=== PATIENT | male | born 1940 | race Caucasian/White ===

== ENCOUNTER 2018-10-08 15:31 | Inpatient (IN) ==
[2018-10-08] MEDS ORDERED: raNITIdine 50 MG/102 ML BAG IV STA (16:02)
[2018-10-08] MEDS ORDERED: PANTOprazole 80 MG in DEXTROSE 5% 100 ML IV ONE (16:02)
[2018-10-08] MEDS ORDERED: SODIUM CHLORIDE 0.9% 1000ML 1,000 ML IV SCH ×2 (16:15→20:00)
--- NOTE | 2018-10-08 16:19 | Emergency Department Note ---
Entered by Janie Dial acting as a scribe for Dra Stark MD History of Present Illness General Chief complaint: GI Bleed Stated complaint: GI BLEEDING Time Seen by Provider: 10/08/18 15:52 Source: patient Mode of arrival: ambulatory Limitations: no limitations History of Present Illness Provider complaint: blood in stool Onset (ago): week(s) 1 Location: buttocks Pain Consistency: + other (persistent) Quality: + other (blood in stool) Associated symptoms: + other (Associated symptoms: lightheadedness. Denies: pain , nausea, chest pain, shortness of breath) The patient is a 77 year old male who presents to the Emergency Room with complaints of persistent blood in stool beginning about 1 week ago. He reports his symptoms began as diarrhea 6 days ago, and his diarrhea has resolved over the past few days. The patient reports he has had black stools and blood in the toilet bowl. 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 The patient denies abdominal pain, nausea, chest pain, shortness of breath. He notes lightheadedness. The patient has no history of GI bleed or blood transfusion. He takes a baby aspirin daily, and no other blood thinners. The patient was sent to the ED by Dr. Medrano for black heme positive stool. Home Medications Home Medications Medication Instructions Recorded Confirmed Type acetaminophen [Tylenol Extra 500 mg PO AMPM 10/08/18 10/08/18 History Strength] amlodipine [Norvasc] 10 mg PO DAILY 10/08/18 10/08/18 History aspirin [Aspir-Low] 81 mg PO DAILY 10/08/18 10/08/18 History atorvastatin [Lipitor] 40 mg PO DAILY 10/08/18 10/08/18 History cyanocobalamin (vitamin B-12) 1,000 mcg PO DAILY 10/08/18 10/08/18 History [Vitamin B-12] hydralazine 25 mg PO BID 10/08/18 10/08/18 History indapamide 2.5 mg PO DAILY 10/08/18 10/08/18 History metformin [Glucophage XR] 500 mg PO DAILY 10/08/18 10/08/18 History metoprolol succinate [Toprol XL] 200 mg PO DAILY 10/08/18 10/08/18 History propylene glycol [Systane Balance] 1 drp OPHTHALMIC (EYE) Q6H PRN 10/08/1810/08 History quinapril [Accupril] 40 mg PO DAILY 10/08/18 10/08/18 History vit A,C and [id number]-eaudipht 1 tab PO DAILY 10/08/18 10/08/18 History [Ocuvite with Lutein] Allergies Allergy/AdvReac Type Severity Reaction Status Date / Time No Known Allergies Allergy Unverified 10/08/18 15:40 Past Med/Surg History Medical History Alcohol use (Chronic) Lumbar spinal stenosis (Chronic) Dyslipidemia (Chronic) Prediabetes (Chronic) HTN (hypertension) (Chronic) Hx of spinal stenosis (Chronic) Umbilical hernia (Chronic) Surgical History History of tonsillectomy and adenoidectomy (Chronic) History of appendectomy (Chronic) Family History Mother CHF (congestive heart failure) Social History marital status: Current Living Situation: Family Feels Safe at Home: Yes Smoking Status: Former smoker Hx Alcohol Use: Yes Alcohol type: beer Alcohol Intake Frequency: 3 or more drinks per day Alcohol Intake Frequency Comment: 6-7 beers/day Review of Systems See HPI for pertinent positives & negatives. and A total of 10 systems reviewed and were otherwise negative Physical Exam Vital Signs Vital Signs - 24 hr 10/08/18 15:40 10/08/18 16:02 10/08/18 16:03 Temperature 36.6 C Temperature Source Oral Sepsis Recent Fever Within 48 Hours No Sepsis New/Unexplained Change in Mental Status No Sepsis Action Taken by Nursing No Action Required Pulse Rate 63 59 L Pulse Rate [Finger] 57 L Pulse Rhythm Regular Pulse Strength Normal Respiratory Rate 20 15 16 Respiratory Effort / Characteristics Non-Labored Spontaneous Respiratory Depth Normal Respiratory Pattern Regular Blood Pressure 92/53 L 115/45 L Blood Pressure [Right Arm] 115/45 L Blood Pressure Mean 66 68 Blood Pressure Mean [Right Arm] 68 Blood Pressure Position Sitting Pulse Oximetry 98 99 98 Oxygen Delivery Method Room Air Room Air 10/08/18 16:07 10/08/18 16:11 10/08/18 16:20 Temperature Temperature Source Sepsis Recent Fever Within 48 Hours Sepsis New/Unexplained Change in Mental Status Sepsis Action Taken by Nursing Pulse Rate 60 62 Pulse Rate [Finger] Pulse Rhythm Pulse Strength Respiratory Rate 15 14 Respiratory Effort / Characteristics Respiratory Depth Respiratory Pattern Blood Pressure Blood Pressure [Right Arm] Blood Pressure Mean Blood Pressure Mean [Right Arm] Blood Pressure Position Pulse Oximetry 99 99 98 Oxygen Delivery Method Room Air 10/08/18 16:30 10/08/18 16:40 10/08/18 16:50 Temperature Temperature Source Sepsis Recent Fever Within 48 Hours Sepsis New/Unexplained Change in Mental Status Sepsis Action Taken by Nursing Pulse Rate 61 58 L 68 Pulse Rate [Finger] Pulse Rhythm Pulse Strength Respiratory Rate 15 16 16 Respiratory Effort / Characteristics Respiratory Depth Respiratory Pattern Blood Pressure Blood Pressure [Right Arm] Blood Pressure Mean Blood Pressure Mean [Right Arm] Blood Pressure Position Pulse Oximetry 99 100 99 Oxygen Delivery Method 10/08/18 16:58 10/08/18 17:00 10/08/18 17:01 Temperature Temperature Source Sepsis Recent Fever Within 48 Hours Sepsis New/Unexplained Change in Mental Status Sepsis Action Taken by Nursing Pulse Rate 63 58 L Pulse Rate [Finger] 73 Pulse Rhythm Pulse Strength Respiratory Rate 19 17 13 Respiratory Effort / Characteristics Respiratory Depth Respiratory Pattern Blood Pressure 115/63 Blood Pressure [Right Arm] Blood Pressure Mean 80 Blood Pressure Mean [Right Arm] Blood Pressure Position Pulse Oximetry 99 81 L 100 Oxygen Delivery Method Room Air 10/08/18 17:10 10/08/18 17:20 10/08/18 17:30 Temperature Temperature Source Sepsis Recent Fever Within 48 Hours Sepsis New/Unexplained Change in Mental Status Sepsis Action Taken by Nursing Pulse Rate 60 67 63 Pulse Rate [Finger] Pulse Rhythm Pulse Strength Respiratory Rate 19 16 21 Respiratory Effort / Characteristics Respiratory Depth Respiratory Pattern Blood Pressure Blood Pressure [Right Arm] Blood Pressure Mean Blood Pressure Mean [Right Arm] Blood Pressure Position Pulse Oximetry 99 98 98 Oxygen Delivery Method 10/08/18 17:40 10/08/18 17:50 10/08/18 18:00 Temperature Temperature Source Sepsis Recent Fever Within 48 Hours Sepsis New/Unexplained Change in Mental Status Sepsis Action Taken by Nursing Pulse Rate 58 L Pulse Rate [Finger] Pulse Rhythm Pulse Strength Respiratory Rate 16 22 26 H Respiratory Effort / Characteristics Respiratory Depth Respiratory Pattern Blood Pressure 119/50 L Blood Pressure [Right Arm] Blood Pressure Mean 73 Blood Pressure Mean [Right Arm] Blood Pressure Position Pulse Oximetry 99 97 98 Oxygen Delivery Method 10/08/18 18:01 10/08/18 18:18 10/08/18 18:34 Temperature Temperature Source Sepsis Recent Fever Within 48 Hours Sepsis New/Unexplained Change in Mental Status Sepsis Action Taken by Nursing Pulse Rate Pulse Rate [Finger] 66 Pulse Rhythm Pulse Strength Respiratory Rate 14 20 20 Respiratory Effort / Characteristics Respiratory Depth Respiratory Pattern Blood Pressure Blood Pressure [Right Arm] 119/50 L Blood Pressure Mean Blood Pressure Mean [Right Arm] 73 Blood Pressure Position Pulse Oximetry 99 97 97 Oxygen Delivery Method Room Air Room Air GENERAL: Patient is in no acute distress. HEENT: No acute trauma, normocephalic atraumatic, mucous membranes moist, no nasal congestion, no scleral icterus. NECK: No stridor, no adenopathy, no meningismus, trachea is midline. LUNGS: Clear to auscultation bilaterally, no wheeze, no rhonchi, breath sounds equal. HEART: 3/6 systolic murmur, regular rate and rhythm. ABDOMEN: Soft, nontender, bowel sounds positive, nontender umbilical hernia, no peritonitis. EXTREMITIES: No cyanosis, mild bilateral pedal edema, full range of motion of all the joints without pain or difficulty, no signs for acute trauma. NEUROLOGIC: Oriented x 3, no acute motor or sensory deficits, no focal weakness. SKIN: No rash, no jaundice, no diaphoresis. RETCAL: Black, heme positive stool as per patient's primary care office. Course 1553: Past medical records reviewed. The patient was evaluated in room A9B, and a complete history and physical examination were performed. 1703: I reviewed the patient's case [facility] She will evaluate the patient for further management. 1714: Upon reevaluation, the patient is resting. I discussed test results. They verbalized agreement with the treatment plan. Consultations Consultation #1: I reviewed the patient's case [facility]. She will evaluate the patient for further management. Time: 17:03 Administered Medications Sodium Chloride (Nss 1000ml) 1,000 mls @ 100 mls/hr IV .Q10H HUMBLE Stop: 10/09/18 02:14 Last Admin: 10/08/18 16:21 Dose: 100 mls/hr Pantoprazole Sodium 40 mg/ (Dextrose) 100 mls @ 20 mls/hr IV Q5H HUMBLE Stop: 11/07/18 16:14 Last Admin: 10/08/18 16:57 Dose: 8 mg/hr, 20 mls/hr Discontinued Medications Ranitidine HCl (Zantac) 50 mg in 102 mls @ 200 mls/hr IV NOW STA Stop: 10/08/18 16:32 Last Infusion: 10/08/18 16:57 Dose: 0 mls/hr Admin: 10/08/18 16:22 Dose: 200 mls/hr Pantoprazole Sodium 80 mg/ (Dextrose) 120 mls @ 400 mls/hr IV NOW ONE Stop: 10/08/18 16:19 Last Infusion: 10/08/18 16:57 Dose: Admin: 10/08/18 16:36 Dose: 400 mls/hr Medical Decision Making Differential Diagnosis Etiologies considered include upper GI bleeding, lower GI bleeding, anemia, electrolyte imbalance, coagulopathy, diverticulitis, ulcer, gastritis, malignancy. Medical Records Attestation: I reviewed the patient's medical records. Home Medications Current Medication List: was personally reviewed by me Laboratory Data Attestation: I reviewed the patient's lab results. Result diagrams: 10/08/18 16:25 10/08/18 16:25 Lab Results 10/08/18 10/08/18 10/08/18 Range/Units 16:21 16:25 16:25 WBC 9.47 (4.8-10.8) K/uL RBC 2.71 L (4.7-6.1) M/uL Hgb 9.2 L (14.0-18.0) g/dL Hct 27.0 L (42-52) % MCV 99.6 (80-100) fL MCH 33.9 (25-34) pg MCHC 34.1 (32-36) g/dL RDW Std Deviation 49.5 H (36.4-46.3) fL RDW Coeff of Steven 13.9 (11.5-14.5) % Plt Count 286 (130-400) K/uL MPV 10.4 (7.4-10.4) fL Immature Gran % (Auto) 0.3 % Neut % (Auto) 71.7 % Lymph % (Auto) 19.6 % Reynolds % (Auto) 7.2 % Eos % (Auto) 1.0 % Baso % (Auto) 0.2 % Immature Gran # (Auto) 0.03 H (0.00-0.02) K/uL Neut # (Auto) 6.79 H (1.4-6.5) K/uL Lymph # (Auto) 1.86 (1.2-3.4) K/uL Reynolds # (Auto) 0.68 H (0.11-0.59) K/uL Eos # (Auto) 0.09 (0-0.5) K/uL Baso # (Auto) 0.02 (0-0.2) K/uL PT 11.1 (9.0-12.0) Seconds INR 1.1 (0.9-1.1) APTT 24.5 (21.0-31.0) Seconds PTT Ratio 0.9 Sodium (136-145) mmol/L Potassium (3.5-5.1) mmol/L Chloride (98-107) mmol/L Carbon Dioxide (21-32) mmol/L Anion Gap (3-11) BUN (7-18) mg/dl Creatinine (0.6-1.4) mg/dl Est Cr Clr Drug Dosing ml/min Est GFR ( Amer) Est GFR (Non-Af Amer) BUN/Creatinine Ratio (10-20) Glucose (70-99) mg/dl Calcium (8.5-10.1) mg/dl Total Bilirubin (0.2-1) mg/dl AST (15-37) U/L ALT (12-78) U/L Alkaline Phosphatase (45-117) U/L Troponin I (0-0.045) ng/ml Total Protein (6.4-8.2) gm/dl Albumin (3.4-5.0) gm/dl Globulin (2.5-4.0) gm/dl Albumin/Globulin Ratio (0.9-2) Blood Type O Positive Antibody Screen NEGATIVE 10/08/18 Range/Units 16:25 WBC (4.8-10.8) K/uL RBC (4.7-6.1) M/uL Hgb (14.0-18.0) g/dL Hct (42-52) % MCV (80-100) fL MCH (25-34) pg MCHC (32-36) g/dL RDW Std Deviation (36.4-46.3) fL RDW Coeff of Steven (11.5-14.5) % Plt Count (130-400) K/uL MPV (7.4-10.4) fL Immature Gran % (Auto) % Neut % (Auto) % Lymph % (Auto) % Reynolds % (Auto) % Eos % (Auto) % Baso % (Auto) % Immature Gran # (Auto) (0.00-0.02) K/uL Neut # (Auto) (1.4-6.5) K/uL Lymph # (Auto) (1.2-3.4) K/uL Reynolds # (Auto) (0.11-0.59) K/uL Eos # (Auto) (0-0.5) K/uL Baso # (Auto) (0-0.2) K/uL PT (9.0-12.0) Seconds INR (0.9-1.1) APTT (21.0-31.0) Seconds PTT Ratio Sodium 132 L (136-145) mmol/L Potassium 3.1 L (3.5-5.1) mmol/L Chloride 96 L (98-107) mmol/L Carbon Dioxide 25 (21-32) mmol/L Anion Gap 11.0 (3-11) BUN 25 H (7-18) mg/dl Creatinine 1.23 (0.6-1.4) mg/dl Est Cr Clr Drug Dosing 62.1 ml/min Est GFR ( Amer) 64.3 Est GFR (Non-Af Amer) 55.5 BUN/Creatinine Ratio 20.1 H (10-20) Glucose 114 H (70-99) mg/dl Calcium 9.0 (8.5-10.1) mg/dl Total Bilirubin 0.4 (0.2-1) mg/dl AST 24 (15-37) U/L ALT 34 (12-78) U/L Alkaline Phosphatase 78 (45-117) U/L Troponin I < 0.015 (0-0.045) ng/ml Total Protein 7.2 (6.4-8.2) gm/dl Albumin 3.6 (3.4-5.0) gm/dl Globulin 3.6 (2.5-4.0) gm/dl Albumin/Globulin Ratio 1.0 (0.9-2) Blood Type Antibody Screen Imaging Data Radiologist's Impression: Radiology results as stated below per my review and the radiologist's interpretation: XR chest 1V portable HISTORY: 77 years-old Male gi bleed acute GI bleed COMPARISON: None available TECHNIQUE: Portable AP view of the chest FINDINGS: Cardiac silhouette is mildly enlarged. Calcification the thoracic aortic arch. There is no pneumothorax, large pleural effusion, focal airspace consolidation or overt pulmonary edema. Mild blunting of the costophrenic angles may reflect atelectasis or trace effusions. Bones of the chest appear grossly intact. Right rotator cuff calcific tendinosis. IMPRESSION: Cardiomegaly without acute process. The above report was generated using voice recognition software. It may contain grammatical, syntax or spelling errors. Electronically signed by: David Hemphill M.D. 10/08/2018 4:52 PM ECG Data Attestation: I personally reviewed and interpreted this ECG as follows: Indication: weakness Rate (beats per minute): 57 Rhythm: sinus bradycardia Findings: no PVC and no ST elevation Blood Pressure Blood Pressure Findings: Normal blood pressure Blood Pressure Disposition: did not require urgent referral MDM Narrative There is no leukocytosis. The patient is anemic with a hemoglobin of 9.2. This is consistent with his blood per rectum. There is no coagulopathy. No concerning electrolyte abnormality or renal failure. No evidence for hepatitis. EKG showed a sinus rhythm, no acute ischemia. Cardiac enzyme testing x1 is not consistent with acute cardiac injury. Chest film did not show pneumonia or CHF. On exam, the patient was not febrile or toxic. His stool was heme positive as per his doctor's visit today. The patient received IV saline, he was given IV Zantac and IV Protonix. He was placed on a Protonix drip. His low blood pressure improved with the IV fluids. The patient requires a hospital stay. At this point, he does not require blood a transfusion, his hemoglobin will need followed. GI needs to be involved. Based on his story, I suspect upper GI bleeding. I did speak to the patient and welfare case worker. The on-call hospitalist was consulted. Impression & Plan GI bleed, Hypotension, Anemia, Lightheadedness Critical Care Time I have personally spent greater than 34 minutes of critical care time in the direct management of this patient. This includes bedside care, interpretation of diagnostic studies and testing, discussion with consultants, the patient, and family members, and other required patient management activities. This 34 minutes is in excess of all separately billable procedures. Critical Care Time: Yes Total Critical Care Time: 34 Discharge Plan Visit Data Chief Complaint: GI Bleed Stated Complaint: GI BLEEDING ED Provider: Dar Stark Discharge Problem: GI bleed, Hypotension, Anemia, Lightheadedness Patient Disposition: Being Evaluated by Hospitalist Discharge Instructions Interventions: ED Discharge Assessment Last Done: 10/08/18 18:34 Forms Stand Alone Forms: My [facility] Prescriptions Prescriptions: No Action atorvastatin [Lipitor] 40 mg tablet 40 mg PO DAILY RF: 0 cyanocobalamin (vitamin B-12) [Vitamin B-12] 1,000 mcg tablet 1,000 mcg PO DAILY RF: 0 aspirin [Aspir-Low] 81 mg Tablet,Delayed Release (Dr/Ec) 81 mg PO DAILY RF: 0 vit A,C and [id number]-bsaiowtz [Ocuvite with Lutein] 1,000 unit-200 mg-60 unit- 2 mg Tablet 1 tab PO DAILY RF: 0 propylene glycol [Systane Balance] 0.6 % Drops 1 drp OPHTHALMIC (EYE) Q6H PRN (Reason: Dry Eyes) RF: 0 indapamide 2.5 mg tablet 2.5 mg PO DAILY RF: 0 metoprolol succinate [Toprol XL] 200 mg tablet extended release 24 hr 200 mg PO DAILY RF: 0 hydralazine 25 mg Tablet 25 mg PO BID RF: 0 acetaminophen [Tylenol Extra Strength] 500 mg Tablet 500 mg PO AMPM RF: 0 quinapril [Accupril] 40 mg tablet 40 mg PO DAILY RF: 0 amlodipine [Norvasc] 10 mg tablet 10 mg PO DAILY RF: 0 metformin [Glucophage XR] 500 mg tablet extended release 24 hr 500 mg PO DAILY RF: 0 Referrals Referrals: Jerry Medrano [Primary Care Provider] - The scribe's documentation has been prepared under my direction and personally reviewed by me in its entirety. I confirm that the note above accurately reflects all work, treatment, procedures, and medical decision making performed by me.
[2018-10-08 16:35] LABS: Basophils # (auto) 0.02 K/uL (0-0.2); Basophils % (auto) 0.2 %; Eosinophils # (auto) 0.09 K/uL (0-0.5); Hemoglobin 9.2 g/dL (14.0-18.0); Immature Granulocytes # (auto) 0.03 K/uL (0.00-0.02); Immature Granulocytes % (auto) 0.3 %; Lymphocytes # (auto) 1.86 K/uL (1.2-3.4); Lymphocytes % (auto) 19.6 %; Mean Corpuscular Hgb Conc 34.1 g/dL (32-36); Mean Corpuscular Volume 99.6 fL (80-100); Mean Platelet Volume 10.4 fL (7.4-10.4); Monocytes # (auto) 0.68 K/uL (0.11-0.59); Monocytes % (auto) 7.2 %; Neutrophils # (auto) 6.79 K/uL (1.4-6.5); Neutrophils % (auto) 71.7 %; Platelet Count 286 K/uL (130-400); RDW Coefficient of Variation 13.9 % (11.5-14.5); RDW Standard Deviation 49.5 fL (36.4-46.3); Red Blood Count 2.71 M/uL (4.7-6.1); White Blood Count 9.47 K/uL (4.8-10.8)
[2018-10-08 16:46] LABS: INR 1.1 (0.9-1.1); Partial Thromboplastin Ratio 0.9; Partial Thromboplastin Time 24.5 Seconds (21.0-31.0); Prothrombin Time 11.1 Seconds (9.0-12.0)
[2018-10-08 16:50] LABS: Alanine Aminotransferase 34 U/L (12-78); Albumin Level 3.6 gm/dl (3.4-5.0); Aspartate Aminotransferase 24 U/L (15-37); BUN Creatinine Ratio 20.1 (10-20); Blood Urea Nitrogen 25 mg/dl (7-18); Carbon Dioxide 25 mmol/L (21-32); Chloride 96 mmol/L (98-107); Creatinine Clr Calc Pharmacy 62.1 ml/min; Est GFR (African American) 64.3; Est GFR (Non-African American) 55.5; Glucose 114 mg/dl (70-99); Potassium 3.1 mmol/L (3.5-5.1); Sodium 132 mmol/L (136-145)
--- NOTE | 2018-10-08 16:53 | XRay Report ---
XR chest 1V portable HISTORY: 77 years-old Male gi bleed acute GI bleed COMPARISON: None available TECHNIQUE: Portable AP view of the chest FINDINGS: Cardiac silhouette is mildly enlarged. Calcification the thoracic aortic arch. There is no pneumothor ax, large pleural effusion, focal airspace consolidation or overt pulmonary edema. Mild blunting of t he costophrenic angles may reflect atelectasis or trace effusions. Bones of the chest appear grossly intact. Right rotator cuff calcific tendinosis. IMPRESSION: Cardiomegaly without acute process. The above report was generated using voice recognition software. It may contain grammatical, syntax o r spelling errors. Electronically signed by: David Hemphill M.D. 10/08/2018 4:52 PM
[2018-10-08 16:55] LABS: Alkaline Phosphatase 78 U/L (45-117); Bilirubin,Total 0.4 mg/dl (0.2-1); Globulin 3.6 gm/dl (2.5-4.0); Total Protein 7.2 gm/dl (6.4-8.2); Troponin I < 0.015 ng/ml (0-0.045)
[2018-10-08] MEDS: PANTOprazole 40 MG in DEXTROSE 5% 100 ML IV SCH ×2 (16:57→21:47)
--- NOTE | 2018-10-08 18:33 | History & Physical Report ---
Date of Service October 08, 2018 Assessment & Plan (1) GI bleed: (2) Anemia: -Admit to [facility] with telemetry -Patient sent to ED by PCP for evaluation of lightheadedness and black stools -Patient reports 1 week of black diarrhea, initially with some bright red blood ; over the past day, stools have been more formed and brown -In the ED, Hgb 9.2 (unknown baseline); BP borderline low, systolics 110s -Recheck Hgb at 2200, transfuse if < 8.0 -Started on PPI drip in the ED, will continue with -Clear liquids, n.p.o. after midnight -GI consult -Patient had been taking naproxen regularly however stopped 1 month ago -History of chronic alcohol use, however noted normal LFTs, low suspicion for varices -No history of prior EGD or colonoscopy (3) HTN (hypertension): -Hold amlodipine, quinapril, hydralazine, indapamide, metoprolol for now due to borderline low BPs (4) Prediabetes: -Hgb A1c 5.5 02/2018 -Hold metformin and utilize NovoLog per protocol while hospitalized (5) Dyslipidemia: -Hold statin for now (6) Alcohol use: -Patient reports 6-7 beers/day -No history of withdrawal in the past, and no alcohol use in the past 5 days -will place on alcohol withdrawal "at risk" protocol -Consider starting multivitamin, folic acid, B12 (7) DVT prophylaxis: -SCDs due to GI bleeding History of Present Illness Chief Complaint: Black Stools, Lightheaded Primary Care Provider: Jerry Medrano 77-year-old male who was sent to the ED by his PCP for evaluation of black stools and lightheadedness. Patient reports he developed black diarrhea about 6 days ago. Initially, he reports some bright red blood. Over the past day, stools have become formed and more brown. He reports some mild lightheadedness but denies any dizziness or syncopal events. No abdominal pain, nausea, vomiting. He denies chest pain or shortness of breath. No fevers or chills. He denies any urinary symptoms. Patient reports he had been taking naproxen somewhat regularly however stopped 1 month ago and now takes Tylenol twice daily for pain. He takes a baby aspirin, no other antiplatelets or anticoagulants. In the ED, hemoglobin 9.2 (unknown baseline), BP borderline low with systolic blood pressures 110s. Patient was given IVF and started on PPI drip. Allergies Allergy/AdvReac Type Severity Reaction Status Date / Time No Known Allergies Allergy Unverified 10/08/18 15:40 Home Medications Home Medications Medication Instructions Recorded Confirmed Type acetaminophen [Tylenol Extra 500 mg PO AMPM 10/08/18 10/08/18 History Strength] amlodipine [Norvasc] 10 mg PO DAILY 10/08/18 10/08/18 History aspirin [Aspir-Low] 81 mg PO DAILY 10/08/18 10/08/18 History atorvastatin [Lipitor] 40 mg PO DAILY 10/08/18 10/08/18 History cyanocobalamin (vitamin B-12) 1,000 mcg PO DAILY 10/08/18 10/08/18 History [Vitamin B-12] hydralazine 25 mg PO BID 10/08/18 10/08/18 History indapamide 2.5 mg PO DAILY 10/08/18 10/08/18 History metformin [Glucophage XR] 500 mg PO DAILY 10/08/18 10/08/18 History metoprolol succinate [Toprol XL] 200 mg PO DAILY 10/08/18 10/08/18 History propylene glycol [Systane Balance] 1 drp OPHTHALMIC (EYE) Q6H PRN 10/08/1810/08 History quinapril [Accupril] 40 mg PO DAILY 10/08/18 10/08/18 History vit A,C and I-bhpbyb-semxwviy 1 tab PO DAILY 10/08/18 10/08/18 History [Ocuvite with Lutein] Past Med/Surg History Medical History Alcohol use (Chronic) Lumbar spinal stenosis (Chronic) Dyslipidemia (Chronic) Prediabetes (Chronic) HTN (hypertension) (Chronic) Hx of spinal stenosis (Chronic) Umbilical hernia (Chronic) Surgical History History of tonsillectomy and adenoidectomy (Chronic) History of appendectomy (Chronic) Family History Mother CHF (congestive heart failure) Social History marital status: Current Living Situation: Spouse Other Information That Helps Us Care for You: No Feels Safe at Home: Yes Safety Concerns: Feels Safe At This Time Smoking Status: Former smoker Do You Dip or Chew Tobacco: No Smoking End Date: 30 years ago Second Hand Exposure: No Hx Alcohol Use: Yes Alcohol type: beer Alcohol Intake Frequency: 3 or more drinks per day Alcohol Intake Frequency Comment: 6-7 beers/day Hx Substance Use: No Beliefs That Will Affect Care: None Preferred Language: [place] Communication Ability: Effective [employer] Salesperson Required: No Review of Systems ROS per HPI, all other systems reviewed and negative Physical Exam 2 Vital Signs (Past 24 Hours): Last Vital Signs Temp 36.6 C 10/08/18 15:40 Pulse 66 10/08/18 18:18 Resp 20 10/08/18 18:18 BP 119/50 L 10/08/18 18:18 Pulse Ox 97 10/08/18 18:18 Constitutional: WD/WN, vitals as above + obese Eyes: PERRL, conjunctivae normal, anicteric sclerae ENMT: external ear and nose normal, oropharynx normal Respiratory: normal respiratory effort, lungs clear to auscultation Cardiovascular: Rate/Rhythm: regular rate and regular rhythm Vessels: normal peripheral pulses Extremities: + edema (+1 BLLE) Gastrointestinal (Abdomen): Inspection/Auscultation: + abdomen distended and normal bowel sounds Percussion/Palpation: abdomen soft and + hernia ( umbilican); abdomen nontender and no hepatosplenomegaly Musculoskeletal: no cyanosis or clubbing, extremities motor strength 5/5 Skin: no rashes, warm and dry Neurologic: PERRL, EOMI, accommodation nl, no face palsy, no dysarthria Psychiatric: A+Ox3, euthymic affect Results & Data Laboratory Results Laboratory Last Values WBC 9.47 K/uL (4.8-10.8) 10/08/18 16:25 RBC 2.71 M/uL (4.7-6.1) L 10/08/18 16:25 Hgb 9.2 g/dL (14.0-18.0) L 10/08/18 16:25 Hct 27.0 % (42-52) L 10/08/18 16:25 MCV 99.6 fL (80-100) 10/08/18 16:25 MCH 33.9 pg (25-34) 10/08/18 16:25 MCHC 34.1 g/dL (32-36) 10/08/18 16:25 RDW Std Deviation 49.5 fL (36.4-46.3) H 10/08/18 16:25 RDW Coeff of Steven 13.9 % (11.5-14.5) 10/08/18 16:25 Plt Count 286 K/uL (130-400) 10/08/18 16:25 MPV 10.4 fL (7.4-10.4) 10/08/18 16:25 Immature Gran % (Auto) 0.3 % 10/08/18 16:25 Neut % (Auto) 71.7 % 10/08/18 16:25 Lymph % (Auto) 19.6 % 10/08/18 16:25 Otoe % (Auto) 7.2 % 10/08/18 16:25 Eos % (Auto) 1.0 % 10/08/18 16:25 Baso % (Auto) 0.2 % 10/08/18 16:25 Immature Gran # (Auto) 0.03 K/uL (0.00-0.02) H 10/08/18 16:25 Neut # (Auto) 6.79 K/uL (1.4-6.5) H 10/08/18 16:25 Lymph # (Auto) 1.86 K/uL (1.2-3.4) 10/08/18 16:25 Otoe # (Auto) 0.68 K/uL (0.11-0.59) H 10/08/18 16:25 Eos # (Auto) 0.09 K/uL (0-0.5) 10/08/18 16:25 Baso # (Auto) 0.02 K/uL (0-0.2) 10/08/18 16:25 PT 11.1 Seconds (9.0-12.0) 10/08/18 16:25 INR 1.1 (0.9-1.1) 10/08/18 16:25 APTT 24.5 Seconds (21.0-31.0) 10/08/18 16:25 PTT Ratio 0.9 10/08/18 16:25 Sodium 132 mmol/L (136-145) L 10/08/18 16:25 Potassium 3.1 mmol/L (3.5-5.1) L 10/08/18 16:25 Chloride 96 mmol/L (98-107) L 10/08/18 16:25 Carbon Dioxide 25 mmol/L (21-32) 10/08/18 16:25 Anion Gap 11.0 (3-11) 10/08/18 16:25 BUN 25 mg/dl (7-18) H 10/08/18 16:25 Creatinine 1.23 mg/dl (0.6-1.4) 10/08/18 16:25 Est Cr Clr Drug Dosing 62.1 ml/min 10/08/18 16:25 Est GFR ( Amer) 64.3 10/08/18 16:25 Est GFR (Non-Af Amer) 55.5 10/08/18 16:25 BUN/Creatinine Ratio 20.1 (10-20) H 10/08/18 16:25 Glucose 114 mg/dl (70-99) H 10/08/18 16:25 Calcium 9.0 mg/dl (8.5-10.1) 10/08/18 16:25 Total Bilirubin 0.4 mg/dl (0.2-1) 10/08/18 16:25 AST 24 U/L (15-37) 10/08/18 16:25 ALT 34 U/L (12-78) 10/08/18 16:25 Alkaline Phosphatase 78 U/L (45-117) 10/08/18 16:25 Troponin I < 0.015 ng/ml (0-0.045) 10/08/18 16:25 Total Protein 7.2 gm/dl (6.4-8.2) 10/08/18 16:25 Albumin 3.6 gm/dl (3.4-5.0) 10/08/18 16:25 Globulin 3.6 gm/dl (2.5-4.0) 10/08/18 16:25 Albumin/Globulin Ratio 1.0 (0.9-2) 10/08/18 16:25 Blood Type O Positive 10/08/18 16:21 Antibody Screen NEGATIVE 10/08/18 16:21 Diagnostic Findings CXR IMPRESSION: Cardiomegaly without acute process. Code Status & VTE Plan VTE Prophylaxis Plan VTE Prophylaxis will be ordered: Yes Supervising Physician Co-Signing Physician Notes Patient is a 77 yr male who presents with melena, lightheadedness since 1 week duration. Patient had diarrhea 6 days ago which currently resolved. He is currently on aspirin. Patient was taking Naproxen which he stopped 1 month ago. He admits to drinking beer on a daily basis but denies any history of liver disease in the past. Hb is 9.2 today. Patient will be started on IV Protonix, IV fluids, aspirin held and NPO after midnight for possible EGD/Colonoscopy in AM. GI consulted. Monitor for alcohol withdrawal. Start on Thiamine and folic acid in AM once after EGD. Potassium and magnesium supplements for electrolyte imbalance. On exam patient is Obese, No distress, Lungs CTA, S1, S2, +murmur, Abdominal/umbilical hernia, 1+ B/L LE edema. I personally reviewed the record. Patient is interviewed and examined at bedside. Patient's care is coordinated with Tomasa Souza INTERNAL MEDICINE NURSE. Please refer to the documentation above for details of patient's presentation and for discussion of other issues.
[2018-10-08] MEDS ORDERED: GLUCAGON FOR INJ 1 MG VIAL SQ PRN (19:54)
[2018-10-08] MEDS ORDERED: GLUCOSE 10 TABS/TUBE PO PRN (19:54)
[2018-10-08] MEDS ORDERED: ARTIFICIAL TEARS OP PRN (19:54)
[2018-10-08] MEDS ORDERED: CARBOHYDRATES FOR HYPOGLYCEMIA PO PRN (19:54)
[2018-10-08] MEDS ORDERED: DEXTROSE 50% 50 ML SYRINGE IV PRN (19:54)
[2018-10-08] MEDS ORDERED: GLUCOSE 40% GEL 15 GM TUBE PO PRN (19:54)
[2018-10-08] MEDS ORDERED: ACETAMINOPHEN 325 MG TAB PO PRN (19:54)
[2018-10-08] MEDS ORDERED: LORazepam 1 MG TAB PO PRN (19:54)
[2018-10-08] MEDS ORDERED: POTASSIUM CHLORIDE 20 MEQ TABCR PO STA (19:57)
[2018-10-08] MEDS: MAGNESIUM SULFATE / D5W 1 GM/100 ML BAG IV SCH ×2 (21:56→23:23)
[2018-10-08] MEDS: INSULIN ASPART 100 UNITS/ML 3 ML PEN SC SCH (22:17)
[2018-10-08 22:32] LABS: Hematocrit (blood only) 23.8 % (42-52); Hemoglobin 8.2 g/dL (14.0-18.0)
[2018-10-09] MEDS: PANTOprazole 40 MG in DEXTROSE 5% 100 ML IV SCH ×5 (02:28→22:21)
[2018-10-09] MEDS ORDERED: MAGNESIUM SULFATE / D5W 1 GM/100 ML BAG IV ONE (03:36)
[2018-10-09] MEDS ORDERED: POTASSIUM CHLORIDE 20 MEQ TABCR PO STA ×2 (03:36→05:44)
[2018-10-09] MEDS: NSS + 20MEQ KCL 20 MEQ/1,000 ML BAG IV SCH ×2 (04:16→17:32)
[2018-10-09] MEDS: METOPROLOL SUCC 25MG EXT REL TAB PO SCH (04:20)
[2018-10-09 04:38] LABS: Basophils # (auto) 0.03 K/uL (0-0.2); Basophils % (auto) 0.4 %; Eosinophils # (auto) 0.15 K/uL (0-0.5); Eosinophils % (auto) 1.8 %; Hemoglobin 8.2 g/dL (14.0-18.0); Immature Granulocytes # (auto) 0.02 K/uL (0.00-0.02); Immature Granulocytes % (auto) 0.2 %; Lymphocytes # (auto) 2.43 K/uL (1.2-3.4); Lymphocytes % (auto) 29.6 %; Mean Corpuscular Hgb Conc 34.2 g/dL (32-36); Mean Corpuscular Volume 99.2 fL (80-100); Mean Platelet Volume 10.2 fL (7.4-10.4); Monocytes # (auto) 0.73 K/uL (0.11-0.59); Monocytes % (auto) 8.9 %; Neutrophils # (auto) 4.84 K/uL (1.4-6.5); Neutrophils % (auto) 59.1 %; Platelet Count 247 K/uL (130-400); RDW Standard Deviation 50.1 fL (36.4-46.3); Red Blood Count 2.42 M/uL (4.7-6.1)
[2018-10-09 04:54] LABS: BUN Creatinine Ratio 19.5 (10-20); Calcium 8.1 mg/dl (8.5-10.1); Est GFR (African American) 84.6; Magnesium 2.1 mg/dl (1.8-2.4)
[2018-10-09 05:07] LABS: RBC Morphology Unremarkable
[2018-10-09] MEDS: ATORVASTATIN 40 MG TAB PO SCH ×2 (08:18→12:45)
[2018-10-09] MEDS: AMLODIPINE BESYLATE 5 MG TAB PO SCH ×2 (08:19→08:25)
[2018-10-09] MEDS: INSULIN ASPART 100 UNITS/ML 3 ML PEN SC SCH ×4 (08:21→20:53)
--- NOTE | 2018-10-09 09:28 | Gastrointestinal Consultation ---
Date of Consultation October 09, 2018 Assessment & Plan (1) Anemia: 77 year old male admitted with anemia, HGB 8.2 and resolved melena. He was on daily ASA and using BID aleve for back pain. DDX discussed: UGI bleed vs LGI bleed. - Electrolytes per primary service - IV PPI drip - NPO - EGD today - Trend H&H - Tranfuse PRN - Monitor GI output - Pending results of EGD will discuss if colonoscopy is warranted - He has never had a colonscopy and is hesistant to arranging this Supervising Physician Co-Signing Physician Notes I saw and evaluated the patient. He reports having a week of dark sticky stool as an outpatient which is resolved since admission. We have elected to pursue upper endoscopy this morning. Physical examination No obvious distress Regular rhythm without a murmur today Impression: Patient with a possible upper GI bleed in the recent past. I would suggest upper endoscopy today for risk stratification. We have discussed the risks to include bleeding, infection, perforation and pain. History of Present Illness Reason for Consultation: melena Requesting Physician: Victoria Attending Physician: Jose A Iqbal DO History of Present Illness 77 year old male with prediabetes, HTN, spinal stenosis who presents in the ED from PCP for evaluation of melena, anemia. Pt was seen and evaluated, chart reviewed. Endorses 1 week of dark stools with intermittent episods of BRBPR. Would move bowels 2-3 times a day. Denies any abd pain. No epigastric pain, burning, regurgitation. No dysphagia. No nausea, vomiting. Notes his dark stools spontaneously resolved and is now having brown stools - although still diarrhea. Today, feels well. no lightheadheadness, dizziness, CP, SOB. NSAIDs: was using aleve BID x 2 months for back pain, now stopped ETOH: daily 5-6 drinks ASA: daily AC: none EGD: none Colonoscopy: none Allergies Allergy/AdvReac Type Severity Reaction Status Date / Time No Known Allergies Allergy Unverified 10/08/18 15:40 Home Medications Home Medications Medication Instructions Recorded Confirmed Type acetaminophen [Tylenol Extra 500 mg PO AMPM 10/08/18 10/08/18 History Strength] amlodipine [Norvasc] 10 mg PO DAILY 10/08/18 10/08/18 History aspirin [Aspir-Low] 81 mg PO DAILY 10/08/18 10/08/18 History atorvastatin [Lipitor] 40 mg PO DAILY 10/08/18 10/08/18 History cyanocobalamin (vitamin B-12) 1,000 mcg PO DAILY 10/08/18 10/08/18 History [Vitamin B-12] hydralazine 25 mg PO BID 10/08/18 10/08/18 History indapamide 2.5 mg PO DAILY 10/08/18 10/08/18 History metformin [Glucophage XR] 500 mg PO DAILY 10/08/18 10/08/18 History metoprolol succinate [Toprol XL] 200 mg PO DAILY 10/08/18 10/08/18 History propylene glycol [Systane Balance] 1 drp OPHTHALMIC (EYE) Q6H PRN 10/08/1810/08 History quinapril [Accupril] 40 mg PO DAILY 10/08/18 10/08/18 History vit A,C and Z-ooyyhg-tcksdabr 1 tab PO DAILY 10/08/18 10/08/18 History [Ocuvite with Lutein] Patient History Medical History Alcohol use (Chronic) Lumbar spinal stenosis (Chronic) Dyslipidemia (Chronic) Prediabetes (Chronic) HTN (hypertension) (Chronic) Hx of spinal stenosis (Chronic) Umbilical hernia (Chronic) Surgical History History of tonsillectomy and adenoidectomy (Chronic) History of appendectomy (Chronic) Family History Mother CHF (congestive heart failure) Social History marital status: Current Living Situation: Spouse Other Information That Helps Us Care for You: No Feels Safe at Home: Yes Safety Concerns: Feels Safe At This Time Smoking Status: Former smoker Do You Dip or Chew Tobacco: No Smoking End Date: 30 years ago Hx Alcohol Use: Yes Alcohol type: beer Alcohol Intake Frequency: 3 or more drinks per day Alcohol Intake Frequency Comment: 6-7 beers/day Hx Substance Use: No Beliefs That Will Affect Care: None Preferred Language: Irish Communication Ability: Effective Domestic Technician Required: No Review of Systems Constitutional: no fever and no chills Respiratory: no cough, no chest congestion and no dyspnea Cardiovascular: no chest pain, no radiating jaw, neck or arm pain and no dyspnea Gastrointestinal: + blood in stools (now resolved) and + melena (now resolved); no abdominal pain, no belching, no early satiety, no heartburn, no coffee ground emesis, no hematemesis, no pain with swallowing, no dysphagia and no cramping Physical Exam 2 Vital Signs (Past 24 Hours): Last Vital Signs Temp 36.7 C 10/09/18 07:22 Pulse 63 10/09/18 07:22 Resp 16 10/09/18 07:22 BP 102/56 L 10/09/18 07:22 Pulse Ox 98 10/09/18 07:22 Constitutional: well nourished, cooperative, comfortable and + overweight; no acute distress Respiratory: normal respiratory effort, lungs clear to auscultation Cardiovascular: RRR, no murmur, no edema Gastrointestinal (Abdomen): normal bowel sounds, soft, nontender, no hepatosplenomegaly Results & Data Laboratory Results 10/09/18 10/09/18 10/09/18 Range/Units 07:19 04:11 04:11 WBC 8.20 (4.8-10.8) K/uL RBC 2.42 L (4.7-6.1) M/uL Hgb 8.2 L (14.0-18.0) g/dL Hct 24.0 L (42-52) % MCV 99.2 (80-100) fL MCH 33.9 (25-34) pg MCHC 34.2 (32-36) g/dL RDW Std Deviation 50.1 H (36.4-46.3) fL RDW Coeff of Steven 14.0 (11.5-14.5) % Plt Count 247 (130-400) K/uL MPV 10.2 (7.4-10.4) fL Immature Gran % (Auto) 0.2 % Neut % (Auto) 59.1 % Lymph % (Auto) 29.6 % Stark % (Auto) 8.9 % Eos % (Auto) 1.8 % Baso % (Auto) 0.4 % Immature Gran # (Auto) 0.02 (0.00-0.02) K/uL Neut # (Auto) 4.84 (1.4-6.5) K/uL Lymph # (Auto) 2.43 (1.2-3.4) K/uL Stark # (Auto) 0.73 H (0.11-0.59) K/uL Eos # (Auto) 0.15 (0-0.5) K/uL Baso # (Auto) 0.03 (0-0.2) K/uL RBC Morphology Unremarkable PT (9.0-12.0) Seconds INR (0.9-1.1) APTT (21.0-31.0) Seconds PTT Ratio Sodium 134 L (136-145) mmol/L Potassium 3.0 L (3.5-5.1) mmol/L Chloride 102 (98-107) mmol/L Carbon Dioxide 23 (21-32) mmol/L Anion Gap 9.0 (3-11) BUN 19 H (7-18) mg/dl Creatinine 0.98 (0.6-1.4) mg/dl Est Cr Clr Drug Dosing 77.0 ml/min Est GFR ( Amer) 84.6 Est GFR (Non-Af Amer) 73.0 BUN/Creatinine Ratio 19.5 (10-20) Glucose 106 H (70-99) mg/dl POC Glucose 120 H (70-99) Calcium 8.1 L (8.5-10.1) mg/dl Magnesium 2.1 (1.8-2.4) mg/dl Total Bilirubin (0.2-1) mg/dl AST (15-37) U/L ALT (12-78) U/L Alkaline Phosphatase (45-117) U/L Troponin I (0-0.045) ng/ml Total Protein (6.4-8.2) gm/dl Albumin (3.4-5.0) gm/dl Globulin (2.5-4.0) gm/dl Albumin/Globulin Ratio (0.9-2) Blood Type Antibody Screen 10/08/18 10/08/18 10/08/18 Range/Units 22:18 22:12 16:25 WBC (4.8-10.8) K/uL RBC (4.7-6.1) M/uL Hgb 8.2 L (14.0-18.0) g/dL Hct 23.8 L (42-52) % MCV (80-100) fL MCH (25-34) pg MCHC (32-36) g/dL RDW Std Deviation (36.4-46.3) fL RDW Coeff of Steven (11.5-14.5) % Plt Count (130-400) K/uL MPV (7.4-10.4) fL Immature Gran % (Auto) % Neut % (Auto) % Lymph % (Auto) % Stark % (Auto) % Eos % (Auto) % Baso % (Auto) % Immature Gran # (Auto) (0.00-0.02) K/uL Neut # (Auto) (1.4-6.5) K/uL Lymph # (Auto) (1.2-3.4) K/uL Stark # (Auto) (0.11-0.59) K/uL Eos # (Auto) (0-0.5) K/uL Baso # (Auto) (0-0.2) K/uL RBC Morphology PT (9.0-12.0) Seconds INR (0.9-1.1) APTT (21.0-31.0) Seconds PTT Ratio Sodium (136-145) mmol/L Potassium (3.5-5.1) mmol/L Chloride (98-107) mmol/L Carbon Dioxide (21-32) mmol/L Anion Gap (3-11) BUN (7-18) mg/dl Creatinine (0.6-1.4) mg/dl Est Cr Clr Drug Dosing ml/min Est GFR ( Amer) Est GFR (Non-Af Amer) BUN/Creatinine Ratio (10-20) Glucose (70-99) mg/dl POC Glucose 143 H (70-99) Calcium (8.5-10.1) mg/dl Magnesium 1.6 L (1.8-2.4) mg/dl Total Bilirubin (0.2-1) mg/dl AST (15-37) U/L ALT (12-78) U/L Alkaline Phosphatase (45-117) U/L Troponin I (0-0.045) ng/ml Total Protein (6.4-8.2) gm/dl Albumin (3.4-5.0) gm/dl Globulin (2.5-4.0) gm/dl Albumin/Globulin Ratio (0.9-2) Blood Type Antibody Screen 10/08/18 10/08/18 10/08/18 Range/Units 16:25 16:25 16:25 WBC 9.47 (4.8-10.8) K/uL RBC 2.71 L (4.7-6.1) M/uL Hgb 9.2 L (14.0-18.0) g/dL Hct 27.0 L (42-52) % MCV 99.6 (80-100) fL MCH 33.9 (25-34) pg MCHC 34.1 (32-36) g/dL RDW Std Deviation 49.5 H (36.4-46.3) fL RDW Coeff of Steven 13.9 (11.5-14.5) % Plt Count 286 (130-400) K/uL MPV 10.4 (7.4-10.4) fL Immature Gran % (Auto) 0.3 % Neut % (Auto) 71.7 % Lymph % (Auto) 19.6 % Stark % (Auto) 7.2 % Eos % (Auto) 1.0 % Baso % (Auto) 0.2 % Immature Gran # (Auto) 0.03 H (0.00-0.02) K/uL Neut # (Auto) 6.79 H (1.4-6.5) K/uL Lymph # (Auto) 1.86 (1.2-3.4) K/uL Stark # (Auto) 0.68 H (0.11-0.59) K/uL Eos # (Auto) 0.09 (0-0.5) K/uL Baso # (Auto) 0.02 (0-0.2) K/uL RBC Morphology PT 11.1 (9.0-12.0) Seconds INR 1.1 (0.9-1.1) APTT 24.5 (21.0-31.0) Seconds PTT Ratio 0.9 Sodium 132 L (136-145) mmol/L Potassium 3.1 L (3.5-5.1) mmol/L Chloride 96 L (98-107) mmol/L Carbon Dioxide 25 (21-32) mmol/L Anion Gap 11.0 (3-11) BUN 25 H (7-18) mg/dl Creatinine 1.23 (0.6-1.4) mg/dl Est Cr Clr Drug Dosing 62.1 ml/min Est GFR ( Amer) 64.3 Est GFR (Non-Af Amer) 55.5 BUN/Creatinine Ratio 20.1 H (10-20) Glucose 114 H (70-99) mg/dl POC Glucose (70-99) Calcium 9.0 (8.5-10.1) mg/dl Magnesium (1.8-2.4) mg/dl Total Bilirubin 0.4 (0.2-1) mg/dl AST 24 (15-37) U/L ALT 34 (12-78) U/L Alkaline Phosphatase 78 (45-117) U/L Troponin I < 0.015 (0-0.045) ng/ml Total Protein 7.2 (6.4-8.2) gm/dl Albumin 3.6 (3.4-5.0) gm/dl Globulin 3.6 (2.5-4.0) gm/dl Albumin/Globulin Ratio 1.0 (0.9-2) Blood Type Antibody Screen 10/08/18 Range/Units 16:21 WBC (4.8-10.8) K/uL RBC (4.7-6.1) M/uL Hgb (14.0-18.0) g/dL Hct (42-52) % MCV (80-100) fL MCH (25-34) pg MCHC (32-36) g/dL RDW Std Deviation (36.4-46.3) fL RDW Coeff of Steven (11.5-14.5) % Plt Count (130-400) K/uL MPV (7.4-10.4) fL Immature Gran % (Auto) % Neut % (Auto) % Lymph % (Auto) % Stark % (Auto) % Eos % (Auto) % Baso % (Auto) % Immature Gran # (Auto) (0.00-0.02) K/uL Neut # (Auto) (1.4-6.5) K/uL Lymph # (Auto) (1.2-3.4) K/uL Stark # (Auto) (0.11-0.59) K/uL Eos # (Auto) (0-0.5) K/uL Baso # (Auto) (0-0.2) K/uL RBC Morphology PT (9.0-12.0) Seconds INR (0.9-1.1) APTT (21.0-31.0) Seconds PTT Ratio Sodium (136-145) mmol/L Potassium (3.5-5.1) mmol/L Chloride (98-107) mmol/L Carbon Dioxide (21-32) mmol/L Anion Gap (3-11) BUN (7-18) mg/dl Creatinine (0.6-1.4) mg/dl Est Cr Clr Drug Dosing ml/min Est GFR ( Amer) Est GFR (Non-Af Amer) BUN/Creatinine Ratio (10-20) Glucose (70-99) mg/dl POC Glucose (70-99) Calcium (8.5-10.1) mg/dl Magnesium (1.8-2.4) mg/dl Total Bilirubin (0.2-1) mg/dl AST (15-37) U/L ALT (12-78) U/L Alkaline Phosphatase (45-117) U/L Troponin I (0-0.045) ng/ml Total Protein (6.4-8.2) gm/dl Albumin (3.4-5.0) gm/dl Globulin (2.5-4.0) gm/dl Albumin/Globulin Ratio (0.9-2) Blood Type O Positive Antibody Screen NEGATIVE
[2018-10-09] MEDS ORDERED: LIDOCAINE HCL 2% 2 ML VIAL/AMP(20MG/ML) INFIL ONE (10:07)
[2018-10-09] MEDS ORDERED: PROPOFOL IV EMULSION 10 MG/ML 20 ML VIAL IV ONE (10:07)
--- NOTE | 2018-10-09 10:17 | Anesthesiology Consultation ---
Date of Service October 09, 2018 Assessment & Plan (1) Encounter for pre-operative examination: Chart Review Chart Review: Acceptable Risk for Surgery and Patient NOT seen in Pre Admission Testing Consults Requested none ASA ASA3 Proposed Anesthesia Anesthesia Type: MAC Risk / Benefits Reviewed With: PT / POA / Parent / Guardian, Accepts Plan and Informed Consent Obtained NPO Date Last Intake of Fluids: 10/09/18 Time Last Intake of Fluids: 08:00 Date Last Intake of Solids: 10/08/18 History Surgery Operation Date: 10/09/18 09:00 Proposed Procedures p Esophagogastroduodenoscopy Dr Willie Tapia Height/Weight Height: 5 ft 10 in Weight: 113.3 kg Allergies Allergy/AdvReac Type Severity Reaction Status Date / Time No Known Allergies Allergy Unverified 10/08/18 15:40 Medications Home Medications Medication Instructions Recorded Confirmed Last Taken acetaminophen [Tylenol Extra 500 mg PO AMPM 10/08/18 10/08/18 Unknown Strength] amlodipine [Norvasc] 10 mg PO DAILY 10/08/18 10/08/18 Unknown aspirin [Aspir-Low] 81 mg PO DAILY 10/08/18 10/08/18 Unknown atorvastatin [Lipitor] 40 mg PO DAILY 10/08/18 10/08/18 Unknown cyanocobalamin (vitamin B-12) 1,000 mcg PO DAILY 10/08/18 10/08/18 Unknown [Vitamin B-12] hydralazine 25 mg PO BID 10/08/18 10/08/18 Unknown indapamide 2.5 mg PO DAILY 10/08/18 10/08/18 Unknown metformin [Glucophage XR] 500 mg PO DAILY 10/08/18 10/08/18 Unknown metoprolol succinate [Toprol XL] 200 mg PO DAILY 10/08/18 10/08/18 Unknown propylene glycol [Systane Balance] 1 drp OPHTHALMIC (EYE) Q6H PRN 10/08/1810/08 Unknown quinapril [Accupril] 40 mg PO DAILY 10/08/18 10/08/18 Unknown vit A,C and [id number]-lhbhmixq 1 tab PO DAILY 10/08/18 10/08/18 Unknown [Ocuvite with Lutein] Active Medications Generic Name Dose Route Start Last Admin Trade Name Freq PRN Reason Stop Dose Admin Amlodipine Besylate 2.5 mg 10/09/18 09:00 10/09/18 08:25 Norvasc PO 11/08/18 08:59 2.5 mg DAILY HUMBLE Administration Pantoprazole Sodium 40 mg/ 100 mls @ 20 mls/hr 10/08/18 16:15 10/09/18 08:18 Dextrose IV 11/07/18 16:14 8 mg/hr Q5H HUMBLE 20 mls/hr Administration 8 MG/HR Potassium Chloride/Sodium Chloride 20 meq in 1,000 mls @ 80 mls/hr 10/09/18 03 :45 10/09/18 04:16 Normal Saline W/20 Meq Kcl IV 11/08/18 03:44 80 mls/hr .[id number] HUMBLE Administration Insulin Aspart 0 units 10/08/18 21:00 10/09/18 08:21 Novolog Flexpen SC 11/07/18 20:59 Not Given ACHS HUMBLE Metoprolol Succinate 12.5 mg 10/09/18 03:40 10/09/18 04:20 Toprol Xl PO 11/08/18 03:39 12.5 mg QAM HUMBLE Administration Past Medical History Medical History Alcohol use (Chronic) Lumbar spinal stenosis (Chronic) Dyslipidemia (Chronic) Prediabetes (Chronic) HTN (hypertension) (Chronic) Hx of spinal stenosis (Chronic) Umbilical hernia (Chronic) Past Family History Family History Mother CHF (congestive heart failure) Past Surgical History Surgical History History of tonsillectomy and adenoidectomy (Chronic) History of appendectomy (Chronic) Social History Smoking Status: Former smoker Do You Dip or Chew Tobacco: No Smoking End Date: 30 years ago Hx Alcohol Use: Yes Alcohol type: beer alcohol intake frequency: 3 or more drinks per day Hx Substance Use: No Physical Exam Vital Signs Last Vital Signs Temp 36.7 C 10/09/18 07:22 Pulse 63 10/09/18 07:22 Resp 16 10/09/18 07:22 BP 102/56 L 10/09/18 07:22 Pulse Ox 98 10/09/18 07:22 Testing Laboratory Results 10/09/18 04:11 10/09/18 04:11 Blood Type O Positive 10/08/18 16:21 Antibody Screen NEGATIVE 10/08/18 16:21 PT 11.1 Seconds (9.0-12.0) 10/08/18 16:25 INR 1.1 (0.9-1.1) 10/08/18 16:25 APTT 24.5 Seconds (21.0-31.0) 10/08/18 16:25 10/09/18 10/08/18 07:19 22:12 POC Glucose 120 H 143 H
[2018-10-09] MEDS ORDERED: ePHEDrine sulfate 50 MG/ML AMP IV PRN (10:21)
[2018-10-09] MEDS ORDERED: ATROPINE SULFATE 0.1 MG/ML 10ML SYR IV PRN (10:21)
--- NOTE | 2018-10-09 10:55 | GI REPORT ---
Patient Name: Severino Green Procedure Date: 10/09/2018 10:24 AM Date of : 1940 Admit Type: Inpatient Age: 77 Gender: Male Attending MD: Kun Tapia DO Procedure: Upper GI endoscopy Providers: Kun Tapia DO Referring MD: Jose A Mejia Do Indications: Iron deficiency anemia secondary to chronic blood loss Medicines: Monitored Anesthesia Care Complications: No immediate complications. Estimated blood loss: Minimal. Estimated Blood Loss: Estimated blood loss was minimal. Procedure: Pre-Anesthesia Assessment: - Prior to the procedure, a History and Physical was performed, and patient medications, allergies and sensitivities were reviewed. The patient's tolerance of previous anesthesia was reviewed. - Patient identification and proposed procedure were verified prior to the procedure by the physician, the nurse and the c2 tactical analysis technician. The procedure was verified in the procedure room. - Pre-procedure physical examination revealed no contraindications to sedation. - ASA Grade Assessment: III - A patient with severe systemic disease. - After reviewing the risks and benefits, the patient was deemed in satisfactory condition to undergo the procedure. - The anesthesia plan was to use monitored anesthesia care (MAC). - Immediately prior to administration of medications, the patient was re-assessed for adequacy to receive sedatives. - The heart rate, respiratory rate, oxygen saturations, blood pressure, adequacy of pulmonary ventilation, and response to care were monitored throughout the procedure. - The physical status of the patient was re-assessed after the procedure. After obtaining informed consent, the endoscope was passed under direct vision. Throughout the procedure, the patient's blood pressure, pulse, and oxygen saturations were monitored continuously. The Endoscope was introduced through the mouth, and advanced to the third part of duodenum. The upper GI endoscopy was accomplished without difficulty. The patient tolerated the procedure well. Findings: The examined esophagus was normal. A non-obstructing Schatzki ring was found at the gastroesophageal junction. The Z-line was regular and was found 38 cm from the incisors. Diffuse mild inflammation characterized by erythema and granularity was found in the entire examined stomach. Biopsies were taken with a cold forceps for histology. Estimated blood loss was minimal. Patchy mildly congested mucosa without active bleeding and with no stigmata of bleeding was found in the duodenal bulb. Biopsies were taken with a cold forceps for histology. Estimated blood loss was minimal. The second portion of the duodenum and third portion of the duodenum were normal. Impression: - Normal esophagus. - Non-obstructing Schatzki's ring - Z-line regular, 38 cm from the incisors. - Diffuse gastritis. Biopsied. - Congested duodenal mucosa. Biopsied. - Normal second portion of the duodenum and third portion of the duodenum. Recommendation: - Return patient to hospital [facility] for ongoing care. - No obviious cause of anemia seen today. - Advance diet as tolerated today. - Use Prilosec (omeprazole) 20 mg PO daily. - Perform a colonoscopy at appointment to be scheduled. Kun Tapia D.O. Kun Tapia, 10/09/2018 10:54:59 AM This report has been signed electronically. Note Initiated On: 10/09/2018 10:24 AM Number of Addenda: 0 I attest to the content of the Intraoperative Record and orders documented therein, exceptions below {[id number]}
--- NOTE | 2018-10-09 11:09 | Anesthesiology Progress Note ---
Date of Service October 09, 2018 Anesthesia Post Procedure Vital Signs Vital Signs: Temp Pulse Pulse Resp BP BP Pulse Ox 10/09/18 10:51 78 18 103/43 L 96 10/09/18 10:15 36.8 C 69 20 134/49 L 97 10/09/18 07:22 36.7 C 63 16 102/56 L 98 10/09/18 04:23 36.6 C 64 18 172/72 H 95 10/09/18 02:01 60 10/08/18 22:45 36.8 C 58 L 18 113/61 96 10/08/18 19:55 36.7 C 60 18 120/62 10/08/18 18:34 20 97 10/08/18 18:18 66 20 119/50 L 97 10/08/18 18:01 14 99 10/08/18 18:00 26 H 119/50 L 98 10/08/18 17:50 22 97 10/08/18 17:40 58 L 16 99 10/08/18 17:30 63 21 98 10/08/18 17:20 67 16 98 10/08/18 17:10 60 19 99 10/08/18 17:01 58 L 13 115/63 100 10/08/18 17:00 63 17 81 L 10/08/18 16:58 73 19 99 10/08/18 16:50 68 16 99 10/08/18 16:40 58 L 16 100 10/08/18 16:30 61 15 99 10/08/18 16:20 62 14 98 10/08/18 16:11 60 15 99 10/08/18 16:07 99 10/08/18 16:03 57 L 16 115/45 L 98 10/08/18 16:02 59 L 15 115/45 L 99 10/08/18 15:40 36.6 C 63 20 92/53 L 98 Notes Mental Status: alert / awake / arousable Patient Amnestic to Procedure: Yes Nausea / Vomiting: adequately controlled Pain: adequately controlled Airway Patency, RR, SpO2: stable & adequate BP & HR: stable & adequate Hydration State: stable & adequate Anesthetic Complications: no major complications apparent and Pt Satisfied with anesthetic care
[2018-10-09] MEDS ORDERED: LAVAGE SOLUTION 4000ML PO SCH (12:30)
--- NOTE | 2018-10-09 12:35 | Procedure Note ---
Procedure Note Date of Service October 09, 2018 S/P EGD w/o source of GIB identified. Can have clear liquids today. Start Go- Lytely. NPO after midnight. Colonoscopy 10/10/18
--- NOTE | 2018-10-09 13:05 | Hospitalist Progress Note ---
Date of Service October 09, 2018 Assessment & Plan (1) GI bleed: (2) Anemia: -Patient sent to ED by PCP for evaluation of lightheadedness and black stools -Patient reports 1 week of black diarrhea, initially with some bright red blood ; over the past day, stools have been more formed and brown -In the ED, Hgb 9.2 (unknown baseline); Hb 8.2 today, BP borderline low, systolics 110s -PPI drip -GI consult -Patient had been taking naproxen regularly however stopped 1 month ago -History of chronic alcohol use, however noted normal LFTs, low suspicion for varices -No history of prior EGD or colonoscopy (3) HTN (hypertension): -Hold amlodipine, quinapril, hydralazine, indapamide, metoprolol for now due to borderline low BPs (4) Prediabetes: -Hgb A1c 5.5 02/2018 -Hold metformin and utilize NovoLog per protocol while hospitalized (5) Dyslipidemia: -Hold statin for now (6) Alcohol use: -Patient reports 6-7 beers/day -No history of withdrawal in the past, and no alcohol use in the past 5 days -will place on alcohol withdrawal "at risk" protocol (7) DVT prophylaxis: -SCDs due to GI bleeding Subjective 77-year-old male who was sent to the ED by his PCP for evaluation of black stools and lightheadedness. Patient reports he developed black diarrhea about 6 days ago. Initially, he reports some bright red blood. Over the past day, stools have become formed and more brown. He reports some mild lightheadedness but denies any dizziness or syncopal events. No abdominal pain, nausea, vomiting. He denies chest pain or shortness of breath. No fevers or chills. He denies any urinary symptoms. Patient reports he had been taking naproxen somewhat regularly however stopped 1 month ago and now takes Tylenol twice daily for pain. He takes a baby aspirin, no other antiplatelets or anticoagulants. In the ED, hemoglobin 9.2 (unknown baseline), BP borderline low with systolic blood pressures 110s. Patient was given IVF and started on PPI drip. ROS-No Headache, No Visual Changes, No Fever, No Chills, No Neck Pain or Stiffness, No Chest Pain, No Palpitations, No SOB, No GAUTHIER, No Cough, No Sputum, No Wheezing, No Abdominal Pain, No Diarrhea, No Hematemesis, No Hemoptysis, No Unexpected Weight Loss, No Flank pain, + Melena, + Hematochezia, No Frequency, No Urgency, No Burning, No Hematuria, No Rashes, No Diaphoresis. Appetite is Normal Physical Exam Gen-AAO x 3, NAD, Afebrile, obese Head-NCAT, EOMI, PERRLA, Anicteric Sclera, No Posterior Pharyngeal Erythema Neck-Supple, No JVD, No Thyromegaly, No Masses, No LAD, No Bruits Lungs-Clear to Auscultation Bilaterally, No Rales, No Rhonchi, No Wheezing, No Crepitus Chest-No S4, +S1, +S2, No S3, No Murmurs, No Rubs, No Gallops, No Ectopy Abdomen-Soft, Obese, Bowel Sounds Present, Non Tender, Non Distended, No Hepatomegaly, No Splenomegaly, No Palpable Masses, No Rebound, No Rigidity, No Guarding Musculoskeletal-Full Range of Motion Bilaterally, No CVAT Extremities-No Cyanosis, No Clubbing, No Edema Nuero-Cranial Nerves II-XII grossly intact, Motor WNL, DTRs WNL, Strength WNL, No Focal Psych-Normal Mood Physical Exam 2 Vital Signs (Past 24 Hours): Last Vital Signs Temp 36.8 C 10/09/18 10:15 Pulse 56 L 10/09/18 12:06 Resp 18 10/09/18 11:24 BP 113/63 10/09/18 11:24 Pulse Ox 98 10/09/18 11:24 Results & Data Laboratory Results 10/09/18 10/09/18 10/09/18 Range/Units 11:46 07:19 04:11 WBC (4.8-10.8) K/uL RBC (4.7-6.1) M/uL Hgb (14.0-18.0) g/dL Hct (42-52) % MCV (80-100) fL MCH (25-34) pg MCHC (32-36) g/dL RDW Std Deviation (36.4-46.3) fL RDW Coeff of Steven (11.5-14.5) % Plt Count (130-400) K/uL MPV (7.4-10.4) fL Immature Gran % (Auto) % Neut % (Auto) % Lymph % (Auto) % Gladwin % (Auto) % Eos % (Auto) % Baso % (Auto) % Immature Gran # (Auto) (0.00-0.02) K/uL Neut # (Auto) (1.4-6.5) K/uL Lymph # (Auto) (1.2-3.4) K/uL Gladwin # (Auto) (0.11-0.59) K/uL Eos # (Auto) (0-0.5) K/uL Baso # (Auto) (0-0.2) K/uL RBC Morphology PT (9.0-12.0) Seconds INR (0.9-1.1) APTT (21.0-31.0) Seconds PTT Ratio Sodium 134 L (136-145) mmol/L Potassium 3.0 L (3.5-5.1) mmol/L Chloride 102 (98-107) mmol/L Carbon Dioxide 23 (21-32) mmol/L Anion Gap 9.0 (3-11) BUN 19 H (7-18) mg/dl Creatinine 0.98 (0.6-1.4) mg/dl Est Cr Clr Drug Dosing 77.0 ml/min Est GFR ( Amer) 84.6 Est GFR (Non-Af Amer) 73.0 BUN/Creatinine Ratio 19.5 (10-20) Glucose 106 H (70-99) mg/dl POC Glucose 120 H 120 H (70-99) Calcium 8.1 L (8.5-10.1) mg/dl Magnesium 2.1 (1.8-2.4) mg/dl Total Bilirubin (0.2-1) mg/dl AST (15-37) U/L ALT (12-78) U/L Alkaline Phosphatase (45-117) U/L Troponin I (0-0.045) ng/ml Total Protein (6.4-8.2) gm/dl Albumin (3.4-5.0) gm/dl Globulin (2.5-4.0) gm/dl Albumin/Globulin Ratio (0.9-2) Blood Type Antibody Screen 10/09/18 10/08/18 10/08/18 Range/Units 04:11 22:18 22:12 WBC 8.20 (4.8-10.8) K/uL RBC 2.42 L (4.7-6.1) M/uL Hgb 8.2 L 8.2 L (14.0-18.0) g/dL Hct 24.0 L 23.8 L (42-52) % MCV 99.2 (80-100) fL MCH 33.9 (25-34) pg MCHC 34.2 (32-36) g/dL RDW Std Deviation 50.1 H (36.4-46.3) fL RDW Coeff of Steven 14.0 (11.5-14.5) % Plt Count 247 (130-400) K/uL MPV 10.2 (7.4-10.4) fL Immature Gran % (Auto) 0.2 % Neut % (Auto) 59.1 % Lymph % (Auto) 29.6 % Gladwin % (Auto) 8.9 % Eos % (Auto) 1.8 % Baso % (Auto) 0.4 % Immature Gran # (Auto) 0.02 (0.00-0.02) K/uL Neut # (Auto) 4.84 (1.4-6.5) K/uL Lymph # (Auto) 2.43 (1.2-3.4) K/uL Gladwin # (Auto) 0.73 H (0.11-0.59) K/uL Eos # (Auto) 0.15 (0-0.5) K/uL Baso # (Auto) 0.03 (0-0.2) K/uL RBC Morphology Unremarkable PT (9.0-12.0) Seconds INR (0.9-1.1) APTT (21.0-31.0) Seconds PTT Ratio Sodium (136-145) mmol/L Potassium (3.5-5.1) mmol/L Chloride (98-107) mmol/L Carbon Dioxide (21-32) mmol/L Anion Gap (3-11) BUN (7-18) mg/dl Creatinine (0.6-1.4) mg/dl Est Cr Clr Drug Dosing ml/min Est GFR ( Amer) Est GFR (Non-Af Amer) BUN/Creatinine Ratio (10-20) Glucose (70-99) mg/dl POC Glucose 143 H (70-99) Calcium (8.5-10.1) mg/dl Magnesium (1.8-2.4) mg/dl Total Bilirubin (0.2-1) mg/dl AST (15-37) U/L ALT (12-78) U/L Alkaline Phosphatase (45-117) U/L Troponin I (0-0.045) ng/ml Total Protein (6.4-8.2) gm/dl Albumin (3.4-5.0) gm/dl Globulin (2.5-4.0) gm/dl Albumin/Globulin Ratio (0.9-2) Blood Type Antibody Screen 10/08/18 10/08/18 10/08/18 Range/Units 16:25 16:25 16:25 WBC (4.8-10.8) K/uL RBC (4.7-6.1) M/uL Hgb (14.0-18.0) g/dL Hct (42-52) % MCV (80-100) fL MCH (25-34) pg MCHC (32-36) g/dL RDW Std Deviation (36.4-46.3) fL RDW Coeff of Steven (11.5-14.5) % Plt Count (130-400) K/uL MPV (7.4-10.4) fL Immature Gran % (Auto) % Neut % (Auto) % Lymph % (Auto) % Gladwin % (Auto) % Eos % (Auto) % Baso % (Auto) % Immature Gran # (Auto) (0.00-0.02) K/uL Neut # (Auto) (1.4-6.5) K/uL Lymph # (Auto) (1.2-3.4) K/uL Gladwin # (Auto) (0.11-0.59) K/uL Eos # (Auto) (0-0.5) K/uL Baso # (Auto) (0-0.2) K/uL RBC Morphology PT 11.1 (9.0-12.0) Seconds INR 1.1 (0.9-1.1) APTT 24.5 (21.0-31.0) Seconds PTT Ratio 0.9 Sodium 132 L (136-145) mmol/L Potassium 3.1 L (3.5-5.1) mmol/L Chloride 96 L (98-107) mmol/L Carbon Dioxide 25 (21-32) mmol/L Anion Gap 11.0 (3-11) BUN 25 H (7-18) mg/dl Creatinine 1.23 (0.6-1.4) mg/dl Est Cr Clr Drug Dosing 62.1 ml/min Est GFR ( Amer) 64.3 Est GFR (Non-Af Amer) 55.5 BUN/Creatinine Ratio 20.1 H (10-20) Glucose 114 H (70-99) mg/dl POC Glucose (70-99) Calcium 9.0 (8.5-10.1) mg/dl Magnesium 1.6 L (1.8-2.4) mg/dl Total Bilirubin 0.4 (0.2-1) mg/dl AST 24 (15-37) U/L ALT 34 (12-78) U/L Alkaline Phosphatase 78 (45-117) U/L Troponin I < 0.015 (0-0.045) ng/ml Total Protein 7.2 (6.4-8.2) gm/dl Albumin 3.6 (3.4-5.0) gm/dl Globulin 3.6 (2.5-4.0) gm/dl Albumin/Globulin Ratio 1.0 (0.9-2) Blood Type Antibody Screen 10/08/18 10/08/18 Range/Units 16:25 16:21 WBC 9.47 (4.8-10.8) K/uL RBC 2.71 L (4.7-6.1) M/uL Hgb 9.2 L (14.0-18.0) g/dL Hct 27.0 L (42-52) % MCV 99.6 (80-100) fL MCH 33.9 (25-34) pg MCHC 34.1 (32-36) g/dL RDW Std Deviation 49.5 H (36.4-46.3) fL RDW Coeff of Steven 13.9 (11.5-14.5) % Plt Count 286 (130-400) K/uL MPV 10.4 (7.4-10.4) fL Immature Gran % (Auto) 0.3 % Neut % (Auto) 71.7 % Lymph % (Auto) 19.6 % Gladwin % (Auto) 7.2 % Eos % (Auto) 1.0 % Baso % (Auto) 0.2 % Immature Gran # (Auto) 0.03 H (0.00-0.02) K/uL Neut # (Auto) 6.79 H (1.4-6.5) K/uL Lymph # (Auto) 1.86 (1.2-3.4) K/uL Gladwin # (Auto) 0.68 H (0.11-0.59) K/uL Eos # (Auto) 0.09 (0-0.5) K/uL Baso # (Auto) 0.02 (0-0.2) K/uL RBC Morphology PT (9.0-12.0) Seconds INR (0.9-1.1) APTT (21.0-31.0) Seconds PTT Ratio Sodium (136-145) mmol/L Potassium (3.5-5.1) mmol/L Chloride (98-107) mmol/L Carbon Dioxide (21-32) mmol/L Anion Gap (3-11) BUN (7-18) mg/dl Creatinine (0.6-1.4) mg/dl Est Cr Clr Drug Dosing ml/min Est GFR ( Amer) Est GFR (Non-Af Amer) BUN/Creatinine Ratio (10-20) Glucose (70-99) mg/dl POC Glucose (70-99) Calcium (8.5-10.1) mg/dl Magnesium (1.8-2.4) mg/dl Total Bilirubin (0.2-1) mg/dl AST (15-37) U/L ALT (12-78) U/L Alkaline Phosphatase (45-117) U/L Troponin I (0-0.045) ng/ml Total Protein (6.4-8.2) gm/dl Albumin (3.4-5.0) gm/dl Globulin (2.5-4.0) gm/dl Albumin/Globulin Ratio (0.9-2) Blood Type O Positive Antibody Screen NEGATIVE
[2018-10-09] MEDS ORDERED: ACETAMINOPHEN 500 MG TAB PO SCH (15:45)
[2018-10-09] MEDS ORDERED: METOPROLOL SUCC 50MG EXT REL TAB PO SCH (15:45)
[2018-10-09] MEDS: POTASSIUM CHLORIDE 20 MEQ TABCR PO SCH (17:17)
[2018-10-09] MEDS: ENALAPRIL MALEATE 10 MG TAB PO SCH ×3 (18:34→20:03)
[2018-10-09] MEDS: INDAPAMIDE 1.25 MG TAB PO SCH ×3 (18:34→20:06)
[2018-10-09] MEDS: CEROVITE ADV FORMULA TAB PO SCH ×2 (18:35→18:50)
[2018-10-09] MEDS ORDERED: ATORVASTATIN 40 MG TAB PO SCH (21:00)
[2018-10-10] MEDS: PANTOprazole 40 MG in DEXTROSE 5% 100 ML IV SCH ×3 (03:30→14:45)
[2018-10-10] MEDS: NSS + 20MEQ KCL 20 MEQ/1,000 ML BAG IV SCH (05:03)
[2018-10-10 06:38] LABS: Hemoglobin 7.7 g/dL (14.0-18.0); Mean Corpuscular Hgb Conc 33.5 g/dL (32-36); Mean Corpuscular Volume 100.4 fL (80-100); Platelet Count 211 K/uL (130-400); RDW Coefficient of Variation 14.2 % (11.5-14.5); RDW Standard Deviation 51.9 fL (36.4-46.3); Red Blood Count 2.29 M/uL (4.7-6.1); White Blood Count 6.62 K/uL (4.8-10.8)
[2018-10-10 06:57] LABS: Creatinine Clr Calc Pharmacy 85.4 ml/min; Est GFR (African American) 94.3; Est GFR (Non-African American) 81.3; Potassium 3.8 mmol/L (3.5-5.1)
[2018-10-10 07:03] LABS: Albumin Globulin Ratio 1.1 (0.9-2); Bilirubin,Total 0.5 mg/dl (0.2-1); Globulin 2.8 gm/dl (2.5-4.0); Total Protein 5.8 gm/dl (6.4-8.2)
[2018-10-10] MEDS: INDAPAMIDE 1.25 MG TAB PO SCH (08:34)
[2018-10-10] MEDS: AMLODIPINE BESYLATE 5 MG TAB PO SCH (08:35)
[2018-10-10] MEDS: METOPROLOL SUCC 25MG EXT REL TAB PO SCH (08:35)
[2018-10-10] MEDS: INSULIN ASPART 100 UNITS/ML 3 ML PEN SC SCH ×2 (08:45→13:57)
--- NOTE | 2018-10-10 08:52 | Gastroenterology Progress Note ---
Date of Service October 10, 2018 Assessment & Plan (1) Anemia: 77 year old male admitted with anemia, HGB 8.2 and resolved melena. He was on daily ASA and using BID aleve for back pain. EGD negative, is NPO for colon today. - NPO - Colonosocpy today - Transfuse per primary service Please see previous notes for additional recommendations. Thank you for allowing us to participate in the care of this patient. Please call with any acute changes, questions or concerns. Please see addendum below with additional recommendation from my supervising physician. Supervising Physician Co-Signing Physician Notes I saw and evaluated the patient. We are planning to do a colonoscopy today given a history of anemia. We have discussed the risks together to include bleeding, infection, perforation, pain and missed colonic polyps. Subjective Pt was seen and evaluated, chart reviewed. Is NPO for Colonoscopy. Tolerated prep. No bleeding with prep. Offers no complaints. Wants to go home after procedure. No fever, chills, CP, SOB. Constitutional: no fever, no chills, no fatigue and no weakness Respiratory: no cough and no dyspnea Cardiovascular: no chest pain, no chest pain at rest and no dyspnea Gastrointestinal: no abdominal pain, no belching, no early satiety, no heartburn , no coffee ground emesis, no hematemesis, no pain with swallowing, no dysphagia , no cramping, no blood in stools (now resolved) and no melena (now resolved) Physical Exam 2 Vital Signs (Past 24 Hours): Last Vital Signs Temp 36.5 C 10/10/18 07:16 Pulse 84 10/10/18 07:35 Resp 18 10/10/18 07:16 BP 160/72 H 10/10/18 07:16 Pulse Ox 97 10/10/18 07:16 Constitutional: well nourished, cooperative, comfortable and + overweight; no acute distress Respiratory: normal respiratory effort, lungs clear to auscultation Cardiovascular: RRR, no murmur, no edema Gastrointestinal (Abdomen): normal bowel sounds, soft, nontender, no hepatosplenomegaly Results & Data Laboratory Results 10/10/18 10/10/18 10/10/18 Range/Units 06:19 06:13 06:13 WBC 6.62 (4.8-10.8) K/uL RBC 2.29 L (4.7-6.1) M/uL Hgb 7.7 L (14.0-18.0) g/dL Hct 23.0 L (42-52) % MCV 100.4 H (80-100) fL MCH 33.6 (25-34) pg MCHC 33.5 (32-36) g/dL RDW Std Deviation 51.9 H (36.4-46.3) fL RDW Coeff of Steven 14.2 (11.5-14.5) % Plt Count 211 (130-400) K/uL MPV 10.0 (7.4-10.4) fL Sodium 136 (136-145) mmol/L Potassium 3.8 D (3.5-5.1) mmol/L Chloride 104 (98-107) mmol/L Carbon Dioxide 26 (21-32) mmol/L Anion Gap 6.0 (3-11) BUN 8 D (7-18) mg/dl Creatinine 0.89 (0.6-1.4) mg/dl Est Cr Clr Drug Dosing 85.4 ml/min Est GFR ( Amer) 94.3 Est GFR (Non-Af Amer) 81.3 BUN/Creatinine Ratio 9.0 L (10-20) Glucose 103 H (70-99) mg/dl POC Glucose 113 H (70-99) Calcium 8.0 L (8.5-10.1) mg/dl Total Bilirubin 0.5 (0.2-1) mg/dl AST 22 (15-37) U/L ALT 29 (12-78) U/L Alkaline Phosphatase 69 (45-117) U/L Total Protein 5.8 L (6.4-8.2) gm/dl Albumin 3.0 L (3.4-5.0) gm/dl Globulin 2.8 (2.5-4.0) gm/dl Albumin/Globulin Ratio 1.1 (0.9-2) 10/10/18 10/09/18 10/09/18 Range/Units 00:26 20:16 16:29 WBC (4.8-10.8) K/uL RBC (4.7-6.1) M/uL Hgb (14.0-18.0) g/dL Hct (42-52) % MCV (80-100) fL MCH (25-34) pg MCHC (32-36) g/dL RDW Std Deviation (36.4-46.3) fL RDW Coeff of Steven (11.5-14.5) % Plt Count (130-400) K/uL MPV (7.4-10.4) fL Sodium (136-145) mmol/L Potassium (3.5-5.1) mmol/L Chloride (98-107) mmol/L Carbon Dioxide (21-32) mmol/L Anion Gap (3-11) BUN (7-18) mg/dl Creatinine (0.6-1.4) mg/dl Est Cr Clr Drug Dosing ml/min Est GFR ( Amer) Est GFR (Non-Af Amer) BUN/Creatinine Ratio (10-20) Glucose (70-99) mg/dl POC Glucose 113 H 124 H 116 H (70-99) Calcium (8.5-10.1) mg/dl Total Bilirubin (0.2-1) mg/dl AST (15-37) U/L ALT (12-78) U/L Alkaline Phosphatase (45-117) U/L Total Protein (6.4-8.2) gm/dl Albumin (3.4-5.0) gm/dl Globulin (2.5-4.0) gm/dl Albumin/Globulin Ratio (0.9-2) 10/09/18 Range/Units 11:46 WBC (4.8-10.8) K/uL RBC (4.7-6.1) M/uL Hgb (14.0-18.0) g/dL Hct (42-52) % MCV (80-100) fL MCH (25-34) pg MCHC (32-36) g/dL RDW Std Deviation (36.4-46.3) fL RDW Coeff of Steven (11.5-14.5) % Plt Count (130-400) K/uL MPV (7.4-10.4) fL Sodium (136-145) mmol/L Potassium (3.5-5.1) mmol/L Chloride (98-107) mmol/L Carbon Dioxide (21-32) mmol/L Anion Gap (3-11) BUN (7-18) mg/dl Creatinine (0.6-1.4) mg/dl Est Cr Clr Drug Dosing ml/min Est GFR ( Amer) Est GFR (Non-Af Amer) BUN/Creatinine Ratio (10-20) Glucose (70-99) mg/dl POC Glucose 120 H (70-99) Calcium (8.5-10.1) mg/dl Total Bilirubin (0.2-1) mg/dl AST (15-37) U/L ALT (12-78) U/L Alkaline Phosphatase (45-117) U/L Total Protein (6.4-8.2) gm/dl Albumin (3.4-5.0) gm/dl Globulin (2.5-4.0) gm/dl Albumin/Globulin Ratio (0.9-2)
[2018-10-10] MEDS: ENALAPRIL MALEATE 10 MG TAB PO SCH (08:58)
[2018-10-10] MEDS ORDERED: CYANOCOBALAMIN 500 MCG TABLET (VITAMIN B-12) PO SCH (09:00)
--- NOTE | 2018-10-10 11:53 | Anesthesiology Consultation ---
Date of Service October 10, 2018 Assessment & Plan (1) Encounter for pre-operative examination: Chart Review Chart Review: Acceptable Risk for Surgery and Patient NOT seen in Pre Admission Testing Consults Requested none ASA ASA3 Proposed Anesthesia Anesthesia Type: MAC Risk / Benefits Reviewed With: PT / POA / Parent / Guardian, Accepts Plan and Informed Consent Obtained NPO Date Last Intake of Fluids: 10/09/18 Time Last Intake of Fluids: 08:00 Date Last Intake of Solids: 10/08/18 History Surgery Operation Date: 10/09/18 09:00 Proposed Procedures p Esophagogastroduodenoscopy Dr Willie Tapia Operation Date: 10/10/18 09:00 Proposed Procedures p Colonoscopy Dr Willie Tapia Height/Weight Height: 5 ft 10 in Weight: 114.9 kg Allergies Allergy/AdvReac Type Severity Reaction Status Date / Time No Known Allergies Allergy Unverified 10/08/18 15:40 Medications Home Medications Medication Instructions Recorded Confirmed Last Taken acetaminophen [Tylenol Extra 500 mg PO AMPM 10/08/18 10/08/18 Unknown Strength] amlodipine [Norvasc] 10 mg PO DAILY 10/08/18 10/08/18 Unknown aspirin [Aspir-Low] 81 mg PO DAILY 10/08/18 10/08/18 Unknown atorvastatin [Lipitor] 40 mg PO DAILY 10/08/18 10/08/18 Unknown cyanocobalamin (vitamin B-12) 1,000 mcg PO DAILY 10/08/18 10/08/18 Unknown [Vitamin B-12] hydralazine 25 mg PO BID 10/08/18 10/08/18 Unknown indapamide 2.5 mg PO DAILY 10/08/18 10/08/18 Unknown metformin [Glucophage XR] 500 mg PO DAILY 10/08/18 10/08/18 Unknown metoprolol succinate [Toprol XL] 200 mg PO DAILY 10/08/18 10/08/18 Unknown propylene glycol [Systane Balance] 1 drp OPHTHALMIC (EYE) Q6H PRN 10/08/1810/08 Unknown quinapril [Accupril] 40 mg PO DAILY 10/08/18 10/08/18 Unknown vit A,C and [id number] 1 tab PO DAILY 10/08/18 10/08/18 Unknown [Ocuvite with Lutein] Active Medications Generic Name Dose Route Start Last Admin Trade Name Alfreditoq PRN Reason Stop Dose Admin Amlodipine Besylate 2.5 mg 10/09/18 09:00 10/10/18 08:35 Norvasc PO 11/08/18 08:59 2.5 mg DAILY HUMBLE Administration Atorvastatin Calcium 40 mg 10/09/18 21:00 10/09/18 20:04 Lipitor PO 11/08/18 20:59 40 mg HS HUMBLE Administration Cyanocobalamin 1,000 mcg 10/10/18 09:00 10/10/18 08:37 Vitamin B-12 PO 11/09/18 08:59 1,000 mcg DAILY HUMBLE Administration Enalapril Maleate 40 mg 10/09/18 16:00 10/10/18 08:58 Vasotec PO 11/08/18 15:59 40 mg DAILY HUMBLE Administration Hydralazine HCl 25 mg 10/09/18 21:00 10/10/18 08:37 Apresoline PO 11/08/18 20:59 25 mg BID HUMBLE Administration Pantoprazole Sodium 40 mg/ 100 mls @ 20 mls/hr 10/08/18 16:15 10/10/18 08:54 Dextrose IV 11/07/18 16:14 8 mg/hr Q5H HUMBLE 20 mls/hr Administration 8 MG/HR Potassium Chloride/Sodium Chloride 20 meq in 1,000 mls @ 80 mls/hr 10/09/18 03 :45 10/10/18 05:03 Normal Saline W/20 Meq Kcl IV 11/08/18 03:44 80 mls/hr .[id number] HUMBLE Administration Indapamide 2.5 mg 10/09/18 15:45 10/10/18 08:34 Lozol PO 11/08/18 15:44 2.5 mg DAILY HUMBLE Administration Insulin Aspart 0 units 10/08/18 21:00 10/10/18 08:45 Novolog Flexpen SC 11/07/18 20:59 Not Given ACHS HUMBLE Metoprolol Succinate 12.5 mg 10/09/18 03:40 10/10/18 08:35 Toprol Xl PO 11/08/18 03:39 12.5 mg QAM HUMBLE Administration Multivitamins/Minerals 1 tab 10/09/18 16:00 10/09/18 18:50 Multivitamin W/ Minerals Tab PO 11/08/18 15:59 Not Given DAILY [facility]UMBLE Potassium Chloride 40 meq 10/09/18 17:00 10/09/18 17:17 Klor-Con M20 PO 11/08/18 16:59 40 meq [id number] HUMBLE Administration Past Medical History Medical History Alcohol use (Chronic) Lumbar spinal stenosis (Chronic) Dyslipidemia (Chronic) Prediabetes (Chronic) HTN (hypertension) (Chronic) Hx of spinal stenosis (Chronic) Umbilical hernia (Chronic) Past Family History Family History Mother CHF (congestive heart failure) Past Surgical History Surgical History History of tonsillectomy and adenoidectomy (Chronic) History of appendectomy (Chronic) Social History Smoking Status: Former smoker Do You Dip or Chew Tobacco: No Smoking End Date: 30 years ago Hx Alcohol Use: Yes Alcohol type: beer alcohol intake frequency: 3 or more drinks per day Hx Substance Use: No Physical Exam Vital Signs Last Vital Signs Temp 37 C 10/10/18 11:11 Pulse 76 10/10/18 11:11 Resp 18 10/10/18 11:11 BP 109/54 L 10/10/18 11:11 Pulse Ox 95 10/10/18 11:11 Constitutional + obese ENMT Mouth: no TMJ abnormality Thyromental Distance: > or= 3.5 Finger Breadths Mallampati Class: I Neck + thick neck Respiratory normal respiratory effort Cardiovascular Rate/Rhythm: regular rate and regular rhythm Heart Sounds: no murmur Neurologic moves all extremities Psychiatric Orientation: alert and oriented x 3 Testing Laboratory Results 10/10/18 06:13 10/10/18 06:13 Blood Type O Positive 10/08/18 16:21 Antibody Screen NEGATIVE 10/08/18 16:21 PT 11.1 Seconds (9.0-12.0) 10/08/18 16:25 INR 1.1 (0.9-1.1) 10/08/18 16:25 APTT 24.5 Seconds (21.0-31.0) 10/08/18 16:25 10/10/18 10/10/18 10/10/18 11:24 06:19 00:26 POC Glucose 113 H 113 H 113 H
[2018-10-10] MEDS ORDERED: PROPOFOL IV EMULSION 10 MG/ML 20 ML VIAL IV ONE ×2 (11:55→12:40)
[2018-10-10] MEDS ORDERED: LIDOCAINE HCL 2% 2 ML VIAL/AMP(20MG/ML) INFIL ONE (11:55)
[2018-10-10] MEDS ORDERED: ATROPINE SULFATE 0.1 MG/ML 10ML SYR IV PRN (11:59)
[2018-10-10] MEDS ORDERED: ePHEDrine sulfate 50 MG/ML AMP IV PRN (11:59)
--- NOTE | 2018-10-10 11:59 | History & Physical Bridge Note ---
Date of Service October 10, 2018 History & Physical Bridge Note I have examined the patient, reviewed the History & Physical and in the interval since the performance of the History & Physical I have noted the following changes of clinical significance: no changes noted
--- NOTE | 2018-10-10 12:44 | Discharge Summary ---
Date of Service October 10, 2018 Admission HPI Per Admitting Provider 77-year-old male who was sent to the ED by his PCP for evaluation of black stools and lightheadedness. Patient reports he developed black diarrhea about 6 days ago. Initially, he reports some bright red blood. Over the past day, stools have become formed and more brown. He reports some mild lightheadedness but denies any dizziness or syncopal events. No abdominal pain, nausea, vomiting. He denies chest pain or shortness of breath. No fevers or chills. He denies any urinary symptoms. Patient reports he had been taking naproxen somewhat regularly however stopped 1 month ago and now takes Tylenol twice daily for pain. He takes a baby aspirin, no other antiplatelets or anticoagulants. In the ED, hemoglobin 9.2 (unknown baseline), BP borderline low with systolic blood pressures 110s. Patient was given IVF and started on PPI drip. Admission Exam Per Admitting Provider Constitutional: WD/WN, vitals as above + obese Eyes: PERRL, conjunctivae normal, anicteric sclerae ENMT: external ear and nose normal, oropharynx normal Respiratory: normal respiratory effort, lungs clear to auscultation Cardiovascular: Rate/Rhythm: regular rate and regular rhythm Vessels: normal peripheral pulses Extremities: + edema (+1 BLLE) Gastrointestinal (Abdomen): Inspection/Auscultation: + abdomen distended and normal bowel sounds Percussion/Palpation: abdomen soft and + hernia ( umbilican); abdomen nontender and no hepatosplenomegaly Musculoskeletal: no cyanosis or clubbing, extremities motor strength 5/5 Skin: no rashes, warm and dry Neurologic: PERRL, EOMI, accommodation nl, no face palsy, no dysarthria Psychiatric: A+Ox3, euthymic affect Principal Diagnosis GI Bleed Blood Loss Anemia Alcohol abuse Lumbar stenosis HLD Obesity IFG HTN Discharge Exam ROS-No Headache, No Visual Changes, No Fever, No Chills, No Neck Pain or Stiffness, No Chest Pain, No Palpitations, No SOB, No GAUTHIER, No Cough, No Sputum, No Wheezing, No Abdominal Pain, No Diarrhea, No Hematemesis, No Hemoptysis, No Unexpected Weight Loss, No Flank pain, No Melena, No Hematochezia, No Frequency , No Urgency, No Burning, No Hematuria, No Rashes, No Diaphoresis. Appetite is Normal Physical Exam Gen-AAO x 3, NAD, Afebrile Head-NCAT, EOMI, PERRLA, Anicteric Sclera, No Posterior Pharyngeal Erythema Neck-Supple, No JVD, No Thyromegaly, No Masses, No LAD, No Bruits Lungs-Clear to Auscultation Bilaterally, No Rales, No Rhonchi, No Wheezing, No Crepitus Chest-No S4, +S1, +S2, No S3, No Murmurs, No Rubs, No Gallops, No Ectopy Abdomen-Soft, Bowel Sounds Present, Non Tender, Non Distended, No Hepatomegaly, No Splenomegaly, No Palpable Masses, No Rebound, No Rigidity, No Guarding Musculoskeletal-Full Range of Motion Bilaterally, No CVAT Extremities-No Cyanosis, No Clubbing, No Edema Nuero-Cranial Nerves II-XII grossly intact, Motor WNL, DTRs WNL, Strength WNL, No Focal Psych-Normal Mood Discharge Data Allergies Allergy/AdvReac Type Severity Reaction Status Date / Time No Known Allergies Allergy Unverified 10/08/18 15:40 Consultations 10/08/18 17:04 ED Decision to Admit Stat 10/08/18 19:54 Consult Gastroenterology Routine Current Diagnoses Anemia, unspecified (10/08/18) Hyperlipidemia, unspecified (10/08/18) Essential (primary) hypertension (10/08/18) Gastrointestinal hemorrhage, unspecified (10/08/18) Prediabetes (10/08/18) Encounter for other preprocedural examination (10/08/18) Other specified health status (10/08/18) Allergies No Known Allergies Allergy (Unverified 10/08/18 15:40) Height/Weight/Isolation Height 5 ft 10 in Weight 114.9 kg Chemistry 10/08/18 10/09/18 10/10/18 16:25 04:11 06:13 Sodium 132 L 134 L 136 Potassium 3.1 L 3.0 L 3.8 D Chloride 96 L 102 104 Carbon Dioxide 25 23 26 Anion Gap 11.0 9.0 6.0 BUN 25 H 19 H 8 D Creatinine 1.23 0.98 0.89 Glucose 114 H 106 H 103 H Procedures Performed Operation Date: 10/09/18 09:00 Actual Procedures p EGD Biopsy Cytology - Kun Tapia Operation Date: 10/10/18 09:00 <No data on this case meets the specified criteria> Colonoscopy c Dr Tapia-Result Pending Hospital Course (1) GI bleed: (2) Anemia: -Patient sent to ED by PCP for evaluation of lightheadedness and black stools -EGD 10/09 neg, Colonoscopy 10/10 pending, Hb 8.2 yesterday, 7.7 today -Patient reports 1 week of black diarrhea, initially with some bright red blood ; over the past day, stools have been more formed and brown -In the ED, Hgb 9.2 (unknown baseline); Hb 8.2. 7.7, BP borderline low, systolics 110s -Patient had been taking naproxen regularly however stopped 1 month ago -History of chronic alcohol use, however noted normal LFTs, low suspicion for varices -No history of prior EGD or colonoscopy (3) HTN (hypertension): -Hold amlodipine, quinapril, hydralazine, indapamide, metoprolol for now due to borderline low BPs (4) Prediabetes: -Hgb A1c 5.5 02/2018 -Hold metformin and utilize NovoLog per protocol while hospitalized (5) Dyslipidemia: -Hold statin for now (6) Alcohol use: -Patient reports 6-7 beers/day -No history of withdrawal in the past, and no alcohol use in the past 5 days (7) DVT prophylaxis: -SCDs due to GI bleeding Check Hb at 3, if declining will hold D/C f/u c Dr Tapia in Office, may need Pill Cam Total Time Total Time Spent Total Time Spent (In Minutes): 45 mins Total Time Includes: Examination of the Patient, Discharge Planning, Medication Reconciliation and Communication With Other Providers Discharge Plan Discharge Items Patient Disposition: Home - Self-Care Reason For Visit: GI BLEED Discharge Diagnosis: GI Bleed Blood Loss Anemia Alcohol abuse Lumbar stenosis HLD Obesity IFG HTN Discharge Goals: Diagnostic testing Activity: Resume your previous activity Lifting: Gradually increase as tolerated Bathing: No limitations Sexual Activity: When tolerated Exercise/Sports: Gradually increase as tolerated Driving/Machine Use: No limitations Weightbearing: Left weightbearing and Right weightbearing Non-emergency contact: Primary Care Provider and Latex Dipper Call non-emergency contact if: you have any medication questions Follow-up/Referrals: Kun Tapia [Physician] - Jerry Medrano [Primary Care Provider] - Diet: Carb Consistent or DM2 and Heart Healthy Addtl Provider Instructions: H/H in office twice weekly for 1-2 weeks to monitor Hb Prescriptions: Continue atorvastatin [Lipitor] 40 mg tablet 40 mg PO DAILY RF: 0 cyanocobalamin (vitamin B-12) [Vitamin B-12] 1,000 mcg tablet 1,000 mcg PO DAILY RF: 0 aspirin [Aspir-Low] 81 mg Tablet,Delayed Release (Dr/Ec) 81 mg PO DAILY RF: 0 vit A,C and E-nyqrpz-dhjietfs [Ocuvite with Lutein] 1,000 unit-200 mg-60 unit- 2 mg Tablet 1 tab PO DAILY RF: 0 propylene glycol [Systane Balance] 0.6 % Drops 1 drp OPHTHALMIC (EYE) Q6H PRN (Reason: Dry Eyes) RF: 0 indapamide 2.5 mg tablet 2.5 mg PO DAILY RF: 0 hydralazine 25 mg Tablet 25 mg PO BID RF: 0 acetaminophen [Tylenol Extra Strength] 500 mg Tablet 500 mg PO AMPM RF: 0 quinapril [Accupril] 40 mg tablet 40 mg PO DAILY RF: 0 amlodipine [Norvasc] 10 mg tablet 10 mg PO DAILY RF: 0 metformin [Glucophage XR] 500 mg tablet extended release 24 hr 500 mg PO DAILY RF: 0 Stand-Alone Forms: [facility] Discharge Orders: Discharge Order (Routine); Ordered 10/10/18 Ordered By: Jose A Iqbal Admission Data Admit Date/Time: 10/08/18 17:51 Attending Provider: Jose A Iqbal Admit Provider: Mark Lugo Primary Care Provider: Jerry Medrano Other Providers: Mark Lugo ; Kun Tapia Service: Telemetry Other Interventions: Discharge Summary Assessment (RN) Last Done: 10/09/18 11:31
--- NOTE | 2018-10-10 12:45 | GI REPORT ---
Patient Name: Severino Green Procedure Date: 10/10/2018 11:57 AM Date of : 1940 Admit Type: Inpatient Age: 77 Gender: Male Attending MD: Kun Tapia DO Procedure: Colonoscopy Providers: Kun Tapia DO Referring MD: Jerry Medrano Indications: Melena Medicines: Monitored Anesthesia Care Complications: No immediate complications. Estimated blood loss: Minimal. Estimated Blood Loss: Estimated blood loss was minimal. Procedure: Pre-Anesthesia Assessment: - Prior to the procedure, a History and Physical was performed, and patient medications, allergies and sensitivities were reviewed. The patient's tolerance of previous anesthesia was reviewed. - Patient identification and proposed procedure were verified prior to the procedure by the physician, the nurse and the psychology technician. The procedure was verified in the procedure room. - Pre-procedure physical examination revealed no contraindications to sedation. - ASA Grade Assessment: III - A patient with severe systemic disease. - After reviewing the risks and benefits, the patient was deemed in satisfactory condition to undergo the procedure. - The anesthesia plan was to use monitored anesthesia care (MAC). - Immediately prior to administration of medications, the patient was re-assessed for adequacy to receive sedatives. - The heart rate, respiratory rate, oxygen saturations, blood pressure, adequacy of pulmonary ventilation, and response to care were monitored throughout the procedure. - The physical status of the patient was re-assessed after the procedure. After I obtained informed consent, the scope was passed under direct vision. Throughout the procedure, the patient's blood pressure, pulse, and oxygen saturations were monitored continuously. The Scope was introduced through the anus and advanced to the terminal ileum. The colonoscopy was performed without difficulty. The patient tolerated the procedure well. The quality of the bowel preparation was good. Findings: The perianal and digital rectal examinations were normal. Pertinent negatives include normal sphincter tone. The terminal ileum appeared normal. A 5 mm polyp was found in the cecum. The polyp was sessile. The polyp was removed with a cold snare. Resection and retrieval were complete. Estimated blood loss was minimal. A 18 mm polyp was found in the cecum. The polyp was sessile. The polyp was removed with a piecemeal technique using a hot snare at 20 hurley. Polyp resection was incomplete. The resected tissue was retrieved using a suction (via the working channel). Coagulation for destruction of remaining portion of lesion using argon plasma at 1 liter/minute and 20 hurley was successful. To prevent bleeding post-intervention, one hemostatic clip was successfully placed (MR conditional). There was no bleeding at the end of the procedure. Estimated blood loss was minimal. A 7 mm polyp was found in the descending colon. The polyp was sessile. The polyp was removed with a hot snare. Resection and retrieval were complete. Estimated blood loss was minimal. A 5 mm polyp was found in the rectum. The polyp was sessile. The polyp was removed with a cold snare. Resection and retrieval were complete. Estimated blood loss was minimal. Internal hemorrhoids were found during retroflexion. The hemorrhoids were mild. Multiple small and large-mouthed diverticula were found in the entire colon. The exam was otherwise without abnormality. Impression: - The examined portion of the ileum was normal. - One 5 mm polyp in the cecum, removed with a cold snare. Resected and retrieved. - One 18 mm polyp in the cecum, removed piecemeal using a hot snare. Incomplete resection. Resected tissue retrieved. Treated with argon plasma coagulation (APC). Clip (MR conditional) was placed. - One 7 mm polyp in the descending colon, removed with a hot snare. Resected and retrieved. - One 5 mm polyp in the rectum, removed with a cold snare. Resected and retrieved. - Internal hemorrhoids. - Moderate diverticulosis in the entire examined colon. - The examination was otherwise normal. Recommendation: - Return patient to hospital yu for ongoing care. - Melena likely related to right sided diverticulosis. - Await pathology results. - Repeat colonoscopy in 1 year for surveillance. - Use fiber, for example Citrucel, Fibercon, Konsyl or Metamucil. Kun Tapia D.O. Kun Tapia, 10/10/2018 12:44:38 PM This report has been signed electronically. Note Initiated On: 10/10/2018 11:57 AM Number of Addenda: 0 I attest to the content of the Intraoperative Record and orders documented therein, exceptions below {[id number]}
[2018-10-10] MEDS: CEROVITE ADV FORMULA TAB PO SCH (14:03)
[2018-10-10] MEDS: POTASSIUM CHLORIDE 20 MEQ TABCR PO SCH (14:03)
--- NOTE | 2018-10-10 16:35 | Anesthesiology Progress Note ---
Date of Service October 10, 2018 Anesthesia Post Procedure Vital Signs Vital Signs: Temp Pulse Pulse Resp BP BP Pulse Ox 10/10/18 14:30 36.5 C 69 18 160/72 H 131/72 98 10/10/18 13:34 36.5 C 69 18 131/72 98 10/10/18 13:15 92 H 18 148/66 H 97 10/10/18 12:57 72 18 129/59 L 98 10/10/18 12:42 70 18 137/73 98 10/10/18 11:49 36.6 C 78 18 132/60 96 10/10/18 11:11 37 C 76 18 109/54 L 95 10/10/18 07:35 84 10/10/18 07:16 36.5 C 85 18 160/72 H 97 10/10/18 04:30 36.4 C L 80 20 114/76 98 10/09/18 23:30 88 10/09/18 22:36 36.4 C L 81 16 116/68 95 10/09/18 18:57 36.5 C 67 18 169/69 H 100 Notes Mental Status: alert / awake / arousable Patient Amnestic to Procedure: Yes Nausea / Vomiting: adequately controlled Pain: adequately controlled Airway Patency, RR, SpO2: stable & adequate BP & HR: stable & adequate Hydration State: stable & adequate Anesthetic Complications: no major complications apparent and Pt Satisfied with anesthetic care
--- NOTE | 2018-10-11 09:58 | Coding Query ---
PRESENT ON ADMISSION QUERY To promote full compliance with coding requirements relating to pateint care, physician participation is requested in all cases of hood fitter uncertainty. Please assist us with the question(s) below: Please place an X within the parenthesis (x). The following diagnosis(es) listed in this patient's medical record require physician assistance to determine if they were present on admission (POA) or not. Please advise for each diagnosis whether it was present on admission, not present on admission, or if it was clinically undetermined. 1.ACUTE BLOOD LOSS ANEMIA (Documented on Discharge Summary) Present on Admission ( ) Present On Admission ( ) Not Present On Admission ( ) Clinically Undetermined Thank you Mckenzie Frias *Definition of the present on admission (POA)-Present on admission is defined as present at the time the order for inpatient admission occurs. Conditions that develop during an outpatient encounter prior to a written order for inpatient admission (including emergency department, observation, or outpatient surgery) are considered present on admission. MTDD
--- NOTE | 2018-10-11 10:05 | Coding Query ---
CODING QUERY To promote full compliance with coding requirements relating to patient care, provider participation is requested in all cases of braille coder uncertainty. Please assist us with the question(s) below: Coding Question(s): The Discharge Summary documents, regarding the EGD and Colonoscopy procedures, EGD 10/09 neg, Colonoscopy 10/10 pending. Please clarify below, in your clinical opinion, regarding the findings on the EGD and Colonoscopy. Regarding the EGD on 10/09/18: ( ) No Findings ( ) Findings including Diffuse Gastritis. Biopsied Regarding the Colonoscopy on 10/10/18: ( ) No Findings ( X) Findings including Moderate Diverticulosis in the entire examined colon , Bleeding Sessile Poly removed, Please refer to report from GI Physician's Response(s): Thank you Mckenzie Frias Principal Diagnosis: "�that condition established after study, to be chiefly responsible for occasioning the admission of the patient to the hospital for care." Co-Existing Principal Diagnosis: "�when two or more diagnoses equally meet the criteria for principal diagnosis as determined by the circumstances of admission , diagnostic work up, and/or therapy provided, and the Alphabetic Index, Tabular List, or another coding guideline does not provide sequencing direction , any one of the diagnoses may be sequenced first." "When the physician has documented what appears to be a current diagnosis in the body of the record, but has not included the diagnosis in the final diagnostic statement, the physician should be asked whether the diagnosis should be added." (Source [facility]oding [facility] 2 QTR90. p3-4) MTDD
== END 2018-10-10 15:58 | disposition home or self-care (01) | DRG 811 ==
LOC: ED 15:31 → 2W 17:51

== ENCOUNTER 2018-10-11 08:55 | Inpatient (IN) ==
[2018-10-11] MEDS ORDERED: SODIUM CHLORIDE 0.9% 250 ML IV PRN ×2 (09:33→13:21)
[2018-10-11] MEDS ORDERED: SODIUM CHLORIDE 0.9% 1000ML 1,000 ML IV SCH (09:45)
[2018-10-11] MEDS ORDERED: SODIUM CHLORIDE 0.9% 500 ML IV SCH (09:45)
[2018-10-11 10:02] LABS: Basophils # (auto) 0.03 K/uL (0-0.2); Basophils % (auto) 0.3 %; Eosinophils # (auto) 0.22 K/uL (0-0.5); Eosinophils % (auto) 2.3 %; Hematocrit (blood only) 21.8 % (42-52); Hemoglobin 7.1 g/dL (14.0-18.0); Immature Granulocytes # (auto) 0.03 K/uL (0.00-0.02); Immature Granulocytes % (auto) 0.3 %; Lymphocytes # (auto) 1.04 K/uL (1.2-3.4); Mean Corpuscular Hgb Conc 32.6 g/dL (32-36); Mean Corpuscular Volume 101.9 fL (80-100); Monocytes # (auto) 0.61 K/uL (0.11-0.59); Monocytes % (auto) 6.4 %; Neutrophils # (auto) 7.55 K/uL (1.4-6.5); Neutrophils % (auto) 79.7 %; Platelet Count 232 K/uL (130-400); RDW Coefficient of Variation 14.4 % (11.5-14.5); RDW Standard Deviation 53.2 fL (36.4-46.3); Red Blood Count 2.14 M/uL (4.7-6.1); White Blood Count 9.48 K/uL (4.8-10.8)
--- NOTE | 2018-10-11 10:09 | Gastrointestinal Consultation ---
Date of Consultation October 11, 2018 Assessment & Plan (1) Acute GI bleedin77 year old male re-admitted with symptomatic anemia HGB 6.8, rectal bleeding s/p EGD/Colon w/ polypectomy yesterday. DDX: post-polypectomy bleed vs diverticular bleed - Trend H&H - Monitor and document all GI output - Transfuse per primary service - Clear liquids - Start Golytely - If bleeding resolves with bowel prep no role for intervention. However, if bleeding persist despite bowel prep will plan for colonoscopy - Consult for admission Thank you for allowing us to participate in the care of this patient. Please call with any acute changes, questions or concerns. Please see addendum below with additional recommendation from my supervising physician. Present on Admission?: Yes Supervising Physician Co-Signing Physician Notes I saw and evaluated the patient. He underwent a colonoscopy yesterday for evaluation of melena. The examination was notable for several colonic polyps with a large polyp noted in the cecum. This was removed in a piecemeal fashion. We also found diffuse diverticulosis of the colon. He presented late this morning after he had an episode of hematochezia. This did occur again this afternoon. Physical examination No obvious distress, pleasant male, no abdominal tenderness noted Impression: Patient presenting with hematochezia after recent colonoscopy and complicated polypectomy. Given the clinical scenario I would favor a post polypectomy bleed. As the suspected culprit lesion was in the cecum I would recommend bowel preparation. If the patient discontinues bleeding then watchful waiting would be the best course of action. Should bleeding persist then we would certainly consider colonoscopy during the weekend. History of Present Illness Reason for Consultation: rectal bleeding Requesting Physician: Chaim Attending Physician: Chaim History of Present Illness 77 year old male with prediabetes, HTN, spinal stenosis who presents to the ED from home one day after discharge for rectal beelding. Pt was seen and evaluated , chart reviewed. Notes his bleeding is different than his prior episode. Notes in his typical state of health. This AM woke up w/ urge for BM. No stool - just BRB w/ clots. Notes he felt lightheaded, dizzy. Had two more BMs at home w/ bleeding and clots. No melena. No abd pain. No UGI symptoms. No coffee ground emesis or hematemesis. Today, feels tired, weak. Is lightheadheadness, dizziness. No CP Will have SOB w/ ambulation NSAIDs: was using aleve BID x 2 months for back pain, now stopped ETOH: daily 5-6 drinks ASA: daily AC: none EGD: Normal esophagus. Non-obstructing Schatzki's ring Z-line regular, 38 cm from the incisors.Diffuse gastritis. Biopsied.Congested duodenal mucosa. Biopsied.Normal second portion of the duodenum and third portion of the duodenum. Colonoscopy: The examined portion of the ileum was normal. One 5 mm polyp in the cecum, removed with a cold snare. Resected and retrieved. One 18 mm polyp in the cecum, removed piecemeal using a hot snare. Incomplete resection. Resected tissue retrieved. Treated with argon plasma coagulation (APC). Clip ( MR conditional) was placed.- One 7 mm polyp in the descending colon, removed with a hot snare. Resected and retrieved.One 5 mm polyp in the rectum, removed with a cold snare. Resected and retrieved. Internal hemorrhoids. Moderate diverticulosis in the entire examined colon. the examination was otherwise normal. Allergies Allergy/AdvReac Type Severity Reaction Status Date / Time No Known Allergies Allergy Unverified 10/11/18 09:49 Home Medications Home Medications Medication Instructions Recorded Confirmed Type acetaminophen [Tylenol Extra 500 mg PO BID 10/08/18 10/11/18 History Strength] amlodipine [Norvasc] 10 mg PO QAM 10/08/18 10/11/18 History atorvastatin [Lipitor] 40 mg PO HS 10/08/18 10/11/18 History cyanocobalamin (vitamin B-12) 1,000 mcg PO HS 10/08/18 10/11/18 History [Vitamin B-12] hydralazine 25 mg PO BID 10/08/18 10/11/18 History indapamide 2.5 mg PO QAM 10/08/18 10/11/18 History propylene glycol [Systane Balance] 1 drp OPB QAM 10/08/18 10/11/18 History quinapril [Accupril] 40 mg PO QAM 10/08/18 10/11/18 History vit A,C and X-ozszpk-phjljyjp 1 tab PO QAM 10/08/18 10/11/18 History [Ocuvite with Lutein] metformin 500 mg PO PM 10/11/18 10/11/18 History metoprolol succinate [Toprol XL] 200 mg PO QAM 10/11/18 10/11/18 History Patient History Medical History Alcohol use (Chronic) Lumbar spinal stenosis (Chronic) Dyslipidemia (Chronic) Prediabetes (Chronic) HTN (hypertension) (Chronic) Hx of spinal stenosis (Chronic) Umbilical hernia (Chronic) Surgical History History of tonsillectomy and adenoidectomy (Chronic) History of appendectomy (Chronic) Family History Mother CHF (congestive heart failure) Social History marital status: Current Living Situation: Spouse Other Information That Helps Us Care for You: No Feels Safe at Home: Yes Safety Concerns: Feels Safe At This Time Smoking Status: Former smoker Smoking End Date: 30 years ago Second Hand Exposure: No Hx Alcohol Use: Yes Alcohol type: beer Alcohol Intake Frequency: 3 or more drinks per day Alcohol Intake Frequency Comment: 6-7 beers/day Hx Substance Use: No Beliefs That Will Affect Care: None Communication Ability: Effective Review of Systems Constitutional: + fatigue and + weakness; no fever and no chills Respiratory: no cough, no chest congestion and no dyspnea Cardiovascular: no chest pain, no radiating jaw, neck or arm pain, no dyspnea on exertion and no palpitations Gastrointestinal: + blood in stools; no abdominal pain, no belching, no bloating , no early satiety, no heartburn, no nausea, no vomiting, no coffee ground emesis, no hematemesis, no dysphagia, no cramping, no change in bowel habits, no change in stools, no constipation, no diarrhea/loose stools, no fecal incontinence and no melena Physical Exam 2 Vital Signs (Past 24 Hours): Last Vital Signs Temp 36.8 C 10/11/18 09:11 Pulse 111 H 10/11/18 09:11 Resp 20 10/11/18 09:11 BP 95/58 L 10/11/18 09:11 Pulse Ox 95 10/11/18 10:01 Constitutional: cooperative and comfortable; + not well nourished and no acute distress Respiratory: normal respiratory effort, lungs clear to auscultation Cardiovascular: RRR, no murmur, no edema Gastrointestinal (Abdomen): normal bowel sounds, soft, nontender, no hepatosplenomegaly Skin: no rashes, warm and dry + pallor Results & Data Laboratory Results 10/11/18 10/11/18 10/11/18 Range/Units 09:55 09:45 09:45 WBC (4.8-10.8) K/uL RBC (4.7-6.1) M/uL Hgb (14.0-18.0) g/dL POC Hgb 6.8 L* (14.0-18.0) g/dl Hct (42-52) % POC Hct 20 L* (42-52) % MCV (80-100) fL MCH (25-34) pg MCHC (32-36) g/dL RDW Std Deviation (36.4-46.3) fL RDW Coeff of Steven (11.5-14.5) % Plt Count (130-400) K/uL MPV (7.4-10.4) fL Immature Gran % (Auto) % Neut % (Auto) % Lymph % (Auto) % [place] % (Auto) % Eos % (Auto) % Baso % (Auto) % Immature Gran # (Auto) (0.00-0.02) K/uL Neut # (Auto) (1.4-6.5) K/uL Lymph # (Auto) (1.2-3.4) K/uL [place] # (Auto) (0.11-0.59) K/uL Eos # (Auto) (0-0.5) K/uL Baso # (Auto) (0-0.2) K/uL PT (9.0-12.0) Seconds INR (0.9-1.1) APTT (21.0-31.0) Seconds PTT Ratio POC Sodium 137 (135-144) mEq/L Sodium Pending POC Potassium 4.6 (3.3-5.0) mEq/L Potassium Pending POC Chloride 102 (101-112) mEq/L Chloride Pending Carbon Dioxide Pending POC Total CO2 21 L (24-31) mEq/l Anion Gap Pending POC Anion Gap 20.0 (16-25) mmol/L POC BUN 7 (7-18) mg/dl BUN Pending Creatinine Pending POC Creatinine 1.0 (0.6-1.3) mg/dl Est Cr Clr Drug Dosing Pending Est GFR ( Amer) Pending Est GFR (Non-Af Amer) Pending BUN/Creatinine Ratio Pending Glucose Pending POC Glucose (other) 134 H (70-99) mg/dl Calcium Pending POC Ioniz Calcium Joyce 1.18 (1.12-1.32) mmol/l Total Bilirubin Pending AST Pending ALT Pending Alkaline Phosphatase Pending Troponin I Pending Total Protein Pending Albumin Pending Globulin Pending Albumin/Globulin Ratio Pending Blood Type Pending Antibody Screen Pending Crossmatch See Detail 10/11/18 10/11/18 Range/Units 09:45 09:45 WBC 9.48 (4.8-10.8) K/uL RBC 2.14 L (4.7-6.1) M/uL Hgb 7.1 L (14.0-18.0) g/dL POC Hgb (14.0-18.0) g/dl Hct 21.8 L (42-52) % POC Hct (42-52) % MCV 101.9 H (80-100) fL MCH 33.2 (25-34) pg MCHC 32.6 (32-36) g/dL RDW Std Deviation 53.2 H (36.4-46.3) fL RDW Coeff of Steven 14.4 (11.5-14.5) % Plt Count 232 (130-400) K/uL MPV 10.0 (7.4-10.4) fL Immature Gran % (Auto) 0.3 % Neut % (Auto) 79.7 % Lymph % (Auto) 11.0 % [place] % (Auto) 6.4 % Eos % (Auto) 2.3 % Baso % (Auto) 0.3 % Immature Gran # (Auto) 0.03 H (0.00-0.02) K/uL Neut # (Auto) 7.55 H (1.4-6.5) K/uL Lymph # (Auto) 1.04 L (1.2-3.4) K/uL [place] # (Auto) 0.61 H (0.11-0.59) K/uL Eos # (Auto) 0.22 (0-0.5) K/uL Baso # (Auto) 0.03 (0-0.2) K/uL PT 11.5 (9.0-12.0) Seconds INR 1.1 (0.9-1.1) APTT 21.2 (21.0-31.0) Seconds PTT Ratio 0.8 POC Sodium (135-144) mEq/L Sodium POC Potassium (3.3-5.0) mEq/L Potassium POC Chloride (101-112) mEq/L Chloride Carbon Dioxide POC Total CO2 (24-31) mEq/l Anion Gap POC Anion Gap (16-25) mmol/L POC BUN (7-18) mg/dl BUN Creatinine POC Creatinine (0.6-1.3) mg/dl Est Cr Clr Drug Dosing Est GFR ( Amer) Est GFR (Non-Af Amer) BUN/Creatinine Ratio Glucose POC Glucose (other) (70-99) mg/dl Calcium POC Ioniz Calcium Joyce (1.12-1.32) mmol/l Total Bilirubin AST ALT Alkaline Phosphatase Troponin I Total Protein Albumin Globulin Albumin/Globulin Ratio Blood Type Antibody Screen Crossmatch
[2018-10-11 10:10] LABS: iSTAT Hemoglobin 6.8 g/dl (14.0-18.0); iSTAT Ionized Calcium 1.18 mmol/l (1.12-1.32)
[2018-10-11 10:11] LABS: INR 1.1 (0.9-1.1); Partial Thromboplastin Ratio 0.8; Partial Thromboplastin Time 21.2 Seconds (21.0-31.0); Prothrombin Time 11.5 Seconds (9.0-12.0)
[2018-10-11 10:20] LABS: Macrocytosis Present; Polychromasia 1+
[2018-10-11 10:37] LABS: Albumin Globulin Ratio 1.1 (0.9-2); Albumin Level 2.9 gm/dl (3.4-5.0); BUN Creatinine Ratio 8.2 (10-20); Bilirubin,Total 0.4 mg/dl (0.2-1); Calcium 8.3 mg/dl (8.5-10.1); Creatinine Clr Calc Pharmacy 68.7 ml/min; Est GFR (African American) 72.8; Est GFR (Non-African American) 62.8; Globulin 2.7 gm/dl (2.5-4.0); Potassium 4.5 mmol/L (3.5-5.1); Total Protein 5.6 gm/dl (6.4-8.2); Troponin I 0.041 ng/ml (0-0.045)
[2018-10-11] MEDS ORDERED: FUROSEMIDE 40 MG/4 ML VIAL IV ONE (11:27)
--- NOTE | 2018-10-11 11:31 | History & Physical Report ---
Date of Service October 11, 2018 Assessment & Plan (1) Acute GI bleeding: (2) Symptomatic anemia: This is a 77 year old male with significant PMH of HTN, HLD, Pre-DM2, ETOH use, LSS who presents to [facility] ED secondary to BRBPR x 3 episodes. Recently admitting and discharged 10/08-10/10/18 due to anemia and melena x 1 week. Hbg at discharge 7.7. Underwent EGD (normal) and colonoscopy ( 4 polyps removed and small/large diverticula). Presents today with hbg 6.8 and 7.1 on recheck with BRBPR x 3 this early a.m. Hemodynamically unstable upon presentation which improved with IVF resuscitation , BP 145/74 and HR 88 upon my examination. ? if secondary to polypectomy vs diverticular bleed -admit to med/surg tele -Transfuse 2 units PRBC with 20mg IV lasix in between units -GI on board, appreciate their recommendations -Clear liquid diet, go lytley and monitor -if bleeding persists pt to undergo additional colonoscopy and if resolves no intervention needed -H/H q8hr and follow bmp -consult general surgery per attending recommendations (3) HTN (hypertension): -blood pressure on lower side upon admission given anemia -continue metoprolol but hold all other antihypertensives for now including amlodipine, quinapirl, hydralazine, indapamide -monitor close (4) Dyslipidemia: -hold statin for now (5) Prediabetes: -A1C 5.5 02/2018 -hold metformin, implement novolog per protocol (6) Alcohol use: -drinks ~ 20 yeunglings/week, last drink 2 weeks ago -last drink 2 weeks ago -no s/sx of withdrawl most recent admission -place on at risk protocol AWSS (7) DVT prophylaxis: -SCDS given symptomatic anemia and acute GIB Disposition: D/C to home when able Follow up: Dr Medrano upon discharge 10/15/18 Patient was seen in collaboration with Dr. Iqbal, please see addendum History of Present Illness Chief Complaint: BRBPR x 3 episodes. Primary Care Provider: Jerry Medrano This is a 77 year old male with significant PMH of HTN, HLD, Pre-DM2, ETOH use, LSS who presents to [facility] ED secondary to BRBPR x 3. Unfortunately patient was admitted to [facility] 10/08/18 and discharged 10/10/18 secondary to black stools and lightheadedness x 6 days. Hgb was 9.6. He had an EGD 10/09 which was negative and colonoscopy on 10/10 which revealed polyp x 4 with removal by snare and cautery and small/large divertula. Upon discharge hbg was 7.7. He did not receive any blood products at this time. He was discharged home yesterday and felt very, "nervous." He was able to sleep and slept well when he was awoken x 3 with a BM, loose watery. BM had BRBPR in toilet bowl and on undergarments, even notes dark red clots. He complains of feeling dizzy, lightheaded and SOB first thing this a.m. Denies f/c/s, chest pain, palpitations, wheezing, n/v , abdominal pain. is at bedside. Allergies Allergy/AdvReac Type Severity Reaction Status Date / Time No Known Allergies Allergy Unverified 10/11/18 09:49 Home Medications Home Medications Medication Instructions Recorded Confirmed Type acetaminophen [Tylenol Extra 500 mg PO BID 10/08/18 10/11/18 History Strength] amlodipine [Norvasc] 10 mg PO QAM 10/08/18 10/11/18 History atorvastatin [Lipitor] 40 mg PO HS 10/08/18 10/11/18 History cyanocobalamin (vitamin B-12) 1,000 mcg PO HS 10/08/18 10/11/18 History [Vitamin B-12] hydralazine 25 mg PO BID 10/08/18 10/11/18 History indapamide 2.5 mg PO QAM 10/08/18 10/11/18 History propylene glycol [Systane Balance] 1 drp OPB QAM 10/08/18 10/11/18 History quinapril [Accupril] 40 mg PO QAM 10/08/18 10/11/18 History vit A,C and K-bkzpjf-jpslfwlu 1 tab PO QAM 10/08/18 10/11/18 History [Ocuvite with Lutein] metformin 500 mg PO PM 10/11/18 10/11/18 History metoprolol succinate [Toprol XL] 200 mg PO QAM 10/11/18 10/11/18 History Past Med/Surg History Medical History Alcohol use (Chronic) Lumbar spinal stenosis (Chronic) Dyslipidemia (Chronic) Prediabetes (Chronic) HTN (hypertension) (Chronic) Hx of spinal stenosis (Chronic) Umbilical hernia (Chronic) Surgical History History of tonsillectomy and adenoidectomy (Chronic) History of appendectomy (Chronic) Family History Mother CHF (congestive heart failure) Social History marital status: Current Living Situation: Spouse Other Information That Helps Us Care for You: No Feels Safe at Home: Yes Safety Concerns: Feels Safe At This Time Smoking Status: Former smoker Smoking End Date: 30 years ago Second Hand Exposure: No Hx Alcohol Use: Yes Alcohol type: beer Alcohol Intake Frequency: 3 or more drinks per day Alcohol Intake Frequency Comment: 6-7 beers/day Hx Substance Use: No Beliefs That Will Affect Care: None Preferred Language: Indonesian Communication Ability: Effective Review of Systems All systems reviewed & are unremarkable except as noted in HPI & below Physical Exam 2 Vital Signs (Past 24 Hours): Last Vital Signs Temp 36.9 C 10/11/18 11:14 Pulse 87 10/11/18 11:14 Resp 18 10/11/18 11:14 BP 126/58 L 10/11/18 11:14 Pulse Ox 99 10/11/18 11:14 Constitutional: WD/WN, vitals as above + morbidly obese Eyes: PERRL, conjunctivae normal, anicteric sclerae ENMT: external ear and nose normal, oropharynx normal Mouth: + oropharynx abnormality (thickened uvula with erythema at base) Throat: uvula midline and + uvular edema Neck: trachea midline, no thyromegaly Respiratory: normal respiratory effort, lungs clear to auscultation Cardiovascular: Rate/Rhythm: regular rate and regular rhythm Heart Sounds: + murmur (2/6 cardiac base KATIE) Extremities: + edema (+1 pretibial edema , pedal pulse +2 and equal) Gastrointestinal (Abdomen): normal bowel sounds, soft, nontender, no hepatosplenomegaly Inspection/Auscultation: + visible herniation (umbilical ) + Obese Musculoskeletal: no cyanosis or clubbing, extremities motor strength 5/5 Skin: no rashes, warm and dry Neurologic: CN's II-XI intact bilaterally, moves all extremities and awake Psychiatric: A+Ox3, euthymic affect Results & Data Laboratory Results Short CBC 10/11/18 Range/Units 09:45 WBC 9.48 (4.8-10.8) K/uL Hgb 7.1 L (14.0-18.0) g/dL Hct 21.8 L (42-52) % Plt Count 232 (130-400) K/uL BMP 10/11/18 09:45 Sodium 137 Potassium 4.5 D Chloride 107 Carbon Dioxide 22 BUN 9 Creatinine 1.11 Glucose 136 H Calcium 8.3 L Cardiac Enzymes 10/11/18 Range/Units 09:45 Troponin I 0.041 (0-0.045) ng/ml Liver Function 10/11/18 Range/Units 09:45 Total Bilirubin 0.4 (0.2-1) mg/dl AST 25 (15-37) U/L ALT 27 (12-78) U/L Alkaline Phosphatase 76 (45-117) U/L Albumin 2.9 L (3.4-5.0) gm/dl ECG Rate (beats per minute): 97 Additional Comments: QTC 457ms Code Status & VTE Plan Code Status Full Code VTE Prophylaxis Plan VTE Prophylaxis will be ordered: Yes Reason for no VTE drug order: Contraindicated Supervising Physician Co-Signing Physician Notes I saw this patient, I participated in the history, physical, review of systems, and physical exam. I reviewed the medications with the patient and helped reconcile the medications. I took a detailed family and social history as well. I formulated the assessment and plan personally with the physician marketing communications assistant and went over it with the patient and his . _ (1) HTN (hypertension) Hypertension type: essential hypertension Qualified Code(s): I10 - Essential (primary) hypertension
[2018-10-11] MEDS ORDERED: LAVAGE SOLUTION 4000ML PO ONE (11:55)
[2018-10-11] MEDS ORDERED: ACETAMINOPHEN 325 MG TAB PO PRN (13:21)
[2018-10-11] MEDS ORDERED: ONDANSETRON INJ 2 MG/ML 2 ML VIAL IV PRN (13:21)
[2018-10-11] MEDS ORDERED: GLUCOSE 10 TABS/TUBE PO PRN (13:21)
[2018-10-11] MEDS ORDERED: GLUCAGON FOR INJ 1 MG VIAL SQ PRN (13:21)
[2018-10-11] MEDS ORDERED: MAGNESIUM HYDROXIDE SUSP 30 ML UDC PO PRN (13:21)
[2018-10-11] MEDS ORDERED: ALUMINUM/MAGNESIUM SUSP 30 ML UDC PO PRN (13:21)
[2018-10-11] MEDS ORDERED: LORazepam 0.5 MG TAB PO PRN (13:21)
[2018-10-11] MEDS ORDERED: LORazepam 1 MG TAB PO PRN (13:21)
[2018-10-11] MEDS ORDERED: CARBOHYDRATES FOR HYPOGLYCEMIA PO PRN (13:21)
[2018-10-11] MEDS ORDERED: DEXTROSE 50% 50 ML SYRINGE IV PRN (13:21)
[2018-10-11] MEDS ORDERED: GLUCOSE 40% GEL 15 GM TUBE PO PRN (13:21)
[2018-10-11] MEDS ORDERED: POLYETHYLENE (MIRALAX) 17 GM PACK PO PRN (13:21)
[2018-10-11 13:58] LABS: Hematocrit (blood only) 26.5 % (42-52); Hemoglobin 8.9 g/dL (14.0-18.0)
[2018-10-11] MEDS ORDERED: FUROSEMIDE 20 MG in SYRINGE 0 ML IV ONE (14:00)
[2018-10-11] MEDS: INSULIN ASPART 100 UNITS/ML 3 ML PEN SC SCH ×3 (14:05→20:27)
--- NOTE | 2018-10-11 15:45 | Emergency Department Note ---
Entered by Evangelina Devlin acting as a scribe for ED Provider Note CHIEF COMPLAINT: Rectal Bleeding HISTORY OF PRESENT ILLNESS: The patient is a 77 year old male who presents to the Emergency Department with complaints of rectal bleeding this morning. The patient states that he had a polyp removal done yesterday, felt weak but well, and went home. His states that the patient's hemoglobin was 7.7 yesterday. The patient states that he was not given blood when he was here in the hospital and denies a history of a blood transfusion ever. He states that he was here 3 days ago for rectal bleeding. His states that the patient's EGD was normal but reports that 2 biopsies were taken. The patient states that he had 3 episodes of bleeding this morning. His states that the patient was tired and fatigued this morning. The patient states that he feels better sitting and laying. He states that he had black stools 1 week ago when the patient's symptoms began, but states that the patient's stools were red this morning. His states that the patient looks pale and usually has more color in his cheeks. Pt denies LOC, headache, fevers, chills, diaphoresis, visual changes, neck pain , chest pain, breathing difficulties, nausea, vomiting, abdominal pain, back pain, numbness, lymphadenopathy, rash, or other complaints. REVIEW OF SYSTEMS: See HPI for pertinent positives and negatives. A total of ten systems were reviewed and were otherwise negative. PMHx/PSHx: Spinal Stenosis, Anemia, GI bleed, appendectomy, HTN SOCIAL HISTORY: Patient lives at home. PHYSICAL EXAM: GENERAL: Awake, alert, well-appearing, in no distress HENT: Normocephalic, atraumatic. Oropharynx unremarkable, erythema to the uvula. EYES: Pale conjunctiva. Sclera non-icteric. NECK: Inspection normal. Non-tender. Supple. No nuchal rigidity. FROM. No masses. RESPIRATORY: Clear to auscultation. No wheezes. No rales. Normal respiratory effort. CARDIAC: Normal rate. Normal rhythm. No murmurs. No rubs. Extremities warm and well perfused. Pulses equal. No JVD. GI: Soft. No tenderness to palpation. No rebound or guarding. Non-tender umbilical hernia. RECTAL: Deferred. MUSCULOSKELETAL: Atraumatic. Chest examination reveals no tenderness. The back is symmetrical on inspection without obvious abnormality. There is no CVA tenderness to palpation. No joint edema. LOWER EXTREMITIES: Calves are equal size bilaterally and non-tender. 1+ lower extremity. edema. No discoloration. NEURO: Normal sensorium. No sensory or motor deficits noted. SKIN: No rash or jaundice noted. EMERGENCY DEPARTMENT COURSE: 927: Past medical records reviewed. The patient was evaluated in room B6, and a complete history and physical examination were performed. The patient was also consented for blood. 0946: I discussed the patient's case with Marika T[facility] GI who will come see the patient. 1000: GI is with the patient. I updated the patient and he verbalized agreement and understanding of the treatment plan. 1012: I discussed the patient's case with Kelle Hall PA-C who will evaluate the patient for further management. 1220: The patient was given blood in the ED. MEDICAL DECISION MAKING: Prior records/ancillary studies reviewed. The patient had a polypectomy performed. He was found to have diverticulosis. He was discharged with a significant anemia. Triage Nursing notes reviewed and agree them. Additional history obtained from the the patient's .. The patient's history was concerning for possible gastrointestinal bleeding. Differential diagnosis: Etiologies such as diverticulosis, AVM, coagulopathy, colitis, inflammatory bowel disease, malignancy,Wen-Dumas tear, esophagitis, peptic ulcer disease , variceal bleed, gastritis, epistaxis, fissure, hemorrhoids, as well as others were entertained. Physical exam: As above. ER treatment provided: Normal saline hydration Packed red blood cell transfusion On reassessment the patient felt better. Diagnostics interpreted by me: ECG: Negative for ischemia The labs revealed a significant anemia on i-STAT with a hemoglobin of 6.8. Chemistries unremarkable. Labs hemoglobin was very concerning at 7.1 confirming the severe anemia. Chemistries otherwise unremarkable. Imaging studies: Deferred The patient had continued GI bleeding. He is symptomatic with his anemia. His hemoglobin has dropped even more so than when he was discharged from the hospital. I did consent him for packed red blood cell transfusion given the continued bleeding and severe anemia. The patient and consented. This was initiated in the ER. Consultation: A consultation was placed with the [facility] gastroenterology team as well as the [facility] hospitalist. The case was discussed and diagnostics were reviewed. The patient was evaluated in the ER for further treatment. IMPRESSION: Acute GI bleed, Symptomatic Anemia PLAN: Admitted The scribe's documentation has been prepared under my direction and personally reviewed by me in its entirety. I confirm that the note above accurately reflects all work, treatment, procedures, and medical decision making performed by me. CRITICAL CARE: I have personally spent greater than 30 minutes of critical care time in the direct management of this patient. This includes bedside care, interpretation of diagnostic studies, and testing, discussion with consultants, patient, and family members, and other required patient management activities. This 30 minutes is in excess of all separately billable procedures. Impression & Plan Acute GI bleeding, Symptomatic anemia Past Med/Surg History Medical History Alcohol use (Chronic) Lumbar spinal stenosis (Chronic) Dyslipidemia (Chronic) Prediabetes (Chronic) HTN (hypertension) (Chronic) Hx of spinal stenosis (Chronic) Umbilical hernia (Chronic) Surgical History History of tonsillectomy and adenoidectomy (Chronic) History of appendectomy (Chronic) Family History Mother CHF (congestive heart failure) Social History marital status: Current Living Situation: Spouse Other Information That Helps Us Care for You: No Feels Safe at Home: Yes Safety Concerns: Feels Safe At This Time Smoking Status: Former smoker Smoking End Date: 30 years ago Second Hand Exposure: No Hx Alcohol Use: Yes Alcohol type: beer Alcohol Intake Frequency: 3 or more drinks per day Alcohol Intake Frequency Comment: 6-7 beers/day Hx Substance Use: No Beliefs That Will Affect Care: None Communication Ability: Effective Results & Data Vital Signs Vital Signs - 24 hr 10/11/18 08:54 10/11/18 09:11 10/11/18 10:01 Temperature 36.8 C Temperature Source Oral Sepsis Recent Fever Within 48 Hours No Sepsis Action Taken by Nursing No Action Required Pulse Rate 93 H 111 H Pulse Rate [Apical] Pulse Rate [Brachial] Pulse Rhythm Regular Pulse Strength Normal Respiratory Rate 24 20 Respiratory Effort / Characteristics Non-Labored Respiratory Depth Normal Respiratory Pattern Blood Pressure 95/58 L 95/58 L Blood Pressure [Right Arm] Blood Pressure Mean 70 70 Blood Pressure Mean [Right Arm] Blood Pressure Position Sitting Blood Pressure Position [Right Arm] Pulse Oximetry 97 95 95 Oxygen Delivery Method Room Air Room Air 10/11/18 10:08 10/11/18 10:10 10/11/18 10:20 Temperature Temperature Source Sepsis Recent Fever Within 48 Hours Sepsis Action Taken by Nursing Pulse Rate 88 88 99 H Pulse Rate [Apical] Pulse Rate [Brachial] Pulse Rhythm Pulse Strength Respiratory Rate 10 L 19 19 Respiratory Effort / Characteristics Respiratory Depth Respiratory Pattern Blood Pressure 145/74 H Blood Pressure [Right Arm] Blood Pressure Mean 97 Blood Pressure Mean [Right Arm] Blood Pressure Position Blood Pressure Position [Right Arm] Pulse Oximetry 97 100 99 Oxygen Delivery Method 10/11/18 10:30 10/11/18 10:31 10/11/18 10:40 Temperature Temperature Source Sepsis Recent Fever Within 48 Hours Sepsis Action Taken by Nursing Pulse Rate 94 H 96 H 113 H Pulse Rate [Apical] Pulse Rate [Brachial] Pulse Rhythm Pulse Strength Respiratory Rate 23 24 19 Respiratory Effort / Characteristics Respiratory Depth Respiratory Pattern Blood Pressure 115/65 Blood Pressure [Right Arm] Blood Pressure Mean 81 Blood Pressure Mean [Right Arm] Blood Pressure Position Blood Pressure Position [Right Arm] Pulse Oximetry 100 100 96 Oxygen Delivery Method 10/11/18 10:50 10/11/18 11:00 10/11/18 11:05 Temperature Temperature Source Sepsis Recent Fever Within 48 Hours Sepsis Action Taken by Nursing Pulse Rate 89 96 H Pulse Rate [Apical] 96 H Pulse Rate [Brachial] Pulse Rhythm Pulse Strength Respiratory Rate 16 23 20 Respiratory Effort / Characteristics Non-Labored Spontaneous Respiratory Depth Normal Respiratory Pattern Regular Blood Pressure Blood Pressure [Right Arm] 115/65 Blood Pressure Mean Blood Pressure Mean [Right Arm] 81 Blood Pressure Position Blood Pressure Position [Right Arm] Pulse Oximetry 98 96 97 Oxygen Delivery Method Room Air 10/11/18 11:09 10/11/18 11:10 10/11/18 11:14 Temperature 36.9 C Temperature Source Oral Sepsis Recent Fever Within 48 Hours Sepsis Action Taken by Nursing Pulse Rate 113 H 99 H 87 Pulse Rate [Apical] Pulse Rate [Brachial] Pulse Rhythm Pulse Strength Respiratory Rate 19 22 18 Respiratory Effort / Characteristics Respiratory Depth Respiratory Pattern Blood Pressure 126/58 L 126/58 L Blood Pressure [Right Arm] Blood Pressure Mean 80 80 Blood Pressure Mean [Right Arm] Blood Pressure Position Blood Pressure Position [Right Arm] Pulse Oximetry 100 100 99 Oxygen Delivery Method 10/11/18 11:15 10/11/18 11:20 10/11/18 11:30 Temperature 36.8 C Temperature Source Oral Sepsis Recent Fever Within 48 Hours Sepsis Action Taken by Nursing Pulse Rate 99 H 79 79 Pulse Rate [Apical] Pulse Rate [Brachial] Pulse Rhythm Pulse Strength Respiratory Rate 15 8 L 17 Respiratory Effort / Characteristics Respiratory Depth Respiratory Pattern Blood Pressure 122/56 L 140/54 L Blood Pressure [Right Arm] Blood Pressure Mean 78 82 Blood Pressure Mean [Right Arm] Blood Pressure Position Blood Pressure Position [Right Arm] Pulse Oximetry 99 97 94 Oxygen Delivery Method 10/11/18 11:31 10/11/18 11:40 10/11/18 11:45 Temperature 36.8 C Temperature Source Oral Sepsis Recent Fever Within 48 Hours Sepsis Action Taken by Nursing Pulse Rate 86 87 85 Pulse Rate [Apical] Pulse Rate [Brachial] Pulse Rhythm Pulse Strength Respiratory Rate 20 20 14 Respiratory Effort / Characteristics Respiratory Depth Respiratory Pattern Blood Pressure 130/62 Blood Pressure [Right Arm] Blood Pressure Mean 84 Blood Pressure Mean [Right Arm] Blood Pressure Position Blood Pressure Position [Right Arm] Pulse Oximetry 97 100 100 Oxygen Delivery Method 10/11/18 11:50 10/11/18 11:51 10/11/18 12:00 Temperature 36.9 C Temperature Source Oral Sepsis Recent Fever Within 48 Hours Sepsis Action Taken by Nursing Pulse Rate 88 85 79 Pulse Rate [Apical] Pulse Rate [Brachial] Pulse Rhythm Pulse Strength Respiratory Rate 28 H 20 9 L Respiratory Effort / Characteristics Respiratory Depth Respiratory Pattern Blood Pressure 122/56 L 134/64 Blood Pressure [Right Arm] Blood Pressure Mean 78 87 Blood Pressure Mean [Right Arm] Blood Pressure Position Blood Pressure Position [Right Arm] Pulse Oximetry 100 100 99 Oxygen Delivery Method 10/11/18 12:01 10/11/18 12:10 10/11/18 12:15 Temperature Temperature Source Sepsis Recent Fever Within 48 Hours Sepsis Action Taken by Nursing Pulse Rate 77 79 78 Pulse Rate [Apical] Pulse Rate [Brachial] Pulse Rhythm Regular Pulse Strength Normal Respiratory Rate 5 L 10 L 15 Respiratory Effort / Characteristics Respiratory Depth Respiratory Pattern Blood Pressure 123/62 Blood Pressure [Right Arm] Blood Pressure Mean 82 Blood Pressure Mean [Right Arm] Blood Pressure Position Blood Pressure Position [Right Arm] Pulse Oximetry 98 99 98 Oxygen Delivery Method 10/11/18 12:20 10/11/18 12:30 10/11/18 12:31 Temperature Temperature Source Sepsis Recent Fever Within 48 Hours Sepsis Action Taken by Nursing Pulse Rate 80 84 86 Pulse Rate [Apical] Pulse Rate [Brachial] Pulse Rhythm Pulse Strength Respiratory Rate 15 17 17 Respiratory Effort / Characteristics Respiratory Depth Respiratory Pattern Blood Pressure 138/58 L Blood Pressure [Right Arm] Blood Pressure Mean 84 Blood Pressure Mean [Right Arm] Blood Pressure Position Blood Pressure Position [Right Arm] Pulse Oximetry 100 99 99 Oxygen Delivery Method 10/11/18 12:40 10/11/18 12:45 10/11/18 13:20 Temperature 36.8 C Temperature Source Oral Sepsis Recent Fever Within 48 Hours Sepsis Action Taken by Nursing Pulse Rate 77 79 Pulse Rate [Apical] Pulse Rate [Brachial] 89 Pulse Rhythm Pulse Strength Respiratory Rate 12 24 16 Respiratory Effort / Characteristics Respiratory Depth Respiratory Pattern Blood Pressure 135/65 Blood Pressure [Right Arm] 143/59 H Blood Pressure Mean 88 Blood Pressure Mean [Right Arm] 87 Blood Pressure Position Blood Pressure Position [Right Arm] Lying Pulse Oximetry 99 100 99 Oxygen Delivery Method Room Air 10/11/18 13:21 Temperature Temperature Source Sepsis Recent Fever Within 48 Hours Sepsis Action Taken by Nursing Pulse Rate 85 Pulse Rate [Apical] Pulse Rate [Brachial] Pulse Rhythm Pulse Strength Respiratory Rate Respiratory Effort / Characteristics Respiratory Depth Respiratory Pattern Blood Pressure Blood Pressure [Right Arm] Blood Pressure Mean Blood Pressure Mean [Right Arm] Blood Pressure Position Blood Pressure Position [Right Arm] Pulse Oximetry Oxygen Delivery Method Home Medications Current Medication List: was personally reviewed by me Laboratory Data Attestation: I reviewed the patient's lab results. Result diagrams: 10/11/18 13:47 10/11/18 09:45 Lab Results 10/11/18 10/11/18 10/11/18 Range/Units 09:45 09:45 09:45 WBC 9.48 (4.8-10.8) K/uL RBC 2.14 L (4.7-6.1) M/uL Hgb 7.1 L (14.0-18.0) g/dL POC Hgb (14.0-18.0) g/dl Hct 21.8 L (42-52) % POC Hct (42-52) % MCV 101.9 H (80-100) fL MCH 33.2 (25-34) pg MCHC 32.6 (32-36) g/dL RDW Std Deviation 53.2 H (36.4-46.3) fL RDW Coeff of Steven 14.4 (11.5-14.5) % Plt Count 232 (130-400) K/uL MPV 10.0 (7.4-10.4) fL Immature Gran % (Auto) 0.3 % Neut % (Auto) 79.7 % Lymph % (Auto) 11.0 % [place] % (Auto) 6.4 % Eos % (Auto) 2.3 % Baso % (Auto) 0.3 % Immature Gran # (Auto) 0.03 H (0.00-0.02) K/uL Neut # (Auto) 7.55 H (1.4-6.5) K/uL Lymph # (Auto) 1.04 L (1.2-3.4) K/uL [place] # (Auto) 0.61 H (0.11-0.59) K/uL Eos # (Auto) 0.22 (0-0.5) K/uL Baso # (Auto) 0.03 (0-0.2) K/uL Polychromasia 1+ Macrocytosis Present PT 11.5 (9.0-12.0) Seconds INR 1.1 (0.9-1.1) APTT 21.2 (21.0-31.0) Seconds PTT Ratio 0.8 POC Sodium (135-144) mEq/L Sodium 137 (136-145) mmol/L POC Potassium (3.3-5.0) mEq/L Potassium 4.5 D (3.5-5.1) mmol/L POC Chloride (101-112) mEq/L Chloride 107 (98-107) mmol/L Carbon Dioxide 22 (21-32) mmol/L POC Total CO2 (24-31) mEq/l Anion Gap 8.0 (3-11) POC Anion Gap (16-25) mmol/L POC BUN (7-18) mg/dl BUN 9 (7-18) mg/dl Creatinine 1.11 (0.6-1.4) mg/dl POC Creatinine (0.6-1.3) mg/dl Est Cr Clr Drug Dosing 68.7 ml/min Est GFR ( Amer) 72.8 Est GFR (Non-Af Amer) 62.8 BUN/Creatinine Ratio 8.2 L (10-20) Glucose 136 H (70-99) mg/dl POC Glucose (70-99) POC Glucose (other) (70-99) mg/dl Calcium 8.3 L (8.5-10.1) mg/dl POC Ioniz Calcium Joyce (1.12-1.32) mmol/l Total Bilirubin 0.4 (0.2-1) mg/dl AST 25 (15-37) U/L ALT 27 (12-78) U/L Alkaline Phosphatase 76 (45-117) U/L Troponin I 0.041 (0-0.045) ng/ml Total Protein 5.6 L (6.4-8.2) gm/dl Albumin 2.9 L (3.4-5.0) gm/dl Globulin 2.7 (2.5-4.0) gm/dl Albumin/Globulin Ratio 1.1 (0.9-2) Blood Type Antibody Screen Crossmatch 10/11/18 10/11/18 10/11/18 Range/Units 09:45 09:55 13:47 WBC (4.8-10.8) K/uL RBC (4.7-6.1) M/uL Hgb 8.9 L (14.0-18.0) g/dL POC Hgb 6.8 L* (14.0-18.0) g/dl Hct 26.5 L (42-52) % POC Hct 20 L* (42-52) % MCV (80-100) fL MCH (25-34) pg MCHC (32-36) g/dL RDW Std Deviation (36.4-46.3) fL RDW Coeff of Steven (11.5-14.5) % Plt Count (130-400) K/uL MPV (7.4-10.4) fL Immature Gran % (Auto) % Neut % (Auto) % Lymph % (Auto) % [place] % (Auto) % Eos % (Auto) % Baso % (Auto) % Immature Gran # (Auto) (0.00-0.02) K/uL Neut # (Auto) (1.4-6.5) K/uL Lymph # (Auto) (1.2-3.4) K/uL [place] # (Auto) (0.11-0.59) K/uL Eos # (Auto) (0-0.5) K/uL Baso # (Auto) (0-0.2) K/uL Polychromasia Macrocytosis PT (9.0-12.0) Seconds INR (0.9-1.1) APTT (21.0-31.0) Seconds PTT Ratio POC Sodium 137 (135-144) mEq/L Sodium (136-145) mmol/L POC Potassium 4.6 (3.3-5.0) mEq/L Potassium (3.5-5.1) mmol/L POC Chloride 102 (101-112) mEq/L Chloride (98-107) mmol/L Carbon Dioxide (21-32) mmol/L POC Total CO2 21 L (24-31) mEq/l Anion Gap (3-11) POC Anion Gap 20.0 (16-25) mmol/L POC BUN 7 (7-18) mg/dl BUN (7-18) mg/dl Creatinine (0.6-1.4) mg/dl POC Creatinine 1.0 (0.6-1.3) mg/dl Est Cr Clr Drug Dosing ml/min Est GFR ( Amer) Est GFR (Non-Af Amer) BUN/Creatinine Ratio (10-20) Glucose (70-99) mg/dl POC Glucose (70-99) POC Glucose (other) 134 H (70-99) mg/dl Calcium (8.5-10.1) mg/dl POC Ioniz Calcium Joyce 1.18 (1.12-1.32) mmol/l Total Bilirubin (0.2-1) mg/dl AST (15-37) U/L ALT (12-78) U/L Alkaline Phosphatase (45-117) U/L Troponin I (0-0.045) ng/ml Total Protein (6.4-8.2) gm/dl Albumin (3.4-5.0) gm/dl Globulin (2.5-4.0) gm/dl Albumin/Globulin Ratio (0.9-2) Blood Type O Positive Antibody Screen NEGATIVE Crossmatch See Detail 10/11/18 Range/Units 13:58 WBC (4.8-10.8) K/uL RBC (4.7-6.1) M/uL Hgb (14.0-18.0) g/dL POC Hgb (14.0-18.0) g/dl Hct (42-52) % POC Hct (42-52) % MCV (80-100) fL MCH (25-34) pg MCHC (32-36) g/dL RDW Std Deviation (36.4-46.3) fL RDW Coeff of Steven (11.5-14.5) % Plt Count (130-400) K/uL MPV (7.4-10.4) fL Immature Gran % (Auto) % Neut % (Auto) % Lymph % (Auto) % [place] % (Auto) % Eos % (Auto) % Baso % (Auto) % Immature Gran # (Auto) (0.00-0.02) K/uL Neut # (Auto) (1.4-6.5) K/uL Lymph # (Auto) (1.2-3.4) K/uL [place] # (Auto) (0.11-0.59) K/uL Eos # (Auto) (0-0.5) K/uL Baso # (Auto) (0-0.2) K/uL Polychromasia Macrocytosis PT (9.0-12.0) Seconds INR (0.9-1.1) APTT (21.0-31.0) Seconds PTT Ratio POC Sodium (135-144) mEq/L Sodium (136-145) mmol/L POC Potassium (3.3-5.0) mEq/L Potassium (3.5-5.1) mmol/L POC Chloride (101-112) mEq/L Chloride (98-107) mmol/L Carbon Dioxide (21-32) mmol/L POC Total CO2 (24-31) mEq/l Anion Gap (3-11) POC Anion Gap (16-25) mmol/L POC BUN (7-18) mg/dl BUN (7-18) mg/dl Creatinine (0.6-1.4) mg/dl POC Creatinine (0.6-1.3) mg/dl Est Cr Clr Drug Dosing ml/min Est GFR ( Amer) Est GFR (Non-Af Amer) BUN/Creatinine Ratio (10-20) Glucose (70-99) mg/dl POC Glucose 144 H (70-99) POC Glucose (other) (70-99) mg/dl Calcium (8.5-10.1) mg/dl POC Ioniz Calcium Joyce (1.12-1.32) mmol/l Total Bilirubin (0.2-1) mg/dl AST (15-37) U/L ALT (12-78) U/L Alkaline Phosphatase (45-117) U/L Troponin I (0-0.045) ng/ml Total Protein (6.4-8.2) gm/dl Albumin (3.4-5.0) gm/dl Globulin (2.5-4.0) gm/dl Albumin/Globulin Ratio (0.9-2) Blood Type Antibody Screen Crossmatch Administered Medications Insulin Aspart (Novolog Flexpen) 0 units SC ACHS [facility] Stop: 11/10/18 13:59 Last Admin: 10/11/18 14:05 Dose: Not Given Miscellaneous (Order Awaiting Action) 1 ea N/A QS [facility] Stop: 11/10/18 15:59 Last Admin: 10/11/18 15:25 Dose: Not Given Discontinued Medications Furosemide (Lasix) 20 mg IV ONE ONE Stop: 10/11/18 11:28 Last Admin: 10/11/18 14:14 Dose: 20 mg Sodium Chloride (Nss) 500 mls @ 999 mls/hr IV .Q31M [facility] Stop: 10/11/18 10:15 Last Infusion: 10/11/18 15:28 Dose: 0 mls/hr Admin: 10/11/18 10:03 Dose: 999 mls/hr Furosemide 20 mg/ Syringe 2 mls @ 4 mls/min IV ONE ONE Stop: 10/11/18 14:01 Last Admin: 10/11/18 14:52 Dose: Not Given Lorazepam (Ativan) 1 mg PO ONE PRN; Protocol PRN Reason: EtoH Withdrawal AWSS 6-10 Last Admin: 10/11/18 13:37 Dose: 1 mg Polyethylene Glycol/Electrolytes (Golytely) 16 dose PO ONE ONE Stop: 10/11/18 11:56 Last Admin: 10/11/18 12:51 Dose: 16 dose ECG Data Attestation: I personally reviewed and interpreted this ECG as follows: Indication: other (bleeding) Rate (beats per minute): 97 Rhythm: normal sinus Findings: no PAC, no PVC, no ST depression, no ST elevation, no acute ischemic change and no ectopy Blood Pressure Blood Pressure Findings: Low blood pressure Blood Pressure Disposition: further management by hospitalist Discharge Plan Visit Data *Final* Discharge Date/Time: 10/11/18 13:00 Chief Complaint: Rectal Bleed ED Provider: Jerry Rucker Discharge Problem: Acute GI bleeding, Symptomatic anemia Patient Disposition: Admitted As Inpatient Discharge Instructions Interventions: ED Discharge Assessment Last Done: 10/11/18 13:00 The scribe's documentation has been prepared under my direction and personally reviewed by me in its entirety. I confirm that the note above accurately reflects all work, treatment, procedures, and medical decision making performed by me.
[2018-10-11] MEDS ORDERED: METOPROLOL TARTRATE 1 MG/ML VIAL IV STA ×2 (16:11→16:27)
[2018-10-11] MEDS ORDERED: METOPROLOL TARTRATE 1 MG/ML VIAL IV ONE (16:14)
[2018-10-11] MEDS ORDERED: GABAPENTIN 1200MG ALCOHOL WITHDRAWAL LOAD PO STA (16:24)
[2018-10-11] MEDS ORDERED: METOPROLOL SUCC 50MG EXT REL TAB PO ONE (16:43)
[2018-10-11] MEDS ORDERED: GABAPENTIN 600 MG TAB PO SCH (17:00)
[2018-10-11] MEDS: CYANOCOBALAMIN 500 MCG TABLET (VITAMIN B-12) PO SCH (20:26)
--- NOTE | 2018-10-11 20:26 | Surgery Consultation ---
Date of Consultation October 11, 2018 Assessment & Plan (1) Acute GI bleeding: This patient only initially had melena in the was unable to be discovered. He is now admitted with hematochezia. He had initiation of a bowel prep and has had bowel movements now with very little blood. His vital signs have been stable. This may be related to diverticulosis or may also be related to a post polypectomy bleed. We will continue to monitor closely. There is no need for surgical intervention at the present time. He has no peritonitis. Present on Admission?: Yes History of Present Illness Reason for Consultation: Hematochezia Requesting Physician: Jose A Iqbal DO Attending Physician: Jose A Iqbal DO History of Present Illness I have been asked by Dr. Iqbal to see this 77-year-old male who was admitted with hematochezia. He had been admitted earlier in the week with melena. He underwent an EGD that was essentially normal. He then had a colonoscopy and 4 polyps were removed. He tolerated a diet and went home. Early in the morning the next day he awoke to have a bowel movement and there was blood there. His describes some clotting. He then subsequently had 2 additional bowel movements with blood. He felt lightheaded and somewhat dizzy. He presented back to the emergency room and his hemoglobin at that time was noted to be 6.8. He is undergone a 2 unit blood transfusion and his hemoglobin has increased to 8.9. Throughout this whole episode he has had no nausea or vomiting. He has had no fever or chills. He denies abdominal pain. He has not had any weight loss. Allergies Allergy/AdvReac Type Severity Reaction Status Date / Time No Known Allergies Allergy Unverified 10/11/18 09:49 Home Medications Home Medications Medication Instructions Recorded Confirmed Type acetaminophen [Tylenol Extra 500 mg PO BID 10/08/18 10/11/18 History Strength] amlodipine [Norvasc] 10 mg PO QAM 10/08/18 10/11/18 History atorvastatin [Lipitor] 40 mg PO HS 10/08/18 10/11/18 History cyanocobalamin (vitamin B-12) 1,000 mcg PO HS 10/08/18 10/11/18 History [Vitamin B-12] hydralazine 25 mg PO BID 10/08/18 10/11/18 History indapamide 2.5 mg PO QAM 10/08/18 10/11/18 History propylene glycol [Systane Balance] 1 drp OPB QAM 10/08/18 10/11/18 History quinapril [Accupril] 40 mg PO QAM 10/08/18 10/11/18 History vit A,C and O-bkuuic-qzfopnwy 1 tab PO QAM 10/08/18 10/11/18 History [Ocuvite with Lutein] metformin 500 mg PO PM 10/11/18 10/11/18 History metoprolol succinate [Toprol XL] 200 mg PO QAM 10/11/18 10/11/18 History Patient History Medical History Alcohol use (Chronic) Lumbar spinal stenosis (Chronic) Dyslipidemia (Chronic) Prediabetes (Chronic) HTN (hypertension) (Chronic) Hx of spinal stenosis (Chronic) Umbilical hernia (Chronic) Surgical History History of tonsillectomy and adenoidectomy (Chronic) History of appendectomy (Chronic) Family History Mother CHF (congestive heart failure) Social History marital status: Current Living Situation: Spouse Other Information That Helps Us Care for You: No Feels Safe at Home: Yes Safety Concerns: Feels Safe At This Time Smoking Status: Former smoker Smoking End Date: 30 years ago Second Hand Exposure: No Hx Alcohol Use: Yes Alcohol type: beer Alcohol Intake Frequency: 3 or more drinks per day Alcohol Intake Frequency Comment: 6-7 beers/day Hx Substance Use: No Beliefs That Will Affect Care: None Communication Ability: Effective Physical Exam 2 Vital Signs (Past 24 Hours): Last Vital Signs Temp 36.9 C 10/11/18 18:15 Pulse 105 H 10/11/18 18:15 Resp 20 10/11/18 18:15 BP 155/63 H 10/11/18 18:15 Pulse Ox 97 10/11/18 18:15 Constitutional: + obese; no acute distress Respiratory: normal respiratory effort, lungs clear to auscultation Cardiovascular: Rate/Rhythm: regular rate and regular rhythm Gastrointestinal (Abdomen): Inspection/Auscultation: normal bowel sounds; abdomen not distended Percussion/Palpation: abdomen soft; abdomen nontender Lymphatic: no cervical lymphadenopathy Results & Data Laboratory Results 10/11/18 10/11/18 10/11/18 Range/Units 20:16 16:57 13:58 WBC (4.8-10.8) K/uL RBC (4.7-6.1) M/uL Hgb (14.0-18.0) g/dL POC Hgb (14.0-18.0) g/dl Hct (42-52) % POC Hct (42-52) % MCV (80-100) fL MCH (25-34) pg MCHC (32-36) g/dL RDW Std Deviation (36.4-46.3) fL RDW Coeff of Steven (11.5-14.5) % Plt Count (130-400) K/uL MPV (7.4-10.4) fL Immature Gran % (Auto) % Neut % (Auto) % Lymph % (Auto) % Bath % (Auto) % Eos % (Auto) % Baso % (Auto) % Immature Gran # (Auto) (0.00-0.02) K/uL Neut # (Auto) (1.4-6.5) K/uL Lymph # (Auto) (1.2-3.4) K/uL Bath # (Auto) (0.11-0.59) K/uL Eos # (Auto) (0-0.5) K/uL Baso # (Auto) (0-0.2) K/uL Polychromasia Macrocytosis PT (9.0-12.0) Seconds INR (0.9-1.1) APTT (21.0-31.0) Seconds PTT Ratio POC Sodium (135-144) mEq/L Sodium (136-145) mmol/L POC Potassium (3.3-5.0) mEq/L Potassium (3.5-5.1) mmol/L POC Chloride (101-112) mEq/L Chloride (98-107) mmol/L Carbon Dioxide (21-32) mmol/L POC Total CO2 (24-31) mEq/l Anion Gap (3-11) POC Anion Gap (16-25) mmol/L POC BUN (7-18) mg/dl BUN (7-18) mg/dl Creatinine (0.6-1.4) mg/dl POC Creatinine (0.6-1.3) mg/dl Est Cr Clr Drug Dosing ml/min Est GFR ( Amer) Est GFR (Non-Af Amer) BUN/Creatinine Ratio (10-20) Glucose (70-99) mg/dl POC Glucose 113 H 109 H 144 H (70-99) POC Glucose (other) (70-99) mg/dl Calcium (8.5-10.1) mg/dl POC Ioniz Calcium Joyce (1.12-1.32) mmol/l Total Bilirubin (0.2-1) mg/dl AST (15-37) U/L ALT (12-78) U/L Alkaline Phosphatase (45-117) U/L Troponin I (0-0.045) ng/ml Total Protein (6.4-8.2) gm/dl Albumin (3.4-5.0) gm/dl Globulin (2.5-4.0) gm/dl Albumin/Globulin Ratio (0.9-2) Blood Type Antibody Screen Crossmatch 10/11/18 10/11/18 10/11/18 Range/Units 13:47 09:55 09:45 WBC (4.8-10.8) K/uL RBC (4.7-6.1) M/uL Hgb 8.9 L (14.0-18.0) g/dL POC Hgb 6.8 L* (14.0-18.0) g/dl Hct 26.5 L (42-52) % POC Hct 20 L* (42-52) % MCV (80-100) fL MCH (25-34) pg MCHC (32-36) g/dL RDW Std Deviation (36.4-46.3) fL RDW Coeff of Steven (11.5-14.5) % Plt Count (130-400) K/uL MPV (7.4-10.4) fL Immature Gran % (Auto) % Neut % (Auto) % Lymph % (Auto) % Bath % (Auto) % Eos % (Auto) % Baso % (Auto) % Immature Gran # (Auto) (0.00-0.02) K/uL Neut # (Auto) (1.4-6.5) K/uL Lymph # (Auto) (1.2-3.4) K/uL Bath # (Auto) (0.11-0.59) K/uL Eos # (Auto) (0-0.5) K/uL Baso # (Auto) (0-0.2) K/uL Polychromasia Macrocytosis PT (9.0-12.0) Seconds INR (0.9-1.1) APTT (21.0-31.0) Seconds PTT Ratio POC Sodium 137 (135-144) mEq/L Sodium (136-145) mmol/L POC Potassium 4.6 (3.3-5.0) mEq/L Potassium (3.5-5.1) mmol/L POC Chloride 102 (101-112) mEq/L Chloride (98-107) mmol/L Carbon Dioxide (21-32) mmol/L POC Total CO2 21 L (24-31) mEq/l Anion Gap (3-11) POC Anion Gap 20.0 (16-25) mmol/L POC BUN 7 (7-18) mg/dl BUN (7-18) mg/dl Creatinine (0.6-1.4) mg/dl POC Creatinine 1.0 (0.6-1.3) mg/dl Est Cr Clr Drug Dosing ml/min Est GFR ( Amer) Est GFR (Non-Af Amer) BUN/Creatinine Ratio (10-20) Glucose (70-99) mg/dl POC Glucose (70-99) POC Glucose (other) 134 H (70-99) mg/dl Calcium (8.5-10.1) mg/dl POC Ioniz Calcium Joyce 1.18 (1.12-1.32) mmol/l Total Bilirubin (0.2-1) mg/dl AST (15-37) U/L ALT (12-78) U/L Alkaline Phosphatase (45-117) U/L Troponin I (0-0.045) ng/ml Total Protein (6.4-8.2) gm/dl Albumin (3.4-5.0) gm/dl Globulin (2.5-4.0) gm/dl Albumin/Globulin Ratio (0.9-2) Blood Type O Positive Antibody Screen NEGATIVE Crossmatch See Detail 10/11/18 10/11/18 10/11/18 Range/Units 09:45 09:45 09:45 WBC 9.48 (4.8-10.8) K/uL RBC 2.14 L (4.7-6.1) M/uL Hgb 7.1 L (14.0-18.0) g/dL POC Hgb (14.0-18.0) g/dl Hct 21.8 L (42-52) % POC Hct (42-52) % MCV 101.9 H (80-100) fL MCH 33.2 (25-34) pg MCHC 32.6 (32-36) g/dL RDW Std Deviation 53.2 H (36.4-46.3) fL RDW Coeff of Steven 14.4 (11.5-14.5) % Plt Count 232 (130-400) K/uL MPV 10.0 (7.4-10.4) fL Immature Gran % (Auto) 0.3 % Neut % (Auto) 79.7 % Lymph % (Auto) 11.0 % Bath % (Auto) 6.4 % Eos % (Auto) 2.3 % Baso % (Auto) 0.3 % Immature Gran # (Auto) 0.03 H (0.00-0.02) K/uL Neut # (Auto) 7.55 H (1.4-6.5) K/uL Lymph # (Auto) 1.04 L (1.2-3.4) K/uL Bath # (Auto) 0.61 H (0.11-0.59) K/uL Eos # (Auto) 0.22 (0-0.5) K/uL Baso # (Auto) 0.03 (0-0.2) K/uL Polychromasia 1+ Macrocytosis Present PT 11.5 (9.0-12.0) Seconds INR 1.1 (0.9-1.1) APTT 21.2 (21.0-31.0) Seconds PTT Ratio 0.8 POC Sodium (135-144) mEq/L Sodium 137 (136-145) mmol/L POC Potassium (3.3-5.0) mEq/L Potassium 4.5 D (3.5-5.1) mmol/L POC Chloride (101-112) mEq/L Chloride 107 (98-107) mmol/L Carbon Dioxide 22 (21-32) mmol/L POC Total CO2 (24-31) mEq/l Anion Gap 8.0 (3-11) POC Anion Gap (16-25) mmol/L POC BUN (7-18) mg/dl BUN 9 (7-18) mg/dl Creatinine 1.11 (0.6-1.4) mg/dl POC Creatinine (0.6-1.3) mg/dl Est Cr Clr Drug Dosing 68.7 ml/min Est GFR ( Amer) 72.8 Est GFR (Non-Af Amer) 62.8 BUN/Creatinine Ratio 8.2 L (10-20) Glucose 136 H (70-99) mg/dl POC Glucose (70-99) POC Glucose (other) (70-99) mg/dl Calcium 8.3 L (8.5-10.1) mg/dl POC Ioniz Calcium Joyce (1.12-1.32) mmol/l Total Bilirubin 0.4 (0.2-1) mg/dl AST 25 (15-37) U/L ALT 27 (12-78) U/L Alkaline Phosphatase 76 (45-117) U/L Troponin I 0.041 (0-0.045) ng/ml Total Protein 5.6 L (6.4-8.2) gm/dl Albumin 2.9 L (3.4-5.0) gm/dl Globulin 2.7 (2.5-4.0) gm/dl Albumin/Globulin Ratio 1.1 (0.9-2) Blood Type Antibody Screen Crossmatch
[2018-10-11] MEDS: GABAPENTIN 600 MG TAB PO SCH (20:27)
[2018-10-11] MEDS: ACETAMINOPHEN 500 MG TAB PO SCH (20:45)
[2018-10-11 21:33] LABS: Hematocrit (blood only) 24.9 % (42-52); Hemoglobin 8.5 g/dL (14.0-18.0)
--- NOTE | 2018-10-11 23:45 | Consultation Report ---
DATE OF CONSULTATION: 10/11/2018 REFERRING PHYSICIAN: Dr. Iqbal. INDICATIONS: Atrial fibrillation with rapid ventricular response. PRIMARY CARE PHYSICIAN: Jerry Medrano MD HISTORY OF PRESENT ILLNESS: The patient is a 77-year-old male with recent complex history with hospitalization on 10/08/2018 with melena and GI bleeding. The patient was stabilized and underwent colonoscopy with clipping of polyps per report and was discharged to home yesterday, only to return today with brittany melena this morning, mild hypertension, hemoglobin of 6.8. He has received 1 unit transfusion with packed, second unit pending. Patient's all medications were held this morning due to mild hypertension, concerns regarding possible further GI evaluation. Patient this afternoon lapsed into atrial fibrillation with rapid ventricular response and I have been consulted for further management. He was given IV metoprolol 5 mg on my request and subsequently spontaneously converted back to sinus rhythm. He is currently comfortable. He was not aware of atrial fibrillation when it occurred. Denies any prior history of atrial arrhythmias, tachypalpitations, syncope, or near syncope. He is aware of the diagnosis of atrial fibrillation as his is cared for such. He notes no prior bleeding difficulties, notes no history of TIA or stroke, notes no history of syncope or near syncope. Underlying medical problems include hypertension on multiple drug regimen, dyslipidemia, prediabetes, chronic alcohol use. REVIEW OF SYSTEMS: As per HPI and otherwise negative. PAST SURGICAL HISTORY: Notable for tonsillectomy, appendectomy, and as noted EGD and colonoscopy this past admission. FAMILY HISTORY: Notable for possible heart failure in mother. 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 He is a nonsmoker. He does drink 6-7 alcoholic drinks per day. He uses no other significant [id number]-hmx-[id number] medications other than vitamin A and C, has an Ocuvite supplement. PHYSICAL EXAMINATION: GENERAL: The patient is an obese, age-appropriate male in no acute distress. VITAL SIGNS: Heart rate is 82, blood pressure is 128/68. HEENT: Normocephalic and atraumatic. Nares without discharge. Throat was clear. NECK: Supple, but thick. There is no distinct jugular venous distention. LUNGS: Reveal good aeration to both bases. CARDIOVASCULAR: Regular with normal S1, S2. Heart sounds are distant but there is no audible murmur, gallop, or rub. PMI is nondisplaced. ABDOMEN: Obese, soft. There is no palpable hepatosplenomegaly or hyperactive bowel sounds. EXTREMITIES: Without cyanosis or clubbing. There is trace peripheral edema. There are intact distal pulses, are 2/4. NEUROLOGIC: The patient is alert and oriented and answered questions appropriately. LABORATORY DATA: Laboratory studies this morning, hemoglobin was 6.8. This afternoon, hemoglobin at 1347 was 8.9. Electrolytes this morning on presentation revealed a sodium of 137, potassium 4.5, chloride 107, bicarbonate 22. Troponin I was 0.04, globulin was 2.7, ____ is 134. Chest x-ray reveals a mildly enlarged cardiac silhouette without infiltrate or edema. EKG on initial presentation, on 10/08/2018 revealed sinus bradycardia with normal tracing. EKG on presentation this morning revealed sinus rhythm with sinus arrhythmia. IMPRESSION AND PLAN: A 77-year-old male admitted with lower GI bleed. Underlying medical history was hypertension on multiple drug regimen including a large dose beta porter with drugs held, relapsed into atrial fibrillation this afternoon, likely on the basis of illness and beta-porter withdrawal. He subsequently returned to sinus rhythm with 5 mg of IV metoprolol. We will give a.m. dosing of metoprolol succinate, continue to hold other antihypertensives until GI evaluation complete. Echocardiogram will be ordered to complete patient's evaluation. The patient has contraindications to anticoagulation at this time. We discussed potential need for anticoagulation in the future should patient have persistent return of atrial fibrillation. The patient understands above instructions. Data relayed to primary service.
[2018-10-12] MEDS: GABAPENTIN 600 MG TAB PO SCH ×3 (06:30→21:58)
[2018-10-12 07:59] LABS: Hematocrit (blood only) 25.1 % (42-52); Hemoglobin 8.4 g/dL (14.0-18.0)
[2018-10-12] MEDS: INSULIN ASPART 100 UNITS/ML 3 ML PEN SC SCH ×4 (08:24→21:58)
[2018-10-12 08:28] LABS: BUN Creatinine Ratio 7.9 (10-20); Calcium 7.8 mg/dl (8.5-10.1); Creatinine Clr Calc Pharmacy 69.2 ml/min; Est GFR (African American) 73.6; Est GFR (Non-African American) 63.5; Potassium 3.2 mmol/L (3.5-5.1)
--- NOTE | 2018-10-12 08:31 | Hospitalist Progress Note ---
Date of Service October 12, 2018 Assessment & Plan (1) Acute GI bleeding: (2) Symptomatic anemia: This is a 77 year old male with significant PMH of HTN, HLD, Pre-DM2, ETOH use, LSS who presents to [facility] ED secondary to BRBPR x 3 episodes. Recently admitting and discharged 10/08-10/10/18 due to anemia and melena x 1 week. Hbg at discharge 7.7. Underwent EGD (normal) and colonoscopy ( 4 polyps removed and small/large diverticula). Presents today with hbg 6.8 and 7.1 on recheck with BRBPR x 3 this early a.m. Hemodynamically unstable upon presentation which improved with IVF resuscitation , BP 145/74 and HR 88 upon my examination. ? if secondary to polypectomy vs diverticular bleed -med/surg tele -s/p 2 units PRBC -GI on board, Scope today -Serial H/H, Hb 8.4 currently -General Surgery on case (3) HTN (hypertension): -blood pressure on lower side upon admission given anemia, Now normal -continue metoprolol -monitor close -Transient Episode of AFIB c RVR, convert spontaneously back c BBlocker (4) Dyslipidemia: -hold statin for now (5) Prediabetes: -A1C 5.5 02/2018 -hold metformin, implement novolog per protocol (6) Alcohol use: -drinks ~ 20 yeunglings/week, last drink 2 weeks ago -last drink 2 weeks ago -no s/sx of withdrawl most recent admission -place on at risk protocol AWSS (7) DVT prophylaxis: -Replete K -SCDs given symptomatic anemia and acute GIB Disposition: D/C to home when able, likely 10/14 Follow up: Dr Medrano and Dr Tapia upon discharge Subjective ROS-No Headache, No Visual Changes, No Fever, No Chills, No Neck Pain or Stiffness, No Chest Pain, No Palpitations, No SOB, No GAUTHIER, No Cough, No Sputum, No Wheezing, No Abdominal Pain, No Diarrhea, No Hematemesis, No Hemoptysis, No Unexpected Weight Loss, No Flank pain, No Melena, + Scant Hematochezia this morning, No Frequency, No Urgency, No Burning, No Hematuria, No Rashes, No Diaphoresis. Appetite is Normal Physical Exam Gen-AAO x 3, NAD, Afebrile, Obese, not anxious today Head-NCAT, EOMI, PERRLA, Anicteric Sclera, No Posterior Pharyngeal Erythema Neck-Supple, No JVD, No Thyromegaly, No Masses, No LAD, No Bruits Lungs-Clear to Auscultation Bilaterally, No Rales, No Rhonchi, No Wheezing, No Crepitus Chest-No S4, +S1, +S2, No S3, No Murmurs, No Rubs, No Gallops, No Ectopy Abdomen-Soft, Bowel Sounds Present, Non Tender, Non Distended, No Hepatomegaly, No Splenomegaly, No Palpable Masses, No Rebound, No Rigidity, No Guarding Musculoskeletal-Full Range of Motion Bilaterally, No CVAT Extremities-No Cyanosis, No Clubbing, No Edema Nuero-Cranial Nerves II-XII grossly intact, Motor WNL, DTRs WNL, Strength WNL, No Focal Psych-Normal Mood Physical Exam 2 Vital Signs (Past 24 Hours): Last Vital Signs Temp 36.8 C 10/12/18 07:08 Pulse 79 10/12/18 07:08 Resp 18 10/12/18 07:08 BP 126/57 L 10/12/18 07:08 Pulse Ox 98 10/12/18 07:08 Results & Data Laboratory Results Current Diagnoses Anemia, unspecified (10/11/18) Hyperlipidemia, unspecified (10/11/18) Essential (primary) hypertension (10/11/18) Gastrointestinal hemorrhage, unspecified (10/11/18) Prediabetes (10/11/18) Other specified health status (10/11/18) Allergies No Known Allergies Allergy (Unverified 10/11/18 09:49) Height/Weight/Isolation Height 5 ft 10 in Weight 115.1 kg Chemistry 10/11/18 10/12/18 09:45 07:03 Sodium 137 135 L Potassium 4.5 D 3.2 L D Chloride 107 100 Carbon Dioxide 22 26 Anion Gap 8.0 9.0 BUN 9 9 Creatinine 1.11 1.10 Glucose 136 H 90 _ (1) HTN (hypertension) Hypertension type: essential hypertension Qualified Code(s): I10 - Essential (primary) hypertension
[2018-10-12] MEDS: CEROVITE ADV FORMULA TAB PO SCH (12:43)
[2018-10-12] MEDS: METOPROLOL SUCC 50MG EXT REL TAB PO SCH (12:44)
[2018-10-12] MEDS: ACETAMINOPHEN 500 MG TAB PO SCH ×2 (12:48→21:57)
--- NOTE | 2018-10-12 13:03 | Progress Note ---
DATE: 10/12/2018 HISTORY OF PRESENT ILLNESS: The patient did well overnight. He has had no signs of active bleeding. He was transfused and has no abdominal pain. He had a colonoscopy prep yesterday in case he needed a repeat colonoscopy. He has no complaints and feels well. PHYSICAL EXAMINATION: VITAL SIGNS: His most recent blood pressure is 124/72, pulse is 62, temperature is 37.1 centigrade. SKIN: Anicteric. EYES: Show anicteric sclerae. MOUTH: Clear lesions. CHEST: Clear. HEART: Regular. ABDOMEN: Benign with good bowel sounds. There is no rebound tenderness or masses. EXTREMITIES: Warm with good distal pulses. NEUROLOGIC: He is alert and oriented x3 and grossly intact. LABORATORIES: Most recent CBC is 8.4 and it has been stable in the 8 range since yesterday. IMPRESSION AND PLAN: Gastrointestinal bleeding, possibly related to diverticular bleeding or post polypectomy bleeding that seems to have stabilized and he has no signs of active bleeding at this point. I do not think a colonoscopy would be beneficial. I would put him at increased risk of another procedure and sedation. I would put him on clears and see how he does following his hemoglobin. I would not advance his diet until tomorrow if he remains stable only. I have discussed this with the patient and his at the bedside.
[2018-10-12 13:43] LABS: Hematocrit (blood only) 24.6 % (42-52); Hemoglobin 8.4 g/dL (14.0-18.0)
--- NOTE | 2018-10-12 14:48 | Cardiology Progress Note ---
Date of Service October 12, 2018 Assessment & Plan (1) PAF (paroxysmal atrial fibrillation): asymptomatic resolved with IV metoprolol PO metoprolol resumed without recurrence not an unexpected rhythm given clinic context obviously, not an anticoagulation candidate currently nor does his short run require anticoagulation at this time (2) Acute GI bleeding: being managed by primary team and GI Subjective Pt seen and examined, seated on bed eating lunch. Denies cp, sob, palpitations, lightheadedness or dizziness. Tele reviewed: sinus rhythm with short run of afib overnight. Review of Systems All systems reviewed & are unremarkable except as noted in HPI & below Physical Exam 2 Vital Signs (Past 24 Hours): Last Vital Signs Temp 37.1 C 10/12/18 11:17 Pulse 62 10/12/18 11:17 Resp 18 10/12/18 11:17 BP 124/72 10/12/18 11:17 Pulse Ox 94 10/12/18 11:17 Physical Exam: General: Awake, alert and oriented x 3. No acute distress. HEENT: Normocephalic, atraumatic. Pupils equal, round and reactive to light and accommodation. Extraocular muscles are intact. Anicteric sclera. Moist mucous membranes. Neck: No JVD. No bruit. Cardiovascular: Regular. Positive S-4. Normal S-1 and S-2. No S-3. No murmurs or rubs. Pulmonary: Clear to auscultation B/L. No rales, rhonchi or wheezing Abdomen: Bowel sounds x 4, soft. No rebound, guarding or tenderness. No organomegaly. Extremities: No clubbing, cyanosis or edema. +2 pedal pulses bilaterally. Skin: Warm and dry.
--- NOTE | 2018-10-12 15:13 | Surgery Progress Note ---
Date of Service October 12, 2018 Assessment & Plan (1) Acute GI bleeding: Resolved H&H stable no abdominal pain vitals stable Plan: No acute surgical intervention required at this time Continue medical management Our services signing off, please call with questions or concerns Dr. Anthony has seen and examined pt, agrees with above Subjective "feeling great" no abdominal pain bowel movements without any rectal bleeding or blood Physical Exam 2 Vital Signs (Past 24 Hours): Last Vital Signs Temp 37.1 C 10/12/18 11:17 Pulse 62 10/12/18 11:17 Resp 18 10/12/18 11:17 BP 124/72 10/12/18 11:17 Pulse Ox 94 10/12/18 11:17 Constitutional: WD/WN, vitals as above + morbidly obese; no acute distress and not ill appearing Respiratory: no respiratory distress Gastrointestinal (Abdomen): Inspection/Auscultation: abdomen not distended Percussion/Palpation: abdomen soft; abdomen nontender, no guarding and abdomen not rigid Skin: no rashes, warm and dry Psychiatric: A+Ox3, euthymic affect Results & Data Laboratory Results 10/12/18 10/12/18 10/12/18 Range/Units 13:29 11:31 07:41 Hgb 8.4 L (14.0-18.0) g/dL Hct 24.6 L (42-52) % Sodium (136-145) mmol/L Potassium (3.5-5.1) mmol/L Chloride (98-107) mmol/L Carbon Dioxide (21-32) mmol/L Anion Gap (3-11) BUN (7-18) mg/dl Creatinine (0.6-1.4) mg/dl Est Cr Clr Drug Dosing ml/min Est GFR ( Amer) Est GFR (Non-Af Amer) BUN/Creatinine Ratio (10-20) Glucose (70-99) mg/dl POC Glucose 120 H 111 H (70-99) Calcium (8.5-10.1) mg/dl Blood Type Antibody Screen Crossmatch 10/12/18 10/12/18 10/11/18 Range/Units 07:03 07:03 21:21 Hgb 8.4 L 8.5 L (14.0-18.0) g/dL Hct 25.1 L 24.9 L (42-52) % Sodium 135 L (136-145) mmol/L Potassium 3.2 L D (3.5-5.1) mmol/L Chloride 100 (98-107) mmol/L Carbon Dioxide 26 (21-32) mmol/L Anion Gap 9.0 (3-11) BUN 9 (7-18) mg/dl Creatinine 1.10 (0.6-1.4) mg/dl Est Cr Clr Drug Dosing 69.2 ml/min Est GFR ( Amer) 73.6 Est GFR (Non-Af Amer) 63.5 BUN/Creatinine Ratio 7.9 L (10-20) Glucose 90 (70-99) mg/dl POC Glucose (70-99) Calcium 7.8 L (8.5-10.1) mg/dl Blood Type Antibody Screen Crossmatch 10/11/18 10/11/18 10/11/18 Range/Units 20:16 16:57 09:45 Hgb (14.0-18.0) g/dL Hct (42-52) % Sodium (136-145) mmol/L Potassium (3.5-5.1) mmol/L Chloride (98-107) mmol/L Carbon Dioxide (21-32) mmol/L Anion Gap (3-11) BUN (7-18) mg/dl Creatinine (0.6-1.4) mg/dl Est Cr Clr Drug Dosing ml/min Est GFR ( Amer) Est GFR (Non-Af Amer) BUN/Creatinine Ratio (10-20) Glucose (70-99) mg/dl POC Glucose 113 H 109 H (70-99) Calcium (8.5-10.1) mg/dl Blood Type O Positive Antibody Screen NEGATIVE Crossmatch See Detail
[2018-10-12] MEDS: POTASSIUM CHLORIDE 20 MEQ TABCR PO SCH (21:58)
[2018-10-12] MEDS: CYANOCOBALAMIN 500 MCG TABLET (VITAMIN B-12) PO SCH (21:59)
[2018-10-13 05:10] LABS: Hematocrit (blood only) 24.5 % (42-52); Hemoglobin 8.2 g/dL (14.0-18.0); Mean Corpuscular Hgb Conc 33.5 g/dL (32-36); Mean Corpuscular Volume 97.2 fL (80-100); Mean Platelet Volume 9.9 fL (7.4-10.4); Platelet Count 212 K/uL (130-400); RDW Coefficient of Variation 15.6 % (11.5-14.5); RDW Standard Deviation 55.2 fL (36.4-46.3); Red Blood Count 2.52 M/uL (4.7-6.1)
[2018-10-13 05:46] LABS: BUN Creatinine Ratio 6.6 (10-20); Calcium 8.1 mg/dl (8.5-10.1); Creatinine Clr Calc Pharmacy 74.6 ml/min; Est GFR (African American) 80.6; Est GFR (Non-African American) 69.6; Potassium 3.4 mmol/L (3.5-5.1)
[2018-10-13] MEDS: GABAPENTIN 600 MG TAB PO SCH ×2 (06:30→17:27)
[2018-10-13] MEDS: POTASSIUM CHLORIDE 20 MEQ TABCR PO SCH ×2 (08:29→20:30)
[2018-10-13] MEDS: METOPROLOL SUCC 50MG EXT REL TAB PO SCH (08:30)
[2018-10-13] MEDS: CEROVITE ADV FORMULA TAB PO SCH (08:31)
[2018-10-13] MEDS: ACETAMINOPHEN 500 MG TAB PO SCH ×2 (08:33→20:30)
[2018-10-13] MEDS: INSULIN ASPART 100 UNITS/ML 3 ML PEN SC SCH ×4 (08:35→20:32)
--- NOTE | 2018-10-13 10:31 | Hospitalist Progress Note ---
Date of Service October 13, 2018 Assessment & Plan (1) Acute GI bleeding: Recurrent GI bleed, was discharged 1 day prior to this admission (2) Symptomatic anemia: This is a 77 year old male with significant PMH of HTN, HLD, Pre-DM2, ETOH use, LSS who presents to [facility] ED secondary to BRBPR x 3 episodes. Recently admitting and discharged 10/08-10/10/18 due to anemia and melena x 1 week. Hbg at discharge 7.7. Underwent EGD (normal) and colonoscopy ( 4 polyps removed and small/large diverticula). Presents today with hbg 6.8 and 7.1 on recheck with BRBPR x 3 this early a.m. Hemodynamically unstable upon presentation which improved with IVF resuscitation , BP 145/74 and HR 88 upon my examination. ? if secondary to polypectomy vs diverticular bleed -med/surg tele -s/p 2 units PRBC -GI on board, elected to monitor hemoglobin in lieu of scoping yesterday -Serial H/H, Hb 8.4 yesterday, hemoglobin 8.2 today -General Surgery on case as well (3) HTN (hypertension): -blood pressure Normal -continue metoprolol -monitor close -Transient Episode of AFIB c RVR, convert spontaneously back c BBlocker (4) Dyslipidemia: -hold statin for now (5) Prediabetes: -A1C 5.5 02/2018 -hold metformin, implement novolog per protocol (6) Alcohol use: -drinks ~ 20 yeunglings/week, last drink 2 weeks ago -last drink 2 weeks ago -no s/sx of withdrawl most recent admission -place on at risk protocol AWSS (7) DVT prophylaxis: -Replete K -SCDs given symptomatic anemia and acute GIB Disposition: D/C to home when able, likely 10/14 Follow up: Dr Medrano and Dr Tapia upon discharge Subjective ROS-No Headache, No Visual Changes, No Fever, No Chills, No Neck Pain or Stiffness, No Chest Pain, No Palpitations, No SOB, No GAUTHIER, No Cough, No Sputum, No Wheezing, No Abdominal Pain, No Diarrhea, No Hematemesis, No Hemoptysis, No Unexpected Weight Loss, No Flank pain, No Melena, No Hematochezia this morning, No Frequency, No Urgency, No Burning, No Hematuria, No Rashes, No Diaphoresis. Appetite is Normal Physical Exam Gen-AAO x 3, NAD, Afebrile, Obese, Calm Head-NCAT, EOMI, PERRLA, Anicteric Sclera, No Posterior Pharyngeal Erythema Neck-Supple, No JVD, No Thyromegaly, No Masses, No LAD, No Bruits Lungs-Clear to Auscultation Bilaterally, No Rales, No Rhonchi, No Wheezing, No Crepitus Chest-No S4, +S1, +S2, No S3, No Murmurs, No Rubs, No Gallops, No Ectopy Abdomen-Soft, Bowel Sounds Present, Non Tender, Non Distended, No Hepatomegaly, No Splenomegaly, No Palpable Masses, No Rebound, No Rigidity, No Guarding Musculoskeletal-Full Range of Motion Bilaterally, No CVAT Extremities-No Cyanosis, No Clubbing, No Edema Nuero-Cranial Nerves II-XII grossly intact, Motor WNL, DTRs WNL, Strength WNL, No Focal Psych-Normal Mood Physical Exam 2 Vital Signs (Past 24 Hours): Last Vital Signs Temp 36.7 C 10/13/18 07:19 Pulse 60 10/13/18 07:19 Resp 18 10/13/18 07:19 BP 128/66 10/13/18 07:19 Pulse Ox 99 10/13/18 07:19 Results & Data Laboratory Results Current Diagnoses Anemia, unspecified (10/11/18) Hyperlipidemia, unspecified (10/11/18) Essential (primary) hypertension (10/11/18) Paroxysmal atrial fibrillation (10/11/18) Gastrointestinal hemorrhage, unspecified (10/11/18) Prediabetes (10/11/18) Other specified health status (10/11/18) Allergies No Known Allergies Allergy (Unverified 10/11/18 09:49) Height/Weight/Isolation Height 5 ft 10 in Weight 113.7 kg Chemistry 10/11/18 10/12/18 10/13/18 09:45 07:03 04:54 Sodium 137 135 L 135 L Potassium 4.5 D 3.2 L D 3.4 L Chloride 107 100 102 Carbon Dioxide 22 26 28 Anion Gap 8.0 9.0 5.0 BUN 9 9 7 Creatinine 1.11 1.10 1.02 Glucose 136 H 90 92 _ (1) HTN (hypertension) Hypertension type: essential hypertension Qualified Code(s): I10 - Essential (primary) hypertension
--- NOTE | 2018-10-13 10:59 | Surgery Progress Note ---
Date of Service October 13, 2018 Assessment & Plan (1) Acute GI bleeding: Feeling well Hematochezia has resolved H&H is stable No indication for surgical intervention at this time Present on Admission?: Yes Subjective Denies abdominal pain Had liquid bowel movement with brown material in the water. He did not see blood or melanotic stool Tolerating regular diet Physical Exam 2 Vital Signs (Past 24 Hours): Last Vital Signs Temp 36.7 C 10/13/18 07:19 Pulse 60 10/13/18 07:19 Resp 18 10/13/18 07:19 BP 128/66 10/13/18 07:19 Pulse Ox 99 10/13/18 07:19 Gastrointestinal (Abdomen): Inspection/Auscultation: normal bowel sounds; abdomen not distended Percussion/Palpation: abdomen soft; abdomen nontender Results & Data Laboratory Results 10/13/18 10/13/18 10/13/18 Range/Units 07:42 04:54 04:54 WBC 6.60 (4.8-10.8) K/uL RBC 2.52 L (4.7-6.1) M/uL Hgb 8.2 L (14.0-18.0) g/dL Hct 24.5 L (42-52) % MCV 97.2 (80-100) fL MCH 32.5 (25-34) pg MCHC 33.5 (32-36) g/dL RDW Std Deviation 55.2 H (36.4-46.3) fL RDW Coeff of Steven 15.6 H (11.5-14.5) % Plt Count 212 (130-400) K/uL MPV 9.9 (7.4-10.4) fL Sodium 135 L (136-145) mmol/L Potassium 3.4 L (3.5-5.1) mmol/L Chloride 102 (98-107) mmol/L Carbon Dioxide 28 (21-32) mmol/L Anion Gap 5.0 (3-11) BUN 7 (7-18) mg/dl Creatinine 1.02 (0.6-1.4) mg/dl Est Cr Clr Drug Dosing 74.6 ml/min Est GFR ( Amer) 80.6 Est GFR (Non-Af Amer) 69.6 BUN/Creatinine Ratio 6.6 L (10-20) Glucose 92 (70-99) mg/dl POC Glucose 97 (70-99) Calcium 8.1 L (8.5-10.1) mg/dl Crossmatch 10/12/18 10/12/18 10/12/18 Range/Units 20:19 16:27 13:29 WBC (4.8-10.8) K/uL RBC (4.7-6.1) M/uL Hgb 8.4 L (14.0-18.0) g/dL Hct 24.6 L (42-52) % MCV (80-100) fL MCH (25-34) pg MCHC (32-36) g/dL RDW Std Deviation (36.4-46.3) fL RDW Coeff of Steven (11.5-14.5) % Plt Count (130-400) K/uL MPV (7.4-10.4) fL Sodium (136-145) mmol/L Potassium (3.5-5.1) mmol/L Chloride (98-107) mmol/L Carbon Dioxide (21-32) mmol/L Anion Gap (3-11) BUN (7-18) mg/dl Creatinine (0.6-1.4) mg/dl Est Cr Clr Drug Dosing ml/min Est GFR ( Amer) Est GFR (Non-Af Amer) BUN/Creatinine Ratio (10-20) Glucose (70-99) mg/dl POC Glucose 108 H 111 H (70-99) Calcium (8.5-10.1) mg/dl Crossmatch 10/12/18 10/11/18 Range/Units 11:31 09:45 WBC (4.8-10.8) K/uL RBC (4.7-6.1) M/uL Hgb (14.0-18.0) g/dL Hct (42-52) % MCV (80-100) fL MCH (25-34) pg MCHC (32-36) g/dL RDW Std Deviation (36.4-46.3) fL RDW Coeff of Steven (11.5-14.5) % Plt Count (130-400) K/uL MPV (7.4-10.4) fL Sodium (136-145) mmol/L Potassium (3.5-5.1) mmol/L Chloride (98-107) mmol/L Carbon Dioxide (21-32) mmol/L Anion Gap (3-11) BUN (7-18) mg/dl Creatinine (0.6-1.4) mg/dl Est Cr Clr Drug Dosing ml/min Est GFR ( Amer) Est GFR (Non-Af Amer) BUN/Creatinine Ratio (10-20) Glucose (70-99) mg/dl POC Glucose 120 H (70-99) Calcium (8.5-10.1) mg/dl Crossmatch See Detail
--- NOTE | 2018-10-13 12:47 | Progress Note ---
DATE: 10/13/2018 GASTROENTEROLOGY PROGRESS NOTE HISTORY OF PRESENT ILLNESS: Mr. Morrow did extremely well overnight. He has had no evidence of bleeding. He is eating a regular diet and would like to go home. His hemoglobin has remained stable in the low 8 range. PHYSICAL EXAMINATION: VITAL SIGNS: During this visit, his blood pressure is 99/59, pulse is 56, temperature is 36.5 centigrade. SKIN: Anicteric. EYES: Show anicteric sclerae. CHEST: Clear. HEART: Slightly bradycardic, but regular. ABDOMEN: Benign with good bowel sounds and nontender. NEUROLOGIC: He is alert and oriented x3. IMPRESSION AND PLAN: From a gastrointestinal standpoint, I think the patient can go home and follow up with his regular providers as an outpatient. I discussed this with the at the bedside as well.
[2018-10-13 16:52] LABS: Hematocrit (blood only) 23.9 % (42-52); Hemoglobin 7.8 g/dL (14.0-18.0)
[2018-10-13] MEDS: CYANOCOBALAMIN 500 MCG TABLET (VITAMIN B-12) PO SCH (20:28)
[2018-10-13] MEDS ORDERED: Nursing to Pharmacy Communication ONE (22:22)
[2018-10-14 06:40] LABS: Hematocrit (blood only) 23.5 % (42-52); Hemoglobin 7.6 g/dL (14.0-18.0); Mean Corpuscular Hgb Conc 32.3 g/dL (32-36); Mean Corpuscular Volume 98.3 fL (80-100); Mean Platelet Volume 10.2 fL (7.4-10.4); Platelet Count 209 K/uL (130-400); RDW Coefficient of Variation 15.5 % (11.5-14.5); RDW Standard Deviation 55.3 fL (36.4-46.3); Red Blood Count 2.39 M/uL (4.7-6.1); White Blood Count 5.22 K/uL (4.8-10.8)
[2018-10-14 07:10] LABS: BUN Creatinine Ratio 7.3 (10-20); Calcium 8.4 mg/dl (8.5-10.1); Creatinine Clr Calc Pharmacy 75.5 ml/min; Est GFR (African American) 82.6; Est GFR (Non-African American) 71.3; Potassium 3.8 mmol/L (3.5-5.1)
[2018-10-14 07:27] LABS: Hematocrit (blood only) 24.3 % (42-52)
[2018-10-14] MEDS: POTASSIUM CHLORIDE 20 MEQ TABCR PO SCH (09:19)
[2018-10-14] MEDS: METOPROLOL SUCC 50MG EXT REL TAB PO SCH (09:19)
[2018-10-14] MEDS: CEROVITE ADV FORMULA TAB PO SCH (09:19)
[2018-10-14] MEDS: INSULIN ASPART 100 UNITS/ML 3 ML PEN SC SCH ×3 (09:27→17:05)
[2018-10-14] MEDS: ACETAMINOPHEN 500 MG TAB PO SCH (09:38)
[2018-10-14] MEDS: GABAPENTIN 600 MG TAB PO SCH (09:52)
--- NOTE | 2018-10-14 11:40 | Hospitalist Progress Note ---
Date of Service October 14, 2018 Assessment & Plan (1) Acute GI bleeding: HPI-This is a 77 year old male with significant PMH of HTN, HLD, Pre-DM2, ETOH use, LSS who presents to [facility] ED secondary to BRBPR x 3 episodes. Recently admitting and discharged 10/08-10/10/18 due to anemia and melena x 1 week. Hbg at discharge 7.7. Underwent EGD (normal) and colonoscopy ( 4 polyps removed and small/large diverticula). Presents 10/11 with hbg 6.8 and 7.1 on recheck with BRBPR x 3 in the early a.m. Hemodynamically unstable upon presentation which improved with IVF resuscitation, BP 145/74 and HR 88. Hb continues to decline, Surgery and GI on Board (2) Symptomatic anemia: -s/p 2 units PRBC -GI and GS on board, GI elected to monitor hemoglobin in lieu of rescoping -Serial H/H, Hb 8.4, 8.2, now 7.8, 7.6, 8.o If Hb rebounds will send home (3) HTN (hypertension): -blood pressure Normal -continue metoprolol -monitor close -Transient Episode of AFIB c RVR, converted spontaneously back c BBlocker (4) Dyslipidemia: -hold statin for now (5) Prediabetes: -A1C 5.5 02/2018 -hold metformin, implement novolog per protocol (6) Alcohol use: -drinks ~ 20 yeunglings/week, last drink 2 weeks ago -last drink 2 weeks ago -no s/sx of withdrawl most recent admission -place on at risk protocol AWSS (7) DVT prophylaxis: -Replete K -SCDs given symptomatic anemia and acute GIB Disposition: D/C to home when able, likely 10/15 Follow up: Dr Medrano and Dr Tapia upon discharge Subjective ROS-No Headache, No Visual Changes, No Fever, No Chills, No Neck Pain or Stiffness, No Chest Pain, No Palpitations, No SOB, No GAUTHIER, No Cough, No Sputum, No Wheezing, No Abdominal Pain, No Diarrhea, No Hematemesis, No Hemoptysis, No Unexpected Weight Loss, No Flank pain, No Melena, No Hematochezia this morning, No Frequency, No Urgency, No Burning, No Hematuria, No Rashes, No Diaphoresis. Appetite is Normal Physical Exam Gen-AAO x 3, NAD, Afebrile, Obese, Calm Head-NCAT, EOMI, PERRLA, Anicteric Sclera, No Posterior Pharyngeal Erythema Neck-Supple, No JVD, No Thyromegaly, No Masses, No LAD, No Bruits Lungs-Clear to Auscultation Bilaterally, No Rales, No Rhonchi, No Wheezing, No Crepitus Chest-No S4, +S1, +S2, No S3, No Murmurs, No Rubs, No Gallops, No Ectopy Abdomen-Soft, Bowel Sounds Present, Non Tender, Non Distended, No Hepatomegaly, No Splenomegaly, No Palpable Masses, No Rebound, No Rigidity, No Guarding Musculoskeletal-Full Range of Motion Bilaterally, No CVAT Extremities-No Cyanosis, No Clubbing, No Edema Nuero-Cranial Nerves II-XII grossly intact, Motor WNL, DTRs WNL, Strength WNL, No Focal Psych-Normal Mood Physical Exam 2 Vital Signs (Past 24 Hours): Last Vital Signs Temp 36.8 C 10/14/18 11:23 Pulse 55 L 10/14/18 11:23 Resp 18 10/14/18 11:23 BP 130/70 10/14/18 11:23 Pulse Ox 94 10/14/18 11:23 Results & Data Laboratory Results Current Diagnoses Anemia, unspecified (10/11/18) Hyperlipidemia, unspecified (10/11/18) Essential (primary) hypertension (10/11/18) Paroxysmal atrial fibrillation (10/11/18) Gastrointestinal hemorrhage, unspecified (10/11/18) Prediabetes (10/11/18) Other specified health status (10/11/18) Allergies No Known Allergies Allergy (Unverified 10/11/18 09:49) Height/Weight/Isolation Height 5 ft 10 in Weight 113.3 kg Chemistry 10/13/18 10/14/18 04:54 06:09 Sodium 135 L 137 Potassium 3.4 L 3.8 Chloride 102 106 Carbon Dioxide 28 28 Anion Gap 5.0 3.0 BUN 7 7 Creatinine 1.02 1.00 Glucose 92 91 _ (1) HTN (hypertension) Hypertension type: essential hypertension Qualified Code(s): I10 - Essential (primary) hypertension
[2018-10-14 15:08] LABS: Hemoglobin 8.2 g/dL (14.0-18.0)
--- NOTE | 2018-10-14 15:53 | Surgery Progress Note ---
Date of Service October 14, 2018 Assessment & Plan (1) Acute GI bleeding: Hematochezia has resolved H&H has remained low, 7.6 this morning recheck 8.0 --> 8.2 this afternoon Hemodynamically stable feeling well no abdominal pain Plan: No indication for surgical intervention at this time continue medical management monitor H&H Dr. Anthony has seen and examined pt, agrees with above Subjective feeling well no abdominal pain no rectal bleeding yesterday had small formed brown bowel movements without any blood Physical Exam 2 Vital Signs (Past 24 Hours): Last Vital Signs Temp 36.9 C 10/14/18 14:29 Pulse 54 L 10/14/18 14:29 Resp 18 10/14/18 14:29 BP 108/63 10/14/18 14:29 Pulse Ox 96 10/14/18 14:29 Constitutional: WD/WN, vitals as above + obese; no acute distress Respiratory: no respiratory distress Gastrointestinal (Abdomen): Inspection/Auscultation: abdomen normal to inspection; abdomen not distended Percussion/Palpation: abdomen soft; abdomen nontender, no guarding and abdomen not rigid Skin: no rashes, warm and dry Psychiatric: A+Ox3, euthymic affect Results & Data Laboratory Results 10/14/18 10/14/18 10/14/18 Range/Units 14:38 11: 07:22 WBC (4.8-10.8) K/uL RBC (4.7-6.1) M/uL Hgb 8.2 L (14.0-18.0) g/dL Hct 25.0 L (42-52) % MCV (80-100) fL MCH (25-34) pg MCHC (32-36) g/dL RDW Std Deviation (36.4-46.3) fL RDW Coeff of Steven (11.5-14.5) % Plt Count (130-400) K/uL MPV (7.4-10.4) fL Sodium (136-145) mmol/L Potassium (3.5-5.1) mmol/L Chloride (98-107) mmol/L Carbon Dioxide (21-32) mmol/L Anion Gap (3-11) BUN (7-18) mg/dl Creatinine (0.6-1.4) mg/dl Est Cr Clr Drug Dosing ml/min Est GFR ( Amer) Est GFR (Non-Af Amer) BUN/Creatinine Ratio (10-20) Glucose (70-99) mg/dl POC Glucose 117 H 106 H (70-99) Calcium (8.5-10.1) mg/dl 10/14/18 10/14/18 10/14/18 Range/Units 07:13 06:09 06:09 WBC 5.22 (4.8-10.8) K/uL RBC 2.39 L (4.7-6.1) M/uL Hgb 8.0 L 7.6 L (14.0-18.0) g/dL Hct 24.3 L 23.5 L (42-52) % MCV 98.3 (80-100) fL MCH 31.8 (25-34) pg MCHC 32.3 (32-36) g/dL RDW Std Deviation 55.3 H (36.4-46.3) fL RDW Coeff of Steven 15.5 H (11.5-14.5) % Plt Count 209 (130-400) K/uL MPV 10.2 (7.4-10.4) fL Sodium 137 (136-145) mmol/L Potassium 3.8 (3.5-5.1) mmol/L Chloride 106 (98-107) mmol/L Carbon Dioxide 28 (21-32) mmol/L Anion Gap 3.0 (3-11) BUN 7 (7-18) mg/dl Creatinine 1.00 (0.6-1.4) mg/dl Est Cr Clr Drug Dosing 75.5 ml/min Est GFR ( Amer) 82.6 Est GFR (Non-Af Amer) 71.3 BUN/Creatinine Ratio 7.3 L (10-20) Glucose 91 (70-99) mg/dl POC Glucose (70-99) Calcium 8.4 L (8.5-10.1) mg/dl 10/13/18 10/13/18 10/13/18 Range/Units 20:11 16:30 16:18 WBC (4.8-10.8) K/uL RBC (4.7-6.1) M/uL Hgb 7.8 L (14.0-18.0) g/dL Hct 23.9 L (42-52) % MCV (80-100) fL MCH (25-34) pg MCHC (32-36) g/dL RDW Std Deviation (36.4-46.3) fL RDW Coeff of Steven (11.5-14.5) % Plt Count (130-400) K/uL MPV (7.4-10.4) fL Sodium (136-145) mmol/L Potassium (3.5-5.1) mmol/L Chloride (98-107) mmol/L Carbon Dioxide (21-32) mmol/L Anion Gap (3-11) BUN (7-18) mg/dl Creatinine (0.6-1.4) mg/dl Est Cr Clr Drug Dosing ml/min Est GFR ( Amer) Est GFR (Non-Af Amer) BUN/Creatinine Ratio (10-20) Glucose (70-99) mg/dl POC Glucose 123 H 126 H (70-99) Calcium (8.5-10.1) mg/dl
[2018-10-14] MEDS ORDERED: COUGH DROP (SUGAR FREE) LOZ 24 LOZ/1 BOX BUCCAL STA (16:14)
[2018-10-14] MEDS ORDERED: COUGH DROP (SUGAR FREE) LOZ 24 LOZ/1 BOX BUCCAL ONE (16:18)
--- NOTE | 2018-10-14 16:45 | Discharge Summary ---
Date of Service October 14, 2018 Admission HPI Per Admitting Provider This is a 77 year old male with significant PMH of HTN, HLD, Pre-DM2, ETOH use, LSS who presents to [facility] ED secondary to BRBPR x 3. Unfortunately patient was admitted to [facility] 10/08/18 and discharged 10/10/18 secondary to black stools and lightheadedness x 6 days. Hgb was 9.6. He had an EGD 10/09 which was negative and colonoscopy on 10/10 which revealed polyp x 4 with removal by snare and cautery and small/large divertula. Upon discharge hbg was 7.7. He did not receive any blood products at this time. He was discharged home yesterday and felt very, "nervous." He was able to sleep and slept well when he was awoken x 3 with a BM, loose watery. BM had BRBPR in toilet bowl and on undergarments, even notes dark red clots. He complains of feeling dizzy, lightheaded and SOB first thing this a.m. Denies f/c/s, chest pain, palpitations, wheezing, n/v , abdominal pain. is at bedside. Admission Exam Per Admitting Provider Constitutional: WD/WN, vitals as above + morbidly obese Eyes: PERRL, conjunctivae normal, anicteric sclerae ENMT: external ear and nose normal, oropharynx normal Mouth: + oropharynx abnormality (thickened uvula with erythema at base) Throat: uvula midline and + uvular edema Neck: trachea midline, no thyromegaly Respiratory: normal respiratory effort, lungs clear to auscultation Cardiovascular: Rate/Rhythm: regular rate and regular rhythm Heart Sounds: + murmur (2/6 cardiac base KATIE) Extremities: + edema (+1 pretibial edema , pedal pulse +2 and equal) Gastrointestinal (Abdomen): normal bowel sounds, soft, nontender, no hepatosplenomegaly Inspection/Auscultation: + visible herniation (umbilical ) + Obese Musculoskeletal: no cyanosis or clubbing, extremities motor strength 5/5 Skin: no rashes, warm and dry Neurologic: CN's II-XI intact bilaterally, moves all extremities and awake Psychiatric: A+Ox3, euthymic affect Principal Diagnosis GI Bleed AFIB-Now in NSR Symptomatic Anemia Alcohol Use Pre-Diabetes Hyperlipidemia HTN Lumbar Stenosis Discharge Exam ROS-No Headache, No Visual Changes, No Nausea, No Vomiting, No Fever, No Chills , No Neck Pain or Stiffness, No Chest Pain, No Palpitations, No SOB, No GAUTHIER, No Cough, No Sputum, No Wheezing, No Abdominal Pain, No Diarrhea, No Hematemesis, No Hemoptysis, No Unexpected Weight Loss, No Flank pain, No Melena, No Hematochezia, No Frequency, No Urgency, No Burning, No Hematuria, No Rashes, No Diaphoresis. Appetite is Normal Physical Exam Gen-AAO x 3, NAD, Afebrile Head-NCAT, EOMI, PERRLA, Anicteric Sclera, No Posterior Pharyngeal Erythema Neck-Supple, No JVD, No Thyromegaly, No Masses, No LAD, No Bruits Lungs-Clear to Auscultation Bilaterally, No Rales, No Rhonchi, No Wheezing, No Crepitus Chest-No S4, +S1, +S2, No S3, No Murmurs, No Rubs, No Gallops, No Ectopy Abdomen-Soft, Bowel Sounds Present, Non Tender, Non Distended, No Hepatomegaly, No Splenomegaly, No Palpable Masses, No Rebound, No Rigidity, No Guarding Musculoskeletal-Full Range of Motion Bilaterally, No CVAT Extremities-No Cyanosis, No Clubbing, No Edema Nuero-Cranial Nerves II-XII grossly intact, Motor WNL, DTRs WNL, Strength WNL, Non Focal Psych-Normal Mood Discharge Data Allergies Allergy/AdvReac Type Severity Reaction Status Date / Time No Known Allergies Allergy Unverified 10/11/18 09:49 Consultations 10/11/18 10:15 ED Decision to Admit Stat 10/11/18 13:21 Consult Gastroenterology Routine Consult General Surgery Routine 10/11/18 15:43 Consult Cardiology Routine Current Diagnoses Anemia, unspecified (10/11/18) Hyperlipidemia, unspecified (10/11/18) Essential (primary) hypertension (10/11/18) Paroxysmal atrial fibrillation (10/11/18) Gastrointestinal hemorrhage, unspecified (10/11/18) Prediabetes (10/11/18) Other specified health status (10/11/18) Allergies No Known Allergies Allergy (Unverified 10/11/18 09:49) Height/Weight/Isolation Height 5 ft 10 in Weight 113.3 kg Chemistry 10/13/18 10/14/18 04:54 06:09 Sodium 135 L 137 Potassium 3.4 L 3.8 Chloride 102 106 Carbon Dioxide 28 28 Anion Gap 5.0 3.0 BUN 7 7 Creatinine 1.02 1.00 Glucose 92 91 Hospital Course (1) Acute GI bleeding: HPI-This is a 77 year old male with significant PMH of HTN, HLD, Pre-DM2, ETOH use, LSS who presents to [facility] ED secondary to BRBPR x 3 episodes. Recently admitting and discharged 10/08-10/10/18 due to anemia and melena x 1 week. Hbg at discharge 7.7. Underwent EGD (normal) and colonoscopy ( 4 polyps removed and small/large diverticula). Presents 10/11 with hbg 6.8 and 7.1 on recheck with BRBPR x 3 in the early a.m. Hemodynamically unstable upon presentation which improved with IVF resuscitation, BP 145/74 and HR 88. Hb now rising and patient may go home (2) Symptomatic anemia: -s/p 2 units PRBC -GI and GS on board, GI elected to monitor hemoglobin in lieu of rescoping -Serial H/H, Hb 8.4, 8.2, now 7.8, 7.6, 8.0, Now 8.2 If Hb rebounds will send home-Hb rebouding so may DC home (3) HTN (hypertension): -blood pressure Normal -continue metoprolol -monitor close -Transient Episode of AFIB c RVR, converted spontaneously back c BBlocker (4) Dyslipidemia: -Resume statinon DC (5) Prediabetes: -A1C 5.5 02/2018 -Resume metformin, implement novolog per protocol (6) Alcohol use: -drinks ~ 20 yeunglings/week, last drink 2 weeks ago -last drink 2 weeks ago -no s/sx of withdrawl most recent admission (7) DVT prophylaxis: Disposition: D/C today Follow up: Dr Medrano and Dr Tapia upon discharge Total Time Total Time Spent Total Time Spent (In Minutes): 45 mins Total Time Includes: Examination of the Patient, Discharge Planning, Medication Reconciliation and Communication With Other Providers Discharge Plan Discharge Items Patient Disposition: Home - Self-Care Reason For Visit: GIB,SYMPTOMATIC ANEMIA Discharge Diagnosis: GI Bleed AFIB-Now in NSR Symptomatic Anemia Alcohol Use Pre-Diabetes Hyperlipidemia HTN Lumbar Stenosis Condition: Good Discharge Goals: Improve disease control and Improve function Activity: Resume your previous activity Lifting: Gradually increase as tolerated Bathing: No limitations Sexual Activity: When tolerated Exercise/Sports: Gradually increase as tolerated Driving/Machine Use: No limitations Weightbearing: Left weightbearing and Right weightbearing Non-emergency contact: Primary Care Provider and Insurance Office Supervisor Call non-emergency contact if: you have any medication questions Follow-up/Referrals: Kun Tapia [Physician] - (Call for first opening) Jerry Medrano [Primary Care Provider] - (Call for first opening or as per CM) Diet: Carb Consistent or DM2 and Heart Healthy Addtl Provider Instructions: Monitor H/H q week x 3 weeks Prescriptions: Continue atorvastatin [Lipitor] 40 mg tablet 40 mg PO HS RF: 0 cyanocobalamin (vitamin B-12) [Vitamin B-12] 1,000 mcg tablet 1,000 mcg PO HS RF: 0 vit A,C and N-pbbthz-nihigcej [Ocuvite with Lutein] 1,000 unit-200 mg-60 unit- 2 mg Tablet 1 tab PO QAM RF: 0 propylene glycol [Systane Balance] 0.6 % Drops 1 drp OPB QAM RF: 0 indapamide 2.5 mg tablet 2.5 mg PO QAM RF: 0 hydralazine 25 mg Tablet 25 mg PO BID RF: 0 acetaminophen [Tylenol Extra Strength] 500 mg Tablet 500 mg PO BID RF: 0 quinapril [Accupril] 40 mg tablet 40 mg PO QAM RF: 0 amlodipine [Norvasc] 10 mg tablet 10 mg PO QAM RF: 0 metoprolol succinate [Toprol XL] 200 mg tablet extended release 24 hr 200 mg PO QAM RF: 0 metformin 500 mg Tablet,Er Suleiman.Retention 24 Hr 500 mg PO PM RF: 0 Stand-Alone Forms: [facility] Discharge Orders: Discharge Order (Routine); Ordered 10/14/18 Ordered By: Jose A Iqbal Admission Data Admit Date/Time: 10/11/18 15:25 Attending Provider: Jose A Iqbal Admit Provider: Jose A Iqbal Primary Care Provider: Jerry Medrano Other Providers: Jose A Iqbal ; Galdino Anthony ; Kun Tapia ; Al Rick Service: Telemetry Other Pending Studies at Discharge: No
[2018-10-15] MEDS ORDERED: GABAPENTIN 600 MG TAB PO SCH (05:00)
== END 2018-10-14 18:11 | disposition home or self-care (01) | DRG 920 ==
LOC: ED 08:55 → 2W 08:55
DX: K91.840 Postprocedural hemorrhage of a digestive system organ or structure following a digestive system procedure; Z87.891 Personal history of nicotine dependence; R73.03 Prediabetes; I48.0 Paroxysmal atrial fibrillation; Z79.84 Long term (current) use of oral hypoglycemic drugs; Z79.899 Other long term (current) drug therapy; Z98.890 Other specified postprocedural states; K92.1 Melena; Z72.89 Other problems related to lifestyle; Z68.36 Body mass index [BMI] 36.0-36.9, adult; E78.5 Hyperlipidemia, unspecified; D64.9 Anemia, unspecified; I10 Essential (primary) hypertension; E66.01 Morbid (severe) obesity due to excess calories

== ENCOUNTER 2023-08-30 06:42 | Inpatient (IN) ==
--- OUTSIDE RECORDS SUMMARY | 2023-08-30 06:47 | External Medical Summary | Summary of Care ---
Author Name Unknown Organization [facility] Address [address] [place] [address] Phone [phone] Care Team Providers Care Director Of In Service Education Name Role Phone Mitchell ROMAN MD, Jerry Cerda Primary Care Provider [phone] Reason for Visit * Reason Onset Date Comments Advice 03/28/2023 Encounter Details Date Type Department Care Team Description 03/28/2023 Telephone Family Practice [facility] [place] [address] [facility] [place] [address] Jerry Medrano III, MD [address] [place] [address] Advice Allergies No known active allergiesdocumented as of this encounter (statuses as of 04/06/2023) Medications Medication Sig Dispensed Refills Start Date End Date Status Multiple Vitamins-Minerals (OCUVITE-LUTEIN) TABS Take 1 Tab by mouth daily. 0 Active Propylene Glycol 0.6 % Ophthalmic Solution Instill 1 Drop into both eyes in the morning. 0 Active Acetaminophen 500 MG Oral Tablet Take 1 Tablet by mouth every 6 hours as needed for Pain. 0 Active Cholecalciferol (VITAMIN D-3) 25 MCG (1000 UT) Capsule 1 Capsule at bedtime. 0 Active [facility] Vitamin B-12 1000 MCG Oral Tablet (vitamin b 12) TAKE 1 TABLET BY MOUTH EVERY DAY 100 Tablet 3 03/15/2022 Active Lisinopril 40 MG Oral Tablet Take 1 Tablet by mouth in the morning. 90 Tablet 3 09/20/2022 Active hydrALAZINE HCl 25 MG Oral Tablet (Apresoline)Indicati ons:HTN, goal below 150/90 TAKE 1 TABLET BY MOUTH TWICE A DAY 180 Tablet 1 10/10/2022 Active Meloxicam 7.5 MG Oral Tablet (Mobic)Indications:P rimary osteoarthritis of both hands Take 1 Tablet by mouth in the morning. for pain.. 90 Tablet 1 12/29/2022 Active Indapamide 2.5 MG Oral Tablet (Lozol) TAKE 1 TABLET BY MOUTH EVERY DAY 90 Tablet 2 01/02/2023 Active metFORMIN HCl ER 500 MG Oral Tablet Extended Release 24 Hour (Glucophage XR)Indications:Impai red fasting glucose TAKE 1 TABLET BY MOUTH EVERY DAY 90 Tablet 2 01/02/2023 Active Metoprolol Succinate ER 200 MG Oral Tablet Extended Release 24 HourIndications:HTN, goal below 140/90 TAKE 1 TABLET BY MOUTH EVERY DAY 90 Tablet 3 01/05/2023 Active Gabapentin 100 MG Oral Capsule (Neurontin) Take 1 Capsule by mouth in the morning and 1 Capsule at noon and 1 Capsule before bedtime. 90 Capsule 5 03/19/2023 Active amLODIPine Besylate 10 MG Oral Tablet (Norvasc) TAKE 1 TABLET BY MOUTH EVERY DAY 90 Tablet 2 04/13/2022 3 Discontinued Atorvastatin Calcium 40 MG Oral Tablet (Lipitor)Indications :Dyslipidemia, goal to be determined TAKE 1 TABLET BY MOUTH EVERY DAY 90 Tablet 1 10/02/2022 3 Discontinued documented as of this encounter (statuses as of 04/06/2023) Active Problems Problem Noted Date Prediabetes 07/17/2022 Overview: Per Prediabetes protocol Obesity, morbid (more than 100 lbs over ideal weight or BMI > 40) 12/29/2020 Esophageal obstruction 09/15/2019 PAF (paroxysmal atrial fibrillation) 08/2019 Dyslipidemia 07/17/2018 Lumbar spinal stenosis 09/01/2013 ADVANCE DIRECTIVE INFORMATION 01/06/2005 Overview: No, Advance Directive brochure offered , patient declined. HTN, goal below 140/90 documented as of this encounter (statuses as of 04/06/2023) Resolved Problems Problem Noted Date Resolved Date Anxiety state 09/15/2019 09/15/2019 Morbid obesity with body mas s index (BMI) of 40.0 to 44.9 in adult 10/21/2018 02/07/2019 Prediabetes 10/16/2017 07/15/2020 Overview: Per Prediabetes protocol #1 Body mass index (BMI) of 40.0 to 44.9 in adult 1 10/21/2018 Overview: Per Obesity protocol #1 HTN, goal below 150/90 07/21/2014 7 Obesity, morbid (more than 1 00 lbs over ideal weight or BMI > 40) 02/15/2010 01/30/2017 Overview: Per Obesity Protocol, #19 ICD-10 update of inactive term Chronic prostatitis 07/25/2014 Umbilical hernia 07/17/2018 SPRAIN LUMBOSACRAL 07/25/2014 documented as of this encounter (statuses as of 04/06/2023) Immunizations Name Administration Dates Next Due COVID-19 mRNA, LNP-s, No Pre serve, 2-Dose Series (Pfizer) 11/03/2020,10/13/2020 Influenza, Whole Virus 07/04/1999,1997,06/03/1997,06/03 PPD 03/21/2023 Pneumococcal Conjugate Vacc, 13 Valent (Prevnar) 01/27/2015 Pneumococcal Polysaccharide PPV23 (Pneumovax) 02/09/2017,07/21/2003 Seasonal Influenza, Quadriva lent Hd (Fluzone Hd) 07/01/2021 Seasonal Influenza, Quadriva lent, No Preserve, 6 Mons & Above, IM 05/18/2020,06/03/2018,05/24/2017 Seasonal Influenza, Quadriva lent, No Preserve, IM 05/30/2016,07/22/2015 Seasonal Influenza, Split, I IV3, With Preserve, Inj 05/20/2014,05/17/2013,05/23/2012,06/06,06/07/2010,09/10/2009,06/23/2008 ,06/04/2007,07/04/2006,06/17/2005,07/04 Seasonal Influenza, Trivalen t, Adjuvanted, 65+ yrs 06/27/2019 TD - Tetanus/Diptheria (ADULT) 2007 TDAP (age 10 and older)(Boostrix) 10/11/2012 Varicella Zoster Vaccine (Adult) 10/25/2011 Zoster Vaccine Recombinant (Shingrix) 12/03/2018 ,07/09/2018 documented as of this encounter Social History Tobacco Use Types Packs/Day Years Used Date Smoking Tobacco: Former Cigarettes 0.5 10 Q uit: 09/12/1974 Smokeless Tobacco: Never Alcohol Use Standard Drinks/Week Comments Yes 0 (1 standard drink = 0.6 oz pur e alcohol) 4 cans beer/day Food Insecurity Answer Date Recorded Within the past 12 months, y ou worried that your food would run out before you got money to buy more. Never true 08/14/2019 Within the past 12 months, t he food you bought just didn't last and you didn't have money to get more. Never true 08/14/2019 Sex Assigned at Date Recorded Not on file Job Start Date Occupation Industry Not on file Not on file Not on file documented as of this encounter Miscellaneous Notes * Telephone Encounter - LITZY Bowman - 04/06/2023 11:02 AM EDT Caller requesting the following information to be faxed: Name/Company of caller: [employer] / [employer] [facility] Information requested to be faxed: Need for appointment notes stating patient needs assistance withhis ADL's, getting from room to room Fax number: [phone] Attention to Name/Company: [employer] / phone [phone] Any additional information?: [employer] voiced the information received does not substantiate the need forthe wheel chair in the home to help with ADL's. Patient would need to be able to self propel a wheel, if unable to do so, patient will not qualify. Appointment notes cannot be addended per [employer]. * Telephone Encounter - Nancy Connolly RN - 03/28/2023 3:44 PM EDT Provider to address: Advice Reason for Call: Advice Contact: Telephone Call Contact Type: Orders Outcome: Pt's T& DME for brea has been refaxred to [employer] by Marissa Alva.. Form for [employer] also faxed. Confirmation received. Total Time including non face to face (minutes): 10 * Telephone Encounter - Marissa Alva LPN - 03/28/2023 2:11 PM EDT Provider to address: patient's calling stating she needs forms faxed to [employer] withthe result of his PPD and the exam that Dr. Medrano completed on 03/21/23. Xiomy states forms were left with Dr. Medrano after that office visit. Per Nancy, patient's wheelchair order was faxed to [employer] on 03/21 after patient's visit with Dr. Medrano. I told Xiomy I'd fax it again since [employer] states they didn't receive it. Reason for Call: Advice Contact: Telephone Call Contact Type: Care Coordination Outcome: forms were located and will be faxed by Dr. Medrano's nurse. Patient's made aware. Total Time including non face to face (minutes): 15 * Telephone Encounter - LITZY Tavarez - 03/28/2023 10:21 AM EDT Pt spouse calling requesting a call back today to discuss pt PPD results and where they were faxed to, also spouse checking the status of wheelchair, please advise, thanks documented in this encounter Plan of Treatment Upcoming Encounters Date Type Specialty Care Team Description 07/18/2023 Office Visit Family Medicine Mitchell ROMAN, Jerry Cerda MD [address] [place] [address] Scheduled Procedures Name Priority Associated Diagnoses Date/Ti me COLONOSCOPY FLEXIBLE PROXIMAL DIAGNOSTIC Recall History of colon polyps Health Maintenance Due Date Last Done Comments COVID-19 Vaccine (3 - Pfizer series) 12/29/2020 11/03/2020, 10/13/2020 DTaP,Tdap,and Td Vaccines (2 - Td or Tdap) 10/11/2022 10/11/2012, 2007 Depression Screening, Annual for Pts 12 and Over 12/29/2022 12/29/2021 Influenza Vaccine (FLU shot) (#1) 2023 07/01/2021, 05/18/2020, 06/27/2019, Additional history exists GFR 06/27/2023 06/27/2022, 06/04, 12/18/2019, Additional history exists HbA1c 06/27/2023 06/27/2022, 12/02, 11/04/2018, Additional history exists Albumin/Creatinine Ratio 07/03/2025 07/03/2022 Pneumococcal Vaccine: 65+ Years Completed 02/09/2017, 01/27/2015, 07/21/2003 Zoster Vaccines Completed 12/03/2018, 0 02/2018, 10/25/2011 GARDASIL-HPV IMMUNIZATION SERIES Aged Out No longer eligible based on patient's age to complete this topic Hepatitis B Aged Out No longer eligi ble based on patient's age to complete this topic MENINGOCOCCAL (MENACTRA/MENVEO) Aged Out No longer eligible based on patient's age to complete this topic documented as of this encounter Medical Devices Not on filedocumented as of this encounter Care Teams Director Of In Service Education Relationship Specialty Start Date End Date Jerry Medrano III, MD [address] [place] [address] [place] [address] PCP - General Family Medicine 10/21/18 documented as of this encounter
--- OUTSIDE RECORDS SUMMARY | 2023-08-30 06:47 | External Medical Summary | Summary of Care ---
Author Name Unknown Organization [facility] Address [address] [place] [address] Phone [phone] Care Team Providers Care Tool Liaison Name Role Phone Mitchell ROMAN MD, Jerry Cerda Primary Care Provider [phone] Reason for Visit * Reason Comments eRx-Medication Refill Encounter Details Date Type Department Care Team Description 04/13/2023 Refill Family Practice [facility] [place] [address] [facility] [place] [address] Jerry Medrano III, MD [address] [place] [address] HTN, goal below 150/90 Allergies No known active allergiesdocumented as of this encounter (statuses as of 04/13/2023) Medications Medication Sig Dispensed Refills Start Date [...] the morning. 90 Tablet 3 09/20/2022 Active Meloxicam 7.5 MG Oral Tablet (Mobic)Indications:P [...] BY MOUTH EVERY DAY 90 Tablet 2 03/29/2023 Active Atorvastatin Calcium 40 MG Oral Tablet (Lipitor)Indications :Dyslipidemia, goal to be determined TAKE 1 TABLET BY MOUTH EVERY DAY 90 Tablet 1 03/29/2023 Active hydrALAZINE HCl 25 MG Oral Tablet (Apresoline)Indicati ons:HTN, goal below 150/90 TAKE 1 TABLET BY MOUTH TWICE A DAY 180 Tablet 3 04/13/2023 Active hydrALAZINE HCl 25 MG Oral Tablet (Apresoline)Indicati ons:HTN, goal below 150/90 TAKE 1 TABLET BY MOUTH TWICE A DAY 180 Tablet 1 10/10/2022 3 Discontinued documented as of this encounter (statuses as of 04/13/2023) Active Problems Problem Noted Date Prediabetes 07/17/2022 [...] as of this encounter (statuses as of 04/13/2023) Resolved Problems Problem Noted Date Resolved Date [...] as of this encounter (statuses as of 04/13/2023) Immunizations Name Administration Dates Next Due COVID-19 mRNA, LNP-s, No Pre serve, 2-Dose Series ([employer]) 11/03/2020,10/13/2020 PPD 03/21/2023 Pneumococcal Conjugate Vacc, 13 Valent (Prevnar) 01/27/2015 Pneumococcal Polysaccharide PPV23 (Pneumovax) 02/09/2017 Seasonal Influenza, Quadriva lent Hd (Fluzone Hd) 07/01/2021 Seasonal Influenza, Quadriva lent, No Preserve, 6 Mons & Above, IM 05/18/2020,06/03/2018,05/24/2017 Seasonal Influenza, Quadriva lent, No Preserve, IM 05/30/2016,07/22/2015 Seasonal Influenza, Split, I IV3, With Preserve, Inj 05/20/2014,05/17/2013,05/23/2012,06/06,06/07/2010,09/10/2009,06/23/2008 ,06/04/2007,07/04/2006 Seasonal Influenza, Trivalen t, Adjuvanted, 65+ yrs [...] encounter Miscellaneous Notes * Telephone Encounter - Babs Mora DO - 04/13/2023 12:27 PM EDT Signed Prescriptions: Disp Refills hydrALAZINE HCl 25 MG Oral Tablet (Apresol*180 Ta*3 Sig: TAKE 1 TABLET BY MOUTH TWICE A DAY Authorizing Provider: BABS MORA * Telephone Encounter - Kelley Weir LPN - 04/13/2023 9:07 AM EDTPending Prescriptions: Disp Refills hydrALAZINE HCl 25 MG Oral Tablet (Apresol*180 Ta*3 Sig: TAKE 1 TABLET BY MOUTH TWICE A DAY * Telephone Encounter - Kelley Weir LPN - 04/13/2023 9:06 AM EDT Pending Prescriptions: Disp Refills hydrALAZINE HCl 25 MG Oral Tablet (Apreso*180 Ta*1 Sig: TAKE 1 TABLET BY MOUTH TWICE A DAY Last Visit: 03/21/2023 (in office), 12/06/2022 (telemedicine) Next Visit: 07/18/2023 Last date the medication was ordered: 10/10/2022 Patient Active Problem List Diagnosis Code HTN, goal below 140/90 I10 ADVANCE DIRECTIVE INFORMATION Lumbar spinal stenosis M48.061 Dyslipidemia E78.5 PAF (paroxysmal atrial fibrillation) ([facility]) I48.0 Esophageal obstruction K22.2 Obesity, morbid (more than 100 lbs over ideal weight or BMI > 40) ([facility]) E66.01 Prediabetes R73.03 Labs: Lab Results Component Value Date/Time CREATININE - [facility] 0.8 06/27/2022 11:27 AM CREATININE - [facility] 0.9 12/18/2019 10:30 AM CREATININE, RANDOM URINE - [facility] 36 07/03/2022 09:03 AM CREATININE-OUTSIDE LAB 1.0 10/11/2018 12:00 AM Lab Results Component Value Date/Time POTASSIUM - [facility] 3.4 (L) 06/27/2022 11:27 AM POTASSIUM - [facility] 4.2 12/18/2019 10:30 AM POTASSIUM-OUTSIDE LAB 4.6 10/11/2018 12:00 AM Lab Results Component Value Date/Time TSH - [facility] 2.58 01/05/2004 09:07 AM Lab Results Component Value Date/Time LDL (CALCULATED) 127. 06/17/1996 11:15 AM LDL CHOLESTEROL (CALCULATED) - [facility] 50 06/27/2022 11:27 AM LDL CHOLESTEROL (CALCULATED) - [facility] 53 12/25/2020 10:47 AM LDL CHOLESTEROL (CALCULATED) - [facility] 53 12/18/2019 10:30 AM LDL CHOLESTEROL (CALCULATED) - [facility] 55 02/01/2018 09:47 AM LDL CHOLESTEROL (DIRECT MEASURE) - [facility] 53 11/04/2018 01:14 PM LDL CHOLESTEROL (DIRECT MEASURE) - [facility] NOT APPLICABLE 02/01/2018 09:47 AM LDL CHOLESTEROL (DIRECT MEASURE) - [facility] NOT APPLICABLE 01/25/2017 08:29 AM LDL CHOLESTEROL (DIRECT MEASURE) - [facility] 176 (H) 11/09/2005 08:36 AM Lab Results Component Value Date/Time ALT - [facility] 27 12/18/2019 10:30 AM Hemoglobin AIC Results: Lab Results Component Value Date/Time HEMOGLOBIN A1C - [facility] 5.8 (H) 06/27/2022 11:27 AM HEMOGLOBIN A1C - [facility] 5.8 (H) 12/18/2019 10:30 AM HEMOGLOBIN A1C - [facility] 4.7 11/04/2018 01:14 PM HEMOGLOBIN A1C - [facility] 5.5 02/01/2018 09:47 AM * Telephone Encounter - Kitty Apple - 04/13/2023 7:03 AM EDTPending Prescriptions: Disp Refills hydrALAZINE HCl 25 MG Oral Tablet [Pharmac*180 Ta*1 Sig: TAKE 1 TABLET BY MOUTH TWICE A DAY documented in this encounter Plan of Treatment Upcoming Encounters Date Type Specialty Care Team Description 07/18/2023 Office Visit Family Medicine Seviersneha ROMAN, Jerry Cerda MD [address] [place] [address], [place] [id number] Scheduled Procedures Name Priority Associated Diagnoses Date/Ti [...] 02/09/2017, 01/27/2015, 07/21/2003 Zoster Vaccines Completed 12/03/2018, 11/0 02/2018, 10/25/2011 GARDASIL-HPV IMMUNIZATION SERIES Aged Out No longer eligible based on patient's age to complete this topic Hepatitis B Aged Out No longer eligi ble based on patient's age to complete this topic MENINGOCOCCAL (MENACTRA/MENVEO) Aged Out No longer eligible based on patient's age to complete this topic documented as of this encounter Medical Devices Not on filedocumented as of this encounter Visit Diagnoses Diagnosis HTN, goal below 150/90 documented in this encounter Care Teams Tool Liaison Relationship Specialty Start Date End Date Jerry Medrano III, MD [address] [place] [address] PCP - General Family Medicine 10/21/18 documented as of this encounter
--- OUTSIDE RECORDS SUMMARY | 2023-08-30 06:47 | External Medical Summary | Summary of Care ---
Author Name Unknown Organization [facility] Address [address] [place] [address] Phone [phone] Care Team Providers Care Food Safety Scientist Name Role Phone Mitchell ROMAN MD, Jerry Cerda Primary Care Provider [phone] Reason for Visit * Reason Onset Date Comments Advice 03/15/2023 Order Request 03/15/2023 Order for lightw eight wheel chair Encounter Details Date Type Department Care Team Description 03/15/2023 Telephone Family Practice [facility] [address] [facility] [place] [address] Jerry Medrano III, MD [address] [place] [address] Advice; Order Request (Order for lightweig... Allergies No known active allergiesdocumented as of this encounter (statuses as of 03/28/2023) Medications Medication Sig Dispensed Refills Start Date [...] EVERY DAY 100 Tablet 3 03/15/2022 Active amLODIPine Besylate 10 MG Oral Tablet (Norvasc) TAKE 1 TABLET BY MOUTH EVERY DAY 90 Tablet 2 04/13/2022 Active Lisinopril 40 MG Oral Tablet Take 1 Tablet by mouth in the morning. 90 Tablet 3 09/20/2022 Active Atorvastatin Calcium 40 MG Oral Tablet (Lipitor)Indications :Dyslipidemia, goal to be determined TAKE 1 TABLET BY MOUTH EVERY DAY 90 Tablet 1 10/02/2022 Active hydrALAZINE HCl 25 MG Oral Tablet [...] EVERY DAY 90 Tablet 3 01/05/2023 Active Silver sulfADIAZINE 1 % External Cream (Silvadene)Indicatio ns:Cellulitis of toe, left Apply topically to affected area daily. Apply to burn 50 g 1 10/16/2022 3 Discontinue d(Patient preference/ discontinua tion) busPIRone HCl 5 MG Oral Tablet (Buspar) Take 1 Tablet by mouth in the morning and 1 Tablet before bedtime. 60 Tablet 5 02/03/2023 3 Discontinue d(Patient preference/ discontinua tion) documented as of this encounter (statuses as of 03/28/2023) Active Problems Problem Noted Date Prediabetes 07/17/2022 [...] as of this encounter (statuses as of 03/28/2023) Resolved Problems Problem Noted Date Resolved Date [...] as of this encounter (statuses as of 03/28/2023) Immunizations Name Administration Dates Next Due COVID-19 mRNA, LNP-s, No Pre serve, 2-Dose Series ([employer]) 11/03/2020,10/13/2020 Influenza, Whole Virus 07/04/1999,1997,06/03/1997,06/03 PPD 03/21/2023 [...] encounter Miscellaneous Notes * Telephone Encounter - Marissa Alva LPN - 03/28/2023 4:48 PM EDT Provider to address: do you want him rescheduled for another eval for light weight wheelchair or are you going to put in a dme order for standard wheelchair? (not sure if patient/family requested light weight wheelchair) Reason for Call: Advice and Order Request (Order for lightweight wheel chair ) Contact: Telephone Call Contact Type: Follow-up Outcome: forwarded to provider to address Total Time including non face to face (minutes): 5 * Telephone Encounter - LITZY Balbuena - 03/28/2023 4:03 PM EDT Natasha from [employer] calling to inform that order for light weight wheel chair will be denieddue to clinic notes not supporting patients need for lightweight wheel chair. Natasha states either needs a new script sent for standard wheelchair or patient will need to be reevaluated for lightweight wheelchair, purposes. Attn: n/a * Telephone Encounter - Marissa Alva LPN - 03/15/2023 4:16 PM EDT Provider to address: n/a Reason for Call: Advice Contact: Telephone Call Contact Type: Orders Outcome: patient will need to be seen. Medicare will require documentation before they'll cover anyDME products. Patient is scheduled on 03/21/2023. I spoke with Xiomy (patient's ) explaining this to her. She verbalized understanding. Total Time including non face to face (minutes): 5 * Telephone Encounter - LITZY Tavarez - 03/15/2023 1:59 PM EDT Spoke to pt spouse requesting a prescription for a wheelchair to be sent to [facility] phone number is [phone]. Spouse requesting this RX bc pt has trouble walking, he can only stand, please advise, thanks *Hoping to have wheelchair by visit on Sunday* documented in this encounter Plan of Treatment Upcoming Encounters Date Type Specialty Care Team Description 07/18/2023 Office Visit Family Medicine Mitchell III, Jerry Cerda MD [address] [facility] [place], [place] [address] Scheduled Procedures Name Priority Associated Diagnoses Date/Ti [...] filedocumented as of this encounter Care Teams Food Safety Scientist Relationship Specialty Start Date End Date Jerry Medrano III, MD [address] [place] [id number] PCP - General Family Medicine 10/21/18 documented as of this encounter
--- OUTSIDE RECORDS SUMMARY | 2023-08-30 06:47 | External Medical Summary ---
Author Name Unknown Address Unknown Organization K01:[facility] [place] - [address] [place] [address] Laboratory Report Ordering Provider Test Date Status PAYTON YEH III 07/18/2023 16:50:38 Final Observation Date Value Abnormality Reference (Units ) Status BUN 07/18/2023 16:50:38 14 6-20 (mg/dL) Final Creatinine 07/18/2023 16:50:38 0.8 0.6-1.2 (mg/dL) Final Glomerular filtration rate/1.73 sq M.predicted [Volume Rate/Area] in Serum, Plasma or Blood by Creatinine-based formula (CKD-EPI) 07/18/2023 16:50:38 86 >=60 (mL/min) Final eGFR is calculated based on the CKD-EPI 2020 equation SODIUM 07/18/2023 16:50:38 135 135-146 (m mol/L) Final Potassium 07/18/2023 16:50:38 3.8 3.5-5.1 (m mol/L) Final Cl 07/18/2023 16:50:38 102 98-107 (mm ol/L) Final CO2 07/18/2023 16:50:38 25 22-32 (mmo l/L) Final Anion gap 07/18/2023 16:50:38 8 7-15 (mmol /L) Final Glucose 07/18/2023 16:50:38 103 70-120 (mg /dL) Final Calcium 07/18/2023 16:50:38 9.6 8.4-10.2 ( mg/dL) Final Performing Location [facility] [place] - [address] [place] [address]
--- OUTSIDE RECORDS SUMMARY | 2023-08-30 06:47 | External Medical Summary | Summary of Care ---
Author Name Unknown Organization [facility] Address [address] [place] [address] Phone [phone] Care Team Providers Care Heel Sander Name Role Phone Mitchell ROMAN MD, Jerry Cerda Primary Care Provider [phone] Reason for Visit * Reason Onset Date Comments Advice 03/02/2023 Encounter Details Date Type Department Care Team Description 03/02/2023 Telephone Family Practice [facility] 200 [facility] [place] [address] Jerry Medrano III, MD 200 [facility] [place] [address] Advice Allergies No known active allergiesdocumented as of this encounter (statuses as of 06/01/2023) Medications Medication Sig Dispensed Refills Start Date [...] Capsule 1 Capsule at bedtime. 0 Active Lisinopril 40 MG Oral Tablet Take 1 Tablet by mouth in the morning. 90 Tablet 3 09/20/2022 Active Indapamide 2.5 MG Oral Tablet (Lozol) TAKE 1 TABLET BY MOUTH EVERY DAY 90 Tablet 2 01/02/2023 Active metFORMIN HCl ER 500 MG Oral Tablet Extended Release 24 Hour (Glucophage XR)Indications:Impair ed fasting glucose TAKE 1 TABLET BY MOUTH EVERY DAY 90 Tablet 2 01/02/2023 Active Metoprolol Succinate ER 200 MG Oral Tablet Extended Release 24 HourIndications:HTN, goal below 140/90 TAKE 1 TABLET BY MOUTH EVERY DAY 90 Tablet 3 01/05/2023 Active documented as of this encounter (statuses as of 06/01/2023) Active Problems Problem Noted Date Prediabetes 07/17/2022 [...] as of this encounter (statuses as of 06/01/2023) Resolved Problems Problem Noted Date Resolved Date [...] as of this encounter (statuses as of 06/01/2023) Immunizations Name Administration Dates Next Due COVID-19 mRNA, LNP-s, No Pre serve, 2-Dose Series (Pfizer) 11/03/2020,10/13/2020 Pneumococcal Conjugate Vacc, 13 Valent (Prevnar) 01/27/2015 Pneumococcal Polysaccharide PPV23 (Pneumovax) 02/09/2017 SEASONAL INFLUENZA, PF, 6 M & Above, IM , (FLULAVAL or FLUZONE) 05/18/2020,06/03/2018,05/24/2017 Seasonal Influenza, Quadriva lent Hd (Fluzone Hd) 07/01/2021 Seasonal Influenza, Quadriva lent, No Preserve, IM [...] encounter Miscellaneous Notes * Telephone Encounter - Kira Holm LPN - 03/02/2023 11:43 AM EDT Provider to address: Dr. Medrano Reason for Call: Advice Contact: Telephone Call Contact Type: Care Coordination Outcome: Pt's spouse Xiomy is calling and pt is on the other phone yelling his 's name. Saying Xiomy please. States that there is a change in the pt's behavior. Pt's is angery, yelling and cursing. Pt will strike out at her if she is in arms length. Denies the pt being confused. Mobility seems to be worse today. Is not able to walk with a cane. Can only stand and pivot with a walker. States that she is not able to take care of the pt. Called PCP office, spoke with Marissa, whom spoke with PCP and advised that the pt's takes thept to the ER. Xiomy aware and will comply. Total Time including non face to face (minutes): 15 * Telephone Encounter - LITZY Anderson - 03/02/2023 11:35 AM EDT Reason for patient's call: Spouse called to speak with nurse regarding pt , states pt's mobility has gotten worse and he is unable to walk, states he also is very angry and combative. Caller was transferred to dedicated nurse at the nurse line. documented in this encounter Plan of Treatment Upcoming Encounters Date Type Specialty Care Team Description 07/18/2023 Office Visit Family Medicine Mitchell ROMAN, Jerry Cerda MD [address] [place] [address], [place] [address] Scheduled Procedures Name Priority Associated Diagnoses Date/Ti me COLONOSCOPY FLEXIBLE PROXIMAL DIAGNOSTIC Recall History of colon polyps Health Maintenance Due Date Last Done Comments COVID-19 Vaccine (3 - Pfizer series) 12/29/2020 11/03/2020, 10/13/2020 DTaP,Tdap,and Td Vaccines (2 - Td or Tdap) 10/11/2022 10/11/2012, 2007 Depression Screening 12/29/2022 12/29/2021 Influenza Vaccine (FLU shot) (#1) 2023 07/01/2021, 05/18/2020, 06/27/2019, Additional history exists GFR 06/27/2023 06/27/2022, 06/04, 12/18/2019, Additional history exists HbA1c 06/27/2023 06/27/2022, 12/02, 11/04/2018, Additional history exists Albumin/Creatinine Ratio 07/03/2025 07/03/2022 Pneumococcal Vaccine: 65+ Years Completed 02/09/2017, 01/27/2015, 07/21/2003 Zoster Vaccines Completed 12/03/2018, 02/2018, 10/25/2011 GARDASIL-HPV IMMUNIZATION SERIES Aged Out [...] filedocumented as of this encounter Care Teams Heel Sander Relationship Specialty Start Date End Date Jerry Medrano III, MD 200 [facility] [place] [address] PCP - General Family Medicine 10/21/18 documented as of this encounter
--- OUTSIDE RECORDS SUMMARY | 2023-08-30 06:47 | External Medical Summary | Summary of Care ---
Author Name Unknown Organization [facility] Address [address] [place] [address] Phone [phone] Care Team Providers Care Clinical Research Specialist Name Role Phone Mitchell ROMAN MD, Jerry Cerda Primary Care Provider [phone] Reason for Visit * Reason Onset Date Comments Advice 03/15/2023 Order Request 03/15/2023 Order for lightw eight wheel chair Encounter Details Date Type Department Care Team Description 03/15/2023 Telephone Family Practice [facility] 200 [place] [address] Jerry Medrano III, MD 200 [place] [address] Advice; Order Request (Order for lightweig... Allergies No known active allergiesdocumented as of this encounter (statuses as of 03/29/2023) Medications Medication Sig Dispensed Refills Start Date [...] BY MOUTH EVERY DAY 100 Tablet 3 2 Active Lisinopril 40 MG Oral Tablet Take 1 Tablet by mouth in the morning. 90 Tablet 3 3 Active hydrALAZINE HCl 25 MG Oral Tablet (Apresoline)Indica tions:HTN, goal below 150/90 TAKE 1 TABLET BY MOUTH TWICE A DAY 180 Tablet 1 3 Active Meloxicam 7.5 MG Oral Tablet (Mobic)Indications :Primary osteoarthritis of both hands Take 1 Tablet by mouth in the morning. for pain.. 90 Tablet 1 3 Active Indapamide 2.5 MG Oral Tablet (Lozol) TAKE 1 TABLET BY MOUTH EVERY DAY 90 Tablet 2 3 Active metFORMIN HCl ER 500 MG Oral Tablet Extended Release 24 Hour (Glucophage XR)Indications:Imp aired fasting glucose TAKE 1 TABLET BY MOUTH EVERY DAY 90 Tablet 2 3 Active Metoprolol Succinate ER 200 MG Oral Tablet Extended Release 24 HourIndications:HT N, goal below 140/90 TAKE 1 TABLET BY MOUTH EVERY DAY 90 Tablet 3 3 Active amLODIPine Besylate 10 MG Oral Tablet (Norvasc) TAKE 1 TABLET BY MOUTH EVERY DAY 90 Tablet 2 2 03/29/20 23 Discontinued Atorvastatin Calcium 40 MG Oral Tablet (Lipitor)Indicatio ns:Dyslipidemia, goal to be determined TAKE 1 TABLET BY MOUTH EVERY DAY 90 Tablet 1 3 03/29/20 23 Discontinued Silver sulfADIAZINE 1 % External Cream (Silvadene)Indicat ions:Cellulitis of toe, left Apply topically to affected area daily. Apply to burn 50 g 1 3 03/21/20 23 Discontinued(Pat ient preference/disco ntinuation) busPIRone HCl 5 MG Oral Tablet (Buspar) Take 1 Tablet by mouth in the morning and 1 Tablet before bedtime. 60 Tablet 5 3 03/21/20 23 Discontinued(Pat ient preference/disco ntinuation) documented as of this encounter (statuses as of 03/29/2023) Active Problems Problem Noted Date Prediabetes 07/17/2022 [...] as of this encounter (statuses as of 03/29/2023) Resolved Problems Problem Noted Date Resolved Date [...] as of this encounter (statuses as of 03/29/2023) Immunizations Name Administration Dates Next Due COVID-19 [...] encounter Miscellaneous Notes * Telephone Encounter - Jerry Medrano III, MD - 03/29/2023 12:47 PM EDT What constitutes reason for light weight wheelchair? * Telephone Encounter - Marissa Alva LPN [...] sent to [facility] phone number is [phone]. Spouse requesting this RX bc pt has trouble walking, he can only stand, please advise, thanks *Hoping to have wheelchair by visit on Sunday* documented in this encounter Plan of Treatment Upcoming Encounters Date Type Specialty Care Team Description 07/18/2023 Office Visit Family Medicine Jerry Medrano III, MD [address] [place] [address] Scheduled Procedures Name Priority Associated Diagnoses Date/Ti [...] filedocumented as of this encounter Care Teams Clinical Research Specialist Relationship Specialty Start Date End Date Jerry Medrano III, MD [address] [place] [address] [address] PCP - General Family Medicine 10/21/18 documented as of this encounter
--- OUTSIDE RECORDS SUMMARY | 2023-08-30 06:47 | External Medical Summary | Summary of Care ---
Author Name Unknown Organization [facility] Address [address] [place] [address] Phone [phone] Care Team Providers Care Metal Model Builder Name Role Phone Mitchell ROMAN MD, Jerry Cerda Primary Care Provider [phone] Reason for Visit * Reason Onset Date Comments Advice 03/15/2023 Order Request 03/15/2023 Order for lightw eight wheel chair Encounter Details Date Type Department Care Team Description 03/15/2023 Telephone Family Practice [facility] 200 [place] [address] Jerry Medrano III, MD 200 [place] [address] Advice; Order Request (Order for lightweig... Allergies [...] Telephone Encounter - Marissa Alva LPN - 03/29/2023 1:53 PM EDT Provider to address: you ordered a light weight wheelchair. [facility] is saying he needs a standard wheelchair. Please place order for standard wheelchair unless patient specifically requested the lightweight wheelchair. Reason for Call: Advice and Order Request (Order for lightweight wheel chair ) Contact: Telephone Call Contact Type: Orders Outcome: forwarded to PCP Total Time including non face to face (minutes): 5 * Telephone Encounter - Jerry Medrano III, [...] sent to [facility] phone number is [phone]. Spouse requesting this RX bc pt has trouble walking, he can only stand, please advise, thanks *Hoping to have wheelchair by visit on Sunday* documented in this encounter Plan of Treatment Upcoming Encounters Date Type Specialty Care Team Description 07/18/2023 Office Visit Family Medicine Mitchell III, Jerry Cerda MD [address] [place] [address] Scheduled Procedures Name Priority Associated Diagnoses Date/Ti [...] filedocumented as of this encounter Care Teams Metal Model Builder Relationship Specialty Start Date End Date Jerry Medrano III, MD [address] [place] [address] PCP - General Family Medicine 10/21/18 documented as of this encounter
--- OUTSIDE RECORDS SUMMARY | 2023-08-30 06:47 | External Medical Summary | Summary of Care ---
Author Name Unknown Organization [facility] Address [address] [place] [address] Phone [phone] Care Team Providers Care Dirt Contractor Name Role Phone Mitchell ROMAN MD, Rao Cerda Primary Care Provider [phone] Reason for Visit * Reason Onset Date Comments Advice 03/15/2023 Order Request 03/15/2023 Order for lightw eight wheel chair Encounter Details Date Type Department Care Team Description 03/15/2023 Telephone Family Practice [facility] 200 [place] [address] Rao Cain III, MD 200 [place] [address] Advice; Order Request (Order for lightweig... Allergies No known active allergiesdocumented as of this encounter (statuses as of 03/30/2023) Medications Medication Sig Dispensed Refills Start Date [...] as of this encounter (statuses as of 03/30/2023) Active Problems Problem Noted Date Prediabetes 07/17/2022 [...] as of this encounter (statuses as of 03/30/2023) Resolved Problems Problem Noted Date Resolved Date [...] as of this encounter (statuses as of 03/30/2023) Immunizations Name Administration Dates Next Due COVID-19 [...] encounter Miscellaneous Notes * Telephone Encounter - ELEAZAR Schwartz - 03/30/2023 1:30 PM EDT Provider to address: Wheelchair order faxed Reason for Call: Advice and Order Request (Order for lightweight wheel chair ) Contact: Telephone Call Contact Type: Orders Outcome: Wheelchair order printed and successfully faxed to [facility]. Total Time including non face to face (minutes): 10 * Addendum Note - Rao Cain III, MD - 03/30/2023 12:57 PM EDTAddended by: RAO CAIN on: 03/30/2023 12:57 PM Modules accepted: Orders * Telephone Encounter - Marissa Alva LPN [...] face (minutes): 5 * Telephone Encounter - Rao Cain III, MD - 03/29/2023 12:47 PM EDT [...] sent to [facility] phone number is [phone]. Spouse requesting this RX bc pt has trouble walking, he can only stand, please advise, thanks *Hoping to have wheelchair by visit on Sunday* documented in this encounter Plan of Treatment Upcoming Encounters Date Type Specialty Care Team Description 07/18/2023 Office Visit Family Medicine Mitchell III, Rao Cerda MD [address] [place] [address], [place] [address] Scheduled Procedures Name Priority Associated Diagnoses Date/Ti [...] as of this encounter Visit Diagnoses Diagnosis Ambulatory dysfunction- Primary documented in this encounter Care Teams Dirt Contractor Relationship Specialty Start Date End Date Rao Cain III, MD [address] [place] [address], [place] [address] PCP - General Family Medicine 10/21/18 documented as of this encounter
--- OUTSIDE RECORDS SUMMARY | 2023-08-30 06:47 | External Medical Summary | Summary of Care ---
Author Name Unknown Organization [facility] Address [address] [place] [address] Phone [phone] Care Team Providers Care Human Anatomy Teacher Name Role Phone Mitchell ROMAN MD, John E Primary Care Provider [phone] Encounter Details Date Type Department Care Team Description 03/28/2023 Telephone Family Practice [facility] 200 [facility] [place] [id number] Jerry Medrano III, MD 200 [place] [address] Allergies No known active allergiesdocumented as of this encounter (statuses as of 04/03/2023) Medications Medication Sig Dispensed Refills Start Date [...] Active hydrALAZINE HCl 25 MG Oral Tablet (Apresoline)Indication s:HTN, goal below 150/90 TAKE 1 TABLET BY MOUTH TWICE A DAY 180 Tablet 1 10/10/2022 Active Meloxicam 7.5 MG Oral Tablet (Mobic)Indications:Luz fabio osteoarthritis of both hands Take 1 Tablet by mouth in the morning. for pain.. 90 Tablet 1 12/29/2022 Active Indapamide 2.5 MG Oral Tablet (Lozol) TAKE 1 TABLET BY MOUTH EVERY DAY 90 Tablet 2 01/02/2023 Active metFORMIN HCl ER 500 MG Oral Tablet Extended Release 24 Hour (Glucophage XR)Indications:Impaire d fasting glucose TAKE 1 TABLET BY MOUTH [...] Active Atorvastatin Calcium 40 MG Oral Tablet (Lipitor)Indications:D yslipidemia, goal to be determined TAKE 1 TABLET BY MOUTH EVERY DAY 90 Tablet 1 03/29/2023 Active documented as of this encounter (statuses as of 04/03/2023) Active Problems Problem Noted Date Prediabetes 07/17/2022 [...] as of this encounter (statuses as of 04/03/2023) Resolved Problems Problem Noted Date Resolved Date [...] as of this encounter (statuses as of 04/03/2023) Immunizations Name Administration Dates Next Due COVID-19 mRNA, LNP-s, No Pre serve, 2-Dose Series ([employer]) 11/03/2020,10/13/2020 PPD 03/21/2023 Pneumococcal Conjugate Vacc, 13 [...] on file documented as of this encounter Plan of Treatment Upcoming Encounters Date Type Specialty Care Team Description 07/18/2023 Office Visit Family Medicine Mitchell ROMAN, Jerry Cerda MD 200 [place] [address] Scheduled Procedures Name Priority Associated Diagnoses Date/Ti [...] filedocumented as of this encounter Care Teams Human Anatomy Teacher Relationship Specialty Start Date End Date Jerry Medrano III, MD [address] [place] [address], [place] [address] PCP - General Family Medicine 10/21/18 documented as of this encounter
--- OUTSIDE RECORDS SUMMARY | 2023-08-30 06:47 | External Medical Summary | Summary of Care ---
Author Name Unknown Organization [facility] Address [address] [place] [address] Phone [phone] Care Team Providers Care Criminal Defense Attorney Name Role Phone Mitchell ROMAN MD, Jerry Cerda Primary Care Provider [phone] Reason for Visit * Reason Onset Date Comments Advice 03/15/2023 Order Request 03/15/2023 Order for lightw eight wheel chair Encounter Details Date Type Department Care Team Description 03/15/2023 Telephone Family Practice [facility] 200 [facility] [place] [address] Jerry Medrano III, MD 200 [place] [address] Advice; Order Request (Order for lightweig... Allergies [...] mRNA, LNP-s, No Pre serve, 2-Dose Series ([employer]) 11/03/2020,10/13/2020 Influenza, Whole Virus 07/04/1999,1997,06/03/1997,06/03 PPD 03/21/2023 [...] Miscellaneous Notes * Telephone Encounter - LITZY Balbuena - [...] sent to [facility] phone number is [phone]. Spouse requesting this RX bc pt has trouble walking, he can only stand, please advise, thanks *Hoping to have wheelchair by visit on Sunday* documented in this encounter Plan of Treatment Upcoming Encounters Date Type Specialty Care Team Description 07/18/2023 Office Visit Family Medicine [place] III, Jerry Cerda MD [address] [place] [address] Scheduled Procedures Name Priority Associated Diagnoses Date/Ti [...] 12/18/2019, Additional history exists HbA1c 06/27/2023 06/27/2022, 0402/2020, 11/04/2018, Additional history exists Albumin/Creatinine Ratio 07/03/2025 [...] filedocumented as of this encounter Care Teams Criminal Defense Attorney Relationship Specialty Start Date End Date Jerry Medrano III, MD 200 [place] [address] PCP - General Family Medicine 10/21/18 documented as of this encounter
--- OUTSIDE RECORDS SUMMARY | 2023-08-30 06:47 | External Medical Summary | Summary of Care ---
Author Name Unknown Organization [facility] Address [address] [place] [address] Phone [phone] Care Team Providers Care Construction Equipment Operator Name Role Phone Mitchell ROMAN MD, Jerry Cerda Primary Care Provider [phone] Reason for Visit * Reason Onset Date Comments Advice 03/28/2023 Encounter Details Date Type Department Care Team Description 03/28/2023 Telephone Family Practice [facility] 200 [facility] [place] [address] Jerry Medrano III, MD 200 [facility] [place] [address] Advice Allergies No known active allergiesdocumented as [...] getting from room to room Fax number: [phone] Attention to Name/Company: [employer] / phone [phone] Any additional information?: Natasha voiced the information [...] to [facility] by Marissa Alva.. Form for [facility] also faxed. Confirmation received. Total Time including non face to face (minutes): 10 * Telephone Encounter - Marissa Alva LPN - 03/28/2023 2:11 PM EDT Provider to address: patient's calling stating she needs forms faxed to [facility] withthe result of his PPD and [...] Medicine Mitchell ROMAN, Jerry Cerda MD 200 [facility] [place] [address] Scheduled Procedures Name Priority Associated Diagnoses Date/Ti [...] filedocumented as of this encounter Care Teams Construction Equipment Operator Relationship Specialty Start Date End Date Jerry Medrano III, MD [address] [place] [address] [place] [address] PCP - General Family Medicine 10/21/18 documented as of this encounter
--- OUTSIDE RECORDS SUMMARY | 2023-08-30 06:47 | External Medical Summary | Summary of Care ---
Author Name Unknown Organization [facility] Address [address] [place] [address] Phone [phone] Care Team Providers Care Fast Food Shift Lead Name Role Phone Mitchell ROMAN MD, Rao Cerda Primary Care Provider [phone] Reason for Visit * Reason Onset Date Comments Advice 03/15/2023 Order Request 03/15/2023 Order for lightw eight wheel chair Encounter Details Date Type Department Care Team Description 03/15/2023 Telephone Family Practice [facility] 200 [place] [address] Rao Cain III, MD 200 [place] [address] Advice; Order Request (Order for lightweig... Allergies [...] as of this encounter Miscellaneous Notes * Addendum Note - Rao Cain III, MD - 03/30/2023 12:57 PM EDTAddended by: RAO CAIN on: 03/30/2023 12:57 PM Modules accepted: Orders * Telephone Encounter - Marissa PIO Alva - 03/29/2023 1:53 PM EDT Provider to [...] sent to [facility] phone number is [phone]. Spouse requesting this RX bc pt has trouble walking, he can only stand, please advise, thanks *Hoping to have wheelchair by visit on Sunday* documented in this encounter Plan of Treatment Upcoming Encounters Date Type Specialty Care Team Description 07/18/2023 Office Visit Family Medicine [place] III, Rao Cerda MD [address] [place] [address], [place] [address] Scheduled Procedures Name Priority Associated Diagnoses Date/Ti [...] Primary documented in this encounter Care Teams Fast Food Shift Lead Relationship Specialty Start Date End Date Isabela Rao ROMAN MD [address] [place] [address] PCP - General Family Medicine 10/21/18 documented as of this encounter
--- OUTSIDE RECORDS SUMMARY | 2023-08-30 06:47 | External Medical Summary | Summary of Care ---
Author Name Unknown Organization [facility] Address [address] [place] [address] Phone [phone] Care Team Providers Care Vaccinator Name Role Phone Mitchell ROMAN MD, Jerry Cerda Primary Care Provider [phone] Reason for Visit * Reason Onset Date Comments Re-Check Medication Administration 07/18/2023 Flu an d/or Pneumo Inj Encounter Details Date Type Department Care Team (Late st Contact Info) Description 07/18/2023 4:40 PM EST Office Visit Family Practice [facility] [address] [facility] [place] [place] [address] Jerry Medrano III, MD [address] [facility] [place] [address] Need for prophylactic vaccination and inoculation against influenza*; HTN, goal below 140/90; Prediabetes; Obesity, morbid (more than 100 lbs over ideal weight or BMI > 40) ([facility]) Allergies No known active allergiesdocumented as of this encounter (statuses as of 07/22/2023) Medications Medication Sig Dispensed Refills Start Date [...] EVERY DAY 90 Tablet 1 03/29/2023 Active [facility] Vitamin B-12 1000 MCG Oral Tablet (vitamin b 12) TAKE 1 TABLET BY MOUTH EVERY DAY 100 Tablet 3 05/28/2023 Active Meloxicam 7.5 MG Oral Tablet (Mobic)Indications:P rimary osteoarthritis of both hands TAKE 1 TABLET BY MOUTH IN THE MORNING. FOR PAIN.. 90 Tablet 0 05/24/2023 Active hydrALAZINE HCl 25 MG Oral Tablet (Apresoline)Indicati ons:HTN, goal below 150/90 TAKE 1 TABLET BY MOUTH TWICE A DAY 180 Tablet 3 04/13/2023 3 Discontinue d(Medicatio n List Clean Up) documented as of this encounter (statuses as of 07/22/2023) Active Problems Problem Noted Date Diagnosed Date Prediabetes 07/17/2022 Overview: Per Prediabetes protocol Obesity, morbid (more than 1 00 lbs over ideal weight or BMI > 40) 12/29/2020 Esophageal obstruction 09/15/2019 PAF (paroxysmal atrial fibrillation) 08/14/2019 Dyslipidemia 07/17/2018 Lumbar spinal stenosis 09/01/2013 ADVANCE DIRECTIVE INFORMATION 01/06/2005 Overview: No, Advance Directive brochure offered , patient declined. HTN, goal below 140/90 documented as of this encounter (statuses as of 07/22/2023) Resolved Problems Problem Noted Date Diagnosed Date Resolved Date Anxiety state 09/15/2019 09/15/2019 Morbid obesity with body mas s index (BMI) of 40.0 to 44.9 in adult 10/21/2018 02/07/2019 Prediabetes 10/16/2017 07/15/2020 Overview: Per Prediabetes protocol #1 Body mass index (BMI) of 40. 0 to 44.9 in adult 06/04/2017 10/21/2018 Overview: Per Obesity protocol #1 HTN, goal below 150/90 07/21/201408/03 Obesity, morbid (more than 1 00 lbs over ideal weight or BMI > 40) 02/15/2010 01/30/2017 Overview: Per Obesity Protocol, #19 ICD-10 update of inactive term Chronic prostatitis 07/25/20 14 Umbilical hernia 07/17/2018 SPRAIN LUMBOSACRAL 4 documented as of this encounter (statuses as of 07/22/2023) Immunizations Name Administration Dates Next Due COVID-19 mRNA, LNP-s, No Pre serve, 2-Dose Series ([employer]) 11/03/2020,10/13/2020 PPD 03/21/2023 Pneumococcal Conjugate Vacc, 13 Valent (Prevnar) 01/27/2015 Pneumococcal Polysaccharide PPV23 (Pneumovax) 02/09/2017 SEASONAL INFLUENZA, PF, 6 M & Above, IM , (FLULAVAL or FLUZONE) 05/18/2020,06/03/2018,05/24/2017 Seasonal Influenza, Quadriva lent Hd (Fluzone Hd) 07/18/2023,07/01/2021 Seasonal Influenza, Quadriva lent, No Preserve, IM [...] 10 Q uit: 09/12/1974 Smokeless Tobacco: Never Tobacco Cessation:Counseling Given: Not Answered Alcohol Use Standard Drinks/Week Comments Yes 0 (1 standard drink = 0.6 oz pur e alcohol) 4 cans beer/day PHQ-2 Answer Date Recorded PHQ Adult Total Score 0 12/29/2021 Hunger Vital Sign Answer Date Recorded Worried About Running Out of Food in the Last Ye ar Never true 08/14/2019 Ran Out of Food in the Last Year Never true 08/14/2019 Sex and Gender Information Value Date Recorded Sex Assigned at Not on file Gender Identity Not on file Sexual Orientation Not on file Job Start Date Occupation Industry Not on file Not on file Not on file documented as of this encounter Last Filed Vital Signs Vital Sign Reading Time Taken Comments Blood Pressure 116/56 07/18/2023 4:20 PM EST Pulse 65 07/18/2023 4:20 PM EST Temperature 36.6 C (97.8 F) 07/18/2023 4:20 PM ES T Respiratory Rate 16 07/18/2023 4:20 PM EST Oxygen Saturation - - Inhaled Oxygen Concentration - - Weight - - Height 177.8 cm (5' 10") 07/18/2023 4:20 PM EST Body Mass Index - - documented in this encounter Progress Notes * Jerry Medrano III, MD - 07/18/2023 4:42 PM EST Subjective: Severino Green is a 82 year old male. Chief Complaint Patient presents with Re-Check Medication Administration Flu and/or Pneumo Inj HPI: Follow-up hypertension paroxysmally atrial fibrillation dyslipidemia pre diabetes the most part feels things are stable using motorized cart to get around denies chest pain shortness for breath no bleeding urine or bowels does have swelling of his ankles unable to do compression stockings PMH: Patient Active Problem List Diagnosis Code HTN, goal below 140/90 I10 ADVANCE DIRECTIVE INFORMATION Lumbar spinal stenosis M48.061 Dyslipidemia E78.5 PAF (paroxysmal atrial fibrillation) ([facility]) I48.0 Esophageal obstruction K22.2 Obesity, morbid (more than 100 lbs over ideal weight or BMI > 40) ([facility]) E66.01 Prediabetes R73.03 Current Outpatient Medications Medication Sig Dispense Refill Multiple Vitamins-Minerals (OCUVITE-LUTEIN) TABS Take 1 Tab by mouth daily. Propylene Glycol 0.6 % Ophthalmic Solution Instill 1 Drop into both eyes in the morning. Acetaminophen 500 MG Oral Tablet Take 1 Tablet by mouth every 6 hours as needed for Pain. Cholecalciferol (VITAMIN D-3) 25 MCG (1000 UT) Capsule 1 Capsule at bedtime. Lisinopril 40 MG Oral Tablet Take 1 Tablet by mouth in the morning. 90 Tablet 3 Indapamide 2.5 MG Oral Tablet (Lozol) TAKE 1 TABLET BY MOUTH EVERY DAY 90 Tablet 2 metFORMIN HCl ER 500 MG Oral Tablet Extended Release 24 Hour (Glucophage XR) TAKE 1 TABLET BY MOUTHEVERY DAY 90 Tablet 2 Metoprolol Succinate ER 200 MG Oral Tablet Extended Release 24 Hour TAKE 1 TABLET BY MOUTH EVERY DAY 90 Tablet 3 Gabapentin 100 MG Oral Capsule (Neurontin) Take 1 Capsule by mouth in the morning and 1 Capsule at noon and 1 Capsule before bedtime. 90 Capsule 5 amLODIPine Besylate 10 MG Oral Tablet (Norvasc) TAKE 1 TABLET BY MOUTH EVERY DAY 90 Tablet 2 Atorvastatin Calcium 40 MG Oral Tablet (Lipitor) TAKE 1 TABLET BY MOUTH EVERY DAY 90 Tablet 1 [facility] Vitamin B-12 1000 MCG Oral Tablet (vitamin b 12) TAKE 1 TABLET BY MOUTH EVERY DAY 100 Tablet 3 Meloxicam 7.5 MG Oral Tablet (Mobic) TAKE 1 TABLET BY MOUTH IN THE MORNING. FOR PAIN.. 90 Tablet 0 No current facility-administered medications for this visit. Review of patient's allergies indicates: No Known Allergies Past Medical History: Diagnosis Date Chronic prostatitis Prostatitis, Chronic HTN, goal below 140/90 Hypertension Benign Sprain, lumbosacral chronic low back pain Umbilical hernia small Past Surgical History: Procedure Laterality Date COLONOSCOPY, DIAGNOSTIC (RECTUM) 10/09/2018 adenomatous, hyperplastic & serrated adenomatous polyps, diverticulosis, repeat 6 mo / [facility] COLONOSCOPY, DIAGNOSTIC (RECTUM) 07/22/2019 hyperplastic polyp, fair prep, repeat 3 yrs/COLONOSCOPY FLEXIBLE PROXIMAL DIAGNOSTIC performed by Kun Tapia DO at [facility]COPY [facility] EGD, FLEXIBLE, DIAGNOSTIC 10/09/2018 gastritis, Schatzki ring / [facility] REMOVAL OF APPENDIX REMOVE TONSILS & ADENOIDS, UNDER 12 Objective: The patient is a 82 year old male BP 116/56 | Pulse 65 | Temp 36.6 C (97.8 F) | Resp 16 | Ht 1.778 m (5' 10") | BMI 34.58 kg/m | BSA 2.32 m General: alert, healthy, and no distress Eye Exam: PERRLA, extraocular movements intact, conjunctiva are pink and non- injected, sclera clear Oropharynx: no exudate, no erythema, lips, buccal mucosa, and tongue normal, and mucous membranes are moist Heart: regular rate & rhythm, no murmur, and no gallops Lungs: lungs clear to auscultation Extremities: no clubbing, no cyanosis, trace to +1 edema bilaterally ASSESSMENT: Z23 Need for prophylactic vaccination and inoculation against influenza (primary encounter diagnosis) I10 HTN, goal below 140/90 R73.03 Prediabetes E66.01 Obesity, morbid (more than 100 lbs over ideal weight or BMI > 40) (HCC) PLAN: Flu vaccine given check basic metabolic panel A1c today last blood pressures have all been on the lower side of things will discontinue hydralazine check blood pressure nurse 2 weeks Follow up in 3 month(s). Jerry Medrano III, MD documented in this encounter Plan of Treatment Upcoming Encounters Date Type Department Care Team (Late st Contact Info) Description 12/06/2023 1:00 PM EDT Office Visit Family Practice [facility] [address] [place] [address] Jerry Medrano III, MD [address] [facility] [place] [address] Scheduled Procedures Name Priority Associated Diagnoses Date/Ti me COLONOSCOPY FLEXIBLE PROXIMAL DIAGNOSTIC Recall History of colon polyps Health Maintenance Due Date Last Done Comments DTaP,Tdap,and Td Vaccines (2 - Td or Tdap) 10/11/2022 10/11/2012, 2007 Depression Screening 12/29/2022 12/29/2021 COVID-19 Vaccine (3 - season) 2023 11/03/2020, 10/13/2020 GFR 07/18/2024 07/18/2023, 06/04, 06/28/2021, Additional history exists HbA1c 07/18/2024 07/18/2023, 06/04, 12/18/2019, Additional history exists Albumin/Creatinine Ratio 07/03/2025 07/03/2022 Pneumococcal Vaccine: 65+ Years Completed 02/09/2017, 01/27/2015, 07/21/2003 Zoster Vaccines Completed 12/03/2018, 02/2018, 10/25/2011 Influenza Vaccine (FLU shot) Completed , 07/01/2021, 05/18/2020, Additional history exists GARDASIL-HPV IMMUNIZATION SERIES Aged Out No longer eligible based on patient's age to complete this topic Hepatitis B Aged Out No longer eligi ble based on patient's age to complete this topic MENINGOCOCCAL (MENACTRA/MENVEO) Aged Out No longer eligible based on patient's age to complete this topic documented as of this encounter Medical Devices Not on filedocumented as of this encounter Procedures Procedure Name Priority Date/Time Associated Diagnosis Comments HEMOGLOBIN A1C Routine 07/18/2023 4:50 PM EST Prediabetes BASIC METABOLIC PANEL Routine 07/18/2023 4:50 PM EST HTN, goal below 140/90 documented in this encounter Results * BASIC METABOLIC PANEL (07/18/2023 4:50 PM EST) BUN 14 6 - 20 mg/dL 07/18/2023 11:29 PM EST [facility] Creatinine 0.8 0.6 - 1.2 mg/dL 07/18/2023 11:29 PM EST [facility] Estimated Glomerular Filtration Rate 86 >=60 mL/min 07/18/2023 11:29 PM EST [facility] Comment:eGFR is calculated b ased on the CKD-EPI 2020 equation Sodium 135 135 - 146 mmol/L 07/18/2023 11:29 PM EST [facility] Potassium 3.8 3.5 - 5.1 mmol/L 07/18/2023 11:29 PM EST [facility] Chloride 102 98 - 107 mmol/L 07/18/2023 11:29 PM EST [facility] CO2 25 22 - 32 mmol/L 07/18/2023 11:29 PM EST [facility] Anion Gap 8 7 - 15 mmol/L 07/18/2023 11:29 PM EST [facility] Glucose 103 70 - 120 mg/dL 07/18/2023 11:29 PM EST [facility]ORATORY C Calcium 9.6 8.4 - 10.2 mg/dL 07/18/2023 11:29 PM EST [facility] Blood Venous blood specimen / Unknown Venipuncture / Unknown 07/18/2023 4:50 PM EST 07/18/2023 4:50 PM EST Jerry Medrano III, MD LAB BLOOD ORDERABLE S [facility] [address] [place] [address] * HEMOGLOBIN A1C (07/18/2023 4:50 PM EST) [facility] Hemoglobin A1C 5.0 4.0 - 5.6 % 07/19/2023 1:13 AM EST [facility] Comment:The use of HbA1c to monitor glycemic status is based on normal hemoglobin and HbA composition. This test should not be used in patients with abnormal hemoglobin that affects the half life of the red blood cell or the in vivo glycation rates. Estimated Average Glucose 97 <126 mg/dL 07/19/2023 1:13 AM EST [facility]ORY [facility] Blood Venous blood specimen / Unknown Venipuncture / Unknown 07/18/2023 4:50 PM EST 07/18/2023 4:50 PM EST Jerry Medrano III, MD LAB BLOOD ORDERABLE S [facility] [address] [facility] [place] [address] documented in this encounter Visit Diagnoses Diagnosis Need for prophylactic vaccination and inoculation against influenza- Primary HTN, goal below 140/90 Unspecified essential hypertension Prediabetes Other abnormal glucose Obesity, morbid (more than 100 lbs over ideal weight or BMI > 40) (HCC) Morbid obesity documented in this encounter Care Teams Vaccinator Relationship Specialty Start Date End Date Jerry Medrano III, MD [address] [place] [address] PCP - General Family Medicine 10/21/18 documented as of this encounter
--- OUTSIDE RECORDS SUMMARY | 2023-08-30 06:47 | External Medical Summary | Summary of Care ---
Author Name Unknown Organization [facility] Address [address] [place] [address] Phone [phone] Care Team Providers Care Director Of Physician Practices Name Role Phone Mitchell ROMAN MD, Rao Cerda Primary Care Provider [phone] Reason for Visit * Reason Comments eRx-Medication Refill Encounter Details Date Type Department Care Team Description 05/23/2023 Refill Family Practice [facility] [place] 200 [facility] [place] [address] Rao Cain III, MD 200 [place] [address] Allergies No known active allergiesdocumented as of this encounter (statuses as of 05/28/2023) Medications Medication Sig Dispensed Refills Start Date [...] A DAY 180 Tablet 3 04/13/2023 Active [facility] Vitamin B-12 1000 MCG Oral Tablet (vitamin b 12) TAKE 1 TABLET BY MOUTH EVERY DAY 100 Tablet 3 05/28/2023 Active Meloxicam 7.5 MG Oral Tablet (Mobic)Indications:P rimary osteoarthritis of both hands TAKE 1 TABLET BY MOUTH IN THE MORNING. FOR PAIN.. 90 Tablet 0 05/24/2023 Active [facility] Vitamin B-12 1000 MCG Oral Tablet (vitamin b 12) TAKE 1 TABLET BY MOUTH EVERY DAY 100 Tablet 3 03/15/2022 3 Discontinued documented as of this encounter (statuses as of 05/28/2023) Active Problems Problem Noted Date Prediabetes 07/17/2022 [...] as of this encounter (statuses as of 05/28/2023) Resolved Problems Problem Noted Date Resolved Date [...] as of this encounter (statuses as of 05/28/2023) Immunizations Name Administration Dates Next Due COVID-19 mRNA, LNP-s, No Pre serve, 2-Dose Series ([employer]) 11/03/2020,10/13/2020 PPD 03/21/2023 Pneumococcal Conjugate Vacc, 13 Valent (Prevnar) 01/27/2015 Pneumococcal Polysaccharide PPV23 (Pneumovax) 02/09/2017 Seasonal Influenza, PF, 6 mo ns & Above, IM , (Flulaval) 05/18/2020,06/03/2018,05/24/2017 Seasonal Influenza, Quadriva lent Hd (Fluzone [...] encounter Miscellaneous Notes * Telephone Encounter - Rao Cain III, MD - 05/28/2023 11:07 AM EDTSigned Prescriptions: Disp Refills [facility] Vitamin B-12 1000 MCG Oral Tablet (vit*100 Ta*3 Sig: TAKE 1 TABLET BY MOUTH EVERY DAYAuthorizing Provider: RAO CAIN III * Telephone Encounter - Delia Myles RN - 05/28/2023 8:56 AM EDTPending Prescriptions: Disp Refills [facility] Vitamin B-12 1000 MCG Oral Tablet [Pha*100 Ta*3 Sig: TAKE 1 TABLET BY MOUTH EVERY DAY * Telephone Encounter - Delia Myles RN - 05/28/2023 8:56 AM EDT Pending Prescriptions: Disp Refills [facility] Vitamin B-12 1000 MCG Oral Tablet (vi*100 Ta*3 Sig: TAKE 1 TABLET BY MOUTH EVERY DAY Last Visit: 03/21/2023 (in office), 12/06/2022 (telemedicine) Next Visit: 07/18/2023 Last date the medication was ordered: 03/24 Patient Active Problem List Diagnosis Code HTN, goal below 140/90 I10 ADVANCE DIRECTIVE INFORMATION Lumbar spinal stenosis M48.061 Dyslipidemia E78.5 PAF (paroxysmal atrial fibrillation) ([facility]) I48.0 Esophageal obstruction K22.2 Obesity, morbid (more than 100 lbs over ideal weight or BMI > 40) ([facility]) E66.01 Prediabetes R73.03 Labs: Lab Results Component [...] 02/01/2018 09:47 AM * Telephone Encounter - Interface, E-Rx Ss Inbound - 05/25/2023 4:29 PM EDT Pending Prescriptions: Disp Refills [facility] Vitamin B-12 1000 MCG Oral Tablet [Pha*100 Ta*3 Sig: TAKE 1 TABLET BY MOUTH EVERY DAY * Telephone Encounter - Kitty Stephenson - 05/23/2023 4:19 PM EDTPending Prescriptions: Disp Refills [facility] Vitamin B-12 1000 MCG Oral Tablet [Pha*100 Ta*3 Sig: TAKE 1TABLET BY MOUTH EVERY DAY documented in this encounter Plan of Treatment Upcoming Encounters Date Type Specialty Care Team Description 07/18/2023 Office Visit Family Medicine Rao [place] III, MD [address] [place] [address] Scheduled Procedures Name Priority Associated Diagnoses Date/Ti [...] of this encounter Care Teams Director Of Physician Practices Relationship Specialty Start Date End Date Rao Cain III, MD [address] [place] [address] PCP - General Family Medicine 10/21/18 documented as of this encounter
--- OUTSIDE RECORDS SUMMARY | 2023-08-30 06:47 | External Medical Summary | Summary of Care ---
Author Name Unknown Organization [facility] Address [address] [place] [address] Phone [phone] Care Team Providers Care Diesel Engine Specialist Name Role Phone Mitchell ROMAN MD, Jerry Cerda Primary Care Provider [phone] Reason for Visit * Reason Onset Date Comments Health Maintenance 07/09/2023 Encounter Details Date Type Department Care Team (Late st Contact Info) Description 07/09/2023 Telephone Family Practice [facility] 200 [place] [address] Jeryr Medrano III, MD [address] [facility] [place] [place] [address] Health Maintenance Allergies No known active allergiesdocumented as of this encounter (statuses as of 07/09/2023) Medications Medication Sig Dispensed Refills Start Date [...] 05/28/2023 Active Meloxicam 7.5 MG Oral Tablet (Mobic)Indications:Luz fabio osteoarthritis of both hands TAKE 1 TABLET BY MOUTH IN THE MORNING. FOR PAIN.. 90 Tablet 0 05/24/2023 Active documented as of this encounter (statuses as of 07/09/2023) Active Problems Problem Noted Date Diagnosed Date [...] as of this encounter (statuses as of 07/09/2023) Resolved Problems Problem Noted Date Diagnosed Date [...] as of this encounter (statuses as of 07/09/2023) Immunizations Name Administration Dates Next Due COVID-19 [...] encounter Miscellaneous Notes * Telephone Encounter - Sandra Lopez LPN - 07/09/2023 1:27 PM EST Care Gaps Comprehensive Care Outreach Last Office/Telemedicine Visit: 03/21/2023 (in office), 12/06/2022 (telemedicine) Next Office Visit: 07/18/2023 Hemoglobin AIC Results: Lab Results Component Value Date/Time HEMOGLOBIN A1C - [facility] 5.8 (H) 06/27/2022 11:27 AM HEMOGLOBIN A1C - [facility] 5.8 (H) 12/18/2019 10:30 AM HEMOGLOBIN A1C - [facility] 4.7 11/04/2018 01:14 PM HEMOGLOBIN A1C - [facility] 5.5 02/01/2018 09:47 AM Reviewed Health Maintenance below: Health Maintenance Topic Date Due DTaP,Tdap,and Td Vaccines (2 - Td or Tdap) 10/11/2022 Depression Screening 12/29/2022 Influenza Vaccine (FLU shot) (1) 05/04/2023 COVID-19 Vaccine (3 - 2022- season) 2023 HbA1c 06/27/2023 GFR 06/27/2023 labs Care Gap Outreach Action Taken: Left message documented in this encounter Plan of Treatment Upcoming Encounters Date Type Department Care Team (Late st Contact Info) Description 07/18/2023 4:40 PM EST Office Visit [facility] Practice [facility] [address] [place] [address] Jerry Medrano III, MD 200 [facility] [place] [address] Scheduled Procedures Name Priority Associated Diagnoses Date/Ti me COLONOSCOPY FLEXIBLE PROXIMAL DIAGNOSTIC Recall History of colon polyps Health Maintenance Due Date Last Done Comments DTaP,Tdap,and Td Vaccines (2 - Td or Tdap) 10/11/2022 10/11/2012, 2007 Depression Screening 12/29/2022 12/29/2021 COVID-19 Vaccine (3 - 2022- season) 2023 11/03/2020, 10/13/2020 Influenza Vaccine (FLU shot) (#1) 2023 07/01/2021, [...] filedocumented as of this encounter Care Teams Diesel Engine Specialist Relationship Specialty Start Date End Date Jerry Medrano III, MD [address] [place] [address] [address] PCP - General Family Medicine 10/21/18 documented as of this encounter
--- OUTSIDE RECORDS SUMMARY | 2023-08-30 06:47 | External Medical Summary | Summary of Care ---
Author Name Unknown Organization [facility] Address [address] [place] [address] Phone [phone] Care Team Providers Care Pressfitter Name Role Phone Mitchell ROMAN MD, Rao Cerda Primary Care Provider [phone] Reason for Visit * Reason Comments eRx-Medication Refill Encounter Details Date Type Department Care Team Description 03/28/2023 Refill Family Practice [facility] [place] 200 [facility] [place] [address] Rao Cain III, MD 200 [place] [address] Dyslipidemia, goal to be determined Allergies No known active allergiesdocumented as of [...] EVERY DAY 90 Tablet 1 03/29/2023 Active amLODIPine Besylate 10 MG Oral Tablet [...] encounter Miscellaneous Notes * Telephone Encounter - Jordyn Su RPh - 03/29/2023 8:31 AM EDTSigned Prescriptions: Disp Refills amLODIPine Besylate 10 MG Oral Tablet (Nor*90 Tab*2 Sig: TAKE 1 TABLET BY MOUTH EVERY DAYAuthorizing Provider: RAO CAIN III User: JORDYN SU Atorvastatin Calcium 40 MG Oral Tablet (Li*90 Tab*1 Sig: TAKE 1 TABLET BY MOUTH EVERY DAYAuthorizingProvider: RAO CAIN III User: JORDYN SU documented in this encounter Plan of Treatment Upcoming Encounters Date Type Specialty Care Team Description 07/18/2023 Office Visit Family Medicine Rao Cain III, MD [address] [place] [address] Scheduled Procedures Name Priority Associated Diagnoses Date/Ti [...] as of this encounter Visit Diagnoses Diagnosis Dyslipidemia, goal to be determined Other and unspecified hyperlipidemia documented in this encounter Care Teams Pressfitter Relationship Specialty Start Date End Date Rao Cain III, MD [address] [facility] [facility] [place] [address] PCP - General Family Medicine 10/21/18 documented as of this encounter
--- OUTSIDE RECORDS SUMMARY | 2023-08-30 06:47 | External Medical Summary | Summary of Care ---
Author Name Unknown Organization [facility] Address [address] [place] [address] Phone [phone] Care Team Providers Care Manager Lan Name Role Phone Mitchell ROMAN MD, Rao Cerda Primary Care Provider [phone] Reason for Visit * Reason Onset Date Comments Advice 03/15/2023 Order Request 03/15/2023 Order for lightw eight wheel chair Encounter Details Date Type Department Care Team Description 03/15/2023 Telephone Family Practice [facility] 200 [facility] [address] Rao Cain III, MD [address] [place] [address] Advice; Order Request (Order for lightweig... Allergies [...] sent to [facility] phone number is [phone]. Spouse requesting this RX bc pt has trouble walking, he can only stand, please advise, thanks *Hoping to have wheelchair by visit on Sunday* documented in this encounter Plan of Treatment Upcoming Encounters Date Type Specialty Care Team Description 07/18/2023 Office Visit Family Medicine Harris III, Rao Cerda MD [address] [place] [address], [place] [address] Scheduled Procedures Name Priority Associated Diagnoses Date/Ti [...] Primary documented in this encounter Care Teams Manager Lan Relationship Specialty Start Date End Date Harris Rao ROMAN MD [address] [place] [address] PCP - General Family Medicine 10/21/18 documented as of this encounter
--- OUTSIDE RECORDS SUMMARY | 2023-08-30 06:47 | External Medical Summary ---
Author Name Unknown Address Unknown Organization K01:[facility] [place] [address] [place] [address] Laboratory Report Ordering Provider Test Date Status PAYTON YEH III 07/18/2023 16:50:38 Final Observation Date Value Abnormality Reference (Units ) Status HbA1C 07/18/2023 16:50:38 5.0 4.0-5.6 (% ) Final The use of HbA1c to monitor glycemic status is based on normal hemoglobin and HbA composition. This test should not be used in patients with abnormal hemoglobin that affects the half life of the red blood cell or the in vivo glycation rates. Glucose, estimated average 07/18/2023 16:50:38 97 <126 (mg/dL) Final Performing Location [facility] [place] [address] [place] [address]
--- OUTSIDE RECORDS SUMMARY | 2023-08-30 06:47 | External Medical Summary | Summary of Care ---
Author Name Unknown Organization [facility] Address [address] [place] [address] Phone [phone] Care Team Providers Care Process Development Chemist Name Role Phone Mitchell ROMAN MD, Jerry Cerda Primary Care Provider [phone] Reason for Visit * Reason Onset Date Comments Advice 03/28/2023 Encounter Details Date Type Department Care Team Description 03/28/2023 Telephone Family Practice [facility] [place] [address] [facility] [place] [address] Jerry Medrano III, MD 200 [place] [address] Advice Allergies No known active allergiesdocumented as [...] getting from room to room Fax number: [phone] Attention to Name/Company: [employer] / phone [phone] Any additional information?: Natasha voiced the information [...] to [employer] by Marissa Alva.. Form for [employer] Leonard also faxed. Confirmation received. Total Time including non face to face (minutes): 10 * Telephone Encounter - Marissa Alva LPN - 03/28/2023 2:11 PM EDT Provider to address: patient's calling stating she needs forms faxed to Edison Alberto withthe result of his PPD and [...] Medicine Mitchell ROMAN, Jerry Cerda MD 200 [place] [address] Scheduled Procedures Name Priority Associated Diagnoses Date/Ti [...] filedocumented as of this encounter Care Teams Process Development Chemist Relationship Specialty Start Date End Date Jerry Medrano III, MD [address] [place] [address] [place] [address] PCP - General Family Medicine 10/21/18 documented as of this encounter
--- OUTSIDE RECORDS SUMMARY | 2023-08-30 06:48 | External Medical Summary | Summary of Care ---
Author Name Unknown Organization [facility] Address [address] [place] [address] Phone [phone] Care Team Providers Care Assistance Representative Name Role Phone Mitchell ROMAN MD, Jerry Cerda Primary Care Provider [phone] Reason for Visit * Reason Onset Date Comments Advice 03/28/2023 Encounter Details Date Type Department Care Team Description 03/28/2023 Telephone Family Practice [facility] [place] 200 [facility] [place] [address] Jerry Medrano III, MD 200 [facility] [address] Advice Allergies No known active allergiesdocumented as [...] before bedtime. 90 Capsule 5 03/19/2023 Active documented as of this encounter (statuses [...] mRNA, LNP-s, No Pre serve, 2-Dose Series ([employer]) 11/03/2020,10/13/2020 Influenza, Whole Virus 07/04/1999,1997,06/03/1997,06/03 PPD 03/21/2023 [...] encounter Miscellaneous Notes * Telephone Encounter - Nancy Connolly RN - 03/28/2023 3:44 PM EDT Provider to address: Advice Reason for Call: Advice Contact: Telephone Call Contact Type: Orders Outcome: Pt's T& DME for [employer] has been refaxred to [employer] by Marissa Alva.. Form for [employer] Leonard also faxed. Confirmation received. Total Time including non face to face (minutes): 10 * Telephone Encounter - Marissa Alva LPN - 03/28/2023 2:11 PM EDT Provider to address: patient's calling stating she needs forms faxed to Ballantine Remy withthe result of his PPD and the [...] Family Medicine Mitchell ROMAN, Jerry Cerda MD [address] [place] [address] Scheduled Procedures Name Priority Associated Diagnoses Date/Ti [...] filedocumented as of this encounter Care Teams Assistance Representative Relationship Specialty Start Date End Date Jerry Medrano III, MD 200 [place] [address] PCP - General Family Medicine 10/21/18 documented as of this encounter
--- OUTSIDE RECORDS SUMMARY | 2023-08-30 06:48 | External Medical Summary | Summary of Care ---
Author Name Unknown Organization [facility] Address [address] [place] [address] Phone [phone] Care Team Providers Care Comsec Manager Name Role Phone Mitchell ROMAN MD, Jerry Cerda Primary Care Provider [phone] Reason for Visit * Reason Onset Date Comments TB Test Reading 03/24/2023 Encounter Details Date Type Department Care Team Description 03/24/2023 Nurse Only Ancillary [facility] [address] [place] [address] Wkend/Gw, Nurse [facility] [place] [address] [place] [address] TB Test Reading Allergies No known active allergiesdocumented as of this encounter (statuses as of 03/24/2023) Medications Medication Sig Dispensed Refills Start Date [...] as of this encounter (statuses as of 03/24/2023) Active Problems Problem Noted Date Prediabetes 07/17/2022 [...] as of this encounter (statuses as of 03/24/2023) Resolved Problems Problem Noted Date Resolved Date [...] as of this encounter (statuses as of 03/24/2023) Immunizations Name Administration Dates Next Due COVID-19 [...] on file documented as of this encounter Progress Notes * Kimberly Fermin LPN - 03/24/2023 3:21 PM EDT Patient here for PPD reading. PPD Results: 0 mm, negative Read at 3:21 pm on 03/24/2023 documented in this encounter Plan of Treatment Upcoming Encounters Date Type Specialty Care Team Description 07/18/2023 Office Visit Family Medicine Mitchell III, Jerry Cerda MD [address] [place] [address] Scheduled Procedures Name Priority Associated Diagnoses Date/Ti me COLONOSCOPY FLEXIBLE PROXIMAL DIAGNOSTIC Recall History of colon polyps Health Maintenance Due Date Last Done Comments COVID-19 Vaccine (3 - Pfizer series) 12/29/2020 11/03/2020, 10/13/2020 DTaP,Tdap,and Td Vaccines (2 - Td or Tdap) 10/11/2022 10/11/2012, 2007, 2007 Depression Screening, Annual for Pts 12 [...] filedocumented as of this encounter Care Teams Comsec Manager Relationship Specialty Start Date End Date Jerry Medrano III, MD [address] [place] [address], [place] [address] PCP - General Family Medicine 10/21/18 documented as of this encounter
--- OUTSIDE RECORDS SUMMARY | 2023-08-30 06:48 | External Medical Summary | Summary of Care ---
Author Name Unknown Organization [facility] Address [address] [place] [address] Phone [phone] Care Team Providers Care Core Feeder Name Role Phone Mitchell ROMAN MD, Jerry Cerda Primary Care Provider [phone] Reason for Visit * Reason Comments Re-Check Encounter Details Date Type Department Care Team Description 03/21/2023 Office Visit Family Practice [facility] [place] 200 [facility] [place] [address] Jerry Medrano III, MD 200 [facility] [place] [address] HTN, goal below 140/90*; Prediabetes; Dyslipidemia; PPD screening test; Ambulatory dysfunction Allergies No known active allergiesdocumented as of [...] before bedtime. 90 Capsule 5 03/19/2023 Active Silver sulfADIAZINE 1 % External Cream [...] mRNA, LNP-s, No Pre serve, 2-Dose Series ([employer]) 11/03/2020,10/13/2020 PPD 03/21/2023 Pneumococcal Conjugate Vacc, 13 [...] Sign Reading Time Taken Comments Blood Pressure 109/65 03/21/2023 5:15 PM EDT Pulse 67 03/21/2023 5:15 PM EDT Temperature 36.7 C (98 F) 03/21/2023 5:15 PM EDT Respiratory Rate 16 03/21/2023 5:15 PM EDT Oxygen Saturation - - Inhaled Oxygen Concentration - - Weight - - Height - - Body Mass Index - - documented in this encounter Progress Notes * Jerry Medrano III, MD - 03/21/2023 6:21 PM EDT Follow up pre diabetes hypertension paroxysmally atrial fibrillation obesity lumbar stenosis now unable to walk has had multiple falls despite walker pretty much on a scooter needs wheelchair large wheeled light weight form completion for respite care for spouse needs done denies chest pain shortness breast no bleeding urine or bowels decreased appetite ER notes reviewed PMH: Patient Active Problem List Diagnosis Code HTN, goal below 140/90 I10 ADVANCE DIRECTIVE INFORMATION Lumbar spinal stenosis M48.061 Dyslipidemia E78.5 PAF (paroxysmal atrial fibrillation) ([facility]) I48.0 Esophageal obstruction K22.2 Obesity, morbid (more than 100 lbs over ideal weight or BMI > 40) ([facility]) E66.01 Prediabetes R73.03 Current Outpatient Medications Medication [...] (1000 UT) Capsule 1 Capsule at bedtime. [facility] Vitamin B-12 1000 MCG Oral Tablet (vitamin b 12) TAKE 1 TABLET BY MOUTH EVERY DAY 100 Tablet 3 amLODIPine Besylate 10 MG Oral Tablet (Norvasc) TAKE 1 TABLET BY MOUTH EVERY DAY 90 Tablet 2 Lisinopril 40 MG Oral Tablet Take 1 Tablet by mouth in the morning. 90 Tablet 3 Atorvastatin Calcium 40 MG Oral Tablet (Lipitor) TAKE 1 TABLET BY MOUTH EVERY DAY 90 Tablet 1 hydrALAZINE HCl 25 MG Oral Tablet (Apresoline) TAKE 1 TABLET BY MOUTH TWICE A DAY 180 Tablet 1 Meloxicam 7.5 MG Oral Tablet (Mobic) Take 1 Tablet by mouth in the morning. for pain.. 90 Tablet 1 Indapamide 2.5 MG Oral Tablet (Lozol) TAKE 1 TABLET BY MOUTH EVERY DAY 90 Tablet 2 metFORMIN HCl ER 500 MG Oral Tablet Extended Release 24 Hour (Glucophage XR) TAKE 1 TABLET BY MOUTH EVERY DAY 90 Tablet 2 Metoprolol Succinate ER 200 MG Oral Tablet Extended Release 24 Hour TAKE 1 TABLET BY MOUTH EVERY DAY 90 Tablet 3 Gabapentin 100 MG Oral Capsule (Neurontin) Take 1 Capsule by mouth in the morning and 1 Capsuleat noon and 1 Capsule before bedtime. 90 Capsule 5 No current facility-administered medications for this visit. Review of patient's allergies indicates: No Known Allergies Past Medical History: Diagnosis Date Chronic prostatitis Prostatitis, Chronic HTN, goal below 140/90 Hypertension Benign Sprain, lumbosacral chronic low back pain Umbilical hernia small Past Surgical History: Procedure Laterality Date COLONOSCOPY, DIAGNOSTIC (RECTUM) 10/09/2018 adenomatous, hyperplastic & serrated adenomatous polyps, diverticulosis, repeat 6 mo / [facility] COLONOSCOPY, DIAGNOSTIC (RECTUM) 07/22/2019 hyperplastic polyp, fair prep, repeat 3 yrs/COLONOSCOPY FLEXIBLE PROXIMAL DIAGNOSTIC performed by Kun Tapia DO at [facility] EGD, FLEXIBLE, DIAGNOSTIC 10/09/2018 gastritis, Schatzki ring / [facility] REMOVAL OF APPENDIX REMOVE TONSILS & ADENOIDS, UNDER 12 Objective: The patient is a 82 year old male BP 109/65 | Pulse 67 | Temp 36.7 C (98 F) | Resp 16 General: alert, healthy and no distress Eye Exam: PERRLA, extraocular movements intact, conjunctiva are pink and non- injected, sclera clear Oropharynx: no exudate, no erythema, lips, buccal mucosa, and tongue normal and mucous membranes are moist Heart: regular rate & rhythm, no murmur and no gallops Lungs: lungs clear to auscultation, rhonchi rales rubs wheezes Extremities: no edema, no clubbing, no cyanosis ASSESSMENT: I10 HTN, goal below 140/90 (primary encounter diagnosis) R73.03 Prediabetes E78.5 Dyslipidemia Z11.1 PPD screening test R26.2 Ambulatory dysfunction PLAN: PPD placed needs this for form completion DME wheelchair light weight large wheels will be faxed tosurgical supply Total time 49 minutes Follow up in 3 month(s). Jerry Medrano III, MD documented in this encounter Plan of Treatment Upcoming Encounters Date Type Specialty Care Team Description 07/18/2023 Office Visit Family Medicine Jerry Medrano III, MD 200 [facility] [place] [address] Scheduled Procedures Name Priority Associated Diagnoses Date/Ti [...] Procedure Name Priority Date/Time Associated Diagnosis Comments PPD Routine 03/24/2023 3:21 PM EDT PPD screening test documented in this encounter Results * PPD (03/24/2023 3:21 PM EDT) PPD induration 0.00 mm DATE OF PPD PLACEMENT 03/21/2023 HOURS BETWEEN PPD PLACEMENT AND READING 03/24/2023 3:21 PM EDT Jerry Medrano III, MD LABORATORY documented in this encounter Visit Diagnoses Diagnosis HTN, goal below 140/90- Primary Unspecified essential hypertension Prediabetes Other abnormal glucose Dyslipidemia Other and unspecified hyperlipidemia PPD screening test Screening examination for pulmonary tuberculosis Ambulatory dysfunction documented in this encounter Care Teams Core Feeder Relationship Specialty Start Date End Date Jerry Mderano III, MD [address] [place] [address], [place] [address] PCP - General Family Medicine 10/21/18 documented as of this encounter"
--- OUTSIDE RECORDS SUMMARY | 2023-08-30 06:48 | External Medical Summary | Summary of Care ---
Author Name Unknown Organization [facility] Address [address] [place] [address] Phone [phone] Care Team Providers Care Core Dipper Name Role Phone iMtchell ROMAN MD, Jerry Cerda Primary Care Provider [phone] Reason for Visit * Reason Onset Date Comments Advice 03/15/2023 Encounter Details Date Type Department Care Team Description 03/15/2023 Telephone Family Practice [facility] [place] 200 [facility] [place] [address] Jerry Medrano III, MD 200 [facility] [place] [address] Advice Allergies No known active allergiesdocumented as of this encounter (statuses as of 03/15/2023) Medications Medication Sig Dispensed Refills Start Date [...] Active Atorvastatin Calcium 40 MG Oral Tablet (Lipitor)Indications: Dyslipidemia, goal to be determined TAKE 1 TABLET BY MOUTH EVERY DAY 90 Tablet 1 10/02/2022 Active hydrALAZINE HCl 25 MG Oral Tablet (Apresoline)Indicatio ns:HTN, goal below 150/90 TAKE 1 TABLET BY MOUTH TWICE A DAY 180 Tablet 1 10/10/2022 Active Silver sulfADIAZINE 1 % External Cream (Silvadene)Indication s:Cellulitis of toe, left Apply topically to affected area daily. Apply to burn 50 g 1 10/16/2022 Active Meloxicam 7.5 MG Oral Tablet (Mobic)Indications:Pr imary osteoarthritis of both hands Take 1 Tablet [...] EVERY DAY 90 Tablet 3 01/05/2023 Active busPIRone HCl 5 MG Oral Tablet (Buspar) Take 1 Tablet by mouth in the morning and 1 Tablet before bedtime. 60 Tablet 5 02/03/2023 Active documented as of this encounter (statuses as of 03/15/2023) Active Problems Problem Noted Date Prediabetes 07/17/2022 [...] as of this encounter (statuses as of 03/15/2023) Resolved Problems Problem Noted Date Resolved Date [...] as of this encounter (statuses as of 03/15/2023) Immunizations Name Administration Dates Next Due COVID-19 mRNA, LNP-s, No Pre serve, 2-Dose Series ([employer]) 11/03/2020,10/13/2020 Pneumococcal Conjugate Vacc, 13 Valent (Prevnar) [...] sent to [facility] phone number is [phone]. Spouse requesting this RX bc pt has trouble walking, he can only stand, please advise, thanks *Hoping to have wheelchair by visit on Sunday* documented in this encounter Plan of Treatment Upcoming Encounters Date Type Specialty Care Team Description 03/21/2023 Office Visit Family Medicine Jerry Medrano III, MD [address] [place] [address] Scheduled Procedures Name Priority Associated Diagnoses Date/Ti [...] filedocumented as of this encounter Care Teams Core Dipper Relationship Specialty Start Date End Date Jerry Medrano III, MD [address] [place] [address] PCP - General Family Medicine 10/21/18 documented as of this encounter
--- OUTSIDE RECORDS SUMMARY | 2023-08-30 06:48 | External Medical Summary | Summary of Care ---
Author Name Unknown Organization [facility] Address [address] [place] [address] Phone [phone] Care Team Providers Care Senior Hadoop Developer Name Role Phone Mitchell ROMAN MD, John E Primary Care Provider [phone] Encounter Details Date Type Department Care Team Description 03/05/2023 Orders Only Family Practice [facility] [place] 200 [facility] [place] [address] Jerry Medrano III, MD 200 [facility] [place] [address] Allergies No known active allergiesdocumented as of this encounter (statuses as of 03/05/2023) Medications Medication Sig Dispensed Refills Start Date [...] as of this encounter (statuses as of 03/05/2023) Active Problems Problem Noted Date Prediabetes 07/17/2022 [...] as of this encounter (statuses as of 03/05/2023) Resolved Problems Problem Noted Date Resolved Date [...] as of this encounter (statuses as of 03/05/2023) Immunizations Name Administration Dates Next Due COVID-19 mRNA, LNP-s, No Pre serve, 2-Dose Series ([employer]) 11/03/2020,10/13/2020 Pneumococcal Conjugate Vacc, 13 Valent (Prevnar) [...] Team Description 03/21/2023 Office Visit Family Medicine Mitchellsneha ROMAN, Jerry Cerda MD [address] [place] [address] Scheduled Procedures Name Priority Associated Diagnoses Date/Ti [...] Procedure Name Priority Date/Time Associated Diagnosis Comments OUTSIDE LAB-CORONAVIRUS (COVID-19) Routine 03/02/2023 documented in this encounter Results * OUTSIDE LAB-CORONAVIRUS (COVID-19) (03/02/2023) [id number] E LAB NEGATIVE NEGATIVE OUTSIDE LAB (SEE SCANNED REPORT) 03/02/2023 History Per Patient LABORATORY OUTSIDE LAB (SEE SCANNED REPORT) documented in this encounter Care Teams Senior Hadoop Developer Relationship Specialty Start Date End Date Jerry Medrano III, MD [address] [place] [address], [place] [address] PCP - General Family Medicine 10/21/18 documented as of this encounter
--- OUTSIDE RECORDS SUMMARY | 2023-08-30 06:48 | External Medical Summary | Summary of Care ---
Author Name Unknown Organization [facility] Address [address] [place] [address] Phone [phone] Care Team Providers Care Restaurant Bartender Name Role Phone Mitchell ROMAN MD, Jerry Cerda Primary Care Provider [phone] Reason for Visit * Reason Onset Date Comments TB Test Reading 03/24/2023 Encounter Details Date Type Department Care Team Description 03/24/2023 Nurse Only Ancillary [facility] [address] [place] [address] Wkend/Gw, Nurse [facility] [address] [place] [address] TB Test Reading Allergies No known active allergiesdocumented as of this encounter (statuses as of 03/26/2023) Medications Medication Sig Dispensed Refills Start Date [...] as of this encounter (statuses as of 03/26/2023) Active Problems Problem Noted Date Prediabetes 07/17/2022 [...] as of this encounter (statuses as of 03/26/2023) Resolved Problems Problem Noted Date Resolved Date [...] as of this encounter (statuses as of 03/26/2023) Immunizations Name Administration Dates Next Due COVID-19 [...] Medicine Mitchell III, Jerry Cerda MD 200 [facility] [place] [address] Scheduled Procedures Name Priority Associated Diagnoses Date/Ti [...] filedocumented as of this encounter Care Teams Restaurant Bartender Relationship Specialty Start Date End Date Jerry Medrano III, MD [address] [place] [address], [place] [address] PCP - General Family Medicine 10/21/18 documented as of this encounter
--- OUTSIDE RECORDS SUMMARY | 2023-08-30 06:48 | External Medical Summary | Summary of Care ---
Author Name Unknown Organization [facility] Address [address] [place] [address] Phone [phone] Care Team Providers Care Players Club Representative Name Role Phone Mitchell ROMAN MD, Jerry Cerda Primary Care Provider [phone] Reason for Visit * Reason Onset Date Comments Advice 03/28/2023 Encounter Details Date Type Department Care Team Description 03/28/2023 Telephone Family Practice [facility] [place] 200 [facility] [place] [address] Jerry Medrano III, MD 200 [place] [address] Advice Allergies No known active allergiesdocumented as [...] mRNA, LNP-s, No Pre serve, 2-Dose Series ([employer]) 11/03/2020,10/13/2020 PPD 03/21/2023 Pneumococcal Conjugate Vacc, 13 [...] calling stating she needs forms faxed to Delia Alberto withthe result of his PPD and [...] Jerry Medrano III, MD [address] [place] [address] Scheduled Procedures Name Priority Associated Diagnoses Date/Ti [...] filedocumented as of this encounter Care Teams Players Club Representative Relationship Specialty Start Date End Date Jerry Medrano III, MD [address] [place] [address] PCP - General Family Medicine 10/21/18 documented as of this encounter
--- NOTE | 2023-08-30 07:07 | Emergency Department Note ---
Impression & Plan COVID-19, Weakness, Elevated troponin ED Provider Note NAME: KELLEN MIMS AGE: 82 SEX: M : 1940 ARRIVES VIA: Ambulance INFORMANT: Patient ED PROVIDER(S): Mario Pina DO CHIEF COMPLAINT: weakness HPI: Patient is an 82-year-old male with a past medical history of paroxysmal A- fib, alcohol use, dyslipidemia, hypertension and prediabetes that presents the ER for weakness. He admits to a cough and congestion and runny nose which has been present for the past 2 days. Has been bringing up white phlegm. He denies any chest pain or shortness of breath. No belly pain, nausea, vomiting or diarrhea. No dysuria, urgency or frequency. He notes that he rolled out of bed and did not hit his head 3 times over the past night. He is having trouble getting himself back up and into bed as he is very weak. He has been feeling hot and cold at night. No recorded fevers at home. ADDITIONAL HISTORY OBTAINED: Per HPI Chronic Medical/Social Conditions Affecting Care: Per HPI PAST MEDICAL HISTORY:See Below PAST SURGICAL HISTORY:See Below FAMILY HISTORY:See Below SOCIAL HISTORY:See Below HOME MEDICATIONS:See Below ALLERGIES:See Below VITALS:See Below PHYSICAL EXAMINATION: GENERAL: Sitting up in bed, alert, well appearing, well nourished, no distress, non-toxic EYE EXAM: normal conjunctiva. OROPHARYNX: no exudate, no erythema, lips, buccal mucosa, and tongue normal and mucous membranes are moist NECK: supple, no nuchal rigidity, no adenopathy, non-tender LUNGS: Clear to auscultation. Normal chest wall mechanics HEART: no murmurs, S1 normal and S2 normal ABDOMEN: abdomen soft, non-tender, normo-active bowel sounds, no masses, no rebound or guarding. BACK: Back is symmetrical on inspection and there is no deformity, no midline tenderness, no CVA tenderness. SKIN: no rashes and no bruising UPPER EXTREMITIES: upper extremities are grossly normal. LOWER EXTREMITIES: No pitting edema. NEURO EXAM: Normal sensorium, cranial nerves II-XII intact, normal speech, no weakness of arms, weakness with plantar and dorsiflexion bilaterally which patient notes is old. Otherwise patient able to flex and extend at the hips and knees slightly. MEDICAL DECISION MAKING: Patient is an 82-year-old male who presents ER for weakness. IV was established blood work is obtained. He also has cyril mitten upper respiratory symptoms. Labs show no significant leukocytosis or anemia. BMP with mild hyponatremia at 133. Troponin was elevated and trended up to 37. Mag at 1.5. Pro-Charles was normal. UA was clean. COVID-positive. Chest x-ray was unremarkable. He was covered with IV antibiotics. He was not given fluid boluses due to the pitting edema and likely heart failure. He was updated bedside discussed with the hospitalist admitted for further workup for his weakness. CT head and cervical spine was negative. No other complaints from the fall. Consults/Care Managements Discussions: Per [facility] Triage Nursing notes reviewed. Limited review of prior medical records performed Vital Signs: reviewed and remarkable for febrile Differential diagnosis: Infection, dehydration, metabolic abnormality, hypo/hyperglycemia, electrolyte disturbance, anemia, hypoxia, cardiac sources, intracerebral event, toxicologic, neurologic, as well as other pathologies. ER treatment provided: See below Diagnostics interpreted by me include EKG and cardiac monitoring as listed below: -Cardiac Monitoring: An order was placed for continuous cardiac monitoring. The monitor shows a rate of 80 with sinus rhythm. -ECG: Sinus rhythm rate 71 Normal axis No PVCs PACs present QTc 469 Right bundle branch block -Laboratory studies:Interpreted by me as stated above in MDM and shown below. Imaging studies: Xrays: As interpreted by me: Portable AP upright 1 view of the chest shows no focal infiltrate. CTs show: CT head and cervical spine was negative. Procedures:none Critical Care: None Past Med/Surg History Medical History (Updated 08/30/23 @ 13:07 by Mario Pina DO) Symptomatic anemia Acute GI bleeding PAF (paroxysmal atrial fibrillation) Alcohol use Lumbar spinal stenosis Dyslipidemia Prediabetes HTN (hypertension) Umbilical hernia Hx of spinal stenosis Surgical History History of tonsillectomy and adenoidectomy History of appendectomy Family History Mother CHF (congestive heart failure) Social History Smoking Status: Former smoker Second Hand Exposure: No; Do You Dip or Chew Tobacco: No; Hx Alcohol Use: Yes Alcohol type: beer Alcohol Intake Frequency Comment: 6-7 beers/day Hx Substance Use: No Preferred Language: Citizen Of [place] Communication Ability: Effective Yarn Twister Required: No Beliefs That Will Affect Care: None marital status: Current Living Situation: Spouse Feels Safe at Home: Yes Assistive Devices: Cane Allergies Allergies Allergy/AdvReac Type Severity Reaction Status Date / Time No Known Allergies Allergy Verified 03/02/23 17:08 Home Meds Home Medications Medication Instructions Recorded Confirmed amlodipine 10 mg tablet (Norvasc) 10 mg PO QAM 10/08/18 08/30/23 atorvastatin 40 mg tablet (Lipitor) 40 mg PO HS 10/08/18 08/30/23 cyanocobalamin (vitamin B-12) 1,000 mcg PO HS 10/08/18 08/30/23 1,000 mcg tablet (Vitamin B-12) indapamide 2.5 mg tablet 2.5 mg PO QAM 10/08/18 08/30/23 propylene glycol 0.6 % eye drops 1 drp OPB QAM 10/08/18 08/30/23 (Systane Balance) vit A 300 mcg-C 200 mg-E 27 1 tab PO QAM 10/08/18 08/30/23 mg-lutein 2 mg and minerals tablet (Ocuvite with Lutein) metformin 500 mg 24 hr 500 mg PO PM 10/11/18 08/30/23 tablet,extended release (gastric retention) metoprolol succinate 200 mg 200 mg PO QAM 10/11/18 08/30/23 tablet,extended release 24 hr (Toprol XL) cholecalciferol (vitamin D3) 25 25 mcg PO HS 03/02/23 08/30/23 mcg (1,000 unit) capsule (Vitamin D3) gabapentin 100 mg capsule See Rx Instructions .Route .COMPLEX 03/02/23 08/30/23 lisinopril 40 mg tablet 40 mg PO QAM 03/02/23 08/30/23 meloxicam 7.5 mg tablet 7.5 mg PO QAM 03/02/23 08/30/23 Results & Data (ED) Vital Signs Vital Signs - 24 hr 08/30/23 06:55 08/30/23 07:36 08/30/23 08:00 Temperature 38 C H Temperature Source Oral Pulse Rate 78 67 67 Respiratory Rate 16 24 15 Respiratory Effort / Characteristics Non-Labored Spontaneous Respiratory Depth Normal Respiratory Pattern Regular Blood Pressure 134/76 115/63 Blood Pressure Mean 95 80 Pulse Oximetry 94 94 100 Oxygen Delivery Method Room Air Room Air Room Air Sepsis Recent Fever Within 48 Hours Yes Sepsis New/Unexplained Change in Mental Status N/A Sepsis Action Taken by Nursing No Action Required 08/30/23 08:30 08/30/23 08:31 Temperature Temperature Source Pulse Rate 68 88 Respiratory Rate 24 Respiratory Effort / Characteristics Respiratory Depth Respiratory Pattern Blood Pressure Blood Pressure Mean Pulse Oximetry 97 Oxygen Delivery Method Room Air Sepsis Recent Fever Within 48 Hours Sepsis New/Unexplained Change in Mental Status Sepsis Action Taken by Nursing Laboratory Data 08/30/23 07:10 08/30/23 07:10 Lab Results 08/30/23 08/30/23 08/30/23 Range/Units 07:10 07:13 07:25 WBC 6.46 (4.8-10.8) K/ul RBC 4.50 L (4.70-6.10) M/uL Hgb 15.0 (14.0-18.0) g/dl Hct 43.5 (42.0-52.0) % MCV 96.7 (80.0-100.0) fL MCH 33.3 (25.0-34.0) pg MCHC 34.5 (32.0-36.0) g/dL RDW Std Deviation 45.1 (36.4-46.3) fL RDW Coeff of Steven 12.7 (11.5-14.5) % Plt Count 134 (130-400) K/uL MPV 10.9 (9.4-12.4) fL Immature Gran % (Auto) 0.3 % Neut % (Auto) 64.4 % Lymph % (Auto) 18.6 % [place] % (Auto) 15.0 % Eos % (Auto) 0.9 % Baso % (Auto) 0.8 % Neut # (Auto) 4.16 (1.40-6.50) K/uL Lymph # (Auto) 1.20 (1.20-3.40) K/uL [place] # (Auto) 0.97 H (0.11-0.59) K/uL Eos # (Auto) 0.06 (0.00-0.50) K/uL Baso # (Auto) 0.05 (0.00-0.20) K/uL Immature Gran # (Auto) 0.02 (0.01-0.20) K/uL PT 12.3 H (9.0-12.0) Seconds INR 1.1 (0.9-1.1) Sodium 133 L (136-145) mmol/L Potassium 3.9 (3.5-5.1) mmol/L Chloride 99 (98-107) mmol/L Carbon Dioxide 27 (21-32) mmol/L Anion Gap 7 (3-11) BUN 14 (6-23) mg/dl Creatinine 0.80 (0.6-1.4) mg/dl Est Cr Clr Drug Dosing 85.3 ml/min Est GFR ( Amer) 95.1 ml/min Est GFR (Non-Af Amer) 82.0 ml/min BUN/Creatinine Ratio 17.5 (10-20) Glucose 96 (70-99(Fasting)) mg/dl Lactate 1.5 (0.4-2.0) mmol/L Calcium 9.7 (8.6-10.3) mg/dl Magnesium 1.5 L (1.7-2.4) mg/dl Total Bilirubin 0.8 (0.2-1.0) mg/dl Direct Bilirubin 0.2 (0-0.2) mg/dl AST 34 (13-39) U/L ALT 16 (7-52) U/L Alkaline Phosphatase 82 (34-104) U/L Troponin I High Sens 47.5 H (0-20) pg/ml B-Natriuretic Peptide 280 H (0-100) pg/ml Total Protein 6.9 (6.0-8.3) gm/dl Albumin 3.8 (3.4-5.0) gm/dl Procalcitonin < 0.05 (0-0.5) ng/ml Urine Color Yellow Urine Appearance Clear (Clear) Urine pH 7.5 (4.5-7.5) Ur Specific Burkett 1.015 (1.000-1.030) Urine Protein Trace H (Negative) Urine Glucose (UA) Negative (Negative) Urine Ketones Negative (Negative) Urine Blood Negative (Negative) Urine Nitrite Negative (Negative) Urine Bilirubin Negative (Negative) Urine Urobilinogen Negative (Negative) Ur Leukocyte Esterase Negative (Negative) Urine WBC (Auto) 0 (0-5) /hpf Urine RBC (Auto) 0-4 (0-4) /hpf U Hyaline Cast (Auto) 0 (0-5) /lpf U Epithel Cells (Auto) 0-5 (0-5) /lpf Urine Bacteria (Auto) Negative (Negative) SARS-CoV-2 (PCR) POSITIVE A* (Negative) Influenza Type A (PCR) Negative (Neg) Influenza Type B (PCR) Negative (Neg) RSV (RT-PCR) Negative (Neg) 08/30/23 Range/Units 08:57 WBC (4.8-10.8) K/ul RBC (4.70-6.10) M/uL Hgb (14.0-18.0) g/dl Hct (42.0-52.0) % MCV (80.0-100.0) fL MCH (25.0-34.0) pg MCHC (32.0-36.0) g/dL RDW Std Deviation (36.4-46.3) fL RDW Coeff of Steven (11.5-14.5) % Plt Count (130-400) K/uL MPV (9.4-12.4) fL Immature Gran % (Auto) % Neut % (Auto) % Lymph % (Auto) % [place] % (Auto) % Eos % (Auto) % Baso % (Auto) % Neut # (Auto) (1.40-6.50) K/uL Lymph # (Auto) (1.20-3.40) K/uL [place] # (Auto) (0.11-0.59) K/uL Eos # (Auto) (0.00-0.50) K/uL Baso # (Auto) (0.00-0.20) K/uL Immature Gran # (Auto) (0.01-0.20) K/uL PT (9.0-12.0) Seconds INR (0.9-1.1) Sodium (136-145) mmol/L Potassium (3.5-5.1) mmol/L Chloride (98-107) mmol/L Carbon Dioxide (21-32) mmol/L Anion Gap (3-11) BUN (6-23) mg/dl Creatinine (0.6-1.4) mg/dl Est Cr Clr Drug Dosing ml/min Est GFR ( Amer) ml/min Est GFR (Non-Af Amer) ml/min BUN/Creatinine Ratio (10-20) Glucose (70-99(Fasting)) mg/dl Lactate (0.4-2.0) mmol/L Calcium (8.6-10.3) mg/dl Magnesium (1.7-2.4) mg/dl Total Bilirubin (0.2-1.0) mg/dl Direct Bilirubin (0-0.2) mg/dl AST (13-39) U/L ALT (7-52) U/L Alkaline Phosphatase (34-104) U/L Troponin I High Sens 37.4 H D (0-20) pg/ml B-Natriuretic Peptide (0-100) pg/ml Total Protein (6.0-8.3) gm/dl Albumin (3.4-5.0) gm/dl Procalcitonin (0-0.5) ng/ml Urine Color Urine Appearance (Clear) Urine pH (4.5-7.5) Ur Specific Burkett (1.000-1.030) Urine Protein (Negative) Urine Glucose (UA) (Negative) Urine Ketones (Negative) Urine Blood (Negative) Urine Nitrite (Negative) Urine Bilirubin (Negative) Urine Urobilinogen (Negative) Ur Leukocyte Esterase (Negative) Urine WBC (Auto) (0-5) /hpf Urine RBC (Auto) (0-4) /hpf U Hyaline Cast (Auto) (0-5) /lpf U Epithel Cells (Auto) (0-5) /lpf Urine Bacteria (Auto) (Negative) SARS-CoV-2 (PCR) (Negative) Influenza Type A (PCR) (Neg) Influenza Type B (PCR) (Neg) RSV (RT-PCR) (Neg) Administered Medications Gabapentin (Gabapentin 100 Mg Cap) 100 mg PO DAILY [facility] Stop: 09/29/23 11:19 Last Admin: 08/30/23 12:16 Dose: 100 mg Documented By: ALVIN Metoprolol Succinate (Metoprolol Succ 50mg Ext Rel Tab) 200 mg PO QAM [facility] Stop: 09/29/23 11:19 Last Admin: 08/30/23 12:17 Dose: Not Given Documented By: MMG Discontinued Medications Furosemide (Furosemide 40 Mg/4 Ml Vial) 40 mg IV ONE ONE Stop: 08/30/23 11:05 Last Admin: 08/30/23 12:16 Dose: 40 mg Documented By: ALVIN Ceftriaxone Sodium (Rocephin) 2,000 mg in 50 mls @ 100 mls/hr IV NOW STA Stop: 08/30/23 08:44 Last Infusion: 08/30/23 09:15 Dose: Infused Documented By: Admin: 08/30/23 08:28 Dose: 100 mls/hr Documented By: ALEJANDRO Magnesium Sulfate/Dextrose (Magnesium Sulfate / D5w) 1 gm in 100 mls @ 50 mls/hr IV ONE STA Stop: 08/30/23 11:45 Last Admin: 08/30/23 10:55 Dose: 50 mls/hr Documented By: ALVIN Imaging Data Radiologist's Impression: Chest X-Ray 08/30/23 07:03 XR chest 1V portable CLINICAL HISTORY: Sepsis. COMPARISON STUDY: Chest radiograph March 02, 2023. FINDINGS: No pneumothorax or pleural effusion is present. Moderate cardiomegaly is unchanged. Right hilar prominence is unchanged and likely due to pulmonary vessels. 1.5 cm irregular density is likely artifactual and related to summation artifact. There are has been no significant change in appearance of the chest. IMPRESSION: No acute cardiopulmonary findings. ACT 112: Negative or not required by law. Electronically signed by: Alexandr Watson M.D. 08/30/2023 7:[address] 08/30/23 07:15 CT SCAN OF THE CERVICAL SPINE CLINICAL HISTORY: Fall. Neck pain. COMPARISON STUDY: No priors. TECHNIQUE: CT scan of the cervical spine is performed from the skull base to the upper thoracic spine. Images are reviewed in the axial, sagittal, and coronal planes. IV contrast was not administered for this examination. A dose lowering technique was utilized adhering to the principles of ALARA. CT DOSE: 1203.66 mGy.cm FINDINGS: Skeletal structures: The skeletal structures are osteopenic. There is no evidence of fracture or subluxation involving the cervical spine. Vertebral body height and alignment are maintained. There is straightening of the cervical lordosis. Anterior osteophytes are seen throughout. The odontoid process and lateral masses are intact. The atlantoaxial articulation is preserved noting productive degenerative change. The spinous processes appear intact. There is moderate multilevel cervical spondylosis. Uncovertebral and facet arthropathy contribute to neural foraminal narrowing at several levels. Intervertebral discs: There is mild multilevel disc space narrowing. Central canal: Posterior disc osteophyte complexes are seen at all levels between C3-C4 through C6-C7. This likely contributes to multilevel acquired compromising the central canal. Soft tissues: The prevertebral and paraspinous soft tissues are within normal limits. There is atherosclerotic calcification of the carotid bulbs. Calcification is seen along the course of the nuchal ligament. Calvarium: The visualized calvarium at the skull base appears intact. Brain parenchyma: Partially visualized brain parenchyma at the skull base is within normal limits. Sinuses and mastoids: The visualized paranasal sinuses are clear. The mastoid air cells are well pneumatized. Cerumen is noted in the external auditory canals. IMPRESSION: 1. There is no evidence of fracture or subluxation involving the cervical spine. 2. Osteopenia and spondylotic change as above. ACT 112: Negative or not required by law. Electronically signed by: Dar Torres M.D. 08/30/2023 7:[address] 08/30/23 07:15 CT OF THE HEAD WITHOUT CONTRAST CLINICAL HISTORY: Fall. COMPARISON STUDY: Head CT March 02, 2023. TECHNIQUE: Helical axial images of the head were obtained without IV contrast. Automated exposure control was utilized for the study. A dose lowering technique was utilized adhering to the principles of ALARA. FINDINGS: No acute intracranial hemorrhage, midline shift or mass effect is present. The ventricular system is stable. White matter hypodensity suggests small vessel disease. The basal cisterns are patent. No extra-axial collections are present. There are no findings to suggest acute dural sinus thrombosis or acute territorial infarct. No significant calvarial abnormalities are present. There is mild ethmoid sinus mucosal thickening. IMPRESSION: 1. No acute intracranial findings. No change in appearance of the brain. 2. No calvarial fractures. ACT 112: Negative or not required by law. Electronically signed by: Alexandr Watson M.D. 08/30/2023 7:41 AM Discharge Plan Visit Data Chief Complaint: Fall Stated Complaint: Fall x2, Leg Weakness, Edema ED Provider: Mario Pina Discharge Problem: COVID-19, Weakness, Elevated troponin Patient Disposition: Admitted As Inpatient Discharge Instructions Interventions: ED Discharge Assessment Last Done: 08/30/23 11:20
--- NOTE | 2023-08-30 07:31 | XRay Report ---
XR chest 1V portable CLINICAL HISTORY: Sepsis. COMPARISON STUDY: Chest radiograph March 02, 2023. FINDINGS: No pneumothorax or pleural effusion is present. Moderate cardiomegaly is unchanged. Right h ilar prominence is unchanged and likely due to pulmonary vessels. 1.5 cm irregular density is likely artifactual and related to summation artifact. There are has been no significant change in appearance of the chest. IMPRESSION: No acute cardiopulmonary findings. ACT 112: Negative or not required by law. Electronically signed by: Alexandr Watson M.D. 08/30/2023 7:29 AM
[2023-08-30 07:36] LABS: Basophils # (auto) 0.05 K/uL (0.00-0.20); Basophils % (auto) 0.8 %; Eosinophils # (auto) 0.06 K/uL (0.00-0.50); Eosinophils % (auto) 0.9 %; Hematocrit (blood only) 43.5 % (42.0-52.0); Immature Granulocytes # (auto) 0.02 K/uL (0.01-0.20); Immature Granulocytes % (auto) 0.3 %; Lymphocytes % (auto) 18.6 %; Mean Corpuscular Hemoglobin 33.3 pg (25.0-34.0); Mean Corpuscular Hgb Conc 34.5 g/dL (32.0-36.0); Mean Corpuscular Volume 96.7 fL (80.0-100.0); Mean Platelet Volume 10.9 fL (9.4-12.4); Monocytes # (auto) 0.97 K/uL (0.11-0.59); Neutrophils # (auto) 4.16 K/uL (1.40-6.50); Neutrophils % (auto) 64.4 %; Platelet Count 134 K/uL (130-400); RDW Coefficient of Variation 12.7 % (11.5-14.5); RDW Standard Deviation 45.1 fL (36.4-46.3); White Blood Count 6.46 K/ul (4.8-10.8)
[2023-08-30 07:43] LABS: Appearance Urine Clear (Clear); Bacteria Urine Automated Negative (Negative); Bilirubin Urine Negative (Negative); Blood Urine Negative (Negative); Cast Urine Automated 0 /lpf (0-5); Color Urine Yellow; Epithelial Cell Urine Auto 0-5 /lpf (0-5); Glucose Urine UA Negative (Negative); Ketones Urine Negative (Negative); Leukocyte Esterase Urine Negative (Negative); Nitrite Urine Negative (Negative); RBC Urine Automated 0-4 /hpf (0-4); Specific Gravity Urine 1.015 (1.000-1.030); Urobilinogen Urine Negative (Negative); WBC Urine Automated 0 /hpf (0-5); pH Urine 7.5 (4.5-7.5)
--- NOTE | 2023-08-30 07:44 | CT Scan Report ---
CT SCAN OF THE CERVICAL SPINE CLINICAL HISTORY: Fall. Neck pain. COMPARISON STUDY: No priors. TECHNIQUE: CT scan of the cervical spine is performed from the skull base to the upper thoracic spine . Images are reviewed in the axial, sagittal, and coronal planes. IV contrast was not administered fo r this examination. A dose lowering technique was utilized adhering to the principles of ALARA. CT DOSE: 1203.66 mGy.cm FINDINGS: Skeletal structures: The skeletal structures are osteopenic. There is no evidence of fracture or subl uxation involving the cervical spine. Vertebral body height and alignment are maintained. There is st raightening of the cervical lordosis. Anterior osteophytes are seen throughout. The odontoid process and lateral masses are intact. The atlantoaxial articulation is preserved noting productive degenerat kiah change. The spinous processes appear intact. There is moderate multilevel cervical spondylosis. U ncovertebral and facet arthropathy contribute to neural foraminal narrowing at several levels. Intervertebral discs: There is mild multilevel disc space narrowing. Central canal: Posterior disc osteophyte complexes are seen at all levels between C3-C4 through C6-C7 . This likely contributes to multilevel acquired compromising the central canal. Soft tissues: The prevertebral and paraspinous soft tissues are within normal limits. There is athero sclerotic calcification of the carotid bulbs. Calcification is seen along the course of the nuchal li gament. Calvarium: The visualized calvarium at the skull base appears intact. Brain parenchyma: Partially visualized brain parenchyma at the skull base is within normal limits. Sinuses and mastoids: The visualized paranasal sinuses are clear. The mastoid air cells are well pneu matized. Cerumen is noted in the external auditory canals. IMPRESSION: 1. There is no evidence of fracture or subluxation involving the cervical spine. 2. Osteopenia and spondylotic change as above. ACT 112: Negative or not required by law. Electronically signed by: Dar Torres M.D. 08/30/2023 7:43 AM
--- NOTE | 2023-08-30 07:44 | CT Scan Report ---
CT OF THE HEAD WITHOUT CONTRAST CLINICAL HISTORY: Fall. COMPARISON STUDY: Head CT March 02, 2023. TECHNIQUE: Helical axial images of the head were obtained without IV contrast. Automated exposure con trol was utilized for the study. A dose lowering technique was utilized adhering to the principles o f ALARA. FINDINGS: No acute intracranial hemorrhage, midline shift or mass effect is present. The ventricular system is stable. White matter hypodensity suggests small vessel disease. The basal cisterns are gonzalez nt. No extra-axial collections are present. There are no findings to suggest acute dural sinus thromb osis or acute territorial infarct. No significant calvarial abnormalities are present. There is mild ethmoid sinus mucosal thickening. IMPRESSION: 1. No acute intracranial findings. No change in appearance of the brain. 2. No calvarial fractures. ACT 112: Negative or not required by law. Electronically signed by: Alexandr Watson M.D. 08/30/2023 7:41 AM
[2023-08-30 07:47] LABS: Protein Urine Trace (Negative)
[2023-08-30 07:48] LABS: Albumin Level 3.8 gm/dl (3.4-5.0); BUN Creatinine Ratio 17.5 (10-20); Bilirubin Direct 0.2 mg/dl (0-0.2); Bilirubin,Total 0.8 mg/dl (0.2-1.0); Calcium 9.7 mg/dl (8.6-10.3); Creatinine Clr Calc Pharmacy 85.3 ml/min; Est GFR (African American) 95.1 ml/min; Magnesium 1.5 mg/dl (1.7-2.4); Potassium 3.9 mmol/L (3.5-5.1); Total Protein 6.9 gm/dl (6.0-8.3)
[2023-08-30 07:54] LABS: Troponin I High Sensitivity 47.5 pg/ml (0-20)
[2023-08-30 07:57] LABS: INR 1.1 (0.9-1.1); Prothrombin Time 12.3 Seconds (9.0-12.0)
[2023-08-30 08:12] LABS: Influenza A virus by PCR Negative (Neg); Influenza B virus by PCR Negative (Neg); RSV by PCR Negative (Neg)
[2023-08-30] MEDS ORDERED: cefTRIAXone SODIUM 2,000 MG/50 ML BAG IV STA (08:15)
[2023-08-30 09:02] LABS: SARS CoV2 RNA(COVID-19) Ceph POSITIVE (Negative)
--- NOTE | 2023-08-30 09:02 | History & Physical Report ---
Date of Service August 30, 2023 Assessment & Plan (1) Weakness: Plan: This is an 82 y/o male with prediabetes, PAF, HTN, dyslipidemia, lumbar spinal stenosis, and other history as outlined who presents to the ED with progressive weakness. He notes two days of upper respiratory symptoms and was noted to be febrile in the ED. COVID testing is positive. He is maintaining O2 sats on room air and denies any lower respiratory symptoms. His initial troponin was elevated at 47.5 with repeat being 37.4. No chest pain or acute EKG changes noted on personal review of EKG from today and from February. He does have significant peripheral edema and is not currently on diuretics. - Admit for observation in PCU overnight - Supportive care for COVID since pt not hypoxic, without significant lower respiratory tract symptoms - Mucinex BID, incentive spirometry, flutter valve - Replete magnesium and recheck in the AM - Diabetic diet as tolerated - PT/OT evaluations, fall precautions - pt uses a scooter at baseline, lives with his spouse - Single dose of IV furosemide 40 mg - reassess fluid status in the AM to determine need for additional diuresis - Hold additional antibiotics for now since no clear bacterial source of infection - cultures pending (2) COVID-19: (3) Prediabetes: Plan: Holding Metformin BSG ACHS A1c in the AM Diabetic diet Insulin sliding scale coverage (4) HTN (hypertension): (5) PAF (paroxysmal atrial fibrillation): (6) Dyslipidemia: (7) Lumbar spinal stenosis: Plan Continue other home medications as appropriate. Pt seen and reviewed with collaborating physician, Dr. Scanlon. Plan of care discussed and as outlined above. Code Status: Full code DVT Prophylaxis: Graham Gruber PA-C History of Present Illness Chief Complaint: Weakness Primary Care Provider: Jerry Medrano MD This is an 82 y/o male with prediabetes, PAF, HTN, dyslipidemia, lumbar spinal stenosis, and other history as outlined who presents to the ED with progressive weakness. Pt reports that he "slid out of bed" three times in the last 24 hours and had difficulty getting back up from the floor due to significant weakness and had to call EMS. He does have a history of lumbar spinal stenosis so reports that he does not have good LE strength at baseline but has been even more weak than usual the last 1-2 days. He also notes the onset of "cold symptoms" two days ago described as head congestion, cough, and runny nose. He denies fevers at home but was found to be febrile in the ED. He denies N/V/D. His appetite is at baseline. He denies chest pain, palpitations, shortness of breath, dizziness, syncope, or SLADE. He reports hitting his neck on part of the bed the last time that he slid off with resultant neck pain but imaging in the ED was negative for fracture. He reports it "feels bruised" - denies hitting head or LOC. No increase in chronic lower back issues. Last took his medications yesterday. Allergies Allergy/AdvReac Type Severity Reaction Status Date / Time No Known Allergies Allergy Verified 03/02/23 17:08 Home Medications Medication Instructions Recorded Confirmed Type amlodipine 10 mg tablet (Norvasc) 10 mg PO QAM 10/08/18 08/30/23 History atorvastatin 40 mg tablet (Lipitor) 40 mg PO HS 10/08/18 08/30/23 History cyanocobalamin (vitamin B-12) 1,000 mcg PO HS 10/08/18 08/30/23 History 1,000 mcg tablet (Vitamin B-12) indapamide 2.5 mg tablet 2.5 mg PO QAM 10/08/18 08/30/23 History propylene glycol 0.6 % eye drops 1 drp OPB QAM 10/08/18 08/30/23 History (Systane Balance) vit A 300 mcg-C 200 mg-E 27 1 tab PO QAM 10/08/18 08/30/23 History mg-lutein 2 mg and minerals tablet (Ocuvite with Lutein) metformin 500 mg 24 hr 500 mg PO PM 10/11/18 08/30/23 History tablet,extended release (gastric retention) metoprolol succinate 200 mg 200 mg PO QAM 10/11/18 08/30/23 History tablet,extended release 24 hr (Toprol XL) cholecalciferol (vitamin D3) 25 25 mcg PO HS 03/02/23 08/30/23 History mcg (1,000 unit) capsule (Vitamin D3) gabapentin 100 mg capsule See Rx Instructions .Route .COMPLEX 03/02/23 08/30/23 History lisinopril 40 mg tablet 40 mg PO QAM 03/02/23 08/30/23 History meloxicam 7.5 mg tablet 7.5 mg PO QAM 03/02/23 08/30/23 History Past Med/Surg History Medical History (Updated 08/30/23 @ 15:17 by Preeti Gruber PA-C) Symptomatic anemia Acute GI bleeding PAF (paroxysmal atrial fibrillation) Alcohol use Lumbar spinal stenosis Dyslipidemia Prediabetes HTN (hypertension) Umbilical hernia Hx of spinal stenosis Surgical History History of tonsillectomy and adenoidectomy History of appendectomy Family History Mother CHF (congestive heart failure) Social History Smoking Status: Former smoker Second Hand Exposure: No; Do You Dip or Chew Tobacco: No; Hx Alcohol Use: Yes Alcohol type: beer Alcohol Intake Frequency Comment: 6-7 beers/day Hx Substance Use: No Preferred Language: Greenlandic Communication Ability: Effective Ash Worker Required: No Beliefs That Will Affect Care: None marital status: Current Living Situation: Spouse Feels Safe at Home: Yes Assistive Devices: Cane Review of Systems Review of Systems: All systems reviewed & are unremarkable except as noted in HPI & below Constitutional: + fatigue and + weakness Eyes: no diplopia Ear, Nose, Mouth, Throat: + nasal congestion and + nasal discharge Respiratory: + cough; no dyspnea and no wheezing Cardiovascular: + edema; no chest pain and no palpitatio ns Gastrointestinal: no abdominal pain, no nausea, no vomiting and no diarrhea/loose stools Genitourinary: no dysuria or no hematuria Musculoskeletal: + back pain and + neck pain Integumentary: no yellowing of the skin Neurologic: + falls and + generalized weakness; no s yncope and no headache(s) Physical Exam Physical Exam: General: awake, alert, NAD Eyes: no scleral icterus ENT: moist mucus membranes Neck: trachea midline Heart: RRR Lungs: CTA bilaterally without W/R/R Abdomen: soft, NT, +BS Extremities: 2-3+ bilateral LE edema Skin: no jaundice Neuro: Ox3, moving all extremities, no dysarthria, no confusion Results & Data Results & Data Vital Signs (Past 12 Hours) Vital Signs Temp Pulse Resp BP Pulse Ox O2 Del Method 08/30/23 08:31 88 08/30/23 08:30 68 24 97 Room Air 08/30/23 08:00 67 15 100 Room Air 08/30/23 07:36 67 24 115/63 94 Room Air 08/30/23 06:55 38 C H 78 16 134/76 94 Room Air Laboratory Results Laboratory Results - last 24 hr 08/30/23 08/30/23 08/30/23 07:10 07:13 07:25 WBC 6.46 RBC 4.50 L Hgb 15.0 Hct 43.5 MCV 96.7 MCH 33.3 MCHC 34.5 RDW Std Deviation 45.1 RDW Coeff of Steven 12.7 Plt Count 134 MPV 10.9 Immature Gran % (Auto) 0.3 Neut % (Auto) 64.4 Lymph % (Auto) 18.6 [place] % (Auto) 15.0 Eos % (Auto) 0.9 Baso % (Auto) 0.8 Neut # (Auto) 4.16 Lymph # (Auto) 1.20 [place] # (Auto) 0.97 H Eos # (Auto) 0.06 Baso # (Auto) 0.05 Immature Gran # (Auto) 0.02 PT 12.3 H INR 1.1 Sodium 133 L Potassium 3.9 Chloride 99 Carbon Dioxide 27 Anion Gap 7 BUN 14 Creatinine 0.80 Est Cr Clr Drug Dosing 85.3 Est GFR ( Amer) 95.1 Est GFR (Non-Af Amer) 82.0 BUN/Creatinine Ratio 17.5 Glucose 96 Lactate 1.5 Calcium 9.7 Magnesium 1.5 L Total Bilirubin 0.8 Direct Bilirubin 0.2 AST 34 ALT 16 Alkaline Phosphatase 82 Troponin I High Sens 47.5 H B-Natriuretic Peptide 280 H Total Protein 6.9 Albumin 3.8 Procalcitonin < 0.05 Urine Color Yellow Urine Appearance Clear Urine pH 7.5 Ur Specific [place] 1.015 Urine Protein Trace H Urine Glucose (UA) Negative Urine Ketones Negative Urine Blood Negative Urine Nitrite Negative Urine Bilirubin Negative Urine Urobilinogen Negative Ur Leukocyte Esterase Negative Urine WBC (Auto) 0 Urine RBC (Auto) 0-4 U Hyaline Cast (Auto) 0 U Epithel Cells (Auto) 0-5 Urine Bacteria (Auto) Negative SARS-CoV-2 (PCR) Pending Influenza Type A (PCR) Pending Influenza Type B (PCR) Pending RSV (RT-PCR) Pending Diagnostic Findings Chest X-Ray 08/30/23 07:03 XR chest 1V portable CLINICAL HISTORY: Sepsis. COMPARISON STUDY: Chest radiograph March 02, 2023. FINDINGS: No pneumothorax or pleural effusion is present. Moderate cardiomegaly is unchanged. Right hilar prominence is unchanged and likely due to pulmonary vessels. 1.5 cm irregular density is likely artifactual and related to summation artifact. There are has been no significant change in appearance of the chest. IMPRESSION: No acute cardiopulmonary findings. ACT 112: Negative or not required by law. Electronically signed by: Alexandr Watson M.D. 08/30/2023 7:[address] 08/30/23 07:15 CT SCAN OF THE CERVICAL SPINE CLINICAL HISTORY: Fall. Neck pain. COMPARISON STUDY: No priors. TECHNIQUE: CT scan of the cervical spine is performed from the skull base to the upper thoracic spine. Images are reviewed in the axial, sagittal, and coronal planes. IV contrast was not administered for this examination. A dose lowering technique was utilized adhering to the principles of ALARA. CT DOSE: 1203.66 mGy.cm FINDINGS: Skeletal structures: The skeletal structures are osteopenic. There is no evidence of fracture or subluxation involving the cervical spine. Vertebral body height and alignment are maintained. There is straightening of the cervical lordosis. Anterior osteophytes are seen throughout. The odontoid process and lateral masses are intact. The atlantoaxial articulation is preserved noting productive degenerative change. The spinous processes appear intact. There is moderate multilevel cervical spondylosis. Uncovertebral and facet arthropathy contribute to neural foraminal narrowing at several levels. Intervertebral discs: There is mild multilevel disc space narrowing. Central canal: Posterior disc osteophyte complexes are seen at all levels between C3-C4 through C6-C7. This likely contributes to multilevel acquired compromising the central canal. Soft tissues: The prevertebral and paraspinous soft tissues are within normal limits. There is atherosclerotic calcification of the carotid bulbs. Calcification is seen along the course of the nuchal ligament. Calvarium: The visualized calvarium at the skull base appears intact. Brain parenchyma: Partially visualized brain parenchyma at the skull base is within normal limits. Sinuses and mastoids: The visualized paranasal sinuses are clear. The mastoid air cells are well pneumatized. Cerumen is noted in the external auditory canals. IMPRESSION: 1. There is no evidence of fracture or subluxation involving the cervical spine. 2. Osteopenia and spondylotic change as above. ACT 112: Negative or not required by law. Electronically signed by: Dar Torres M.D. 08/30/2023 7:[address] 08/30/23 07:15 CT OF THE HEAD WITHOUT CONTRAST CLINICAL HISTORY: Fall. COMPARISON STUDY: Head CT March 02, 2023. TECHNIQUE: Helical axial images of the head were obtained without IV contrast. Automated exposure control was utilized for the study. A dose lowering technique was utilized adhering to the principles of ALARA. FINDINGS: No acute intracranial hemorrhage, midline shift or mass effect is present. The ventricular system is stable. White matter hypodensity suggests small vessel disease. The basal cisterns are patent. No extra-axial collections are present. There are no findings to suggest acute dural sinus thrombosis or acute territorial infarct. No significant calvarial abnormalities are present. There is mild ethmoid sinus mucosal thickening. IMPRESSION: 1. No acute intracranial findings. No change in appearance of the brain. 2. No calvarial fractures. ACT 112: Negative or not required by law. Electronically signed by: Alexandr Watson M.D. 08/30/2023 7:41 AM Medications Administered Discontinued Medications Ceftriaxone Sodium (Rocephin) 2,000 mg in 50 mls @ 100 mls/hr IV NOW STA Stop: 08/30/23 08:44 Last Admin: 08/30/23 08:28 Dose: 100 mls/hr Documented By: [facility] Supervising Physician Co-Signing Physician Notes Attending addendum: The patient was seen and examined in emergency room He has been complaining of weakness in the legs associated with swelling of the legs He has had 2 falls without significant injury He has been getting home physical therapy for leg weakness Noted to have COVID-positive without any respiratory symptoms On examination Lying in bed without any apparent distress Hemodynamically stable noted to have fever of 38 C Chest-clear to auscultate bilaterally Heart-S1-S2, regular Abdomen-benign Extremities-1+ edema bilaterally confined to lower legs and feet His admission labs, imaging studies and EKG reviewed Has COVID-19 virus positivity Bilateral leg swelling Troponins mildly elevated and trending down doubt any ACS Agree with assessment and plan as outlined above by JAYLEN Holloway Dr (4) HTN (hypertension) Hypertension type: essential hypertension Qualified Code(s): I10 - Essential (primary) hypertension (7) Lumbar spinal stenosis Neurogenic claudication status: unspecified Qualified Code(s): M48.061 - Spinal stenosis, lumbar region without neurogenic claudication
[2023-08-30] MEDS ORDERED: MAGNESIUM SULFATE / D5W 1 GM/100 ML BAG IV STA (09:46)
[2023-08-30] MEDS ORDERED: FUROSEMIDE 40 MG/4 ML VIAL IV ONE (11:04)
--- NOTE | 2023-08-30 11:12 | Electrocardiogram Report ---
Test Reason : Blood Pressure : / mmHG Vent. Rate : 071 BPM Atrial Rate : 071 BPM P-R Int : 242 ms QRS Dur : 138 ms QT Int : 432 ms P-R-T Axes : 073 052 033 degrees QTc Int : 469 ms Sinus rhythm with 1st degree A-V block with Premature atrial complexes Right bundle branch block Abnormal ECG When compared with ECG of 02-MAR-2023 15:50, No significant change was found Confirmed by Raj Mireles ([id number]) on 08/30/2023 11:11:50 AM Referred By: Jerry Medrano Confirmed By:Gianni Mireles
[2023-08-30] MEDS ORDERED: DEXTROSE 50% 50 ML SYRINGE IV PRN (11:20)
[2023-08-30] MEDS ORDERED: GLUCAGON FOR INJ 1 MG VIAL SQ PRN (11:20)
[2023-08-30] MEDS ORDERED: GLUCOSE 40% GEL 15 GM TUBE PO PRN (11:20)
[2023-08-30] MEDS ORDERED: CARBOHYDRATES FOR HYPOGLYCEMIA PO PRN (11:20)
[2023-08-30] MEDS ORDERED: GLUCOSE 10 TAB/TUBE PO PRN (11:20)
[2023-08-30] MEDS ORDERED: ARTIFICIAL TEARS OP PRN (11:33)
[2023-08-30] MEDS: GABAPENTIN 100 MG CAP PO SCH ×2 (12:16→21:55)
[2023-08-30] MEDS: METOPROLOL SUCC 50MG EXT REL TAB PO SCH (12:17)
[2023-08-30] MEDS: INSULIN ASPART PER UNIT CHARGE SC SCH ×3 (15:36→21:09)
[2023-08-30] MEDS: ACETAMINOPHEN 325 MG TAB PO PRN (18:09)
[2023-08-30] MEDS: ATORVASTATIN 40 MG TAB PO SCH (21:55)
[2023-08-30] MEDS: guaiFENesin 600 MG TABCR PO SCH (21:55)
[2023-08-30] MEDS: CHOLECALCIFEROL 1,000 UNITS 25 MCG TAB PO SCH (21:55)
[2023-08-30] MEDS: CYANOCOBALAMIN (B-12) 500 MCG TABLET PO SCH (21:55)
[2023-08-31] MEDS: ACETAMINOPHEN 325 MG TAB PO PRN ×2 (00:23→17:48)
[2023-08-31 05:33] LABS: BUN Creatinine Ratio 18.1 (10-20); Calcium 8.8 mg/dl (8.6-10.3); Creatinine Clr Calc Pharmacy 82.2 ml/min; Est GFR (African American) 93.6 ml/min; Est GFR (Non-African American) 80.8 ml/min; Magnesium 1.6 mg/dl (1.7-2.4); Potassium 3.4 mmol/L (3.5-5.1)
[2023-08-31 05:39] LABS: Basophils # (auto) 0.04 K/uL (0.00-0.20); Basophils % (auto) 0.7 %; Eosinophils # (auto) 0.02 K/uL (0.00-0.50); Eosinophils % (auto) 0.4 %; Hematocrit (blood only) 40.3 % (42.0-52.0); Hemoglobin 13.7 g/dl (14.0-18.0); Immature Granulocytes # (auto) 0.03 K/uL (0.01-0.20); Immature Granulocytes % (auto) 0.5 %; Lymphocytes # (auto) 0.89 K/uL (1.20-3.40); Lymphocytes % (auto) 15.7 %; Mean Corpuscular Hemoglobin 32.8 pg (25.0-34.0); Mean Corpuscular Volume 96.4 fL (80.0-100.0); Mean Platelet Volume 10.9 fL (9.4-12.4); Monocytes # (auto) 0.67 K/uL (0.11-0.59); Monocytes % (auto) 11.8 %; Neutrophils # (auto) 4.01 K/uL (1.40-6.50); Neutrophils % (auto) 70.9 %; Platelet Count 115 K/uL (130-400); RDW Coefficient of Variation 12.8 % (11.5-14.5); RDW Standard Deviation 45.4 fL (36.4-46.3); Red Blood Count 4.18 M/uL (4.70-6.10); White Blood Count 5.66 K/ul (4.8-10.8)
[2023-08-31 07:39] LABS: Estimated Average Glucose 105 mg/dl; Hemoglobin A1C 5.3 % (4.5-5.6)
[2023-08-31] MEDS: INSULIN ASPART PER UNIT CHARGE SC SCH ×4 (09:25→21:16)
[2023-08-31] MEDS: amLODIPine BESYLATE 5 MG TAB PO SCH (09:31)
[2023-08-31] MEDS: ENOXAPARIN INJ 40 MG/0.4 ML SYR SQ SCH (09:31)
[2023-08-31] MEDS: GABAPENTIN 100 MG CAP PO SCH ×2 (09:32→20:57)
[2023-08-31] MEDS: guaiFENesin 600 MG TABCR PO SCH ×2 (09:33→20:56)
[2023-08-31] MEDS: METOPROLOL SUCC 50MG EXT REL TAB PO SCH (09:33)
[2023-08-31] MEDS: INDAPAMIDE 1.25 MG TAB PO SCH (09:33)
[2023-08-31] MEDS: CEROVITE ADV FORMULA TAB PO SCH (09:34)
[2023-08-31] MEDS: MELOXICAM 7.5 MG TAB PO SCH (09:34)
[2023-08-31] MEDS: lisinopril 40 MG TAB PO SCH (09:34)
[2023-08-31] MEDS ORDERED: POTASSIUM CHLORIDE CRTAB 20 MEQ TABCR PO STA (15:10)
[2023-08-31] MEDS ORDERED: FUROSEMIDE 40 MG/4 ML VIAL IV ONE (15:18)
--- NOTE | 2023-08-31 15:19 | Hospitalist Progress Note ---
Date of Service August 31, 2023 Assessment & Plan (1) COVID-19: Plan 82-year-old male with PMH of prediabetes, PAF, HTN, HLD, lumbar spinal stenosis presented to the ED 08/30 with progressive weakness and 2 days of upper respiratory symptoms. He was noted to be febrile in ED/COVID was positive/maintaining oxygen saturations on room air/receive ceftriaxone in the ED. He is being managed for the following: Generalized weakness Infection due to COVID-19 virus Patient came in with progressive weakness and found to be COVID 19 positive. Given antibiotic in the ED, was maintaining saturation on room air. Procalcitonin was negative. Patient currently on room air, hemodynamically stable, afebrile. Patient is being monitored off of antibiotic. PT/OT, continue supportive care. Flutter valve, incentive spirometer, Mucinex twice daily. Monitor replete electrolytes, potassium and magnesium repleted today. Fall precaution. Patient uses scooter at baseline, lives with his spouse. Given BLE edema with give additional dose of IV Lasix today. Other chronic medical condition: Prediabetes, HTN, PAF, HLD, lumbar spinal stenosis --continue with/resume home meds as and when able. Sliding scale insulin while in the hospital. DVT prophylaxis: Lovenox Full code Admission and Anticipated Discharge Date Admission Date: August 30, 2023 Subjective Patient was seen and examined at bedside in follow-up of weakness and COVID-19 infection. Patient was lying in bed, on room air, resting comfortably, not in any acute dis tress. Patient reports cough improving, poor appetite, still feels weak. Denies other complaints. Physical Exam Physical Exam: GENERAL: Alert and oriented x3. NAD, on RA. HEENT: No pallor, no icterus. Pupils equal, round and reactive to light. Oral mucosa moist. NECK: No JVD, no neck masses. HEART: S1 and S2 heard. Regular rate and rhythm. No murmur, no gallop. RESPIRATORY SYSTEM: Normal AP diameter. No accessory muscle use. No wheezing, no crackles. ABDOMEN: Soft, bowel sounds present, nontender, no distention. CENTRAL NERVOUS SYSTEM: No facial droop. Speech is clear. Obeys simple commands. Moves extremities. EXTREMITIES: 1-2 + ble edema, no erythema seen. Results & Data Results & Data Vital Signs (Past 12 Hours) Vital Signs Temp Pulse Pulse Resp BP Pulse Ox Pulse Ox 08/31/23 12:03 37.5 C 66 20 110/64 94 08/31/23 09:26 37.2 C 96 H 18 138/71 94 08/31/23 09:26 96 08/31/23 07:04 71 08/31/23 06:00 36.7 C 87 24 125/71 94 O2 Del Method O2 Del Method 08/31/23 12:03 Room Air 08/31/23 09:26 Room Air 08/31/23 09:26 Room Air 08/31/23 07:04 08/31/23 06:00 Room Air
[2023-08-31] MEDS: MAGNESIUM SULFATE / D5W 1 GM/100 ML BAG IV SCH ×2 (16:41→18:35)
[2023-08-31] MEDS: CYANOCOBALAMIN (B-12) 500 MCG TABLET PO SCH (20:56)
[2023-08-31] MEDS: ATORVASTATIN 40 MG TAB PO SCH (20:56)
[2023-08-31] MEDS: CHOLECALCIFEROL 1,000 UNITS 25 MCG TAB PO SCH (20:56)
[2023-09-01] MEDS: INSULIN ASPART PER UNIT CHARGE SC SCH ×4 (09:00→20:59)
[2023-09-01] MEDS: GABAPENTIN 100 MG CAP PO SCH ×2 (09:01→20:48)
[2023-09-01] MEDS: INDAPAMIDE 1.25 MG TAB PO SCH (09:01)
[2023-09-01] MEDS: ACETAMINOPHEN 325 MG TAB PO PRN (09:01)
[2023-09-01] MEDS: ENOXAPARIN INJ 40 MG/0.4 ML SYR SQ SCH (09:01)
[2023-09-01] MEDS: lisinopril 40 MG TAB PO SCH (09:01)
[2023-09-01] MEDS: amLODIPine BESYLATE 5 MG TAB PO SCH (09:01)
[2023-09-01] MEDS: guaiFENesin 600 MG TABCR PO SCH ×2 (09:01→20:38)
[2023-09-01] MEDS: CEROVITE ADV FORMULA TAB PO SCH (09:02)
[2023-09-01] MEDS: MELOXICAM 7.5 MG TAB PO SCH (09:02)
[2023-09-01] MEDS: METOPROLOL SUCC 50MG EXT REL TAB PO SCH (09:02)
[2023-09-01 09:50] LABS: BUN Creatinine Ratio 23.3 (10-20); Calcium 8.7 mg/dl (8.6-10.3); Creatinine Clr Calc Pharmacy 75.7 ml/min; Est GFR (African American) 90.6 ml/min; Est GFR (Non-African American) 78.2 ml/min; Magnesium 1.8 mg/dl (1.7-2.4); Phosphorus 3.5 mg/dl (2.5-4.9); Potassium 3.5 mmol/L (3.5-5.1)
[2023-09-01] MEDS ORDERED: POTASSIUM CHLORIDE CRTAB 20 MEQ TABCR PO STA (09:51)
[2023-09-01 09:54] LABS: Hemoglobin 14.1 g/dl (14.0-18.0); Mean Corpuscular Hemoglobin 33.5 pg (25.0-34.0); Mean Corpuscular Hgb Conc 35.3 g/dL (32.0-36.0); Mean Platelet Volume 11.1 fL (9.4-12.4); Platelet Count 114 K/uL (130-400); RDW Coefficient of Variation 12.7 % (11.5-14.5); RDW Standard Deviation 44.4 fL (36.4-46.3); Red Blood Count 4.21 M/uL (4.70-6.10); White Blood Count 5.08 K/ul (4.8-10.8)
--- NOTE | 2023-09-01 15:40 | Hospitalist Progress Note ---
Date of Service September 01, 2023 Assessment & Plan (1) COVID-19: Plan 82-year-old male with PMH of prediabetes, PAF, HTN, HLD, lumbar spinal stenosis presented to the ED 08/30 with progressive weakness and 2 days of upper respiratory symptoms. He was noted to be febrile in ED/COVID was positive/maintaining oxygen saturations on room air/receive ceftriaxone in the ED. He is being managed for the following: Generalized weakness Infection due to COVID-19 virus Patient came in with progressive weakness and found to be COVID 19 positive. Given antibiotic in the ED, was maintaining saturation on room air. Procalcitonin was negative. Patient currently on room air, hemodynamically stable, afebrile. Patient is being monitored off of antibiotic. PT/OT, continue supportive care. Flutter valve, incentive spirometer, Mucinex twice daily. Monitor replete electrolytes, potassium repleted today. Fall precaution. Patient uses scooter at baseline, lives with his spouse. Other chronic medical condition: Prediabetes, HTN, PAF, HLD, lumbar spinal stenosis --continue with/resume home meds as and when able. Sliding scale insulin while in the hospital. DVT prophylaxis: Lovenox Full code Dispo: will need rehab. pt/ot. cm to assist w/ dc plan. Admission and Anticipated Discharge Date Admission Date: August 30, 2023 Subjective Patient was seen and examined at bedside in follow-up of weakness and COVID-19 infection. Patient was lying in bed, on room air, resting comfortably, not in any acute distress. Patient reports cough improving, reports generally poor appetite at baseline, still feels weak. Denies other complaints. Pt's at bedside who also has similar symptoms as the patient's. she states she can't take care of him at home as he is falling and getting weak lately. Physical Exam Physical Exam: GENERAL: Alert and oriented x3. NAD, on RA. HEENT: No pallor, no icterus. Pupils equal, round and reactive to light. Oral mucosa moist. NECK: No JVD, no neck masses. HEART: S1 and S2 heard. Regular rate and rhythm. No murmur, no gallop. RESPIRATORY SYSTEM: Normal AP diameter. No accessory muscle use. No wheezing, no crackles. ABDOMEN: Soft, bowel sounds present, nontender, no distention. CENTRAL NERVOUS SYSTEM: No facial droop. Speech is clear. Obeys simple commands. Moves extremities. EXTREMITIES: 1 + ble edema, no erythema seen. Results & Data Results & Data Vital Signs (Past 12 Hours) Vital Signs Temp Pulse Resp BP BP Pulse Ox O2 Del Method 09/01/23 15:20 36.8 C 60 16 102/55 L 94 Room Air 09/01/23 10:56 110/62 09/01/23 10:50 36.7 C 64 20 96/46 L 92 Room Air 09/01/23 08:00 09/01/23 07:38 37.0 C 65 18 121/58 L 95 Room Air 09/01/23 04:47 37.3 C 71 19 122/61 92 Room Air O2 Del Method 09/01/23 15:20 09/01/23 10:56 09/01/23 10:50 09/01/23 08:00 Room Air 09/01/23 07:38 09/01/23 04:47
[2023-09-01] MEDS: CHOLECALCIFEROL 1,000 UNITS 25 MCG TAB PO SCH (20:38)
[2023-09-01] MEDS: CYANOCOBALAMIN (B-12) 500 MCG TABLET PO SCH (20:49)
[2023-09-01] MEDS: ATORVASTATIN 40 MG TAB PO SCH (20:49)
[2023-09-02] MEDS: INSULIN ASPART PER UNIT CHARGE SC SCH ×4 (07:49→20:33)
[2023-09-02] MEDS: ENOXAPARIN INJ 40 MG/0.4 ML SYR SQ SCH (07:50)
[2023-09-02] MEDS: ACETAMINOPHEN 325 MG TAB PO PRN ×2 (07:52→20:32)
[2023-09-02] MEDS: guaiFENesin 600 MG TABCR PO SCH ×2 (08:05→20:33)
[2023-09-02] MEDS: amLODIPine BESYLATE 5 MG TAB PO SCH (08:05)
[2023-09-02] MEDS: lisinopril 40 MG TAB PO SCH (08:05)
[2023-09-02] MEDS: INDAPAMIDE 1.25 MG TAB PO SCH (08:05)
[2023-09-02] MEDS: METOPROLOL SUCC 50MG EXT REL TAB PO SCH (08:05)
[2023-09-02] MEDS: MELOXICAM 7.5 MG TAB PO SCH (08:05)
[2023-09-02] MEDS: GABAPENTIN 100 MG CAP PO SCH ×2 (08:05→20:33)
[2023-09-02] MEDS: CEROVITE ADV FORMULA TAB PO SCH (08:05)
[2023-09-02 08:28] LABS: Hematocrit (blood only) 40.8 % (42.0-52.0); Hemoglobin 14.2 g/dl (14.0-18.0); Mean Corpuscular Hemoglobin 33.1 pg (25.0-34.0); Mean Corpuscular Hgb Conc 34.8 g/dL (32.0-36.0); Mean Corpuscular Volume 95.1 fL (80.0-100.0); Platelet Count 118 K/uL (130-400); RDW Coefficient of Variation 12.7 % (11.5-14.5); RDW Standard Deviation 44.6 fL (36.4-46.3); Red Blood Count 4.29 M/uL (4.70-6.10); White Blood Count 4.42 K/ul (4.8-10.8)
[2023-09-02 08:44] LABS: BUN Creatinine Ratio 25.7 (10-20); Calcium 8.9 mg/dl (8.6-10.3); Creatinine Clr Calc Pharmacy 91.4 ml/min; Est GFR (African American) 98.2 ml/min; Est GFR (Non-African American) 84.7 ml/min; Magnesium 1.6 mg/dl (1.7-2.4); Phosphorus 2.9 mg/dl (2.5-4.9); Potassium 3.6 mmol/L (3.5-5.1)
[2023-09-02] MEDS ORDERED: POTASSIUM CHLORIDE CRTAB 20 MEQ TABCR PO STA (09:19)
[2023-09-02] MEDS: MAGNESIUM SULFATE / D5W 1 GM/100 ML BAG IV SCH ×2 (09:46→11:48)
--- NOTE | 2023-09-02 15:03 | Hospitalist Progress Note ---
Date of Service September 02, 2023 Assessment & Plan (1) COVID-19: Plan 82-year-old male with PMH of prediabetes, PAF, HTN, HLD, lumbar spinal stenosis presented to the ED 08/30 with progressive weakness and 2 days of upper respiratory symptoms. He was noted to be febrile in ED/COVID was positive/maintaining oxygen saturations on room air/receive ceftriaxone in the ED. He is being managed for the following: Generalized weakness Infection due to COVID-19 virus Patient came in with progressive weakness and found to be COVID 19 positive. Given antibiotic in the ED, was maintaining saturation on room air. Procalcitonin was negative. Patient currently on room air, hemodynamically stable, afebrile. Patient is being monitored off of antibiotic. PT/OT, continue supportive care. Flutter valve, incentive spirometer, Mucinex twice daily. Monitor replete electrolytes, potassium repleted today. Fall precaution. Patient uses scooter at baseline, lives with his spouse. Other chronic medical condition: Prediabetes, HTN, PAF, HLD, lumbar spinal stenosis --continue with/resume home meds as and when able. Sliding scale insulin while in the hospital. DVT prophylaxis: Lovenox Full code Dispo: will need rehab. pt/ot. cm to assist w/ dc plan. med/surg until then Admission and Anticipated Discharge Date Admission Date: September 01, 2023 Subjective Patient was seen and examined at bedside in follow-up of weakness and COVID-19 infection. Patient was lying in bed, on room air, resting comfortably, not in any acute distress. Patient reports cough improving, reports generally poor appetite at baseline, still feels weak. Denies other complaints. Physical Exam Physical Exam: GENERAL: Alert and oriented x3. NAD, on RA. HEENT: No pallor, no icterus. Pupils equal, round and reactive to light. Oral mucosa moist. NECK: No JVD, no neck masses. HEART: S1 and S2 heard. Regular rate and rhythm. No murmur, no gallop. RESPIRATORY SYSTEM: Normal AP diameter. No accessory muscle use. No wheezing, no crackles. ABDOMEN: Soft, bowel sounds present, nontender, no distention. CENTRAL NERVOUS SYSTEM: No facial droop. Speech is clear. Obeys simple commands. Moves extremities. EXTREMITIES: 1 + ble edema, no erythema seen. Results & Data Results & Data Vital Signs (Past 12 Hours) Vital Signs Temp Pulse Resp BP Pulse Ox O2 Del Method O2 Del Method 09/02/23 11:50 60 16 94 Room Air 09/02/23 09:59 36.7 C 65 18 102/51 L 94 Room Air 09/02/23 08:08 62 09/02/23 08:00 Room Air 09/02/23 07:36 36.9 C 58 L 16 131/65 96 Room Air 09/02/23 04:38 36.7 C 66 19 131/65 93 Room Air
[2023-09-02] MEDS: CHOLECALCIFEROL 1,000 UNITS 25 MCG TAB PO SCH (20:33)
[2023-09-02] MEDS: ATORVASTATIN 40 MG TAB PO SCH (20:33)
[2023-09-02] MEDS: CYANOCOBALAMIN (B-12) 500 MCG TABLET PO SCH (20:33)
[2023-09-03 06:52] LABS: BUN Creatinine Ratio 22.4 (10-20); Calcium 9.1 mg/dl (8.6-10.3); Est GFR (African American) 97.1 ml/min; Est GFR (Non-African American) 83.8 ml/min; Magnesium 1.8 mg/dl (1.7-2.4); Potassium 3.9 mmol/L (3.5-5.1)
[2023-09-03] MEDS: INSULIN ASPART PER UNIT CHARGE SC SCH ×4 (07:46→20:27)
[2023-09-03] MEDS: guaiFENesin 600 MG TABCR PO SCH ×2 (08:51→20:55)
[2023-09-03] MEDS: METOPROLOL SUCC 50MG EXT REL TAB PO SCH (08:51)
[2023-09-03] MEDS: GABAPENTIN 100 MG CAP PO SCH ×2 (08:51→20:55)
[2023-09-03] MEDS: CEROVITE ADV FORMULA TAB PO SCH (08:52)
[2023-09-03] MEDS: INDAPAMIDE 1.25 MG TAB PO SCH (08:52)
[2023-09-03] MEDS: amLODIPine BESYLATE 5 MG TAB PO SCH (08:52)
[2023-09-03] MEDS: MELOXICAM 7.5 MG TAB PO SCH (08:52)
[2023-09-03] MEDS: ENOXAPARIN INJ 40 MG/0.4 ML SYR SQ SCH (08:53)
[2023-09-03] MEDS: lisinopril 40 MG TAB PO SCH (08:53)
--- NOTE | 2023-09-03 13:08 | Hospitalist Progress Note ---
Date of Service September 03, 2023 Assessment & Plan (1) COVID-19: Plan 82-year-old male with PMH of prediabetes, PAF, HTN, HLD, lumbar spinal stenosis presented to the ED 08/30 with progressive weakness and 2 days of upper respiratory symptoms. He was noted to be febrile in ED/COVID was positive/maintaining oxygen saturations on room air/receive ceftriaxone in the ED. He is being managed for the following: Generalized weakness Infection due to COVID-19 virus Patient came in with progressive weakness and found to be COVID 19 positive. Given antibiotic in the ED, was maintaining saturation on room air. Procalcitonin was negative. Patient currently on room air, hemodynamically stable, afebrile. Patient is being monitored off of antibiotic. has been afebrile. PT/OT, continue supportive care. Flutter valve, incentive spirometer, Mucinex twice daily. Monitor replete electrolytes as appropriate. Fall precaution. Patient uses scooter at baseline, lives with his spouse. Patient likely will need rehab, patient's spouse was also sick with "flu"/weak and not able to take care of him at home. Other chronic medical condition: Prediabetes, HTN, PAF, HLD, lumbar spinal stenosis --continue with/resume home meds as and when able. Sliding scale insulin while in the hospital. DVT prophylaxis: Lovenox Full code Dispo: will need rehab. pt/ot. cm to assist w/ dc plan. med/surg until then Admission and Anticipated Discharge Date Admission Date: September 01, 2023 Subjective Patient was seen and examined at bedside in follow-up of weakness and COVID-19 infection. Patient was lying in bed, on room air, resting comfortably, not in any acute distress. Patient reports cough but not bothering him, reports eating ok and moving bowels ok. Denies other complaints. Pt request FR to be laxed a little bit, FR raised to 1800 ml/day. Physical Exam Physical Exam: GENERAL: Alert and oriented x3. NAD, on RA. HEENT: No pallor, no icterus. Pupils equal, round and reactive to light. Oral mucosa moist. NECK: No JVD, no neck masses. HEART: S1 and S2 heard. Regular rate and rhythm. No murmur, no gallop. RESPIRATORY SYSTEM: Normal AP diameter. No accessory muscle use. No wheezing, no crackles. ABDOMEN: Soft, bowel sounds present, nontender, no distention. CENTRAL NERVOUS SYSTEM: No facial droop. Speech is clear. Obeys simple commands. Moves extremities. EXTREMITIES: 1 + ble edema, no erythema seen. Results & Data Results & Data Vital Signs (Past 12 Hours) Vital Signs Temp Pulse Resp BP BP Pulse Ox O2 Del Method 09/03/23 11:43 36.8 C 67 18 119/57 L 97 Room Air 09/03/23 10:04 Room Air 09/03/23 09:03 128/74 09/03/23 08:59 82 18 126/40 L 92 Room Air
[2023-09-03] MEDS: CHOLECALCIFEROL 1,000 UNITS 25 MCG TAB PO SCH (20:55)
[2023-09-03] MEDS: CYANOCOBALAMIN (B-12) 500 MCG TABLET PO SCH (20:55)
[2023-09-03] MEDS: MELATONIN 3 MG TAB PO PRN (20:55)
[2023-09-03] MEDS: ATORVASTATIN 40 MG TAB PO SCH (20:56)
[2023-09-03] MEDS: diphenhydrAMINE 2%/ZINC 0.1% CREAM 28.4GM TUBE EXT PRN (22:17)
[2023-09-03] MEDS: ACETAMINOPHEN 325 MG TAB PO PRN (22:17)
[2023-09-04] MEDS: INSULIN ASPART PER UNIT CHARGE SC SCH ×4 (08:07→20:06)
[2023-09-04] MEDS: METOPROLOL SUCC 50MG EXT REL TAB PO SCH (08:20)
[2023-09-04] MEDS: amLODIPine BESYLATE 5 MG TAB PO SCH (08:21)
[2023-09-04] MEDS: lisinopril 40 MG TAB PO SCH (08:22)
[2023-09-04] MEDS: MELOXICAM 7.5 MG TAB PO SCH (08:22)
[2023-09-04] MEDS: guaiFENesin 600 MG TABCR PO SCH ×2 (08:22→20:05)
[2023-09-04] MEDS: ENOXAPARIN INJ 40 MG/0.4 ML SYR SQ SCH (08:22)
[2023-09-04] MEDS: CEROVITE ADV FORMULA TAB PO SCH (08:22)
[2023-09-04] MEDS: INDAPAMIDE 1.25 MG TAB PO SCH (08:23)
[2023-09-04] MEDS: GABAPENTIN 100 MG CAP PO SCH ×2 (08:23→20:06)
[2023-09-04 11:17] LABS: BUN Creatinine Ratio 25.4 (10-20); Calcium 9.2 mg/dl (8.6-10.3); Creatinine Clr Calc Pharmacy 94.9 ml/min; Est GFR (African American) 99.9 ml/min; Est GFR (Non-African American) 86.2 ml/min; Magnesium 1.6 mg/dl (1.7-2.4); Phosphorus 3.2 mg/dl (2.5-4.9); Potassium 4.2 mmol/L (3.5-5.1)
[2023-09-04] MEDS: ACETAMINOPHEN 325 MG TAB PO PRN (11:43)
--- NOTE | 2023-09-04 13:24 | Hospitalist Progress Note ---
Date of Service September 04, 2023 Assessment & Plan (1) COVID-19: Plan 82-year-old male with PMH of prediabetes, PAF, HTN, HLD, lumbar spinal stenosis presented to the ED 08/30 with progressive weakness and 2 days of upper respiratory symptoms. He was noted to be febrile in ED/COVID was positive/maintaining oxygen saturations on room air/receive ceftriaxone in the ED. He is being managed for the following: Generalized weakness Infection due to COVID-19 virus Patient came in with progressive weakness and found to be COVID 19 positive. Given antibiotic in the ED, was maintaining saturation on room air. Procalcitonin was negative. Patient currently on room air, hemodynamically stable, afebrile. Patient is being monitored off of antibiotic. has been afebrile. PT/OT, continue supportive care. Flutter valve, incentive spirometer, Mucinex twice daily. Monitor replete electrolytes as appropriate. Fall precaution. Patient uses scooter at baseline, lives with his spouse. Patient likely will need rehab, patient's spouse was also sick with "flu"/weak and not able to take care of him at home. d/w cm, pt needs reval and [employer] will apply for auth Other chronic medical condition: Prediabetes, HTN, PAF, HLD, lumbar spinal stenosis --continue with/resume home meds as and when able. Sliding scale insulin while in the hospital. DVT prophylaxis: Lovenox Full code Dispo: will need rehab. pt/ot. cm to assist w/ dc plan. med/surg until then Admission and Anticipated Discharge Date Admission Date: September 01, 2023 Subjective Patient was seen and examined at bedside in follow-up of weakness and COVID-19 infection. Patient was lying in bed, on room air, resting comfortably, not in any acute distress. Patient reports cough but not bothering him, reports not liking food here and moving bowels ok. Denies other complaints. Maintain FR 1800 ml/day. Physical Exam Physical Exam: GENERAL: Alert and oriented x3. NAD, on RA. HEENT: No pallor, no icterus. Pupils equal, round and reactive to light. Oral mucosa moist. NECK: No JVD, no neck masses. HEART: S1 and S2 heard. Regular rate and rhythm. No murmur, no gallop. RESPIRATORY SYSTEM: Normal AP diameter. No accessory muscle use. No wheezing, no crackles. ABDOMEN: Soft, bowel sounds present, nontender, no distention. CENTRAL NERVOUS SYSTEM: No facial droop. Speech is clear. Obeys simple commands. Moves extremities. EXTREMITIES: 1 + ble edema- improving, no erythema seen. Results & Data Results & Data Vital Signs (Past 12 Hours) Vital Signs Temp Pulse Resp BP Pulse Ox O2 Del Method 09/04/23 09:37 Room Air 09/04/23 08:18 36.5 C 80 17 94/67 L 95 Room Air
[2023-09-04] MEDS: MAGNESIUM SULFATE / D5W 1 GM/100 ML BAG IV SCH ×2 (13:49→15:12)
[2023-09-04] MEDS ORDERED: DICLOFENAC SOD 1% GEL 100 GM TUBE EXT PRN (17:04)
[2023-09-04] MEDS: diphenhydrAMINE 2%/ZINC 0.1% CREAM 28.4GM TUBE EXT PRN (19:47)
[2023-09-04] MEDS: ATORVASTATIN 40 MG TAB PO SCH (20:05)
[2023-09-04] MEDS: CHOLECALCIFEROL 1,000 UNITS 25 MCG TAB PO SCH (20:06)
[2023-09-04] MEDS: CYANOCOBALAMIN (B-12) 500 MCG TABLET PO SCH (20:06)
[2023-09-05 07:10] LABS: BUN Creatinine Ratio 20.5 (10-20); Calcium 9.4 mg/dl (8.6-10.3); Creatinine Clr Calc Pharmacy 86.4 ml/min; Est GFR (African American) 96.1 ml/min; Est GFR (Non-African American) 82.9 ml/min; Magnesium 1.8 mg/dl (1.7-2.4)
[2023-09-05] MEDS: ACETAMINOPHEN 325 MG TAB PO PRN ×2 (07:51→20:56)
[2023-09-05] MEDS: guaiFENesin 600 MG TABCR PO SCH ×2 (07:52→20:48)
[2023-09-05] MEDS: GABAPENTIN 100 MG CAP PO SCH ×2 (07:52→20:48)
[2023-09-05] MEDS: amLODIPine BESYLATE 5 MG TAB PO SCH (07:52)
[2023-09-05] MEDS: lisinopril 40 MG TAB PO SCH (07:52)
[2023-09-05] MEDS: INDAPAMIDE 1.25 MG TAB PO SCH (07:53)
[2023-09-05] MEDS: ENOXAPARIN INJ 40 MG/0.4 ML SYR SQ SCH (07:55)
[2023-09-05] MEDS: MELOXICAM 7.5 MG TAB PO SCH (07:55)
[2023-09-05] MEDS: CEROVITE ADV FORMULA TAB PO SCH (07:57)
[2023-09-05] MEDS: METOPROLOL SUCC 50MG EXT REL TAB PO SCH (07:57)
[2023-09-05] MEDS: INSULIN ASPART PER UNIT CHARGE SC SCH ×4 (08:06→21:52)
--- NOTE | 2023-09-05 14:09 | Hospitalist Progress Note ---
Date of Service September 05, 2023 Assessment & Plan (1) COVID-19: Plan 82-year-old male with PMH of prediabetes, PAF, HTN, HLD, lumbar spinal stenosis presented to the ED 08/30 with progressive weakness and 2 days of upper respiratory symptoms. He was noted to be febrile in ED/COVID was positive/maintaining oxygen saturations on room air/receive ceftriaxone in the ED. He is being managed for the following: Generalized weakness Infection due to COVID-19 virus Patient came in with progressive weakness and found to be COVID 19 positive. Given antibiotic in the ED, was maintaining saturation on room air. Procalcitonin was negative. Patient currently on room air, hemodynamically stable, afebrile. Patient is being monitored off of antibiotic. has been afebrile. PT/OT, continue supportive care. Flutter valve, incentive spirometer, Mucinex twice daily. Monitor replete electrolytes as appropriate. Fall precaution. Patient uses scooter at baseline, lives with his spouse. Patient likely will need rehab, patient's spouse was also sick with "flu"/weak and not able to take care of him at home. awaiting placement Other chronic medical condition: Prediabetes, HTN, PAF, HLD, lumbar spinal stenosis --continue with/resume home meds as and when able. Sliding scale insulin while in the hospital. DVT prophylaxis: Lovenox Full code Dispo: will need rehab. pt/ot. cm to assist w/ dc plan. med/surg until then. awaiting placement. Admission and Anticipated Discharge Date Admission Date: September 01, 2023 Subjective Patient was seen and examined at bedside in follow-up of weakness and COVID-19 infection. Patient was lying in bed, on room air, resting comfortably, not in any acute distress. Patient reports cough but not bothering him, reports not liking food here - "they are cold" and moving bowels ok. Denies other complaints. Maintain FR 1800 ml/day. Physical Exam Physical Exam: GENERAL: Alert and oriented x3. NAD, on RA. HEENT: No pallor, no icterus. Pupils equal, round and reactive to light. Oral mucosa moist. NECK: No JVD, no neck masses. HEART: S1 and S2 heard. Regular rate and rhythm. No murmur, no gallop. RESPIRATORY SYSTEM: Normal AP diameter. No accessory muscle use. No wheezing, no crackles. ABDOMEN: Soft, bowel sounds present, nontender, no distention. CENTRAL NERVOUS SYSTEM: No facial droop. Speech is clear. Obeys simple commands. Moves extremities. EXTREMITIES: trace ble edema, no erythema seen. Results & Data Results & Data Vital Signs (Past 12 Hours) Vital Signs Temp Pulse Resp BP Pulse Ox O2 Del Method 09/05/23 08:00 Room Air 09/05/23 07:49 36.4 C L 89 18 124/72 97 Room Air
[2023-09-05] MEDS: CYANOCOBALAMIN (B-12) 500 MCG TABLET PO SCH (20:48)
[2023-09-05] MEDS: ATORVASTATIN 40 MG TAB PO SCH (20:48)
[2023-09-05] MEDS: CHOLECALCIFEROL 1,000 UNITS 25 MCG TAB PO SCH (20:48)
[2023-09-06] MEDS: INSULIN ASPART PER UNIT CHARGE SC SCH ×4 (08:23→21:55)
[2023-09-06] MEDS: amLODIPine BESYLATE 5 MG TAB PO SCH (08:31)
[2023-09-06] MEDS: GABAPENTIN 100 MG CAP PO SCH ×2 (08:31→21:43)
[2023-09-06] MEDS: lisinopril 40 MG TAB PO SCH (08:31)
[2023-09-06] MEDS: guaiFENesin 600 MG TABCR PO SCH ×2 (08:31→21:44)
[2023-09-06] MEDS: ENOXAPARIN INJ 40 MG/0.4 ML SYR SQ SCH (08:31)
[2023-09-06] MEDS: INDAPAMIDE 1.25 MG TAB PO SCH (08:31)
[2023-09-06] MEDS: CEROVITE ADV FORMULA TAB PO SCH (08:32)
[2023-09-06] MEDS: MELOXICAM 7.5 MG TAB PO SCH (08:32)
[2023-09-06] MEDS: METOPROLOL SUCC 50MG EXT REL TAB PO SCH (08:33)
[2023-09-06] MEDS: diphenhydrAMINE 2%/ZINC 0.1% CREAM 28.4GM TUBE EXT PRN ×2 (08:43→17:43)
--- NOTE | 2023-09-06 16:18 | Hospitalist Progress Note ---
Date of Service September 06, 2023 Assessment & Plan (1) COVID-19: Plan 82-year-old male with PMH of prediabetes, PAF, HTN, HLD, lumbar spinal stenosis presented to the ED 08/30 with progressive weakness and 2 days of upper respiratory symptoms. He was noted to be febrile in ED/COVID was positive/maintaining oxygen saturations on room air/receive ceftriaxone in the ED. He is being managed for the following: Generalized weakness Infection due to COVID-19 virus Patient came in with progressive weakness and found to be COVID 19 positive. Given antibiotic in the ED, was maintaining saturation on room air. Procalcitonin was negative. Patient currently on room air, hemodynamically stable, afebrile. Patient is being monitored off of antibiotic. has been afebrile. PT/OT, continue supportive care. Flutter valve, incentive spirometer, Mucinex twice daily. Monitor replete electrolytes as appropriate. Fall precaution. Patient uses scooter at baseline, lives with his spouse. Patient likely will need rehab, patient's spouse was also sick with "flu"/weak and not able to take care of him at home. awaiting placement Other chronic medical condition: Prediabetes, HTN, PAF, HLD, lumbar spinal stenosis --continue with/resume home meds as and when able. Sliding scale insulin while in the hospital. DVT prophylaxis: Lovenox Full code Dispo: will need rehab. pt/ot. cm to assist w/ dc plan. med/surg until then. awaiting placement. Admission and Anticipated Discharge Date Admission Date: September 01, 2023 Subjective Patient was seen and examined at bedside in follow-up of weakness and COVID-19 infection. Patient was lying in bed, on room air, resting comfortably, not in any acute distress. Patient reports cough but not bothering him, reports not liking food here - "they are cold" and moving bowels ok. Denies other complaints. Maintain FR 1800 ml/day. Physical Exam Physical Exam: GENERAL: Alert and oriented x3. NAD, on RA. HEENT: No pallor, no icterus. Pupils equal, round and reactive to light. Oral mucosa moist. NECK: No JVD, no neck masses. HEART: S1 and S2 heard. Regular rate and rhythm. No murmur, no gallop. RESPIRATORY SYSTEM: Normal AP diameter. No accessory muscle use. No wheezing, no crackles. ABDOMEN: Soft, bowel sounds present, nontender, no distention. CENTRAL NERVOUS SYSTEM: No facial droop. Speech is clear. Obeys simple commands. Moves extremities. EXTREMITIES: trace ble edema, no erythema seen. Results & Data Results & Data Vital Signs (Past 12 Hours) Vital Signs Temp Pulse Resp BP BP Pulse Ox O2 Del Method 09/06/23 08:58 Room Air 09/06/23 08:33 62 115/66 09/06/23 07:10 36.5 C 60 18 114/73 94 Room Air
[2023-09-06] MEDS: ATORVASTATIN 40 MG TAB PO SCH (21:41)
[2023-09-06] MEDS: CHOLECALCIFEROL 1,000 UNITS 25 MCG TAB PO SCH (21:41)
[2023-09-06] MEDS: CYANOCOBALAMIN (B-12) 500 MCG TABLET PO SCH (21:42)
[2023-09-07] MEDS: ACETAMINOPHEN 325 MG TAB PO PRN ×2 (04:58→19:31)
[2023-09-07] MEDS: MELATONIN 3 MG TAB PO PRN (04:59)
[2023-09-07] MEDS: diphenhydrAMINE 2%/ZINC 0.1% CREAM 28.4GM TUBE EXT PRN ×3 (05:01→19:47)
[2023-09-07] MEDS: INSULIN ASPART PER UNIT CHARGE SC SCH ×4 (08:10→21:27)
[2023-09-07] MEDS: amLODIPine BESYLATE 5 MG TAB PO SCH (08:17)
[2023-09-07] MEDS: INDAPAMIDE 1.25 MG TAB PO SCH (08:18)
[2023-09-07] MEDS: METOPROLOL SUCC 50MG EXT REL TAB PO SCH (08:18)
[2023-09-07] MEDS: lisinopril 40 MG TAB PO SCH (08:18)
[2023-09-07] MEDS: GABAPENTIN 100 MG CAP PO SCH ×2 (08:18→19:30)
[2023-09-07] MEDS: guaiFENesin 600 MG TABCR PO SCH ×2 (08:18→19:30)
[2023-09-07] MEDS: CEROVITE ADV FORMULA TAB PO SCH (08:19)
[2023-09-07] MEDS: MELOXICAM 7.5 MG TAB PO SCH (08:19)
[2023-09-07] MEDS: ENOXAPARIN INJ 40 MG/0.4 ML SYR SQ SCH (08:23)
--- NOTE | 2023-09-07 13:15 | Hospitalist Progress Note ---
Date of Service September 07, 2023 Assessment & Plan (1) COVID-19: Plan 82-year-old male with PMH of prediabetes, PAF, HTN, HLD, lumbar spinal stenosis presented to the ED 08/30 with progressive weakness and 2 days of upper respiratory symptoms. He was noted to be febrile in ED/COVID was positive/maintaining oxygen saturations on room air/receive ceftriaxone in the ED. He is being managed for the following: Generalized weakness Infection due to COVID-19 virus Patient came in with progressive weakness and found to be COVID 19 positive. Given antibiotic in the ED, was maintaining saturation on room air. Procalcitonin was negative. Patient currently on room air, hemodynamically stable, afebrile. Patient is being monitored off of antibiotic. has been afebrile. PT/OT, continue supportive care. Flutter valve, incentive spirometer, Mucinex twice daily. Monitor replete electrolytes as appropriate. Fall precaution. Patient uses scooter at baseline, lives with his spouse. Patient likely will need rehab, patient's spouse was also sick with "flu"/weak and not able to take care of him at home. awaiting placement Other chronic medical condition: Prediabetes, HTN, PAF, HLD, lumbar spinal stenosis --continue with/resume home meds as and when able. Sliding scale insulin while in the hospital. DVT prophylaxis: Lovenox Full code Dispo: will need rehab. pt/ot. cm to assist w/ dc plan. med/surg until then. awaiting placement. Admission and Anticipated Discharge Date Admission Date: September 01, 2023 Subjective Patient was seen and examined at bedside in follow-up of weakness and COVID-19 infection. Patient was lying in bed, on room air, resting comfortably, not in any acute distress. Patient reports cough but not bothering him. Denies other complaints. Maintain FR 1800 ml/day. Per RN, eating ok and moving bowels ok. Physical Exam Physical Exam: GENERAL: Alert and oriented x3. NAD, on RA. HEENT: No pallor, no icterus. Pupils equal, round and reactive to light. Oral mucosa moist. NECK: No JVD, no neck masses. HEART: S1 and S2 heard. Regular rate and rhythm. No murmur, no gallop. RESPIRATORY SYSTEM: Normal AP diameter. No accessory muscle use. No wheezing, no crackles. ABDOMEN: Soft, bowel sounds present, nontender, no distention. CENTRAL NERVOUS SYSTEM: No facial droop. Speech is clear. Obeys simple commands. Moves extremities. EXTREMITIES: trace ble edema, no erythema seen. Results & Data Results & Data Vital Signs (Past 12 Hours) Vital Signs Temp Pulse Resp BP Pulse Ox O2 Del Method 09/07/23 07:50 Room Air 09/07/23 07:40 36.5 C 59 L 18 93/54 L 98 Room Air
[2023-09-07] MEDS: CHOLECALCIFEROL 1,000 UNITS 25 MCG TAB PO SCH (19:29)
[2023-09-07] MEDS: ATORVASTATIN 40 MG TAB PO SCH (19:30)
[2023-09-07] MEDS: CYANOCOBALAMIN (B-12) 500 MCG TABLET PO SCH (19:33)
[2023-09-08 06:25] LABS: BUN Creatinine Ratio 30.7 (10-20); Calcium 9.6 mg/dl (8.6-10.3); Creatinine Clr Calc Pharmacy 76.5 ml/min; Est GFR (African American) 91.4 ml/min; Est GFR (Non-African American) 78.9 ml/min; Magnesium 1.7 mg/dl (1.7-2.4); Phosphorus 3.8 mg/dl (2.5-4.9); Potassium 3.5 mmol/L (3.5-5.1)
[2023-09-08] MEDS: INSULIN ASPART PER UNIT CHARGE SC SCH ×2 (09:34→11:50)
[2023-09-08] MEDS: METOPROLOL SUCC 50MG EXT REL TAB PO SCH (09:38)
[2023-09-08] MEDS: amLODIPine BESYLATE 5 MG TAB PO SCH (09:38)
[2023-09-08] MEDS: lisinopril 40 MG TAB PO SCH (09:39)
[2023-09-08] MEDS: ACETAMINOPHEN 325 MG TAB PO PRN ×2 (09:55→14:15)
[2023-09-08] MEDS: MELOXICAM 7.5 MG TAB PO SCH (09:56)
[2023-09-08] MEDS: guaiFENesin 600 MG TABCR PO SCH ×2 (09:56→19:55)
[2023-09-08] MEDS: ENOXAPARIN INJ 40 MG/0.4 ML SYR SQ SCH (09:57)
[2023-09-08] MEDS: GABAPENTIN 100 MG CAP PO SCH ×2 (09:57→19:55)
[2023-09-08] MEDS: CEROVITE ADV FORMULA TAB PO SCH (09:58)
[2023-09-08] MEDS: CALAMINE/PRAMOXINE LOTION 180 APPLN/180 ML BTL EXT SCH ×2 (12:36→19:55)
--- NOTE | 2023-09-08 14:23 | Hospitalist Progress Note ---
Date of Service September 08, 2023 Assessment & Plan (1) COVID-19: Plan 82-year-old male with PMH of prediabetes, PAF, HTN, HLD, lumbar spinal stenosis presented to the ED 08/30 with progressive weakness and 2 days of upper respiratory symptoms. He was noted to be febrile in ED/COVID was positive/maintaining oxygen saturations on room air/receive ceftriaxone in the ED. He is being managed for the following: Generalized weakness Infection due to COVID-19 virus Patient came in with progressive weakness and found to be COVID 19 positive. Given antibiotic in the ED, was maintaining saturation on room air. Procalcitonin was negative. Patient currently on room air, hemodynamically stable, afebrile. continue supportive care. Flutter valve, incentive spirometer, Mucinex twice daily. Monitor replete electrolytes as appropriate. Fall precaution. Patient uses scooter at baseline, lives with his spouse. Awaiting placement. Case management on board. Hyponatremia Sodium decreased to 126 today. Will obtain urine osmolarity, urine electrolytes Hold indapamide Monitor daily BMP Other chronic medical condition: Prediabetes-blood glucose within normal limits. Patient asked fingerstick glucose checks to be discontinued. HTN,on lisinopril 40 mg, amlodipine 10 mg, indapamide 2.5 mg, metoprolol 20 mg. Blood pressure on the low side. Holding antihypertensives PAF,on metoprolol HLD,on Lipitor lumbar spinal stenosis -gabapentin DVT prophylaxis: Lovenox Full code Dispo: Will need rehab. Discussed with son at bedside today. Time spent evaluating patient, direct bedside care, chart review, placing orders, interpretation of diagnostic studies, discussion with consultants, patient, and family members, as well as other required patient management activities is 50 minutes Please note the above document was generated using voice recognition software. It may contain grammatical, syntax or spelling errors. Any formal questions or concerns about the content, text or information contained within the body of this dictation should be directly addressed to the provider for clarification Admission and Anticipated Discharge Date Admission Date: September 01, 2023 Subjective Patient seen and examined at bedside. Comfortable; not in distress. He reports cough with clear mucus. Denies fever, chills, chest pain, shortness of breath, abdominal pain or urinary symptoms. No significant overnight events Review of Systems Review of Systems: All systems reviewed & are unremarkable except as noted in Subjective Physical Exam Physical Exam: GENERAL: Alert and oriented x3. NAD, on RA. HEENT: No pallor, no icterus. Pupils equal, round and reactive to light. Oral mucosa moist. NECK: No JVD, no neck masses. HEART: S1 and S2 heard. Regular rate and rhythm. No murmur, no gallop. RESPIRATORY SYSTEM: Normal AP diameter. No accessory muscle use. No wheezing, no crackles. ABDOMEN: Soft, bowel sounds present, nontender, no distention. CENTRAL NERVOUS SYSTEM: No facial droop. Speech is clear. Obeys simple commands. Moves extremities. EXTREMITIES: trace ble edema, no erythema seen. Results & Data Results & Data Vital Signs (Past 12 Hours) Vital Signs Temp Pulse Resp BP Pulse Ox O2 Del Method 09/08/23 08:27 36.7 C 70 16 96/63 L 96 Room Air
[2023-09-08 16:50] LABS: Urine Potassium 44.4 mmol/L
[2023-09-08] MEDS: ATORVASTATIN 40 MG TAB PO SCH (19:54)
[2023-09-08] MEDS: diphenhydrAMINE 2%/ZINC 0.1% CREAM 28.4GM TUBE EXT PRN (19:55)
[2023-09-08] MEDS: CYANOCOBALAMIN (B-12) 500 MCG TABLET PO SCH (19:56)
[2023-09-08] MEDS: CHOLECALCIFEROL 1,000 UNITS 25 MCG TAB PO SCH (19:56)
[2023-09-09 06:30] LABS: BUN Creatinine Ratio 30.6 (10-20); Calcium 9.7 mg/dl (8.6-10.3); Creatinine Clr Calc Pharmacy 108.6 ml/min; Est GFR (African American) 105.6 ml/min; Est GFR (Non-African American) 91.1 ml/min; Potassium 3.6 mmol/L (3.5-5.1)
[2023-09-09] MEDS: ENOXAPARIN INJ 40 MG/0.4 ML SYR SQ SCH (07:58)
[2023-09-09] MEDS: GABAPENTIN 100 MG CAP PO SCH ×2 (07:59→21:02)
[2023-09-09] MEDS: CEROVITE ADV FORMULA TAB PO SCH (07:59)
[2023-09-09] MEDS: guaiFENesin 600 MG TABCR PO SCH ×2 (07:59→21:03)
[2023-09-09] MEDS: MELOXICAM 7.5 MG TAB PO SCH (07:59)
[2023-09-09] MEDS: CALAMINE/PRAMOXINE LOTION 180 APPLN/180 ML BTL EXT SCH ×2 (08:00→21:02)
[2023-09-09] MEDS: ACETAMINOPHEN 325 MG TAB PO PRN ×2 (08:06→16:33)
--- NOTE | 2023-09-09 14:14 | Hospitalist Progress Note ---
Date of Service September 09, 2023 Assessment & Plan (1) COVID-19: Plan 82-year-old male with PMH of prediabetes, PAF, HTN, HLD, lumbar spinal stenosis presented to the ED 08/30 with progressive weakness and 2 days of upper respiratory symptoms. He was noted to be febrile in ED/COVID was positive/maintaining oxygen saturations on room air/receive ceftriaxone in the ED. He is being managed for the following: Generalized weakness Infection due to COVID-19 virus Patient came in with progressive weakness and found to be COVID 19 positive. Chest x-ray personally reviewed; no acute findings. Patient currently on room air, hemodynamically stable, afebrile. continue supportive care. Flutter valve, incentive spirometer, Mucinex twice daily. Monitor replete electrolytes as appropriate. Fall precaution. Patient uses scooter at baseline, lives with his spouse. Awaiting placement. Case management on board. Hyponatremia Slightly improvement in the sodium level today to 128. Urine osmolarity elevated with high urine sodium Hold indapamide Monitor daily BMP Increase fluid restriction to 1500 mg. Other chronic medical condition: Prediabetes-blood glucose within normal limits. Patient asked fingerstick glucose checks to be discontinued. HTN,on lisinopril 40 mg, amlodipine 10 mg, indapamide 2.5 mg, metoprolol 20 mg. Blood pressure on the low side. Holding antihypertensives. Patient is normotensive off antihypertensive. Continue to monitor. PAF,on metoprolol HLD,on Lipitor lumbar spinal stenosis -gabapentin DVT prophylaxis: Lovenox Full code Dispo: Awaiting rehab placement. Possible DC tomorrow. Please note the above document was generated using voice recognition software. It may contain grammatical, syntax or spelling errors. Any formal questions or concerns about the content, text or information contained within the body of this dictation should be directly addressed to the provider for clarification Admission and Anticipated Discharge Date Admission Date: September 01, 2023 Subjective Patient seen and examined at bedside. Comfortable; not in distress. Denies fever, chills, chest pain, shortness of breath, abdominal pain or urinary symptoms. No significant overnight events Review of Systems Review of Systems: All systems reviewed & are unremarkable except as noted in Subjective Physical Exam Physical Exam: GENERAL: Alert and oriented x3. NAD, on RA. HEENT: No pallor, no icterus. Pupils equal, round and reactive to light. Oral mucosa moist. NECK: No JVD, no neck masses. HEART: S1 and S2 heard. Regular rate and rhythm. No murmur, no gallop. RESPIRATORY SYSTEM: Normal AP diameter. No accessory muscle use. No wheezing, no crackles. ABDOMEN: Soft, bowel sounds present, nontender, no distention. CENTRAL NERVOUS SYSTEM: No facial droop. Speech is clear. Obeys simple commands. Moves extremities. EXTREMITIES: trace ble edema, no erythema seen. Results & Data Results & Data Vital Signs (Past 12 Hours) Vital Signs Temp Pulse Resp BP Pulse Ox O2 Del Method 09/09/23 08:23 36.6 C 70 16 110/66 99 Room Air 09/09/23 08:00 Room Air
[2023-09-09] MEDS: ATORVASTATIN 40 MG TAB PO SCH (21:01)
[2023-09-09] MEDS: CYANOCOBALAMIN (B-12) 500 MCG TABLET PO SCH (21:02)
[2023-09-09] MEDS: CHOLECALCIFEROL 1,000 UNITS 25 MCG TAB PO SCH (21:02)
[2023-09-10 06:57] LABS: Calcium 9.5 mg/dl (8.6-10.3); Creatinine Clr Calc Pharmacy 99.1 ml/min; Est GFR (African American) 101.6 ml/min; Est GFR (Non-African American) 87.7 ml/min; Potassium 3.5 mmol/L (3.5-5.1)
[2023-09-10] MEDS: MELOXICAM 7.5 MG TAB PO SCH (08:39)
[2023-09-10] MEDS: CEROVITE ADV FORMULA TAB PO SCH (08:40)
[2023-09-10] MEDS: GABAPENTIN 100 MG CAP PO SCH ×2 (08:40→21:02)
[2023-09-10] MEDS: guaiFENesin 600 MG TABCR PO SCH ×2 (08:40→21:01)
[2023-09-10] MEDS: ENOXAPARIN INJ 40 MG/0.4 ML SYR SQ SCH (08:41)
[2023-09-10] MEDS: CALAMINE/PRAMOXINE LOTION 180 APPLN/180 ML BTL EXT SCH ×2 (08:42→21:02)
[2023-09-10] MEDS: ACETAMINOPHEN 325 MG TAB PO PRN ×2 (13:08→17:58)
--- NOTE | 2023-09-10 13:13 | Hospitalist Progress Note ---
Date of Service September 10, 2023 Assessment & Plan (1) COVID-19: Plan 82-year-old male with PMH of prediabetes, PAF, HTN, HLD, lumbar spinal stenosis presented to the ED 08/30 with progressive weakness and 2 days of upper respiratory symptoms. He was noted to be febrile in ED/COVID was positive/maintaining oxygen saturations on room air/receive ceftriaxone in the ED. He is being managed for the following: Generalized weakness Infection due to COVID-19 virus Patient came in with progressive weakness and found to be COVID 19 positive. Chest x-ray personally reviewed; no acute findings. Patient currently on room air, hemodynamically stable, afebrile. continue supportive care. Flutter valve, incentive spirometer, Mucinex twice daily. Monitor replete electrolytes as appropriate. Fall precaution. Patient uses scooter at baseline, lives with his spouse. Awaiting placement. Case management on board. Hyponatremia Sodium remains around 127 to 128 Urine osmolarity elevated with high urine sodium Hold indapamide Monitor daily BMP Increase fluid restriction to 1200 mg. Other chronic medical condition: Prediabetes-blood glucose within normal limits. Patient asked fingerstick glucose checks to be discontinued. HTN,on lisinopril 40 mg, amlodipine 10 mg, indapamide 2.5 mg, metoprolol 200 mg. Blood pressure on the low side. Holding antihypertensives. Patient is normotensive off antihypertensive. Continue to monitor. At discharge, will hold off on antihypertensive other than metoprolol and gradually titrate as outpatient. PAF,on metoprolol HLD,on Lipitor lumbar spinal stenosis -gabapentin DVT prophylaxis: Lovenox Full code Dispo: Awaiting rehab placement. Please note the above document was generated using voice recognition software. It may contain grammatical, syntax or spelling errors. Any formal questions or concerns about the content, text or information contained within the body of this dictation should be directly addressed to the provider for clarification Admission and Anticipated Discharge Date Admission Date: September 01, 2023 Subjective Patient seen and examined at bedside. Comfortable; not in distress. Denies fever, chills, chest pain, shortness of breath, abdominal pain or urinary symptoms. No significant overnight events Review of Systems Review of Systems: All systems reviewed & are unremarkable except as noted in Subjective Physical Exam Physical Exam: GENERAL: Alert and oriented x3. NAD, on RA. HEENT: No pallor, no icterus. Pupils equal, round and reactive to light. Oral mucosa moist. NECK: No JVD, no neck masses. HEART: S1 and S2 heard. Regular rate and rhythm. No murmur, no gallop. RESPIRATORY SYSTEM: Normal AP diameter. No accessory muscle use. No wheezing, no crackles. ABDOMEN: Soft, bowel sounds present, nontender, no distention. CENTRAL NERVOUS SYSTEM: No facial droop. Speech is clear. Obeys simple commands. Moves extremities. EXTREMITIES: trace ble edema, no erythema seen. Results & Data Results & Data Vital Signs (Past 12 Hours) Vital Signs Temp Pulse Resp BP Pulse Ox O2 Del Method 09/10/23 07:56 Room Air 09/10/23 07:21 36.7 C 82 18 124/72 98 Room Air
[2023-09-10] MEDS: CHOLECALCIFEROL 1,000 UNITS 25 MCG TAB PO SCH (21:01)
[2023-09-10] MEDS: ATORVASTATIN 40 MG TAB PO SCH (21:01)
[2023-09-10] MEDS: CYANOCOBALAMIN (B-12) 500 MCG TABLET PO SCH (21:02)
[2023-09-11 07:18] LABS: BUN Creatinine Ratio 21.1 (10-20); Calcium 9.5 mg/dl (8.6-10.3); Creatinine Clr Calc Pharmacy 94.9 ml/min; Est GFR (African American) 99.9 ml/min; Est GFR (Non-African American) 86.2 ml/min; Potassium 3.8 mmol/L (3.5-5.1)
[2023-09-11] MEDS: CALAMINE/PRAMOXINE LOTION 180 APPLN/180 ML BTL EXT SCH ×2 (08:14→20:06)
[2023-09-11] MEDS: ENOXAPARIN INJ 40 MG/0.4 ML SYR SQ SCH (08:14)
[2023-09-11] MEDS: MELOXICAM 7.5 MG TAB PO SCH (08:15)
[2023-09-11] MEDS: CEROVITE ADV FORMULA TAB PO SCH (08:15)
[2023-09-11] MEDS: guaiFENesin 600 MG TABCR PO SCH ×2 (08:15→20:04)
[2023-09-11] MEDS: GABAPENTIN 100 MG CAP PO SCH ×2 (08:15→20:06)
[2023-09-11] MEDS: ACETAMINOPHEN 325 MG TAB PO PRN ×2 (11:47→20:03)
--- NOTE | 2023-09-11 13:37 | Hospitalist Progress Note ---
Date of Service September 11, 2023 Assessment & Plan (1) COVID-19: Plan 82-year-old male with PMH of prediabetes, PAF, HTN, HLD, lumbar spinal stenosis presented to the ED 08/30 with progressive weakness and 2 days of upper respiratory symptoms. He was noted to be febrile in ED/COVID was positive/maintaining oxygen saturations on room air/receive ceftriaxone in the ED. He is being managed for the following: Generalized weakness Infection due to COVID-19 virus Patient came in with progressive weakness and found to be COVID 19 positive. Chest x-ray personally reviewed; no acute findings. Patient currently on room air, hemodynamically stable, afebrile. continue supportive care. Flutter valve, incentive spirometer, Mucinex twice daily. Monitor replete electrolytes as appropriate. Fall precaution. Patient uses scooter at baseline, lives with his spouse. Awaiting placement. Case management on board. Hyponatremia Sodium remains around 127 to 128 Urine osmolarity elevated with high urine sodium Hold indapamide Monitor daily BMP He continues to be hyponatremic despite fluid restriction. Will likely benefit from oral urea initiation. Consulted nephrology; appreciate recommendation. Continue fluid restriction for the time being Other chronic medical condition: Prediabetes-blood glucose within normal limits. Patient asked fingerstick glucose checks to be discontinued. HTN,on lisinopril 40 mg, amlodipine 10 mg, indapamide 2.5 mg, metoprolol 200 mg. Blood pressure on the low side. Holding antihypertensives. Patient is normotensive off antihypertensive. He is a started on metoprolol 50 mg twice daily. Titration of blood pressure medication as outpatient. PAF,on metoprolol HLD,on Lipitor lumbar spinal stenosis -gabapentin DVT prophylaxis: Lovenox Full code Dispo: Awaiting rehab placement. Please note the above document was generated using voice recognition software. It may contain grammatical, syntax or spelling errors. Any formal questions or concerns about the content, text or information contained within the body of this dictation should be directly addressed to the provider for clarification Admission and Anticipated Discharge Date Admission Date: September 01, 2023 Subjective Patient seen and examined at bedside. Comfortable; not in distress. Denies fever, chills, chest pain, shortness of breath, abdominal pain or urinary symptoms. No significant overnight events Review of Systems Review of Systems: All systems reviewed & are unremarkable except as noted in Subjective Physical Exam Physical Exam: GENERAL: Alert and oriented x3. NAD, on RA. HEENT: No pallor, no icterus. Pupils equal, round and reactive to light. Oral mucosa moist. NECK: No JVD, no neck masses. HEART: S1 and S2 heard. Regular rate and rhythm. No murmur, no gallop. RESPIRATORY SYSTEM: Normal AP diameter. No accessory muscle use. No wheezing, no crackles. ABDOMEN: Soft, bowel sounds present, nontender, no distention. CENTRAL NERVOUS SYSTEM: No facial droop. Speech is clear. Obeys simple commands. Moves extremities. EXTREMITIES: trace ble edema, no erythema seen. Results & Data Results & Data Vital Signs (Past 12 Hours) Vital Signs Temp Pulse Resp BP Pulse Ox O2 Del Method 09/11/23 08:03 36.5 C 77 16 146/79 H 96 Room Air
[2023-09-11] MEDS: UREA (UREA-NA) 15 GM PACK PO SCH (20:00)
[2023-09-11] MEDS: ATORVASTATIN 40 MG TAB PO SCH (20:04)
[2023-09-11] MEDS: METOPROLOL SUCC 50MG EXT REL TAB PO SCH (20:04)
[2023-09-11] MEDS: CYANOCOBALAMIN (B-12) 500 MCG TABLET PO SCH (20:05)
[2023-09-11] MEDS: CHOLECALCIFEROL 1,000 UNITS 25 MCG TAB PO SCH (20:05)
[2023-09-12 06:36] LABS: BUN Creatinine Ratio 31.5 (10-20); Calcium 9.7 mg/dl (8.6-10.3); Creatinine Clr Calc Pharmacy 92.3 ml/min; Est GFR (African American) 98.7 ml/min; Est GFR (Non-African American) 85.2 ml/min; Potassium 3.6 mmol/L (3.5-5.1)
[2023-09-12] MEDS: guaiFENesin 600 MG TABCR PO SCH ×2 (07:39→22:45)
[2023-09-12] MEDS: MELOXICAM 7.5 MG TAB PO SCH (07:39)
[2023-09-12] MEDS: CEROVITE ADV FORMULA TAB PO SCH (07:39)
[2023-09-12] MEDS: METOPROLOL SUCC 50MG EXT REL TAB PO SCH ×2 (07:39→22:48)
[2023-09-12] MEDS: ENOXAPARIN INJ 40 MG/0.4 ML SYR SQ SCH (07:40)
[2023-09-12] MEDS: UREA (UREA-NA) 15 GM PACK PO SCH ×2 (07:40→22:50)
[2023-09-12] MEDS: GABAPENTIN 100 MG CAP PO SCH ×2 (07:40→22:42)
[2023-09-12] MEDS: CALAMINE/PRAMOXINE LOTION 180 APPLN/180 ML BTL EXT SCH ×2 (07:41→22:49)
[2023-09-12] MEDS ORDERED: FUROSEMIDE 40 MG/4 ML VIAL IV SCH (09:30)
--- NOTE | 2023-09-12 09:30 | Nephrology Consultation ---
Date of Consultation September 12, 2023 Assessment & Plan (1) Hyponatremia: (2) COVID-19: +ve for Covid and came in with weakness. has Chronic Hyponatremia but now worsened. etiology of Low Na is multifactorial--- he was which is being thiazide added to the problem but I dont think this is the entire issue. 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 he was drinking 6-7 beers per day at home but has been in Hospital for 2 weeks now and still has low Na+. Pain and Covid can both make Low Na problem worse.. last dose of Indapamide was 09/07 so not totally out of the system yet. Plan 1 raise FFR to 1500 ml per patient request 2 he did not want iv so will give torsemide 40 bid for free water diuresis to get the urine osm lower with kcl 20 bid 3 raise urea to 30 bid 4 Stop Thiazide diuretics all type forever. Can use Loop diuretics though. 5 BMP once daily. 6 also check AM cortisol one time to r/o adrenal Insuff 7 Strict I and O. 8 Would like to get Na close to 130 for discharge History of Present Illness Reason for Consultation: Hyponatremia Attending Physician: Darek Hoffman MD History of Present Illness 82/M with Afibb, HTN, dyslipidemia, lumbar spinal stenosis presented to the ED with progressive weakness--Admitted on 08/30--so 2 weeks ago. na has been low all along. was around 130 but since then dropped a bit. was getting Indapamaide till 09/07/2023. he fell from bed and had difficulty getting back up from the floor due to significant weakness and had to call EMS. He also noted "cold symptoms" described as head congestion, cough, and runny nose. He denies fevers at home but was found to be febrile in the ED. He denies N/V/D. His appetite is at baseline. was +ve for Covid also. few days back started having low BP and multiple BP meds currently on Hold. na 127 and urine Osm high at 500+. had one dose of lasix iv but no change in na+ plus getting urea 15 bid. At home he drinks about 6-7 beers per day. Vital signs are good now. he is c/o Not able to drink enough. Also is tired of needles and Blood draws Physical Exam Physical Exam: GENERAL: Alert and oriented x3. NAD, on RA. HEENT: No pallor, no icterus. Oral mucosa moist. NECK: No JVD, no neck masses. HEART: S1 and S2 heard. Regular rate and rhythm. No murmur, no gallop. RESPIRATORY SYSTEM: Normal AP diameter. No accessory muscle use. No wheezing, no crackles. ABDOMEN: Soft, bowel sounds present, nontender, no distention. CENTRAL NERVOUS SYSTEM: No facial droop. Speech is clear. Obeys simple commands. Moves extremities. EXTREMITIES: trace ble edema, no erythema seen. ROS: as detailed in HPI. otherwise 12 Systems reviewed and negative Allergies Allergy/AdvReac Type Severity Reaction Status Date / Time No Known Allergies Allergy Verified 03/02/23 17:08 Home Medications Medication Instructions Recorded Confirmed Type amlodipine 10 mg tablet (Norvasc) 10 mg PO QAM 10/08/18 08/30/23 History atorvastatin 40 mg tablet (Lipitor) 40 mg PO HS 10/08/18 08/30/23 History cyanocobalamin (vitamin B-12) 1,000 mcg PO HS 10/08/18 08/30/23 History 1,000 mcg tablet (Vitamin B-12) indapamide 2.5 mg tablet 2.5 mg PO QAM 10/08/18 08/30/23 History propylene glycol 0.6 % eye drops 1 drp OPB QAM 10/08/18 08/30/23 History (Systane Balance) vit A 300 mcg-C 200 mg-E 27 1 tab PO QAM 10/08/18 08/30/23 History mg-lutein 2 mg and minerals tablet (Ocuvite with Lutein) metformin 500 mg 24 hr 500 mg PO PM 10/11/18 08/30/23 History tablet,extended release (gastric retention) metoprolol succinate 200 mg 200 mg PO QAM 10/11/18 08/30/23 History tablet,extended release 24 hr (Toprol XL) cholecalciferol (vitamin D3) 25 25 mcg PO HS 03/02/23 08/30/23 History mcg (1,000 unit) capsule (Vitamin D3) gabapentin 100 mg capsule See Rx Instructions .Route .COMPLEX 03/02/23 08/30/23 History lisinopril 40 mg tablet 40 mg PO QAM 03/02/23 08/30/23 History meloxicam 7.5 mg tablet 7.5 mg PO QAM 03/02/23 08/30/23 History Patient History Medical History Symptomatic anemia Acute GI bleeding PAF (paroxysmal atrial fibrillation) Alcohol use Lumbar spinal stenosis Dyslipidemia Prediabetes HTN (hypertension) Umbilical hernia Hx of spinal stenosis Surgical History History of tonsillectomy and adenoidectomy History of appendectomy Family History Mother CHF (congestive heart failure) Social History Smoking Status: Former smoker Second Hand Exposure: No; Do You Dip or Chew Tobacco: No; Hx Alcohol Use: Yes Alcohol type: beer Alcohol Intake Frequency Comment: 6-7 beers/day Hx Substance Use: No Preferred Language: [place] Communication Ability: Effective Winding Inspector Required: No Beliefs That Will Affect Care: None marital status: Current Living Situation: Spouse Other Information That Helps Us Care for You: No Feels Safe at Home: Yes Safety Concerns: Feels Safe At This Time Assistive Devices: Scooter/Electric Scooter Results & Data Vital Signs (Past 12 Hours) Vital Signs Temp Pulse Resp BP Pulse Ox O2 Del Method 09/12/23 07:18 36.6 C 70 16 134/74 97 Room Air Diagnostic Findings Reviewed.
[2023-09-12] MEDS: TORSEMIDE 10 MG TAB PO SCH ×2 (10:21→16:39)
[2023-09-12] MEDS: POTASSIUM CHLORIDE CRTAB 20 MEQ TABCR PO SCH ×2 (10:21→22:43)
--- NOTE | 2023-09-12 16:03 | Hospitalist Progress Note ---
Date of Service September 12, 2023 Assessment & Plan (1) COVID-19: Plan 82-year-old male with PMH of prediabetes, PAF, HTN, HLD, lumbar spinal stenosis presented to the ED 08/30 with progressive weakness and 2 days of upper respiratory symptoms. He was noted to be febrile in ED/COVID was positive/maintaining oxygen saturations on room air/receive ceftriaxone in the ED. He is being managed for the following: Generalized weakness Infection due to COVID-19 virus Patient came in with progressive weakness and found to be COVID 19 positive. Chest x-ray personally reviewed; no acute findings. Patient currently on room air, hemodynamically stable, afebrile. continue supportive care. Flutter valve, incentive spirometer, Mucinex twice daily. Monitor replete electrolytes as appropriate. Fall precaution. Patient uses scooter at baseline, lives with his spouse. Awaiting placement. Case management on board. Hyponatremia Sodium remains around 127 to 128 Urine osmolarity elevated with high urine sodium Hold indapamide Monitor daily BMP He continues to be hyponatremic despite fluid restriction. Nephrology on board, appreciate recommendation. Avoid thiazide type diuretics. Other chronic medical condition: Prediabetes-blood glucose within normal limits. Patient asked fingerstick glucose checks to be discontinued. HTN,on lisinopril 40 mg, amlodipine 10 mg, indapamide 2.5 mg, metoprolol 200 mg. Blood pressure on the low side. Holding antihypertensives. Patient is normotensive off antihypertensive. He is a started on metoprolol 50 mg twice daily. Titration of blood pressure medication as outpatient. PAF,on metoprolol HLD,on Lipitor lumbar spinal stenosis -gabapentin DVT prophylaxis: Lovenox Full code Dispo: Awaiting rehab placement. Likely after sodium stabilization. Please note the above document was generated using voice recognition software. It may contain grammatical, syntax or spelling errors. Any formal questions or concerns about the content, text or information contained within the body of this dictation should be directly addressed to the provider for clarification Admission and Anticipated Discharge Date Admission Date: September 01, 2023 Subjective Patient seen and examined at bedside. Comfortable; not in distress. Denies fever, chills, chest pain, shortness of breath, abdominal pain or urinary symptoms. No significant overnight events Physical Exam Physical Exam: GENERAL: Alert and oriented x3. NAD, on RA. HEENT: No pallor, no icterus. Pupils equal, round and reactive to light. Oral mucosa moist. NECK: No JVD, no neck masses. HEART: S1 and S2 heard. Regular rate and rhythm. No murmur, no gallop. RESPIRATORY SYSTEM: Normal AP diameter. No accessory muscle use. No wheezing, no crackles. ABDOMEN: Soft, bowel sounds present, nontender, no distention. CENTRAL NERVOUS SYSTEM: No facial droop. Speech is clear. Obeys simple commands. Moves extremities. EXTREMITIES: trace ble edema, no erythema seen. Results & Data Results & Data Vital Signs (Past 12 Hours) Vital Signs Temp Pulse Resp BP Pulse Ox O2 Del Method 09/12/23 15:59 36.8 C 69 16 127/73 97 Room Air 09/12/23 09:25 Room Air 09/12/23 07:18 36.6 C 70 16 134/74 97 Room Air
[2023-09-12] MEDS: CYANOCOBALAMIN (B-12) 500 MCG TABLET PO SCH (22:43)
[2023-09-12] MEDS: ATORVASTATIN 40 MG TAB PO SCH (22:46)
[2023-09-12] MEDS: CHOLECALCIFEROL 1,000 UNITS 25 MCG TAB PO SCH (22:48)
[2023-09-13] MEDS: METOPROLOL SUCC 50MG EXT REL TAB PO SCH ×2 (08:22→20:03)
[2023-09-13] MEDS: GABAPENTIN 100 MG CAP PO SCH ×2 (08:23→20:02)
[2023-09-13] MEDS: guaiFENesin 600 MG TABCR PO SCH ×2 (08:23→20:01)
[2023-09-13] MEDS: CEROVITE ADV FORMULA TAB PO SCH (08:23)
[2023-09-13] MEDS: TORSEMIDE 10 MG TAB PO SCH ×2 (08:23→16:48)
[2023-09-13] MEDS: POTASSIUM CHLORIDE CRTAB 20 MEQ TABCR PO SCH ×2 (08:23→20:01)
[2023-09-13] MEDS: CALAMINE/PRAMOXINE LOTION 180 APPLN/180 ML BTL EXT SCH ×2 (08:24→20:01)
[2023-09-13] MEDS: ENOXAPARIN INJ 40 MG/0.4 ML SYR SQ SCH (08:24)
[2023-09-13] MEDS: UREA (UREA-NA) 15 GM PACK PO SCH (08:24)
[2023-09-13 08:32] LABS: BUN Creatinine Ratio 62.4 (10-20); Calcium 10.4 mg/dl (8.6-10.3); Creatinine Clr Calc Pharmacy 66.7 ml/min; Est GFR (African American) 78.8 ml/min; Magnesium 1.6 mg/dl (1.7-2.4); Phosphorus 4.1 mg/dl (2.5-4.9); Potassium 3.5 mmol/L (3.5-5.1)
[2023-09-13] MEDS: MAGNESIUM OXIDE 400 MG TAB PO SCH ×2 (11:16→20:01)
--- NOTE | 2023-09-13 11:30 | Nephrology Progress Note ---
Date of Service September 13, 2023 Assessment & Plan Admission and Anticipated Discharge Date Admission Date: September 01, 2023 Subjective Assessment & Plan (1) Hyponatremia: (2) COVID-19: +ve for Covid and came in with weakness. has Chronic Hyponatremia but now worsened. etiology of Low Na is multifactorial--- he was which is being thiazide added to the problem but I dont think this is the entire issue. 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 he was drinking 6-7 beers per day at home but has been in Hospital for 2 weeks now without beer and still has low Na+. Pain and Covid can both make Low Na problem worse.. last dose of Indapamide was 1/5 so not totally out of the system yet. Plan 1 Continue FFR 1500 ml .he is asking to raise the limit and almost certainly will drink more when he goes home. 2 Continue torsemide 40 bid for free water diuresis to get the urine osm lower with kcl 20 bid 3 Stop Urea--BUN rising too fast 4 Stop Thiazide diuretics all type forever and list as allergy. Can and should use Loop diuretics though. 5 BMP once daily. 6 also check AM cortisol one time to r/o adrenal Insuff 7 Strict I and O. 8 he will need BMP after Discharge. S--He is c/o Not able to drink enough. No new issues. Feels fine otherwise. Physical Exam Physical Exam: GENERAL: Alert and oriented x3. NAD, on RA. HEENT: No pallor, no icterus. Oral mucosa moist. NECK: No JVD, no neck masses. HEART: S1 and S2 heard. Regular rate and rhythm. No murmur, no gallop. RESPIRATORY SYSTEM: Normal AP diameter. No accessory muscle use. No wheezing, no crackles. ABDOMEN: Soft, bowel sounds present, nontender, no distention. CENTRAL NERVOUS SYSTEM: No facial droop. Speech is clear. Obeys simple commands. Moves extremities. EXTREMITIES: trace ble edema, no erythema seen. Results & Data Vital Signs (Past 12 Hours) Vital Signs Temp Pulse Resp BP Pulse Ox O2 Del Method 09/13/23 07:56 36.5 C 82 18 110/70 96 Room Air
--- NOTE | 2023-09-13 15:34 | Hospitalist Progress Note ---
Date of Service September 13, 2023 Assessment & Plan (1) COVID-19: Plan 82-year-old male with PMH of prediabetes, PAF, HTN, HLD, lumbar spinal stenosis presented to the ED 08/30 with progressive weakness and 2 days of upper respiratory symptoms. He was noted to be febrile in ED/COVID was positive/maintaining oxygen saturations on room air/receive ceftriaxone in the ED. He is being managed for the following: Generalized weakness Infection due to COVID-19 virus Patient came in with progressive weakness and found to be COVID 19 positive. Chest x-ray personally reviewed; no acute findings. Patient currently on room air, hemodynamically stable, afebrile. continue supportive care. Flutter valve, incentive spirometer, Mucinex twice daily. Monitor replete electrolytes as appropriate. Fall precaution. Patient uses scooter at baseline, lives with his spouse. Awaiting placement. Case management on board. Hyponatremia Sodium remains around 127 to 128 Urine osmolarity elevated with high urine sodium Hold indapamide Monitor daily BMP He continues to be hyponatremic despite fluid restriction. Nephrology on board, appreciate recommendation. Avoid thiazide type diuretics. Other chronic medical condition: Prediabetes-blood glucose within normal limits. Patient asked fingerstick glucose checks to be discontinued. HTN,on lisinopril 40 mg, amlodipine 10 mg, indapamide 2.5 mg, metoprolol 200 mg. Blood pressure on the low side. Holding antihypertensives. Patient is normotensive off antihypertensive. He is a started on metoprolol 50 mg twice daily. Titration of blood pressure medication as outpatient. PAF,on metoprolol HLD,on Lipitor lumbar spinal stenosis -gabapentin DVT prophylaxis: Lovenox Full code Dispo: Awaiting rehab placement. Likely jd Please note the above document was generated using voice recognition software. It may contain grammatical, syntax or spelling errors. Any formal questions or concerns about the content, text or information contained within the body of this dictation should be directly addressed to the provider for clarification Admission and Anticipated Discharge Date Admission Date: September 01, 2023 Subjective Patient seen and examined at bedside. Comfortable; not in distress. Denies fever, chills, chest pain, shortness of breath, abdominal pain or urinary symptoms. No significant overnight events Physical Exam Physical Exam: GENERAL: Alert and oriented x3. NAD, on RA. HEENT: No pallor, no icterus. Pupils equal, round and reactive to light. Oral mucosa moist. NECK: No JVD, no neck masses. HEART: S1 and S2 heard. Regular rate and rhythm. No murmur, no gallop. RESPIRATORY SYSTEM: Normal AP diameter. No accessory muscle use. No wheezing, no crackles. ABDOMEN: Soft, bowel sounds present, nontender, no distention. CENTRAL NERVOUS SYSTEM: No facial droop. Speech is clear. Obeys simple commands. Moves extremities. EXTREMITIES: trace ble edema, no erythema seen. Results & Data Results & Data Vital Signs (Past 12 Hours) Vital Signs Temp Pulse Resp BP BP Pulse Ox O2 Del Method 09/13/23 14:52 37.2 C 77 18 114/63 94 Room Air 09/13/23 07:56 36.5 C 82 18 110/70 96 Room Air
[2023-09-13] MEDS: ATORVASTATIN 40 MG TAB PO SCH (20:01)
[2023-09-13] MEDS: CYANOCOBALAMIN (B-12) 500 MCG TABLET PO SCH (20:02)
[2023-09-13] MEDS: CHOLECALCIFEROL 1,000 UNITS 25 MCG TAB PO SCH (20:02)
[2023-09-14 06:01] LABS: Calcium 10.4 mg/dl (8.6-10.3); Potassium 3.1 mmol/L (3.5-5.1)
[2023-09-14 06:07] LABS: Creatinine Clr Calc Pharmacy 58.6 ml/min; Est GFR (African American) 67.4 ml/min; Est GFR (Non-African American) 58.1 ml/min
[2023-09-14] MEDS: METOPROLOL SUCC 50MG EXT REL TAB PO SCH (08:17)
[2023-09-14] MEDS: CEROVITE ADV FORMULA TAB PO SCH (08:18)
[2023-09-14] MEDS: guaiFENesin 600 MG TABCR PO SCH (08:18)
[2023-09-14] MEDS: GABAPENTIN 100 MG CAP PO SCH (08:18)
[2023-09-14] MEDS: POTASSIUM CHLORIDE CRTAB 20 MEQ TABCR PO SCH (08:18)
[2023-09-14] MEDS: MAGNESIUM OXIDE 400 MG TAB PO SCH (08:18)
[2023-09-14] MEDS: TORSEMIDE 10 MG TAB PO SCH (08:18)
[2023-09-14] MEDS: CALAMINE/PRAMOXINE LOTION 180 APPLN/180 ML BTL EXT SCH (08:19)
[2023-09-14] MEDS: ENOXAPARIN INJ 40 MG/0.4 ML SYR SQ SCH (08:19)
[2023-09-14] MEDS ORDERED: POTASSIUM CHLORIDE CRTAB 20 MEQ TABCR PO ONE (08:34)
--- NOTE | 2023-09-14 11:56 | Discharge Summary ---
Date of Service September 14, 2023 Admission HPI Per Admitting Provider This is an 82 y/o male with prediabetes, PAF, HTN, dyslipidemia, lumbar spinal stenosis, and other history as outlined who presents to the ED with progressive weakness. Pt reports that he "slid out of bed" three times in the last 24 hours and had difficulty getting back up from the floor due to significant weakness and had to call EMS. He does have a history of lumbar spinal stenosis so reports that he does not have good LE strength at baseline but has been even more weak than usual the last 1-2 days. He also notes the onset of "cold symptoms" two days ago described as head congestion, cough, and runny nose. He denies fevers at home but was found to be febrile in the ED. He denies N/V/D. His appetite is at baseline. He denies chest pain, palpitations, shortness of breath, dizziness, syncope, or SLADE. He reports hitting his neck on part of the bed the last time that he slid off with resultant neck pain but imaging in the ED was negative for fracture. He reports it "feels bruised" - denies hitting head or LOC. No increase in chronic lower back issues. Last took his medications yesterday. Admission Exam Per Admitting Provider General: awake, alert, NAD Eyes: no scleral icterus ENT: moist mucus membranes Neck: trachea midline Heart: RRR Lungs: CTA bilaterally without W/R/R Abdomen: soft, NT, +BS Extremities: 2-3+ bilateral LE edema Skin: no jaundice Neuro: Ox3, moving all extremities, no dysarthria, no confusion Principal Diagnosis Generalized weakness Infection due to COVID-19 virus Hyponatremia Discharge Exam GENERAL: Alert and oriented x3. NAD, on RA. HEENT: No pallor, no icterus. Pupils equal, round and reactive to light. Oral mucosa moist. NECK: No JVD, no neck masses. HEART: S1 and S2 heard. Regular rate and rhythm. No murmur, no gallop. RESPIRATORY SYSTEM: Normal AP diameter. No accessory muscle use. No wheezing, no crackles. ABDOMEN: Soft, bowel sounds present, nontender, no distention. CENTRAL NERVOUS SYSTEM: No facial droop. Speech is clear. Obeys simple commands. Moves extremities. EXTREMITIES: trace ble edema, no erythema seen. Discharge Data Allergies Allergy/AdvReac Type Severity Reaction Status Date / Time No Known Allergies Allergy Verified 03/02/23 17:08 Consultations 08/30/23 08:47 ED Decision to Admit Stat 09/11/23 13:35 Consult Nephrology Routine Ordered Studies 08/30/23 07:15 CT cervical spine wo con Stat CT head/brain wo con Stat Hospital Course (1) COVID-19: Plan 82-year-old male with PMH of prediabetes, PAF, HTN, HLD, lumbar spinal stenosis presented to the ED 08/30 with progressive weakness and 2 days of upper respiratory symptoms. He was noted to be febrile in ED/COVID was positive/maintaining oxygen saturations on room air/receive ceftriaxone in the ED. He was managed for the following: Generalized weakness Infection due to COVID-19 virus Patient came in with progressive weakness and found to be COVID 19 positive. Chest x-ray personally reviewed; no acute findings. Patient currently on room air, hemodynamically stable, afebrile. continue supportive care. Flutter valve, incentive spirometer, Mucinex twice daily. Monitor replete electrolytes as appropriate. Fall precaution. Patient uses scooter at baseline, lives with his spouse. Being discharged to snf. Hyponatremia Sodium remains around 127 to 128 Urine osmolarity elevated with high urine sodium DC indapamide; started on lasix 40 mg daily w/ kcl 20 meq daily on discharge Monitor daily BMP He continues to be hyponatremic despite fluid restriction. Nephrology on board, appreciate recommendation. Avoid thiazide type diuretics. Other chronic medical condition: Prediabetes-blood glucose within normal limits. Patient asked fingerstick glucose checks to be discontinued. HTN,on lisinopril 40 mg, amlodipine 10 mg, indapamide 2.5 mg, metoprolol 200 mg. Blood pressure on the low side. Holding antihypertensives. Patient is normotensive off antihypertensive. He is a started on metoprolol 50 mg twice daily. Titration of blood pressure medication as outpatient. PAF,on metoprolol HLD,on Lipitor lumbar spinal stenosis -gabapentin DVT prophylaxis: Lovenox Full code Patient is being discharged to SNF with following instruction at the point of discharge: Follow-up with your primary care physician within a week time and likely you will need labs CBC/CMP/magnesium/phosphorus. For your generalized weakness, continue with physical therapy. For your hyponatremia, maintain fluid restriction of 1500 mL a day. Your indapamide has been stopped. You will be discharged on furosemide 40 mg daily and potassium chloride 20 mill equivalent daily. You will need repeat BMP and magnesium level on Sunday, coordinate with the PCP office to set up the test. Since your blood pressure has been on the lower side, your amlodipine and lisinopril has been stopped. You will continue with your metoprolol at 50 mg twice daily. Continue to measure your blood pressure twice a day, maintain a log to take to your primary care physician for further management/evaluation. Follow up with your nephrology in 1-2 weeks time. Take your medications as prescribed. Please make sure that you are able to get your medications today by calling your pharmacy before you leave the hospital so that your treatment continuity is not broken. Please note the above document was generated using voice recognition software. It may contain grammatical, syntax or spelling errors. Any formal questions or concerns about the content, text or information contained within the body of this dictation should be directly addressed to the provider for clarification Home Health Attestation I certify that this patient is under my care and that I, or a physicians geriatric assistant working with me, had a face to-face encounter that meets the home health [id number] encounter requirements with this patient. The encounter with the patient was in whole, or in part, for the following medical condition, which is the primary reason for home health care (list medical condition): I certify that, based on my findings, the following services are medically necessary home health services: My clinical findings support the need for the above services because: Further, I certify that my clinical findings support that this patient is homebound (i.e. absences from home require considerable and taxing effort and are for medical reasons or shinto services or infrequently or of short duration when for other reasons) because: Certification for Home Health Services: Based on the above findings, I certify that this patient is confined to the home and needs intermittent chcf care, physical therapy and/or speech therapy or continues to need occupational therapy. The patient is under my care, and I have initiated the establishment of the plan of care. This patient will be followed by a physician who will periodically review the plan of care. Total Time Total Time Spent Total Time Spent (In Minutes): 40 Discharge Plan Discharge Items Patient Disposition: Transfer Care Home Fac Reason For Visit: WEAKNESS, +TROPONIN Discharge Diagnosis: Generalized weakness Infection due to COVID-19 virus Hyponatremia Activity: Resume your previous activity Non-emergency contact: Primary Care Provider Call non-emergency contact if: you have any medication questions, your symptoms worsen and your temperature is above 101.5 Follow-up/Referrals: Jerry Medrano MD [Primary Care Provider] - Diet: Carb Consistent or DM2 Fluids: 1500ml (6 cups) Addtl Attending Provider Instructions: Follow-up with your primary care physician within a week time and likely you will need labs CBC/CMP/magnesium/phosphorus. For your generalized weakness, continue with physical therapy. For your hyponatremia, maintain fluid restriction of 1500 mL a day. Your indapamide has been stopped. You will be discharged on furosemide 40 mg daily and potassium chloride 20 mill equivalent daily. You will need repeat BMP and magnesium level on Sunday, coordinate with the PCP office to set up the test. Since your blood pressure has been on the lower side, your amlodipine and l isinopril has been stopped. You will continue with your metoprolol at 50 mg twice daily. Continue to measure your blood pressure twice a day, maintain a log to take to your primary care physician for further management/evaluation. Follow up with your nephrology in 1-2 weeks time. Take your medications as prescribed. Please make sure that you are able to get your medications today by calling your pharmacy before you leave the hospital so that your treatment continuity is not broken. Pending Studies at Discharge: No Stand-Alone Forms: My [facility] Skilled Items Patient informed of condition?: Yes DNR: No Discharge Level of Care: Skilled Communicable Disease: No Discharge Prognosis: Stable Lines: None Urinary Catheter: No Medications and DC Order Prescriptions: New metoprolol succinate 50 mg Tablet Extended Release 24 Hr 50 mg PO BID Qty: 60 0RF furosemide 40 mg tablet 40 mg PO DAILY Qty: 30 0RF magnesium oxide 400 mg (241.3 mg magnesium) Tablet 400 mg PO BID Qty: 60 0RF potassium chloride 20 mEq tablet extended release 20 meq PO DAILY Qty: 30 0RF Rx Instructions: 1 tab daily to be taken with lasix. Continued atorvastatin [Lipitor] 40 mg tablet 40 mg PO HS cyanocobalamin (vitamin B-12) [Vitamin B-12] 1,000 mcg tablet 1,000 mcg PO HS Ocuvite with Lutein 1,000 unit-200 mg-60 unit-2 mg Tablet 1 tab PO QAM Systane Balance 0.6 % Drops 1 drp OPB QAM metformin 500 mg Tablet,Er Suleiman.Retention 24 Hr 500 mg PO PM meloxicam 7.5 mg tablet 7.5 mg PO QAM cholecalciferol (vitamin D3) [Vitamin D3] 25 mcg (1,000 unit) Capsule 25 mcg PO HS gabapentin 100 mg capsule See Rx Instructions .ROUTE .COMPLEX Rx Instructions: PER PT'S SPOUSE "TAKES 100 MG QAM, THEN 200 MG QHS". Discontinued indapamide 2.5 mg tablet 2.5 mg PO QAM amlodipine [Norvasc] 10 mg tablet 10 mg PO QAM metoprolol succinate [Toprol XL] 200 mg tablet extended release 24 hr 200 mg PO QAM Rx Instructions: Hold heart rate less than 60, systolic blood pressure looks than 120 lisinopril 40 mg tablet 40 mg PO QAM Discharge Orders: Discharge Order (Routine); Ordered 09/14/23 Ordered By: Darek Hoffman Admission Data Admit Date/Time: 09/01/23 16:36 Attending Provider: Darek Hoffman Admit Provider: Olive Scanlon Primary Care Provider: Jerry Medrano Other Providers: [facility]; Demar Roy [facility]; Olive Scanlon; Darek Hoffman; Jamie Viera Other Interventions: Discharge Summary Assessment (RN) Last Done: 09/14/23 10:26
[2023-09-14] MEDS ORDERED: POTASSIUM CHLORIDE CRTAB 20 MEQ TABCR PO SCH (21:00)
== END 2023-09-14 11:05 | DRG 178 ==
LOC: EDINP 06:42 → ED 06:42 → SUATTDRO 08:59 → 2E 08-31 11:20 → SUATTDRO 09-01 16:36 → 3E 09-04 21:40

== ENCOUNTER 2023-11-23 10:14 | Inpatient (IN) ==
[2023-11-23 10:44] LABS: Basophils # (auto) 0.05 K/uL (0.00-0.20); Basophils % (auto) 0.3 %; Eosinophils # (auto) 0.06 K/uL (0.00-0.50); Eosinophils % (auto) 0.4 %; Hematocrit (blood only) 41.3 % (42.0-52.0); Hemoglobin 14.4 g/dl (14.0-18.0); Immature Granulocytes # (auto) 0.05 K/uL (0.01-0.20); Immature Granulocytes % (auto) 0.3 %; Lymphocytes # (auto) 1.24 K/uL (1.20-3.40); Lymphocytes % (auto) 8.4 %; Mean Corpuscular Hemoglobin 32.1 pg (25.0-34.0); Mean Corpuscular Hgb Conc 34.9 g/dL (32.0-36.0); Mean Platelet Volume 10.7 fL (9.4-12.4); Monocytes # (auto) 0.87 K/uL (0.11-0.59); Monocytes % (auto) 5.9 %; Neutrophils # (auto) 12.54 K/uL (1.40-6.50); Neutrophils % (auto) 84.7 %; Platelet Count 270 K/uL (130-400); RDW Coefficient of Variation 13.6 % (11.5-14.5); RDW Standard Deviation 46.3 fL (36.4-46.3); Red Blood Count 4.49 M/uL (4.70-6.10); White Blood Count 14.81 K/ul (4.8-10.8)
[2023-11-23 11:05] LABS: Albumin Level 3.8 gm/dl (3.4-5.0); BUN Creatinine Ratio 15.3 (10-20); Bilirubin,Total 1.1 mg/dl (0.2-1.0); Creatinine Clr Calc Pharmacy 88.8 ml/min; Est GFR (African American) 99.3 ml/min; Est GFR (Non-African American) 85.7 ml/min; Globulin 3.7 gm/dl (2.5-4.0); Potassium 3.3 mmol/L (3.5-5.1); Total Protein 7.5 gm/dl (6.0-8.3)
[2023-11-23 11:10] LABS: Troponin I High Sensitivity 14.2 pg/ml (0-20)
--- NOTE | 2023-11-23 11:36 | Emergency Department Note ---
Impression & Plan Incarcerated hernia, SBO (small bowel obstruction), Leukocytosis, Vomiting, Acute hypokalemia ED Provider Note HISTORY OF PRESENT ILLNESS: Patient is an 82-year-old male presenting with vomiting and abdominal hernia. Patient reportedly has been having recurrent episodes of vomiting for the last 48 hours. He has not had a bowel movement in the 48 hours. He also has had a ventral hernia for over 25 years, but reports that starting last night the hernia has progressively increased in size and is very hard to the touch, which is abnormal for his hernia. No reported dysuria or hematuria. No reported fevers. Patient denies any chest pain or shortness of breath. Abdominal surgical history significant for an appendectomy. ROS: as above PHYSICAL EXAM: Constitutional: Patient appears in no acute distress. HENT: Head: Normocephalic and atraumatic. Eyes: EOMI, PERRL Mouth/Throat: Mucous membranes moist. Neck: Trachea midline. Neck supple. Cardiovascular: RRR, No murmurs, rubs or gallops. Intact distal pulses. Pulmonary/Chest: No respiratory distress. Breath sounds clear and equal bilaterally. No wheezes or rales. Abdominal: Abdomen soft, no rebound or guarding. Patient has a palpable, very hard hernia just above his umbilicus. Unable to manually reduce it. No overlying skin changes Musculoskeletal: No edema, tenderness or deformity noted. Skin: Warm and dry. No rash, erythema, pallor or cyanosis Psychiatric: Appropriate mood and affect for situation. Neurological: Alert and keenly responsive. CN II-XII grossly intact, moving all extremities equally and fully. MDM: - Vitals signs showed hypertension and tachycardia - History obtained via patient. History as above. - Chronic conditions affecting care: PAF; HTN; HLD; lumbar spinal stenosis - Differential diagnoses include, but are not limited to: appendicitis; incarcerated hernia; small bowel obstruction; diverticulitis; colitis - Order placed for continuous cardiac monitoring. At this time, monitor showed rate of 82 bpm with normal sinus rhythm, per my interpretation. - External medical records reviewed. Discharge summary dated 09/14/2023 was reviewed. Patient was admitted at that time for generalized weakness secondary to COVID-19 and hyponatremia. - EKG interpreted by myself showed normal sinus rhythm. Rate 91 bpm. QT 420. No acute ischemic changes. Noted to have some atrial ectopy. - Laboratory workup interpreted by myself showed leukocytosis (WBC 14.81) with left shift; normal lactate; slight hyponatremia (Na 135); hypokalemia (K 3.3); normal troponin; normal lipase - CT abdomen/pelvis with IV contrast showed small bowel obstruction secondary to incarcerated small bowel loop within the large complex of the umbilical hernia. - Offered patient antiemetics and pain meds in the ER, but he declined. - Discussed case with general surgeon foreign correspondent, Dr. Rubalcava at 12:12 pm. He came to evaluate patient and plans to take patient to OR for emergent surgery. Plan for hospitalist admission after surgery. - Discussion was had with ed case manager about patient's case and need for admission - Hospitalist consulted for admission - [facility] after [facility]. ASSESSMENT AND PLAN: Diagnosis: incarcerated hernia; small bowel obstruction; vomiting; leukocytosis; hypokalemia Plan: to OR then admit Past Med/Surg History Medical History Symptomatic anemia Acute GI bleeding PAF (paroxysmal atrial fibrillation) Alcohol use Lumbar spinal stenosis Dyslipidemia Prediabetes HTN (hypertension) Umbilical hernia Hx of spinal stenosis Surgical History History of tonsillectomy and adenoidectomy History of appendectomy Family History Mother CHF (congestive heart failure) Social History Smoking Status: Former smoker Second Hand Exposure: No; Do You Dip or Chew Tobacco: No; Hx Alcohol Use: Yes Alcohol type: beer Alcohol Intake Frequency Comment: 6-7 beers/day Hx Substance Use: No Preferred Language: German Communication Ability: Effective [employer] Professor Required: No Beliefs That Will Affect Care: None marital status: Current Living Situation: Spouse Feels Safe at Home: Yes Assistive Devices: Scooter/Electric Scooter Allergies Allergies Allergy/AdvReac Type Severity Reaction Status Date / Time No Known Allergies Allergy Verified 03/02/23 17:08 Home Meds Home Medications Medication Instructions Recorded Confirmed atorvastatin 40 mg tablet (Lipitor) 40 mg PO HS 10/08/18 08/30/23 cyanocobalamin (vitamin B-12) 1,000 mcg PO HS 10/08/18 08/30/23 1,000 mcg tablet (Vitamin B-12) propylene glycol 0.6 % eye drops 1 drp OPB QAM 10/08/18 08/30/23 (Systane Balance) vit A 300 mcg-C 200 mg-E 27 1 tab PO QAM 10/08/18 08/30/23 mg-lutein 2 mg and minerals tablet (Ocuvite with Lutein) metformin 500 mg 24 hr 500 mg PO PM 10/11/18 08/30/23 tablet,extended release (gastric retention) cholecalciferol (vitamin D3) 25 25 mcg PO HS 03/02/23 08/30/23 mcg (1,000 unit) capsule (Vitamin D3) gabapentin 100 mg capsule See Rx Instructions .Route .COMPLEX 03/02/23 08/30/23 meloxicam 7.5 mg tablet 7.5 mg PO QAM 03/02/23 08/30/23 Previous Rx's Medication Instructions Recorded furosemide 40 mg tablet 40 mg PO DAILY #30 tabs 09/14/23 magnesium oxide 400 mg (241.3 mg 400 mg PO BID #60 tabs 09/14/23 magnesium) tablet metoprolol succinate 50 mg 50 mg PO BID #60 tabs 09/14/23 tablet,extended release 24 hr potassium chloride 20 mEq 20 meq PO DAILY #30 tabs 09/14/23 tablet,extended release Results & Data (ED) Vital Signs Vital Signs - 24 hr 11/23/23 10:20 11/23/23 10:32 11/23/23 11:16 Temperature 36.6 C Temperature Source Oral Pulse Rate 89 90 Pulse Rate [Left Finger] 93 H Pulse Rhythm [Left Finger] Pulse Strength [Left Finger] Respiratory Rate 18 21 Respiratory Effort / Characteristics Non-Labored Spontaneous Non-Labored Respiratory Depth Normal Normal Respiratory Pattern Blood Pressure 133/59 L Blood Pressure [Left Arm] 163/84 H Blood Pressure Mean 83 Blood Pressure Mean [Left Arm] 110 Blood Pressure Position [Left Arm] Pulse Oximetry 97 97 Oxygen Delivery Method Room Air Room Air Sepsis Recent Fever Within 48 Hours No Sepsis New/Unexplained Change in Mental Status N/A Sepsis Action Taken by Nursing No Action Required 11/23/23 11:16 11/23/23 12:30 Temperature Temperature Source Pulse Rate 93 H Pulse Rate [Left Finger] 82 Pulse Rhythm [Left Finger] Regular Pulse Strength [Left Finger] Normal Respiratory Rate 21 20 Respiratory Effort / Characteristics Non-Labored Spontaneous Respiratory Depth Normal Respiratory Pattern Regular Blood Pressure Blood Pressure [Left Arm] 163/89 H Blood Pressure Mean Blood Pressure Mean [Left Arm] 113 Blood Pressure Position [Left Arm] Sitting Pulse Oximetry 97 97 Oxygen Delivery Method Room Air Room Air Sepsis Recent Fever Within 48 Hours Sepsis New/Unexplained Change in Mental Status Sepsis Action Taken by Nursing Laboratory Data 11/23/23 10:28 11/23/23 10:28 Lab Results 11/23/23 11/23/23 Range/Units 10:28 10:52 WBC 14.81 H (4.8-10.8) K/ul RBC 4.49 L (4.70-6.10) M/uL Hgb 14.4 (14.0-18.0) g/dl Hct 41.3 L (42.0-52.0) % MCV 92.0 (80.0-100.0) fL MCH 32.1 (25.0-34.0) pg MCHC 34.9 (32.0-36.0) g/dL RDW Std Deviation 46.3 (36.4-46.3) fL RDW Coeff of Steven 13.6 (11.5-14.5) % Plt Count 270 (130-400) K/uL MPV 10.7 (9.4-12.4) fL Immature Gran % (Auto) 0.3 % Neut % (Auto) 84.7 % Lymph % (Auto) 8.4 % Canadian % (Auto) 5.9 % Eos % (Auto) 0.4 % Baso % (Auto) 0.3 % Neut # (Auto) 12.54 H (1.40-6.50) K/uL Lymph # (Auto) 1.24 (1.20-3.40) K/uL Canadian # (Auto) 0.87 H (0.11-0.59) K/uL Eos # (Auto) 0.06 (0.00-0.50) K/uL Baso # (Auto) 0.05 (0.00-0.20) K/uL Immature Gran # (Auto) 0.05 (0.01-0.20) K/uL Sodium 135 L (136-145) mmol/L Potassium 3.3 L (3.5-5.1) mmol/L Chloride 97 L (98-107) mmol/L Carbon Dioxide 27 (21-32) mmol/L Anion Gap 11 (3-11) BUN 11 (6-23) mg/dl Creatinine 0.72 (0.6-1.4) mg/dl Est Cr Clr Drug Dosing 88.8 ml/min Est GFR ( Amer) 99.3 ml/min Est GFR (Non-Af Amer) 85.7 ml/min BUN/Creatinine Ratio 15.3 (10-20) Glucose 135 H (70-99(Fasting)) mg/dl Lactate 1.7 (0.4-2.0) mmol/L Calcium 10.0 (8.6-10.3) mg/dl Total Bilirubin 1.1 H (0.2-1.0) mg/dl AST 16 (13-39) U/L ALT 14 (7-52) U/L Alkaline Phosphatase 147 H (34-104) U/L Troponin I High Sens 14.2 (0-20) pg/ml Total Protein 7.5 (6.0-8.3) gm/dl Albumin 3.8 (3.4-5.0) gm/dl Globulin 3.7 (2.5-4.0) gm/dl Albumin/Globulin Ratio 1.0 (0.9-2) Lipase 9 L (11-82) U/L Administered Medications Discontinued Medications Ioversol (Optiray 320 100ml) 93 ml IV ONCE ONE Stop: 11/23/23 11:49 Last Admin: 11/23/23 11:49 Dose: 93 ml Documented By: [facility] Imaging Data Radiologist's Impression: Abdomen/Pelvis CT 11/23/23 11:23 CT SCAN OF THE ABDOMEN AND PELVIS WITH IV CONTRAST CLINICAL HISTORY: Vomiting. COMPARISON STUDY: No priors. TECHNIQUE: Following the IV administration of 93 cc of Optiray 320, CT scan of the abdomen and pelvis is performed from the lung bases to the proximal femora. Images are reviewed in the axial, sagittal, and coronal planes. IV contrast was administered without complication. A dose lowering technique was utilized adhering to the principles of ALARA. CT DOSE: 1337.02 mGy.cm FINDINGS: Lung bases: The heart is mildly enlarged and without pericardial effusion. The coronary arteries and aortic valve leaflets are densely calcified. The lung bases are clear noting bibasilar scarring/atelectasis. There is a small hiatal hernia. Liver: The contrast-enhanced liver is normal in size, contour, and attenuation. There is no intrahepatic biliary ductal dilatation. The hepatic veins and portal veins are patent. Gallbladder: Unremarkable. Spleen: Normal in size and attenuation. A 14 mm splenic hypodensity seen on image #87 is indeterminate and statistically of doubtful significance. 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 Pancreas: Moderately atrophic and grossly unremarkable. 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 The left adrenal gland is normal in appearance. Kidneys: The contrast enhanced kidneys demonstrate cortical atrophy and are without hydronephrosis. The kidneys enhance symmetrically. Scattered subcentimeter cortical hypodensities likely represent cysts but are too small for definitive characterization. Abdominal vasculature: The abdominal aorta is normal in course and caliber noting advanced atherosclerotic calcification. Bowel: There are small bowel loops contained within a large fat-containing subumbilical hernia. The small bowel loops above the hernia are distended and fluid-filled, measuring up to 4 cm diameter. The small bowel exiting exiting the hernia the distal small bowel is decompressed. This is consistent with a site of small bowel obstruction, and the transition point is seen on axial image #212. There is no pneumatosis intestinalis or portal venous gas. No focally thick- walled bowel loops are identified. There is advanced colonic diverticulosis without CT evidence of acute diverticulitis. The appendix is not identified and reported surgically absent. Peritoneum: There is a small volume of pelvic ascites. No intraperitoneal free air is identified. There is a large complex fat-containing supraumbilical hernia which contains bowel and trace fluid. This is seen on axial image #207. There is also a fat-containing umbilical hernia. There is an indeterminant low- attenuation structure anterior to the right kidney seen on image #140. This measures 2.6 x 1.8 cm, measures water density, and may represent a lymphangioma. Lymphadenopathy: None. Pelvic viscera: The prostate gland is markedly enlarged and heterogeneous. The bladder wall is thickened/trabeculated indicating chronic outlet obstruction. Bladder wall thickening is asymmetrically greatest anteriorly on the left. This is best seen on image #297 and measures up to 1.0 cm in thickness. There are bilateral fat containing inguinal hernias, left larger than right. The left groin hernia contains trace fluid. Skeletal structures: The skeletal structures are osteopenic. There is advanced lumbosacral spondylosis. No lytic or blastic lesions are seen. IMPRESSION: 1. Small bowel obstruction secondary to incarcerated small bowel loops within a large complex subumbilical hernia. 2. No thick-walled bowel loops are identified. There is no pneumatosis intestinalis, portal venous gas, or intraperitoneal free air. 3. Advanced colonic diverticulosis without CT evidence of acute diverticulitis. 4. Marked prostatomegaly with evidence of chronic bladder outlet obstruction. There is asymmetric bladder wall thickening seen anteriorly on the left. Although this may be related to chronic outlet obstruction, an underlying mucosal lesion is not excluded. Follow up with urology is recommended for further assessment. 5. Large bilateral inguinal hernias. 6. Mild cardiomegaly. 7. Additional findings as above. ACT 112: Positive. There are findings on this exam that require communication between the performing entity and the patient following Patient Test Result Information Act ([place] Act 112) guidelines. Electronically signed by: Dar Torres M.D. 11/23/2023 12:08 PM Discharge Plan Visit Data Chief Complaint: Abdominal Pain ED Provider: Pina Dang Discharge Problem: Incarcerated hernia, SBO (small bowel obstruction), Leukocytosis, Vomiting, Acute hypokalemia Forms Stand Alone Forms: [facility] [employer] Prescriptions Prescriptions: No Action atorvastatin [Lipitor] 40 mg tablet 40 mg PO HS cyanocobalamin (vitamin B-12) [Vitamin B-12] 1,000 mcg tablet 1,000 mcg PO HS Ocuvite with Lutein 1,000 unit-200 mg-60 unit-2 mg Tablet 1 tab PO QAM Systane Balance 0.6 % Drops 1 drp OPB QAM metformin 500 mg Tablet,Er Suleiman.Retention 24 Hr 500 mg PO PM meloxicam 7.5 mg tablet 7.5 mg PO QAM cholecalciferol (vitamin D3) [Vitamin D3] 25 mcg (1,000 unit) Capsule 25 mcg PO HS gabapentin 100 mg capsule See Rx Instructions .ROUTE .COMPLEX Rx Instructions: PER PT'S SPOUSE "TAKES 100 MG QAM, THEN 200 MG QHS". metoprolol succinate 50 mg Tablet Extended Release 24 Hr 50 mg PO BID Qty: 60 0RF furosemide 40 mg tablet 40 mg PO DAILY Qty: 30 0RF magnesium oxide 400 mg (241.3 mg magnesium) Tablet 400 mg PO BID Qty: 60 0RF potassium chloride 20 mEq tablet extended release 20 meq PO DAILY Qty: 30 0RF Rx Instructions: 1 tab daily to be taken with lasix. Referrals Referrals: Jerry Medrano MD [Primary Care Provider] -
[2023-11-23] MEDS: OPTIRAY 320 100ml IV ONE (11:49)
--- NOTE | 2023-11-23 12:09 | CT Scan Report ---
CT SCAN OF THE ABDOMEN AND PELVIS WITH IV CONTRAST CLINICAL HISTORY: Vomiting. COMPARISON STUDY: No priors. TECHNIQUE: Following the IV administration of 93 cc of Optiray 320, CT scan of the abdomen and pelvi s is performed from the lung bases to the proximal femora. Images are reviewed in the axial, sagittal , and coronal planes. IV contrast was administered without complication. A dose lowering technique wa s utilized adhering to the principles of ALARA. CT DOSE: 1337.02 mGy.cm FINDINGS: Lung bases: The heart is mildly enlarged and without pericardial effusion. The coronary arteries and aortic valve leaflets are densely calcified. The lung bases are clear noting bibasilar scarring/atele ctasis. There is a small hiatal hernia. Liver: The contrast-enhanced liver is normal in size, contour, and attenuation. There is no intrahepa tic biliary ductal dilatation. The hepatic veins and portal veins are patent. Gallbladder: Unremarkable. Spleen: Normal in size and attenuation. A 14 mm splenic hypodensity seen on image #87 is indeterminat e and statistically of doubtful significance. 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 Pancreas: Moderately atrophic and grossly unremarkable. 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 The left adrenal gland is no rmal in appearance. Kidneys: The contrast enhanced kidneys demonstrate cortical atrophy and are without hydronephrosis. T he kidneys enhance symmetrically. Scattered subcentimeter cortical hypodensities likely represent cys ts but are too small for definitive characterization. Abdominal vasculature: The abdominal aorta is normal in course and caliber noting advanced atheroscle rotic calcification. Bowel: There are small bowel loops contained within a large fat-containing subumbilical hernia. The s mall bowel loops above the hernia are distended and fluid-filled, measuring up to 4 cm diameter. The small bowel exiting exiting the hernia the distal small bowel is decompressed. This is consistent wit h a site of small bowel obstruction, and the transition point is seen on axial image #212. There is n o pneumatosis intestinalis or portal venous gas. No focally thick-walled bowel loops are identified. There is advanced colonic diverticulosis without CT evidence of acute diverticulitis. The appendix is not identified and reported surgically absent. Peritoneum: There is a small volume of pelvic ascites. No intraperitoneal free air is identified. The re is a large complex fat-containing supraumbilical hernia which contains bowel and trace fluid. This is seen on axial image #207. There is also a fat-containing umbilical hernia. There is an indetermin ant low-attenuation structure anterior to the right kidney seen on image #140. This measures 2.6 x 1. 8 cm, measures water density, and may represent a lymphangioma. Lymphadenopathy: None. Pelvic viscera: The prostate gland is markedly enlarged and heterogeneous. The bladder wall is thicke guillermina/trabeculated indicating chronic outlet obstruction. Bladder wall thickening is asymmetrically gre atest anteriorly on the left. This is best seen on image #297 and measures up to 1.0 cm in thickness. There are bilateral fat containing inguinal hernias, left larger than right. The left groin hernia c ontains trace fluid. Skeletal structures: The skeletal structures are osteopenic. There is advanced lumbosacral spondylosi s. No lytic or blastic lesions are seen. IMPRESSION: 1. Small bowel obstruction secondary to incarcerated small bowel loops within a large complex subumbi lical hernia. 2. No thick-walled bowel loops are identified. There is no pneumatosis intestinalis, portal venous ga s, or intraperitoneal free air. 3. Advanced colonic diverticulosis without CT evidence of acute diverticulitis. 4. Marked prostatomegaly with evidence of chronic bladder outlet obstruction. There is asymmetric yair dder wall thickening seen anteriorly on the left. Although this may be related to chronic outlet obst ruction, an underlying mucosal lesion is not excluded. Follow up with urology is recommended for furt her assessment. 5. Large bilateral inguinal hernias. 6. Mild cardiomegaly. 7. Additional findings as above. ACT 112: Positive. There are findings on this exam that require communication between the performing entity and the patient following Patient Test Result Information Act ([place] Act 112) guidelines. Electronically signed by: Dar Torres M.D. 11/23/2023 12:08 PM
--- NOTE | 2023-11-23 12:11 | Electrocardiogram Report ---
Test Reason : Blood Pressure : / mmHG Vent. Rate : 091 BPM Atrial Rate : 000 BPM P-R Int : 000 ms QRS Dur : 136 ms QT Int : 420 ms P-R-T Axes : 000 027 013 degrees QTc Int : 516 ms Sinus rhythm with frequent atrial ectopy Right bundle branch block Abnormal ECG Confirmed by Raj Mireles ([id number]) on 11/23/2023 12:10:41 PM Referred By: Confirmed By:Gianni Mireles
--- NOTE | 2023-11-23 13:09 | History & Physical Report ---
Date of Service November 23, 2023 Assessment & Plan (1) Incarcerated ventral hernia: Plan: 82-year-old gentleman with incarcerated ventral hernia. He is unable to be reduced. CT scan demonstrates bowel obstruction due to a loop of bowel contained within the hernia sac. I discussed with him the need for emergent to reduce and repair the hernia. We discussed the possibility of bowel resection if the bowel was ischemic within the hernia sac. We discussed the risks and benefits of the surgery as well as the postoperative course. All his questions were answered and he is agreeable to proceed. We will take him to the operating room as soon as possible for exploratory laparotomy, possible bowel resection, repair of ventral hernia. History of Present Illness Primary Care Provider: Jerry Medrano MD 82-year-old gentleman with a prior surgical history of an appendectomy presents with a 1-1/2-day history of abdominal pain, bloating, nausea and vomiting. He states he has had a hernia in his upper midline just above his umbilicus for many years. Yesterday became very firm and doubled in size. He has not been able to reduce it since that time. No bowel movement since yesterday. Denies fevers or chills. He was noted to be in atrial fibrillation in the emergency department, however he does not have a history of this and He does not take any anticoagulation medication. Allergies Allergy/AdvReac Type Severity Reaction Status Date / Time No Known Allergies Allergy Verified 03/02/23 17:08 Home Medications Medication Instructions Recorded Confirmed Type atorvastatin 40 mg tablet (Lipitor) 40 mg PO HS 10/08/18 08/30/23 History cyanocobalamin (vitamin B-12) 1,000 mcg PO HS 10/08/18 08/30/23 History 1,000 mcg tablet (Vitamin B-12) propylene glycol 0.6 % eye drops 1 drp OPB QAM 10/08/18 08/30/23 History (Systane Balance) vit A 300 mcg-C 200 mg-E 27 1 tab PO QAM 10/08/18 08/30/23 History mg-lutein 2 mg and minerals tablet (Ocuvite with Lutein) metformin 500 mg 24 hr 500 mg PO PM 10/11/18 08/30/23 History tablet,extended release (gastric retention) cholecalciferol (vitamin D3) 25 25 mcg PO HS 03/02/23 08/30/23 History mcg (1,000 unit) capsule (Vitamin D3) gabapentin 100 mg capsule See Rx Instructions .Route .COMPLEX 03/02/23 08/30/23 History meloxicam 7.5 mg tablet 7.5 mg PO QAM 03/02/23 08/30/23 History furosemide 40 mg tablet 40 mg PO DAILY #30 tabs 09/14/23 Rx magnesium oxide 400 mg (241.3 mg 400 mg PO BID #60 tabs 09/14/23 Rx magnesium) tablet metoprolol succinate 50 mg 50 mg PO BID #60 tabs 09/14/23 Rx tablet,extended release 24 hr potassium chloride 20 mEq 20 meq PO DAILY #30 tabs 09/14/23 Rx tablet,extended release Past Med/Surg History Medical History Symptomatic anemia Acute GI bleeding PAF (paroxysmal atrial fibrillation) Alcohol use Lumbar spinal stenosis Dyslipidemia Prediabetes HTN (hypertension) Umbilical hernia Hx of spinal stenosis Surgical History History of tonsillectomy and adenoidectomy History of appendectomy Family History Mother CHF (congestive heart failure) Social History Smoking Status: Former smoker Second Hand Exposure: No; Do You Dip or Chew Tobacco: No; Hx Alcohol Use: Yes Alcohol type: beer Alcohol Intake Frequency Comment: 6-7 beers/day Hx Substance Use: No Preferred Language: Pashto Communication Ability: Effective Assistant Surveyor Required: No Beliefs That Will Affect Care: None marital status: Current Living Situation: Spouse Feels Safe at Home: Yes Assistive Devices: Scooter/Electric Scooter Review of Systems Review of Systems: All systems reviewed & are unremarkable except as noted in HPI & below Physical Exam Constitutional: WD/WN, vitals as above Eyes: PERRL, conjunctivae normal, anicteric sclerae ENMT: external ear and nose normal, oropharynx normal Neck: trachea midline, no thyromegaly Respiratory: normal respiratory effort; no respiratory distress and no labored breathing Cardiovascular: Rate/Rhythm: regular rate and regular rhythm Gastrointestinal (Abdomen): Inspection/Auscultation: + abdomen distended ( mild) Percussion/Palpation: + abdomen tender ( umbilicus and upper midline), abdomen soft and + hernia ( firm, nonreducible upper midline just above umbilicus); no guarding and abdomen not rigid Skin: no rashes, warm and dry Psychiatric: A+Ox3, euthymic affect Results & Data Results & Data Vital Signs (Past 12 Hours) Vital Signs Temp Pulse Pulse Resp BP BP Pulse Ox 11/23/23 12:30 82 20 163/89 H 97 11/23/23 11:16 93 H 21 97 11/23/23 11:16 93 H 21 163/84 H 97 11/23/23 10:32 90 11/23/23 10:20 36.6 C 89 18 133/59 L 97 O2 Del Method 11/23/23 12:30 Room Air 11/23/23 11:16 Room Air 11/23/23 11:16 Room Air 11/23/23 10:32 11/23/23 10:20 Room Air Laboratory Results 11/23/23 11/23/23 Range/Units 10:52 10:28 WBC 14.81 H (4.8-10.8) K/ul RBC 4.49 L (4.70-6.10) M/uL Hgb 14.4 (14.0-18.0) g/dl Hct 41.3 L (42.0-52.0) % MCV 92.0 (80.0-100.0) fL MCH 32.1 (25.0-34.0) pg MCHC 34.9 (32.0-36.0) g/dL RDW Std Deviation 46.3 (36.4-46.3) fL RDW Coeff of Steven 13.6 (11.5-14.5) % Plt Count 270 (130-400) K/uL MPV 10.7 (9.4-12.4) fL Immature Gran % (Auto) 0.3 % Neut % (Auto) 84.7 % Lymph % (Auto) 8.4 % [place] % (Auto) 5.9 % Eos % (Auto) 0.4 % Baso % (Auto) 0.3 % Neut # (Auto) 12.54 H (1.40-6.50) K/uL Lymph # (Auto) 1.24 (1.20-3.40) K/uL [place] # (Auto) 0.87 H (0.11-0.59) K/uL Eos # (Auto) 0.06 (0.00-0.50) K/uL Baso # (Auto) 0.05 (0.00-0.20) K/uL Immature Gran # (Auto) 0.05 (0.01-0.20) K/uL Sodium 135 L (136-145) mmol/L Potassium 3.3 L (3.5-5.1) mmol/L Chloride 97 L (98-107) mmol/L Carbon Dioxide 27 (21-32) mmol/L Anion Gap 11 (3-11) BUN 11 (6-23) mg/dl Creatinine 0.72 (0.6-1.4) mg/dl Est Cr Clr Drug Dosing 88.8 ml/min Est GFR ( Amer) 99.3 ml/min Est GFR (Non-Af Amer) 85.7 ml/min BUN/Creatinine Ratio 15.3 (10-20) Glucose 135 H (70-99(Fasting)) mg/dl Lactate 1.7 (0.4-2.0) mmol/L Calcium 10.0 (8.6-10.3) mg/dl Total Bilirubin 1.1 H (0.2-1.0) mg/dl AST 16 (13-39) U/L ALT 14 (7-52) U/L Alkaline Phosphatase 147 H (34-104) U/L Troponin I High Sens 14.2 (0-20) pg/ml Total Protein 7.5 (6.0-8.3) gm/dl Albumin 3.8 (3.4-5.0) gm/dl Globulin 3.7 (2.5-4.0) gm/dl Albumin/Globulin Ratio 1.0 (0.9-2) Lipase 9 L (11-82) U/L Diagnostic Findings CT SCAN OF THE ABDOMEN AND PELVIS WITH IV CONTRAST CLINICAL HISTORY: Vomiting. COMPARISON STUDY: No priors. TECHNIQUE: Following the IV administration of 93 cc of Optiray 320, CT scan of the abdomen and pelvis is performed from the lung bases to the proximal femora. Images are reviewed in the axial, sagittal, and coronal planes. IV contrast was administered without complication. A dose lowering technique was utilized adhering to the principles of ALARA. CT DOSE: 1337.02 mGy.cm FINDINGS: Lung bases: The heart is mildly enlarged and without pericardial effusion. The coronary arteries and aortic valve leaflets are densely calcified. The lung bas es are clear noting bibasilar scarring/atelectasis. There is a small hiatal hernia. Liver: The contrast-enhanced liver is normal in size, contour, and attenuation. There is no intrahepatic biliary ductal dilatation. The hepatic veins and portal veins are patent. Gallbladder: Unremarkable. Spleen: Normal in size and attenuation. A 14 mm splenic hypodensity seen on image #87 is indeterminate and statistically of doubtful significance. 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 Pancreas: Moderately atrophic and grossly unremarkable. 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 The left adrenal gland is normal in appearance. Kidneys: The contrast enhanced kidneys demonstrate cortical atrophy and are without hydronephrosis. The kidneys enhance symmetrically. Scattered subcentimeter cortical hypodensities likely represent cysts but are too small for definitive characterization. Abdominal vasculature: The abdominal aorta is normal in course and caliber noting advanced atherosclerotic calcification. Bowel: There are small bowel loops contained within a large fat-containing subumbilical hernia. The small bowel loops above the hernia are distended and fluid-filled, measuring up to 4 cm diameter. The small bowel exiting exiting the hernia the distal small bowel is decompressed. This is consistent with a site of small bowel obstruction, and the transition point is seen on axial image #212. There is no pneumatosis intestinalis or portal venous gas. No focally thick- walled bowel loops are identified. There is advanced colonic diverticulosis without CT evidence of acute diverticulitis. The appendix is not identified and reported surgically absent. Peritoneum: There is a small volume of pelvic ascites. No intraperitoneal free air is identified. There is a large complex fat-containing supraumbilical hernia which contains bowel and trace fluid. This is seen on axial image #207. There is also a fat-containing umbilical hernia. There is an indeterminant low- attenuation structure anterior to the right kidney seen on image #140. This measures 2.6 x 1.8 cm, measures water density, and may represent a lymphangioma. Lymphadenopathy: None. Pelvic viscera: The prostate gland is markedly enlarged and heterogeneous. The bladder wall is thickened/trabeculated indicating chronic outlet obstruction. Bladder wall thickening is asymmetrically greatest anteriorly on the left. This is best seen on image #297 and measures up to 1.0 cm in thickness. There are bilateral fat containing inguinal hernias, left larger than right. The left groin hernia contains trace fluid. Skeletal structures: The skeletal structures are osteopenic. There is advanced lumbosacral spondylosis. No lytic or blastic lesions are seen. IMPRESSION: 1. Small bowel obstruction secondary to incarcerated small bowel loops within a large complex subumbilical hernia. 2. No thick-walled bowel loops are identified. There is no pneumatosis intestinalis, portal venous gas, or intraperitoneal free air. 3. Advanced colonic diverticulosis without CT evidence of acute diverticulitis. 4. Marked prostatomegaly with evidence of chronic bladder outlet obstruction. There is asymmetric bladder wall thickening seen anteriorly on the left. Although this may be related to chronic outlet obstruction, an underlying mucosal lesion is not excluded. Follow up with urology is recommended for further assessment. 5. Large bilateral inguinal hernias. 6. Mild cardiomegaly. 7. Additional findings as above.
--- NOTE | 2023-11-23 13:13 | Anesthesiology Consultation ---
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 Surgery Operation Date: 11/23/23 09:55 Proposed Procedures p Exploratory Laparotomy, Possible Bowel Resection, Hernia Repair - Domenic Rubalcava MD Height/Weight Height: 5 ft 10 in Weight: 95.9 kg Allergies Allergy/AdvReac Type Severity Reaction Status Date / Time No Known Allergies Allergy Verified 03/02/23 17:08 Medications Home Medications Medication Instructions Recorded Confirmed Last Taken atorvastatin 40 mg tablet (Lipitor) 40 mg PO HS 10/08/18 08/30/23 08/29/23 cyanocobalamin (vitamin B-12) 1,000 mcg PO HS 10/08/18 08/30/23 08/29/23 1,000 mcg tablet (Vitamin B-12) propylene glycol 0.6 % eye drops 1 drp OPB QAM 10/08/18 08/30/23 08/29/23 (Systane Balance) vit A 300 mcg-C 200 mg-E 27 1 tab PO QAM 10/08/18 08/30/23 08/29/23 mg-lutein 2 mg and minerals tablet (Ocuvite with Lutein) metformin 500 mg 24 hr 500 mg PO PM 10/11/18 08/30/23 08/29/23 tablet,extended release (gastric retention) cholecalciferol (vitamin D3) 25 25 mcg PO HS 03/02/23 08/30/23 08/29/23 mcg (1,000 unit) capsule (Vitamin D3) gabapentin 100 mg capsule See Rx Instructions .Route .COMPLEX 03/02/23 08/30/23 08/29/23 meloxicam 7.5 mg tablet 7.5 mg PO QAM 03/02/23 08/30/23 08/29/23 furosemide 40 mg tablet 40 mg PO DAILY #30 tabs 09/14/23 Unknown magnesium oxide 400 mg (241.3 mg 400 mg PO BID #60 tabs 09/14/23 Unknown magnesium) tablet metoprolol succinate 50 mg 50 mg PO BID #60 tabs 09/14/23 Unknown tablet,extended release 24 hr potassium chloride 20 mEq 20 meq PO DAILY #30 tabs 09/14/23 Unknown tablet,extended release Past Medical History Medical History Symptomatic anemia Acute GI bleeding PAF (paroxysmal atrial fibrillation) Alcohol use Lumbar spinal stenosis Dyslipidemia Prediabetes HTN (hypertension) Umbilical hernia Hx of spinal stenosis Past Family History Family History Mother CHF (congestive heart failure) Past Surgical History Surgical History History of tonsillectomy and adenoidectomy History of appendectomy Social History Smoking Status: Former smoker Do You Dip or Chew Tobacco: No Hx Alcohol Use: Yes Alcohol type: beer alcohol intake frequency: a few times a month Hx Substance Use: No Physical Exam Vital Signs Last Vital Signs Temp 97.9 F 11/23/23 10:20 Pulse 82 11/23/23 12:30 Resp 20 11/23/23 12:30 BP 163/89 H 11/23/23 12:30 Pulse Ox 97 11/23/23 12:30 O2 Del Method Room Air 11/23/23 12:30 Testing Laboratory Results 11/23/23 10:28 11/23/23 10:28 Electrocardiogram Date: 11/23/23 Sinus rhythm with frequent atrial ectopy, rate 91 bpm Right bundle branch block Abnormal ECG Confirmed by Raj Mireles ([id number]) on 11/23/2023 12:10:41 PM
[2023-11-23] MEDS ORDERED: DEXAMETHASONE SOD INJ 4 MG/ML VIAL ONE (13:15)
[2023-11-23] MEDS ORDERED: PROPOFOL IV EMULSION 10 MG/ML 20 ML VIAL IV ONE (13:15)
[2023-11-23] MEDS ORDERED: LIDOCAINE 2% 2 ML VIAL/AMP(20MG/ML) INFIL ONE (13:15)
[2023-11-23] MEDS ORDERED: ONDANSETRON INJ 2 MG/ML 2 ML VIAL ONE ×2 (13:15→14:18)
[2023-11-23] MEDS ORDERED: ROCURONIUM BROMIDE 10 MG/ML 5 ML VIAL IV ONE ×2 (13:15→14:59)
[2023-11-23] MEDS ORDERED: fentaNYL citrate PF 100 MCG/2 ML VIAL ONE (13:16)
--- NOTE | 2023-11-23 13:39 | History & Physical Report ---
Date of Service November 23, 2023 Assessment & Plan (1) SBO (small bowel obstruction): (2) Incarcerated ventral hernia: Plan: Patient is 82 year old male with PMH HTN, dyslipidemia, paroxysmal atrial fibrillation not on anticoagulation, prediabetes, history of SIADH, former alcohol use presented to ER with complaint of abdominal pain x 1 day. In ER T: 36.6 C, P: 89, R: 18, BP 133/59, 97% on room air WBC: 14.8. Lactate: 1.7 CT ABD/PELVIS: Small bowel obstruction secondary to incarcerated small bowel loops within a large complex subumbilical hernia. No thick-walled bowel loops are identified. There is no pneumatosis intestinalis, portal venous gas, or intraperitoneal free air. NPO General surgery consult. Saw in ER and plan to take patient to OR now for exploratory laparotomy, possible bowel resection and hernia Repair Would plan for gentle IVF, antiemetics and pain medications as needed CBC, CMP in am (3) Acute hypokalemia: Plan: K: 3.3. magnesium: 1.9 Replace and monitor (4) Abnormal computed tomography of abdomen and pelvis: Plan: CT ABD/PELVIS: Marked prostatomegaly with evidence of chronic bladder outlet obstruction. There is asymmetric bladder wall thickening seen anteriorly on the left. Although this may be related to chronic outlet obstruction, an underlying mucosal lesion is not excluded. Follow up with urology is recommended for further assessment. UA unremarkable Urology follow up will be needed (5) HTN (hypertension): Plan: Currently stable Convert home metoprolol succinate to IV metoprolol tartrate while n.p.o. Holding Lasix (6) Dyslipidemia: Plan: Would plan to resume atorvastatin when able to have oral intake (7) Prediabetes: Plan: A1c: 5.3 on 08/31/2023 Hold home metformin NovoLog sliding scale correction only for now as is n.p.o. (8) PAF (paroxysmal atrial fibrillation): Plan: Not on anticoagulation Monitor on telemetry Convert home metoprolol succinate to IV metoprolol tartrate while n.p.o. (9) Leg edema: Plan: History of chronic BLE edema On Lasix Currently appears euvolemic Hold Lasix and reassess tomorrow (10) Hyponatremia: (11) History of SIADH: Plan: Na: 135. Was 137 on 10/17/2023 Monitor BMP DVT Prophylaxis SCDs for now as undergoing surgery Full Code as per discussion with patient Follows with Dr Medrano for routine care Pt was seen and care coordinated with Dr Payton. See addendum I spent a total of 75 minutes reviewing notes, outpatient records, labs, medication, coordinating, documenting and providing care for this patient excluding time spent in the performance of separately billed services. History of Present Illness Chief Complaint: Abdominal pain Primary Care Provider: Jerry Medrano MD Patient is 82 year old male with PMH HTN, dyslipidemia, paroxysmal atrial fibrillation not on anticoagulation, prediabetes, history of SIADH, former alcohol use presented to ER with complaint of abdominal pain x 1 day. History obtained from patient, patient's , inpatient and outpatient chart review. Reports mid abdominal pain over site of hernia x 1 day. States history chronic ventral abdominal hernia however noted became larger yesterday and states is not soft like it used to be. Today firm and hasn't been able to self reduce it. Last BM yesterday. Limited to no flatus today per patient. Also c/o nausea and vomiting since yesterday. Denies any known fever or chills. States hasn't had ETOH since 08/2023. Currently residing in personal half-way at [facility]. Denies hematemesis, melena, hematochezia, SLADE, dizziness, syncope, vision changes, neck pain, CP, SOB, palpitations, cough, rhinorrhea, increased weakness, increased extremity edema, rashes, urinary symptoms. In ER CT abd/pelvis with small bowel obstruction secondary to incarcerated small bowel loops within a large complex subumbilical hernia. Patient taken to OR for urgent surgery. Allergies Allergy/AdvReac Type Severity Reaction Status Date / Time No Known Allergies Allergy Verified 11/23/23 13:36 Home Medications Medication Instructions Recorded Confirmed Type atorvastatin 40 mg tablet (Lipitor) 40 mg PO DAILY 10/08/18 11/23/23 History cyanocobalamin (vitamin B-12) 1,000 mcg PO DAILY 10/08/18 11/23/23 History 1,000 mcg tablet (Vitamin B-12) propylene glycol 0.6 % eye drops 1 drp OPB QAM 10/08/18 11/23/23 History (Systane Balance) vit A 300 mcg-C 200 mg-E 27 1 tab PO QAM 10/08/18 11/23/23 History mg-lutein 2 mg and minerals tablet (Ocuvite with Lutein) metformin 500 mg 24 hr 500 mg PO PM 10/11/18 11/23/23 History tablet,extended release (gastric retention) cholecalciferol (vitamin D3) 25 25 mcg PO DAILY 03/02/23 11/23/23 History mcg (1,000 unit) capsule (Vitamin D3) gabapentin 100 mg capsule 100 mg PO DAILY 03/02/23 11/23/23 History magnesium oxide 400 mg (241.3 mg 400 mg PO BID #60 tabs 09/14/23 11/23/23 Rx magnesium) tablet metoprolol succinate 50 mg 50 mg PO BID #60 tabs 09/14/23 11/23/23 Rx tablet,extended release 24 hr potassium chloride 20 mEq 20 meq PO DAILY #30 tabs 09/14/23 11/23/23 Rx tablet,extended release docusate sodium 50 mg capsule 50 mg PO DAILY 11/23/23 11/23/23 History furosemide 40 mg tablet 40 mg PO BID 11/23/23 11/23/23 History gabapentin 100 mg capsule 200 mg PO HS 11/23/23 11/23/23 History Past Med/Surg History Medical History (Updated 11/23/23 @ 14:12 by Katie Larry PA-C) History of SIADH Leg edema Symptomatic anemia Acute GI bleeding PAF (paroxysmal atrial fibrillation) Alcohol use Lumbar spinal stenosis Dyslipidemia Prediabetes HTN (hypertension) Umbilical hernia Hx of spinal stenosis Surgical History History of tonsillectomy and adenoidectomy History of appendectomy Family History Mother CHF (congestive heart failure) Social History Smoking Status: Former smoker Second Hand Exposure: No; Do You Dip or Chew Tobacco: No; Hx Alcohol Use: No Hx Substance Use: No Preferred Language: Monegasque Communication Ability: Effective Hand Buffer Required: No Beliefs That Will Affect Care: None marital status: Current Living Situation: Spouse Other Information That Helps Us Care for You: No Feels Safe at Home: Yes Safety Concerns: Feels Safe At This Time Assistive Devices: Denture - Upper, Glasses and Scooter/Electric Scooter Review of Systems Review of Systems: All systems reviewed & are unremarkable except as noted in HPI & below Physical Exam Physical Exam: General: no acute distress, overweight elderly male Head: normocephalic, atraumatic Eyes: conjunctiva non-injected, anicteric ENT: normal inspection external ears, nose, mucous membranes moist Neck: supple, trachea midline Lungs: clear, no respiratory distress, no wheezing/rhonchi/rales CV: RRR, + murmur, 1+ pretibial edema Abd: protuberant, hypoactive BS, +large ventral hernia is tender to palpation and nonreducible, otherwise abdomen is non-tender Ext: no cyanosis, no erythema, no calf tenderness Neuro: A&O x 3, no focal deficits noted, normal affect Skin: warm, dry Results & Data Results & Data Vital Signs (Past 12 Hours) Vital Signs Temp Pulse Pulse Resp BP BP Pulse Ox 11/23/23 13:23 11/23/23 12:30 82 20 163/89 H 97 11/23/23 11:16 93 H 21 97 11/23/23 11:16 93 H 21 163/84 H 97 11/23/23 10:32 90 11/23/23 10:20 36.6 C 89 18 133/59 L 97 O2 Del Method 11/23/23 13:23 Room Air 11/23/23 12:30 Room Air 11/23/23 11:16 Room Air 11/23/23 11:16 Room Air 11/23/23 10:32 11/23/23 10:20 Room Air Laboratory Results Short CBC 11/23/23 Range/Units 10:28 WBC 14.81 H (4.8-10.8) K/ul Hgb 14.4 (14.0-18.0) g/dl Hct 41.3 L (42.0-52.0) % Plt Count 270 (130-400) K/uL BMP 11/23/23 10:28 Sodium 135 L Potassium 3.3 L Chloride 97 L Carbon Dioxide 27 BUN 11 Creatinine 0.72 Glucose 135 H Calcium 10.0 Liver Function 11/23/23 Range/Units 10:28 Total Bilirubin 1.1 H (0.2-1.0) mg/dl AST 16 (13-39) U/L ALT 14 (7-52) U/L Alkaline Phosphatase 147 H (34-104) U/L Albumin 3.8 (3.4-5.0) gm/dl Urine 11/23/23 Range/Units Unknown Urine Color Yellow Urine Appearance Clear (Clear) Urine pH 8.5 H (4.5-7.5) Ur Specific [place] > 1.045 H (1.000-1.030) Urine Protein 1+ H (Negative) Urine Glucose (UA) Negative (Negative) Diagnostic Findings Abdomen/Pelvis CT 11/23/23 11:23 CT SCAN OF THE ABDOMEN AND PELVIS WITH IV CONTRAST CLINICAL HISTORY: Vomiting. COMPARISON STUDY: No priors. TECHNIQUE: Following the IV administration of 93 cc of Optiray 320, CT scan of the abdomen and pelvis is performed from the lung bases to the proximal femora. Images are reviewed in the axial, sagittal, and coronal planes. IV contrast was administered without complication. A dose lowering technique was utilized adhering to the principles of ALARA. CT DOSE: 1337.02 mGy.cm FINDINGS: Lung bases: The heart is mildly enlarged and without pericardial effusion. The coronary arteries and aortic valve leaflets are densely calcified. The lung bases are clear noting bibasilar scarring/atelectasis. There is a small hiatal hernia. Liver: The contrast-enhanced liver is normal in size, contour, and attenuation. There is no intrahepatic biliary ductal dilatation. The hepatic veins and portal veins are patent. Gallbladder: Unremarkable. Spleen: Normal in size and attenuation. A 14 mm splenic hypodensity seen on image #87 is indeterminate and statistically of doubtful significance. 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 Pancreas: Moderately atrophic and grossly unremarkable. 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 The left adrenal gland is normal in appearance. Kidneys: The contrast enhanced kidneys demonstrate cortical atrophy and are without hydronephrosis. The kidneys enhance symmetrically. Scattered subcentimeter cortical hypodensities likely represent cysts but are too small for definitive characterization. Abdominal vasculature: The abdominal aorta is normal in course and caliber noting advanced atherosclerotic calcification. Bowel: There are small bowel loops contained within a large fat-containing subumbilical hernia. The small bowel loops above the hernia are distended and fluid-filled, measuring up to 4 cm diameter. The small bowel exiting exiting the hernia the distal small bowel is decompressed. This is consistent with a site of small bowel obstruction, and the transition point is seen on axial image #212. There is no pneumatosis intestinalis or portal venous gas. No focally thick- walled bowel loops are identified. There is advanced colonic diverticulosis without CT evidence of acute diverticulitis. The appendix is not identified and reported surgically absent. Peritoneum: There is a small volume of pelvic ascites. No intraperitoneal free air is identified. There is a large complex fat-containing supraumbilical hernia which contains bowel and trace fluid. This is seen on axial image #207. There is also a fat-containing umbilical hernia. There is an indeterminant low- attenuation structure anterior to the right kidney seen on image #140. This measures 2.6 x 1.8 cm, measures water density, and may represent a lymphangioma. Lymphadenopathy: None. Pelvic viscera: The prostate gland is markedly enlarged and heterogeneous. The bladder wall is thickened/trabeculated indicating chronic outlet obstruction. Bladder wall thickening is asymmetrically greatest anteriorly on the left. This is best seen on image #297 and measures up to 1.0 cm in thickness. There are bilateral fat containing inguinal hernias, left larger than right. The left groin hernia contains trace fluid. Skeletal structures: The skeletal structures are osteopenic. There is advanced lumbosacral spondylosis. No lytic or blastic lesions are seen. IMPRESSION: 1. Small bowel obstruction secondary to incarcerated small bowel loops within a large complex subumbilical hernia. 2. No thick-walled bowel loops are identified. There is no pneumatosis intestinalis, portal venous gas, or intraperitoneal free air. 3. Advanced colonic diverticulosis without CT evidence of acute diverticulitis. 4. Marked prostatomegaly with evidence of chronic bladder outlet obstruction. There is asymmetric bladder wall thickening seen anteriorly on the left. Although this may be related to chronic outlet obstruction, an underlying mucosal lesion is not excluded. Follow up with urology is recommended for further assessment. 5. Large bilateral inguinal hernias. 6. Mild cardiomegaly. 7. Additional findings as above. ACT 112: Positive. There are findings on this exam that require communication between the performing entity and the patient following Patient Test Result Info rmation Act ([place] Act 112) guidelines. Electronically signed by: Dar Torres M.D. 11/23/2023 12:08 PM ECG Additional Comments: EKG: sinus rhythm, frequent atrial ectopy, rate 91, RBBB Code Status & VTE Plan VTE Prophylaxis Plan VTE Prophylaxis will be ordered: Yes Supervising Physician Co-Signing Physician Notes I have seen and examined the patient and have discussed the case with the provider above. I have reviewed the advanced practitioner's documentation, and I agree with, and take responsibility for that plan of care. 82-year-old man presents with acute abdominal pain secondary to incarcerated small bowel. He was taken immediately to the OR and is recovering in the PACU. Postoperatively he has an abdominal binder and a drain in place he is hemodynamically stable and afebrile and oxygenating well on room air. He is mentating clearly and reports no pain. Bowel resection was performed with hernia repair by Dr. Rubalcava today. Continue n.p.o. status with diet advancement only per general surgery. Will check and replace electrolytes as needed and continue IV fluids for hydration. Consult nutrition for additional assistance and monitoring. Agree with conservative insulin management for mild diabetes. Continue supportive care postoperatively. DO Fito (5) HTN (hypertension) Hypertension type: essential hypertension Qualified Code(s): I10 - Essential (primary) hypertension
[2023-11-23 13:43] LABS: Appearance Urine Clear (Clear); Bacteria Urine Automated Negative (Negative); Bilirubin Urine Negative (Negative); Blood Urine Negative (Negative); Color Urine Yellow; Glucose Urine UA Negative (Negative); Ketones Urine 1+ (Negative); Leukocyte Esterase Urine Negative (Negative); Nitrite Urine Negative (Negative); RBC Urine Automated 0-4 /hpf (0-4); Specific Gravity Urine > 1.045 (1.000-1.030); Urobilinogen Urine Negative (Negative); pH Urine 8.5 (4.5-7.5)
[2023-11-23] MEDS: LACTATED RINGER'S 1,000 ML IV SCH (13:45)
[2023-11-23 13:46] LABS: Protein Urine 1+ (Negative)
[2023-11-23] MEDS ORDERED: ATROPINE SULFATE 0.1 MG/ML 10ML SYR IV PRN (13:46)
[2023-11-23] MEDS ORDERED: ONDANSETRON INJ 2 MG/ML 2 ML VIAL IV PRN (13:46)
[2023-11-23] MEDS ORDERED: ePHEDrine sulfate 50 MG/ML AMP IV PRN (13:46)
[2023-11-23] MEDS: ceFAZolin 2000MG 2,000 MG/15 ML SYR IV ONE (14:00)
[2023-11-23] MEDS ORDERED: SUGAMMADEX SODIUM 200 MG/2 ML VIAL IV ONE (14:18)
[2023-11-23] MEDS ORDERED: SUCCINYLCHOLINE 100MG/5ML SYR IV ONE (14:18)
[2023-11-23 14:28] LABS: Magnesium 1.9 mg/dl (1.7-2.4)
[2023-11-23] MEDS ORDERED: SODIUM CHLORIDE 0.9% PF INJ 10 ML VIAL ONE (14:36)
[2023-11-23] MEDS ORDERED: HYDROmorphone INJ 2 MG/ML SYR/VIAL ONE (14:36)
[2023-11-23] MEDS ORDERED: LABETALOL HCL IV 5 MG/ML 20ML IV ONE (15:13)
--- NOTE | 2023-11-23 16:07 | Post Operative Brief Note ---
Immediate Post Op Note v1 Date of Surgery November 23, 2023 Pre & Post Diagnosis Operation Date: 11/23/23 09:55 Pre-Op Diagnosis: ILLNESS Post-Op Diagnosis: ILLNESS I identified the patient and participated in the time-out.: Yes Procedure Operation Date: 11/23/23 09:55 Actual Procedures p Exploratory Laparotomy, small Bowel Resection, Hernia Repair(Not Applicable) - Domenic Rubalcava MD Surgeon Domenic Rubalcava MD Deep Well Contractor JAYLEN Salcedo assisted with tissue retraction, camera op, closure Estimated Blood Loss 15 Findings Consistent with Post-Op Diagnosis Drains Hernández Catheter (16 fr, placed by Rosalinda Mina RN at 1420) and Omar-Lau Drain
--- NOTE | 2023-11-23 16:17 | Operative Report ---
Post Operative Report Pre & Post Diagnosis Operation Date: 11/23/23 09:55 Pre-Op Diagnosis: ILLNESS Post-Op Diagnosis: ILLNESS I identified the patient and participated in the time-out.: Yes Procedure Operation Date: 11/23/23 09:55 Actual Procedures p Exploratory Laparotomy, small Bowel Resection, Hernia Repair(Not Applicable) - Domenic Rubalcava MD Surgeon Domenic Rubalcava MD Metal Neutralizer JAYLEN Salcedo assisted with tissue retraction, camera op, closure Estimated Blood Loss 15 Findings Consistent with Post-Op Diagnosis incarcerated ventral hernia containing infarcted omentum as well as ischemic bowel. Meckel's diverticulum approximately 3 inches away from the ischemic portion of bowel. Bowel resection to include Meckel's and ischemic portion of bowel. Specimens Hernia sac and contents; infarcted omentum; small bowel with Meckel's diverticulum Drains 15 Romanian round HOLLIE Anesthesia Type General Complications no immediate complications Description of Procedure patient was taken to the operating room, placed supine on the operating table. A timeout was performed, perioperative antibiotics were administered, SCD boots were placed. After adequate anesthesia and analgesia was obtained, a Hernández catheter was placed, and the area was prepped and draped in the normal sterile fashion. Midline incision was made overlying the incarcerated hernia and was carried into the subcutaneous tissue with 15 blade scalpel. Further blunt dissection as well as judicious use of the cautery was used to delineate the hernia sac down to its exit from the fascia. The fascia was opened above the level of the hernia, and we slowly worked our way down to the hernia with the Metzenbaum scissors. Once the hernia was released, we worked our way around to the 306 degree fashion to release the hernia sac from the fascia. We encountered some ischemic and infarcted omentum in this location. This was freed from the hernia sac. There did not appear to be bowel within the hernia. Once all the omentum was freed from the hernia sac, the hernia sac was excised from the fascial defect. The fascia was then opened further, exposing a small umbilical hernia containing fat. We excised attenuated fascia to coalesce this into the other hernia. At this point, we inspected the abdominal contents. The omentum was flipped back, exposing the small bowel. We noted an area of ischemic bowel which corresponded to the loop that had been seen in the hernia sac on CT scan. There appeared to be an obstruction point at this location. Approximately 3 inches proximal to this ischemic area was a Meckel's diverticulum. The obstruction appeared to be backing up into the Meckel's. Given the ischemic portion of bowel as well as the Meckel's, the decision was made to resect this area of bowel. Sites were selected proximally and distally and were transected with the ABBY stapler. The mesentery was taken with the LigaSure device. A [id number] functional end-to-end anastomosis was created with the ABBY stapler between the 2 ends of small bowel. The common channel was closed with a TA stapler. The mesenteric defect was closed with 3-0 Vicryl. A stitch was placed at the base of 3-0 silk. Attention was turned to hemostasis, which was excellent. The abdomen was copiously irrigated and suctioned free and hemostasis was again excellent. We changed our gloves. We turned our attention to the omentum. The infarcted portion was removed with the LigaSure device. The omentum was replaced back into the abdominal cavity. Attenuated fascia was excised. The fascia was cl osed with interrupted [id number] Prolene sutures. A 15 Romanian HOLLIE drain was placed through a separate stab incision into the prior hernia cavity. The umbilical stalk was reattached with 3-0 Vicryl. Skin was closed with surgical clips. Dressings were applied. He tolerated the procedure without complication, was transferred in stable condition to the PACU. All instrument, needle, and sponge counts were correct at the end of the case. My wet process assistant head miller was necessary throughout the procedure for tissue retraction, possible camera operation, and closure of the wounds. I understand that section 1842(b)(7)(D) of the Social Security act generally prohibits Medicare physician fee schedule payment for the services of assistants at surgery in teaching hospitals when qualified residents are available to furnish such services. I certify that the services for which payment is claimed were medically necessary and that no qualified resident was available to perform the services. I further understand that these services are subject to postpayment review by the Medicare carrier. I attest to the content of the Intraoperative Record and any orders documented therein. Any exceptions are noted below.
[2023-11-23] MEDS: cefOXitin SOD 1,000 MG VIAL ONE (16:20)
[2023-11-23] MEDS: fentaNYL citrate PF 100 MCG/2 ML VIAL IV PRN (16:25)
--- NOTE | 2023-11-23 17:48 | Anesthesiology Progress Note ---
Date of Service November 23, 2023 Anesthesia Post Procedure Vital Signs Vital Signs: Temp Pulse Pulse Pulse Resp BP BP 11/23/23 17:28 36.5 C 76 20 168/90 H 11/23/23 17:05 36.4 C L 70 18 163/85 H 11/23/23 16:55 68 22 164/78 H 11/23/23 16:45 72 24 166/83 H 11/23/23 16:35 74 20 179/75 H 11/23/23 16:25 73 20 166/110 H 11/23/23 16:15 36.5 C 73 18 172/88 H 11/23/23 13:30 36.4 C L 97 H 20 173/84 H 11/23/23 13:23 11/23/23 12:30 82 20 163/89 H 11/23/23 11:16 93 H 21 11/23/23 11:16 93 H 21 163/84 H 11/23/23 10:32 90 11/23/23 10:20 36.6 C 89 18 133/59 L Pulse Ox O2 Del Method O2 Flow Rate 11/23/23 17:28 96 Nasal Cannula 2 11/23/23 17:05 94 Nasal Cannula 3 11/23/23 16:55 95 Nasal Cannula 3 11/23/23 16:45 96 Nasal Cannula 2 11/23/23 16:35 94 Nasal Cannula 2 11/23/23 16:25 98 Oxymask 4 11/23/23 16:15 100 Oxymask 8 11/23/23 13:30 100 Room Air 11/23/23 13:23 Room Air 11/23/23 12:30 97 Room Air 11/23/23 11:16 97 Room Air 11/23/23 11:16 97 Room Air 11/23/23 10:32 11/23/23 10:20 97 Room Air Pain Intensity Abdomen: Pain Intensity: 5 Transfer of Care Handoff Completed per policy Notes Mental Status: alert / awake / arousable Patient Amnestic to Procedure: Yes Nausea / Vomiting: adequately controlled Pain: adequately controlled Airway Patency, RR, SpO2: stable & adequate BP & HR: stable & adequate Hydration State: stable & adequate Anesthetic Complications: no major complications apparent and Pt Satisfied with anesthetic care
[2023-11-23] MEDS ORDERED: CARBOHYDRATES FOR HYPOGLYCEMIA PO PRN (18:26)
[2023-11-23] MEDS ORDERED: DEXTROSE 50% 50 ML SYRINGE IV PRN (18:26)
[2023-11-23] MEDS ORDERED: GLUCAGON FOR INJ 1 MG VIAL SQ PRN (18:26)
[2023-11-23] MEDS ORDERED: GLUCOSE 10 TAB/TUBE PO PRN (18:26)
[2023-11-23] MEDS ORDERED: GLUCOSE 40% GEL 15 GM TUBE PO PRN (18:26)
[2023-11-23] MEDS ORDERED: KETOROLAC TROMETHAMINE 15 MG/ML VIAL IV PRN (18:26)
[2023-11-23] MEDS: SODIUM CHLORIDE 0.9% 1,000 ML IV SCH (18:42)
[2023-11-23] MEDS ORDERED: Nursing to Pharmacy Communication SCH (19:45)
[2023-11-23] MEDS: METOPROLOL TARTRATE 1 MG/ML VIAL IV SCH (20:17)
[2023-11-23] MEDS: POTASSIUM CHLORIDE / WTR 10 MEQ/100 ML PLCT IV SCH (20:18)
[2023-11-23] MEDS ORDERED: INSULIN ASPART PER UNIT CHARGE SC SCH (21:00)
[2023-11-23] MEDS: INSULIN ASPART PER UNIT CHARGE SC SCH (23:35)
--- OUTSIDE RECORDS SUMMARY | 2023-11-23 23:39 | External Medical Summary | Summary of Care ---
Author Name Unknown Organization [facility] Address [address] [place] [address] Phone [phone] Care Team Providers Care Tombstone Polisher Name Role Phone Mitchell ROMAN MD, Rao Cerda Primary Care Provider [phone] Reason for Visit * Reason Onset Date Comments Advice 11/12/2023 Encounter Details Date Type Department Care Team (Late st Contact Info) Description 11/12/2023 Telephone Family Practice [facility] [address] [place] [address] Rao Cain III, MD [address] [place] [address] Advice Allergies No known active allergiesdocumented as of this encounter (statuses as of 11/17/2023) Medications Medication Sig Dispensed Refills Start Date End Date Status Propylene Glycol 0.6 % Ophthalmic Solution Instill 1 Drop into both eyes in the morning. 0 Active Acetaminophen 500 MG Oral Tablet Take 1 Tablet by mouth every 6 hours as needed for Pain. 0 Active [facility] Vitamin B-12 1000 MCG Oral Tablet (vitamin b 12) TAKE 1 TABLET BY MOUTH EVERY DAY 100 Tablet 3 05/28/2023 Active Additional Information Patient not taking.Reported on 10/17/2023 Atorvastatin Calcium 40 MG Oral Tablet (Lipitor)Indicatio ns:Dyslipidemia, goal to be determined Take 1 Tablet by mouth in the morning. 30 Tablet 0 10/04/2023 Active Gabapentin 100 MG Oral Capsule (Neurontin)Indicat ions:Spinal stenosis of lumbar region, unspecified whether neurogenic claudication present Takes by mouth twice daily - 100 mg in AM and 200 mg at bedtime 90 Capsule 0 10/04/2023 Active metFORMIN HCl 500 MG Oral Tablet (Glucophage)Indica tions:Prediabetes Take 1 Tablet by mouth every afternoon. With supper. 30 Tablet 0 10/04/2023 Active Ocuvite-Lutein Oral Tablet Take 1 Tablet by mouth in the morning. 30 Tablet 0 10/04/2023 Active Vitamin D-3 25 MCG (1000 UT) Oral Capsule Take 1 Capsule by mouth in the morning. 30 Capsule 0 10/04/2023 Active Docusate Sodium 50 MG Oral Capsule Take by mouth 2 times a day. 0 Active Metoprolol Succinate ER 50 MG Oral Tablet Extended Release 24 Hour (Toprol XL)Indications:HTN , goal below 150/90 Take 1 Tablet by mouth in the morning and 1 Tablet before bedtime. 180 Tablet 1 11/12/2023 Active Potassium Chloride ER 20 MEQ Oral Tablet Extended Release Take 1 Tablet by mouth in the morning. 30 Tablet 5 11/13/2023 Active Magnesium Oxide 400 MG Oral Tablet Take 1 Tablet by mouth in the morning and 1 Tablet before bedtime. 60 Tablet 5 11/13/2023 Active Furosemide 40 MG Oral Tablet (Lasix)Indications :Hyponatremia TAKE 1 TABLET BY MOUTH IN MORNING AND AT NOON CHF 60 Tablet 0 11/17/2023 Active Magnesium Oxide 400 MG Oral Tablet Take 1 Tablet by mouth in the morning and 1 Tablet before bedtime. 60 Tablet 0 10/04/2023 4 Discontinue d(Refill) Potassium Chloride ER 20 MEQ Oral Tablet Extended Release Take 1 Tablet by mouth in the morning. 30 Tablet 0 10/04/2023 4 Discontinue d(Refill) Furosemide 40 MG Oral Tablet (Lasix)Indications :Hyponatremia TAKE 1 TABLET BY MOUTH IN MORNING AND AT NOON CHF 60 Tablet 0 11/07/2023 4 Discontinue d(Refill) Metoprolol Succinate ER 50 MG Oral Tablet Extended Release 24 Hour (Toprol XL)Indications:HTN , goal below 150/90 Take 1 Tablet by mouth in the morning and 1 Tablet before bedtime. 60 Tablet 0 11/08/2023 4 Discontinue d(Refill) documented as of this encounter (statuses as of 11/17/2023) Active Problems Problem Noted Date Diagnosed Date Hyponatremia 09/20/2023 SIADH (syndrome of inappropriate ADH production) 09/20/2023 Alcohol use 09/20/2023 Esophageal obstruction 09/15/2019 PAF (paroxysmal atrial fibrillation) 08/14/2019 Dyslipidemia 07/17/2018 Lumbar spinal stenosis 09/01/2013 ADVANCE DIRECTIVE INFORMATION 01/06/2005 Overview: No, Advance Directive brochure offered , patient declined. HTN, goal below 140/90 documented as of this encounter (statuses as of 11/17/2023) Resolved Problems Problem Noted Date Diagnosed Date Resolved Date Prediabetes 07/17/2022 10/18/2023 Overview: Per Prediabetes protocol Obesity, morbid (more than 1 00 lbs over ideal weight or BMI > 40) 12/29/2020 09/20/2023 Anxiety state 09/15/2019 09/15/2019 Morbid obesity with [...] as of this encounter (statuses as of 11/17/2023) Immunizations Name Administration Dates Next Due COVID-19 mRNA, LNP-s, No Pre serve, 2-Dose Series ([employer]) 11/03/2020,10/13/2020 Influenza, Whole Virus 07/04/1999,1997,06/03/1997,06/03 PPD 03/21/2023 Pneumococcal Conjugate Vacc, 13 Valent (Prevnar) 01/27/2015 Pneumococcal Polysaccharide PPV23 (Pneumovax) 02/09/2017,07/21/2003 Seasonal Influenza, PF, 6 M & above, IM , (FluLaval or Fluzone) 05/18/2020,06/03/2018,05/24/2017 Seasonal Influenza, Quadriva lent Hd (Fluzone [...] Date Smoking Tobacco: Former Cigarettes 0.5 10 0 09/12/1964 - 09/12/1974 Smokeless Tobacco: Never Alcohol Use Standard [...] encounter Miscellaneous Notes * Addendum Note - Mitchellsneha ROMAN, Rao Cerda MD - 11/17/2023 11:05 AM EDTAddended by: RAO CAIN on: 11/17/2023 11:05 AM Modules accepted: Orders * Addendum Note - Deepak Michaels LPN - 11/16/2023 4:39 PM EDTAddended by: DEEPAK MICHAELS on: 11/16/2023 04:39 PM Modules accepted: Orders * Telephone Encounter - Deepak Michaels LPN - 11/16/2023 4:33 PM EDT Patient's is calling in stating that patient needs a refill on his Lasix's. Pended medication for approval. * Telephone Encounter - Rao Cain III, MD - 11/16/2023 8:56 AM EDT Since he has been on this current dose of Lasix for several months would just recheck renal panel in about 2 more months * Telephone Encounter - Kira Holm LPN - 11/15/2023 3:29 PM EDT Patient's EC Xiomy is aware and verbalized understanding, will comply. Reports that the the pt had a renal function panel done 10/17/23. Pt is taking Lasix one tablet twice a day for a couple of months now. States that the pt is hard to move and is currently residing in [facility]. Is asking if another renal function panel is needed? Please advise. * Telephone Encounter - Aliza Gaines LPN - 11/15/2023 3:01 PM EDT Left message for pt to call back. * Telephone Encounter - Rao Cain III, MD - 11/15/2023 10:25 AM EDT Check renal panel see what kidney function sodium are- med list is saying Lasix 1 tablet twice a day is what he is currently doing * Telephone Encounter - Aliza Gaines LPN - 11/15/2023 9:23 AM EDT Please see original message regarding Lasix script * Addendum Note - Rao Cain III, MD - 11/13/2023 10:44 AM EDTAddended by: RAO CAIN on: 11/13/2023 10:44 AM Modules accepted: Orders * Addendum Note - Alisha Stratton LPN - 11/13/2023 9:07 AM EDTAddended by: ALISHA STRATTON on: 11/13/2023 09:07 AM Modules accepted: Orders * Telephone Encounter - Alisha Stratton LPN - 11/13/2023 8:59 AM EDT Patient's is calling. Has not heard back about the lasix. Did receive the metoprolol. [facility] told her he also needs magnesium and potassium. Asking if Dr. Cain wants to keep him on these? If he does, asking it be sent to [facility] Pending Prescriptions: Disp Refills Potassium Chloride ER 20 MEQ Oral Tablet *30 Tab*5 Sig: Take 1 Tablet by mouth in the morning. Magnesium Oxide 400 MG Oral Tablet 60 Tab*5 Sig: Take 1 Tablet by mouth in the morning and 1 Tablet before bedtime. Signed Prescriptions: Disp Refills Metoprolol Succinate ER 50 MG Oral Tablet *180 Ta*1 Sig: Take 1 Tablet by mouth in the morning and 1 Tablet before bedtime. Authorizing Provider: RAO CAIN III Last Visit: 07/18/2023 (in office), 12/06/2022 (telemedicine) Next Visit: 12/06/2023 Last date the medication was ordered: 11/07/23 Patient Active Problem List Diagnosis Code HTN, goal below 140/90 I10 ADVANCE DIRECTIVE INFORMATION Lumbar spinal stenosis M48.061 Dyslipidemia E78.5 PAF (paroxysmal atrial fibrillation) ([facility]) I48.0 Esophageal obstruction K22.2 Hyponatremia E87.1 SIADH (syndrome of inappropriate ADH production) ([facility]) E22.2 Alcohol use Z78.9 Labs: Lab Results Component Value Date/Time CREATININE - [facility] 0.8 10/17/2023 02:02 PM CREATININE - [facility] 0.9 12/18/2019 10:30 AM CREATININE, RANDOM URINE - [facility] 36 07/03/2022 09:03 AM CREATININE-OUTSIDE LAB 1.0 10/11/2018 12:00 AM Lab Results Component Value Date/Time POTASSIUM - [facility] 4.3 10/17/2023 02:02 PM POTASSIUM - [facility] 4.2 12/18/2019 10:30 AM [...] Component Value Date/Time HEMOGLOBIN A1C - [facility] 5.0 07/18/2023 04:50 PM HEMOGLOBIN A1C - [facility] 5.8 (H) 06/27/2022 11:27 AM HEMOGLOBIN A1C - [facility] 5.8 (H) 12/18/2019 10:30 AM HEMOGLOBIN A1C - [facility] 4.7 11/04/2018 01:14 PM HEMOGLOBIN A1C - [facility] 5.5 02/01/2018 09:47 AM * Telephone Encounter - Deepak Michaels LPN - 11/12/2023 10:31 AM EDT Patient's calling in requesting a refill on Metoprolol, she stated that he only received a 1 month supply. Asking that a refill be sent in for a 90 day supply with refills. Pharmacy selected. She is concerned about the dose of Lasix that her is taking. She stated that PCP was aware that he had bilateraly lower leg edema for years but when he went to the hospital they placed him on Lasix 40mg BID. He is up urinating a lot. He was hyponatremic in thehospital and she is concerned that this is going to happen again. Asking if Dr. Cain would re-evaluated this and see if he could go down to 1 Lasix or if he should stay at 2. Please advise. documented in this encounter Plan of Treatment Upcoming Encounters Date Type Department Care Team (Late st Contact Info) Description 12/06/2023 1:00 PM EDT Office Visit Family Practice [facility] [address] [place] [address] Rao Cain III, MD [address] [facility] [place] [address] 07/21/2024 2:00 PM EST Office Visit Nephrology, Digna Rodas [address] [place] [address] Jamie Viera MD [address] [place] [address] Scheduled Procedures Name Priority Associated Diagnoses Date/Ti me COLONOSCOPY FLEXIBLE PROXIMAL DIAGNOSTIC Recall History of colon polyps Health Maintenance Due Date Last Done Comments DTaP,Tdap,and Td Vaccines (2 - Td or Tdap) 10/11/2022 10/11/2012, 10/11/2012, 2007 Depression Screening 12/29/2022 12/29/2021 COVID-19 Vaccine ( - season) 2023 11/03/2020, 11/03/2020, 10/13/2020, Additional history exists GFR 10/17/2024 10/17/2023, 09/04, 09/24/2023, Additional history exists Albumin/Creatinine Ratio 07/03/2025 07/03/2022 Pneumococcal Vaccine: 65+ Years Completed 02/09/2017, 01/27/2015, 07/21/2003 Zoster Vaccines Completed 10/25/2021, 10/2018, 07/09/2018, Additional history exists Influenza Vaccine (FLU shot) Completed , 07/01/2021, [...] Visit Diagnoses Diagnosis HTN, goal below 150/90 Hyponatremia Hyposmolality and/or hyponatremia documented in this encounter Care Teams Tombstone Polisher Relationship Specialty Start Date End Date Rao Cain III, MD [address] [facility] [place] [address] PCP - General Family Medicine 10/21/18 documented as of this encounter
--- OUTSIDE RECORDS SUMMARY | 2023-11-23 23:39 | External Medical Summary | Summary of Care ---
Author Name Unknown Organization [facility] Address [address] [place] [address] Phone [phone] Care Team Providers Care Stucco Plasterer Name Role Phone Mitchell ROMAN MD, Rao Cerda Primary Care Provider [phone] Reason for Visit * Reason Onset Date Comments Order Request 10/22/2023 Advice 10/22/2023 Encounter Details Date Type Department Care Team (Late st Contact Info) Description 10/22/2023 Telephone Family Practice [facility] [address] [place] [address] Rao Cain III, MD [address] [place] [address] Order Request; Advice Allergies No known active allergiesdocumented as [...] BY MOUTH EVERY DAY 100 Tablet 3 3 Active Additional Information Patient not taking.Reported on 10/17/2023 Atorvastatin Calcium 40 MG Oral Tablet (Lipitor)Indicat ions:Dyslipidemi a, goal to be determined Take 1 Tablet by mouth in the morning. 30 Tablet 0 4 Active Gabapentin 100 MG Oral Capsule (Neurontin)Indic ations:Spinal stenosis of lumbar region, unspecified whether neurogenic claudication present Takes by mouth twice daily - 100 mg in AM and 200 mg at bedtime 90 Capsule 0 4 Active metFORMIN HCl 500 MG Oral Tablet (Glucophage)Cristel cations:Prediabe josef Take 1 Tablet by mouth every afternoon. With supper. 30 Tablet 0 4 Active Ocuvite-Lutein Oral Tablet Take 1 Tablet by mouth in the morning. 30 Tablet 0 4 Active Vitamin D-3 25 MCG (1000 UT) Oral Capsule Take 1 Capsule by mouth in the morning. 30 Capsule 0 4 Active Docusate Sodium 50 MG Oral Capsule Take by mouth 2 times a day. 0 Active Ketoconazole 2 % External CreamIndications :Seborrheic dermatitis Apply topically to affected area 2 times a day. Apply to face/scalp 60 g 0 4 11/03/19 24 Furosemide 40 MG Oral Tablet (Lasix)Indicatio ns:Hyponatremia Take 1 Tablet by mouth 2 times a day in the morning and at noon. 60 Tablet 0 4 11/07/19 24 Discontinued Magnesium Oxide 400 MG Oral Tablet Take 1 Tablet by mouth in the morning and 1 Tablet before bedtime. 60 Tablet 0 4 11/13/19 24 Discontinued(Ref ill) Metoprolol Succinate ER 50 MG Oral Tablet Extended Release 24 Hour (Toprol XL)Indications:H TN, goal below 150/90 Take 1 Tablet by mouth in the morning and 1 Tablet before bedtime. 60 Tablet 0 4 11/08/19 24 Discontinued(Ref ill) Potassium Chloride ER 20 MEQ Oral Tablet Extended Release Take 1 Tablet by mouth in the morning. 30 Tablet 0 4 11/13/19 24 Discontinued(Ref ill) documented as of this encounter (statuses as [...] mRNA, LNP-s, No Pre serve, 2-Dose Series ([employer]) 11/03/2020,10/13/2020 Influenza, Whole Virus 07/04/1999,1997,06/03/1997,06/03 PPD 03/21/2023 [...] Note - Rao Cain III, MD - 11/17/2023 11:05 AM EDTAddended by: RAO CAIN on: 11/17/2023 11:05 AM Modules accepted: Orders * Telephone Encounter - Lianne Arriaga LPN - 11/16/2023 4:37 PM EDT Patient's calling in to check on the status of Wheel Chair, Please sign updated DME. * Addendum Note - Thu Holm LPN - 11/15/2023 4:27 PM EDTAddended by: THU HOLM on: 11/15/2023 04:27 PM Modules accepted: Orders * Telephone Encounter - Thu Holm LPN - 11/15/2023 4:10 PM EDT Hernandez from [employer] is calling. States that the insurance will not pay for a back cushion. Recommends that the DME is ordered as a standard wheelchair with standard leg rests, seat cushion and length of need should be lifetime or 99 years. Updated DME pended and Dr. Cain's NPI number was added. Please advise. * Telephone Encounter - Thu Holm LPN - 11/15/2023 3:33 PM EDT Pt's spouse Xiomy is calling and reports that [facility] received the DME but needs additional. Called [employer] [facility], spoke with Hernandez. She will call back to address this. * Addendum Note - Mary Jane Fermin LPN - 11/05/2023 1:34 PM ESTAddended by: MARY JANE FERMIN on: 11/05/2023 01:34 PM Modules accepted: Orders * Telephone Encounter - Mary Jane Fermin LPN - 11/05/2023 1:34 PM EST I placed a new dme order with time of need added and faxed to [employer] as requested. * Telephone Encounter - Merle Davies OSA - 10/26/2023 4:26 PM EST Natasha from [employer] needs the length of need for the wheel chair. ([id number]) Please Fax new order to [phone] * Telephone Encounter - Mary Jane Fermin LPN - 10/24/2023 10:16 AM EST Dme was printed and faxed to [employer] [facility] as requested. * Telephone Encounter - Jeffrey Vela DO - 10/23/2023 4:45 PM EST Order signed, please fax * Telephone Encounter - Mary Jane Fermin LPN - 10/23/2023 11:39 AM EST Dme for wheelchair pended if agreeable. * Telephone Encounter - Dinora Wilson OSA - 10/22/2023 9:56 AM EST An order was requested for this patient. Name of Requesting Provider: [facility] Order Requested: standard wheelchair with standard leg rests and wheelchair cushion Diagnosis/Reason for Request: Generalized weakness [R53.1] Spinal stenosis of lumbar region, unspecified whether neurogenic claudication present [M48.061] Ambulatory dysfunction [R26.2] If order request is for Mammogram: Is the patient having any breast symptoms? N/A Is there a chance of ? N/A Has the patient had any breast problems in the past? NA What location AND department does the patient wish to have their order completed at? Medical Fax Number, if applicable: [phone] Patient did have prescription written on 10/02/2023 from rehab provider, Norma Leigh PA-C for a hiback wheelchair but patient does not qualify for it. Needs new order, length of need, providers signature and date and any office note If the caller is not a current patient, please advise the patient to call their current PCP to havethe order's prior to being seen in our office. The patient was informed that our providers would not order anything (medication, labs, etc.) prior to being seen. documented in this encounter Plan of Treatment Upcoming Encounters Date Type Department Care Team (Late st Contact Info) Description 12/06/2023 1:00 PM EDT Office Visit Family Practice [address] [place] [address] Rao Cain III, MD [address] [place] [address] [place] [address] 07/21/2024 2:00 PM EST Office Visit Nephrology, [address] [place] [address] Jamie Viera MD [address] [place] [address] [place] [address] Scheduled Procedures Name Priority Associated Diagnoses Date/Ti me COLONOSCOPY FLEXIBLE PROXIMAL DIAGNOSTIC Recall History of colon polyps Health Maintenance Due Date Last Done Comments DTaP,Tdap,and Td Vaccines (2 - Td or Tdap) 10/11/2022 10/11/2012, 10/11/2012, 2007 Depression Screening 12/29/2022 12/29/2021 COVID-19 Vaccine ( season) 2023 11/03/2020, 11/03/2020, 10/13/2020, Additional history exists GFR 10/17/2024 10/17/2023, 09/04, 09/24/2023, Additional history exists Albumin/Creatinine Ratio 07/03/2025 07/03/2022 Pneumococcal Vaccine: 65+ Years Completed 02/09/2017, 01/27/2015, 07/21/2003 Zoster Vaccines Completed 10/25/2021, 04/0 10/2018, 07/09/2018, Additional history exists Influenza Vaccine [...] as of this encounter Visit Diagnoses Diagnosis Generalized weakness- Primary Other malaise and fatigue documented in this encounter Care Teams Stucco Plasterer Relationship Specialty Start Date End Date Rao Cain III, MD [address] [place] [address] PCP - General Family Medicine 10/21/18 documented as of this encounter
--- OUTSIDE RECORDS SUMMARY | 2023-11-23 23:39 | External Medical Summary | Summary of Care ---
Author Name Unknown Organization [facility] Address [address] [place] [address] Phone [phone] Care Team Providers Care Veneer Gluer Name Role Phone Mitchell ROMAN MD, Rao Cerda Primary Care Provider [phone] Reason for Visit * Reason Onset Date Comments Medication Refill 11/21/2023 Encounter Details Date Type Department Care Team (Late st Contact Info) Description 11/21/2023 Refill Family Practice [facility] [address] [place] [address] Rao Cain III, MD [address] [place] [address] Hyponatremia Allergies No known active allergiesdocumented as of this encounter (statuses as of 11/23/2023) Medications Medication Sig Dispensed Refills Start Date [...] 10/17/2023 Atorvastatin Calcium 40 MG Oral Tablet (Lipitor)Indicati ons:Dyslipidemia, goal to be determined Take 1 Tablet by mouth in the morning. 30 Tablet 0 10/04/2023 Active metFORMIN HCl 500 MG Oral Tablet (Glucophage)Indic ations:Prediabete s Take 1 Tablet by mouth every afternoon. [...] Oral Tablet Extended Release 24 Hour (Toprol XL)Indications:HT N, goal below 150/90 Take 1 Tablet by [...] before bedtime. 60 Tablet 5 11/13/2023 Active Potassium Chloride Nallely ER 20 MEQ Oral Tablet Extended Release Take 1 Tablet by mouth in the morning. 30 Tablet 11 11/13/2023 Active Gabapentin 100 MG Oral Capsule (Neurontin)Indica tions:Spinal stenosis of lumbar region, unspecified whether neurogenic claudication present Takes by mouth twice daily - 100 mg in AM and 200 mg at bedtime 270 Capsule 0 11/21/2023 Active Furosemide 40 MG Oral Tablet (Lasix)Indication s:Hyponatremia TAKE 1 TABLET BY MOUTH IN MORNING AND AT NOON CHF 180 Tablet 0 11/23/2023 Active Furosemide 40 MG Oral Tablet (Lasix)Indication s:Hyponatremia TAKE 1 TABLET BY MOUTH IN MORNING AND AT NOON CHF 60 Tablet 0 11/17/2023 Discontinue d(Refill) documented as of this encounter (statuses as of 11/23/2023) Active Problems Problem Noted Date Diagnosed Date Hyponatremia 09/20/2023 SIADH (syndrome of inappropriate ADH production) 09/20/2023 Alcohol use 09/20/2023 Esophageal obstruction 09/15/2019 PAF (paroxysmal atrial fibrillation) 08/14/2019 Dyslipidemia 07/17/2018 Lumbar spinal stenosis 09/01/2013 ADVANCE DIRECTIVE INFORMATION 01/06/2005 Overview: No, Advance Directive brochure offered , patient declined. HTN, goal below 140/90 documented as of this encounter (statuses as of 11/23/2023) Resolved Problems Problem Noted Date Diagnosed Date [...] as of this encounter (statuses as of 11/23/2023) Immunizations Name Administration Dates Next Due COVID-19 mRNA, LNP-s, No Pre serve, 2-Dose Series ([employer]) 11/03/2020,10/13/2020 PPD 03/21/2023 Pneumococcal Conjugate Vacc, 13 Valent (Prevnar) 01/27/2015 Pneumococcal Polysaccharide PPV23 (Pneumovax) 02/09/2017 Seasonal Influenza, PF, 6 M & above, [...] Encounter - Rao Cain III, MD - 11/23/2023 7:45 AM EDTSigned Prescriptions: Disp Refills Furosemide 40 MG Oral Tablet (Lasix) 180 Ta*0 Sig: TAKE 1 TABLETBY MOUTH IN MORNING AND AT NOON CHFAuthorizing Provider: RAO CAIN III * Telephone Encounter - Pina Alvarez [facility] - 11/22/2023 4:05 PM EDTPending Prescriptions: Disp Refills Furosemide 40 MG Oral Tablet (Lasix) 180 Ta*0 Sig: TAKE 1 TABLET BY MOUTH IN MORNING AND AT NOON [facility] * Telephone Encounter - Claudine Lackey [facility] - 11/21/2023 2:23 PM EDT Patient is requesting a 90-day supply, pre-edited RXs as such. Please review and approve if appropriate. Pending Prescriptions: Disp Refills Furosemide 40 MG Oral Tablet (Lasix) 180 Ta*0 Sig: TAKE 1 TABLET BY MOUTH IN MORNING AND AT NOON [facility] Last Visit: 07/18/2023 (in office), 12/06/2022 (telemedicine) 12/06/2023 If no future appointments scheduled, and last appointment is greater than a year ago, please schedule patient for an appointment Last date the medication was ordered: [id number] Patient Phone Numbers Labs: Lab Results Component Value Date/Time CREAT 0.8 10/17/2023 02:02 PM CREAT 0.9 12/18/2019 10:30 AM POTASSIUM 4.3 10/17/2023 02:02 PM POTASSIUM 4.2 12/18/2019 10:30 AM TSH 2.58 01/05/2004 09:07 AM LDLCALC 50 06/27/2022 11:27 AM LDLCALC 53 12/18/2019 10:30 AM LDLCALC 127. 06/17/1996 11:15 AM LDLDIRECT 53 11/04/2018 01:14 PM ALT 27 12/18/2019 10:30 AM HGBA1C 5.0 07/18/2023 04:50 PM HGBA1C 5.8 (H) 12/18/2019 10:30 AM documented in this encounter Plan of Treatment Upcoming Encounters Date Type Department Care Team (Late st Contact Info) Description 12/06/2023 1:00 PM EDT Office Visit Family Practice [facility] [address] [facility] [place] [address] Rao Cain III, MD [address] [facility] [place] [address] 07/21/2024 2:00 PM EST Office Visit Nephrology, [facility] [address] [facility] [place] [address] Jamie Viera MD [address] [facility] [place] [address] Scheduled Procedures Name Priority Associated Diagnoses Date/Ti [...] 02/09/2017, 01/27/2015, 07/21/2003 Zoster Vaccines Completed 10/25/2021, 04/10/2018, 07/09/2018, Additional history exists Influenza Vaccine (FLU [...] as of this encounter Visit Diagnoses Diagnosis Hyponatremia Hyposmolality and/or hyponatremia documented in this encounter Care Teams Veneer Gluer Relationship Specialty Start Date End Date Rao Cain III, MD [address] [place] [address] PCP - General Family Medicine 10/21/18 documented as of this encounter
--- OUTSIDE RECORDS SUMMARY | 2023-11-23 23:39 | External Medical Summary | Summary of Care ---
Author Name Unknown Organization [facility] Address [address] [place] [address] Phone [phone] Care Team Providers Care Head Piece Assembler Name Role Phone Mitchell ROMAN MD, Jerry Cerda Primary Care Provider [phone] Reason for Visit * Reason Onset Date Comments Medication Refill 11/13/2023 Encounter Details Date Type Department Care Team (Late st Contact Info) Description 11/13/2023 Refill Family Practice [facility] [address] [facility] [place] [address] Jerry Medrano III, MD [address] [place] [address] Dyslipidemia, goal to be determined; Spinal stenosis of lumbar region, unspecified whether neurogenic claudication present; Prediabetes Allergies No known active allergiesdocumented as of this encounter (statuses as of 11/21/2023) Medications Medication Sig Dispensed Refills Start Date [...] the morning. 30 Tablet 11 11/13/2023 Active Furosemide 40 MG Oral Tablet (Lasix)Indications :Hyponatremia TAKE 1 TABLET BY MOUTH IN MORNING AND AT NOON CHF 60 Tablet 0 11/07/2023 Discontinue d(Refill) documented as of this encounter (statuses as of 11/21/2023) Active Problems Problem Noted Date Diagnosed Date Hyponatremia 09/20/2023 SIADH (syndrome of inappropriate ADH production) 09/20/2023 Alcohol use 09/20/2023 Esophageal obstruction 09/15/2019 PAF (paroxysmal atrial fibrillation) 08/14/2019 Dyslipidemia 07/17/2018 Lumbar spinal stenosis 09/01/2013 ADVANCE DIRECTIVE INFORMATION 01/06/2005 Overview: No, Advance Directive brochure offered , patient declined. HTN, goal below 140/90 documented as of this encounter (statuses as of 11/21/2023) Resolved Problems Problem Noted Date Diagnosed Date [...] as of this encounter (statuses as of 11/21/2023) Immunizations Name Administration Dates Next Due COVID-19 mRNA, LNP-s, No Pre serve, 2-Dose Series ([email or web address]) 11/03/2020,10/13/2020 PPD 03/21/2023 Pneumococcal Conjugate Vacc, 13 [...] encounter Miscellaneous Notes * Telephone Encounter - Dianne Eldridge, lost and found clerk - 11/13/2023 12:10 PM EDT Janell at [facility] calling to request a refill on see below. Medication was last prescribed by Odalys Roy but patient is asking if PCP can take over the medication. Please advise if this is appropriate and send to [id number] [address] [facility] if agreeable. Thank you for your assistance Dianne Eldridge Drafting Teacher II Centralized Clinical Pharmacy Services (CCPS) (Formerly Telepharmacy) 11/13/2023,12:27 PM These were all written by Date: 10/04/2023 Department: [facility] [place] Ordering/Authorizing: Odalys Roy New scripts written by pcp are required please send new ninety day rxs per pt request Did you pend patient's preferred pharmacy and medication before forwarding?yes Pharmacy: [id number] [address] [facility] Pending Prescriptions: Disp Refills Atorvastatin Calcium 40 MG Oral Tablet (L*90 Tab*1 Sig: Take 1 Tablet by mouth in the morning. Gabapentin 100 MG Oral Capsule (Neurontin)270 Ca*1 Sig: Takes by mouth twice daily - 100 mg in AM and 200 mg at bedtime metFORMIN HCl 500 MG Oral Tablet (Glucoph*90 Tab*1 Sig: Take 1 Tablet by mouth every afternoon. With supper. Ocuvite-Lutein Oral Tablet 90 Tab*1 Sig: Take 1 Tablet by mouth in the morning. Vitamin D-3 25 MCG (1000 UT) Oral Capsule 90 Cap*1 Sig: Take 1 Capsule by mouth in the morning. documented in this encounter Plan of Treatment Upcoming Encounters Date Type Department Care Team (Late st Contact Info) Description 12/06/2023 1:00 PM EDT Office Visit Family Practice [facility] [place] [address] [place] [address] Jerry Medrano III, MD [facility] [place] [address] 07/21/2024 2:00 PM EST Office Visit Nephrology, [facility] [address] [place] [address] [address] Jamie Viera MD 200 [facility] [place] [address] Scheduled Procedures Name Priority Associated Diagnoses Date/Ti me COLONOSCOPY FLEXIBLE PROXIMAL DIAGNOSTIC Recall History of colon polyps Health Maintenance Due Date Last Done Comments DTaP,Tdap,and Td Vaccines (2 - Td or Tdap) 10/11/2022 10/11/2012, 10/11/2012, 2007 Depression Screening 12/29/2022 12/29/2021 COVID-19 Vaccine (3 - 2022- season) 2023 11/03/2020, 11/03/2020, 10/13/2020, Additional history [...] to be determined Other and unspecified hyperlipidemia Spinal stenosis of lumbar region, unspecified whether neurogenic claudication present Prediabetes Other abnormal glucose documented in this encounter Care Teams Head Piece Assembler Relationship Specialty Start Date End Date Jerry Medrano III, MD [address] [place] [address] PCP - General Family Medicine 10/21/18 documented as of this encounter
--- OUTSIDE RECORDS SUMMARY | 2023-11-23 23:39 | External Medical Summary | Summary of Care ---
Author Name Unknown Organization [facility] Address [address] [place] [address] Phone [phone] Care Team Providers Care Gasoline Engine Assembler Name Role Phone Mitchell ROMAN MD, Rao Cerda Primary Care Provider [phone] Reason for Visit * Reason Onset Date Comments Medication Refill 11/21/2023 Encounter Details Date Type Department Care Team (Late st Contact Info) Description 11/21/2023 Refill Family Practice [facility] 200 [facility] [place] [address] Rao Cain III, MD 200 [place] [address] Spinal stenosis of lumbar region, unspecified whether neurogenic claudication present Allergies No known active allergiesdocumented as of [...] 11/13/2023 Active Furosemide 40 MG Oral Tablet (Lasix)Indication s:Hyponatremia TAKE 1 TABLET BY MOUTH IN MORNING AND AT NOON CHF 60 Tablet 0 11/17/2023 Active Gabapentin 100 MG Oral Capsule (Neurontin)Indica tions:Spinal stenosis of lumbar region, unspecified whether neurogenic claudication present Takes by mouth twice daily - 100 mg in AM and 200 mg at bedtime 270 Capsule 0 11/21/2023 Active Gabapentin 100 MG Oral Capsule (Neurontin)Indica tions:Spinal stenosis of lumbar region, unspecified whether neurogenic claudication present Takes by mouth twice daily - 100 mg in AM and 200 mg at bedtime 90 Capsule 0 10/04/2023 Discontinue d(Refill) documented as of this encounter [...] Encounter - Rao Cain III, MD - 11/21/2023 2:29 PM EDTSigned Prescriptions: Disp Refills Gabapentin 100 MG Oral Capsule (Neurontin) 270 Ca*0 Sig: Takes by mouth twice daily - 100 mg in AM and 200 mg at bedtimeAuthorizing Provider: RAO CAIN III------ * Telephone Encounter - Claudine Lackey CPhT - 11/21/2023 2:24 PM EDT Patient is requesting a 90-day supply, pre-edited RXs as such. Please review and approve if appropriate. Pending Prescriptions: Disp Refills Gabapentin 100 MG Oral Capsule (Neurontin)180 Ca*0 Sig: Takes by mouth twice daily - 100 mg in AM and 200 mg at bedtime Last Visit: 07/18/2023 (in office), 12/06/2022 (telemedicine) 12/06/2023 If no future appointments scheduled, and last appointment is greater than a year ago, please schedule patient for an appointment Last date the medication was ordered: [id number] Patient Phone Numbers Labs: Lab Results Component [...] PM HGBA1C 5.8 (H) 12/18/2019 10:30 AM * Telephone Encounter - Kimberly Fermin LPN - 11/21/2023 1:34 PM EDT Pending Prescriptions: Disp Refills Gabapentin 100 MG Oral Capsule (Neurontin) 90 Cap*0 Sig: Takes by mouth twice daily - 100 mg in AM and 200 mg at bedtime * Telephone Encounter - Kapil Hutchins, investment director - 11/21/2023 9:47 AM EDT Did you pend patient's preferred pharmacy and medication before forwarding?yes Pharmacy: [id number] [id number] [facility] Pending Prescriptions: Disp Refills Gabapentin 100 MG Oral Capsule (Neurontin)90 Cap*0 Sig: Takes by mouth twice daily - 100 mg in AM and 200 mg at bedtime Last Visit: 07/18/2023 (in office), 12/06/2022 (telemedicine) Next Visit: 12/06/2023 If no future appointments scheduled, and last appointment is greater than a year ago, please schedule patient for a follow-up appointment Last date the medication was ordered: 10/04/2023 Is this request for a controlled substance?No Urine Drug Screen:No results found for this or any previous visit. Patient Phone Numbers Labs: Lab Results Component [...] 1:00 PM EDT [facility] [place] 200 [facility] [place] [address] Rao Cain III, MD 200 [facility] [place] [address] 07/21/2024 2:00 PM EST Office Visit Nephrology, [facility] 200 [facility] [place] [address] Jamie Viera MD 200 [facility] [place] [address] Scheduled Procedures Name Priority Associated Diagnoses Date/Ti [...] as of this encounter Visit Diagnoses Diagnosis Spinal stenosis of lumbar region, unspecified whether neurogenic claudication present documented in this encounter Care Teams Gasoline Engine Assembler Relationship Specialty Start Date End Date Rao Cain III, MD 200 [facility] [place] [address] PCP - General Family Medicine 10/21/18 documented as of this encounter
--- OUTSIDE RECORDS SUMMARY | 2023-11-23 23:40 | External Medical Summary | Summary of Care ---
Author Name Unknown Organization [facility] Address [address] [place] [address] Phone [phone] Care Team Providers Care O[employer] Truck Driver Name Role Phone Mitchell ROMAN MD, Jerry Cerda Primary Care Provider [phone] Reason for Visit * Reason Onset Date Comments Medication Refill 11/13/2023 Encounter Details Date Type Department Care Team (Late st Contact Info) Description 11/13/2023 Refill Family Practice [facility] 200 [facility] [place] [address] Jerry Medrano III, MD 200 [place] [address] Dyslipidemia, goal to be determined; Spinal stenosis of lumbar region, unspecified whether neurogenic claudication present; Prediabetes Allergies No known active allergiesdocumented as of this encounter (statuses as of 11/15/2023) Medications Medication Sig Dispensed Refills Start Date [...] 10/17/2023 Atorvastatin Calcium 40 MG Oral Tablet (Lipitor)Indication s:Dyslipidemia, goal to be determined Take 1 Tablet by mouth in the morning. 30 Tablet 0 10/04/2023 Active Gabapentin 100 MG Oral Capsule (Neurontin)Indicati ons:Spinal stenosis of lumbar region, unspecified whether neurogenic claudication present Takes by mouth twice daily - 100 mg in AM and 200 mg at bedtime 90 Capsule 0 10/04/2023 Active metFORMIN HCl 500 MG Oral Tablet (Glucophage)Indicat ions:Prediabetes Take 1 Tablet by mouth every afternoon. [...] mouth 2 times a day. 0 Active Furosemide 40 MG Oral Tablet (Lasix)Indications: Hyponatremia TAKE 1 TABLET BY MOUTH IN MORNING AND AT NOON CHF 60 Tablet 0 11/07/2023 Active Metoprolol Succinate ER 50 MG Oral Tablet Extended Release 24 Hour (Toprol XL)Indications:HTN, goal below 150/90 Take 1 Tablet by [...] the morning. 30 Tablet 11 11/13/2023 Active documented as of this encounter (statuses as of 11/15/2023) Active Problems Problem Noted Date Diagnosed Date Hyponatremia 09/20/2023 SIADH (syndrome of inappropriate ADH production) 09/20/2023 Alcohol use 09/20/2023 Esophageal obstruction 09/15/2019 PAF (paroxysmal atrial fibrillation) 08/14/2019 Dyslipidemia 07/17/2018 Lumbar spinal stenosis 09/01/2013 ADVANCE DIRECTIVE INFORMATION 01/06/2005 Overview: No, Advance Directive brochure offered , patient declined. HTN, goal below 140/90 documented as of this encounter (statuses as of 11/15/2023) Resolved Problems Problem Noted Date Diagnosed Date [...] as of this encounter (statuses as of 11/15/2023) Immunizations Name Administration Dates Next Due COVID-19 mRNA, LNP-s, No Pre serve, 2-Dose Series ([employer]) 11/03/2020,10/13/2020 PPD 03/21/2023 Pneumococcal Conjugate Vacc, 13 [...] Notes * Telephone Encounter - Dianne Eldridge, cardiac/vascular sonographer - 11/13/2023 12:10 PM EDT Janell at [facility] calling to request a refill on see below. Medication was last prescribed by Odalys Roy but patient is asking if PCP can take over the medication. Please advise if this is appropriate and send to [id number] [address] [facility] if agreeable. Thank you for your assistance Dianne Eldridge [employer] Vice Principal II Centralized Clinical Pharmacy Services (CCPS) (Formerly Telepharmacy) 11/13/2023,12:27 PM These were all written by Date: 10/04/2023 Department: [facility] [place] Ordering/Authorizing: Odalys Roy New scripts written by pcp are required please send new ninety day rxs per pt request Did you pend patient's preferred pharmacy and medication before forwarding?yes Pharmacy: [id number] [address] [facility] Pending Prescriptions: Disp Refills Atorvastatin Calcium [...] 1:00 PM EDT Office Visit Family Practice [address] [place] [address] Jerry Medrano III, MD 200 [facility] [place] [address] 07/21/2024 2:00 PM EST Office Visit Nephrology, [facility] [address] [place] [address] Jamie Viera MD 200 [facility] [place] [address] Scheduled Procedures Name Priority Associated Diagnoses Date/Ti [...] glucose documented in this encounter Care Teams Otr Flatbed [employer] Truck Driver Relationship Specialty Start Date End Date Jerry Medrano III, MD 200 [facility] [place] [address] PCP - General Family Medicine 10/21/18 documented as of this encounter
--- OUTSIDE RECORDS SUMMARY | 2023-11-23 23:40 | External Medical Summary | Summary of Care ---
Author Name Unknown Organization [facility] Address [address] [place] [address] Phone [phone] Care Team Providers Care Sales Superintendent Name Role Phone Mitchell ROMAN MD, Rao Cerda Primary Care Provider [phone] Reason for Visit * Reason Onset Date Comments Advice 11/12/2023 Encounter Details Date Type Department Care Team (Late st Contact Info) Description 11/12/2023 Telephone Family Practice [facility] 200 [facility] [place] [address] Rao Cain III, MD 200 [facility] [place] [address] Advice Allergies No known active allergiesdocumented as of this encounter (statuses as of 11/16/2023) Medications Medication Sig Dispensed Refills Start Date [...] 0 Active Furosemide 40 MG Oral Tablet (Lasix)Indications [...] before bedtime. 60 Tablet 5 11/13/2023 Active Magnesium Oxide 400 MG Oral Tablet Take 1 Tablet by mouth in the morning and 1 Tablet before bedtime. 60 Tablet 0 10/04/2023 4 Discontinue d(Refill) Potassium Chloride ER 20 MEQ Oral Tablet Extended Release Take 1 Tablet by mouth in the morning. 30 Tablet 0 10/04/2023 4 Discontinue d(Refill) Metoprolol Succinate ER 50 MG Oral Tablet Extended Release 24 Hour (Toprol XL)Indications:HTN , goal below 150/90 Take 1 Tablet by mouth in the morning and 1 Tablet before bedtime. 60 Tablet 0 11/08/2023 4 Discontinue d(Refill) documented as of this encounter (statuses as of 11/16/2023) Active Problems Problem Noted Date Diagnosed Date Hyponatremia 09/20/2023 SIADH (syndrome of inappropriate ADH production) 09/20/2023 Alcohol use 09/20/2023 Esophageal obstruction 09/15/2019 PAF (paroxysmal atrial fibrillation) 08/14/2019 Dyslipidemia 07/17/2018 Lumbar spinal stenosis 09/01/2013 ADVANCE DIRECTIVE INFORMATION 01/06/2005 Overview: No, Advance Directive brochure offered , patient declined. HTN, goal below 140/90 documented as of this encounter (statuses as of 11/16/2023) Resolved Problems Problem Noted Date Diagnosed Date [...] as of this encounter (statuses as of 11/16/2023) Immunizations Name Administration Dates Next Due COVID-19 mRNA, LNP-s, No Pre serve, 2-Dose Series ([employer]) 11/03/2020,10/13/2020 Influenza, Whole Virus 07/04/1999,1997,06/03/1997,06/03 PPD 03/21/2023 [...] encounter Miscellaneous Notes * Telephone Encounter - Mitchell III, Rao Cerda MD - 11/16/2023 8:56 AM EDT Since [...] to move and is currently residing in [facility]. Is asking if another renal function [...] Modules accepted: Orders * Addendum Note - Jose Strong LPN - 11/13/2023 9:07 AM EDTAddended by: JOSE STRONG on: 11/13/2023 09:07 AM Modules accepted: Orders * Telephone Encounter - Jose Strong LPN - 11/13/2023 8:59 AM EDT Patient's is calling. Has not heard back about the lasix. Did receive the metoprolol. [facility] told her he also needs magnesium and potassium. Asking if Dr. Cain wants to keep him on these? If he does, asking it be sent to [facility] Pending Prescriptions: Disp Refills Potassium Chloride ER [...] 02/01/2018 09:47 AM * Telephone Encounter - Lianne Arriaga LPN - 11/12/2023 10:31 AM EDT Patient's [...] 1:00 PM EDT Office Visit Family Practice [facility] [place] 200 [facility] [place] [address] Rao Cain III, MD 200 [facility] [place] [address] 07/21/2024 2:00 PM EST Office Visit Nephrology, [facility] 200 [facility] [place] [address] Jamie Viera MD 200 [facility] [place] [address] Scheduled Procedures Name Priority Associated Diagnoses Date/Ti [...] 150/90 documented in this encounter Care Teams Sales Superintendent Relationship Specialty Start Date End Date Rao Cain III, MD 200 [place] [address] PCP - General Family Medicine 10/21/18 documented as of this encounter
--- OUTSIDE RECORDS SUMMARY | 2023-11-23 23:40 | External Medical Summary | Summary of Care ---
Author Name Unknown Organization [facility] Address [address] [place] [address] Phone [phone] Care Team Providers Care Material Control Supervisor Name Role Phone Mitchell ROMAN MD, Rao Cerda Primary Care Provider [phone] Reason for Visit * Reason Onset Date Comments Advice 11/12/2023 Encounter Details Date Type Department Care Team (Late st Contact Info) Description 11/12/2023 Telephone Family Practice [facility] 200 [facility] [place] [address] Rao Cain III, MD 200 [facility] [place] [address] Advice Allergies No known active allergiesdocumented as [...] mRNA, LNP-s, No Pre serve, 2-Dose Series ([employer]) 11/03/2020,10/13/2020 Influenza, Whole Virus 07/04/1999,1997,06/03/1997,06/03 PPD 03/21/2023 [...] about the lasix. Did receive the metoprolol. [facility] told her he also needs magnesium and potassium. Asking if Dr. Cain wants to keep him on these? If he does, asking it be sent to [facility] Pending Prescriptions: Disp Refills Potassium Chloride ER [...] M48.061 Dyslipidemia E78.5 PAF (paroxysmal atrial fibrillation) ([facility]) I48.0 Esophageal obstruction K22.2 Hyponatremia E87.1 SIADH (syndrome of inappropriate ADH production) ([facility]) E22.2 Alcohol use Z78.9 Labs: Lab Results [...] 1:00 PM EDT Office Visit Family Practice [facility] [place] [address] [place] [address] Rao Cain III, MD [address] [place] [address] 07/21/2024 2:00 PM EST Office Visit Nephrology, [facility] [address] [place] [address] Jamie Viera MD [address] [place] [address] Scheduled Procedures Name Priority Associated Diagnoses Date/Ti [...] 150/90 documented in this encounter Care Teams Material Control Supervisor Relationship Specialty Start Date End Date Rao Cain III, MD [address] [place] [address] PCP - General Family Medicine 10/21/18 documented as of this encounter
--- OUTSIDE RECORDS SUMMARY | 2023-11-23 23:40 | External Medical Summary | Summary of Care ---
Author Name Unknown Organization [facility] Address [address] [place] [address] Phone [phone] Care Team Providers Care Transportation Solutions Manager Name Role Phone Mitchell ROMAN MD, Rao Cerda Primary Care Provider [phone] Reason for Visit * Reason Onset Date Comments Advice 11/12/2023 Encounter Details Date Type Department Care Team (Late st Contact Info) Description 11/12/2023 Telephone Family Practice [facility] 200 [place] [address] Rao Cain III, MD 200 [place] [address] Advice Allergies No known active allergiesdocumented as [...] mRNA, LNP-s, No Pre serve, 2-Dose Series ([employer]) 11/03/2020,10/13/2020 Influenza, Whole Virus 07/04/1999,1997,06/03/1997,06/03 PPD 03/21/2023 [...] about the lasix. Did receive the metoprolol. [facility] told her he also needs magnesium and potassium. Asking if Dr. Cain wants to keep him on these? If he does, asking it be sent to [facility] Pending Prescriptions: Disp Refills Potassium Chloride [...] M48.061 Dyslipidemia E78.5 PAF (paroxysmal atrial fibrillation) ([facility]) I48.0 Esophageal obstruction K22.2 Hyponatremia E87.1 SIADH (syndrome of inappropriate ADH production) ([facility]) E22.2 Alcohol use Z78.9 Labs: Lab Results [...] EDT Office Visit Family Practice [facility] [place] [address] [place] [address] Rao Cain III, MD [address] [place] [address] 07/21/2024 2:00 PM EST Office Visit Nephrology, [facility] [address] [place] [address] Jamie Viera MD [address] [place] [address] Scheduled Procedures Name Priority Associated Diagnoses Date/Ti [...] 150/90 documented in this encounter Care Teams Transportation Solutions Manager Relationship Specialty Start Date End Date Rao Cain III, MD [address] [place] [address] PCP - General Family Medicine 10/21/18 documented as of this encounter
--- OUTSIDE RECORDS SUMMARY | 2023-11-23 23:40 | External Medical Summary | Summary of Care ---
Author Name Unknown Organization [facility] Address [address] [place] [address] Phone [phone] Care Team Providers Care Russet Repairer Name Role Phone Mitchell ROMAN MD, Jerry Cerda Primary Care Provider [phone] [phone] Reason for Visit * Reason Onset Date Comments Order Request 10/22/2023 Advice 10/22/2023 Encounter Details Date Type Department Care Team (Late st Contact Info) Description 10/22/2023 Telephone Family Practice [facility] 200 [facility] [place] [address] Jerry Medrano III, MD [address] [place] [address] Order Request; Advice Allergies No known active [...] mRNA, LNP-s, No Pre serve, 2-Dose Series ([employer]) 11/03/2020,10/13/2020 Influenza, Whole Virus 07/04/1999,1997,06/03/1997,06/03 PPD 03/21/2023 [...] Encounter - Kira Holm LPN - 11/15/2023 3:33 PM EDT Pt's spouse Xiomy is calling and reports that [facility] received the DME but needs additional. Called [facility], spoke with Hernandez. She will call back to address this. * Addendum Note - Mary Jane Barreto LPN - 11/05/2023 1:34 PM ESTAddended by: MARY JANE BARRETO on: 11/05/2023 01:34 PM Modules accepted: Orders * Telephone Encounter - Mary Jane Barreto LPN - 11/05/2023 1:34 PM EST I placed a new dme order with time of need added and faxed to [facility] as requested. * Telephone Encounter - Merle Davies OSA - 10/26/2023 4:26 PM EST Natasha from [facility] needs the length of need for the wheel chair. ([id number]) Please Fax new order to [phone] * Telephone Encounter - Mary Jane Barreto LPN - 10/24/2023 10:16 AM EST Dme was printed and faxed to [facility] as requested. * Telephone Encounter - Jeffrey Vela DO - 10/23/2023 4:45 PM EST Order signed, please fax * Telephone Encounter - Mary Jane Barreto LPN - 10/23/2023 11:39 AM EST Dme [...] completed at? Medical Fax Number, if applicable: [phone] Patient did have prescription written on 10/02/2023 [...] 1:00 PM EDT Office Visit Family Practice [facility] [address] [place] [address] [place] Jerry ROMAN MD [address] [place] [address] 07/21/2024 2:00 PM EST Office Visit Nephrology, [facility] [address] [place] [address] [address] Jamie Viera MD [address] [place] [address] Scheduled Procedures Name Priority Associated Diagnoses Date/Ti me COLONOSCOPY FLEXIBLE PROXIMAL DIAGNOSTIC Recall History of colon polyps Health Maintenance Due Date Last Done Comments DTaP,Tdap,and Td Vaccines (2 - Td or Tdap) 10/11/2022 10/11/2012, 10/11/2012, 2007 Depression Screening 12/29/2022 12/29/2021 COVID-19 Vaccine (3 - 2022-24 season) 2023 11/03/2020, 11/03/2020, 10/13/2020, Additional history [...] fatigue documented in this encounter Care Teams Russet Repairer Relationship Specialty Start Date End Date Jerry Medrano III, MD [address] [place] [address] PCP - General Family Medicine 10/21/18 documented as of this encounter
--- OUTSIDE RECORDS SUMMARY | 2023-11-23 23:40 | External Medical Summary | Summary of Care ---
Author Name Unknown Organization [facility] Address [address] [place] [address] Phone [phone] Care Team Providers Care Paper Cutter Name Role Phone Mitchell ROMAN MD, Rao Cerda Primary Care Provider [phone] Reason for Visit * Reason Onset Date Comments Advice 11/12/2023 Encounter Details Date Type Department Care Team (Late st Contact Info) Description 11/12/[address] [facility] [address] [place] [address] Rao Cain III, MD [address] [place] [address] Advice Allergies No known active allergiesdocumented as [...] mRNA, LNP-s, No Pre serve, 2-Dose Series ([employer]) 11/03/2020,10/13/2020 Influenza, Whole Virus 07/04/1999,1997,06/03/1997,06/03 PPD 03/21/2023 [...] to move and is currently residing in [facility]. Is asking if another renal function panel [...] about the lasix. Did receive the metoprolol. Ninfa Hudson told her he also needs magnesium and potassium. Asking if Dr. Cain wants to keep him on these? If he does, asking it be sent to [facility] Pending Prescriptions: Disp Refills Potassium [...] E78.5 PAF (paroxysmal atrial fibrillation) ([facility]) I48.0 Esophageal obstruction K22.2 Hyponatremia E87.1 SIADH (syndrome of inappropriate ADH production) ([facility]) E22.2 Alcohol use Z78.9 Labs: Lab Results [...] 1:00 PM EDT Office Visit Family Practice [facility] [address] [facility] [place] [address] Rao Cain III, MD [address] [facility] [place] [address] 07/21/2024 2:00 PM EST Office Visit Nephrology, [facility] [address] [facility] [place] [address] Jamie Viera MD [address] [facility] [place] [address] Scheduled Procedures Name Priority Associated Diagnoses Date/Ti [...] 150/90 documented in this encounter Care Teams Paper Cutter Relationship Specialty Start Date End Date Rao Cain III, MD [address] [place], [place] [id number] PCP - General Family Medicine 10/21/18 documented as of this encounter
--- OUTSIDE RECORDS SUMMARY | 2023-11-23 23:40 | External Medical Summary | Summary of Care ---
Author Name Unknown Organization [facility] Address [address] [place] [address] Phone [phone] Care Team Providers Care Sales Ledger Administrator Name Role Phone Mitchell ROMAN MD, Rao Cerda Primary Care Provider [phone] Reason for Visit * Reason Onset Date Comments Advice 11/12/2023 Encounter Details Date Type Department Care Team (Late st Contact Info) Description 11/12/2023 Telephone Family Practice [facility] 200 [facility] [place] [address] Rao Cain III, MD 200 [facility] [place] [address] Advice Allergies No known active allergiesdocumented as [...] mRNA, LNP-s, No Pre serve, 2-Dose Series ([employer]) 11/03/2020,10/13/2020 Influenza, Whole Virus 07/04/1999,1997,06/03/1997,06/03 PPD 03/21/2023 [...] encounter Miscellaneous Notes * Telephone Encounter - Aliza Gaines LPN [...] about the lasix. [facility] also needs [facility] and potassium. Asking if Dr. Cain wants to keep him on these? If he does, asking it be sent to [facility] Pending Prescriptions: Disp Refills Potassium [...] Dyslipidemia E78.5 PAF (paroxysmal atrial fibrillation) ([facility]) I48.0 Esophageal obstruction K22.2 Hyponatremia E87.1 SIADH (syndrome of inappropriate ADH production) ([facility]) E22.2 Alcohol use Z78.9 Labs: Lab Results [...] PM EDT Office Visit Family Practice [facility] [place] [address] [place] [address] Rao Cain III, MD [facility] [place] [address] 07/21/2024 2:00 PM EST Office Visit Nephrology, [facility] [address] [place] [address] Jamie Viera MD [address] [facility] [place] [address] Scheduled Procedures Name Priority Associated Diagnoses Date/Ti [...] 02/09/2017, 01/27/2015, 07/21/2003 Zoster Vaccines Completed 10/25/2021, /10/2018, 07/09/2018, Additional history exists Influenza Vaccine (FLU [...] documented in this encounter Care Teams Sales Ledger Administrator Relationship Specialty Start Date End Date Rao Cain III, MD [address] [place] [address] PCP - General Family Medicine 10/21/18 documented as of this encounter
--- OUTSIDE RECORDS SUMMARY | 2023-11-23 23:40 | External Medical Summary | Summary of Care ---
Author Name Unknown Organization [facility] Address [address] [place] [address] Phone [phone] Care Team Providers Care Sample Worker Name Role Phone Mitchell ROMAN MD, Jerry Cerda Primary Care Provider [phone] Reason for Visit * Reason Onset Date Comments Medication Refill 11/13/2023 Status Check 11/13/2023 Encounter Details Date Type Department Care Team (Late st Contact Info) Description 11/13/2023 Refill Family Practice [facility] 200 [place] [address] Jerry Medrano III, MD 200 [place] [address] HTN, goal below 150/90; Hyponatremia Allergies No known active allergiesdocumented as [...] mRNA, LNP-s, No Pre serve, 2-Dose Series (Company) 11/03/2020,10/13/2020 PPD 03/21/2023 Pneumococcal Conjugate Vacc, 13 [...] encounter Miscellaneous Notes * Telephone Encounter - Melany Broderick CPhT - 11/14/2023 11:30 AM EDT Pt calling to check on status of Furosemide 40 MG Oral Tablet (Lasix) . Caller can be reached at [phone]. Thank you, Elyse Broderick CPhT Hospice Administrator II Centralized Clinical Pharmacy Services (CCPS) (Formerly Telepharmacy) 11/14/2023,11:30 AM * Telephone Encounter - Dianne Eldridge barrel builder - 11/13/2023 12:16 PM EDT Did you pend patient's preferred pharmacy and medication before forwarding?yes Pharmacy: [id number] [address] [facility] Pending Prescriptions: Disp Refills Magnesium Oxide 400 MG Oral Tablet 180 Ta*1 Sig: Take 1 Tablet by mouth in the morning and 1 Tablet before bedtime. Potassium Chloride Nallely ER 20 MEQ Oral Ta*90 Tab*3 Sig: Take 1 Tablet by mouth in the morning. Metoprolol Succinate ER 50 MG Oral Tablet*180 Ta*1 Sig: Take 1 Tablet by mouth in the morning and 1 Tablet before bedtime. Furosemide 40 MG Oral Tablet (Lasix) 180 Ta*1 Last Visit: 07/18/2023 (in office), 12/06/2022 (telemedicine) Next Visit: 12/06/2023 If no future appointments scheduled, and last appointment is greater than a year ago, please schedule patient for a follow-up appointment Last date the medication was ordered: Is this request for a controlled substance?No [...] State Keiko Atkins [address] [place] [address] [address] Mitchell IIIJerry MD [address] [place] [address] 07/21/2024 2:00 PM EST Office Visit Nephrology, [facility] 200 [facility] [place] [address] Jamie Viera MD 200 [facility] [place] [address] Scheduled Procedures Name Priority Associated Diagnoses Date/Ti [...] hyponatremia documented in this encounter Care Teams Sample Worker Relationship Specialty Start Date End Date Jerry Medrano III, MD 200 [facility] [place] [address] PCP - General Family Medicine 10/21/18 documented as of this encounter
--- OUTSIDE RECORDS SUMMARY | 2023-11-23 23:40 | External Medical Summary | Summary of Care ---
Author Name Unknown Organization [facility] Address [address] [place] [address] Phone [phone] Care Team Providers Care Computer Systems Software Architect Name Role Phone Mitchell ROMAN MD, Jerry Cerda Primary Care Provider [phone] Reason for Visit * Reason Onset Date Comments Order Request 10/22/2023 Advice 10/22/2023 Encounter Details Date Type Department Care Team (Late st Contact Info) Description 10/22/2023 Telephone Family Practice [facility] 200 [facility] [place] [address] Jerry Medrano III, MD [address] [place] [address] Order Request; Advice Allergies No known active [...] mRNA, LNP-s, No Pre serve, 2-Dose Series ([employer]) 11/03/2020,10/13/2020 Influenza, Whole Virus 07/04/1999,1997,06/03/1997,06/03 PPD 03/21/2023 [...] encounter Miscellaneous Notes * Telephone Encounter - Lianne Arriaga LPN - 11/16/2023 4:37 PM EDT Patient's calling in to check on the status of Wheel Chair, Please sign updated DME. * Addendum Note - Thu Holm LPN - 11/15/2023 4:27 PM EDTAddended by: THU HOLM on: 11/15/2023 04:27 PM Modules accepted: Orders * Telephone Encounter - Thu Holm LPN - 11/15/2023 4:10 PM EDT Hernandez from [employer] is calling. States that the insurance will not pay for a back cushion. Recommends that the DME is ordered as a standard wheelchair with standard leg rests, seat cushion and length of need should be lifetime or 99 years. Updated DME pended and Dr. Medrano's NPI number was added. Please advise. * Telephone Encounter - Thu Holm LPN - 11/15/2023 3:33 PM EDT Pt's spouse Xiomy is calling and reports that [employer] [facility] received the DME but needs additional. Called [employer], spoke with Hernandez. She will call back [...] length of need for the wheel chair. ([phone]) Please Fax new order to [phone] * Telephone Encounter - Mary Jane Barreto [...] this patient. Name of Requesting Provider: [facility] Order Requested: standard wheelchair with standard [...] completed at? Medical Fax Number, if applicable: [phone] Patient did have prescription written on 10/02/2023 [...] PM EDT Office Visit Family Practice [facility] [address] [place] [address] Jerry Medrano III, MD 200 [facility] [place] [address] 07/21/2024 2:00 PM EST Office Visit Nephrology, [facility] 200 [facility] [place] [address] Jamie Viera MD 200 [facility] [place] [address] Scheduled Procedures Name Priority Associated Diagnoses Date/Ti [...] fatigue documented in this encounter Care Teams Computer Systems Software Architect Relationship Specialty Start Date End Date Jerry Medrano III, MD [address] [place] [address] PCP - General Family Medicine 10/21/18 documented as of this encounter
--- OUTSIDE RECORDS SUMMARY | 2023-11-23 23:40 | External Medical Summary | Summary of Care ---
Author Name Unknown Organization [facility] Address [address] [place] [address] Phone [phone] Care Team Providers Care Painter Chassis Name Role Phone Mitchell ROMAN MD, Rao Cerda Primary Care Provider [phone] Reason for Visit * Reason Onset Date Comments Advice 11/12/2023 Encounter Details Date Type Department Care Team (Late st Contact Info) Description 11/12/2023 Telephone Family Practice [facility] 200 [facility] [place] [address] Rao Cain III, MD 200 [facility] [place] [address] Advice Allergies No known active allergiesdocumented as [...] mRNA, LNP-s, No Pre serve, 2-Dose Series ([employer]) 11/03/2020,10/13/2020 Influenza, Whole Virus 07/04/1999,1997,06/03/1997,06/03 PPD 03/21/2023 [...] about the lasix. Did [facility] the [facility]. [facility] he also needs magnesium and potassium. Asking if Dr. Cain wants to keep him on these? If he does, asking it be sent to [facility] Pending Prescriptions: Disp Refills Potassium Chloride [...] M48.061 Dyslipidemia E78.5 PAF (paroxysmal atrial fibrillation) ([facility]) I48.0 Esophageal obstruction K22.2 Hyponatremia E87.1 SIADH (syndrome of inappropriate ADH production) ([facility]) E22.2 Alcohol use Z78.9 Labs: Lab Results [...] 1:00 PM EDT Office Visit Family Practice [facility] [place] [address] [place] [address] Rao Cain III, MD 200 [facility] [place] [address] 07/21/2024 2:00 PM EST Office Visit Nephrology, [facility] [address] [place] [address] Jamie Viera MD 200 [facility] [place] [address] Scheduled Procedures Name Priority Associated Diagnoses Date/Ti [...] 150/90 documented in this encounter Care Teams Painter Chassis Relationship Specialty Start Date End Date Rao Cain III, MD [address] [place] [address] PCP - General Family Medicine 10/21/18 documented as of this encounter
--- OUTSIDE RECORDS SUMMARY | 2023-11-23 23:40 | External Medical Summary | Summary of Care ---
Author Name Unknown Organization [facility] Address [address] [place] [address] Phone [phone] Care Team Providers Care Leather Colorer Name Role Phone Mitchell ROMAN MD, Jerry Cerda Primary Care Provider [phone] Reason for Visit * Reason Onset Date Comments Order Request 10/22/2023 Advice 10/22/2023 Encounter Details Date Type Department Care Team (Late st Contact Info) Description 10/22/2023 Telephone Family Practice [facility] 200 [facility] [place] [address] Jerry Medrano III, MD 200 [place] [address] Order Request; Advice Allergies No known active [...] mRNA, LNP-s, No Pre serve, 2-Dose Series ([employer]) 11/03/2020,10/13/2020 Influenza, Whole Virus 07/04/1999,1997,06/03/1997,06/03 PPD 03/21/2023 [...] encounter Miscellaneous Notes * Addendum Note - Thu Holm LPN - 11/15/2023 4:27 PM EDTAddended by: THU HOLM on: 11/15/2023 04:27 PM Modules accepted: Orders * Telephone Encounter - Thu Holm LPN - 11/15/2023 4:10 PM EDT Hernandez from [employer] is calling. States that the insurance will [...] spouse Xiomy is calling and reports that [facility] received the DME but needs additional. Called [employer], spoke with Hernandez. She will call back [...] length of need for the wheel chair. ([phone]) Please Fax new order to [phone] * Telephone Encounter - Mary Jane Barreto [...] completed at? Medical Fax Number, if applicable: [phone] Patient did have prescription written on 10/02/2023 [...] 1:00 PM EDT Office Visit Family Practice [facility] 200 [facility] [place] [address] Jerry Medrano III, MD 200 [facility] [place] [address] 07/21/2024 2:00 PM EST Office Visit Nephrology, [facility] 200 [facility] [place] [address] Jamie Viera MD 200 [facility] [place] [address] Scheduled Procedures Name Priority Associated Diagnoses Date/Ti [...] 02/09/2017, 01/27/2015, 07/21/2003 Zoster Vaccines Completed 10/25/2021, 0410/2018, 07/09/2018, Additional history exists Influenza Vaccine (FLU [...] fatigue documented in this encounter Care Teams Leather Colorer Relationship Specialty Start Date End Date Jerry Medrano III, MD [address] [place] [address] PCP - General Family Medicine 10/21/18 documented as of this encounter
--- OUTSIDE RECORDS SUMMARY | 2023-11-23 23:40 | External Medical Summary | Summary of Care ---
Author Name Unknown Organization [facility] Address [address] [place] [address] Phone [phone] Care Team Providers Care Test Developer Name Role Phone Mitchell ROMAN MD, Rao Cerda Primary Care Provider [phone] Reason for Visit * Reason Onset Date Comments Advice 11/12/2023 Encounter Details Date Type Department Care Team (Late st Contact Info) Description 11/12/2023 Telephone Family Practice [facility] 200 [facility] [place] [address] Rao Cain III, MD 200 [facility] [place] [address] Advice Allergies No known active allergiesdocumented as [...] mRNA, LNP-s, No Pre serve, 2-Dose Series ([employer]) 11/03/2020,10/13/2020 Influenza, Whole Virus 07/04/1999,1997,06/03/1997,06/03 PPD 03/21/2023 [...] to move and is currently residing in [facility]. Is asking if another renal function panel [...] he does, asking it be sent to [facility] Pending Prescriptions: Disp Refills Potassium Chloride [...] 1:00 PM EDT Office Visit Family Practice [facility] 200 [facility] [place] [address] Rao Cain III, MD 200 [facility] [place] [address] 07/21/2024 2:00 PM EST Office Visit Nephrology, [facility] [address] [facility] [place] [address] Jamie Viera MD 200 [facility] [place] [address] Scheduled Procedures Name Priority Associated Diagnoses Date/Ti [...] 150/90 documented in this encounter Care Teams Test Developer Relationship Specialty Start Date End Date Rao Cain III, MD [address] [place], [place] [address] PCP - General Family Medicine 10/21/18 documented as of this encounter
--- OUTSIDE RECORDS SUMMARY | 2023-11-23 23:40 | External Medical Summary | Summary of Care ---
Author Name Unknown Organization [facility] Address [address] [place] [address] Phone [phone] Care Team Providers Care Stitch Marker Name Role Phone Mitchell ROMAN MD, Jerry Cerda Primary Care Provider [phone] Reason for Visit * Reason Onset Date Comments Medication Refill 11/13/2023 Status Check 11/13/2023 Encounter Details Date Type Department Care Team (Late st Contact Info) Description 11/13/2023 Refill Family Practice [facility] 200 [facility] [place] [address] Jerry Medrano III, MD 200 [place] [address] HTN, goal below 150/90; Hyponatremia Allergies No [...] mRNA, LNP-s, No Pre serve, 2-Dose Series ([employer]) 11/03/2020,10/13/2020 PPD 03/21/2023 Pneumococcal Conjugate Vacc, 13 [...] (Lasix) . Caller can be reached at [phone]. Thank you, Elyse Broderick CPhT Vulcan Crewmember II Centralized Clinical Pharmacy Services (CCPS) (Formerly Telepharmacy) 11/14/2023,11:30 AM * Telephone Encounter - Dianne Eldridge tray casting machine operator - 11/13/2023 12:16 PM EDT Did you pend patient's preferred pharmacy and medication before forwarding?yes Pharmacy: [id number] [address] [facility] Pending Prescriptions: Disp Refills Magnesium Oxide 400 [...] State Keiko Atkins [address] [place] [address] Mitchell IIIJerry MD [address] [place] [address] 07/21/2024 2:00 PM EST Office Visit Nephrology, [facility] 200 [facility] [place] [address] Jamie Viera MD 200 [facility] [place] [address] Scheduled Procedures Name Priority Associated Diagnoses Date/Ti [...] hyponatremia documented in this encounter Care Teams Stitch Marker Relationship Specialty Start Date End Date Jerry Medrano III, MD 200 [facility] [place] [address] PCP - General Family Medicine 10/21/18 documented as of this encounter
--- OUTSIDE RECORDS SUMMARY | 2023-11-23 23:40 | External Medical Summary | Summary of Care ---
Author Name Unknown Organization [facility] Address [address] [place] [address] Phone [phone] Care Team Providers Care Appointment Coordinator Name Role Phone Mitchell ROMAN MD, Jerry Cerda Primary Care Provider [phone] Reason for Visit * Reason Onset Date Comments Order Request 10/22/2023 Advice 10/22/2023 Encounter Details Date Type Department Care Team (Late st Contact Info) Description 10/22/2023 Telephone Family Practice [facility] 200 [facility] [place] [address] Jerry Medrano III, MD 200 [place] [address] Order Request; Advice Allergies No known active [...] mRNA, LNP-s, No Pre serve, 2-Dose Series ([employer]) 11/03/2020,10/13/2020 Influenza, Whole Virus 07/04/1999,1997,06/03/1997,06/03 PPD 03/21/2023 [...] - 11/15/2023 4:10 PM EDT Hernandez from [employer] is calling. States that the insurance will [...] spouse Xiomy is calling and reports that [employer] [facility] received the DME but needs additional. Called [employer], spoke with Hernandez. She will call back [...] as requested. * Telephone Encounter - Merle Daveis OSA - 10/26/2023 4:26 PM EST Natasha from [employer] needs the length of need for the wheel chair. ([phone]) Please Fax new order to [phone] * Telephone Encounter - Mary Jane Barreto [...] completed at? Medical Fax Number, if applicable: [phone] Patient did have prescription written on 10/02/2023 [...] 1:00 PM EDT Office Visit Family Practice [facility] 200 [facility] [place] [address] Jerry Medrano III, MD 200 [facility] [place] [address] 07/21/2024 2:00 PM EST Office Visit Nephrology, [facility] 200 [facility] [place] [address] Jamie Viera MD 200 [facility] [place] [address] Scheduled Procedures Name Priority Associated Diagnoses Date/Ti [...] fatigue documented in this encounter Care Teams Appointment Coordinator Relationship Specialty Start Date End Date Jerry Medrano III, MD [address] [place] [address] PCP - General Family Medicine 10/21/18 documented as of this encounter
--- OUTSIDE RECORDS SUMMARY | 2023-11-23 23:40 | External Medical Summary | Summary of Care ---
Author Name Unknown Organization [facility] Address [address] [place] [address] Phone [phone] Care Team Providers Care Network Project Manager Name Role Phone Mitchell ROMAN MD, Rao Cerda Primary Care Provider [phone] Reason for Visit * Reason Onset Date Comments Advice 11/12/2023 Encounter Details Date Type Department Care Team (Late st Contact Info) Description 11/12/2023 Telephone Family Practice [facility] 200 [facility] [place] [address] Rao Cain III, MD 200 [facility] [place] [address] Advice Allergies No known active allergiesdocumented as [...] mRNA, LNP-s, No Pre serve, 2-Dose Series ([employer]) 11/03/2020,10/13/2020 Influenza, Whole Virus 07/04/1999,1997,06/03/1997,06/03 PPD 03/21/2023 [...] encounter Miscellaneous Notes * Addendum Note - Deepak Arriaga, PIO - 11/16/2023 4:39 PM EDTAddended by: DEEPAK ARRIAGA on: 11/16/2023 04:39 PM Modules accepted: Orders * Telephone Encounter - Deepak Arriaga LPN - 11/16/2023 4:33 PM EDT Patient's [...] to move and is currently residing in [facility]. Is asking if another renal function [...] accepted: Orders * Addendum Note - Alisha Strong LPN - 11/13/2023 9:07 AM EDTAddended by: ALISHA STRONG on: 11/13/2023 09:07 AM Modules accepted: Orders * Telephone Encounter - Alisha Strong LPN - 11/13/2023 8:59 AM EDT Patient's is calling. Has not heard back about the lasix. Did receive the metoprolol. [facility] told her he also needs magnesium and potassium. Asking if Dr. Cain wants to keep him on these? If he does, asking it be sent to [facility] Pending Prescriptions: Disp Refills Potassium Chloride ER [...] M48.061 Dyslipidemia E78.5 PAF (paroxysmal atrial fibrillation) ([facility]) I48.0 Esophageal obstruction K22.2 Hyponatremia E87.1 SIADH (syndrome of inappropriate ADH production) ([facility]) E22.2 Alcohol use Z78.9 Labs: Lab Results [...] 09:47 AM * Telephone Encounter - Deepak Arriaga LPN - 11/12/2023 10:31 AM EDT [...] EDT Office Visit Family Practice [facility] [place] [address] [place] [address] Rao Cain III, MD [address] [place] [address] 07/21/2024 2:00 PM EST Office Visit Nephrology, [facility] [address] [place] [address] Jamie Viera MD [address] [place] [address] Scheduled Procedures Name Priority Associated Diagnoses Date/Ti [...] hyponatremia documented in this encounter Care Teams Network Project Manager Relationship Specialty Start Date End Date Rao Cain III, MD [address] [place] [address] PCP - General Family Medicine 10/21/18 documented as of this encounter
--- OUTSIDE RECORDS SUMMARY | 2023-11-23 23:40 | External Medical Summary | Summary of Care ---
Author Name Unknown Organization [facility] Address [address] [place] [address] Phone [phone] Care Team Providers Care Loom Mechanic Name Role Phone Mitchell ROMAN MD, Rao Cerda Primary Care Provider [phone] Reason for Visit * Reason Onset Date Comments Advice 11/12/2023 Encounter Details Date Type Department Care Team (Late st Contact Info) Description 11/12/2023 Telephone Family Practice [facility] 200 [facility] [place] [address] Rao Cain III, MD 200 [facility] [place] [address] Advice Allergies No known active allergiesdocumented as [...] mRNA, LNP-s, No Pre serve, 2-Dose Series ([employer]) 11/03/2020,10/13/2020 Influenza, Whole Virus 07/04/1999,1997,06/03/1997,06/03 PPD 03/21/2023 [...] about the lasix. Did receive the metoprolol. [facility] told her he also needs magnesium and potassium. Asking if Dr. Cain wants to keep him on these? If he does, asking it be sent to [facility] Pending Prescriptions: Disp Refills Potassium Chloride [...] E78.5 PAF (paroxysmal atrial fibrillation) ([facility]) I48.0 Esophageal obstruction K22.2 Hyponatremia E87.1 SIADH (syndrome of inappropriate ADH production) ([facility]) E22.2 Alcohol use Z78.9 Labs: [...] EDT Office Visit Family Practice [facility] [place] [address] [place] [address] [address] Rao Cain III, MD [address] [place] [address] 07/21/2024 2:00 PM EST Office Visit Nephrology, [facility] [address] [place] [address] Jamie Viera MD [address] [place] [address] Scheduled Procedures Name Priority Associated Diagnoses Date/Ti me COLONOSCOPY FLEXIBLE PROXIMAL DIAGNOSTIC Recall History of colon polyps Health Maintenance Due Date Last Done Comments DTaP,Tdap,and Td Vaccines (2 - Td or Tdap) 10/11/2022 10/11/2012, 10/11/2012, 2007 Depression Screening 12/29/2022 12/29/2021 COVID-19 Vaccine (3 - season) 2023 11/03/2020, 11/03/2020, 10/13/2020, Additional [...] 150/90 documented in this encounter Care Teams Loom Mechanic Relationship Specialty Start Date End Date Rao Cain III, MD [address] [place] [address] [address] PCP - General Family Medicine 10/21/18 documented as of this encounter
--- OUTSIDE RECORDS SUMMARY | 2023-11-23 23:41 | External Medical Summary | Summary of Care ---
Author Name Unknown Organization [facility] Address [address] [place] [address] Phone [phone] Care Team Providers Care Head Tennis Professional Name Role Phone Mitchell ROMAN MD, Jerry Cerda Primary Care Provider [phone] Reason for Visit * Reason Onset Date Comments Advice 10/31/2023 Order Request 10/31/2023 Encounter Details Date Type Department Care Team (Late st Contact Info) Description 10/31/2023 Telephone Family Practice [facility] 200 [facility] [place] [address] Jerry Medrano III, MD [address] [place] [address] Advice; Order Request Allergies No known active allergiesdocumented as of this encounter (statuses as of 11/14/2023) Medications Medication Sig Dispensed Refills Start Date [...] as of this encounter (statuses as of 11/14/2023) Active Problems Problem Noted Date Diagnosed Date Hyponatremia 09/20/2023 SIADH (syndrome of inappropriate ADH production) 09/20/2023 Alcohol use 09/20/2023 Esophageal obstruction 09/15/2019 PAF (paroxysmal atrial fibrillation) 08/14/2019 Dyslipidemia 07/17/2018 Lumbar spinal stenosis 09/01/2013 ADVANCE DIRECTIVE INFORMATION 01/06/2005 Overview: No, Advance Directive brochure offered , patient declined. HTN, goal below 140/90 documented as of this encounter (statuses as of 11/14/2023) Resolved Problems Problem Noted Date Diagnosed Date [...] as of this encounter (statuses as of 11/14/2023) Immunizations Name Administration Dates Next Due COVID-19 mRNA, LNP-s, No Pre serve, 2-Dose Series ([employer]) 11/03/2020,10/13/2020 Influenza, Whole Virus 07/04/1999,1997,06/03/1997,06/03 PPD 03/21/2023 [...] encounter Miscellaneous Notes * Telephone Encounter - Shani Fry OSA - 11/14/2023 10:49 AM EDT Natasha from [facility] calling again they still have not received correct script for wheel chair. Please call her back at [phone] * Telephone Encounter - Landy Angelo LPN - 11/07/2023 9:41 AM EST Printed and placed in his bin to sign * Telephone Encounter - Daisy Davis OSA - 11/06/2023 2:25 PM EST Patient calling in to check on the status of previous message. Patient Called after 48 hour timeframe and escalation e-mail was sent to clinic leadership. * Telephone Encounter - Marissa Alva LPN - 11/01/2023 4:38 PM EST New DME order pending. I pulled ambulatory dysfunction from his problem list and added it to the associated dx. Please physically sign once electronically signed and hand to a nurse to fax. * Telephone Encounter - Frances Beltran OSA - 10/31/2023 3:40 PM EST Natasha from [facility] Order for wheelchair needs to be fixed Length of need must be added For seat cushion it must state gel foam cushion *There is no back cushion for [place] Must specify if its standard leg rest or elevated leg rest Fax order to [phone] documented in this encounter Plan of Treatment Upcoming Encounters Date Type Department Care Team (Late st Contact Info) Description 12/06/2023 1:00 PM EDT Office Visit Family Practice [facility] [address] [place] [address] Jerry Medrano III, MD [address] [place] [address] 07/21/2024 2:00 PM EST Office Visit Nephrology, [facility] [address] [place] [address] Jamie Viera MD [address] [place] [address] Scheduled Procedures Name Priority Associated Diagnoses Date/Ti [...] encounter Visit Diagnoses Diagnosis Ambulatory dysfunction- Primary Generalized weakness Other malaise and fatigue documented in this encounter Care Teams Head Tennis Professional Relationship Specialty Start Date End Date Jerry Medrano III, MD [address] [place] [address] PCP - General Family Medicine 10/21/18 documented as of this encounter
--- OUTSIDE RECORDS SUMMARY | 2023-11-23 23:41 | External Medical Summary | Summary of Care ---
Author Name Unknown Organization [facility] Address [address] [place] [address] Phone [phone] Care Team Providers Care Ammonia Box Operator Name Role Phone Mitchell ROMAN MD, Jerry Cerda Primary Care Provider [phone] Reason for Visit * Reason Onset Date Comments Advice 11/12/2023 Encounter Details Date Type Department Care Team (Late st Contact Info) Description 11/12/2023 Telephone Family Practice [facility] [address] [facility] [place] [address] Jerry Medrano III, MD [address] [facility] [place] [address] Advice Allergies No known active allergiesdocumented as of this encounter (statuses as of 11/12/2023) Medications Medication Sig Dispensed Refills Start Date [...] at bedtime 90 Capsule 0 10/04/2023 Active Magnesium Oxide 400 MG Oral Tablet Take 1 Tablet by mouth in the morning and 1 Tablet before bedtime. 60 Tablet 0 10/04/2023 Active metFORMIN HCl 500 MG Oral Tablet (Glucophage)Indica tions:Prediabetes Take 1 Tablet by mouth every afternoon. With supper. 30 Tablet 0 10/04/2023 Active Ocuvite-Lutein Oral Tablet Take 1 Tablet by mouth in the morning. 30 Tablet 0 10/04/2023 Active Potassium Chloride ER 20 MEQ Oral [...] before bedtime. 180 Tablet 1 11/12/2023 Active Metoprolol Succinate ER 50 MG Oral Tablet Extended Release 24 Hour (Toprol XL)Indications:HTN , goal below 150/90 Take 1 Tablet by mouth in the morning and 1 Tablet before bedtime. 60 Tablet 0 11/08/2023 Discontinue d(Refill) documented as of this encounter (statuses as of 11/12/2023) Active Problems Problem Noted Date Diagnosed Date Hyponatremia 09/20/2023 SIADH (syndrome of inappropriate ADH production) 09/20/2023 Alcohol use 09/20/2023 Esophageal obstruction 09/15/2019 PAF (paroxysmal atrial fibrillation) 08/14/2019 Dyslipidemia 07/17/2018 Lumbar spinal stenosis 09/01/2013 ADVANCE DIRECTIVE INFORMATION 01/06/2005 Overview: No, Advance Directive brochure offered , patient declined. HTN, goal below 140/90 documented as of this encounter (statuses as of 11/12/2023) Resolved Problems Problem Noted Date Diagnosed Date [...] as of this encounter (statuses as of 11/12/2023) Immunizations Name Administration Dates Next Due COVID-19 mRNA, LNP-s, No Pre serve, 2-Dose Series ([employer]) 11/03/2020,10/13/2020 PPD 03/21/2023 Pneumococcal Conjugate Vacc, 13 [...] Notes * Telephone Encounter - Lianne Arriaga Yuridia, PIO - 11/12/2023 10:31 AM EDT Patient's calling [...] going to happen again. Asking if Dr. Medrano would re-evaluated this and see if he could go down to 1 Lasix or if he should stay at 2. Please advise. documented in this encounter Plan of Treatment Upcoming Encounters Date Type Department Care Team (Late st Contact Info) Description 12/06/2023 1:00 PM EDT Office Visit Family Practice [facility] [address] [facility] [place] [address] Jerry Medrano III, MD [address] [facility] [place] [address] 07/21/2024 2:00 PM EST Office Visit Nephrology, [facility] [address] [facility] [place] [address] Jamie Viera MD [address] [facility] [place] [address] Scheduled Procedures Name Priority Associated Diagnoses Date/Ti [...] 150/90 documented in this encounter Care Teams Ammonia Box Operator Relationship Specialty Start Date End Date Jerry Medrano III, MD 200 [place] [address] PCP - General Family Medicine 10/21/18 documented as of this encounter
--- OUTSIDE RECORDS SUMMARY | 2023-11-23 23:41 | External Medical Summary | Summary of Care ---
Author Name Unknown Organization [facility] Address [address] [place] [address] Phone [phone] Care Team Providers Care Food Server Name Role Phone Mitchell ROMAN MD, Jerry Cerda Primary Care Provider [phone] Reason for Visit * Reason Onset Date Comments Order Request 10/22/2023 Advice 10/22/2023 Encounter Details Date Type Department Care Team (Late st Contact Info) Description 10/22/2023 Telephone Family Practice [facility] 200 [facility] [place] [address] Jerry Medrano III, MD 200 [place] [address] Order Request; Advice Allergies No known active allergiesdocumented as of this encounter (statuses as of 10/26/2023) Medications Medication Sig Dispensed Refills Start Date [...] at bedtime 90 Capsule 0 10/04/2023 Active Ketoconazole 2 % External CreamIndications:Se borrheic dermatitis Apply topically to affected area 2 times a day. Apply to face/scalp 60 g 0 10/04/2023 11/03/2023 Active Furosemide 40 MG Oral Tablet (Lasix)Indications: Hyponatremia Take 1 Tablet by mouth 2 times a day in the morning and at noon. 60 Tablet 0 10/04/2023 Active Magnesium Oxide 400 MG Oral Tablet Take 1 Tablet by mouth in the morning and 1 Tablet before bedtime. 60 Tablet 0 10/04/2023 Active metFORMIN HCl 500 MG Oral Tablet (Glucophage)Indicat ions:Prediabetes Take 1 Tablet by mouth every afternoon. With supper. 30 Tablet 0 10/04/2023 Active Metoprolol Succinate ER 50 MG Oral Tablet Extended Release 24 Hour (Toprol XL)Indications:HTN, goal below 150/90 Take 1 Tablet by mouth in the morning and 1 Tablet before bedtime. 60 Tablet 0 10/04/2023 Active Ocuvite-Lutein Oral Tablet [...] mouth 2 times a day. 0 Active documented as of this encounter (statuses as of 10/26/2023) Active Problems Problem Noted Date Diagnosed Date Hyponatremia 09/20/2023 SIADH (syndrome of inappropriate ADH production) 09/20/2023 Alcohol use 09/20/2023 Esophageal obstruction 09/15/2019 PAF (paroxysmal atrial fibrillation) 08/14/2019 Dyslipidemia 07/17/2018 Lumbar spinal stenosis 09/01/2013 ADVANCE DIRECTIVE INFORMATION 01/06/2005 Overview: No, Advance Directive brochure offered , patient declined. HTN, goal below 140/90 documented as of this encounter (statuses as of 10/26/2023) Resolved Problems Problem Noted Date Diagnosed Date [...] as of this encounter (statuses as of 10/26/2023) Immunizations Name Administration Dates Next Due COVID-19 mRNA, LNP-s, No Pre serve, 2-Dose Series ([employer]) 11/03/2020,10/13/2020 Influenza, Whole Virus 07/04/1999,1997,06/03/1997,06/03 PPD [...] encounter Miscellaneous Notes * Telephone Encounter - Merle Davies OSA - 10/26/2023 4:26 PM EST Natasha from [facility] needs the length of need for the wheel chair. ([phone]) Please Fax new order to [phone] * Telephone Encounter - Kimberly Fermin LPN - 10/24/2023 10:16 AM EST Dme was printed and faxed to [facility] as requested. * Telephone Encounter - Jeffrey Vela DO - 10/23/2023 4:45 PM EST Order signed, please fax * Telephone Encounter - Kimberly Fermin LPN - 10/23/2023 11:39 AM EST [...] completed at? Medical Fax Number, if applicable: [phone] Patient did have prescription written on 10/02/2023 [...] 1:00 PM EDT [facility] [place] 200 [facility] [place] [address] Jerry Medrano III, MD 200 [facility] [place] [address] 07/21/2024 2:00 PM EST Office Visit Nephrology, [facility] 200 [facility] [place] [address] Jamie Viera MD 200 [facility] [place] [address] Scheduled Procedures Name Priority Associated Diagnoses Date/Ti [...] fatigue documented in this encounter Care Teams Food Server Relationship Specialty Start Date End Date Jerry Medrano III, MD 200 [place] [address] PCP - General Family Medicine 10/21/18 documented as of this encounter
--- OUTSIDE RECORDS SUMMARY | 2023-11-23 23:41 | External Medical Summary | Summary of Care ---
Author Name Unknown Organization [facility] Address [address] [place] [address] Phone [phone] Care Team Providers Care Diabetes Solutions Specialist Name Role Phone Mitchell ROMAN MD, Jerry Cerda Primary Care Provider [phone] Reason for Visit * Reason Onset Date Comments Advice 10/31/2023 Order Request 10/31/2023 Encounter Details Date Type Department Care Team (Late st Contact Info) Description 10/31/2023 Telephone Family Practice [facility] 200 [place] [address] Jerry Medrano III, MD 200 [place] [address] Advice; Order Request Allergies No known active allergiesdocumented as of this encounter (statuses as of 11/07/2023) Medications Medication Sig Dispensed Refills Start Date [...] 10/04/2023 Active Gabapentin 100 MG Oral Capsule (Neurontin)Indica [...] day. 0 Active Ketoconazole 2 % External CreamIndications: Seborrheic dermatitis Apply topically to affected area 2 times a day. Apply to face/scalp 60 g 0 10/04/2023 11/03/19 24 Furosemide 40 MG Oral Tablet (Lasix)Indication s:Hyponatremia Take 1 Tablet by mouth 2 times a day in the morning and at noon. 60 Tablet 0 10/04/2023 11/07/19 24 Discontinued documented as of this encounter (statuses as of 11/07/2023) Active Problems Problem Noted Date Diagnosed Date Hyponatremia 09/20/2023 SIADH (syndrome of inappropriate ADH production) 09/20/2023 Alcohol use 09/20/2023 Esophageal obstruction 09/15/2019 PAF (paroxysmal atrial fibrillation) 08/14/2019 Dyslipidemia 07/17/2018 Lumbar spinal stenosis 09/01/2013 ADVANCE DIRECTIVE INFORMATION 01/06/2005 Overview: No, Advance Directive brochure offered , patient declined. HTN, goal below 140/90 documented as of this encounter (statuses as of 11/07/2023) Resolved Problems Problem Noted Date Diagnosed Date [...] as of this encounter (statuses as of 11/07/2023) Immunizations Name Administration Dates Next Due COVID-19 mRNA, LNP-s, No Pre serve, 2-Dose Series ([employer]) 11/03/2020,10/13/2020 Influenza, Whole Virus 07/04/1999,1997,06/03/1997,06/03 PPD 03/21/2023 [...] encounter Miscellaneous Notes * Telephone Encounter - Landy Angelo LPN [...] or elevated leg rest Fax order to [phone] documented in this encounter Plan of Treatment Upcoming Encounters Date Type Department Care Team (Late st Contact Info) Description 12/06/2023 1:00 PM EDT Office Visit Family Practice [address] [place] [address] Jerry Medrano III, MD [address] [place] [address] [place] [address] 07/21/2024 2:00 PM EST Office Visit Nephrology, [address] [place] [address] Jamie Viera MD [address] [place] [address] [place] [address] Scheduled Procedures Name Priority Associated Diagnoses Date/Ti [...] fatigue documented in this encounter Care Teams Diabetes Solutions Specialist Relationship Specialty Start Date End Date Jerry Medrano III, MD 200 [place] [address] PCP - General Family Medicine 10/21/18 documented as of this encounter
--- OUTSIDE RECORDS SUMMARY | 2023-11-23 23:41 | External Medical Summary | Summary of Care ---
Author Name Unknown Organization [facility] Address [address] [place] [address] Phone [phone] Care Team Providers Care Tube Winder Name Role Phone Mitchell ROMAN MD, Jerry Cerda Primary Care Provider [phone] Reason for Visit * Reason Onset Date Comments Order Request 10/22/2023 Advice 10/22/2023 Encounter Details Date Type Department Care Team (Late st Contact Info) Description 10/22/2023 Telephone Family Practice [facility] 200 [facility] [place] [address] Jerry Medrano III, MD 200 [place] [address] Order Request; Advice Allergies No known active allergiesdocumented as of this encounter (statuses as of 10/29/2023) Medications Medication Sig Dispensed Refills Start Date [...] as of this encounter (statuses as of 10/29/2023) Active Problems Problem Noted Date Diagnosed Date Hyponatremia 09/20/2023 SIADH (syndrome of inappropriate ADH production) 09/20/2023 Alcohol use 09/20/2023 Esophageal obstruction 09/15/2019 PAF (paroxysmal atrial fibrillation) 08/14/2019 Dyslipidemia 07/17/2018 Lumbar spinal stenosis 09/01/2013 ADVANCE DIRECTIVE INFORMATION 01/06/2005 Overview: No, Advance Directive brochure offered , patient declined. HTN, goal below 140/90 documented as of this encounter (statuses as of 10/29/2023) Resolved Problems Problem Noted Date Diagnosed Date [...] as of this encounter (statuses as of 10/29/2023) Immunizations Name Administration Dates Next Due COVID-19 mRNA, LNP-s, No Pre serve, 2-Dose Series ([employer]) 11/03/2020,10/13/2020 Influenza, Whole Virus 07/04/1999,1997,06/03/1997,06/03 PPD 03/21/2023 [...] length of need for the wheel chair. ([id number]) Please Fax new order to [phone] * Telephone Encounter - Kimberly Fermin LPN [...] completed at? Medical Fax Number, if applicable: [phone] Patient did have prescription written on 10/02/2023 [...] 1:00 PM EDT [facility] [place] 200 [facility] [place] [address] Jerry Medrano III, MD 200 [facility] [place] [address] 07/21/2024 2:00 PM EST Office Visit Nephrology, [facility] 200 [facility] [place] [address] Jamie Viera MD 200 [facility] [place] [address] Scheduled Procedures Name Priority Associated Diagnoses Date/Ti [...] fatigue documented in this encounter Care Teams Tube Winder Relationship Specialty Start Date End Date Jerry Medrano III, MD 200 [place] [place] [address] PCP - General Family Medicine 10/21/18 documented as of this encounter
--- OUTSIDE RECORDS SUMMARY | 2023-11-23 23:41 | External Medical Summary | Summary of Care ---
Author Name Unknown Organization [facility] Address [address] [place] [address] Phone [phone] Care Team Providers Care Web Producer Name Role Phone Mitchell ROMAN MD, Jerry Cerda Primary Care Provider [phone] Reason for Visit * Reason Onset Date Comments Advice 10/31/2023 Order Request 10/31/2023 Encounter Details Date Type Department Care Team (Late st Contact Info) Description 10/31/2023 Telephone Family Practice [facility] 200 [facility] [place] [address] Jerry Medrano III, MD [address] [place] [address] Advice; Order Request Allergies No known active allergiesdocumented as of this encounter (statuses as of 11/06/2023) Medications Medication Sig Dispensed Refills Start Date [...] at bedtime 90 Capsule 0 10/04/2023 Active Furosemide 40 MG Oral Tablet (Lasix)Indications :Hyponatremia Take 1 Tablet by mouth 2 times [...] day. 0 Active Ketoconazole 2 % External CreamIndications:S eborrheic dermatitis Apply topically to affected area 2 times a day. Apply to face/scalp 60 g 0 10/04/2023 11/03/2023 documented as of this encounter (statuses as of 11/06/2023) Active Problems Problem Noted Date Diagnosed Date Hyponatremia 09/20/2023 SIADH (syndrome of inappropriate ADH production) 09/20/2023 Alcohol use 09/20/2023 Esophageal obstruction 09/15/2019 PAF (paroxysmal atrial fibrillation) 08/14/2019 Dyslipidemia 07/17/2018 Lumbar spinal stenosis 09/01/2013 ADVANCE DIRECTIVE INFORMATION 01/06/2005 Overview: No, Advance Directive brochure offered , patient declined. HTN, goal below 140/90 documented as of this encounter (statuses as of 11/06/2023) Resolved Problems Problem Noted Date Diagnosed Date [...] as of this encounter (statuses as of 11/06/2023) Immunizations Name Administration Dates Next Due COVID-19 mRNA, LNP-s, No Pre serve, 2-Dose Series ([email or web address]) 11/03/2020,10/13/2020 Influenza, Whole Virus 07/04/1999,1997,06/03/1997,06/03 PPD 03/21/2023 [...] encounter Miscellaneous Notes * Telephone Encounter - Daisy Davis OSA - 11/06/2023 2:25 PM EST Patient calling in to check on the status of previous message. Patient Called within 48 hour timeframe. Reminded patient of 48 hour turn-around time. * Telephone Encounter - Marissa Alva LPN [...] or elevated leg rest Fax order to [phone] documented in this encounter Plan of Treatment Upcoming Encounters Date Type Department Care Team (Late st Contact Info) Description 12/06/2023 1:00 PM EDT Office Visit Family Practice [facility] [address] [place] [address] Jerry Medrano III, MD 200 [facility] [place] [address] 07/21/2024 2:00 PM EST Office Visit Nephrology, [facility] 200 [facility] [place] [address] Jamie Viera MD [address] [facility] [place] [address] Scheduled Procedures Name Priority Associated Diagnoses Date/Ti [...] fatigue documented in this encounter Care Teams Web Producer Relationship Specialty Start Date End Date Jerry Medrano III, MD [address] [place] [address] PCP - General Family Medicine 10/21/18 documented as of this encounter
--- OUTSIDE RECORDS SUMMARY | 2023-11-23 23:41 | External Medical Summary | Summary of Care ---
Author Name Unknown Organization [facility] Address [address] [place] [address] Phone [phone] Care Team Providers Care Primary Health Organisation Manager Name Role Phone Mitchell ROMAN MD, Rao Cerda Primary Care Provider [phone] Reason for Visit * Reason Onset Date Comments Advice 11/12/2023 Encounter Details Date Type Department Care Team (Late st Contact Info) Description 11/12/2023 Telephone Family Practice [facility] 200 [facility] [place] [address] Rao Cain III, MD 200 [facility] [place] [place] [address] Advice Allergies No known active allergiesdocumented as of this encounter (statuses as of 11/13/2023) Medications Medication Sig Dispensed Refills Start Date [...] as of this encounter (statuses as of 11/13/2023) Active Problems Problem Noted Date Diagnosed Date Hyponatremia 09/20/2023 SIADH (syndrome of inappropriate ADH production) 09/20/2023 Alcohol use 09/20/2023 Esophageal obstruction 09/15/2019 PAF (paroxysmal atrial fibrillation) 08/14/2019 Dyslipidemia 07/17/2018 Lumbar spinal stenosis 09/01/2013 ADVANCE DIRECTIVE INFORMATION 01/06/2005 Overview: No, Advance Directive brochure offered , patient declined. HTN, goal below 140/90 documented as of this encounter (statuses as of 11/13/2023) Resolved Problems Problem Noted Date Diagnosed Date [...] as of this encounter (statuses as of 11/13/2023) Immunizations Name Administration Dates Next Due COVID-19 mRNA, LNP-s, No Pre serve, 2-Dose Series ([employer]) 11/03/2020,10/13/2020 Influenza, Whole Virus 07/04/1999,1997,06/03/1997,06/03 PPD 03/21/2023 [...] he does, asking it be sent to [facility] Pending Prescriptions: Disp Refills Potassium Chloride ER [...] E78.5 PAF (paroxysmal atrial fibrillation) ([facility]) I48.0 Esophageal obstruction K22.2 Hyponatremia E87.1 SIADH (syndrome of inappropriate ADH production) ([facility]) E22.2 Alcohol use Z78.9 Labs: Lab [...] 1:00 PM EDT Office Visit Family Practice [facility] [address] [facility] [place] [address] Rao Cain III, MD 200 [facility] [place] [address] 07/21/2024 2:00 PM EST Office Visit Nephrology, [facility] 200 [facility] [place] [address] Jamie Viera MD 200 [facility] [place] [address] Scheduled Procedures Name Priority Associated Diagnoses Date/Ti [...] 150/90 documented in this encounter Care Teams Primary Health Organisation Manager Relationship Specialty Start Date End Date Rao Cain III, MD [address] [place] [address] PCP - General Family Medicine 10/21/18 documented as of this encounter
--- OUTSIDE RECORDS SUMMARY | 2023-11-23 23:41 | External Medical Summary | Summary of Care ---
Author Name Unknown Organization [facility] Address [address] [place] [address] Phone [phone] Care Team Providers Care Top Installer Name Role Phone Mitchell ROMAN MD, Jerry Cerda Primary Care Provider [phone] Reason for Visit * Reason Onset Date Comments Order Request 10/22/2023 Encounter Details Date Type Department Care Team (Late st Contact Info) Description 10/22/2023 Telephone Family Practice [facility] 200 [place] [address] Jerry Medrano III, MD 200 [place] [address] Order Request Allergies No known active allergiesdocumented as of this encounter (statuses as of 10/24/2023) Medications Medication Sig Dispensed Refills Start Date [...] as of this encounter (statuses as of 10/24/2023) Active Problems Problem Noted Date Diagnosed Date Hyponatremia 09/20/2023 SIADH (syndrome of inappropriate ADH production) 09/20/2023 Alcohol use 09/20/2023 Esophageal obstruction 09/15/2019 PAF (paroxysmal atrial fibrillation) 08/14/2019 Dyslipidemia 07/17/2018 Lumbar spinal stenosis 09/01/2013 ADVANCE DIRECTIVE INFORMATION 01/06/2005 Overview: No, Advance Directive brochure offered , patient declined. HTN, goal below 140/90 documented as of this encounter (statuses as of 10/24/2023) Resolved Problems Problem Noted Date Diagnosed Date [...] as of this encounter (statuses as of 10/24/2023) Immunizations Name Administration Dates Next Due COVID-19 [...] encounter Miscellaneous Notes * Telephone Encounter - Kimberly Fermin LPN [...] completed at? Medical Fax Number, if applicable: [phone] Patient did have prescription written on 10/02/2023 [...] 1:00 PM EDT Office Visit Family Practice [facility] [place] [address] [place] [address] Mitchell IIIJerry MD [address] [place] [address] 07/21/2024 2:00 PM EST Office Visit Nephrology, [facility] [address] [place] [address] [address] Jamie Viera MD 200 [facility] [place] [address] Scheduled Procedures Name Priority Associated Diagnoses Date/Ti [...] fatigue documented in this encounter Care Teams Top Installer Relationship Specialty Start Date End Date Jerry Medrano III, MD 200 [place] [address] PCP - General Family Medicine 10/21/18 documented as of this encounter
--- OUTSIDE RECORDS SUMMARY | 2023-11-23 23:41 | External Medical Summary | Summary of Care ---
Author Name Unknown Organization [facility] Address [address] [place] [address] Phone [phone] Care Team Providers Care Recorder Helper Seismograph Name Role Phone Mitchell ROMAN MD, Jerry Cerda Primary Care Provider [phone] Reason for Visit * Reason Onset Date Comments Medication Refill 11/08/2023 Encounter Details Date Type Department Care Team (Late st Contact Info) Description 11/08/2023 Refill Family Practice [facility] 200 [facility] [place] [address] Jerry Medrano III, MD 200 [place] [address] HTN, goal below 150/90 Allergies No known active allergiesdocumented as of this encounter (statuses as of 11/08/2023) Medications Medication Sig Dispensed Refills Start Date [...] Tablet before bedtime. 60 Tablet 0 11/08/2023 Active Metoprolol Succinate ER 50 MG Oral Tablet Extended Release 24 Hour (Toprol XL)Indications:HTN , goal below 150/90 Take 1 Tablet by mouth in the morning and 1 Tablet before bedtime. 60 Tablet 0 10/04/2023 Discontinue d(Refill) documented as of this encounter (statuses as of 11/08/2023) Active Problems Problem Noted Date Diagnosed Date Hyponatremia 09/20/2023 SIADH (syndrome of inappropriate ADH production) 09/20/2023 Alcohol use 09/20/2023 Esophageal obstruction 09/15/2019 PAF (paroxysmal atrial fibrillation) 08/14/2019 Dyslipidemia 07/17/2018 Lumbar spinal stenosis 09/01/2013 ADVANCE DIRECTIVE INFORMATION 01/06/2005 Overview: No, Advance Directive brochure offered , patient declined. HTN, goal below 140/90 documented as of this encounter (statuses as of 11/08/2023) Resolved Problems Problem Noted Date Diagnosed Date [...] as of this encounter (statuses as of 11/08/2023) Immunizations Name Administration Dates Next Due COVID-19 [...] encounter Miscellaneous Notes * Telephone Encounter - Ilene Eubanks PA-C - 11/08/2023 1:05 PM ESTSigned Prescriptions: Disp Refills Metoprolol Succinate ER 50 MG Oral Tablet *60 Tab*0 Sig: Take 1 Tablet by mouth in the morning and 1 Tablet before bedtime. Authorizing Provider: ILENE EUBANKS * Telephone Encounter - Kira Holm LPN - 11/08/2023 10:15 AM EST Pending Prescriptions: Disp Refills Metoprolol Succinate ER 50 MG Oral Tablet*60 Tab*0 Sig: Take 1 Tablet by mouth in the morning and 1 Tablet before bedtime. Last Visit: 07/18/2023 (in office), 12/06/2022 (telemedicine) Next Visit: 12/06/2023 Last date the medication was ordered: 10/04/23 Patient Active Problem List Diagnosis Code HTN, goal below 140/90 I10 ADVANCE DIRECTIVE INFORMATION Lumbar spinal stenosis M48.061 Dyslipidemia E78.5 PAF (paroxysmal atrial fibrillation) ([facility]) I48.0 Esophageal obstruction K22.2 Hyponatremia E87.1 SIADH (syndrome of inappropriate ADH production) ([facility]) E22.2 Alcohol use Z78.9 Labs: Lab [...] A1C - [facility] 5.5 02/01/2018 09:47 AM documented in this encounter Plan of Treatment Upcoming Encounters Date Type Department Care Team (Late st Contact Info) Description 12/06/2023 1:00 PM EDT Office Visit Family Practice [address] [place] [address] Jerry Medrano III, MD 200 [facility] [place] [address] 07/21/2024 2:00 PM EST Office Visit Nephrology, [address] [place] [address] Jamie Viera MD [address] [place] [address] [place] [address] Scheduled Procedures Name Priority Associated Diagnoses Date/Ti [...] 150/90 documented in this encounter Care Teams Recorder Helper Seismograph Relationship Specialty Start Date End Date Jerry Medrano III, MD [address] [place] [address] PCP - General Family Medicine 10/21/18 documented as of this encounter
--- OUTSIDE RECORDS SUMMARY | 2023-11-23 23:41 | External Medical Summary | Summary of Care ---
Author Name Unknown Organization [facility] Address [address] [place] [address] Phone [phone] Care Team Providers Care Electrical Parts Reconditioner Name Role Phone Mitchell ROMAN MD, Jerry Cerda Primary Care Provider [phone] Reason for Visit * Reason Onset Date Comments Order Request 10/22/2023 Advice 10/22/2023 Encounter Details Date Type Department Care Team (Late st Contact Info) Description 10/22/2023 Telephone Family Practice [facility] 200 [place] [address] Jerry Medrano III, MD 200 [place] [address] Order Request; Advice Allergies No known active allergiesdocumented as of this encounter (statuses as of 11/05/2023) Medications Medication Sig Dispensed Refills Start Date [...] as of this encounter (statuses as of 11/05/2023) Active Problems Problem Noted Date Diagnosed Date Hyponatremia 09/20/2023 SIADH (syndrome of inappropriate ADH production) 09/20/2023 Alcohol use 09/20/2023 Esophageal obstruction 09/15/2019 PAF (paroxysmal atrial fibrillation) 08/14/2019 Dyslipidemia 07/17/2018 Lumbar spinal stenosis 09/01/2013 ADVANCE DIRECTIVE INFORMATION 01/06/2005 Overview: No, Advance Directive brochure offered , patient declined. HTN, goal below 140/90 documented as of this encounter (statuses as of 11/05/2023) Resolved Problems Problem Noted Date Diagnosed Date [...] as of this encounter (statuses as of 11/05/2023) Immunizations Name Administration Dates Next Due COVID-19 mRNA, LNP-s, No Pre serve, 2-Dose Series ([employer]) 11/03/2020,10/13/2020 Influenza, Whole Virus 07/04/1999,1997,06/03/1997,06/03 PPD 03/21/2023 [...] encounter Miscellaneous Notes * Addendum Note - Mary Jane Barreto [...] length of need for the wheel chair. ([phone]) Please Fax new order to [phone] * Telephone Encounter - Mary Jane Barreto [...] completed at? Medical Fax Number, if applicable: [phone] Patient did have prescription written on 10/02/2023 [...] 1:00 PM EDT Office Visit Family Practice [address] [place] [address] Jerry Medrano III, MD [address] [place] [address] [place] [address] 07/21/2024 2:00 PM EST Office Visit Nephrology, [address] [place] [address] Jamie Viera MD [address] [place] [address] [place] [address] Scheduled Procedures Name Priority Associated Diagnoses Date/Ti [...] fatigue documented in this encounter Care Teams Electrical Parts Reconditioner Relationship Specialty Start Date End Date Jerry Medrano III, MD [address] [place] [address] PCP - General Family Medicine 10/21/18 documented as of this encounter
--- OUTSIDE RECORDS SUMMARY | 2023-11-23 23:41 | External Medical Summary | Summary of Care ---
Author Name Unknown Organization [facility] Address [address] [place] [address] Phone [phone] Care Team Providers Care Computing Services Director Name Role Phone Mitchell ROMAN MD, Jerry Cerda Primary Care Provider [phone] Reason for Visit * Reason Onset Date Comments Medication Refill 11/13/2023 Encounter Details Date Type Department Care Team (Late st Contact Info) Description 11/13/2023 Refill Family Practice [facility] 200 [facility] [place] [address] Jerry Medrano III, MD 200 [place] [address] Dyslipidemia, goal to be determined; Spinal stenosis [...] mRNA, LNP-s, No Pre serve, 2-Dose Series ([employer]) 11/03/2020,10/13/2020 PPD 03/21/2023 Pneumococcal Conjugate Vacc, [...] Notes * Telephone Encounter - Dianne Eldridge, pickle pumper - 11/13/2023 12:10 PM EDT Janell at [facility] calling to request a refill on see below. Medication was last prescribed by Odalys Roy but patient is asking if PCP can take over the medication. Please advise if this is appropriate and send to [id number] [facility] if agreeable. Thank you for your assistance Dianne Eldridge [employer] [facility] ([facility]) (Formerly Telepharm[facility]) 11/13/2023,12:27 PM These were all written by Date: 10/04/2023 Department: [facility] [employer] Ordering/Authorizing: Odalys Roy New scripts written by pcp are required please send new ninety day rxs per pt request Did you pend patient's preferred pharmacy and medication before forwarding?yes Pharmacy: [id number] [address] [facility] Pending Prescriptions: Disp Refills Atorvastatin Calcium [...] 1:00 PM EDT Office Visit Family Practice [address] [place] [address] Jerry Medrano III, MD 200 [facility] [place] [address] 07/21/2024 2:00 PM EST Office Visit Nephrology, [facility] [address] [place] [address] Jamie Viera MD 200 [facility] [place] [address] Scheduled Procedures Name Priority Associated Diagnoses Date/Ti [...] glucose documented in this encounter Care Teams Computing Services Director Relationship Specialty Start Date End Date Jerry Medrano III, MD 200 [place] [address] PCP - General Family Medicine 10/21/18 documented as of this encounter
--- OUTSIDE RECORDS SUMMARY | 2023-11-23 23:41 | External Medical Summary | Summary of Care ---
Author Name Unknown Organization [facility] Address [address] [place] [address] Phone [phone] Care Team Providers Care Cooling Tower Operator Name Role Phone Mitchell ROMAN MD, Jerry Cerda Primary Care Provider [phone] Reason for Visit * Reason Onset Date Comments Advice 10/31/2023 Order Request 10/31/2023 Encounter Details Date Type Department Care Team (Late st Contact Info) Description 10/31/2023 Telephone Family Practice [facility] 200 [place] [address] Jerry Medrano III, MD 200 [place] [address] Advice; Order Request Allergies No known active [...] mRNA, LNP-s, No Pre serve, 2-Dose Series ([employer]) 11/03/2020,10/13/2020 Influenza, Whole Virus 07/04/1999,1997,06/03/1997,06/03 PPD 03/21/2023 [...] or elevated leg rest Fax order to [phone] documented in this encounter Plan of Treatment Upcoming Encounters Date Type Department Care Team (Late st Contact Info) Description 12/06/2023 1:00 PM EDT Office Visit Family Practice [address] [place] [address] Jerry Medrano III, MD 200 [facility] [address] 07/21/2024 2:00 PM EST Office Visit Nephrology, [address] [place] [address] Jamie Viera MD [address] [place] [address] [place] [address] Scheduled Procedures Name Priority Associated Diagnoses Date/Ti [...] fatigue documented in this encounter Care Teams Cooling Tower Operator Relationship Specialty Start Date End Date Jerry Medrano III, MD 200 [place] [address] PCP - General Family Medicine 10/21/18 documented as of this encounter
--- OUTSIDE RECORDS SUMMARY | 2023-11-23 23:41 | External Medical Summary | Summary of Care ---
Author Name Unknown Organization [facility] Address [address] [place] [address] Phone [phone] Care Team Providers Care Dairy Manufacturing Technologist Name Role Phone Mitchell ROMAN MD, Rao Cerda Primary Care Provider [phone] Reason for Visit * Reason Comments eRx-Medication Refill Encounter Details Date Type Department Care Team (Late st Contact Info) Description 11/05/2023 Refill Family Practice [facility] 200 [facility] [place] [address] Rao Cain III, MD 200 [facility] [place] [address] Hyponatremia Allergies No known active allergiesdocumented as [...] 0 Active Furosemide 40 MG Oral Tablet (Lasix)Indication s:Hyponatremia TAKE 1 TABLET BY MOUTH IN MORNING AND AT NOON CHF 60 Tablet 0 11/07/2023 Active Furosemide 40 MG Oral Tablet (Lasix)Indication [...] mRNA, LNP-s, No Pre serve, 2-Dose Series ([employer]) 11/03/2020,10/13/2020 PPD 03/21/2023 Pneumococcal Conjugate Vacc, 13 [...] encounter Miscellaneous Notes * Telephone Encounter - Gatito Cid [facility] - 11/07/2023 8:00 AM ESTSigned Prescriptions: Disp Refills Furosemide 40 MG Oral Tablet (Lasix) 60 Tab*0 Sig: TAKE 1 TABLETBY MOUTH IN MORNING AND AT NOON CHFAuthorizing Provider: RAO CAIN III User: GATITO PRESCOTT * Telephone Encounter - Gatito Cid [facility] - 11/07/2023 7:59 AM EST Approved refill to hold until office visit on 12/06/23 * Telephone Encounter - Gatito Cid [facility] - 11/07/2023 7:58 AM EST Pending Prescriptions: Disp Refills Furosemide 40 MG Oral Tablet (Lasix) [Pha*60 Tab*10 Sig: TAKE 1 TABLET BY MOUTH IN MORNING AND AT NOON CHF Last Visit: 07/18/2023 (in office), 12/06/2022 (telemedicine) Next Visit: 12/06/2023 If no future appointments scheduled, and last appointment is greater than a year ago, please schedule patient for a follow-up appointment Last date the medication was ordered: 10/04/23 Pharmacy: [facility] [address] Is this request for a controlled substance? No Urine Drug Screen:No results found for this [...] EDT Office Visit Family Practice [facility] [place] [address] [place] [address] Rao Cain III, MD 200 [facility] [place] [address] 07/21/2024 2:00 PM EST Office Visit Nephrology, [facility] 200 [facility] [place] [address] Jamie Viera MD 200 [facility] [place] [address] Scheduled Procedures Name Priority Associated Diagnoses Date/Ti [...] hyponatremia documented in this encounter Care Teams Dairy Manufacturing Technologist Relationship Specialty Start Date End Date Rao Cain III, MD [address] [place] [address] PCP - General Family Medicine 10/21/18 documented as of this encounter
--- OUTSIDE RECORDS SUMMARY | 2023-11-23 23:41 | External Medical Summary | Summary of Care ---
Author Name Unknown Organization [facility] Address [address] [place] [address] Phone [phone] Care Team Providers Care Lead Simulation Modeling Engineer Name Role Phone Mitchell ROMAN MD, Jerry Cerda Primary Care Provider [phone] Reason for Visit * Reason Onset Date Comments Medication Refill 11/13/2023 Encounter Details Date Type Department Care Team (Late st Contact Info) Description 11/13/[address] [facility] [address] [place] [address] Jerry Medrano III, MD [address] [place] [address] Medication Refill Allergies No known active allergiesdocumented as of [...] 180 Tablet 1 11/12/2023 Active Potassium Chloride Nallely ER 20 MEQ Oral Tablet Extended Release Take 1 Tablet by mouth in the morning. 30 Tablet 11 11/13/2023 Active Magnesium Oxide 400 MG Oral Tablet Take 1 Tablet by mouth in the morning and 1 Tablet before bedtime. 60 Tablet 0 10/04/2023 4 Discontinue d(Refill) Potassium Chloride ER 20 MEQ Oral Tablet Extended Release Take 1 Tablet by mouth in the morning. 30 Tablet 0 10/04/2023 4 Discontinue d(Refill) documented as of this [...] Telephone Encounter - Landy Angelo LPN - 11/13/2023 9:40 AM EDT Please advise if you wish to continue therapy * Telephone Encounter - [place] Chery metal sprayer - 11/13/2023 9:33 AM EDT [facility] calling requesting Potassium Chloride ER 20 MEQ Oral Tablet Extended Release . Upon chart review, medication was last prescribed by [facility]. Pt did not schedule ahospital follow up visit. Please advise if you wish to continue this therapy for the patient. Thank you, [place] Chery Emergency Veterinary Assistant [facility] ([facility]) 11/13/2023,9:33 AM documented in this encounter Plan of Treatment Upcoming Encounters Date Type Department Care Team (Late st Contact Info) Description 12/06/2023 1:00 PM EDT Office Visit Family Practice [facility] [address] [facility] [place] [address] Jerry Medrano III, MD [address] [facility] [place] [address] 07/21/2024 2:00 PM EST Office Visit Nephrology, [facility] [address] [facility] [place] [address] Jamie Viera MD [address] [facility] [place] [address] Scheduled Procedures Name Priority Associated Diagnoses Date/Ti [...] filedocumented as of this encounter Care Teams Lead Simulation Modeling Engineer Relationship Specialty Start Date End Date Jerry Medrano III, MD [address] [place] [address] PCP - General Family Medicine 10/21/18 documented as of this encounter
--- OUTSIDE RECORDS SUMMARY | 2023-11-23 23:41 | External Medical Summary | Summary of Care ---
Author Name Unknown Organization [facility] Address [address] [place] [address] Phone [phone] Care Team Providers Care Water Plant Operator Name Role Phone Mitchell ROMAN MD, Rao Cerda Primary Care Provider [phone] Reason for Visit * Reason Onset Date Comments Advice 11/12/2023 Encounter Details Date Type Department Care Team (Late st Contact Info) Description 11/12/2023 Telephone Family Practice [facility] [address] [place] [address] Rao Cain III, MD [address] [place] [address] Advice Allergies No known active allergiesdocumented as [...] mRNA, LNP-s, No Pre serve, 2-Dose Series ([employer]) 11/03/2020,10/13/2020 Influenza, Whole Virus 07/04/1999,1997,06/03/1997,06/03 PPD 03/21/2023 [...] encounter Miscellaneous Notes * Addendum Note - Jose Strong LPN - 11/13/2023 9:07 AM EDTAddended by: JOSE STRONG on: 11/13/2023 09:07 AM Modules accepted: Orders * Telephone Encounter - Jose Strong LPN - 11/13/2023 8:59 AM EDT Patient's is calling. Has not heard back about the lasix. Did receive the metoprolol. [facility]ina Assumption told her he also needs magnesium and potassium. Asking if Dr. Cain wants to keep him on these? If he does, asking it be sent to [facility] Pending Prescriptions: Disp Refills [...] atrial fibrillation) ([facility]) I48.0 Esophageal obstruction K22.2 Hyponatremia E87.1 SIADH (syndrome of inappropriate ADH production) ([facility]) E22.2 Alcohol use Z78.9 Labs: Lab Results [...] EDT Office Visit Family Practice [facility] [place] [address] [facility] [place] [address] Rao Cain III, MD [address] [facility] [place] [address] 07/21/2024 2:00 PM EST Office Visit Nephrology, [facility] [address] [facility] [place] [address] Jamie Viera MD [address] [facility] [place] [address] Scheduled Procedures Name Priority Associated Diagnoses Date/Ti [...] 150/90 documented in this encounter Care Teams Water Plant Operator Relationship Specialty Start Date End Date Rao Cain III, MD [address] [place] [address] PCP - General Family Medicine 10/21/18 documented as of this encounter
--- OUTSIDE RECORDS SUMMARY | 2023-11-23 23:41 | External Medical Summary | Summary of Care ---
Author Name Unknown Organization [facility] Address [address] [place] [address] Phone [phone] Care Team Providers Care Web Content Director Name Role Phone Mitchell ROMAN MD, Jerry Cerda Primary Care Provider [phone] Reason for Visit * Reason Onset Date Comments Order Request 10/22/2023 Advice 10/22/2023 Encounter Details Date Type Department Care Team (Late st Contact Info) Description 10/22/2023 Telephone Family Practice [facility] [address] [place] [address] Jerry Medrano III, MD [address] [place] [address] Order Request; Advice Allergies No known active allergiesdocumented as of this encounter (statuses as of 10/31/2023) Medications Medication Sig Dispensed Refills Start Date [...] as of this encounter (statuses as of 10/31/2023) Active Problems Problem Noted Date Diagnosed Date Hyponatremia 09/20/2023 SIADH (syndrome of inappropriate ADH production) 09/20/2023 Alcohol use 09/20/2023 Esophageal obstruction 09/15/2019 PAF (paroxysmal atrial fibrillation) 08/14/2019 Dyslipidemia 07/17/2018 Lumbar spinal stenosis 09/01/2013 ADVANCE DIRECTIVE INFORMATION 01/06/2005 Overview: No, Advance Directive brochure offered , patient declined. HTN, goal below 140/90 documented as of this encounter (statuses as of 10/31/2023) Resolved Problems Problem Noted Date Diagnosed Date [...] as of this encounter (statuses as of 10/31/2023) Immunizations Name Administration Dates Next Due COVID-19 mRNA, LNP-s, No Pre serve, 2-Dose Series ([employer]) 11/03/2020,10/13/2020 Influenza, Whole Virus 07/04/1999,1997,06/03/1997,06/03 PPD 03/21/2023 [...] length of need for the wheel chair. ([id number]) Please Fax new order to [phone] * Telephone Encounter - Kimberly Fermin LPN [...] completed at? Medical Fax Number, if applicable: [phone] Patient did have prescription written on 10/02/2023 [...] EDT [facility] [place] [address] [facility] [place] [address] Jerry Medrano III, MD [address] [facility] [place] [address] 07/21/2024 2:00 PM EST Office Visit Nephrology, [facility] [address] [facility] [place] [address] Jamie Viera MD [address] [facility] [place] [address] Scheduled Procedures Name Priority Associated Diagnoses Date/Ti [...] documented in this encounter Care Teams Web Content Director Relationship Specialty Start Date End Date Jerry Medrano III, MD 200 [place] [address] PCP - General Family Medicine 10/21/18 documented as of this encounter
--- OUTSIDE RECORDS SUMMARY | 2023-11-23 23:41 | External Medical Summary | Summary of Care ---
Author Name Unknown Organization [facility] Address [address] [place] [address] Phone [phone] Care Team Providers Care Bad Credit Collector Name Role Phone Mitchell ROMAN MD, Jerry Cerda Primary Care Provider [phone] Reason for Visit * Reason Onset Date Comments Advice 10/31/2023 Encounter Details Date Type Department Care Team (Late st Contact Info) Description 10/31/2023 Telephone Family Practice [facility] [address] [place] [address] Jerry Medrano III, MD [address] [facility] [place] [address] Advice Allergies No known active allergiesdocumented as of this encounter (statuses as of 11/02/2023) Medications Medication Sig Dispensed Refills Start Date [...] as of this encounter (statuses as of 11/02/2023) Active Problems Problem Noted Date Diagnosed Date Hyponatremia 09/20/2023 SIADH (syndrome of inappropriate ADH production) 09/20/2023 Alcohol use 09/20/2023 Esophageal obstruction 09/15/2019 PAF (paroxysmal atrial fibrillation) 08/14/2019 Dyslipidemia 07/17/2018 Lumbar spinal stenosis 09/01/2013 ADVANCE DIRECTIVE INFORMATION 01/06/2005 Overview: No, Advance Directive brochure offered , patient declined. HTN, goal below 140/90 documented as of this encounter (statuses as of 11/02/2023) Resolved Problems Problem Noted Date Diagnosed Date [...] as of this encounter (statuses as of 11/02/2023) Immunizations Name Administration Dates Next Due COVID-19 mRNA, LNP-s, No Pre serve, 2-Dose Series ([employer] 11/03/2020,10/13/2020 PPD 03/21/2023 Pneumococcal Conjugate Vacc, 13 [...] or elevated leg rest Fax order to [phone] documented in this encounter Plan of Treatment Upcoming Encounters Date Type Department Care Team (Late st Contact Info) Description 12/06/2023 1:00 PM EDT Office Visit Family Practice [facility] [place] [address] [facility] [place] [address] Jerry Medrano III, MD [address] [facility] [place] [address] 07/21/2024 2:00 PM EST Office Visit Nephrology, [facility] [address] [facility] [place] [address] Jamie Viera MD [address] [facility] [place] [address] Scheduled Procedures Name Priority Associated Diagnoses Date/Ti me COLONOSCOPY FLEXIBLE PROXIMAL DIAGNOSTIC Recall History of colon polyps Health Maintenance Due Date Last Done Comments DTaP,Tdap,and Td Vaccines (2 - Td or Tdap) 10/11/2022 10/11/2012, 10/11/2012, 2007 Depression Screening 12/29/2022 12/29/2021 COVID-19 Vaccine ( - 2022- season) 2023 11/03/2020, 11/03/2020, 10/13/2020, [...] fatigue documented in this encounter Care Teams Bad Credit Collector Relationship Specialty Start Date End Date Jerry Medrano III, MD [address] [place] [address] PCP - General Family Medicine 10/21/18 documented as of this encounter
--- OUTSIDE RECORDS SUMMARY | 2023-11-23 23:42 | External Medical Summary | Summary of Care ---
Author Name Unknown Organization [facility] Address [address] [place] [address] Phone [phone] Care Team Providers Care Android Programmer Name Role Phone Mitchell ROMAN MD, Jerry Cerda Primary Care Provider [phone] Reason for Visit * Reason Comments Outpatient Testing Encounter Details Date Type Department Care Team (Late st Contact Info) Description 10/02/2023 2:30 PM EST Laboratory Laboratory [facility] [address] [place] [address] Pod3, Specimen Drop Off [facility] [address] [place] [address] Dysuria; Urine frequency Allergies No known active allergiesdocumented as of this encounter (statuses as of 10/02/2023) Medications Medication Sig Dispensed Refills Start Date [...] Capsule 1 Capsule at bedtime. 0 Active metFORMIN HCl ER 500 MG Oral Tablet Extended Release 24 Hour (Glucophage XR)Indications:Impai red fasting glucose TAKE 1 TABLET BY MOUTH EVERY DAY 90 Tablet 2 01/02/2023 Active Gabapentin 100 MG Oral Capsule (Neurontin) Take 1 Capsule by mouth in the morning and 1 Capsule at noon and 1 Capsule before bedtime. 90 Capsule 5 03/19/2023 Active Additional Information Patient taking differently: (No dose reported), Oral,(No frequency reported), Takes twice daily - 100 mg in AM and 200 mg at bedtime, Reported on 09/17/2023 Atorvastatin Calcium 40 MG Oral Tablet (Lipitor)Indications [...] FOR PAIN.. 90 Tablet 0 05/24/2023 Active Magnesium Oxide 400 MG Oral Tablet Take 1 Tablet by mouth in the morning and 1 Tablet before bedtime. 0 Active Metoprolol Succinate ER 50 MG Oral Tablet Extended Release 24 Hour (Toprol XL) Take 1 Tablet by mouth in the morning and 1 Tablet before bedtime. 0 Active Potassium Chloride ER 20 MEQ Oral Tablet Extended Release Take 1 Tablet by mouth in the morning. 0 Active Furosemide 40 MG Oral Tablet (Lasix) Take 1 Tablet by mouth in the morning and 1 Tablet before bedtime. 0 09/20/2023 Active documented as of this encounter (statuses as of 10/02/2023) Active Problems Problem Noted Date Diagnosed Date Hyponatremia 09/20/2023 SIADH (syndrome of inappropriate ADH production) 09/20/2023 Alcohol use 09/20/2023 Prediabetes 07/17/2022 Overview: Per Prediabetes protocol Esophageal obstruction 09/15/2019 PAF (paroxysmal atrial fibrillation) 08/14/2019 Dyslipidemia 07/17/2018 Lumbar spinal stenosis 09/01/2013 ADVANCE DIRECTIVE INFORMATION 01/06/2005 Overview: No, Advance Directive brochure offered , patient declined. HTN, goal below 140/90 documented as of this encounter (statuses as of 10/02/2023) Resolved Problems Problem Noted Date Diagnosed Date Resolved Date Obesity, morbid (more than 1 00 lbs [...] as of this encounter (statuses as of 10/02/2023) Immunizations Name Administration Dates Next Due COVID-19 mRNA, LNP-s, No Pre serve, 2-Dose Series ([employer]) 11/03/2020,10/13/2020 PPD 03/21/2023 Pneumococcal Conjugate Vacc, 13 [...] Care Team (Late st Contact Info) Description 10/17/2023 1:00 PM EST Office Visit Nephrology, [facility] [address] [place] [address] Jamie Viera MD [address] [place] [address] 12/06/2023 1:00 PM EDT Office Visit Family Practice [facility] [place] [address] [place] [address] Jerry Medrano III, MD 200 [facility] [place] [address] Pending Results Name Type Priority Associated Diagnoses Date /Time URINALYSIS, REFLEX TO MICROSCOPIC Lab Routine Dysuria Urine frequency 10/02/2023 1:30 PM EST CULTURE, URINE, QUANTITATIVE Lab Routine Dysuria Urine frequency 10/02/2023 1:30 PM EST Scheduled Procedures Name Priority Associated Diagnoses Date/Ti me COLONOSCOPY FLEXIBLE PROXIMAL DIAGNOSTIC Recall History of colon polyps Health Maintenance Due Date Last Done Comments DTaP,Tdap,and Td Vaccines (2 - Td or Tdap) 10/11/2022 10/11/2012, 2007 Depression Screening 12/29/2022 12/29/2021 COVID-19 Vaccine (3 - 2022- season) 2023 11/03/2020, 10/13/2020 HbA1c 07/18/2024 07/18/2023, 06/04, 12/18/2019, Additional history exists GFR 10/01/2024 10/01/2023, 09/04, 09/19/2023, Additional history exists Albumin/Creatinine Ratio 07/03/2025 07/03/2022 [...] as of this encounter Visit Diagnoses Diagnosis Dysuria Urine frequency Urinary frequency documented in this encounter Care Teams Android Programmer Relationship Specialty Start Date End Date Jerry Medrano III, MD 200 [facility] [place] [address] PCP - General Family Medicine 10/21/18 documented as of this encounter
--- OUTSIDE RECORDS SUMMARY | 2023-11-23 23:42 | External Medical Summary ---
Author Name Unknown Address Unknown Organization [id number] [address] [place] [address] Laboratory Report Ordering Provider Test Date Status ANAI LEAL 09/24/2023 05:45:00 Final Observation Date Value Abnormality Reference (Units ) Status BUN 09/24/2023 05:45:00 17 6-20 (mg/dL) Final Creatinine 09/24/2023 05:45:00 0.9 0.6-1.2 (mg/dL) Final Glomerular filtration rate/1.73 sq M.predicted [Volume Rate/Area] in Serum, Plasma or Blood by Creatinine-based formula (CKD-EPI) 09/24/2023 05:45:00 84 >=60 (mL/min) Final eGFR is calculated based on the CKD-EPI 2020 equation SODIUM 09/24/2023 05:45:00 135 135-146 (m mol/L) Final Potassium 09/24/2023 05:45:00 4.7 3.5-5.1 (m mol/L) Final Cl 09/24/2023 05:45:00 98 98-107 (mm ol/L) Final CO2 09/24/2023 05:45:00 28 22-32 (mmo l/L) Final Anion gap 09/24/2023 05:45:00 9 7-15 (mmol /L) Final Glucose 09/24/2023 05:45:00 97 70-120 (mg /dL) Final Calcium 09/24/2023 05:45:00 9.4 8.4-10.2 ( mg/dL) Final Performing Location [facility] [address] [place] [address]
--- OUTSIDE RECORDS SUMMARY | 2023-11-23 23:42 | External Medical Summary | Summary of Care ---
Author Name Unknown Organization [facility] Address [address] [place] [address] Phone [phone] Care Team Providers Care Equine Dentist Name Role Phone Mitchell ROMAN MD, Jerry Cerda Primary Care Provider [phone] Encounter Details Date Type Department Care Team (Late st Contact Info) Description 10/02/2023 Orders Only Laboratory [facility] [place] [address] [place] [id number] Odalys Roy PA-C [address] [place] [address] Dysuria*; Urine frequency Allergies No known active allergiesdocumented [...] mRNA, LNP-s, No Pre serve, 2-Dose Series ([employer]) 11/03/2020,10/13/2020 PPD 03/21/2023 Pneumococcal Conjugate Vacc, 13 [...] 10/17/2023 1:00 PM EST Office Visit Nephrology, [facility] [address] [place] [address] Jamie Viera MD [address] [place] [address] 12/06/2023 1:00 PM EDT Office Visit Family Practice [facility] [place] [address] [place] [address] Jerry Medrano III, MD 200 [facility] [place] [address] Pending Results Name Type Priority Associated Diagnoses Date /Time URINALYSIS, REFLEX TO MICROSCOPIC Lab Routine Dysuria Urine frequency 10/02/2023 1:30 PM EST CULTURE, URINE, QUANTITATIVE Lab Routine Dysuria Urine frequency 10/02/2023 1:30 PM EST Scheduled Orders Name Type Priority Associated Diagnoses Orde r Schedule URINALYSIS, REFLEX TO MICROSCOPIC Lab Routine Dysuria Urine frequency Expected: 10/02/2023, Expires: 10/02/2024 CULTURE, URINE, QUANTITATIVE Lab Routine Dysuria Urine frequency Expected: 10/02/2023, Expires: 10/02/2024 Scheduled Procedures Name Priority Associated Diagnoses Date/Ti [...] Zoster Vaccines Completed 12/03/2018, 11/0 02/2018, 10/25/2011 Influenza Vaccine (FLU shot) Completed [...] as of this encounter Visit Diagnoses Diagnosis Dysuria- Primary Urine frequency Urinary frequency documented in this encounter Care Teams Equine Dentist Relationship Specialty Start Date End Date Jerry Medrano III, MD 200 [facility] [place] [address] PCP - General Family Medicine 10/21/18 documented as of this encounter
--- OUTSIDE RECORDS SUMMARY | 2023-11-23 23:42 | External Medical Summary | Summary of Care ---
Author Name Unknown Organization [facility] Address [address] [place] [address] Phone [phone] Care Team Providers Care Pyrometer Operator Name Role Phone Mitchell ROMAN MD, Jerry Cerda Primary Care Provider [phone] Reason for Visit * Reason Onset Date Comments Skilled Visit 09/24/2023 Encounter Details Date Type Department Care Team (Late st Contact Info) Description 09/24/2023 11:00 AM EST Correction Visit [facility] [place] [address] [place] [address] Odalys Roy PA-C [address] [place] [address] Hyponatremia*; Intertrigo Allergies No known active allergiesdocumented as of this encounter (statuses as of 09/24/2023) Medications Medication Sig Dispensed Refills Start Date [...] as of this encounter (statuses as of 09/24/2023) Active Problems Problem Noted Date Diagnosed Date [...] as of this encounter (statuses as of 09/24/2023) Resolved Problems Problem Noted Date Diagnosed Date [...] as of this encounter (statuses as of 09/24/2023) Immunizations Name Administration Dates Next Due COVID-19 mRNA, LNP-s, No Pre serve, 2-Dose Series ([employer]) 11/03/2020,10/13/2020 PPD 03/21/2023 Pneumococcal Conjugate Vacc, 13 [...] Sign Reading Time Taken Comments Blood Pressure 147/68 09/24/2023 11:06 AM EST Pulse 70 09/24/2023 11:06 AM EST Temperature 36.5 C (97.7 F) 09/24/2023 11:[address] Respiratory Rate 18 09/24/2023 11:06 AM EST Oxygen Saturation 98% 09/24/2023 11:06 AM EST room air Inhaled Oxygen Concentration - - Weight - - Height - - Body Mass Index - - documented in this encounter Progress Notes * Odalys Roy PA-C - 09/24/2023 11:00 AM EST Name: Severino Green Date of : 1940 This note pertains to care provided at [facility]. Please see facility record for original note. This note is not to be edited or addended in [facility]. Editing or addending needs to occur in the facility's medical record. Chief Complaint Patient presents with Skilled Visit TRANSITION EVENT: Type: Skilled visit Date: September 24 Code Status: No Code SUBJECTIVE: Severino Green is a 82 year old male HPI: short-term rehab pt recently hospitalized with acute COVID-19 infection. Incidentally noted jairo hyponatremic during his admission. Sodium level now normalized. He would like to be able to drink more fluids. Staff report redness in skin folds of abdomen. He admits this occurs often at home, gets itchy and sore. PMH: Patient Active Problem List Diagnosis Code HTN, goal below 140/90 I10 ADVANCE DIRECTIVE INFORMATION Lumbar spinal stenosis M48.061 Dyslipidemia E78.5 PAF (paroxysmal atrial fibrillation) ([facility]) I48.0 Esophageal obstruction K22.2 Prediabetes R73.03 Hyponatremia E87.1 SIADH (syndrome of inappropriate ADH production) ([facility]) E22.2 Alcohol use Z78.9 Review of patient's allergies indicates: No Known Allergies Medications: Pt's current medication list is maintained at [facility] and was reviewed at this visit. Review of Systems: Per HPI OBJECTIVE: BP 147/68 | Pulse 70 | Temp 36.5 C (97.7 F) | Resp 18 | SpO2 98% Comment: room air General: alert and no distress Head: Normocephalic Eye Exam: conjunctiva are pink and non-injected, sclera clear Oropharynx: lips, buccal mucosa, and tongue normal and mucous membranes are moist Heart: regular rate & rhythm Lungs: chest symmetric with normal AP diameter, no chest deformities noted, no chest wall tenderness, lungs clear to auscultation Abdomen: abdomen soft, non-tender, normal bowel sounds, no masses or organomegaly, and no rebound or guarding Extremities: less than 2 second capillary refill, no joint deformities, effusion, or inflammation, trace BLE edema Neuro Exam: alert & oriented x 3 with fluent speech Skin: Red right abdominal fold Results for orders placed or performed in visit on 09/24/23 BASIC METABOLIC PANEL Result Value Ref Range BUN 17 6 - 20 mg/dL Creatinine 0.9 0.6 - 1.2 mg/dL Estimated Glomerular Filtration Rate 84 >=60 mL/min Sodium 135 135 - 146 mmol/L Potassium 4.7 3.5 - 5.1 mmol/L Chloride 98 98 - 107 mmol/L CO2 28 22 - 32 mmol/L Anion Gap 9 7 - 15 mmol/L Glucose 97 70 - 120 mg/dL Calcium 9.4 8.4 - 10.2 mg/dL Results reviewed with patient during visit ASSESSMENT/PLAN: [facility] chart (outside system) reviewed for vital signs, nursing notes, CODE STATUS, and most up to date medication list Discussed management with other clinician during the visit (facility RN) Hyponatremia (Primary) Sodium level now stabilized Continue lasix 40 mg twice daily Stop daily weights - have been stable with recent diuretic increase Ok to increase fluid allowance to 2000 ml/day BMP 1 week Intertrigo Nystatin powder to abdominal and groin folds twice daily for 10 days [facility] Home Treatment Given: Diuretic PO lasix and Lab Draw BMP Follow up: 1-2 days and as needed I spent a total of 32 minutes coordinating, documenting, and providing care for this patient excluding time spent in the performance of separately billed services or time spent by another provider/QHP. documented in this encounter Plan of Treatment Upcoming Encounters Date Type Department Care Team (Late st Contact Info) Description 10/17/2023 1:00 PM EST Office Visit Nephrology, [place] [address] [place] [id number] Jamie Viera MD [address] [facility] [place] [address] 12/06/2023 1:00 PM EDT Office Visit Family Practice [facility] [address] [facility] [place] [id number] Jerry Medrano III, MD [address] [facility] [place] [address] Scheduled Procedures Name Priority Associated Diagnoses Date/Ti me COLONOSCOPY FLEXIBLE PROXIMAL DIAGNOSTIC Recall History of colon polyps Health Maintenance Due Date Last Done Comments DTaP,Tdap,and Td Vaccines (2 - Td or Tdap) 10/11/2022 10/11/2012, 2007 Depression Screening 12/29/2022 12/29/2021 COVID-19 Vaccine ( - season) 2023 11/03/2020, 10/13/2020 HbA1c 07/18/2024 07/18/2023, 06/04, 12/18/2019, Additional history exists GFR 09/24/2024 09/24/2023, 09/03, 09/17/2023, Additional history exists Albumin/Creatinine Ratio 07/03/2025 07/03/2022 [...] as of this encounter Visit Diagnoses Diagnosis Hyponatremia- Primary Hyposmolality and/or hyponatremia Intertrigo Other specified erythematous condition documented in this encounter Care Teams Pyrometer Operator Relationship Specialty Start Date End Date Jerry Medrano III, MD [address] [place] [address] PCP - General Family Medicine 10/21/18 documented as of this encounter"
--- OUTSIDE RECORDS SUMMARY | 2023-11-23 23:42 | External Medical Summary | Summary of Care ---
Author Name Unknown Organization [facility] Address [address] [place] [address] Phone [phone] Care Team Providers Care Automatic Gluing Machine Operator Name Role Phone Mitchell ROMAN MD, Jerry Cerda Primary Care Provider [phone] Reason for Referral * Evaluate & Treat - Unlimited Visits (Within 3 days (urgent)) - Pending Review Specialty Diagnoses / Procedures Referred By Nella heath Referred To Contact Occupational Medicine / Occupational Therapy Diagnoses Primary osteoarthritis of both hands Spinal stenosis of lumbar region, unspecified whether neurogenic claudication present History of 2019 novel coronavirus disease (COVID-19) Ambulatory dysfunction Generalized weakness Odalys Roy PA-C [address] [place] [address] Referral ID Status Reason Start Date Expiration Date Visits Requested Visits Authorized [id number] Pending Review Specialty Services Required 10/04/[phone] Question Answer Referral Priority Within 3 days (urgent) Where should this appointment be scheduled? External Comments All correspondence to PCP * Evaluate & Treat - Unlimited Visits (Within 3 days (urgent)) - Pending Review Specialty Diagnoses / Procedures Referred By Nella heath Referred To Contact Physical Therapy / Physical Medicine And Rehab Diagnoses Primary osteoarthritis of both hands Spinal stenosis of lumbar region, unspecified whether neurogenic claudication present History of 2019 novel coronavirus disease (COVID-19) Ambulatory dysfunction Generalized weakness Odalys Roy PA-C [address] [place] [address] Referral ID Status Reason Start Date Expiration Date Visits Requested Visits Authorized [id number] Pending Review Specialty Services Required 10/04/[phone] Question Answer Referral Priority Within 3 days (urgent) Where should this appointment be scheduled? External Comments All correspondence to PCP Reason for Visit * Reason Onset Date Comments Mcc Visit - Discharge 10/04/2023 Encounter Details Date Type Department Care Team (Late st Contact Info) Description 10/04/2023 8:00 AM EST [facility] Visit [facility] [place] [address] [place] [id number] [facility] [address] [facility] [address] Generalized weakness*; History of 2019 novel coronavirus disease (COVID-19); Hyponatremia; Dyslipidemia, goal to be determined; Primary osteoarthritis of both hands; Spinal stenosis of lumbar region, unspecified whether neurogenic claudication present; Seborrheic dermatitis; HTN, goal below 150/90; Prediabetes; Acute cystitis with hematuria; Ambulatory dysfunction; Alcohol use; DOROTHY (generalized anxiety disorder) Allergies No known active allergiesdocumented as of this encounter (statuses as of 10/04/2023) Medications Medication Sig Dispensed Refills Start Date [...] EVERY DAY 100 Tablet 3 05/28/2023 Active Atorvastatin Calcium 40 MG Oral Tablet (Lipitor)Indications :Dyslipidemia, goal to be determined Take 1 Tablet by mouth in the morning. 30 Tablet 0 10/04/2023 Active Gabapentin 100 MG Oral Capsule (Neurontin)Indicatio ns:Spinal stenosis of lumbar region, unspecified whether neurogenic claudication present Takes by mouth twice daily - 100 mg in AM and 200 mg at bedtime 90 Capsule 0 10/04/2023 Active Ketoconazole 2 % External CreamIndications:Iggy orrheic dermatitis Apply topically to affected area 2 times a day. Apply to face/scalp 60 g 0 10/04/2023 4 Active Furosemide 40 MG Oral Tablet (Lasix)Indications:H yponatremia Take 1 Tablet by mouth 2 times a day in the morning and at noon. 60 Tablet 0 10/04/2023 Active Magnesium Oxide 400 MG Oral Tablet Take 1 Tablet by mouth in the morning and 1 Tablet before bedtime. 60 Tablet 0 10/04/2023 Active Meloxicam 7.5 MG Oral Tablet (Mobic)Indications:P rimary osteoarthritis of both hands Take 1 Tablet by mouth in the morning. for pain.. 30 Tablet 0 10/04/2023 Active metFORMIN HCl 500 MG Oral Tablet (Glucophage)Indicati ons:Prediabetes Take 1 Tablet by mouth every afternoon. [...] the morning. 30 Capsule 0 10/04/2023 Active Sulfamethoxazole-Tri methoprim 800-160 MG Oral Tablet (Bactrim DS) Take 1 Tablet by mouth in the morning and 1 Tablet before bedtime. For UTI, until 10/10/23. 0 10/04/2023 4 Active Multiple Vitamins-Minerals (OCUVITE-LUTEIN) TABS Take 1 Tab by mouth daily. 0 4 Discontinue d(Refill) Cholecalciferol (VITAMIN D-3) 25 MCG (1000 UT) Capsule 1 Capsule at bedtime. 0 4 Discontinue d(Refill) metFORMIN HCl ER 500 MG Oral Tablet Extended Release 24 Hour (Glucophage XR)Indications:Impai red fasting glucose TAKE 1 TABLET BY MOUTH EVERY DAY 90 Tablet 2 01/02/2023 4 Discontinue d(Medicatio n List Clean Up) Gabapentin 100 MG Oral Capsule (Neurontin) Take 1 Capsule by mouth in the morning and 1 Capsule at noon and 1 Capsule before bedtime. 90 Capsule 5 03/19/2023 4 Discontinue d(Refill) Atorvastatin Calcium 40 MG Oral Tablet (Lipitor)Indications :Dyslipidemia, goal to be determined TAKE 1 TABLET BY MOUTH EVERY DAY 90 Tablet 1 03/29/2023 4 Discontinue d(Refill) Meloxicam 7.5 MG Oral Tablet (Mobic)Indications:P rimary osteoarthritis of both hands TAKE 1 TABLET BY MOUTH IN THE MORNING. FOR PAIN.. 90 Tablet 0 05/24/2023 4 Discontinue d(Refill) Magnesium Oxide 400 MG Oral Tablet Take 1 Tablet by mouth in the morning and 1 Tablet before bedtime. 0 4 Discontinue d(Refill) Metoprolol Succinate ER 50 MG Oral Tablet Extended Release 24 Hour (Toprol XL) Take 1 Tablet by mouth in the morning and 1 Tablet before bedtime. 0 4 Discontinue d(Refill) Potassium Chloride ER 20 MEQ Oral Tablet Extended Release Take 1 Tablet by mouth in the morning. 0 4 Discontinue d(Refill) Furosemide 40 MG Oral Tablet (Lasix) Take 1 Tablet by mouth in the morning and 1 Tablet before bedtime. 0 09/20/2023 4 Discontinue d(Refill) documented as of this encounter (statuses as of 10/04/2023) Active Problems Problem Noted Date Diagnosed Date [...] as of this encounter (statuses as of 10/04/2023) Resolved Problems Problem Noted Date Diagnosed Date [...] as of this encounter (statuses as of 10/04/2023) Immunizations Name Administration Dates Next Due COVID-19 mRNA, LNP-s, No Pre serve, 2-Dose Series ([employer]) 11/03/2020,10/13/2020 PPD 03/21/2023 Pneumococcal Conjugate Vacc, 13 [...] on file documented as of this encounter Patient Instructions * Patient Instructions* Odalys Roy PA-C - 10/04/2023 2:21 PM EST Finish the bactrim (antibiotic) for your urinary tract infection x 7 days. Please discuss with yourPCP if symptoms have not resolved. Continue to avoid consuming alcohol as this could affect your body's sodium level. Please follow up with your primary care doctor within 1 week of discharge from [facility]. documented in this encounter Progress Notes * Odalys Roy PA-C - 10/04/2023 1:37 PM EST DISCHARGE NOTE TRANSITION EVENT: Type: Discharge to Personal Care Facility Date: October 05 Code Status: No Code Name: Severino Green Date of : 1940 This [facility] Please see facility medical record for original note. This note is not to be edited or addended in [facility]. Editing or addending needs to occur in the facilities medical record. Discharge Medications: Current Outpatient Medications Medication Sig Dispense Refill Propylene Glycol 0.6 % Ophthalmic Solution Instill 1 Drop into both eyes in the morning. Acetaminophen 500 MG Oral Tablet Take 1 Tablet by mouth every 6 hours as needed for Pain. [facility] Vitamin B-12 1000 MCG Oral Tablet (vitamin b 12) TAKE 1 TABLET BY MOUTH EVERY DAY 100 Tablet 3 Atorvastatin Calcium 40 MG Oral Tablet (Lipitor) Take 1 Tablet by mouth in the morning. 30 Tablet 0 Gabapentin 100 MG Oral Capsule (Neurontin) Takes by mouth twice daily - 100 mg in AM and 200 mg at bedtime 90 Capsule 0 Ketoconazole 2 % External Cream Apply topically to affected area 2 times a day. Apply to face/scalp60 g 0 Furosemide 40 MG Oral Tablet (Lasix) Take 1 Tablet by mouth 2 times a day in the morning and at noon. 60 Tablet 0 Magnesium Oxide 400 MG Oral Tablet Take 1 Tablet by mouth in the morning and 1 Tablet before bedtime. 60 Tablet 0 Meloxicam 7.5 MG Oral Tablet (Mobic) Take 1 Tablet by mouth in the morning. for pain.. 30 Tablet 0 metFORMIN HCl 500 MG Oral Tablet (Glucophage) Take 1 Tablet by mouth every afternoon. With supper. 30 Tablet 0 Metoprolol Succinate ER 50 MG Oral Tablet Extended Release 24 Hour (Toprol XL) Take 1 Tablet by mouth in the morning and 1 Tablet before bedtime. 60 Tablet 0 Ocuvite-Lutein Oral Tablet Take 1 Tablet by mouth in the morning. 30 Tablet 0 Potassium Chloride ER 20 MEQ Oral Tablet Extended Release Take 1 Tablet by mouth in the morning. 30Tablet 0 Vitamin D-3 25 MCG (1000 UT) Oral Capsule Take 1 Capsule by mouth in the morning. 30 Capsule 0 Sulfamethoxazole-Trimethoprim 800-160 MG Oral Tablet (Bactrim DS) Take 1 Tablet by mouth in the morning and 1 Tablet before bedtime. For UTI, until 10/10/23. No current facility-administered medications for this visit. S: Severino Green is being discharged from [facility] to personal care facility ([facility] Admitted to [facility] on 09/14/2023 for short-term rehab following hospitalization, which is summarized below. Per admitting note dated 09/20/23: "Severino Green had been admitted to [facility] from [facility] for PT and OT. Recently admitted to [facility] on 08/30/23 because of COVID-19 infection and hyponatremia and was transferred here and admitted on 09/14/23. Patient of Dr. Medrano with PMH of hypertension, dyslipidemia, PAF, prediabetes, and lumbar spinal stenosis who presented to the ED with progressive weakness and 2 weeks of upper respiratory symptoms. In the ED, he had a fever and was given ceftriaxone. Respiratory pathogen testing was positive for COVID-19. CXR was negative for acute findings. His sodium was noted to be low and remained around 127-128 with elevated osmolarity and high urine sodium. He was seen by nephrology. His Jessica pamide was discontinued and he was started on Lasix 40 mg daily along with a potassium supplement. He was also placed on 1500 ml fluid restriction and remained hyponatremia. He is to follow-up with nephrology in 1-2 weeks. Recommended to avoid thiazide type diuretics. Patient also noted to have been drinking 6-7 beers a day prior to hospital admission. Renner to have a component of SIADH along withthiazide and alcohol use causing hyponatremia. He was placed on Urea but was discontinued due to BUN elevation. Blood pressure was low throughout admission. His amlodipine, and lisinopril were discontinued alongwith indapamide (due to hyponatremia). His metoprolol succinate dose was changed from 200 mg daily to 50 mg twice daily. He is now admitted for PT/OT. Lives at home with his but states she is not able to care for him any longer and considering personal skilled nursing after discharge from this facility. Patient states the 1500 ml fluid restriction is very difficult to adhere to and continues to ask repeatedly to have this increased. Is scheduled with nephrology 10/17/23. Has been noted to be noncompliant with fluid restriction and his Lasix was increased to 40 mg twice daily on 09/17/23. His sodium done yesterday was improved to 130 from 128 on 09/17/23. " His hyponatremia has improved. He is currently on a 2500 ml/day fluid restriction with stable sodium level. He is scheduled for follow up with nephrology on 10/17/23. He is currently being treated for e coli UTI, bactrim DS twice daily for 7 days (started 10/04/23). He is not ambulatory, transfers to wheelchair with use of a platform walker with assistance. Has history of : Past Medical History: Diagnosis Date Chronic prostatitis Prostatitis, Chronic HTN, goal below 140/90 Hypertension Benign Sprain, lumbosacral chronic low back pain Umbilical hernia small Patient Active Problem List Diagnosis Code HTN, goal below 140/90 I10 ADVANCE DIRECTIVE INFORMATION Lumbar spinal stenosis M48.061 Dyslipidemia E78.5 PAF (paroxysmal atrial fibrillation) ([facility]) I48.0 Esophageal obstruction K22.2 Prediabetes R73.03 Hyponatremia E87.1 SIADH (syndrome of inappropriate ADH production) ([facility]) E22.2 Alcohol use Z78.9 Past Surgical History: Procedure Laterality Date COLONOSCOPY, DIAGNOSTIC (RECTUM) 10/09/2018 adenomatous, hyperplastic & serrated adenomatous polyps, diverticulosis, repeat 6 mo / [facility] COLONOSCOPY, DIAGNOSTIC (RECTUM) 07/22/2019 hyperplastic polyp, fair prep, repeat 3 yrs/COLONOSCOPY FLEXIBLE PROXIMAL DIAGNOSTIC performed by Kun Tapia DO at [facility] EGD, FLEXIBLE, DIAGNOSTIC 10/09/2018 gastritis, Schatzki ring / [facility] REMOVAL OF APPENDIX REMOVE TONSILS & ADENOIDS, UNDER 12 Family History Problem Relation Age of Onset Lung Disorder Brother copd Heart Disorder Mother chf, pvd @93 Lung Disorder Father silicosis tb @72 Family Status Relation Status Mo Alive Fa Alive emphysema Son Alive Unknown (Not Specified) Social History Socioeconomic History Marital status: Spouse name: Not on file Number of children: Not on file Years of education: Not on file Highest education level: Not on file Occupational History Not on file Tobacco Use Smoking status: Former Packs/day: 0.50 Years: 10.00 Additional pack years: 0.00 Total pack years: 5.00 Types: Cigarettes Quit date: 09/12/1974 Years since quittin.0 Smokeless tobacco: Never Substance and Sexual Activity Alcohol use: Yes Comment: 4 cans beer/day Drug use: No Sexual activity: Not on file Other Topics Concern Not on file Social History Narrative Not on file Social Determinants of Health Financial Resource Strain: Not on file Food Insecurity: No Food Insecurity (08/14/2019) Hunger Vital Sign Worried About Running Out of Food in the Last Year: Never true Ran Out of Food in the Last Year: Never true Transportation Needs: Not on file Physical Activity: Not on file Stress: Not on file Social Connections: Not on file Intimate Partner Violence: Not on file Housing Stability: Not on file Review of patient's allergies indicates: No Known Allergies Adequate nutrition/fluids: Yes Bowel/Bladder dysfunction: Yes - he is occasionally incontinent of bowel and bladder Assistive Devices: non ambulating - utilizes wheelchair ADL: dependent O: General: alert, healthy, and no distress Head: Normocephalic Eye Exam: extraocular movements intact, conjunctiva are pink and non-injected, sclera clear Oropharynx: lips, buccal mucosa, and tongue normal and mucous membranes are moist Heart: regular rate & rhythm Lungs: chest symmetric with normal AP diameter, no chest deformities noted, no chest wall tenderness, lungs clear to auscultation Abdomen: abdomen soft, non-tender, normal bowel sounds, and distended Extremities: less than 2 second capillary refill, no joint deformities, effusion, or inflammation, trace BLE edema Neuro Exam: alert & oriented x 3 with fluent speech Skin: pink, warm, dry Results for orders placed or performed in visit on 10/02/23 URINALYSIS, REFLEX TO MICROSCOPIC Result Value Ref Range Color, Urine Yellow Colorless, Light Yellow, Yellow, Dark Yellow Clarity, Urine Slightly Cloudy (A) Clear Glucose, Urine Negative Negative mg/dL Bilirubin, Urine Negative Negative Ketone, Urine Negative Negative mg/dL Specific [place], Urine 1.019 1.003 - 1.030 Blood, Urine Large (A) Negative pH, Urine 6.5 5.0 - 7.5 Units Protein, Urine 30 (A) Negative mg/dL Urobilinogen, Urine Normal Normal mg/dL Nitrite, Urine Negative Negative Esterase, Urine Large (A) Negative RBC, Urine 50+ (A) 0 - 2 /HPF WBC, Urine 50+ (A) 0 - 2 /HPF Bacteria, Urine 0-25 0 - 25 /HPF Renal Epithelial Cells, Urine 1-4 (A) None /HPF WBC Clumps, Urine Present (A) None /HPF CULTURE, URINE, QUANTITATIVE Specimen: Urine, Clean Catch Result Value Ref Range Culture Growth >100,000 colonies/mL Escherichia coli (A) Basic Panel Results: Results for orders placed or performed in visit on 10/01/23 BASIC METABOLIC PANEL Result Value Ref Range BUN 11 6 - 20 mg/dL Creatinine 0.8 0.6 - 1.2 mg/dL Estimated Glomerular Filtration Rate 88 >=60 mL/min Sodium 137 135 - 146 mmol/L Potassium 3.9 3.5 - 5.1 mmol/L Chloride 101 98 - 107 mmol/L CO2 26 22 - 32 mmol/L Anion Gap 10 7 - 15 mmol/L Glucose 84 70 - 120 mg/dL Calcium 9.0 8.4 - 10.2 mg/dL A: Generalized weakness (Primary) - PHYSICAL THERAPY REFERRAL OP - OCCUPATIONAL THERAPY REFERRAL OP History of 2019 novel coronavirus disease (COVID-19) - PHYSICAL THERAPY REFERRAL OP - OCCUPATIONAL THERAPY REFERRAL OP Hyponatremia - Furosemide 40 MG Oral Tablet (Lasix); Take 1 Tablet by mouth 2 times a day in the morning and at noon. Dyslipidemia, goal to be determined - Atorvastatin Calcium 40 MG Oral Tablet (Lipitor); Take 1 Tablet by mouth in the morning. Primary osteoarthritis of both hands - Meloxicam 7.5 MG Oral Tablet (Mobic); Take 1 Tablet by mouth in the morning. for pain.. - PHYSICAL THERAPY REFERRAL OP - OCCUPATIONAL THERAPY REFERRAL OP Spinal stenosis of lumbar region, unspecified whether neurogenic claudication present - Gabapentin 100 MG Oral Capsule (Neurontin); Takes by mouth twice daily - 100 mg in AM and 200 mg at bedtime - PHYSICAL THERAPY REFERRAL OP - OCCUPATIONAL THERAPY REFERRAL OP Seborrheic dermatitis - Ketoconazole 2 % External Cream; Apply topically to affected area 2 times a day. Apply to face/scalp HTN, goal below 150/90 - Metoprolol Succinate ER 50 MG Oral Tablet Extended Release 24 Hour (Toprol XL); Take 1 Tablet by mouth in the morning and 1 Tablet before bedtime. Prediabetes - metFORMIN HCl 500 MG Oral Tablet (Glucophage); Take 1 Tablet by mouth every afternoon. With supper. Acute cystitis with hematuria Bactrim DS 1 tab twice daily for 7 days (start 10/04/23) Ambulatory dysfunction - PHYSICAL THERAPY REFERRAL OP - OCCUPATIONAL THERAPY REFERRAL OP He is non-ambulatory, uses wheelchair for all mobility Alcohol use He has abstained while here Discussed with patient avoidance of alcohol in the future due to hyponatremia DOROTHY (generalized anxiety disorder) Not medicated at this time Other orders - Magnesium Oxide 400 MG Oral Tablet; Take 1 Tablet by mouth in the morning and 1 Tablet before bedtime. - Ocuvite-Lutein Oral Tablet; Take 1 Tablet by mouth in the morning. - Potassium Chloride ER 20 MEQ Oral Tablet Extended Release; Take 1 Tablet by mouth in the morning. - Vitamin D-3 25 MCG (1000 UT) Oral Capsule; Take 1 Capsule by mouth in the morning. P: 1. Discharge to personal care facility 2. Transtional PT and OT will continue at personal care facility 3. Copy of chart sent to PCP 4. Patient to follow up with PCP within 7 days. 5. Soil Field Technician: Marie Wahl at [facility] 6. I spent 48 minutes on discharge. documented in this encounter Plan of Treatment Upcoming Encounters Date Type Department Care Team (Late st Contact Info) Description 10/17/2023 1:00 PM EST Office Visit Nephrology, [facility] [address] [place] [address] Jamie Viera MD [address] [place] [address] 12/06/2023 1:00 PM EDT Office Visit Family Practice [facility] [place] [address] [place] [address] Jerry Medrano III, MD [address] [place] [address] Scheduled Procedures Name Priority Associated Diagnoses Date/Ti me COLONOSCOPY FLEXIBLE PROXIMAL DIAGNOSTIC Recall History of colon polyps Scheduled Referrals Name Type Priority Associated Diagnoses Orde r Schedule PHYSICAL THERAPY REFERRAL OP Referral Within 3 days (urgent) Primary osteoarthritis of both hands Spinal stenosis of lumbar region, unspecified whether neurogenic claudication present History of 2018 novel coronavirus disease (COVID-19) Ambulatory dysfunction Generalized weakness Ordered: 10/04/2023 OCCUPATIONAL THERAPY REFERRAL OP Referral Within 3 days (urgent) Primary osteoarthritis of both hands Spinal stenosis of lumbar region, unspecified whether neurogenic claudication present History of 2018 novel coronavirus disease (COVID-19) Ambulatory dysfunction Generalized weakness Ordered: 10/04/2023 Health Maintenance Due Date Last Done Comments DTaP,Tdap,and Td Vaccines (2 - Td or Tdap) 10/11/2022 10/11/2012, 2007 Depression Screening 12/29/2022 12/29/2021 COVID-19 Vaccine (3 - 2022- season) 2023 11/03/2020, 10/13/2020 HbA1c 07/18/2024 07/18/2023, 06/04, 12/18/2019, Additional history exists GFR 10/01/2024 10/01/2023, 09/04, 09/19/2023, Additional history exists Albumin/Creatinine Ratio 07/03/2025 07/03/2022 Pneumococcal Vaccine: 65+ Years Completed 02/09/2017, 01/27/2015, 07/21/2003 Zoster Vaccines Completed 12/03/2018, 110 02/2018, 10/25/2011 Influenza Vaccine (FLU shot) Completed [...] Generalized weakness- Primary Other malaise and fatigue History of 2018 novel coronavirus disease (COVID-19) Hyponatremia Hyposmolality and/or hyponatremia Dyslipidemia, goal to be determined Other and unspecified hyperlipidemia Primary osteoarthritis of both hands Spinal stenosis of lumbar region, unspecified whether neurogenic claudication present Seborrheic dermatitis Seborrheic dermatitis, unspecified HTN, goal below 150/90 Prediabetes Other abnormal glucose Acute cystitis with hematuria Acute cystitis Ambulatory dysfunction Alcohol use DOROTHY (generalized anxiety disorder) Generalized anxiety disorder documented in this encounter Care Teams Automatic Gluing Machine Operator Relationship Specialty Start Date End Date Jerry Medrano III, MD [address] [place] [place] [address] PCP - General Family Medicine 10/21/18 documented as of this encounter
--- OUTSIDE RECORDS SUMMARY | 2023-11-23 23:42 | External Medical Summary ---
Author Name Unknown Address Unknown Organization [id number]:[facility] [place] [address] [facility] [address] Laboratory Report Ordering Provider Test Date Status ANAI LEAL 10/02/2023 13:30:00 Final <10,000 colonies/ml mixed no rmal adrian Observation Date Value Abnormality Reference (Units ) Status Bacteria identified in Specimen by Culture 10/02/2023 13:30:00 [id number]^ESCHE RICHIA COLI Abnormal Final >100,000 colonies/mL Escheri nolvia coli Performing Location [facility] [place] [address] [facility] [address] Ordering Provider Test Date Status ANAI LEAL 10/02/2023 13:30:00 Final Observation Date Value Abnormality Reference (Units ) Status Ampicillin 10/02/2023 13:30:00 8 Susceptible Final Cefazolin 10/02/2023 13:30:00 <=4 Susceptible Final Cefepime susceptibility 10/02/2023 13:30:00 <=1 Susceptible Final Ceftriaxone suceptibility 10/02/2023 13:30:00 <=1 Susceptible Final Ciprofloxacin 10/02/2023 13:30:00 <=0.25 Susceptible Final Due to serious side effects, the FDA has advised against using Ciprofloxacin to treat uncomplicated UTIs and respiratory tract infections unless there are no alternative treatment options. Gentamicin susceptibility 10/02/2023 13:30:00 <=1 Susc eptible Final Nitrofurantoin susceptibility 10/02/2023 13:30:00 <=16 Susceptible Final Piperacillin + Tazobactamsusceptibility 10/02/2023 13:30:00 <=4 Susceptible Final TMP-SMZ susceptibility 10/02/2023 13:30:00 <=20 Suscept ible Final Test: Culture, Urine, Quanti tative
Specimen Source: Urine, Clean Catch
Specimen Type: Urine
Specimen Date: 10/02/2023 1:30 PM
Result Date: 10/05/2023 2:24 PM
Result Status: Final result
Abnormal: Yes
Resulting Lab: [facility] [place]
[address]
[facility] [address]

CULTURE

>100,000 colonies/mL Escherichia coli (Abnormal)

<10,000 colonies/ml mixed normal adrian

SUSCEPTIBILITY

Escherichia coli
METHOD MICROBROTH DILUTIONS

AMPICILLIN 8 Susceptible
CEFAZOLIN <=4 Susceptible
CEFEPIME <=1 Susceptible
CEFTRIAXONE <=1 Susceptible
CIPROFLOXACIN <=0.25 Susceptible [1]
GENTAMICIN <=1 Susceptible
NITROFURANTOIN <=16 Susceptible
PIPERACILLIN TAZOBACTAM <=4 Susceptible
TRIMETH/SULFAMETHOXAZOLE <=20 Susceptible

[1] Due to serious side effects, the FDA has advised against using
Ciprofloxacin to treat uncomplicated UTIs and respiratory tract infections
unless there are no alternative treatment options.

null Performing Location [facility] [place] [address] [facility] [address]
--- OUTSIDE RECORDS SUMMARY | 2023-11-23 23:42 | External Medical Summary | Summary of Care ---
Author Name Unknown Organization [facility] Address [address] [place] [address] Phone [phone] Care Team Providers Care Global Marketing Coordinator Name Role Phone Mitchell ROMAN MD, Jerry Cerda Primary Care Provider [phone] Reason for Visit * Reason Onset Date Comments Shelter Visit - Admission 09/20/2023 Encounter Details Date Type Department Care Team (Latest Contact Info) Description 09/20/2023 9:00 AM EST Shelter Visit [facility] [place] [address] [place] [address] Erik Evans MD [address] [place] [address] [place] [address] History of 2019 novel coronavirus disease (COVID-19)*; SIADH (syndrome of inappropriate ADH production) ([facility]); Hyponatremia; PAF (paroxysmal atrial fibrillation) ([facility]); HTN, goal below 140/90; Prediabetes; Spinal stenosis of lumbar region, unspecified whether neurogenic claudication present; Dyslipidemia; Alcohol use Allergies No known active allergiesdocumented as of this encounter (statuses as of 09/20/2023) Medications Medication Sig Dispensed Refills Start Date [...] Oral Tablet Extended Release 24 Hour (Glucophage XR)Indications:Impa ired fasting glucose TAKE 1 TABLET BY MOUTH [...] 09/17/2023 Atorvastatin Calcium 40 MG Oral Tablet (Lipitor)Indication s:Dyslipidemia, goal to be determined TAKE 1 TABLET BY MOUTH EVERY DAY 90 Tablet 1 03/29/2023 Active [facility] Vitamin B-12 1000 MCG Oral Tablet (vitamin b 12) TAKE 1 TABLET BY MOUTH EVERY DAY 100 Tablet 3 05/28/2023 Active Meloxicam 7.5 MG Oral Tablet (Mobic)Indications: Primary osteoarthritis of both hands TAKE 1 TABLET [...] 1 Tablet before bedtime. 0 09/20/2023 Active Furosemide 40 MG Oral Tablet (Lasix) Take 1 Tablet by mouth in the morning. 0 Discontinu ed(Refill) documented as of this encounter (statuses as of 09/20/2023) Active Problems Problem Noted Date Diagnosed Date [...] as of this encounter (statuses as of 09/20/2023) Resolved Problems Problem Noted Date Diagnosed Date [...] as of this encounter (statuses as of 09/20/2023) Immunizations Name Administration Dates Next Due COVID-19 [...] as of this encounter Progress Notes * Erik Evans MD - 09/20/2023 10:58 AM EST ADMISSION HISTORY and PHYSICAL TRANSITION EVENT: Type: SNF admission Date: September 14 Code Status: No Code Name: Severino Green Date of : 1940 This note pertains to [place] [facility] [place] Please see facility medical record for original note. This note is not to be edited or addended in [employer]. Editing or addending needs to occur in the facilities medical record. S: Severino Green had been admitted to [facility] from [facility] for PT and OT. Recently admitted to [facility] on 08/30/23 because of COVID-19 infection and hyponatremia and was transferred here and admitted on 09/14/23. Patient of Dr. Medrano with PMH of hypertension, dyslipidemia, PAF, prediabetes, and lumbar spinal stenosis who presented to the ED with progressive weakness and 2 weeks of upper respiratory symptoms. In the ED, he had a fever and was given ceftriaxone. Respiratory pathogen testing waspositive for COVID-19. CXR was negative for acute findings. His sodium was noted to be low and remained around 127-128 with elevated osmolarity and high urine sodium. He was seen by nephrology. His In dapamide was discontinued and he was started on Lasix 40 mg daily along with a potassium supplement. He was also placed on 1500 ml fluid restriction and remained hyponatremia. He is to follow-up withnephrology in 1-2 weeks. Recommended to avoid thiazide type diuretics. Patient also noted to have been drinking 6-7 beers a day prior to hospital admission. [place] to have a component of SIADH along with thiazide and alcohol use causing hyponatremia. He was [...] for him any longer and considering personal long term after discharge from this facility. Patient states [...] improved to 130 from 128 on 09/17/23. Patient reports chronic low back pain from lumbar spinal stenosis. It is unchanged. Has some trouble with his hands due to carpal tunnel and arthritis. Appetite is good. Results for orders placed or performed in visit on 09/19/23 BASIC METABOLIC PANEL Result Value Ref Range BUN 25 (H) 6 - 20 mg/dL Creatinine 0.9 0.6 - 1.2 mg/dL Estimated Glomerular Filtration Rate 85 >=60 mL/min Sodium 130 (L) 135 - 146 mmol/L Potassium 4.5 3.5 - 5.1 mmol/L Chloride 93 (L) 98 - 107 mmol/L CO2 28 22 - 32 mmol/L Anion Gap 9 7 - 15 mmol/L Glucose 101 70 - 120 mg/dL Calcium 9.6 8.4 - 10.2 mg/dL CBC Results: Results for orders placed or performed in visit on 09/17/23 CBC Result Value Ref Range WBC 11.49 (H) 4.00 - 10.80 K/uL RBC 4.45 4.50 - 5.25 M/uL HGB 14.8 14.0 - 16.8 g/dL HCT 42.8 40.0 - 48.4 % MCV 96.2 82.0 - 99.5 fL MCH 33.3 27.0 - 34.0 pg MCHC 34.6 32.0 - 36.0 g/dL RDW 12.5 11.5 - 15.5 % PLT 298 140 - 400 K/uL MPV 11.7 6.6 - 11.1 fL Past Medical History: Patient Active Problem List Diagnosis Code HTN, goal below 140/90 I10 ADVANCE DIRECTIVE INFORMATION Lumbar spinal stenosis M48.061 Dyslipidemia E78.5 PAF (paroxysmal atrial fibrillation) ([facility]) I48.0 Esophageal obstruction K22.2 Prediabetes R73.03 Hyponatremia E87.1 SIADH (syndrome of inappropriate ADH production) ([facility]) E22.2 Alcohol use Z78.9 Current Outpatient Medications Medication Sig Dispense Refill Furosemide 40 MG Oral Tablet (Lasix) Take 1 Tablet by mouth in the morning and 1 Tablet before bedtime. Multiple Vitamins-Minerals (OCUVITE-LUTEIN) TABS Take 1 Tab by mouth daily. Propylene Glycol 0.6 % Ophthalmic Solution Instill 1 Drop into both eyes in the morning. Acetaminophen 500 MG Oral Tablet Take 1 Tablet by mouth every 6 hours as needed for Pain. Cholecalciferol (VITAMIN D-3) 25 MCG (1000 UT) Capsule 1 Capsule at bedtime. metFORMIN HCl ER 500 MG Oral Tablet Extended Release 24 Hour (Glucophage XR) TAKE 1 TABLET BY MOUTHEVERY DAY 90 Tablet 2 Gabapentin 100 MG Oral Capsule (Neurontin) Take 1 Capsule by mouth in the morning and 1 Capsule at noon and 1 Capsule before bedtime. (Patient taking differently: Take by mouth. Takes twice daily - 100 mg in AM and 200 mg at bedtime) 90 Capsule 5 Atorvastatin Calcium 40 MG Oral Tablet (Lipitor) TAKE 1 TABLET BY MOUTH EVERY DAY 90 Tablet 1 [facility] Vitamin B-12 1000 MCG Oral Tablet (vitamin b 12) TAKE 1 TABLET BY MOUTH EVERY DAY 100 Tablet 3 Meloxicam 7.5 MG Oral Tablet (Mobic) TAKE 1 TABLET BY MOUTH IN THE MORNING. FOR PAIN.. 90 Tablet 0 Magnesium Oxide 400 MG Oral Tablet Take 1 Tablet by mouth in the morning and 1 Tablet before bedtime. Metoprolol Succinate ER 50 MG Oral Tablet Extended Release 24 Hour (Toprol XL) Take 1 Tablet by mouth in the morning and 1 Tablet before bedtime. Potassium Chloride ER 20 MEQ Oral Tablet Extended Release Take 1 Tablet by mouth in the morning. No current facility-administered medications for this visit. Review of patient's allergies indicates: No Known Allergies Social History Tobacco Use Smoking status: Former Packs/day: 0.50 Years: 10.00 Additional pack years: 0.00 Total pack years: 5.00 Types: Cigarettes Quit date: 09/12/1974 Years since quittin.0 Smokeless tobacco: Never Substance Use Topics Alcohol use: Yes Comment: 4 cans beer/day Vaping/E-Cigarette Use Vaping/E-Cigarette Substances Vaping/E-Cigarette Devices Past Surgical History: Procedure Laterality Date COLONOSCOPY, DIAGNOSTIC (RECTUM) 10/09/2018 adenomatous, hyperplastic & serrated adenomatous polyps, diverticulosis, repeat 6 mo / [facility] COLONOSCOPY, DIAGNOSTIC (RECTUM) 07/22/2019 hyperplastic polyp, fair prep, repeat 3 yrs/COLONOSCOPY FLEXIBLE PROXIMAL DIAGNOSTIC performed by Kun Tapia DO at ENDOSCOPY [facility] EGD, FLEXIBLE, DIAGNOSTIC 10/09/2018 gastritis, Schatzki ring / [facility] REMOVAL OF APPENDIX REMOVE TONSILS & ADENOIDS, UNDER 12 Family History Problem Relation Age of Onset Lung Disorder Brother copd Heart Disorder Mother chf, pvd @93 Lung Disorder Father silicosis tb @72 Family Status Relation Status Bro (Not Specified) Mo (Not Specified) Fa (Not Specified) Review of Systems: Constitutional ROS: No change in weight, No fevers, sweats, or chills, and +generalized weakness Eye ROS: No recent significant change in vision and No eye pain, redness, discharge Ear ROS: No ear pain, No drainage, No tinnitus or vertigo, and No recent change in hearing Nose ROS: No history of frequent colds or sinusitis, No nasal stuffiness, No history of Hay Fever, and No significant epistaxis Mouth/Throat ROS: No bleeding gums, No thrush, or No sore throat Pulmonary ROS: No cough, sputum, or hemoptysis, No wheezing, No shortness of breath, and No recent change in breathing Cardiovascular ROS: No chest pain, No shortness of breath, No dyspnea on exertion, No orthopnea, Noparoxysmal nocturnal dyspnea, No palpitations, No syncope, and edema improved. +PAF Gastrointestinal ROS: No abdominal pain, No change in bowel habits, No significant heartburn, No significant change in appetite, No nausea, vomiting, diarrhea, or constipation, No hematemesis, No blood in stools or black tarry stools, No abdominal bloating or early satiety, and No dysphagia Genito-Urinary Male ROS: No dysuria, No frequency, and No incontinence Musculoskeletal/Extremities ROS: +Lumbar spinal stenosis Hematologic/Lymphatic ROS: No coagulation disorder, No anemia, No abnormal bleeding, No chills, No bruising, No night sweats, and No weight loss Skin/Integumentary ROS: No rash Neurologic ROS: No headaches and No seizures Endocrine ROS: No heat intolerance, No cold intolerance, No thyroid trouble, and +prediabetes Psychiatric ROS: No depression, No anxiety, and No psychosis ADL skills: dependent Ambulates with walker OBJECTIVE: PHYSICAL EXAM: I reviewed the most recent facilities vitals. Refer to vital signs flowsheet in fpc chart.General: alert, no distress, well nourished, and well developed Head: Normocephalic, No masses, lesions, tenderness or abnormalities Eye Exam: PERRLA, extraocular movements intact, conjunctiva are pink and non- injected, sclera clear Ears: External ears normal Nose: no mucosal erythema, no mucosal edema, no purulent discharge Oropharynx: no exudate, no erythema, lips, buccal mucosa, and tongue normal, and mucous membranes are moist Neck: supple, no adenopathy, no bruits Heart: regular rate & rhythm, no murmur, and no gallops Lungs: chest symmetric with normal AP diameter, no chest deformities noted, no chest wall tenderness, lungs clear to auscultation Abdomen: abdomen soft, non-tender, normal bowel sounds, and no masses or organomegaly Extremities: no clubbing, no cyanosis, +chronic venous stasis changes bilaterally with flaky, wrinkled skin but no edema bilaterally Neuro Exam: alert & oriented x 3 with fluent speech, no focal motor/sensory deficits ASSESSMENT: History of 2019 novel coronavirus disease (COVID-19) (Primary)--resolved. Here for PT/OT. SIADH (syndrome of inappropriate ADH production) ([facility])--continue fluid restriction but will increase to 1800 mL at patient insistence and monitor BMP closely. Also, sodium now improved to 130 with increased dosing of Lasix to 40mg twice daily. Patient has been noncompliant with the restriction. Hyponatremia--as above PAF (paroxysmal atrial fibrillation) (HCC)--rate controlled with metoprolol succinate 50 mg twice daily. HTN, goal below 140/90--controlled currently with just the metoprolol succinate 50 mg twice daily. Lisinopril, amlodipine, and indapamide were all discontinued due to hypotension. Could restart amlodipine or lisinopril if BP trends up. Avoid thiazides due to hyponatremia. Prediabetes--stable. No need for routine monitoring. Spinal stenosis of lumbar region, unspecified whether neurogenic claudication present--continue Tylenol and meloxicam as needed . Dyslipidemia--continue atorvastatin 40 mg daily Alcohol use--had been drinking 6-7 beers daily at home. No signs of withdrawal. PLAN: 1. Continue present medication(s): Schedule labs: BMP on 09/24/23 Patient education: Discussed importance of following fluid restriction to minimize risks of hyponatremia. Will increase fluid restriction to 1800 mL as sodium is improved to 130 on Lasix 40 mg twice daily and due to patient strongly insisting on increasing even a little bit. Reports his mouth feels like cotton. Repeat BMP 09/24/23. Also, keep follow-up with nephrology on 10/17/23 as scheduled. 2. Admission orders, medications, labs, hospital records and care plan reviewed. 3. Used Car Manager consult, Physical Therapy, Occupational Therapy, and Speech Therapy ordered. 4. Care plan reviewed. 5. Advance Directives were discussed: The patient is a DNR 6. Senior Care Home Treatment Given: n/a Electronically signed by: Erik Evans MD I spent a total of 53 minutes coordinating, documenting, and providing care for this patient excluding time spent in the performance of separately billed services or time spent by another provider/QHP. documented in this encounter Plan of Treatment Upcoming Encounters Date Type Department Care Team (Late st Contact Info) Description 10/17/2023 1:00 PM EST Office Visit Nephrology, [facility] [address] [place] [address] Jamie Viera MD [address] [place] [address] 12/06/2023 1:00 PM EDT Office Visit Family Practice [facility] [place] [address] [place] [address] Jerry Medrano III, MD [address] [place] [address] Scheduled Procedures Name Priority Associated Diagnoses Date/Ti me COLONOSCOPY FLEXIBLE PROXIMAL DIAGNOSTIC Recall History of colon polyps Health Maintenance Due Date Last Done Comments DTaP,Tdap,and Td Vaccines (2 - Td or Tdap) 10/11/2022 10/11/2012, 2007 Depression Screening 12/29/2022 12/29/2021 COVID-19 Vaccine (3 - 2022- season) 2023 11/03/2020, 10/13/2020 HbA1c 07/18/2024 07/18/2023, 06/04, 12/18/2019, Additional history exists GFR 09/19/2024 09/19/2023, 09/03, 07/18/2023, Additional history exists Albumin/Creatinine Ratio 07/03/2025 07/03/2022 [...] as of this encounter Visit Diagnoses Diagnosis History of 2019 novel coronavirus disease (COVID-19)- Primary SIADH (syndrome of inappropriate ADH production) (HCC) Other disorders of neurohypophysis Hyponatremia Hyposmolality and/or hyponatremia PAF (paroxysmal atrial fibrillation) (HCC) Atrial fibrillation HTN, goal below 140/90 Unspecified essential hypertension Prediabetes Other abnormal glucose Spinal stenosis of lumbar region, unspecified whether neurogenic claudication present Dyslipidemia Other and unspecified hyperlipidemia Alcohol use documented in this encounter Care Teams Global Marketing Coordinator Relationship Specialty Start Date End Date Jerry Medrano III, MD [address] [place] [address] PCP - General Family Medicine 10/21/18 documented as of this encounter
--- OUTSIDE RECORDS SUMMARY | 2023-11-23 23:42 | External Medical Summary | Summary of Care ---
Author Name Unknown Organization [facility] Address [address] [place] [address] Phone [phone] Care Team Providers Care Placement Specialist Name Role Phone Mitchell ROMAN MD, Jerry Cerda Primary Care Provider [phone] Reason for Visit * Reason Onset Date Comments Skilled Visit 10/02/2023 Encounter Details Date Type Department Care Team (Late st Contact Info) Description 10/02/2023 9:00 AM EST Fpc Visit [facility], [address] [place] [address] Odalys Roy PA-C [address] [place] [address] Generalized weakness*; Spinal stenosis of lumbar region, unspecified whether neurogenic claudication present; Ambulatory dysfunction; Dysuria; Urinary urgency; Urinary frequency; Hyponatremia Allergies No known active allergiesdocumented as [...] Sign Reading Time Taken Comments Blood Pressure 120/49 10/02/2023 2:27 PM EST Pulse 68 10/02/2023 2:27 PM EST Temperature 36.8 C (98.3 F) 10/02/2023 2:27 PM ES T Respiratory Rate 18 10/02/2023 2:27 PM EST Oxygen Saturation 99% 10/02/2023 2:27 PM EST room air Inhaled Oxygen Concentration - - Weight - - Height - - Body Mass Index - - documented in this encounter Plan of Treatment Upcoming Encounters Date Type Department Care Team (Late st Contact Info) Description 10/17/2023 1:00 PM EST Office Visit Nephrology, [facility] [address] [place] [address] Jamie Viera MD [address] [place] [address] 12/06/2023 1:00 PM EDT Office Visit Family Practice [facility] [address] [facility] [place] [address] Jerry Medrano III, MD [address] [facility] [place] [address] Scheduled Procedures Name Priority Associated Diagnoses Date/Ti [...] Generalized weakness- Primary Other malaise and fatigue Spinal stenosis of lumbar region, unspecified whether neurogenic claudication present Ambulatory dysfunction Dysuria Urinary urgency Urgency of urination Urinary frequency Hyponatremia Hyposmolality and/or hyponatremia documented in this encounter Care Teams Placement Specialist Relationship Specialty Start Date End Date Jerry Medrano III, MD [address] [place] [address] PCP - General Family Medicine 10/21/18 documented as of this encounter
--- OUTSIDE RECORDS SUMMARY | 2023-11-23 23:42 | External Medical Summary | Summary of Care ---
Author Name Unknown Organization [facility] Address [address] [place] [address] Phone [phone] Care Team Providers Care Concreter Name Role Phone Mitchell ROMAN MD, Jerry Cerda Primary Care Provider [phone] Reason for Visit * Reason Onset Date Comments Skilled Visit 09/26/2023 Encounter Details Date Type Department Care Team (Late st Contact Info) Description 09/26/2023 9:00 AM EST Fpc Visit [facility], [place] [address] [place] [address] Odalys Roy PA-C [address] [place] [address] Hyponatremia*; History of 2019 novel coronavirus disease (COVID-19); HTN, goal below 140/90; Seborrheic dermatitis; Generalized weakness Allergies No known active allergiesdocumented as of this encounter (statuses as of 09/26/2023) Medications Medication Sig Dispensed Refills Start Date [...] as of this encounter (statuses as of 09/26/2023) Active Problems Problem Noted Date Diagnosed Date [...] as of this encounter (statuses as of 09/26/2023) Resolved Problems Problem Noted Date Diagnosed Date [...] as of this encounter (statuses as of 09/26/2023) Immunizations Name Administration Dates Next Due COVID-19 [...] Sign Reading Time Taken Comments Blood Pressure 119/62 09/26/2023 11:01 AM EST Pulse 71 09/26/2023 11:01 AM EST Temperature 36.5 C (97.7 F) 09/26/2023 11:[address] Respiratory Rate 18 09/26/2023 11:01 AM EST Oxygen Saturation 98% 09/26/2023 11:01 AM EST room air Inhaled Oxygen Concentration - - Weight - - Height - - Body Mass Index - - documented in this encounter Progress Notes * Odalys Roy PA-C - 09/26/2023 9:00 AM EST Name: Severino Green Date of : 1940 This note pertains to care provided at [facility]. Please see facility record for original note. This note is not to be edited or addended in [employer]. Editing or addending needs to occur in the facility's medical record. Chief Complaint Patient presents with Skilled Visit TRANSITION EVENT: Type: Skilled visit Date: September 26 Code Status: No Code SUBJECTIVE: Severino Green is a 82 year old male HPI: short-term rehab pt recently hospitalized with COVID-19, incidentally found with hyponatremia,currently being managed with diuresis and fluid restriction. Currently taking around 2000 ml/day, he is more comfortable with this amount of fluid. He denies cough, dyspnea, chest pain, fever, chills, nausea, vomiting, diarrhea. He also notes an itchy, flaking rash on the face, he did shave yesterday. Pt participating with PT and OT with goal of discharge to personal care. He is not ambulating, standing with platform walker to transfer to wheelchair. Pt was mostly dependent on a scooter at home prior to his hospitalization. He requires hands on assistance with most ADLs at this time. PMH: Patient Active Problem List Diagnosis Code HTN, goal below 140/90 I10 ADVANCE DIRECTIVE INFORMATION Lumbar spinal stenosis M48.061 Dyslipidemia E78.5 PAF (paroxysmal atrial fibrillation) ([facility]) I48.0 Esophageal obstruction K22.2 Prediabetes R73.03 Hyponatremia E87.1 SIADH (syndrome of inappropriate ADH production) ([facility]) E22.2 Alcohol use Z78.9 Review of patient's allergies indicates: No Known Allergies Medications: Pt's current medication list is maintained at [facility] and was reviewed at this visit. Review of Systems: Per HPI OBJECTIVE: BP 119/62 | Pulse 71 | Temp 36.5 C (97.7 F) | Resp 18 | SpO2 98% Comment: room air General: alert and no distress Head: Normocephalic Eye Exam: extraocular movements intact, conjunctiva are pink and non-injected, sclera clear Oropharynx: lips, buccal mucosa, and tongue normal and mucous membranes are moist Heart: bradycardia, regular rhythm Lungs: chest symmetric with normal AP diameter, no chest deformities noted, no chest wall tenderness, lungs clear to auscultation Abdomen: abdomen soft, non-tender, normal bowel sounds, and no rebound or guarding. Midline hernia noted. Extremities: less than 2 second capillary refill, trace BLE edema Neuro Exam: alert & oriented x 3 with fluent speech, global weakness is noted Skin: rash of face noted - scaled plaques on red base on both cheeks in lemus area, left nasolabialfold with dry, flaking skin on red base ASSESSMENT/PLAN: long term chart (outside system) reviewed for vital signs, nursing notes, CODE STATUS, and most up to date medication list Most recent physical and occupational therapy notes reviewed Hyponatremia (Primary) Resolved Continue 2000 ml/day fluid restriction and lasix 40 mg twice daily. Recommend avoidance of alcohol. To follow up with nephrology History of 2019 novel coronavirus disease (COVID-19) Resolved HTN, goal below 140/90 Stable Seborrheic dermatitis Ketoconazole External Cream 2 % (Ketoconazole (Topical)) - Apply to face topically every morning and at bedtime for seborrheic dermatitis for 4 Weeks Generalized weakness Continue PT and OT with goal of discharge to personal care facility Discharge planning per social welfare research worker Follow up: 1-2 days and as needed I spent a total of 31 minutes coordinating, documenting, and providing care for this patient excluding time spent in the performance of separately billed services or time spent by another provider/QHP. documented in this encounter Plan of Treatment Upcoming Encounters Date Type Department Care Team (Late st Contact Info) Description 10/17/2023 1:00 PM EST Office Visit Nephrology, [place] [address] [place] [address] Jamie Viera MD [address] [place] [address] [place] [address] 12/06/2023 1:00 PM EDT Office Visit Family Practice [facility] [address] [place] [address] [place] Jerry ROMAN MD 200 [facility] [place] [address] Scheduled Procedures Name Priority Associated Diagnoses Date/Ti me COLONOSCOPY FLEXIBLE PROXIMAL DIAGNOSTIC Recall History of colon polyps Health Maintenance Due Date Last Done Comments DTaP,Tdap,and Td Vaccines (2 - Td or Tdap) 10/11/2022 10/11/2012, 2007 Depression Screening 12/29/2022 12/29/2021 COVID-19 Vaccine ( season) 2023 11/03/2020, 10/13/2020 HbA1c 07/18/2024 07/18/2023, [...] Diagnoses Diagnosis Hyponatremia- Primary Hyposmolality and/or hyponatremia History of 2018 novel coronavirus disease (COVID-19) HTN, goal below 140/90 Unspecified essential hypertension Seborrheic dermatitis Seborrheic dermatitis, unspecified Generalized weakness Other malaise and fatigue documented in this encounter Care Teams Concreter Relationship Specialty Start Date End Date Jerry Medrano III, MD [address] [place] [address] PCP - General Family Medicine 10/21/18 documented as of this encounter"
--- OUTSIDE RECORDS SUMMARY | 2023-11-23 23:42 | External Medical Summary | Summary of Care ---
Author Name Unknown Organization [facility] Address [address] [place] [address] Phone [phone] Care Team Providers Care Grain Farmworker Name Role Phone Mitchell ROMAN MD, Jerry Cerda Primary Care Provider [phone] Reason for Visit * Reason Comments Hospital Follow-Up Encounter Details Date Type Department Care Team (Latest Contact Info) Description 10/17/2023 1:00 PM EST [facility] [address] [facility] [place] [place] [address] Jamie Viera MD 200 [facility] [place] [address] SIADH (syndrome of inappropriate ADH production) ([facility])*; Hyponatremia Allergies No known active allergiesdocumented as of this encounter (statuses as of 10/17/2023) Medications Medication Sig Dispensed Refills Start Date [...] Apply to face/scalp 60 g 0 10/04/2023 Active Furosemide 40 MG Oral Tablet (Lasix)Indications: [...] mouth 2 times a day. 0 Active Meloxicam 7.5 MG Oral Tablet (Mobic)Indications: Primary osteoarthritis of both hands Take 1 Tablet by mouth in the morning. for pain.. 30 Tablet 0 10/04/2023 Discontinu ed([address]) documented as of this encounter (statuses as of 10/17/2023) Active Problems Problem Noted Date Diagnosed Date [...] as of this encounter (statuses as of 10/17/2023) Resolved Problems Problem Noted Date Diagnosed Date [...] as of this encounter (statuses as of 10/17/2023) Immunizations Name Administration Dates Next Due COVID-19 mRNA, LNP-s, No Pre serve, 2-Dose Series ([facility]) 11/03/2020,10/13/2020 PPD 03/21/2023 Pneumococcal Conjugate Vacc, 13 [...] Sign Reading Time Taken Comments Blood Pressure 114/75 10/17/2023 1:02 PM EST Pulse 67 10/17/2023 1:02 PM EST Temperature 36.2 C (97.1 F) 10/17/2023 1:02 PM ES T Respiratory Rate 18 10/17/2023 1:02 PM EST Oxygen Saturation - - Inhaled Oxygen Concentration - - Weight - - Height - - Body Mass Index - - documented in this encounter Progress Notes * Jamie Viera MD - 10/17/2023 1:41 PM EST Subjective: Severino Green is a 82 year old male. Chief Complaint Patient presents with Hospital Follow-Up HPI: 82-year-old male whom I saw in the hospital in September 12, 2023 for hyponatremia in the setting of COVID-19 infection. He was on indapamide and also had low blood pressure. Sodium did not get better quickly even though indapamide was stopped. He was discharged on Lasix 40 daily and potassium chloride 20 mEq daily. Since beingDischarged Lasix was increased to 40 twice daily which he is currently taking. Prior to hospitalization patient was drinking about 6-8 beers every day and he does not like being on fluid restriction. Since being discharged has had multiple blood work on September 17 and most recently on . The last 2 blood work are normal at 135 and 137 with normal kidney function. These blood tests weredone while on Lasix 40 twice daily. Patient was at [facility] after hospitalization and now he is at [facility]. Patient is here with his . He is not happy taking so many medications and wanted his medication list to be trimmed NSAID Yes, currently on daily meloxicam. Renal Stone No Herbal Medication No Urinary Complaints Yes, has nocturia and some incontinence. He uses diapers at night Current Outpatient Medications Medication Sig Dispense Refill Propylene Glycol 0.6 % Ophthalmic Solution Instill 1 Drop into both eyes in the morning. Acetaminophen 500 MG Oral Tablet Take 1 Tablet by mouth every 6 hours as needed for Pain. Atorvastatin Calcium 40 MG Oral Tablet (Lipitor) [...] 1 Tablet before bedtime. 60 Tablet 0 metFORMIN HCl 500 MG Oral [...] mouth in the morning. 30 Capsule 0 Docusate Sodium 50 MG Oral Capsule Take by mouth 2 times a day. [facility] Vitamin B-12 1000 MCG Oral Tablet (vitamin b 12) TAKE 1 TABLET BY MOUTH EVERY DAY (Patient not taking: Reported on 10/17/2023) 100 Tablet 3 No current facility-administered medications for this visit. Past Medical History: Diagnosis Date Chronic prostatitis Prostatitis, Chronic HTN, goal below 140/90 Hypertension Benign Sprain, lumbosacral chronic low back pain Umbilical hernia small Past Surgical History: Procedure Laterality Date COLONOSCOPY, DIAGNOSTIC (RECTUM) 10/09/2018 adenomatous, hyperplastic & serrated adenomatous polyps, diverticulosis, repeat 6 mo / [facility] COLONOSCOPY, DIAGNOSTIC (RECTUM) 07/22/2019 hyperplastic polyp, fair prep, repeat 3 yrs/COLONOSCOPY FLEXIBLE PROXIMAL DIAGNOSTIC performed by Kun Tapia DO at END[facility] EGD, FLEXIBLE, DIAGNOSTIC 10/09/2018 gastritis, Schatzki ring / [facility] REMOVAL OF APPENDIX REMOVE TONSILS & ADENOIDS, UNDER 12 Review of patient's allergies indicates: No Known Allergies Family History Problem Relation Age of Onset Lung Disorder Brother copd Heart Disorder Mother chf, pvd @93 Lung Disorder Father silicosis tb @72 Family History of Renal Disease No Social History Socioeconomic History Marital status: Spouse name: Not on file Number of children: Not on file Years of education: Not on file Highest education level: Not on file Occupational History Not on file Tobacco Use Smoking status: Former Packs/day: 0.50 Years: 10.00 Additional pack years: 0.00 Total pack years: 5.00 Types: Cigarettes Quit date: 09/12/1974 Years since quittin.1 Smokeless tobacco: Never Substance and Sexual Activity [...] on file Housing Stability: Not on file Ambulation: Wheel Chair Review of Systems: Positive for for some urinary symptoms. Some back pain noted specially on standing. Denies nausea vomiting chest pain shortness of breath orthopnea diarrhea. He does have pitting edema. OBJECTIVE: PHYSICAL EXAM: BP 114/75 | Pulse 67 | Temp 36.2 C (97.1 F) | Resp 18 General: alert and no distress Head: No masses, lesions, tenderness or abnormalities Neck: supple, no JVD, non-tender Heart: regular rate & rhythm and no murmur Lungs: normal respiratory rate and rhythm, lungs clear to auscultation Abdomen: abdomen soft, non-tender, and obese Back: no costovertebral angle tenderness Extremities: 1+ pitting edema bilaterally ( more than in hospital) Neuro Exam: alert & oriented x 3 with fluent speech, no focal motor/sensory deficits Skin: no rashes or significant lesions BP Readings from Last 4 Encounters: 10/17/23 114/75 10/02/23 120/49 09/28/23 105/54 09/26/23 119/62 Wt Readings from Last 4 Encounters: 09/21/23 92.6 kg (204 lb 3.2 oz) 09/17/23 91.1 kg (200 lb 12.8 oz) 10/16/22 109.3 kg (241 lb) 07/01/21 119.9 kg (264 lb 6.4 oz) Estimated body mass index is 29.3 kg/m as calculated from the following: Height as of 07/18/23: 1.778 m (5' 10"). Weight as of 09/21/23: 92.6 kg (204 lb 3.2 oz). Latest Reference Range & Units 09/17/23 05:23 09/19/23 05:45 09/24/23 05:45 10/01/23 05:40 Sodium 135 - 146 mmol/L 128 (L) 130 (L) 135 137 Potassium 3.5 - 5.1 mmol/L 4.6 4.5 4.7 3.9 Chloride 98 - 107 mmol/L 91 (L) 93 (L) 98 101 CO2 22 - 32 mmol/L 24 28 28 26 BUN 6 - 20 mg/dL 37 (H) 25 (H) 17 11 Creatinine 0.6 - 1.2 mg/dL 0.9 0.9 0.9 0.8 Estimated Glomerular Filtration Rate >=60 mL/min 85 85 84 88 Anion Gap 7 - 15 mmol/L 13 9 9 10 Glucose 70 - 120 mg/dL 100 101 97 84 Calcium 8.4 - 10.2 mg/dL 10.0 9.6 9.4 9.0 Magnesium 1.5 - 2.6 mg/dL 2.4 Phosphorus 2.5 - 4.8 mg/dL 2.8 ASSESSMENT: SIADH (syndrome of inappropriate ADH production) ([facility]) (Primary) Hyponatremia AcuteOn chronic hyponatremia for which he was evaluated by Nephrology September 2023. Etiology of hyponatremia was multifactorial with COVID-19 prior indapamide use. However even after many days of stopping indapamide sodium did not rise and urine findings were consistent with SIADH. But he was also drinking a lot of fluid and now also has significant bilateral pitting edema His sodium was 128 few days after discharge but with higher dose of Lasix sodium is now normal at 137 on his last checkup. Will do labs as below today Patient was complaining of being on too many medications and once his medication list to be trimmed We discussed that he can stop meloxicam which being an NSAID causes fluid retention higher blood pressure and also worsened hyponatremia. He says he can do that Hopefully we should be able to manage with once daily magnesium and maybe nothing. Will know about this after the blood work today For now continue Lasix 40 twice daily as well as potassium 20 mEq daily. He does have lot more edema now than when I saw him in the hospital. Prior to hospitalization he was drinking 6-8 beers every day. And he does not like fluid restriction. Given his urinary symptoms he does not want Lasix dose to be increased at all. Despite extensive edema his breathing seems relatively stable so will continue current dose of Lasix Hopefully with stopping NSAIDs and drinking slightly less fluid - RENAL FUNCTION PANEL; Future; Expected date: 10/17/2023 - MAGNESIUM; Future; Expected date: 10/17/2023 Extensive hospital note consultation note admission H and P as well as discharge summary was reviewed in detail. Communication made with assisted living regarding medication list. As well as communicating regarding medication change and the plan as above I spent a total of Greater than 55 mins (exact time 58 mins) on the date of service in preparation,delivery, and documentation of the care provided to Severino Green excluding any time spent in the performance of separately billed services. Follow Up: Return in about 6 months (around 04/16/2024) for Clinic Visit. | For: Clinic Visit Jamie Viera MD documented in this encounter Nursing Notes * Yesi Lancaster RN - 10/17/2023 1:15 PM EST Hospital follow up visit. Now resides in an assisted living facility due to mobility issues. Some pitting edema noted lower legs. is present in room for visit. documented in this encounter Plan of Treatment Upcoming Encounters Date Type Department Care Team (Late st Contact Info) Description 12/06/2023 1:00 PM EDT Office Visit Family Practice [address] [place], [place] [address] MitchellJerry hoover III, MD [address] [facility] [place] [address] 07/21/2024 2:00 PM EST Office Visit Nephrology, [address] [place] [address] Jamie Viera MD [address] [facility] [place] [address] Pending Results Name Type Priority Associated Diagnoses Date /Time MAGNESIUM Lab Routine SIADH (syndrome of inappropriate ADH production) (HCC) Hyponatremia 10/17/2023 2:02 PM EST Scheduled Orders Name Type Priority Associated Diagnoses Orde r Schedule MAGNESIUM Lab Routine SIADH (syndrome of inappropriate ADH production) (HCC) Hyponatremia Expected: 10/17/2023 (Approximate), Expires: 04/14/2024 Scheduled Procedures Name Priority Associated Diagnoses Date/Ti me COLONOSCOPY FLEXIBLE PROXIMAL DIAGNOSTIC Recall History of colon polyps Health Maintenance Due Date Last Done Comments DTaP,Tdap,and Td Vaccines (2 - Td or Tdap) 10/11/2022 10/11/2012, 10/11/2012, 2007 Depression Screening 12/29/2022 12/29/2021 COVID-19 Vaccine (3 - 2022- season) 2023 11/03/2020, 11/03/2020, 10/13/2020, Additional history exists HbA1c 07/18/2024 07/18/2023, 06/04, [...] as of this encounter Visit Diagnoses Diagnosis SIADH (syndrome of inappropriate ADH production) (HCC)- Primary Other disorders of neurohypophysis Hyponatremia Hyposmolality and/or hyponatremia documented in this encounter Care Teams Grain Farmworker Relationship Specialty Start Date End Date Jerry Medrano III, MD [address] [facility] [place] [address] PCP - General Family Medicine 10/21/18 documented as of this encounter
--- OUTSIDE RECORDS SUMMARY | 2023-11-23 23:42 | External Medical Summary | Summary of Care ---
Author Name Unknown Organization [facility] Address [address] [place] [address] Phone [phone] Care Team Providers Care Services Executive Name Role Phone Mitchell ROMAN MD, Jerry Cerda Primary Care Provider [phone] Reason for Visit * Reason Onset Date Comments Skilled Visit 09/28/2023 Encounter Details Date Type Department Care Team (Late st Contact Info) Description 09/28/2023 2:30 PM EST Skilled Nursing Visit [facility], [place] [address] [place] [address] Odalys Roy PA-C [address] [place] [address] Hyponatremia*; History of 2019 novel coronavirus disease (COVID-19); Generalized weakness Allergies No known active allergiesdocumented as of this encounter (statuses as of 09/28/2023) Medications Medication Sig Dispensed Refills Start Date [...] as of this encounter (statuses as of 09/28/2023) Active Problems Problem Noted Date Diagnosed Date [...] as of this encounter (statuses as of 09/28/2023) Resolved Problems Problem Noted Date Diagnosed Date [...] as of this encounter (statuses as of 09/28/2023) Immunizations Name Administration Dates Next Due COVID-19 mRNA, LNP-s, No Pre serve, 2-Dose Series ([facility]) 11/03/2020,10/13/2020 PPD 03/21/2023 Pneumococcal Conjugate Vacc, 13 [...] Sign Reading Time Taken Comments Blood Pressure 105/54 09/28/2023 3:01 PM EST Pulse 64 09/28/2023 3:01 PM EST Temperature 36.2 C (97.2 F) 09/28/2023 3:01 PM ES T Respiratory Rate 16 09/28/2023 3:01 PM EST Oxygen Saturation 98% 09/28/2023 3:01 PM EST room air Inhaled Oxygen Concentration - - Weight - - Height - - Body Mass Index - - documented in this encounter Plan of Treatment Upcoming Encounters Date Type Department Care Team (Late st Contact Info) Description 10/17/2023 1:00 PM EST Office Visit Nephrology, [facility] [address] [place] [address] Jamie Viera MD [address] [place] [address] 12/06/2023 1:00 PM EDT Office Visit Family Practice [facility] [address] [place] [address] Jerry Medrano III, MD [address] [place] [address] Scheduled Procedures Name Priority Associated Diagnoses Date/Ti [...] Hyponatremia- Primary Hyposmolality and/or hyponatremia History of 2019 novel coronavirus disease (COVID-19) Generalized weakness Other malaise and fatigue documented in this encounter Care Teams Services Executive Relationship Specialty Start Date End Date Jerry Mderano III, MD [address] [place] [address] PCP - General Family Medicine 10/21/18 documented as of this encounter
--- OUTSIDE RECORDS SUMMARY | 2023-11-23 23:42 | External Medical Summary ---
Author Name Unknown Address Unknown Organization K09:[facility] [place] [address] Laboratory Report Ordering Provider Test Date Status JOCELYN DUBOIS 10/17/2023 14:02:40 Final Observation Date Value Abnormality Reference (Units ) Status Magnesium 10/17/2023 14:02:40 2.1 1.5-2.6 (m g/dL) Final Performing Location [facility] [place] [place] [address]
--- OUTSIDE RECORDS SUMMARY | 2023-11-23 23:42 | External Medical Summary | Summary of Care ---
Author Name Unknown Organization [facility] Address [address] [place] [address] Phone [phone] Care Team Providers Care Cloth Inspector Name Role Phone Mitchell ROMAN MD, Jerry Cerda Primary Care Provider [phone] Reason for Visit * Reason Onset Date Comments Skilled Visit 09/21/2023 Encounter Details Date Type Department Care Team (Late st Contact Info) Description 09/21/2023 9:30 AM EST Assisted Visit [facility] [place] [address] [place] [address] Odalys Roy PA-C [address] [place] [address] Hyponatremia*; HTN, goal below 140/90; Prediabetes; History of 2019 novel coronavirus disease (COVID-19) Allergies No known active allergiesdocumented as of this encounter (statuses as of 09/21/2023) Medications Medication Sig Dispensed Refills Start Date [...] as of this encounter (statuses as of 09/21/2023) Active Problems Problem Noted Date Diagnosed Date [...] as of this encounter (statuses as of 09/21/2023) Resolved Problems Problem Noted Date Diagnosed Date [...] as of this encounter (statuses as of 09/21/2023) Immunizations Name Administration Dates Next Due COVID-19 mRNA, LNP-s, No Pre serve, 2-Dose Series (PROSimity) 11/03/2020,10/13/2020 PPD 03/21/2023 Pneumococcal Conjugate Vacc, 13 [...] Sign Reading Time Taken Comments Blood Pressure 106/60 09/21/2023 11:08 AM EST Pulse 65 09/21/2023 11:08 AM EST Temperature 36.7 C (98 F) 09/21/2023 11:08 AM EST Respiratory Rate 18 09/21/2023 11:08 AM EST Oxygen Saturation 95% 09/21/2023 11:08 AM EST room air Inhaled Oxygen Concentration - - Weight 92.6 kg (204 lb 3.2 oz) 09/21/2023 11:08 AM EST Height - - Body Mass Index 29.3 07/18/2023 4:20 PM EST documented in this encounter Plan of Treatment Upcoming Encounters Date Type Department Care Team (Late st Contact Info) Description 10/17/2023 1:00 PM EST Office Visit [facility] [address] [place] [address] Jamie Viera MD [address] [place] [address] 12/06/2023 1:00 PM EDT Office Visit Family Practice [employer] [address] [facility] [place] [address] Jerry Medrano III, MD [address] [facility] [place] [address] Scheduled Procedures Name Priority Associated Diagnoses Date/Ti [...] Diagnoses Diagnosis Hyponatremia- Primary Hyposmolality and/or hyponatremia HTN, goal below 140/90 Unspecified essential hypertension Prediabetes Other abnormal glucose History of 2018 novel coronavirus disease (COVID-19) documented in this encounter Care Teams Cloth Inspector Relationship Specialty Start Date End Date Jerry Medrano III, MD [address] [place] [address] PCP - General Family Medicine 10/21/18 documented as of this encounter
--- OUTSIDE RECORDS SUMMARY | 2023-11-23 23:42 | External Medical Summary | Summary of Care ---
Author Name Unknown Organization [facility] Address [address] [place] [address] Phone [phone] Care Team Providers Care Stone And Concrete Washer Name Role Phone Mitchell ROMAN MD, Jerry Cerda Primary Care Provider [phone] Reason for Visit * Reason Onset Date Comments Test Results 10/18/2023 Encounter Details Date Type Department Care Team (Late st Contact Info) Description 10/18/2023 Telephone Nephrology, [facility] [address] [facility] [address] Jamie Viera MD [address] [facility] [address] Test Results Allergies No known active allergiesdocumented as of this encounter (statuses as of 10/18/2023) Medications Medication Sig Dispensed Refills Start Date [...] as of this encounter (statuses as of 10/18/2023) Active Problems Problem Noted Date Diagnosed Date Hyponatremia 09/20/2023 SIADH (syndrome of inappropriate ADH production) 09/20/2023 Alcohol use 09/20/2023 Esophageal obstruction 09/15/2019 PAF (paroxysmal atrial fibrillation) 08/14/2019 Dyslipidemia 07/17/2018 Lumbar spinal stenosis 09/01/2013 ADVANCE DIRECTIVE INFORMATION 01/06/2005 Overview: No, Advance Directive brochure offered , patient declined. HTN, goal below 140/90 documented as of this encounter (statuses as of 10/18/2023) Resolved Problems Problem Noted Date Diagnosed Date [...] as of this encounter (statuses as of 10/18/2023) Immunizations Name Administration Dates Next Due COVID-19 mRNA, LNP-s, No Pre serve, 2-Dose Series ([employer]) 11/03/2020,10/13/2020 PPD 03/21/2023 Pneumococcal Conjugate Vacc, 13 [...] encounter Miscellaneous Notes * Telephone Encounter - Yesi Lancaster RN - 10/18/2023 8:52 AM EST TE with Yesi at [facility] regarding lab results and change in medication doses. Copy of office note and orders faxed to facility. * Telephone Encounter - Yesi Lancaster RN - 10/18/2023 8:52 AM EST ----- Message from Jamie Viera MD sent at 10/18/2023 8:36 AM EST ----- Continue current lasix and Kcl dose. He can however lower mag to once daily. Make sure to stop daily meloxicam. Forward to [facility] documented in this encounter Plan of Treatment Upcoming Encounters Date Type Department Care Team (Late st Contact Info) Description 12/06/2023 1:00 PM EDT Office Visit Family Practice [facility] [place] [address] [facility] [place] [address] Jerry Medrano III, MD [address] [facility] [place] [address] 07/21/2024 2:00 PM EST Office Visit Nephrology, [facility] [address] [facility] [place] [address] Jamie Viera MD [address] [facility] [place] [address] Scheduled Procedures Name Priority Associated Diagnoses Date/Ti [...] filedocumented as of this encounter Care Teams Stone And Concrete Washer Relationship Specialty Start Date End Date Jerry Medrano III, MD 200 [place] [address] PCP - General Family Medicine 10/21/18 documented as of this encounter
--- OUTSIDE RECORDS SUMMARY | 2023-11-23 23:42 | External Medical Summary | Summary of Care ---
Author Name Unknown Organization [facility] Address [address] [place] [address] Phone [phone] Care Team Providers Care Limerock Tower Loader Name Role Phone Mitchell ROMAN MD, Jerry Cerda Primary Care Provider [phone] Encounter Details Date Type Department Care Team (Late st Contact Info) Description 10/01/2023 Orders Only Lab [place]bot[place] [facility] [place] [address] [place], [place] [id number] Odalys Roy PA-C [address] [place] [address] Hyponatremia* Allergies No known active allergiesdocumented as of this encounter (statuses as of 10/01/2023) Medications Medication Sig Dispensed Refills Start Date [...] as of this encounter (statuses as of 10/01/2023) Active Problems Problem Noted Date Diagnosed Date [...] as of this encounter (statuses as of 10/01/2023) Resolved Problems Problem Noted Date Diagnosed Date [...] as of this encounter (statuses as of 10/01/2023) Immunizations Name Administration Dates Next Due COVID-19 mRNA, LNP-s, No Pre serve, 2-Dose Series (BUKA) 11/03/2020,10/13/2020 PPD 03/21/2023 Pneumococcal Conjugate Vacc, 13 [...] 10/17/2023 1:00 PM EST Office Visit Nephrology, [facility] [address] [place] [address] [address] Jamie Viera MD [address] [place] [address] 12/06/2023 1:00 PM EDT Office Visit Family Practice [facility] [address] [place] [address] [address] BennettJerry hoover III, MD [address] [place] [address] Scheduled Orders Name Type Priority Associated Diagnoses Orde r Schedule BASIC METABOLIC PANEL Lab Routine Hyponatremia Expected: 10/01/2023, Expires: 10/01/2024 Scheduled Procedures Name Priority Associated Diagnoses Date/Ti [...] Diagnoses Diagnosis Hyponatremia- Primary Hyposmolality and/or hyponatremia documented in this encounter Care Teams Limerock Tower Loader Relationship Specialty Start Date End Date Jerry Medrano III, MD 200 [facility] [place] [address] PCP - General Family Medicine 10/21/18 documented as of this encounter
--- OUTSIDE RECORDS SUMMARY | 2023-11-23 23:42 | External Medical Summary | Summary of Care ---
Author Name Unknown Organization [facility] Address [address] [place] [address] Phone [phone] Care Team Providers Care Senior Interior Designer Name Role Phone Mitchell ROMAN MD, Jerry Cerda Primary Care Provider [phone] Reason for Visit * Reason Comments Outpatient Testing Encounter Details Date Type Department Care Team (Late st Contact Info) Description 10/17/2023 2:10 PM EST Laboratory [facility] [address] [phone] [facility] [address] [place] [address] HTN, goal below 140/90; SIADH (syndrome of inappropriate ADH production) (HCC); Hyponatremia Allergies No known active allergiesdocumented as [...] mRNA, LNP-s, No Pre serve, 2-Dose Series ([employer] 11/03/2020,10/13/2020 PPD 03/21/2023 Pneumococcal Conjugate Vacc, 13 [...] [facility] [address] [place] [address] Jerry Medrano III, MD [address] [place] [address] 07/21/2024 2:00 PM EST Office Visit Nephrology, [facility] [address] [place] [address] Jamie Viera MD [address] [place] [address] Pending Results Name Type Priority Associated Diagnoses Date /Time RENAL FUNCTION PANEL Lab Routine HTN, goal below 140/90 10/17/2023 2:02 PM EST MAGNESIUM Lab Routine SIADH (syndrome of inappropriate ADH production) (HCC) Hyponatremia 10/17/2023 2:02 PM EST Scheduled Procedures Name Priority Associated [...] encounter Visit Diagnoses Diagnosis HTN, goal below 140/90 Unspecified essential hypertension SIADH (syndrome of inappropriate ADH production) (HCC) Other disorders of neurohypophysis Hyponatremia Hyposmolality and/or hyponatremia documented in this encounter Care Teams Senior Interior Designer Relationship Specialty Start Date End Date Jerry Medrano III, MD 200 [place] [address] PCP - General Family Medicine 10/21/18 documented as of this encounter
--- OUTSIDE RECORDS SUMMARY | 2023-11-23 23:42 | External Medical Summary ---
Author Name Unknown Address Unknown Organization [id number]:LABORATORY [facility] - [address] [facility] [address] Laboratory Report Ordering Provider Test Date Status ANAI LEAL 10/02/2023 13:30:00 Final Observation Date Value Abnormality Reference (Units ) Status Color of Urine by Auto 10/02/2023 13:30:00 Yellow Colorless, Light Yellow, Yellow, Dark Yellow Final Clarity, Urine 10/02/2023 13:30:00 Slightly Cloudy Abnormal Clear Final Glucose [Mass/volume] in Urine by Automated test strip 10/02/2023 13:30:00 Negative Negative (mg/dL) Final Bilirubin.total [Presence] in Urine by Automated test strip 10/02/2023 13:30:00 Negative Negative Final Ketones [Mass/volume] in Urine by Automated test strip 10/02/2023 13:30:00 Negative Negative (mg/dL) Final Specific gravity, Urine 10/02/2023 13:30:00 1.019 1.003-1.030 Final Hemoglobin [Presence] in Urine by Automated test strip 10/02/2023 13:30:00 Large Abnormal Negative Final pH, Urine 10/02/2023 13:30:00 6.5 5.0-7.5 (Units) Final Protein [Mass/volume] in Urine by Automated test strip 10/02/2023 13:30:00 30 Abnormal Negative (mg/dL) Final Urobilinogen [Mass/volume] in Urine by Automated test strip 10/02/2023 13:30:00 Normal Normal (mg/dL) Final Nitrite [Presence] in Urine by Automated test strip 10/02/2023 13:30:00 Negative Negative Final Leukocyte esterase [Presence] in Urine by Automated test strip 10/02/2023 13:30:00 Large Abnormal Negative Final RBC, Urine 10/02/2023 13:30:00 50+ Abnormal 0-2 (/HPF) Final WBC, Urine 10/02/2023 13:30:00 50+ Abnormal 0-2 (/HPF) Final Bacteria [#/area] in Urine sediment by Microscopy high power field 10/02/2023 13:30:00 0-25 0-25 (/HPF) Final Epithelial cells.renal [#/area] in Urine sediment by Microscopy high power field 10/02/2023 13:30:00 1-4 Abnormal None (/HPF) Final Leukocyte clumps [#/area] in Urine sediment by Microscopy high power field 10/02/2023 13:30:00 Present Abnormal None (/HPF) Final Performing Location LABORATORY [facility] - [address] [facility] [address]
--- OUTSIDE RECORDS SUMMARY | 2023-11-23 23:42 | External Medical Summary | Summary of Care ---
Author Name Unknown Organization [facility] Address [address] [place] [address] Phone [phone] Care Team Providers Care Pressure Tester Operator Name Role Phone Mitchell ROMAN MD, Jerry Cerda Primary Care Provider [phone] Encounter Details Date Type Department Care Team (Late st Contact Info) Description 09/24/2023 Orders Only Lab Mobile Phlebotomy [facility] [address] [place] [address] Odalys Roy PA-C [address] [place] [address] SIADH (syndrome of inappropriate ADH production) ([facility])* Allergies No known active allergiesdocumented as of [...] mRNA, LNP-s, No Pre serve, 2-Dose Series ([employer]Ther[employer]) 11/03/2020,10/13/2020 PPD 03/21/2023 Pneumococcal Conjugate Vacc, 13 [...] EST Office Visit Nephrology, [facility] [address] [place] [address] Jamie Viera MD [address] [place] [address] 12/06/2023 1:00 PM EDT [facility] [place] [address] [place] [address] Jerry Medrano III, MD [address] [facility] [place] [address] Scheduled Orders Name Type Priority Associated Diagnoses Orde r Schedule BASIC METABOLIC PANEL Lab Routine SIADH (syndrome of inappropriate ADH production) ([facility]) Expected: 09/24/2023, Expires: 09/24/2024 Scheduled Procedures Name Priority Associated Diagnoses Date/Ti [...] production) (HCC)- Primary Other disorders of neurohypophysis documented in this encounter Care Teams Pressure Tester Operator Relationship Specialty Start Date End Date Jerry Medrano III, MD [address] [place] [address] PCP - General Family Medicine 10/21/18 documented as of this encounter
--- OUTSIDE RECORDS SUMMARY | 2023-11-23 23:42 | External Medical Summary | Summary of Care ---
Author Name Unknown Organization [facility] Address [address] [place] [address] Phone [phone] Care Team Providers Care Electrician Assistant Name Role Phone Mitchell ROMAN MD, Jerry Cerda Primary Care Provider [phone] Reason for Visit * Reason Onset Date Comments Order Request 10/19/2023 Encounter Details Date Type Department Care Team (Late st Contact Info) Description 10/19/2023 Telephone Family Practice [facility] [address] [place] [address] Jerry Medrano III, MD [address] [place] [address] Order Request Allergies No known active allergiesdocumented as of this encounter (statuses as of 10/22/2023) Medications Medication Sig Dispensed Refills Start Date [...] as of this encounter (statuses as of 10/22/2023) Active Problems Problem Noted Date Diagnosed Date Hyponatremia 09/20/2023 SIADH (syndrome of inappropriate ADH production) 09/20/2023 Alcohol use 09/20/2023 Esophageal obstruction 09/15/2019 PAF (paroxysmal atrial fibrillation) 08/14/2019 Dyslipidemia 07/17/2018 Lumbar spinal stenosis 09/01/2013 ADVANCE DIRECTIVE INFORMATION 01/06/2005 Overview: No, Advance Directive brochure offered , patient declined. HTN, goal below 140/90 documented as of this encounter (statuses as of 10/22/2023) Resolved Problems Problem Noted Date Diagnosed Date [...] as of this encounter (statuses as of 10/22/2023) Immunizations Name Administration Dates Next Due COVID-19 [...] Telephone Encounter - Lianne Arriaga LPN - 10/22/2023 2:06 PM EST Patient's calling back, she stated that he is feeling much better and is no longer in need of any medication. No longer has the cough, congestion or runny nose. She stated that he hs moved into [facility] and he wants to continue doctoring with his PCP for as long as he can continue to. * Telephone Encounter - Kristan Hines LPN - 10/22/2023 12:26 PM EST Attempted to contact patient/EC. No answer, left message to return the call. Please request more details regarding patients symptoms, when they started, has he been tested for covid, etc. * Telephone Encounter - Jamie Rahman OSA - 10/19/2023 4:35 PM EST Pt spouse is calling to get some medication for pt he is congest coughh and a runny nose. If it could be please be sent to [facility] [phone] documented in this encounter Plan of Treatment Upcoming Encounters Date Type Department Care Team (Late st Contact Info) Description 12/06/2023 1:00 PM EDT Office Visit Family Practice [employer] [address] [facility] [place] [address] Jerry Medrano III, MD [address] [facility] [place] [address] 07/21/2024 2:00 PM EST Office Visit Nephrology, [facility] [address] [facility] [place] [address] Jamie Viera MD [address] [facility] [place] [address] Scheduled Procedures Name Priority Associated Diagnoses Date/Ti [...] filedocumented as of this encounter Care Teams Electrician Assistant Relationship Specialty Start Date End Date Mitchell Jerry ROMAN MD 200 [place] [address] PCP - General Family Medicine 10/21/18 documented as of this encounter
--- OUTSIDE RECORDS SUMMARY | 2023-11-23 23:42 | External Medical Summary ---
Author Name Unknown Address Unknown Organization K09:[place] [address] Laboratory Report Ordering Provider Test Date Status PAYTON YEH III 10/17/2023 14:02:40 Final Observation Date Value Abnormality Reference (Units ) Status BUN 10/17/2023 14:02:40 13 6-20 (mg/dL) Final Creatinine 10/17/2023 14:02:40 0.8 0.6-1.2 (mg/dL) Final Glomerular filtration rate/1.73 sq M.predicted [Volume Rate/Area] in Serum, Plasma or Blood by Creatinine-based formula (CKD-EPI) 10/17/2023 14:02:40 88 >=60 (mL/min) Final eGFR is calculated based on the CKD-EPI 2020 equation SODIUM 10/17/2023 14:02:40 137 135-146 (m mol/L) Final Potassium 10/17/2023 14:02:40 4.3 3.5-5.1 (m mol/L) Final Cl 10/17/2023 14:02:40 98 98-107 (mm ol/L) Final CO2 10/17/2023 14:02:40 27 22-32 (mmo l/L) Final Anion gap 10/17/2023 14:02:40 12 7-15 (mmol /L) Final Glucose 10/17/2023 14:02:40 101 70-120 (mg /dL) Final Calcium 10/17/2023 14:02:40 9.7 8.4-10.2 ( mg/dL) Final Albumin 10/17/2023 14:02:40 3.5 Below low normal 3.8 -5.0 (g/dL) Final Phosphate 10/17/2023 14:02:40 3.7 2.5-4.8 (m g/dL) Final Performing Location [place] [address]
--- OUTSIDE RECORDS SUMMARY | 2023-11-23 23:42 | External Medical Summary ---
Author Name Unknown Address Unknown Organization K0G:LABORATORY [facility] [address] - [address] [place] [address] Laboratory Report Ordering Provider Test Date Status ANAI LEAL 10/01/2023 05:40:00 Final Observation Date Value Abnormality Reference (Units ) Status BUN 10/01/2023 05:40:00 11 6-20 (mg/dL) Final Creatinine 10/01/2023 05:40:00 0.8 0.6-1.2 (mg/dL) Final Glomerular filtration rate/1.73 sq M.predicted [Volume Rate/Area] in Serum, Plasma or Blood by Creatinine-based formula (CKD-EPI) 10/01/2023 05:40:00 88 >=60 (mL/min) Final eGFR is calculated based on the CKD-EPI 2020 equation SODIUM 10/01/2023 05:40:00 137 135-146 (m mol/L) Final Potassium 10/01/2023 05:40:00 3.9 3.5-5.1 (m mol/L) Final Cl 10/01/2023 05:40:00 101 98-107 (mm ol/L) Final CO2 10/01/2023 05:40:00 26 22-32 (mmo l/L) Final Anion gap 10/01/2023 05:40:00 10 7-15 (mmol /L) Final Glucose 10/01/2023 05:40:00 84 70-120 (mg /dL) Final Calcium 10/01/2023 05:40:00 9.0 8.4-10.2 ( mg/dL) Final Performing Location LABORATORY [facility] [address] [place] [address]
--- OUTSIDE RECORDS SUMMARY | 2023-11-23 23:43 | External Medical Summary | Summary of Care ---
Author Name Unknown Organization [facility] Address [address] [place] [address] Phone [phone] Care Team Providers Care Envelope Folding Machine Adjuster Name Role Phone Mitchell ROMAN MD, Jerry Cerda Primary Care Provider [phone] Encounter Details Date Type Department Care Team (Late st Contact Info) Description 09/18/2023 Orders Only PATIENT PORTAL DO NOT DELETE THIS DEPT USED BY [place] [id number] Allergies No known active allergiesdocumented as of this encounter (statuses as of 09/18/2023) Medications Medication Sig Dispensed Refills Start Date [...] FOR PAIN.. 90 Tablet 0 05/24/2023 Active Furosemide 40 MG Oral Tablet (Lasix) Take 1 Tablet by mouth in the morning. 0 Active Magnesium Oxide 400 MG Oral Tablet [...] by mouth in the morning. 0 Active documented as of this encounter (statuses as of 09/18/2023) Active Problems Problem Noted Date Diagnosed Date [...] as of this encounter (statuses as of 09/18/2023) Resolved Problems Problem Noted Date Diagnosed Date [...] as of this encounter (statuses as of 09/18/2023) Immunizations Name Administration Dates Next Due COVID-19 mRNA, LNP-s, No Pre serve, 2-Dose Series ([employer]) 11/03/2020,10/13/2020 PPD 03/21/2023 Pneumococcal Conjugate Vacc, 13 [...] Nephrology, [facility] [address] [place] [address] Jamie Viera MD 200 [facility] [place] [address] 12/06/2023 1:00 PM EDT [facility] [address] [facility] [place] [address] Jerry Medrano III, MD 200 [facility] [place] [address] Scheduled Procedures Name Priority Associated Diagnoses Date/Ti me COLONOSCOPY FLEXIBLE PROXIMAL DIAGNOSTIC Recall History of colon polyps Health Maintenance Due Date Last Done Comments DTaP,Tdap,and Td Vaccines (2 - Td or Tdap) 10/11/2022 10/11/2012, 2007 Depression Screening 12/29/2022 12/29/2021 COVID-19 Vaccine ( season) 2023 11/03/2020, 10/13/2020 HbA1c 07/18/2024 07/18/2023, 06/04, 12/18/2019, Additional history exists GFR 09/17/2024 09/17/2023, 07/04, 06/27/2022, Additional history exists Albumin/Creatinine Ratio 07/03/2025 07/03/2022 [...] filedocumented as of this encounter Care Teams Envelope Folding Machine Adjuster Relationship Specialty Start Date End Date Routt ABEL, Jerry Cerda MD 200 [place] [address] PCP - General Family Medicine 10/21/18 documented as of this encounter
--- OUTSIDE RECORDS SUMMARY | 2023-11-23 23:43 | External Medical Summary | Summary of Care ---
Author Name Unknown Organization [facility] Address [address] [place] [address] Phone [phone] Care Team Providers Care Major Assembly Inspector Name Role Phone Mitchell ROMAN MD, Jerry Cerda Primary Care Provider [phone] Reason for Visit * Reason Onset Date Comments Hospital Follow-Up 09/14/2023 Encounter Details Date Type Department Care Team (Late st Contact Info) Description 09/14/2023 Telephone General Internal Medicine [facility] [address] [facility] [place] [address] Jerry Medrano III, MD [address] [place] [address] Hospital Follow-Up Allergies No known active allergiesdocumented as of this encounter (statuses as of 09/14/2023) Medications Medication Sig Dispensed Refills Start Date [...] as of this encounter (statuses as of 09/14/2023) Active Problems Problem Noted Date Diagnosed Date [...] as of this encounter (statuses as of 09/14/2023) Resolved Problems Problem Noted Date Diagnosed Date [...] as of this encounter (statuses as of 09/14/2023) Immunizations Name Administration Dates Next Due COVID-19 mRNA, LNP-s, No Pre serve, 2-Dose Series (Book[employer]Table) 11/03/2020,10/13/2020 PPD 03/21/2023 Pneumococcal Conjugate Vacc, 13 [...] Telephone Encounter - Yesi Lancaster RN - 09/14/2023 3:00 PM EST Fax sent to [facility] with lab orders and instructions to schedule hospital follow up visit. * Telephone Encounter - Yesi Lancaster RN - 09/14/2023 2:[address] Viera is requesting 2 week follow up. I will contact them to order labs. * Telephone Encounter - Andres Pak RN - 09/14/2023 2:44 PM EST Patient discharged to [facility] 09/14/23. Nephrology consulted, no discharge recommendation for follow up. Please determine if this patient will need a follow up appointment. Thank you documented in this encounter Plan of Treatment Upcoming Encounters Date Type Department Care Team (Late st Contact Info) Description 12/06/2023 1:00 PM EDT Office Visit Family [facility] Atkins [address], [place] [address] Jerry Medrano III, MD [address] [place] [address] Scheduled Orders Name Type Priority Associated Diagnoses Orde r Schedule RENAL FUNCTION PANEL Lab Routine HTN, goal below 140/90 Expected: 09/17/2023 (Approximate), Expires: 09/14/2024 Scheduled Procedures Name Priority Associated Diagnoses Date/Ti me COLONOSCOPY FLEXIBLE PROXIMAL DIAGNOSTIC Recall History of colon polyps Health Maintenance Due Date Last Done Comments DTaP,Tdap,and Td Vaccines (2 - Td or Tdap) 10/11/2022 10/11/2012, 2007 Depression Screening 12/29/2022 12/29/2021 COVID-19 Vaccine (3 - 2022- season) 2023 11/03/2020, 10/13/2020 GFR 07/18/2024 07/18/2023, [...] goal below 140/90- Primary Unspecified essential hypertension documented in this encounter Care Teams Major Assembly Inspector Relationship Specialty Start Date End Date Jerry Medrano III, MD [address] [place], [place] [address] PCP - General Family Medicine 10/21/18 documented as of this encounter
--- OUTSIDE RECORDS SUMMARY | 2023-11-23 23:43 | External Medical Summary ---
Author Name Unknown Address Unknown Organization [id number]:[facility] [[email or web address]] [address] [place] [address] Laboratory Report Ordering Provider Test Date Status ANAI LEAL 09/17/2023 05:23:00 Final Observation Date Value Abnormality Reference (Units ) Status BUN 09/17/2023 05:23:00 37 Above high normal 6-20 (mg/dL) Final Creatinine 09/17/2023 05:23:00 0.9 0.6-1.2 (mg/dL) Final Glomerular filtration rate/1.73 sq M.predicted [Volume Rate/Area] in Serum, Plasma or Blood by Creatinine-based formula (CKD-EPI) 09/17/2023 05:23:00 85 >=60 (mL/min) Final eGFR is calculated based on the CKD-EPI 2020 equation SODIUM 09/17/2023 05:23:00 128 Below low normal 135 -146 (mmol/L) Final Potassium 09/17/2023 05:23:00 4.6 3.5-5.1 (m mol/L) Final Cl 09/17/2023 05:23:00 91 Below low normal 98- 107 (mmol/L) Final CO2 09/17/2023 05:23:00 24 22-32 (mmo l/L) Final Anion gap 09/17/2023 05:23:00 13 7-15 (mmol /L) Final Glucose 09/17/2023 05:23:00 100 70-120 (mg /dL) Final Calcium 09/17/2023 05:23:00 10.0 8.4-10.2 ( mg/dL) Final Performing Location [facility] [[email or web address]] [employer] [address] [place] [address]
--- OUTSIDE RECORDS SUMMARY | 2023-11-23 23:43 | External Medical Summary ---
Author Name Unknown Address Unknown Organization K01:[facility] - [address] [place] [address] Laboratory Report Ordering Provider Test Date Status ANAI LEAL 09/17/2023 05:23:00 Final Observation Date Value Abnormality Reference (Units ) Status Magnesium 09/17/2023 05:23:00 2.4 1.5-2.6 (m g/dL) Final Performing Location [facility] - [address] [place] [address]
--- OUTSIDE RECORDS SUMMARY | 2023-11-23 23:43 | External Medical Summary | Summary of Care ---
Author Name Unknown Organization [facility] Address [address] [place] [address] Phone [phone] Care Team Providers Care Superannuation Funds Manager Name Role Phone Mitchell ROMAN MD, Jerry Cerda Primary Care Provider [phone] Reason for Visit * Reason Onset Date Comments Skilled Visit 09/17/2023 Encounter Details Date Type Department Care Team (Late st Contact Info) Description 09/17/2023 10:00 AM EST Care Home Visit [facility], [address] [place] [address] Odalys Roy PA-C [address] [place] [address] Generalized weakness*; COVID-19 virus infection; Hyponatremia; HTN, goal below 140/90; Impaired fasting glucose; Spinal stenosis of lumbar region without neurogenic claudication; Frequent falls; Dry skin dermatitis; Slow transit constipation Allergies No known active allergiesdocumented as of this encounter (statuses as of 09/17/2023) Medications Medication Sig Dispensed Refills Start Date [...] EVERY DAY 90 Tablet 2 3 Active Gabapentin 100 MG Oral Capsule (Neurontin) Take 1 Capsule by mouth in the morning and 1 Capsule at noon and 1 Capsule before bedtime. 90 Capsule 5 3 Active Additional Information Patient taking differently: (No dose reported), Oral,(No frequency reported), Takes twice daily - 100 mg in AM and 200 mg at bedtime, Reported on 09/17/2023 Atorvastatin Calcium 40 MG Oral Tablet (Lipitor)Indication s:Dyslipidemia, goal to be determined TAKE 1 TABLET BY MOUTH EVERY DAY 90 Tablet 1 3 Active [facility] Vitamin B-12 1000 MCG Oral Tablet (vitamin b 12) TAKE 1 TABLET BY MOUTH EVERY DAY 100 Tablet 3 3 Active Meloxicam 7.5 MG Oral Tablet (Mobic)Indications: Primary osteoarthritis of both hands TAKE 1 TABLET BY MOUTH IN THE MORNING. FOR PAIN.. 90 Tablet 0 3 Active Furosemide 40 MG Oral Tablet (Lasix) [...] by mouth in the morning. 0 Active Lisinopril 40 MG Oral Tablet Take 1 Tablet by mouth in the morning. 90 Tablet 3 3 09/17/19 24 Discontinued Indapamide 2.5 MG Oral Tablet (Lozol) TAKE 1 TABLET BY MOUTH EVERY DAY 90 Tablet 2 3 09/17/19 24 Discontinued Metoprolol Succinate ER 200 MG Oral Tablet Extended Release 24 HourIndications:HTN , goal below 140/90 TAKE 1 TABLET BY MOUTH EVERY DAY 90 Tablet 3 3 09/17/19 24 Discontinued amLODIPine Besylate 10 MG Oral Tablet (Norvasc) TAKE 1 TABLET BY MOUTH EVERY DAY 90 Tablet 2 3 09/17/19 24 Discontinued documented as of this encounter (statuses as of 09/17/2023) Active Problems Problem Noted Date Diagnosed Date [...] as of this encounter (statuses as of 09/17/2023) Resolved Problems Problem Noted Date Diagnosed Date [...] as of this encounter (statuses as of 09/17/2023) Immunizations Name Administration Dates Next Due COVID-19 [...] Sign Reading Time Taken Comments Blood Pressure 130/54 09/17/2023 4:17 PM EST Pulse 81 09/17/2023 4:17 PM EST Temperature 36.5 C (97.7 F) 09/17/2023 4:17 PM ES T Respiratory Rate 18 09/17/2023 4:17 PM EST Oxygen Saturation 96% 09/17/2023 4:17 PM EST room air Inhaled Oxygen Concentration - - Weight 91.1 kg (200 lb 12.8 oz) 09/17/2023 4:17 PM EST Height - - Body Mass Index 28.81 07/18/2023 4:20 PM EST documented in this encounter Progress Notes * Odalys Roy PA-C - 09/17/2023 10:00 AM EST ON-SERVICE NOTE TRANSITION EVENT: Type: SNF admission Date: September 14 Code Status: No Code Name: Severino Green Date of : 1940 This note pertains to care provided at [facility]. Please see facility medical record for original note. This note is not to be edited or addended in [employer]. Editing or addending needs to occur in the facilities medical record. S: Severino Green had been admitted to [facility] from [facility] for convalesence, PT, and OT. Recently admitted to [facility] because of acute illness and was transferred here and admitted on 09/14/2023. Patient of Jerry Medrano III, MD with history of HTN, obesity, dyslipidemia, , chronic low back painwith lumbar spinal stenosis, pre-DM, prior GI bleed, alcohol use (per hospital reports 6-7 beers per day), and other history as noted below, presented to the ER on 08/30/23 with progressive weakness and some falls. He was hyponatremic with sodium of 133, troponin was slightly elevated, CXR negativefor acute process, and COVID-19 testing was positive. He was admitted for ongoing care. COVID-19 was managed with flutter valve, incentive spirometry, mucinex. He completed ten days of isolation during his hospital stay. Hyponatremia was managed with fluid restriction, indapamide was held, sodium dropped as low as 126.Blood pressures were low and most of his antihypertensive medications were held. He was seen by nephrology for assistance in managing hyponatremia. He was ultimately discharged on lasix 40 mg daily and metoprolol succinate 50 mg twice daily, his amlodipine, indapamide, and lisinopril were discontinued. Nephrology follow up was recommended. He has now transferred to this facility for rehab. At baseline, he walks minimally, stands/pivot transfers to a scooter at home, he lives with who is currently unable to manage his care due to recent illness and his increased care needs. He admits to consuming 1 or 2 beers per day, denies tobacco or drug use. He is considering discharge to personal care facility if he is unable to return home. Thus far, he has been non-compliant with fluid restriction, he feels 1500 ml is not enough for him "to survive" and he is very uncomfortable with being unable to freely take liquid. He admits to a very mild cough, denies dyspnea, chest pain, fever, chills. He admits to back pain (chronic), constipation, denies nausea, vomiting, diarrhea. C/o itchy, dry skin on legs. Past Medical History: Patient Active Problem List Diagnosis Code HTN, goal below 140/90 I10 ADVANCE DIRECTIVE INFORMATION Lumbar spinal stenosis M48.061 Dyslipidemia E78.5 PAF (paroxysmal atrial fibrillation) ([facility]) I48.0 Esophageal obstruction K22.2 Obesity, morbid (more than 100 lbs over ideal weight or BMI > 40) ([facility]) E66.01 Prediabetes R73.03 Current Outpatient [...] THE MORNING. FOR PAIN.. 90 Tablet 0 Furosemide 40 MG Oral Tablet (Lasix) Take 1 Tablet by mouth in the morning. Magnesium Oxide 400 MG Oral Tablet Take [...] adenomatous polyps, diverticulosis, repeat 6 mo / [facility] COLONOSCOPY, DIAGNOSTIC (RECTUM) 07/22/2019 hyperplastic polyp, fair prep, repeat 3 yrs/COLONOSCOPY FLEXIBLE PROXIMAL DIAGNOSTIC performed by Kun Tapia DO at ENDOSCOPY [facility] EGD, FLEXIBLE, DIAGNOSTIC 10/09/2018 gastritis, Schatzki ring / [facility] REMOVAL OF APPENDIX REMOVE TONSILS & ADENOIDS, UNDER 12 Family History Problem Relation Age of Onset Lung Disorder Brother copd Heart Disorder Mother chf, pvd @93 Lung Disorder Father silicosis tb @72 Family Status Relation Status Bro (Not Specified) Mo (Not Specified) Fa (Not Specified) Review of Systems: Per HPI ADL skills: dependent Ambulation: non ambulating at baseline OBJECTIVE: BP 130/54 | Pulse 81 | Temp 36.5 C (97.7 F) | Resp 18 | Wt 91.1 kg (200 lb 12.8 oz) | SpO2 96% Comment: room air | BMI 28.81 kg/m | BSA 2.12 m General: alert and no distress, lying in bed, generalized weakness is noted Head: Normocephalic Eye Exam: conjunctiva are pink and non-injected, sclera clear Oropharynx: lips, buccal mucosa, and tongue normal and mucous membranes are moist Heart: regular rate & rhythm Lungs: chest symmetric with normal AP diameter, no chest deformities noted, no chest wall tenderness, lungs clear to auscultation Abdomen: abdomen soft, non-tender, normal bowel sounds, and with midline abdominal hernia noted, non tender Extremities: no lower leg edema, arthritic changes in the hands Neuro Exam: alert & oriented x 3 with fluent speech, though he asked me for my name several times Skin: dry skin bilateral legs, no rash noted here Results for orders placed or performed in visit on 09/17/23 BASIC METABOLIC PANEL Result Value Ref Range BUN 37 (H) 6 - 20 mg/dL Creatinine 0.9 0.6 - 1.2 mg/dL Estimated Glomerular Filtration Rate 85 >=60 mL/min Sodium 128 (L) 135 - 146 mmol/L Potassium 4.6 3.5 - 5.1 mmol/L Chloride 91 (L) 98 - 107 mmol/L CO2 24 22 - 32 mmol/L Anion Gap 13 7 - 15 mmol/L Glucose 100 70 - 120 mg/dL Calcium 10.0 8.4 - 10.2 mg/dL CBC Result Value Ref Range WBC 11.49 [...] K/uL MPV 11.7 6.6 - 11.1 fL MAGNESIUM Result Value Ref Range Magnesium 2.4 1.5 - 2.6 mg/dL PHOSPHORUS Result Value Ref Range Phosphorus 2.8 2.5 - 4.8 mg/dL Results reviewed with patient at visit ASSESSMENT: Generalized weakness (Primary) PT and OT COVID-19 virus infection Resolved - no current symptoms Isolation complete Hyponatremia Sodium still low He has been non-compliant with fluid restriction, we did discuss importance of adhering to this, especially with sodium level dropping (1500 ml/day) Will increase lasix to 40 mg twice daily and repeat BMP in 2 days Follow up with nephrology in 1-2 weeks Monitor daily weights for now HTN, goal below 140/90 Multiple recent medication changes Monitor pressures Impaired fasting glucose Continue home metformin Spinal stenosis of lumbar region without neurogenic claudication Aspercreme to back 3x daily for pain Continue mobic 7.5 mg daily Frequent falls PT and OT Dry skin dermatitis Eucerin to legs for dry skin Slow transit constipation Begin colace 100 mg twice daily Patient requests DNR per our discussion today PLAN: 1. Continue present medication(s): with changes listed above 2. Admission orders, medications, labs, hospital records and care plan reviewed. 3. Continue current treatment plan as , Physical Therapy, Occupational Therapy, and nephrology follow up ordered. 4. Care plan reviewed. 5. Advance Directives were discussed: The patient is a DNR I spent a total of 81 minutes coordinating, documenting, and providing care for this patient excluding time spent in the performance of separately billed services or time spent by another provider/QHP. documented in this encounter Plan of Treatment Upcoming Encounters Date Type Department Care Team (Late st Contact Info) Description 10/17/2023 1:00 PM EST Office Visit Nephrology, [address] [place] [address] Jamie Viera MD [address] [facility] [place] [address] 12/06/2023 1:00 PM EDT Office Visit Family Practice [facility] [address] [facility] [place] [address] [place]Jerry hoover III, MD 200 [facility] [place] [address] Scheduled Procedures Name Priority Associated Diagnoses Date/Ti [...] Generalized weakness- Primary Other malaise and fatigue COVID-19 virus infection Hyponatremia Hyposmolality and/or hyponatremia HTN, goal below 140/90 Unspecified essential hypertension Impaired fasting glucose Spinal stenosis of lumbar region without neurogenic claudication Spinal stenosis, lumbar region, without neurogenic claudication Frequent falls Personal history of fall Dry skin dermatitis Contact dermatitis and other eczema due to other specified agent Slow transit constipation documented in this encounter Care Teams Superannuation Funds Manager Relationship Specialty Start Date End Date Jerry Medrano III, MD [address] [place] [address] PCP - General Family Medicine 10/21/18 documented as of this encounter
--- OUTSIDE RECORDS SUMMARY | 2023-11-23 23:43 | External Medical Summary | Summary of Care ---
Author Name Unknown Organization [facility] Address [address] [place] [address] Phone [phone] Care Team Providers Care Material Attendant Name Role Phone Mitchell ROMAN MD, Jerry Cerda Primary Care Provider [phone] Encounter Details Date Type Department Care Team (Late st Contact Info) Description 09/19/2023 Orders Only Lab Mobile Phlebotomy [facility] [address], [place] [id number] Odalys Roy PA-C [address] [place] [address] Hyponatremia* Allergies No known active allergiesdocumented as of this encounter (statuses as of 09/19/2023) Medications Medication Sig Dispensed Refills Start Date [...] as of this encounter (statuses as of 09/19/2023) Active Problems Problem Noted Date Diagnosed Date [...] as of this encounter (statuses as of 09/19/2023) Resolved Problems Problem Noted Date Diagnosed Date [...] as of this encounter (statuses as of 09/19/2023) Immunizations Name Administration Dates Next Due COVID-19 mRNA, LNP-s, No Pre serve, 2-Dose Series ([employer]) 11/03/2020,10/13/2020 PPD 03/21/2023 Pneumococcal Conjugate Vacc, 13 [...] 10/17/2023 1:00 PM EST Office Visit Nephrology, [facility] [address] [place] [address] Jamie Viera MD 200 [facility] [place] [address] 12/06/2023 1:00 PM EDT [facility] [place] [address] [place] [address] [address] Jerry Medrano III, MD [address] [facility] [place] [address] Scheduled Orders Name Type Priority Associated Diagnoses Orde r Schedule BASIC METABOLIC PANEL Lab Routine Hyponatremia Expected: 09/19/2023, Expires: 09/19/2024 Scheduled Procedures Name Priority Associated Diagnoses Date/Ti [...] hyponatremia documented in this encounter Care Teams Material Attendant Relationship Specialty Start Date End Date Jerry Medrano III, MD [address] [facility] [place] [address] PCP - General Family Medicine 10/21/18 documented as of this encounter
--- OUTSIDE RECORDS SUMMARY | 2023-11-23 23:43 | External Medical Summary ---
Author Name Unknown Address Unknown Organization K01:[facility] - [address] [place] [address] Laboratory Report Ordering Provider Test Date Status ANAI LEAL 09/17/2023 05:23:00 Final Observation Date Value Abnormality Reference (Units ) Status Phosphate 09/17/2023 05:23:00 2.8 2.5-4.8 (m g/dL) Final Performing Location [facility] - [address] [place] [address]
--- OUTSIDE RECORDS SUMMARY | 2023-11-23 23:43 | External Medical Summary ---
Author Name Unknown Address Unknown Organization K0G:[facility] [address] - [address] [place] [address] Laboratory Report Ordering Provider Test Date Status ANAI LEAL 09/19/2023 05:45:00 Final Observation Date Value Abnormality Reference (Units ) Status BUN 09/19/2023 05:45:00 25 Above high normal 6-20 (mg/dL) Final Creatinine 09/19/2023 05:45:00 0.9 0.6-1.2 (mg/dL) Final Glomerular filtration rate/1.73 sq M.predicted [Volume Rate/Area] in Serum, Plasma or Blood by Creatinine-based formula (CKD-EPI) 09/19/2023 05:45:00 85 >=60 (mL/min) Final eGFR is calculated based on the CKD-EPI 2020 equation SODIUM 09/19/2023 05:45:00 130 Below low normal 135 -146 (mmol/L) Final Potassium 09/19/2023 05:45:00 4.5 3.5-5.1 (m mol/L) Final Cl 09/19/2023 05:45:00 93 Below low normal 98- 107 (mmol/L) Final CO2 09/19/2023 05:45:00 28 22-32 (mmo l/L) Final Anion gap 09/19/2023 05:45:00 9 7-15 (mmol /L) Final Glucose 09/19/2023 05:45:00 101 70-120 (mg /dL) Final Calcium 09/19/2023 05:45:00 9.6 8.4-10.2 ( mg/dL) Final Performing Location [facility] [address] [place] [address]
[2023-11-24] MEDS: ACETAMINOPHEN 1,000 MG/100 ML VIAL IV PRN (00:07)
[2023-11-24] MEDS: MoRPHine SULFATE 2 MG/ML CARP IV PRN (02:10)
[2023-11-24 06:49] LABS: Basophils # (auto) 0.03 K/uL (0.00-0.20); Basophils % (auto) 0.2 %; Eosinophils # (auto) 0.01 K/uL (0.00-0.50); Eosinophils % (auto) 0.1 %; Hematocrit (blood only) 36.2 % (42.0-52.0); Hemoglobin 12.4 g/dl (14.0-18.0); Immature Granulocytes # (auto) 0.04 K/uL (0.01-0.20); Immature Granulocytes % (auto) 0.3 %; Lymphocytes # (auto) 1.33 K/uL (1.20-3.40); Lymphocytes % (auto) 9.9 %; Mean Corpuscular Hemoglobin 32.1 pg (25.0-34.0); Mean Corpuscular Hgb Conc 34.3 g/dL (32.0-36.0); Mean Corpuscular Volume 93.8 fL (80.0-100.0); Mean Platelet Volume 10.8 fL (9.4-12.4); Monocytes # (auto) 0.88 K/uL (0.11-0.59); Monocytes % (auto) 6.5 %; Neutrophils # (auto) 11.17 K/uL (1.40-6.50); Platelet Count 244 K/uL (130-400); Red Blood Count 3.86 M/uL (4.70-6.10); White Blood Count 13.46 K/ul (4.8-10.8)
[2023-11-24 07:06] LABS: Albumin Globulin Ratio 0.9 (0.9-2); Albumin Level 2.9 gm/dl (3.4-5.0); BUN Creatinine Ratio 18.4 (10-20); Calcium 8.9 mg/dl (8.6-10.3); Creatinine Clr Calc Pharmacy 83.5 ml/min; Est GFR (African American) 97.1 ml/min; Est GFR (Non-African American) 83.8 ml/min; Globulin 3.2 gm/dl (2.5-4.0); Potassium 4.4 mmol/L (3.5-5.1); Total Protein 6.1 gm/dl (6.0-8.3)
--- NOTE | 2023-11-24 07:59 | Hospitalist Progress Note ---
Date of Service November 24, 2023 Assessment & Plan (1) SBO (small bowel obstruction): (2) Incarcerated ventral hernia: (3) Acute hypokalemia: (4) Abnormal computed tomography of abdomen and pelvis: (5) HTN (hypertension): (6) Dyslipidemia: (7) Prediabetes: (8) PAF (paroxysmal atrial fibrillation): (9) Leg edema: (10) Hyponatremia: (11) History of SIADH: Plan Patient is an 82 year old male with PMHx significant for HTN, dyslipidemia, paroxysmal atrial fibrillation not on anticoagulation, prediabetes, history of SIADH, former alcohol use presenting with complaint of abdominal pain x 1 day. SBO (small bowel obstruction) Incarcerated ventral hernia In ER T: 36.6 C, P: 89, R: 18, BP 133/59, 97% on room air WBC elevated at 14K Blood Cx x [address] abd/pelvis concerning for SBO with incarcerated hernia General Surgery consulted, appreciate recs -s/p bowel resection and hernia repair on 11/22 with bowel resection of Meckel's diverticulum and ischemic portion of bowel -Activity of OOB with assistance into chair post/op Day 1. Nursing with difficulty getting pt up and into the chair. Pain Control, antiemetics Advance diet per surgery recs Continue to monitor postop on telemetry Acute Blood loss anemia Hgb dropped from 14.4 to 12.4 post op Continue to monitor with Am hgb Electrolyte Abnormalities Hypokalemia- K of 3.3 on admission, replete as needed Hyponatremia-Hx of SIADH. Sodium of 135 on admission. currently wnl. Continue to monitor Hyperglycemia Prediabetes Glucose levels elevated A1c: 5.3 on 08/31/2023 Hold home metformin NovoLog sliding scale correction only for now AM hgb a1c pending Elevated liver enzymes T bili and alk phos levels elevated on admission Currently wnl Continue to monitor with AM labs Ketonuria Dehydration UA with noted ketones Suggestive of dehydration, likely in acute SBO/incarcerated hernia noted above On NSS, reduced to 80 due to concern for susceptibility to fluid overload. Cr wnl Continue to trend Cr with AM labs Cardiomegaly Known Hx for pt Cardiomegaly noted on abd/pelvis CT Hs-troponin wnl EKG noting sinus rhythm with frequent atrial ectopy. Echo ordered and pending Prostatomegaly Chronic bladder outlet obstruction Possible underlying mucosal lesion CT abd/pelvis noting "Marked prostatomegaly with evidence of chronic bladder outlet obstruction. There is asymmetric bladder wall thickening seen anteriorly on the left. Although this may be related to chronic outlet obstruction, an underlying mucosal lesion is not excluded. Follow up with urology is recommended for further assessment." UA unremarkable Urology follow up outpatient HTN Currently wnl Converted home metoprolol succinate to IV metoprolol tartrate while n.p.o. Holding Lasix Continue to monitor, resume home meds as soon as able Dyslipidemia Would plan to resume atorvastatin when able to have oral intake PAF (paroxysmal atrial fibrillation) Not on anticoagulation Convert home metoprolol succinate to IV metoprolol tartrate while n.p.o. Monitor on telemetry Leg edema History of chronic BLE edema On Lasix Currently appears euvolemic Hold Lasix and resume as able Diet: currently NPO per Gen Surg DVT Prophylaxis: SCDs and Lovenox per Surgery Full Code as per discussion with patient Dispo: PT/OT for recs as soon as able Admission and Anticipated Discharge Date Admission Date: November 23, 2023 Subjective Pt was seen in the AM. States that pain was controlled, really only feels it with pressure to the area . Review of Systems Review of Systems: All systems reviewed & are unremarkable except as noted in Subjective Physical Exam Physical Exam: General: Alert, oriented. No acute distress Skin: No noted rashes or bruises Psych: Appropriate mood and affect Neuro: No gross deficits HEENT: NC/AT Chest: Nontender to palpation. CV: RRR, + murmur Resp: Breath sounds clear bilaterally, no increased effort of breathing. Abdomen: Soft, tender, bandage in place Extremities: edema in lower extremities bilaterally. Results & Data Results & Data Vital Signs (Past 12 Hours) Vital Signs Temp Pulse Pulse Resp BP BP Pulse Ox 11/24/23 07:51 36.8 C 78 18 114/71 97 11/24/23 05:59 81 99/65 L 11/24/23 03:50 37.1 C 83 16 101/65 92 11/24/23 00:42 106/67 11/24/23 00:40 86 106/67 11/24/23 00:01 91 H 124/76 11/23/23 23:25 37.9 C H 88 16 124/76 96 11/23/23 21:57 37.4 C 87 18 124/81 97 11/23/23 20:56 37.4 C 87 18 124/81 97 11/23/23 20:45 87 110/71 11/23/23 20:17 90 113/80 O2 Del Method O2 Flow Rate 11/24/23 07:51 Nasal Cannula 2 11/24/23 05:59 11/24/23 03:50 Nasal Cannula 3.0 11/24/23 00:42 11/24/23 00:40 11/24/23 00:01 11/23/23 23:25 Nasal Cannula 3.0 11/23/23 21:57 Nasal Cannula 3.0 11/23/23 20:56 Nasal Cannula 3.0 11/23/23 20:45 11/23/23 20:17 Diagnostic Findings Abdomen/Pelvis CT 11/23/23 11:23 CT SCAN OF THE ABDOMEN AND PELVIS WITH IV CONTRAST CLINICAL HISTORY: Vomiting. COMPARISON STUDY: No priors. TECHNIQUE: Following the IV administration of 93 cc of Optiray 320, CT scan of the abdomen and pelvis is performed from the lung bases to the proximal femora. Images are reviewed in the axial, sagittal, and coronal planes. IV contrast was administered without complication. A dose lowering technique was utilized adhering to the principles of ALARA. CT DOSE: 1337.02 mGy.cm FINDINGS: Lung bases: The heart is mildly enlarged and without pericardial effusion. The coronary arteries and aortic valve leaflets are densely calcified. The lung bases are clear noting bibasilar scarring/atelectasis. There is a small hiatal hernia. Liver: The contrast-enhanced liver is normal in size, contour, and attenuation. There is no intrahepatic biliary ductal dilatation. The hepatic veins and portal veins are patent. Gallbladder: Unremarkable. Spleen: Normal in size and attenuation. A 14 mm splenic hypodensity seen on image #87 is indeterminate and statistically of doubtful significance. 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 Pancreas: Moderately atrophic and grossly unremarkable. 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 The left adrenal gland is normal in appearance. Kidneys: The contrast enhanced kidneys demonstrate cortical atrophy and are without hydronephrosis. The kidneys enhance symmetrically. Scattered subcentimeter cortical hypodensities likely represent cysts but are too small for definitive characterization. Abdominal vasculature: The abdominal aorta is normal in course and caliber noting advanced atherosclerotic calcification. Bowel: There are small bowel loops contained within a large fat-containing subumbilical hernia. The small bowel loops above the hernia are distended and fluid-filled, measuring up to 4 cm diameter. The small bowel exiting exiting the hernia the distal small bowel is decompressed. This is consistent with a site of small bowel obstruction, and the transition point is seen on axial image #212. There is no pneumatosis intestinalis or portal venous gas. No focally thick- walled bowel loops are identified. There is advanced colonic diverticulosis without CT evidence of acute diverticulitis. The appendix is not identified and reported surgically absent. Peritoneum: There is a small volume of pelvic ascites. No intraperitoneal free air is identified. There is a large complex fat-containing supraumbilical hernia which contains bowel and trace fluid. This is seen on axial image #207. There is also a fat-containing umbilical hernia. There is an indeterminant low- attenuation structure anterior to the right kidney seen on image #140. This measures 2.6 x 1.8 cm, measures water density, and may represent a lymphangioma. Lymphadenopathy: None. Pelvic viscera: The prostate gland is markedly enlarged and heterogeneous. The bladder wall is thickened/trabeculated indicating chronic outlet obstruction. Bladder wall thickening is asymmetrically greatest anteriorly on the left. This is best seen on image #297 and measures up to 1.0 cm in thickness. There are bilateral fat containing inguinal hernias, left larger than right. The left groin hernia contains trace fluid. Skeletal structures: The skeletal structures are osteopenic. There is advanced lumbosacral spondylosis. No lytic or blastic lesions are seen. IMPRESSION: 1. Small bowel obstruction secondary to incarcerated small bowel loops within a large complex subumbilical hernia. 2. No thick-walled bowel loops are identified. There is no pneumatosis intestinalis, portal venous gas, or intraperitoneal free air. 3. Advanced colonic diverticulosis without CT evidence of acute diverticulitis. 4. Marked prostatomegaly with evidence of chronic bladder outlet obstruction. There is asymmetric bladder wall thickening seen anteriorly on the left. Although this may be related to chronic outlet obstruction, an underlying mucosal lesion is not excluded. Follow up with urology is recommended for further assessment. 5. Large bilateral inguinal hernias. 6. Mild cardiomegaly. 7. Additional findings as above. ACT 112: Positive. There are findings on this exam that require communication between the performing entity and the patient following Patient Test Result Information Act ([place] Act 112) guidelines. Electronically signed by: Dar Torres M.D. 11/23/2023 12:08 PM (5) HTN (hypertension) Hypertension type: essential hypertension Qualified Code(s): I10 - Essential (primary) hypertension
[2023-11-24] MEDS: ENOXAPARIN INJ 40 MG/0.4 ML SYR SQ SCH (08:00)
--- NOTE | 2023-11-24 13:43 | Surgery Progress Note ---
Date of Service November 24, 2023 Assessment & Plan (1) SBO (small bowel obstruction): (2) Incarcerated hernia: Plan POD#1 s/p exploratory laparotomy, small bowel resection, hernia repair Doing well Continue IV pain control Awaiting bowel function, continue n.p.o. Encourage out of bed to chair with nursing assist DVT prophylaxis with SCD boots and Lovenox Aggressive pulmonary toilet with incentive spirometry Admission and Anticipated Discharge Date Admission Date: November 23, 2023 Subjective doing fairly well today. Some pain controlled with IV pain medication. No flatus. No nausea or vomiting. Physical Exam Physical Exam: AFVSS NAD, A&O x 3 Abdomen: Soft, mild TTP Incision dressing C/D/I Binder in place Results & Data Vital Signs (Past 12 Hours) Vital Signs Temp Pulse Pulse Resp BP BP Pulse Ox 11/24/23 12:20 80 135/60 11/24/23 12:16 75 11/24/23 11:22 36.3 C L 80 18 137/72 94 11/24/23 07:51 36.8 C 78 18 114/71 97 11/24/23 07:50 11/24/23 05:59 81 99/65 L 11/24/23 03:50 37.1 C 83 16 101/65 92 O2 Del Method O2 Flow Rate 11/24/23 12:20 11/24/23 12:16 11/24/23 11:22 Nasal Cannula 2 11/24/23 07:51 Nasal Cannula 2 11/24/23 07:50 Room Air 11/24/23 05:59 11/24/23 03:50 Nasal Cannula 3.0 Laboratory Results 11/24/23 11/24/23 11/24/23 Range/Units 12:05 06:35 05:42 WBC 13.46 H (4.8-10.8) K/ul RBC 3.86 L (4.70-6.10) M/uL Hgb 12.4 L (14.0-18.0) g/dl Hct 36.2 L (42.0-52.0) % MCV 93.8 (80.0-100.0) fL MCH 32.1 (25.0-34.0) pg MCHC 34.3 (32.0-36.0) g/dL RDW Std Deviation 48.0 H (36.4-46.3) fL RDW Coeff of Steven 14.0 (11.5-14.5) % Plt Count 244 (130-400) K/uL MPV 10.8 (9.4-12.4) fL Immature Gran % (Auto) 0.3 % Neut % (Auto) 83.0 % Lymph % (Auto) 9.9 % [place] % (Auto) 6.5 % Eos % (Auto) 0.1 % Baso % (Auto) 0.2 % Neut # (Auto) 11.17 H (1.40-6.50) K/uL Lymph # (Auto) 1.33 (1.20-3.40) K/uL [place] # (Auto) 0.88 H (0.11-0.59) K/uL Eos # (Auto) 0.01 (0.00-0.50) K/uL Baso # (Auto) 0.03 (0.00-0.20) K/uL Immature Gran # (Auto) 0.04 (0.01-0.20) K/uL Sodium 136 (136-145) mmol/L Potassium 4.4 D (3.5-5.1) mmol/L Chloride 101 (98-107) mmol/L Carbon Dioxide 29 (21-32) mmol/L Anion Gap 6 (3-11) BUN 14 (6-23) mg/dl Creatinine 0.76 (0.6-1.4) mg/dl Est Cr Clr Drug Dosing 83.5 ml/min Est GFR ( Amer) 97.1 ml/min Est GFR (Non-Af Amer) 83.8 ml/min BUN/Creatinine Ratio 18.4 (10-20) Glucose 119 H (70-99(Fasting)) mg/dl POC Glucose 105 H 121 H (70-99) mg/dl Calcium 8.9 (8.6-10.3) mg/dl Magnesium (1.7-2.4) mg/dl Total Bilirubin 1.0 (0.2-1.0) mg/dl AST 11 L (13-39) U/L ALT 8 (7-52) U/L Alkaline Phosphatase 95 (34-104) U/L Total Protein 6.1 (6.0-8.3) gm/dl Albumin 2.9 L (3.4-5.0) gm/dl Globulin 3.2 (2.5-4.0) gm/dl Albumin/Globulin Ratio 0.9 (0.9-2) Urine Color Urine Appearance (Clear) Urine pH (4.5-7.5) Ur Specific [place] (1.000-1.030) Urine Protein (Negative) Urine Glucose (UA) (Negative) Urine Ketones (Negative) Urine Blood (Negative) Urine Nitrite (Negative) Urine Bilirubin (Negative) Urine Urobilinogen (Negative) Ur Leukocyte Esterase (Negative) Urine WBC (Auto) (0-5) /hpf Urine RBC (Auto) (0-4) /hpf U Hyaline Cast (Auto) (0-5) /lpf U Epithel Cells (Auto) (0-5) /lpf Urine Bacteria (Auto) (Negative) Nasal Screen MRSA (PCR) (Negative) 11/23/23 11/23/23 11/23/23 Range/Units Unknown 23:30 18:15 WBC (4.8-10.8) K/ul RBC (4.70-6.10) M/uL Hgb (14.0-18.0) g/dl Hct (42.0-52.0) % MCV (80.0-100.0) fL MCH (25.0-34.0) pg MCHC (32.0-36.0) g/dL RDW Std Deviation (36.4-46.3) fL RDW Coeff of Steven (11.5-14.5) % Plt Count (130-400) K/uL MPV (9.4-12.4) fL Immature Gran % (Auto) % Neut % (Auto) % Lymph % (Auto) % [place] % (Auto) % Eos % (Auto) % Baso % (Auto) % Neut # (Auto) (1.40-6.50) K/uL Lymph # (Auto) (1.20-3.40) K/uL [place] # (Auto) (0.11-0.59) K/uL Eos # (Auto) (0.00-0.50) K/uL Baso # (Auto) (0.00-0.20) K/uL Immature Gran # (Auto) (0.01-0.20) K/uL Sodium (136-145) mmol/L Potassium (3.5-5.1) mmol/L Chloride (98-107) mmol/L Carbon Dioxide (21-32) mmol/L Anion Gap (3-11) BUN (6-23) mg/dl Creatinine (0.6-1.4) mg/dl Est Cr Clr Drug Dosing ml/min Est GFR ( Amer) ml/min Est GFR (Non-Af Amer) ml/min BUN/Creatinine Ratio (10-20) Glucose (70-99(Fasting)) mg/dl POC Glucose 146 H (70-99) mg/dl Calcium (8.6-10.3) mg/dl Magnesium (1.7-2.4) mg/dl Total Bilirubin (0.2-1.0) mg/dl AST (13-39) U/L ALT (7-52) U/L Alkaline Phosphatase (34-104) U/L Total Protein (6.0-8.3) gm/dl Albumin (3.4-5.0) gm/dl Globulin (2.5-4.0) gm/dl Albumin/Globulin Ratio (0.9-2) Urine Color Yellow Urine Appearance Clear (Clear) Urine pH 8.5 H (4.5-7.5) Ur Specific [place] > 1.045 H (1.000-1.030) Urine Protein 1+ H (Negative) Urine Glucose (UA) Negative (Negative) Urine Ketones 1+ H (Negative) Urine Blood Negative (Negative) Urine Nitrite Negative (Negative) Urine Bilirubin Negative (Negative) Urine Urobilinogen Negative (Negative) Ur Leukocyte Esterase Negative (Negative) Urine WBC (Auto) 1-5 (0-5) /hpf Urine RBC (Auto) 0-4 (0-4) /hpf U Hyaline Cast (Auto) 1-5 (0-5) /lpf U Epithel Cells (Auto) 10-20 H (0-5) /lpf Urine Bacteria (Auto) Negative (Negative) Nasal Screen MRSA (PCR) Negative (Negative) 11/23/23 Range/Units 10:28 WBC (4.8-10.8) K/ul RBC (4.70-6.10) M/uL Hgb (14.0-18.0) g/dl Hct (42.0-52.0) % MCV (80.0-100.0) fL MCH (25.0-34.0) pg MCHC (32.0-36.0) g/dL RDW Std Deviation (36.4-46.3) fL RDW Coeff of Steven (11.5-14.5) % Plt Count (130-400) K/uL MPV (9.4-12.4) fL Immature Gran % (Auto) % Neut % (Auto) % Lymph % (Auto) % [place] % (Auto) % Eos % (Auto) % Baso % (Auto) % Neut # (Auto) (1.40-6.50) K/uL Lymph # (Auto) (1.20-3.40) K/uL [place] # (Auto) (0.11-0.59) K/uL Eos # (Auto) (0.00-0.50) K/uL Baso # (Auto) (0.00-0.20) K/uL Immature Gran # (Auto) (0.01-0.20) K/uL Sodium (136-145) mmol/L Potassium (3.5-5.1) mmol/L Chloride (98-107) mmol/L Carbon Dioxide (21-32) mmol/L Anion Gap (3-11) BUN (6-23) mg/dl Creatinine (0.6-1.4) mg/dl Est Cr Clr Drug Dosing ml/min Est GFR ( Amer) ml/min Est GFR (Non-Af Amer) ml/min BUN/Creatinine Ratio (10-20) Glucose (70-99(Fasting)) mg/dl POC Glucose (70-99) mg/dl Calcium (8.6-10.3) mg/dl Magnesium 1.9 (1.7-2.4) mg/dl Total Bilirubin (0.2-1.0) mg/dl AST (13-39) U/L ALT (7-52) U/L Alkaline Phosphatase (34-104) U/L Total Protein (6.0-8.3) gm/dl Albumin (3.4-5.0) gm/dl Globulin (2.5-4.0) gm/dl Albumin/Globulin Ratio (0.9-2) Urine Color Urine Appearance (Clear) Urine pH (4.5-7.5) Ur Specific [place] (1.000-1.030) Urine Protein (Negative) Urine Glucose (UA) (Negative) Urine Ketones (Negative) Urine Blood (Negative) Urine Nitrite (Negative) Urine Bilirubin (Negative) Urine Urobilinogen (Negative) Ur Leukocyte Esterase (Negative) Urine WBC (Auto) (0-5) /hpf Urine RBC (Auto) (0-4) /hpf U Hyaline Cast (Auto) (0-5) /lpf U Epithel Cells (Auto) (0-5) /lpf Urine Bacteria (Auto) (Negative) Nasal Screen MRSA (PCR) (Negative)
[2023-11-24] MEDS: MoRPHine SULFATE 4 MG/ML 1 ML CARP\\VIAL IV PRN (20:51)
[2023-11-25 07:11] LABS: Basophils # (auto) 0.06 K/uL (0.00-0.20); Basophils % (auto) 0.6 %; Eosinophils # (auto) 0.24 K/uL (0.00-0.50); Eosinophils % (auto) 2.2 %; Hematocrit (blood only) 34.4 % (42.0-52.0); Hemoglobin 11.3 g/dl (14.0-18.0); Immature Granulocytes # (auto) 0.04 K/uL (0.01-0.20); Immature Granulocytes % (auto) 0.4 %; Lymphocytes # (auto) 1.18 K/uL (1.20-3.40); Lymphocytes % (auto) 10.8 %; Mean Corpuscular Hemoglobin 31.7 pg (25.0-34.0); Mean Corpuscular Hgb Conc 32.8 g/dL (32.0-36.0); Mean Corpuscular Volume 96.6 fL (80.0-100.0); Mean Platelet Volume 10.5 fL (9.4-12.4); Monocytes # (auto) 0.61 K/uL (0.11-0.59); Monocytes % (auto) 5.6 %; Neutrophils # (auto) 8.76 K/uL (1.40-6.50); Neutrophils % (auto) 80.4 %; Platelet Count 216 K/uL (130-400); RDW Coefficient of Variation 14.1 % (11.5-14.5); RDW Standard Deviation 50.1 fL (36.4-46.3); Red Blood Count 3.56 M/uL (4.70-6.10); White Blood Count 10.89 K/ul (4.8-10.8)
[2023-11-25 07:23] LABS: Estimated Average Glucose 105 mg/dl; Hemoglobin A1C 5.3 % (4.5-5.6)
[2023-11-25 07:25] LABS: Albumin Globulin Ratio 0.9 (0.9-2); Albumin Level 2.9 gm/dl (3.4-5.0); BUN Creatinine Ratio 23.3 (10-20); Bilirubin,Total 0.9 mg/dl (0.2-1.0); Creatinine Clr Calc Pharmacy 105.7 ml/min; Est GFR (Non-African American) 92.3 ml/min; Globulin 3.2 gm/dl (2.5-4.0); Magnesium 1.9 mg/dl (1.7-2.4); Phosphorus 2.4 mg/dl (2.5-4.9); Potassium 3.6 mmol/L (3.5-5.1); Total Protein 6.1 gm/dl (6.0-8.3)
[2023-11-25] MEDS ORDERED: POTASSIUM PHOS 3 MMOL/1 ML INFUSION IV STA (09:52)
--- NOTE | 2023-11-25 10:24 | Surgery Progress Note ---
Date of Service November 25, 2023 Assessment & Plan (1) SBO (small bowel obstruction): (2) Incarcerated hernia: Plan POD#2 s/p exploratory laparotomy, small bowel resection, hernia repair Doing well Continue IV pain control - will add scheduled Tylenol and Toradol Awaiting bowel function, may begin sips and chips Encourage out of bed to chair with nursing assist we will need to be aggressive with mobility, as he is very difficult to encourage to walk PT/OT consults DVT prophylaxis with SCD boots and Lovenox Aggressive pulmonary toilet with incentive spirometry Admission and Anticipated Discharge Date Admission Date: November 23, 2023 Subjective doing okay this morning. Still with significant pain when moving. Very difficult to get into the chair yesterday. No nausea or vomiting. Physical Exam Physical Exam: AFVSS NAD, A&O x 3 Abdomen: Soft, mild TTP Incision C/D/I HOLLIE with minimal serosanguineous output Binder in place Results & Data Vital Signs (Past 12 Hours) Vital Signs Temp Pulse Pulse Resp BP BP Pulse Ox 11/25/23 07:59 36.7 C 73 20 134/68 97 11/25/23 07:50 11/25/23 05:35 65 104/61 11/25/23 05:19 74 129/78 11/25/23 03:41 36.7 C 74 18 129/78 96 11/25/23 00:41 67 104/54 L 11/25/23 00:21 37.0 C 67 18 104/54 L 97 11/25/23 00:07 74 122/61 O2 Del Method O2 Flow Rate 11/25/23 07:59 Nasal Cannula 3 11/25/23 07:50 Room Air 11/25/23 05:35 11/25/23 05:19 11/25/23 03:41 Nasal Cannula 3.0 11/25/23 00:41 11/25/23 00:21 Nasal Cannula 3.0 11/25/23 00:07
[2023-11-25] MEDS: POTASSIUM PHOSPHATE 15 MMOL in SODIUM CHLORIDE 0.9% 250 ML IV ONE (10:55)
[2023-11-25] MEDS: ACETAMINOPHEN 1,000 MG/100 ML VIAL IV SCH (10:55)
[2023-11-25] MEDS: KETOROLAC TROMETHAMINE 15 MG/ML VIAL IV SCH (10:57)
[2023-11-25] MEDS: KETOROLAC 30 MG/ML VIAL IV PRN (13:16)
--- NOTE | 2023-11-25 16:00 | Hospitalist Progress Note ---
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 SBO (small bowel obstruction) Incarcerated ventral hernia In ER T: 36.6 C, P: 89, R: 18, BP 133/59, 97% on room air WBC elevated at 14K Blood Cx x [address] abd/pelvis concerning for SBO with incarcerated hernia General Surgery consulted, appreciate recs -s/p bowel resection and hernia repair on 11/22 with bowel resection of Meckel's diverticulum and ischemic portion of bowel -Activity of OOB with assistance into chair post/op Day 1. Nursing with difficulty getting pt up and into the chair. -Post op Day 2- PT/OT orders in Pain Control, antiemetics Advance diet per surgery recs Continue to monitor postop on telemetry Acute Blood loss anemia Hgb dropped from 14.4 to 12.4 post op Continue to monitor with Am hgb Electrolyte Abnormalities Hypokalemia- K of 3.3 on admission, replete as needed Hyponatremia-Hx of SIADH. Sodium of 135 on admission. currently wnl. Continue to monitor Hyperglycemia Prediabetes Glucose levels elevated A1c: 5.3 on 08/31/2023 Hold home metformin NovoLog sliding scale correction only for now AM hgb a1c pending Elevated liver enzymes T bili and alk phos levels elevated on admission Currently wnl Continue to monitor with AM labs Ketonuria Dehydration UA with noted ketones Suggestive of dehydration, likely in acute SBO/incarcerated hernia noted above On NSS, reduced to 80 due to concern for susceptibility to fluid overload. Cr wnl Continue to trend Cr with AM labs Cardiomegaly Known Hx for pt Cardiomegaly noted on abd/pelvis CT Hs-troponin wnl EKG noting sinus rhythm with frequent atrial ectopy. Echo ordered and pending Prostatomegaly Chronic bladder outlet obstruction Possible underlying mucosal lesion CT abd/pelvis noting "Marked prostatomegaly with evidence of chronic bladder outlet obstruction. There is asymmetric bladder wall thickening seen anteriorly on the left. Although this may be related to chronic outlet obstruction, an underlying mucosal lesion is not excluded. Follow up with urology is recommended for further assessment." UA unremarkable Urology follow up outpatient HTN Currently wnl Converted home metoprolol succinate to IV metoprolol tartrate while n.p.o. Holding Lasix Continue to monitor, resume home meds as soon as able Dyslipidemia Would plan to resume atorvastatin when able to have oral intake PAF (paroxysmal atrial fibrillation) Not on anticoagulation Convert home metoprolol succinate to IV metoprolol tartrate while n.p.o. Monitor on telemetry Leg edema History of chronic BLE edema On Lasix Currently appears euvolemic Hold Lasix and resume as able Diet: currently NPO per Gen Surg DVT Prophylaxis: SCDs and Lovenox per Surgery Full Code as per discussion with patient Dispo: PT/OT for recs as soon as able Admission and Anticipated Discharge Date Admission Date: November 23, 2023 Subjective Pt seen in the AM Stated that he was thirsty. Having pain. Review of Systems Review of Systems: All systems reviewed & are unremarkable except as noted in Subjective Physical Exam Physical Exam: General: Alert, oriented. No acute distress Skin: No noted rashes or bruises Psych: Appropriate mood and affect Neuro: No gross deficits HEENT: NC/AT Chest: Nontender to palpation. CV: RRR, + murmur Resp: Breath sounds clear bilaterally, no increased effort of breathing. Abdomen: Soft, tender, bandage in place Extremities: edema in lower extremities bilaterally. Results & Data Results & Data Vital Signs (Past 12 Hours) Vital Signs Temp Pulse Pulse Resp BP BP Pulse Ox 11/25/23 15:15 36.7 C 94 H 20 137/79 97 11/25/23 15:09 66 11/25/23 13:22 85 134/78 11/25/23 13:07 80 137/74 11/25/23 11:59 36.7 C 73 19 135/67 95 11/25/23 07:59 36.7 C 73 20 134/68 97 11/25/23 07:50 11/25/23 05:35 65 104/61 11/25/23 05:19 74 129/78 O2 Del Method O2 Flow Rate 11/25/23 15:15 Room Air 11/25/23 15:09 11/25/23 13:22 11/25/23 13:07 11/25/23 11:59 Room Air 11/25/23 07:59 Nasal Cannula 3 11/25/23 07:50 Room Air 11/25/23 05:35 11/25/23 05:19 (5) HTN (hypertension) Hypertension type: essential hypertension Qualified Code(s): I10 - Essential (primary) hypertension
[2023-11-26 07:04] LABS: Basophils # (auto) 0.04 K/uL (0.00-0.20); Basophils % (auto) 0.7 %; Eosinophils # (auto) 0.29 K/uL (0.00-0.50); Eosinophils % (auto) 5.1 %; Hemoglobin 10.4 g/dl (14.0-18.0); Immature Granulocytes # (auto) 0.01 K/uL (0.01-0.20); Immature Granulocytes % (auto) 0.2 %; Lymphocytes # (auto) 0.75 K/uL (1.20-3.40); Lymphocytes % (auto) 13.2 %; Mean Corpuscular Hemoglobin 31.8 pg (25.0-34.0); Mean Corpuscular Hgb Conc 32.5 g/dL (32.0-36.0); Mean Corpuscular Volume 97.9 fL (80.0-100.0); Mean Platelet Volume 10.6 fL (9.4-12.4); Monocytes # (auto) 0.37 K/uL (0.11-0.59); Monocytes % (auto) 6.5 %; Neutrophils # (auto) 4.22 K/uL (1.40-6.50); Neutrophils % (auto) 74.3 %; Platelet Count 210 K/uL (130-400); RDW Coefficient of Variation 13.7 % (11.5-14.5); RDW Standard Deviation 49.3 fL (36.4-46.3); Red Blood Count 3.27 M/uL (4.70-6.10); White Blood Count 5.68 K/ul (4.8-10.8)
[2023-11-26 07:21] LABS: Albumin Globulin Ratio 0.9 (0.9-2); Albumin Level 2.7 gm/dl (3.4-5.0); BUN Creatinine Ratio 27.3 (10-20); Bilirubin,Total 0.9 mg/dl (0.2-1.0); Calcium 8.6 mg/dl (8.6-10.3); Creatinine Clr Calc Pharmacy 96.7 ml/min; Est GFR (African American) 102.9 ml/min; Est GFR (Non-African American) 88.8 ml/min; Globulin 3.1 gm/dl (2.5-4.0); Magnesium 1.9 mg/dl (1.7-2.4); Phosphorus 2.7 mg/dl (2.5-4.9); Potassium 3.4 mmol/L (3.5-5.1); Total Protein 5.8 gm/dl (6.0-8.3)
[2023-11-26] MEDS: ONDANSETRON INJ 2 MG/ML 2 ML VIAL IV PRN (09:52)
--- NOTE | 2023-11-26 10:25 | Surgery Progress Note ---
Date of Service November 26, 2023 Assessment & Plan (1) SBO (small bowel obstruction): (2) Incarcerated hernia: Plan POD#3 s/p exploratory laparotomy, small bowel resection, hernia repair Doing well Continue IV pain control Awaiting bowel function, continue sips and chips Encourage out of bed to chair with nursing assist we will need to be aggressive with mobility, as he is very difficult to encourage to walk PT/OT consults DVT prophylaxis with SCD boots and Lovenox Aggressive pulmonary toilet with incentive spirometry Admission and Anticipated Discharge Date Admission Date: November 23, 2023 Subjective Some upper incisional pain today; no nausea or vomiting. No flatus yet. No fevers or chills Physical Exam Physical Exam: AFVSS NAD, A&O x 3 Abdomen: Soft, mild TTP Incision C/D/I HOLLIE with minimal serosanguineous output Binder in place Results & Data Vital Signs (Past 12 Hours) Vital Signs Temp Pulse Pulse Resp BP BP Pulse Ox 11/26/23 07:11 36.5 C 74 18 139/74 93 11/26/23 06:19 128/68 11/26/23 05:39 126/75 11/26/23 02:48 37.1 C 72 18 126/75 92 11/26/23 00:23 75 119/67 11/26/23 00:03 78 159/70 H 11/25/23 23:06 36.4 C L 78 18 159/70 H 93 O2 Del Method 11/26/23 07:11 Room Air 11/26/23 06:19 11/26/23 05:39 11/26/23 02:48 Room Air 11/26/23 00:23 11/26/23 00:03 11/25/23 23:06 Room Air Laboratory Results 11/26/23 11/26/23 11/25/23 Range/Units 06:43 05:59 23:39 WBC 5.68 (4.8-10.8) K/ul RBC 3.27 L (4.70-6.10) M/uL Hgb 10.4 L (14.0-18.0) g/dl Hct 32.0 L (42.0-52.0) % MCV 97.9 (80.0-100.0) fL MCH 31.8 (25.0-34.0) pg MCHC 32.5 (32.0-36.0) g/dL RDW Std Deviation 49.3 H (36.4-46.3) fL RDW Coeff of Steven 13.7 (11.5-14.5) % Plt Count 210 (130-400) K/uL MPV 10.6 (9.4-12.4) fL Immature Gran % (Auto) 0.2 % Neut % (Auto) 74.3 % Lymph % (Auto) 13.2 % [place] % (Auto) 6.5 % Eos % (Auto) 5.1 % Baso % (Auto) 0.7 % Neut # (Auto) 4.22 (1.40-6.50) K/uL Lymph # (Auto) 0.75 L (1.20-3.40) K/uL [place] # (Auto) 0.37 (0.11-0.59) K/uL Eos # (Auto) 0.29 (0.00-0.50) K/uL Baso # (Auto) 0.04 (0.00-0.20) K/uL Immature Gran # (Auto) 0.01 (0.01-0.20) K/uL Sodium 138 (136-145) mmol/L Potassium 3.4 L (3.5-5.1) mmol/L Chloride 106 (98-107) mmol/L Carbon Dioxide 25 (21-32) mmol/L Anion Gap 7 (3-11) BUN 18 (6-23) mg/dl Creatinine 0.66 (0.6-1.4) mg/dl Est Cr Clr Drug Dosing 96.7 ml/min Est GFR ( Amer) 102.9 ml/min Est GFR (Non-Af Amer) 88.8 ml/min BUN/Creatinine Ratio 27.3 H (10-20) Glucose 78 (70-99(Fasting)) mg/dl POC Glucose 85 100 H (70-99) mg/dl Calcium 8.6 (8.6-10.3) mg/dl Phosphorus 2.7 (2.5-4.9) mg/dl Magnesium 1.9 (1.7-2.4) mg/dl Total Bilirubin 0.9 (0.2-1.0) mg/dl AST 20 (13-39) U/L ALT 11 (7-52) U/L Alkaline Phosphatase 93 (34-104) U/L Total Protein 5.8 L (6.0-8.3) gm/dl Albumin 2.7 L (3.4-5.0) gm/dl Globulin 3.1 (2.5-4.0) gm/dl Albumin/Globulin Ratio 0.9 (0.9-2) 11/25/23 11/25/23 Range/Units 18:06 11:55 WBC (4.8-10.8) K/ul RBC (4.70-6.10) M/uL Hgb (14.0-18.0) g/dl Hct (42.0-52.0) % MCV (80.0-100.0) fL MCH (25.0-34.0) pg MCHC (32.0-36.0) g/dL RDW Std Deviation (36.4-46.3) fL RDW Coeff of Steven (11.5-14.5) % Plt Count (130-400) K/uL MPV (9.4-12.4) fL Immature Gran % (Auto) % Neut % (Auto) % Lymph % (Auto) % [place] % (Auto) % Eos % (Auto) % Baso % (Auto) % Neut # (Auto) (1.40-6.50) K/uL Lymph # (Auto) (1.20-3.40) K/uL [place] # (Auto) (0.11-0.59) K/uL Eos # (Auto) (0.00-0.50) K/uL Baso # (Auto) (0.00-0.20) K/uL Immature Gran # (Auto) (0.01-0.20) K/uL Sodium (136-145) mmol/L Potassium (3.5-5.1) mmol/L Chloride (98-107) mmol/L Carbon Dioxide (21-32) mmol/L Anion Gap (3-11) BUN (6-23) mg/dl Creatinine (0.6-1.4) mg/dl Est Cr Clr Drug Dosing ml/min Est GFR ( Amer) ml/min Est GFR (Non-Af Amer) ml/min BUN/Creatinine Ratio (10-20) Glucose (70-99(Fasting)) mg/dl POC Glucose 99 96 (70-99) mg/dl Calcium (8.6-10.3) mg/dl Phosphorus (2.5-4.9) mg/dl Magnesium (1.7-2.4) mg/dl Total Bilirubin (0.2-1.0) mg/dl AST (13-39) U/L ALT (7-52) U/L Alkaline Phosphatase (34-104) U/L Total Protein (6.0-8.3) gm/dl Albumin (3.4-5.0) gm/dl Globulin (2.5-4.0) gm/dl Albumin/Globulin Ratio (0.9-2)
[2023-11-26] MEDS: POTASSIUM CHLORIDE CRTAB 20 MEQ TABCR PO STA (12:56)
--- NOTE | 2023-11-26 15:25 | Hospitalist Progress Note ---
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 SBO (small bowel obstruction) Incarcerated ventral hernia In ER T: 36.6 C, P: 89, R: 18, BP 133/59, 97% on room air WBC elevated at 14K Blood Cx x [address] abd/pelvis concerning for SBO with incarcerated hernia General Surgery consulted, appreciate recs -s/p bowel resection and hernia repair on 11/22 with bowel resection of Meckel's diverticulum and ischemic portion of bowel -Activity of OOB with assistance into chair post/op Day 1. Nursing with difficulty getting pt up and into the chair. -Post op Day 3 PT/OT orders in Pain Control, antiemetics Advance diet per surgery recs Continue to monitor postop on telemetry Acute Blood loss anemia Hgb dropped from 14.4 to 12.4 post op Continue to monitor with Am hgb Electrolyte Abnormalities Hypokalemia- K of 3.3 on admission, replete as needed Hyponatremia-Hx of SIADH. Sodium of 135 on admission. currently wnl. Continue to monitor Hyperglycemia Prediabetes Glucose levels elevated A1c: 5.3 on 08/31/2023 Hold home metformin NovoLog sliding scale correction only for now AM hgb a1c pending Elevated liver enzymes T bili and alk phos levels elevated on admission Currently wnl Continue to monitor with AM labs Ketonuria Dehydration UA with noted ketones Suggestive of dehydration, likely in acute SBO/incarcerated hernia noted above On NSS, reduced to 80 due to concern for susceptibility to fluid overload. Cr wnl Continue to trend Cr with AM labs Cardiomegaly Known Hx for pt Cardiomegaly noted on abd/pelvis CT Hs-troponin wnl EKG noting sinus rhythm with frequent atrial ectopy. Echo ordered and pending Prostatomegaly Chronic bladder outlet obstruction Possible underlying mucosal lesion CT abd/pelvis noting "Marked prostatomegaly with evidence of chronic bladder outlet obstruction. There is asymmetric bladder wall thickening seen anteriorly on the left. Although this may be related to chronic outlet obstruction, an underlying mucosal lesion is not excluded. Follow up with urology is recommended for further assessment." UA unremarkable Urology follow up outpatient HTN Currently wnl Converted home metoprolol succinate to IV metoprolol tartrate while n.p.o. Holding Lasix Continue to monitor, resume home meds as soon as able Dyslipidemia Would plan to resume atorvastatin when able to have oral intake PAF (paroxysmal atrial fibrillation) Not on anticoagulation Convert home metoprolol succinate to IV metoprolol tartrate while n.p.o. Monitor on telemetry Leg edema History of chronic BLE edema On Lasix Currently appears euvolemic Hold Lasix and resume as able Diet: currently NPO per Gen Surg DVT Prophylaxis: SCDs and Lovenox per Surgery Full Code as per discussion with patient Dispo: PT/OT for recs as soon as able Admission and Anticipated Discharge Date Admission Date: November 23, 2023 Subjective Seen in the AM, son at bedside. Stated that he was on the bedpan, hoping to poop. Review of Systems Review of Systems: All systems reviewed & are unremarkable except as noted in Subjective Physical Exam Physical Exam: General: Alert, oriented. No acute distress Skin: No noted rashes or bruises Psych: Appropriate mood and affect Neuro: No gross deficits HEENT: NC/AT Chest: Nontender to palpation. CV: RRR, + murmur Resp: Breath sounds clear bilaterally, no increased effort of breathing. Abdomen: Soft, tender, bandage in place Extremities: edema in lower extremities bilaterally. Results & Data Results & Data Vital Signs (Past 12 Hours) Vital Signs Temp Pulse Pulse Resp BP BP Pulse Ox 11/26/23 13:28 73 122/65 11/26/23 11:06 36.9 C 80 18 122/65 90 11/26/23 07:11 36.5 C 74 18 139/74 93 11/26/23 06:19 128/68 11/26/23 05:39 126/75 O2 Del Method 11/26/23 13:28 11/26/23 11:06 Room Air 11/26/23 07:11 Room Air 11/26/23 06:19 11/26/23 05:39 (5) HTN (hypertension) Hypertension type: essential hypertension Qualified Code(s): I10 - Essential (primary) hypertension
[2023-11-26] MEDS ORDERED: Nursing to Pharmacy Communication SCH (17:30)
[2023-11-26] MEDS: INSULIN ASPART PER UNIT CHARGE SC SCH (20:28)
[2023-11-26] MEDS: POTASSIUM CHLORIDE CRTAB 20 MEQ TABCR PO SCH (20:35)
[2023-11-27] MEDS: CALCIUM CARBONATE 500 MG CHEWABLE TAB PO PRN (06:47)
[2023-11-27 07:42] LABS: Basophils # (auto) 0.02 K/uL (0.00-0.20); Basophils % (auto) 0.3 %; Eosinophils # (auto) 0.38 K/uL (0.00-0.50); Eosinophils % (auto) 5.2 %; Hemoglobin 11.4 g/dl (14.0-18.0); Immature Granulocytes # (auto) 0.02 K/uL (0.01-0.20); Immature Granulocytes % (auto) 0.3 %; Lymphocytes # (auto) 0.87 K/uL (1.20-3.40); Lymphocytes % (auto) 11.8 %; Mean Corpuscular Hemoglobin 31.1 pg (25.0-34.0); Mean Corpuscular Hgb Conc 32.6 g/dL (32.0-36.0); Mean Corpuscular Volume 95.4 fL (80.0-100.0); Mean Platelet Volume 10.4 fL (9.4-12.4); Monocytes # (auto) 0.54 K/uL (0.11-0.59); Monocytes % (auto) 7.3 %; Neutrophils # (auto) 5.53 K/uL (1.40-6.50); Neutrophils % (auto) 75.1 %; Platelet Count 248 K/uL (130-400); RDW Coefficient of Variation 13.5 % (11.5-14.5); RDW Standard Deviation 47.6 fL (36.4-46.3); Red Blood Count 3.67 M/uL (4.70-6.10); White Blood Count 7.36 K/ul (4.8-10.8)
[2023-11-27 07:58] LABS: Albumin Globulin Ratio 0.9 (0.9-2); Albumin Level 2.9 gm/dl (3.4-5.0); BUN Creatinine Ratio 32.8 (10-20); Bilirubin,Total 0.6 mg/dl (0.2-1.0); Calcium 8.7 mg/dl (8.6-10.3); Creatinine Clr Calc Pharmacy 104.3 ml/min; Est GFR (African American) 106.3 ml/min; Est GFR (Non-African American) 91.7 ml/min; Globulin 3.2 gm/dl (2.5-4.0); Phosphorus 2.4 mg/dl (2.5-4.9); Potassium 3.1 mmol/L (3.5-5.1); Total Protein 6.1 gm/dl (6.0-8.3)
[2023-11-27] MEDS ORDERED: oxyCODONE/ACETAMINOPHEN 5mg/325mg TAB PO PRN (08:08)
--- NOTE | 2023-11-27 09:58 | Surgery Progress Note ---
Date of Service November 27, 2023 Assessment & Plan (1) SBO (small bowel obstruction): (2) Incarcerated hernia: Plan POD#4 s/p exploratory laparotomy, small bowel resection, hernia repair Doing well Continue IV Tylenol schedule and Toradol prn Continue clear liquids, advance to fulls for dinner Encourage out of bed to chair with nursing assist we will need to be aggressive with mobility, as he is very difficult to encourage to walk PT/OT consults DVT prophylaxis with SCD boots and Lovenox Aggressive pulmonary toilet with incentive spirometry Discussed with Dr. Rubalcava who agrees with above. Admission and Anticipated Discharge Date Admission Date: November 23, 2023 Subjective having mild abdominal pain this morning but controlled no n,v tolerated clear liquids but did not eat much continues to have loose bowel movements and pass gas urinating on own since Hernández removed Physical Exam Constitutional: WD/WN, vitals as above + obese, cooperative and comfortable; no acute distress and not ill appearing Gastrointestinal (Abdomen): Inspection/Auscultation: abdomen normal to inspection, normal bowel sounds, + abdominal surgical incision (clean/dry/intact with da) and + abdominal surgical drain present (serosanguineous); abdomen not distended Percussion/Palpation: + abdomen tender (mild in the LUQ and at midline incision) and abdomen soft; no guarding, abdomen not rigid and abdomen not firm Psychiatric: Orientation: alert and oriented x 3 Results & Data Vital Signs (Past 12 Hours) Vital Signs Temp Pulse Pulse Resp BP BP Pulse Ox 11/27/23 07:24 36.6 C 67 18 160/73 H 89 L 11/27/23 05:58 65 125/79 11/27/23 05:43 70 159/69 H 11/27/23 05:39 70 159/69 H 11/27/23 03:05 36.7 C 78 18 127/80 94 11/27/23 00:35 71 138/65 11/27/23 00:35 71 138/65 11/27/23 00:20 77 177/69 H 11/26/23 23:41 77 177/69 H 11/26/23 22:07 36.8 C 74 18 123/84 93 11/26/23 22:00 74 O2 Del Method 11/27/23 07:24 Room Air 11/27/23 05:58 11/27/23 05:43 11/27/23 05:39 11/27/23 03:05 Room Air 11/27/23 00:35 11/27/23 00:35 11/27/23 00:20 11/26/23 23:41 11/26/23 22:07 Room Air 11/26/23 22:00 Laboratory Results 11/27/23 11/27/23 11/26/23 Range/Units 07:26 07:22 19:41 WBC 7.36 (4.8-10.8) K/ul RBC 3.67 L (4.70-6.10) M/uL Hgb 11.4 L (14.0-18.0) g/dl Hct 35.0 L (42.0-52.0) % MCV 95.4 (80.0-100.0) fL MCH 31.1 (25.0-34.0) pg MCHC 32.6 (32.0-36.0) g/dL RDW Std Deviation 47.6 H (36.4-46.3) fL RDW Coeff of Steven 13.5 (11.5-14.5) % Plt Count 248 (130-400) K/uL MPV 10.4 (9.4-12.4) fL Immature Gran % (Auto) 0.3 % Neut % (Auto) 75.1 % Lymph % (Auto) 11.8 % [place] % (Auto) 7.3 % Eos % (Auto) 5.2 % Baso % (Auto) 0.3 % Neut # (Auto) 5.53 (1.40-6.50) K/uL Lymph # (Auto) 0.87 L (1.20-3.40) K/uL [place] # (Auto) 0.54 (0.11-0.59) K/uL Eos # (Auto) 0.38 (0.00-0.50) K/uL Baso # (Auto) 0.02 (0.00-0.20) K/uL Immature Gran # (Auto) 0.02 (0.01-0.20) K/uL Sodium 138 (136-145) mmol/L Potassium 3.1 L (3.5-5.1) mmol/L Chloride 106 (98-107) mmol/L Carbon Dioxide 24 (21-32) mmol/L Anion Gap 8 (3-11) BUN 20 (6-23) mg/dl Creatinine 0.61 (0.6-1.4) mg/dl Est Cr Clr Drug Dosing 104.3 ml/min Est GFR ( Amer) 106.3 ml/min Est GFR (Non-Af Amer) 91.7 ml/min BUN/Creatinine Ratio 32.8 H (10-20) Glucose 90 (70-99(Fasting)) mg/dl POC Glucose 93 83 (70-99) mg/dl Calcium 8.7 (8.6-10.3) mg/dl Phosphorus 2.4 L (2.5-4.9) mg/dl Magnesium 2.0 (1.7-2.4) mg/dl Total Bilirubin 0.6 (0.2-1.0) mg/dl AST 22 (13-39) U/L ALT 15 (7-52) U/L Alkaline Phosphatase 100 (34-104) U/L Total Protein 6.1 (6.0-8.3) gm/dl Albumin 2.9 L (3.4-5.0) gm/dl Globulin 3.2 (2.5-4.0) gm/dl Albumin/Globulin Ratio 0.9 (0.9-2) 11/26/23 11/26/23 Range/Units 16:56 11:07 WBC (4.8-10.8) K/ul RBC (4.70-6.10) M/uL Hgb (14.0-18.0) g/dl Hct (42.0-52.0) % MCV (80.0-100.0) fL MCH (25.0-34.0) pg MCHC (32.0-36.0) g/dL RDW Std Deviation (36.4-46.3) fL RDW Coeff of Steven (11.5-14.5) % Plt Count (130-400) K/uL MPV (9.4-12.4) fL Immature Gran % (Auto) % Neut % (Auto) % Lymph % (Auto) % [place] % (Auto) % Eos % (Auto) % Baso % (Auto) % Neut # (Auto) (1.40-6.50) K/uL Lymph # (Auto) (1.20-3.40) K/uL [place] # (Auto) (0.11-0.59) K/uL Eos # (Auto) (0.00-0.50) K/uL Baso # (Auto) (0.00-0.20) K/uL Immature Gran # (Auto) (0.01-0.20) K/uL Sodium (136-145) mmol/L Potassium (3.5-5.1) mmol/L Chloride (98-107) mmol/L Carbon Dioxide (21-32) mmol/L Anion Gap (3-11) BUN (6-23) mg/dl Creatinine (0.6-1.4) mg/dl Est Cr Clr Drug Dosing ml/min Est GFR ( Amer) ml/min Est GFR (Non-Af Amer) ml/min BUN/Creatinine Ratio (10-20) Glucose (70-99(Fasting)) mg/dl POC Glucose 75 95 (70-99) mg/dl Calcium (8.6-10.3) mg/dl Phosphorus (2.5-4.9) mg/dl Magnesium (1.7-2.4) mg/dl Total Bilirubin (0.2-1.0) mg/dl AST (13-39) U/L ALT (7-52) U/L Alkaline Phosphatase (34-104) U/L Total Protein (6.0-8.3) gm/dl Albumin (3.4-5.0) gm/dl Globulin (2.5-4.0) gm/dl Albumin/Globulin Ratio (0.9-2)
[2023-11-27] MEDS: METOPROLOL SUCC 50MG EXT REL TAB PO SCH (12:34)
--- NOTE | 2023-11-27 12:48 | Hospitalist Progress Note ---
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 SBO (small bowel obstruction) Incarcerated ventral hernia In ER T: 36.6 C, P: 89, R: 18, BP 133/59, 97% on room air WBC elevated at 14K Blood Cx x [address] abd/pelvis concerning for SBO with incarcerated hernia General Surgery consulted, appreciate recs -s/p bowel resection and hernia repair on 11/22 with bowel resection of Meckel's diverticulum and ischemic portion of bowel -Activity of OOB with assistance into chair post/op Day 1. Nursing with difficulty getting pt up and into the chair. -Post op Day 4 PT/OT orders in Pain Control, antiemetics Advance diet per surgery recs Continue to monitor postop on telemetry Acute Blood loss anemia Hgb dropped from 14.4 to ~11 post op Continue to monitor with AM hgb Electrolyte Abnormalities Hypokalemia- K of 3.3 on admission, replete as needed Hyponatremia-Hx of SIADH. Sodium of 135 on admission. currently wnl. Continue to monitor Hyperglycemia Prediabetes Glucose levels elevated A1c: 5.3 on 08/31/2023 Hold home metformin NovoLog sliding scale correction only for now AM hgb a1c pending Elevated liver enzymes T bili and alk phos levels elevated on admission Currently wnl Continue to monitor with AM labs Ketonuria Dehydration UA with noted ketones Suggestive of dehydration, likely in acute SBO/incarcerated hernia noted above On NSS, reduced to 80 due to concern for susceptibility to fluid overload. Cr wnl Continue to trend Cr with AM labs Cardiomegaly Known Hx for pt Cardiomegaly noted on abd/pelvis CT Hs-troponin wnl EKG noting sinus rhythm with frequent atrial ectopy. Echo Prostatomegaly Chronic bladder outlet obstruction Possible underlying mucosal lesion CT abd/pelvis noting "Marked prostatomegaly with evidence of chronic bladder outlet obstruction. There is asymmetric bladder wall thickening seen anteriorly on the left. Although this may be related to chronic outlet obstruction, an underlying mucosal lesion is not excluded. Follow up with urology is recommended for further assessment." UA unremarkable Urology follow up outpatient HTN Currently wnl Contineu home po metoprolol succinate Continue to monitor, resume home meds as soon as able Dyslipidemia resumed atorvastatin PAF (paroxysmal atrial fibrillation) Not on anticoagulation continue home po metoprolol succinate Monitor on telemetry Leg edema History of chronic BLE edema On Lasix Currently appears euvolemic Lasix rsumed on 11/26, pt previously on fluids while npo Holding Lasix moving forard, resume as able Diet: currently NPO per Gen Surg DVT Prophylaxis: SCDs and Lovenox per Surgery Full Code as per discussion with patient Dispo: PT/OT for recs as soon as able Admission and Anticipated Discharge Date Admission Date: November 23, 2023 Subjective Pt was seen laying in bed. Denied acute concerns. Downgraded. Review of Systems Review of Systems: All systems reviewed & are unremarkable except as noted in Subjective Physical Exam Physical Exam: General: Alert, oriented. No acute distress Skin: No noted rashes or bruises Psych: Appropriate mood and affect Neuro: No gross deficits HEENT: NC/AT Chest: Nontender to palpation. CV: RRR, + murmur Resp: Breath sounds clear bilaterally, no increased effort of breathing. Abdomen: Soft, tender, bandage in place Extremities: edema in lower extremities bilaterally. Results & Data Results & Data Vital Signs (Past 12 Hours) Vital Signs Temp Pulse Pulse Resp BP BP Pulse Ox 11/27/23 11:11 36.8 C 70 19 175/82 H 97 11/27/23 10:00 64 11/27/23 10:00 11/27/23 07:24 36.6 C 67 18 160/73 H 89 L 11/27/23 05:58 65 125/79 11/27/23 05:43 70 159/69 H 11/27/23 05:39 70 159/69 H 11/27/23 03:05 36.7 C 78 18 127/80 94 O2 Del Method 11/27/23 11:11 Room Air 11/27/23 10:00 11/27/23 10:00 Room Air 11/27/23 07:24 Room Air 11/27/23 05:58 11/27/23 05:43 11/27/23 05:39 11/27/23 03:05 Room Air (5) HTN (hypertension) Hypertension type: essential hypertension Qualified Code(s): I10 - Essential (primary) hypertension
[2023-11-27] MEDS: FUROSEMIDE 40 MG TAB PO SCH (17:10)
[2023-11-27] MEDS: GABAPENTIN 100 MG CAP PO SCH (19:49)
[2023-11-27] MEDS: MAGNESIUM OXIDE 400 MG TAB PO SCH (19:51)
[2023-11-27] MEDS: POTASSIUM CHLORIDE CRTAB 20 MEQ TABCR PO STA (23:46)
[2023-11-28 07:28] LABS: Basophils # (auto) 0.03 K/uL (0.00-0.20); Basophils % (auto) 0.4 %; Eosinophils # (auto) 0.36 K/uL (0.00-0.50); Eosinophils % (auto) 4.8 %; Hemoglobin 11.8 g/dl (14.0-18.0); Immature Granulocytes # (auto) 0.02 K/uL (0.01-0.20); Immature Granulocytes % (auto) 0.3 %; Lymphocytes # (auto) 1.24 K/uL (1.20-3.40); Lymphocytes % (auto) 16.5 %; Mean Corpuscular Hemoglobin 31.6 pg (25.0-34.0); Mean Corpuscular Hgb Conc 33.7 g/dL (32.0-36.0); Mean Corpuscular Volume 93.6 fL (80.0-100.0); Mean Platelet Volume 10.4 fL (9.4-12.4); Monocytes # (auto) 0.63 K/uL (0.11-0.59); Monocytes % (auto) 8.4 %; Neutrophils # (auto) 5.24 K/uL (1.40-6.50); Neutrophils % (auto) 69.6 %; Platelet Count 269 K/uL (130-400); RDW Coefficient of Variation 13.4 % (11.5-14.5); RDW Standard Deviation 46.4 fL (36.4-46.3); Red Blood Count 3.74 M/uL (4.70-6.10); White Blood Count 7.52 K/ul (4.8-10.8)
[2023-11-28] MEDS: ARTIFICIAL TEARS OP SCH (07:38)
[2023-11-28 07:39] LABS: Albumin Globulin Ratio 0.9 (0.9-2); Albumin Level 2.7 gm/dl (3.4-5.0); Bilirubin,Total 0.5 mg/dl (0.2-1.0); Calcium 8.5 mg/dl (8.6-10.3); Creatinine Clr Calc Pharmacy 109.2 ml/min; Est GFR (Non-African American) 92.3 ml/min; Magnesium 1.8 mg/dl (1.7-2.4); Phosphorus 2.7 mg/dl (2.5-4.9); Potassium 3.1 mmol/L (3.5-5.1); Total Protein 5.7 gm/dl (6.0-8.3)
[2023-11-28] MEDS: CHOLECALCIFEROL 25 MCG (1000 UNITS) TAB PO SCH (07:39)
[2023-11-28] MEDS: ATORVASTATIN 40 MG TAB PO SCH (07:39)
[2023-11-28] MEDS: CEROVITE ADV FORMULA TAB PO SCH (07:39)
[2023-11-28] MEDS: POTASSIUM CHLORIDE CRTAB 20 MEQ TABCR PO SCH (07:39)
[2023-11-28] MEDS: GABAPENTIN 100 MG CAP PO SCH (07:40)
[2023-11-28] MEDS: DOCUSATE SODIUM SYRUP 100 MG/10 ML UDC PO SCH (07:41)
--- NOTE | 2023-11-28 09:13 | Hospitalist Progress Note ---
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 SBO (small bowel obstruction) Incarcerated ventral hernia In ER T: 36.6 C, P: 89, R: 18, BP 133/59, 97% on room air WBC elevated at 14K on admission -> now normalized Blood Cx x [address] abd/pelvis concerning for SBO with incarcerated hernia General Surgery consulted, appreciate recs -s/p bowel resection and hernia repair on 11/22 with bowel resection of Meckel's diverticulum and ischemic portion of bowel -Activity of OOB with assistance into chair post/op Day 1. Nursing with difficulty getting pt up and into the chair. -Post op Day 5, PT/OT -> plan for rehab Pain Control, antiemetics Advance diet per surgery recs - advanced to low fiber Continue to monitor postop on telemetry Acute Blood loss anemia Hgb dropped from 14.4 to ~11 post op Continue to monitor with AM hgb Hgb has been stable Electrolyte Abnormalities Hypokalemia- K of 3.3 on admission, replete and monitor Hyponatremia-Hx of SIADH. Sodium of 135 on admission. currently wnl. Continue to monitor Hyperglycemia Prediabetes Glucose levels elevated A1c: 5.3 on 08/31/2023 Hold home metformin NovoLog sliding scale correction only for now Current Hgb a1c 5.3% Elevated liver enzymes T bili and alk phos levels elevated on admission Currently wnl - resolved Ketonuria Dehydration UA with noted ketones Suggestive of dehydration, likely in acute SBO/incarcerated hernia noted above On NSS, reduced to 80 due to concern for susceptibility to fluid overload. Cr wnl Continue to trend Cr with AM labs Cardiomegaly Known Hx for pt Cardiomegaly noted on abd/pelvis CT Hs-troponin wnl EKG noting sinus rhythm with frequent atrial ectopy. Echo -LV systolic function abnormal EF 60 to 65%. RV systolic function is normal. Moderate valvular aortic stenosis. Aortic valve peak velocity of 3.2 m/s mean gradient of 20 mmHg. There is no pericardial effusion. Prostatomegaly Chronic bladder outlet obstruction Possible underlying mucosal lesion CT abd/pelvis noting "Marked prostatomegaly with evidence of chronic bladder outlet obstruction. There is asymmetric bladder wall thickening seen anteriorly on the left. Although this may be related to chronic outlet obstruction, an underlying mucosal lesion is not excluded. Follow up with urology is recommended for further assessment." UA unremarkable Urology follow up outpatient HTN Currently wnl Contineu home PO metoprolol succinate Continue to monitor, resume home meds as soon as able Dyslipidemia resumed atorvastatin PAF (paroxysmal atrial fibrillation) Not on anticoagulation continue home PO metoprolol succinate Monitor on telemetry Leg edema History of chronic BLE edema On Lasix Currently appears euvolemic Lasix resumed on 11/26, pt previously on fluids while npo Holding Lasix moving forward, resume as able Diet: low fiber diet per Gen Surg DVT Prophylaxis: SCDs and Lovenox per Surgery Full Code as per discussion with patient Dispo: PT/OT -> plan for rehab Admission and Anticipated Discharge Date Admission Date: November 23, 2023 Subjective Pt seen in follow up of SBO, s/p ex-lap, incarcerated ventral hernia Currently laying in bed in NAD Reports no significant abdominal pain, has loose stools No fever, chills, chest pain, or shortness of breath Discussed with RN at the bedside Needs PT/OT Per surgery - diet advanced to low fiber Review of Systems Review of Systems: All systems reviewed & are unremarkable except as noted in Subjective Physical Exam Physical Exam: General: obese, elderly M in NAD HEENT: NC/AT Chest: Nontender to palpation. CV: RRR, + murmur Resp: Breath sounds clear bilaterally, no increased effort of breathing. Abdomen: Soft, mildly tender to palp., + bowel sounds, dressings in place Extremities: minimal edema in lower extremities b/l, moves extremities Neuro: awake, alert, oriented, speech fluent, answers appropriately, moves extremities Skin: warm, dry Results & Data Results & Data Vital Signs (Past 12 Hours) Vital Signs Temp Pulse Pulse Resp BP BP Pulse Ox 11/28/23 07:16 36.4 C L 67 17 177/80 H 95 11/28/23 04:34 36.5 C 63 18 158/75 H 95 11/27/23 22:43 36.5 C 16 177/70 H 94 11/27/23 22:05 64 O2 Del Method 11/28/23 07:16 Room Air 11/28/23 04:34 Room Air 11/27/23 22:43 Room Air 11/27/23 22:05 Laboratory Results 11/28/23 11/27/23 Range/Units 06:48 11:36 WBC 7.52 (4.8-10.8) K/ul RBC 3.74 L (4.70-6.10) M/uL Hgb 11.8 L (14.0-18.0) g/dl Hct 35.0 L (42.0-52.0) % MCV 93.6 (80.0-100.0) fL MCH 31.6 (25.0-34.0) pg MCHC 33.7 (32.0-36.0) g/dL RDW Std Deviation 46.4 H (36.4-46.3) fL RDW Coeff of Tseven 13.4 (11.5-14.5) % Plt Count 269 (130-400) K/uL MPV 10.4 (9.4-12.4) fL Immature Gran % (Auto) 0.3 % Neut % (Auto) 69.6 % Lymph % (Auto) 16.5 % [place] % (Auto) 8.4 % Eos % (Auto) 4.8 % Baso % (Auto) 0.4 % Neut # (Auto) 5.24 (1.40-6.50) K/uL Lymph # (Auto) 1.24 (1.20-3.40) K/uL [place] # (Auto) 0.63 H (0.11-0.59) K/uL Eos # (Auto) 0.36 (0.00-0.50) K/uL Baso # (Auto) 0.03 (0.00-0.20) K/uL Immature Gran # (Auto) 0.02 (0.01-0.20) K/uL Sodium 136 (136-145) mmol/L Potassium 3.1 L (3.5-5.1) mmol/L Chloride 105 (98-107) mmol/L Carbon Dioxide 24 (21-32) mmol/L Anion Gap 7 (3-11) BUN 15 (6-23) mg/dl Creatinine 0.60 (0.6-1.4) mg/dl Est Cr Clr Drug Dosing 109.2 ml/min Est GFR ( Amer) 107.0 ml/min Est GFR (Non-Af Amer) 92.3 ml/min BUN/Creatinine Ratio 25.0 H (10-20) Glucose 86 (70-99(Fasting)) mg/dl POC Glucose 92 (70-99) mg/dl Calcium 8.5 L (8.6-10.3) mg/dl Phosphorus 2.7 (2.5-4.9) mg/dl Magnesium 1.8 (1.7-2.4) mg/dl Total Bilirubin 0.5 (0.2-1.0) mg/dl AST 23 (13-39) U/L ALT 18 (7-52) U/L Alkaline Phosphatase 92 (34-104) U/L Total Protein 5.7 L (6.0-8.3) gm/dl Albumin 2.7 L (3.4-5.0) gm/dl Globulin 3.0 (2.5-4.0) gm/dl Albumin/Globulin Ratio 0.9 (0.9-2) Medications Administered Current Inpatient Medications Artificial Tears (Artificial Tears) 1 drops OP QAM [facility] Stop: 12/28/23 08:59 Last Admin: 11/28/23 07:38 Dose: 1 drops Atorvastatin Calcium (Atorvastatin 40 Mg Tab) 40 mg PO DAILY [facility] Stop: 12/28/23 08:59 Last Admin: 11/28/23 07:39 Dose: 40 mg Calcium Carbonate (Calcium Carbonate 500 Mg Chewable Tab) 500 mg PO Q6H PRN PRN Reason: Indigestion Stop: 12/27/23 06:41 Last Admin: 11/27/23 06:47 Dose: 500 mg Dextrose (Dextrose 50% 50 Ml Syringe) 25 - 50 ml IV UD PRN; Protocol PRN Reason: Hypoglycemia Protocol Stop: 12/23/23 18:25 Docusate Sodium (Docusate Sodium Syrup 100 Mg/10 Ml Udc) 50 mg PO DAILY [facility] Stop: 12/28/23 08:59 Enoxaparin Sodium (Enoxaparin Inj 40 Mg/0.4 Ml Syr) 40 mg SQ QAM [facility] Stop: 12/24/23 08:59 Last Admin: 11/28/23 07:40 Dose: 40 mg Furosemide (Furosemide 40 Mg Tab) 40 mg PO [id number] [facility] Stop: 12/27/23 16:59 Last Admin: 11/27/23 17:10 Dose: 40 mg Gabapentin (Gabapentin 100 Mg Cap) 200 mg PO HS [facility] Stop: 12/27/23 20:59 Last Admin: 11/27/23 19:49 Dose: 200 mg Gabapentin (Gabapentin 100 Mg Cap) 100 mg PO DAILY [facility] Stop: 12/28/23 08:59 Last Admin: 11/28/23 07:40 Dose: 100 mg Glucagon (Glucagon For Inj 1 Mg Vial) 1 mg SQ UD PRN; Protocol PRN Reason: Hypoglycemia Protocol Stop: 12/23/23 18:25 Glucose (Glucose 10 Tab/Tube) 4 - 8 tab PO UD PRN; Protocol PRN Reason: Hypoglycemia Treatment Stop: 12/23/23 18:25 Glucose (Glucose 40% Gel 15 Gm Tube) 15 - 30 gm PO UD PRN; Protocol PRN Reason: Hypoglycemia Protocol Stop: 12/23/23 18:25 Acetaminophen (Ofirmev) 1,000 mg in 100 mls @ 400 mls/hr IV Q8H [facility] Stop: 11/28/23 09:59 Last Infusion: 11/28/23 02:31 Dose: Infused Potassium Chloride (K Rogers / Wtr) 10 meq in 100 mls @ 100 mls/hr IV ONE ONE Stop: 11/28/23 10:08 Magnesium Sulfate/Dextrose (Magnesium Sulfate / D5w) 1 gm in 100 mls @ 50 mls/hr IV ONE ONE Stop: 11/28/23 11:09 Insulin Aspart (Insulin Aspart Per Unit Charge) 0 units SC ACHS [facility] Stop: 12/26/23 20:59 Last Admin: 11/28/23 07:41 Dose: Not Given Ketorolac Tromethamine (Ketorolac 30 Mg/Ml Vial) 30 mg IV Q6H PRN PRN Reason: Pain Stop: 11/30/23 10:23 Last Admin: 11/26/23 19:46 Dose: 30 mg Magnesium Oxide (Magnesium Oxide 400 Mg Tab) 400 mg PO BID [facility] Stop: 12/27/23 20:59 Last Admin: 11/28/23 07:40 Dose: 400 mg Metoprolol Succinate (Metoprolol Succ 50mg Ext Rel Tab) 50 mg PO BID [facility] Stop: 12/27/23 20:59 Last Admin: 11/28/23 07:40 Dose: 50 mg Miscellaneous (Carbohydrates For Hypoglycemia ) 15 - 30 gm PO UD PRN PRN Reason: Hypoglycemia Protocol Stop: 12/23/23 18:25 Morphine Sulfate (Morphine Sulfate 4 Mg/Ml 1 Ml Carp\\Vial) 4 mg IV Q3H PRN PRN Reason: Pain (6,7,8,9,10) Stop: 12/07/23 18:25 Last Admin: 11/25/23 13:17 Dose: 4 mg Morphine Sulfate (Morphine Sulfate 2 Mg/Ml Carp) 2 mg IV Q3H PRN PRN Reason: Pain (1,2,3,4,5) & Pre PT Stop: 12/07/23 18:25 Last Admin: 11/26/23 23:33 Dose: 2 mg Multivitamins/Minerals (Cerovite Adv Formula Tab) 1 tab PO QAM [facility] Stop: 12/28/23 08:59 Last Admin: 11/28/23 07:39 Dose: 1 tab Ondansetron HCl (Ondansetron Inj 2 Mg/Ml 2 Ml Vial) 4 mg IV Q6H PRN PRN Reason: Nausea Stop: 12/23/23 18:25 Last Admin: 11/26/23 23:35 Dose: 4 mg Oxycodone/Acetaminophen (Oxycodone/Acetaminophen 5mg/325mg Tab) 1 tab PO Q4H PRN PRN Reason: Moderate Pain (Scale 4, 5, 6) Stop: 12/11/23 08:07 Oxycodone/Acetaminophen (Oxycodone/Acetaminophen 5mg/325mg Tab) 2 tab PO Q4H PRN PRN Reason: Severe Pain (Scale 7, 8, 9,10) Stop: 12/11/23 08:07 Potassium Chloride (Potassium Chloride Crtab 20 Meq Tabcr) 40 meq PO BID [facility] Stop: 12/28/23 08:59 Last Admin: 11/28/23 07:39 Dose: 40 meq Vitamin D (Cholecalciferol 25 Mcg (1000 Units) Tab) 25 mcg PO DAILY [facility] Stop: 12/28/23 08:59 Last Admin: 11/28/23 07:39 Dose: 25 mcg (5) HTN (hypertension) Hypertension type: essential hypertension Qualified Code(s): I10 - Essential (primary) hypertension
[2023-11-28] MEDS: oxyCODONE/ACETAMINOPHEN 5mg/325mg TAB PO PRN (09:49)
[2023-11-28] MEDS: POTASSIUM CHLORIDE / WTR 10 MEQ/100 ML PLCT IV ONE (09:49)
[2023-11-28] MEDS: MAGNESIUM SULFATE / D5W 1 GM/100 ML BAG IV ONE (09:49)
--- NOTE | 2023-11-28 12:55 | Surgery Progress Note ---
Date of Service November 28, 2023 Assessment & Plan (1) SBO (small bowel obstruction): (2) Incarcerated hernia: Plan POD#5 s/p exploratory laparotomy, small bowel resection, hernia repair +return of bowel function - minimal postop pain Will advance to low fiber diet. He is progressing from surgery standpoint, main concern at this time is his mobility and ability to work with PT/OT. Encourage out of bed to chair with nursing assist we will need to be aggressive with mobility, as he is very difficult to encourage to walk PT/OT consults DVT prophylaxis with SCD boots and Lovenox Aggressive pulmonary toilet with incentive spirometry will need rehab on discharge Discussed with Dr. Rubalcava who agrees with above. Admission and Anticipated Discharge Date Admission Date: November 23, 2023 Subjective no abdominal pain still having multiple loose bowel movements no nausea or vomiting having reflux/regurgitation worked with PT this am. Was able to stand up with the walker but not much more than than PT note today no in chart yet. at bedside, states he will go to rehab and is concerned about some of his home medications Physical Exam Constitutional: WD/WN, vitals as above + obese, cooperative and comfortable; no acute distress and not ill appearing Respiratory: normal respiratory effort; no respiratory distress, no labored breathing and no retractions Gastrointestinal (Abdomen): Inspection/Auscultation: abdomen normal to inspection, normal bowel sounds, + abdominal surgical incision (clean/dry/intact with da) and + abdominal surgical drain present (serosanguineous); abdomen not distended Percussion/Palpation: abdomen soft; abdomen nontender, no guarding and abdomen not rigid Skin: no rashes, warm and dry Psychiatric: Orientation: alert and oriented x 3 Results & Data Vital Signs (Past 12 Hours) Vital Signs Temp Pulse Pulse Resp BP BP Pulse Ox 11/28/23 11:54 36.4 C L 67 18 133/72 96 11/28/23 09:00 54 L 11/28/23 09:00 11/28/23 07:16 36.4 C L 67 17 177/80 H 95 11/28/23 04:34 36.5 C 63 18 158/75 H 95 O2 Del Method 11/28/23 11:54 Room Air 11/28/23 09:00 11/28/23 09:00 Room Air 11/28/23 07:16 Room Air 11/28/23 04:34 Room Air Laboratory Results 11/28/23 Range/Units 06:48 WBC 7.52 (4.8-10.8) K/ul RBC 3.74 L (4.70-6.10) M/uL Hgb 11.8 L (14.0-18.0) g/dl Hct 35.0 L (42.0-52.0) % MCV 93.6 (80.0-100.0) fL MCH 31.6 (25.0-34.0) pg MCHC 33.7 (32.0-36.0) g/dL RDW Std Deviation 46.4 H (36.4-46.3) fL RDW Coeff of Steven 13.4 (11.5-14.5) % Plt Count 269 (130-400) K/uL MPV 10.4 (9.4-12.4) fL Immature Gran % (Auto) 0.3 % Neut % (Auto) 69.6 % Lymph % (Auto) 16.5 % [place] % (Auto) 8.4 % Eos % (Auto) 4.8 % Baso % (Auto) 0.4 % Neut # (Auto) 5.24 (1.40-6.50) K/uL Lymph # (Auto) 1.24 (1.20-3.40) K/uL [place] # (Auto) 0.63 H (0.11-0.59) K/uL Eos # (Auto) 0.36 (0.00-0.50) K/uL Baso # (Auto) 0.03 (0.00-0.20) K/uL Immature Gran # (Auto) 0.02 (0.01-0.20) K/uL Sodium 136 (136-145) mmol/L Potassium 3.1 L (3.5-5.1) mmol/L Chloride 105 (98-107) mmol/L Carbon Dioxide 24 (21-32) mmol/L Anion Gap 7 (3-11) BUN 15 (6-23) mg/dl Creatinine 0.60 (0.6-1.4) mg/dl Est Cr Clr Drug Dosing 109.2 ml/min Est GFR ( Amer) 107.0 ml/min Est GFR (Non-Af Amer) 92.3 ml/min BUN/Creatinine Ratio 25.0 H (10-20) Glucose 86 (70-99(Fasting)) mg/dl Calcium 8.5 L (8.6-10.3) mg/dl Phosphorus 2.7 (2.5-4.9) mg/dl Magnesium 1.8 (1.7-2.4) mg/dl Total Bilirubin 0.5 (0.2-1.0) mg/dl AST 23 (13-39) U/L ALT 18 (7-52) U/L Alkaline Phosphatase 92 (34-104) U/L Total Protein 5.7 L (6.0-8.3) gm/dl Albumin 2.7 L (3.4-5.0) gm/dl Globulin 3.0 (2.5-4.0) gm/dl Albumin/Globulin Ratio 0.9 (0.9-2)
[2023-11-28] MEDS: FAMOTIDINE 20MG IV PUSH 20 MG/5 ML SYR IV STA (18:46)
[2023-11-29 08:29] LABS: Hematocrit (blood only) 36.7 % (42.0-52.0); Mean Corpuscular Hgb Conc 32.7 g/dL (32.0-36.0); Mean Corpuscular Volume 94.8 fL (80.0-100.0); Mean Platelet Volume 10.1 fL (9.4-12.4); Platelet Count 276 K/uL (130-400); RDW Coefficient of Variation 13.5 % (11.5-14.5); RDW Standard Deviation 47.2 fL (36.4-46.3); Red Blood Count 3.87 M/uL (4.70-6.10); White Blood Count 8.49 K/ul (4.8-10.8)
[2023-11-29 08:48] LABS: BUN Creatinine Ratio 17.5 (10-20); Calcium 8.3 mg/dl (8.6-10.3); Creatinine Clr Calc Pharmacy 115.1 ml/min; Est GFR (African American) 109.3 ml/min; Est GFR (Non-African American) 94.3 ml/min; Magnesium 1.6 mg/dl (1.7-2.4); Phosphorus 2.1 mg/dl (2.5-4.9); Potassium 3.3 mmol/L (3.5-5.1)
[2023-11-29] MEDS ORDERED: POTASSIUM PHOS 3 MMOL/1 ML INFUSION IV STA (09:46)
[2023-11-29] MEDS: POTASSIUM CHLORIDE / WTR 10 MEQ/100 ML PLCT IV ONE (10:01)
[2023-11-29] MEDS: POTASSIUM PHOSPHATE 9 MMOL in SODIUM CHLORIDE 0.9% 250 ML IV ONE (10:10)
[2023-11-29] MEDS: MAGNESIUM SULFATE / D5W 1 GM/100 ML BAG IV ONE (10:12)
--- NOTE | 2023-11-29 12:30 | Hospitalist Progress Note ---
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 SBO (small bowel obstruction) Incarcerated ventral hernia In ER T: 36.6 C, P: 89, R: 18, BP 133/59, 97% on room air WBC elevated at 14K on admission -> now normalized Blood Cx x [address] abd/pelvis concerning for SBO with incarcerated hernia General Surgery consulted, appreciate recs -s/p bowel resection and hernia repair on 11/22 with bowel resection of Meckel's diverticulum and ischemic portion of bowel -Activity of OOB with assistance into chair post/op Day 1. Nursing with difficulty getting pt up and into the chair. -Post op Day 5, PT/OT -> plan for rehab Pain Control, antiemetics Advance diet per surgery recs - advanced to low fiber Continue to monitor postop on telemetry Acute Blood loss anemia Hgb dropped from 14.4 to ~11 post op Continue to monitor with AM hgb Hgb has been stable Electrolyte Abnormalities Hypokalemia- K of 3.3 on admission, replete and monitor Hyponatremia-Hx of SIADH. Sodium of 135 on admission. currently wnl. Continue to monitor Hyperglycemia Prediabetes Glucose levels elevated A1c: 5.3 on 08/31/2023 Hold home metformin NovoLog sliding scale correction only for now Current Hgb A1c 5.3% Elevated liver enzymes T bili and alk phos levels elevated on admission Currently wnl - resolved Ketonuria Dehydration UA with noted ketones Suggestive of dehydration, likely in acute SBO/incarcerated hernia noted above Received IVF Cr wnl Continue to trend Cr with AM labs Cardiomegaly Known Hx for pt Cardiomegaly noted on abd/pelvis CT Hs-troponin wnl EKG noting sinus rhythm with frequent atrial ectopy. Echo -LV systolic function abnormal EF 60 to 65%. RV systolic function is norm al. Moderate valvular aortic stenosis. Aortic valve peak velocity of 3.2 m/s mean gradient of 20 mmHg. There is no pericardial effusion. Prostatomegaly Chronic bladder outlet obstruction Possible underlying mucosal lesion CT abd/pelvis noting "Marked prostatomegaly with evidence of chronic bladder outlet obstruction. There is asymmetric bladder wall thickening seen anteriorly on the left. Although this may be related to chronic outlet obstruction, an underlying mucosal lesion is not excluded. Follow up with urology is recommended for further assessment." UA unremarkable Urology follow up outpatient HTN Currently wnl Continue home PO metoprolol succinate Continue to monitor, resume home meds as soon as able Dyslipidemia resumed atorvastatin PAF (paroxysmal atrial fibrillation) Not on anticoagulation continue home PO metoprolol succinate Monitor on telemetry Leg edema History of chronic BLE edema On Lasix Currently appears euvolemic Lasix resumed on 11/26, pt previously on fluids while npo Holding Lasix moving forward, resume as able Diet: low fiber diet per Gen Surg DVT Prophylaxis: SCDs and Lovenox per Surgery Full Code as per discussion with patient Dispo: PT/OT -> plan for rehab Admission and Anticipated Discharge Date Admission Date: November 23, 2023 Subjective Pt seen in follow up of SBO, s/p ex-lap, incarcerated ventral hernia Currently laying in bed in NAD Reports no significant abdominal pain, has loose stools No fever, chills, chest pain, or shortness of breath Discussed with RN at the bedside Needs PT/OT -> plan [facility] care rehab on Sunday Per surgery - diet advanced to low fiber Review of Systems Review of Systems: All systems reviewed & are unremarkable except as noted in Subjective Physical Exam Physical Exam: General: obese, elderly M in NAD HEENT: NC/AT Chest: Nontender to palpation. CV: RRR, + murmur Resp: Breath sounds clear bilaterally, no increased effort of breathing. Abdomen: Soft, mildly tender to palp., + bowel sounds, dressings in place Extremities: minimal edema in lower extremities b/l, moves extremities Neuro: awake, alert, oriented, speech fluent, answers appropriately, moves extremities Skin: warm, dry Results & Data Results & Data Vital Signs (Past 12 Hours) Vital Signs Temp Pulse Pulse Resp BP Pulse Ox O2 Del Method 11/29/23 11:48 36.4 C L 75 17 137/77 97 Room Air 11/29/23 09:00 Room Air 11/29/23 08:43 72 11/29/23 07:22 36.6 C 75 17 164/69 H 95 Room Air 11/29/23 02:48 36.6 C 69 17 146/71 H 95 Room Air Laboratory Results 11/29/23 Range/Units 08:15 WBC 8.49 (4.8-10.8) K/ul RBC 3.87 L (4.70-6.10) M/uL Hgb 12.0 L (14.0-18.0) g/dl Hct 36.7 L (42.0-52.0) % MCV 94.8 (80.0-100.0) fL MCH 31.0 (25.0-34.0) pg MCHC 32.7 (32.0-36.0) g/dL RDW Std Deviation 47.2 H (36.4-46.3) fL RDW Coeff of Steven 13.5 (11.5-14.5) % Plt Count 276 (130-400) K/uL MPV 10.1 (9.4-12.4) fL Sodium 135 L (136-145) mmol/L Potassium 3.3 L (3.5-5.1) mmol/L Chloride 106 (98-107) mmol/L Carbon Dioxide 23 (21-32) mmol/L Anion Gap 6 (3-11) BUN 10 (6-23) mg/dl Creatinine 0.57 L (0.6-1.4) mg/dl Est Cr Clr Drug Dosing 115.1 ml/min Est GFR ( Amer) 109.3 ml/min Est GFR (Non-Af Amer) 94.3 ml/min BUN/Creatinine Ratio 17.5 (10-20) Glucose 109 H (70-99(Fasting)) mg/dl Calcium 8.3 L (8.6-10.3) mg/dl Phosphorus 2.1 L (2.5-4.9) mg/dl Magnesium 1.6 L (1.7-2.4) mg/dl Medications Administered Current Inpatient Medications Artificial Tears (Artificial Tears) 1 drops OP QAM [facility] Stop: 12/28/23 08:59 Last Admin: 11/29/23 08:52 Dose: 1 drops Atorvastatin Calcium (Atorvastatin 40 Mg Tab) 40 mg PO DAILY [facility] Stop: 12/28/23 08:59 Last Admin: 11/29/23 08:52 Dose: 40 mg Calcium Carbonate (Calcium Carbonate 500 Mg Chewable Tab) 500 mg PO Q6H PRN PRN Reason: Indigestion Stop: 12/27/23 06:41 Last Admin: 11/27/23 06:47 Dose: 500 mg Dextrose (Dextrose 50% 50 Ml Syringe) 25 - 50 ml IV UD PRN; Protocol PRN Reason: Hypoglycemia Protocol Stop: 12/23/23 18:25 Docusate Sodium (Docusate Sodium Syrup 100 Mg/10 Ml Udc) 50 mg PO DAILY [facility] Stop: 12/28/23 08:59 Last Admin: 11/28/23 10:56 Dose: Not Given Enoxaparin Sodium (Enoxaparin Inj 40 Mg/0.4 Ml Syr) 40 mg SQ QAM [facility] Stop: 12/24/23 08:59 Last Admin: 11/29/23 08:52 Dose: 40 mg Furosemide (Furosemide 40 Mg Tab) 40 mg PO [id number] [facility] Stop: 12/27/23 16:59 Last Admin: 11/27/23 17:10 Dose: 40 mg Gabapentin (Gabapentin 100 Mg Cap) 200 mg PO HS [facility] Stop: 12/27/23 20:59 Last Admin: 11/28/23 20:39 Dose: 200 mg Gabapentin (Gabapentin 100 Mg Cap) 100 mg PO DAILY [facility] Stop: 12/28/23 08:59 Last Admin: 11/29/23 08:51 Dose: 100 mg Glucagon (Glucagon For Inj 1 Mg Vial) 1 mg SQ UD PRN; Protocol PRN Reason: Hypoglycemia Protocol Stop: 12/23/23 18:25 Glucose (Glucose 10 Tab/Tube) 4 - 8 tab PO UD PRN; Protocol PRN Reason: Hypoglycemia Treatment Stop: 12/23/23 18:25 Glucose (Glucose 40% Gel 15 Gm Tube) 15 - 30 gm PO UD PRN; Protocol PRN Reason: Hypoglycemia Protocol Stop: 12/23/23 18:25 Potassium Phosphate 9 mmol/ (Sodium Chloride) 253 mls @ 88 mls/hr IV ONE ONE Stop: 11/29/23 12:52 Last Admin: 11/29/23 10:10 Dose: 88 mls/hr Famotidine (Pepcid 20mg Iv Push) 20 mg in 5 mls @ 2.5 mls/min IV Q12H [facility] Stop: 12/29/23 12:29 Ketorolac Tromethamine (Ketorolac 30 Mg/Ml Vial) 30 mg IV Q6H PRN PRN Reason: Pain Stop: 11/30/23 10:23 Last Admin: 11/26/23 19:46 Dose: 30 mg Magnesium Oxide (Magnesium Oxide 400 Mg Tab) 400 mg PO BID [facility] Stop: 12/27/23 20:59 Last Admin: 11/29/23 08:51 Dose: 400 mg Metoprolol Succinate (Metoprolol Succ 50mg Ext Rel Tab) 50 mg PO BID [facility] Stop: 12/27/23 20:59 Last Admin: 11/29/23 08:52 Dose: 50 mg Miscellaneous (Carbohydrates For Hypoglycemia ) 15 - 30 gm PO UD PRN PRN Reason: Hypoglycemia Protocol Stop: 12/23/23 18:25 Morphine Sulfate (Morphine Sulfate 4 Mg/Ml 1 Ml Carp\\Vial) 4 mg IV Q3H PRN PRN Reason: Pain (6,7,8,9,10) Stop: 12/07/23 18:25 Last Admin: 11/25/23 13:17 Dose: 4 mg Morphine Sulfate (Morphine Sulfate 2 Mg/Ml Carp) 2 mg IV Q3H PRN PRN Reason: Pain (1,2,3,4,5) & Pre PT Stop: 12/07/23 18:25 Last Admin: 11/26/23 23:33 Dose: 2 mg Multivitamins/Minerals (Cerovite Adv Formula Tab) 1 tab PO QAM [facility] Stop: 12/28/23 08:59 Last Admin: 11/29/23 08:52 Dose: 1 tab Ondansetron HCl (Ondansetron Inj 2 Mg/Ml 2 Ml Vial) 4 mg IV Q6H PRN PRN Reason: Nausea Stop: 12/23/23 18:25 Last Admin: 11/26/23 23:35 Dose: 4 mg Oxycodone/Acetaminophen (Oxycodone/Acetaminophen 5mg/325mg Tab) 1 tab PO Q4H PRN PRN Reason: Moderate Pain (Scale 4, 5, 6) Stop: 12/11/23 08:07 Last Admin: 11/28/23 09:49 Dose: 1 tab Oxycodone/Acetaminophen (Oxycodone/Acetaminophen 5mg/325mg Tab) 2 tab PO Q4H PRN PRN Reason: Severe Pain (Scale 7, 8, 9,10) Stop: 12/11/23 08:07 Potassium Chloride (Potassium Chloride Crtab 20 Meq Tabcr) 40 meq PO BID [facility] Stop: 12/28/23 08:59 Last Admin: 11/29/23 08:51 Dose: 40 meq Vitamin D (Cholecalciferol 25 Mcg (1000 Units) Tab) 25 mcg PO DAILY [facility] Stop: 12/28/23 08:59 Last Admin: 11/29/23 08:52 Dose: 25 mcg (5) HTN (hypertension) Hypertension type: essential hypertension Qualified Code(s): I10 - Essential (primary) hypertension
[2023-11-29] MEDS: FAMOTIDINE 20MG IV PUSH 20 MG/5 ML SYR IV SCH (13:35)
--- NOTE | 2023-11-29 14:54 | Surgery Progress Note ---
Date of Service November 29, 2023 Assessment & Plan (1) SBO (small bowel obstruction): (2) Incarcerated hernia: Plan POD#6 s/p exploratory laparotomy, small bowel resection, hernia repair +return of bowel function - minimal postop pain Continue low fiber diet. He is progressing from surgery standpoint, main concern at this time is his mobility and ability to work with PT/OT. Continue to be aggressive with mobility, as he is very difficult to encourage to walk PT/OT consults DVT prophylaxis with SCD boots and Lovenox Aggressive pulmonary toilet with incentive spirometry will need rehab on discharge Admission and Anticipated Discharge Date Admission Date: November 23, 2023 Subjective Feeling well. Continuing to have bowel movements. No fevers or chills. Minimal abdominal pain Physical Exam Physical Exam: AFVSS NAD, A&O x 3 Abdomen: Soft, mild TTP Incision C/D/I HOLLIE with minimal serosanguineous output Binder in place Results & Data Vital Signs (Past 12 Hours) Vital Signs Temp Pulse Pulse Pulse Resp BP Pulse Ox 11/29/23 14:29 36.4 C L 70 16 151/84 H 96 11/29/23 11:48 36.4 C L 75 17 137/77 97 11/29/23 09:00 11/29/23 08:43 72 11/29/23 07:22 36.6 C 75 17 164/69 H 95 O2 Del Method 11/29/23 14:29 Room Air 11/29/23 11:48 Room Air 11/29/23 09:00 Room Air 11/29/23 08:43 11/29/23 07:22 Room Air
[2023-11-30 06:32] LABS: BUN Creatinine Ratio 11.3 (10-20); Calcium 8.4 mg/dl (8.6-10.3); Creatinine Clr Calc Pharmacy 123.7 ml/min; Est GFR (African American) 112.6 ml/min; Est GFR (Non-African American) 97.2 ml/min; Magnesium 1.8 mg/dl (1.7-2.4); Phosphorus 2.8 mg/dl (2.5-4.9); Potassium 3.2 mmol/L (3.5-5.1)
[2023-11-30] MEDS ORDERED: POTASSIUM PHOS 3 MMOL/1 ML INFUSION IV STA (07:33)
--- NOTE | 2023-11-30 07:42 | Hospitalist Progress Note ---
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 SBO (small bowel obstruction) Incarcerated ventral hernia In ER T: 36.6 C, P: 89, R: 18, BP 133/59, 97% on room air WBC elevated at 14K on admission -> now normalized Blood Cx x [address] abd/pelvis concerning for SBO with incarcerated hernia General Surgery consulted, appreciate recs -s/p bowel resection and hernia repair on 11/22 with bowel resection of Meckel's diverticulum and ischemic portion of bowel -Activity of OOB with assistance into chair post/op Day 1. Nursing with difficulty getting pt up and into the chair. -Post op Day 5, PT/OT -> plan for rehab Pain Control, antiemetics Advance diet per surgery recs - advanced to low fiber Continue to monitor postop on telemetry Acute Blood loss anemia Hgb dropped from 14.4 to ~11 post op Continue to monitor with AM hgb Hgb has been stable Electrolyte Abnormalities Hypokalemia- K of 3.3 on admission, replete and monitor Hyponatremia-Hx of SIADH. Sodium of 135 on admission. currently wnl. Continue to monitor Hyperglycemia Prediabetes Glucose levels elevated A1c: 5.3 on 08/31/2023 Hold home metformin NovoLog sliding scale correction only for now Current Hgb A1c 5.3% Elevated liver enzymes T bili and alk phos levels elevated on admission Currently wnl - resolved Ketonuria Dehydration UA with noted ketones Suggestive of dehydration, likely in acute SBO/incarcerated hernia noted above Received IVF Cr wnl Continue to trend Cr with AM labs Cardiomegaly Known Hx for pt Cardiomegaly noted on abd/pelvis CT Hs-troponin wnl EKG noting sinus rhythm with frequent atrial ectopy. Echo -LV systolic function abnormal EF 60 to 65%. RV systolic function is norm al. Moderate valvular aortic stenosis. Aortic valve peak velocity of 3.2 m/s mean gradient of 20 mmHg. There is no pericardial effusion. Prostatomegaly Chronic bladder outlet obstruction Possible underlying mucosal lesion CT abd/pelvis noting "Marked prostatomegaly with evidence of chronic bladder outlet obstruction. There is asymmetric bladder wall thickening seen anteriorly on the left. Although this may be related to chronic outlet obstruction, an underlying mucosal lesion is not excluded. Follow up with urology is recommended for further assessment." UA unremarkable Urology follow up outpatient HTN Currently wnl Continue home PO metoprolol succinate Continue to monitor, resume home meds as soon as able Dyslipidemia resumed atorvastatin PAF (paroxysmal atrial fibrillation) Not on anticoagulation continue home PO metoprolol succinate Monitor on telemetry Leg edema History of chronic BLE edema On Lasix Currently appears euvolemic Lasix resumed on 11/26, pt previously on fluids while npo Holding Lasix moving forward, resume as able Diet: low fiber diet per Gen Surg DVT Prophylaxis: SCDs and Lovenox per Surgery Full Code as per discussion with patient Dispo: PT/OT -> plan for rehab Admission and Anticipated Discharge Date Admission Date: November 23, 2023 Subjective Pt seen in follow up of SBO, s/p ex-lap, incarcerated ventral hernia Currently laying in bed in NAD Reports no significant abdominal pain, has loose stools but improving today. c. diff negative No fever, chills, chest pain, or shortness of breath Discussed with RN at the bedside Needs PT/OT -> plan [facility] Sunday Per surgery - diet advanced to low fiber Hypokalemia - still needing robust K replacement Review of Systems Review of Systems: All systems reviewed & are unremarkable except as noted in Subjective Physical Exam Physical Exam: General: obese, elderly M in NAD HEENT: NC/AT Chest: Nontender to palpation. CV: RRR, + murmur Resp: Breath sounds clear bilaterally, no increased effort of breathing. Abdomen: Soft, mildly tender to palp., + bowel sounds, dressings in place Extremities: minimal edema in lower extremities b/l, moves extremities Neuro: awake, alert, oriented, speech fluent, answers appropriately, moves extremities Skin: warm, dry Results & Data Results & Data Vital Signs (Past 12 Hours) Vital Signs Temp Pulse Resp BP BP Pulse Ox O2 Del Method 11/30/23 07:15 36.3 C L 72 16 147/73 H 94 Room Air 11/29/23 20:15 Room Air 11/29/23 20:00 36.7 C 74 18 139/66 95 Room Air Laboratory Results 11/30/23 11/29/23 11/29/23 Range/Units 05:45 15:17 08:15 WBC 8.49 (4.8-10.8) K/ul RBC 3.87 L (4.70-6.10) M/uL Hgb 12.0 L (14.0-18.0) g/dl Hct 36.7 L (42.0-52.0) % MCV 94.8 (80.0-100.0) fL MCH 31.0 (25.0-34.0) pg MCHC 32.7 (32.0-36.0) g/dL RDW Std Deviation 47.2 H (36.4-46.3) fL RDW Coeff of Steven 13.5 (11.5-14.5) % Plt Count 276 (130-400) K/uL MPV 10.1 (9.4-12.4) fL Sodium 136 135 L (136-145) mmol/L Potassium 3.2 L 3.3 L (3.5-5.1) mmol/L Chloride 108 H 106 (98-107) mmol/L Carbon Dioxide 22 23 (21-32) mmol/L Anion Gap 6 6 (3-11) BUN 6 10 (6-23) mg/dl Creatinine 0.53 L 0.57 L (0.6-1.4) mg/dl Est Cr Clr Drug Dosing 123.7 115.1 ml/min Est GFR ( Amer) 112.6 109.3 ml/min Est GFR (Non-Af Amer) 97.2 94.3 ml/min BUN/Creatinine Ratio 11.3 17.5 (10-20) Glucose 93 109 H (70-99(Fasting)) mg/dl Calcium 8.4 L 8.3 L (8.6-10.3) mg/dl Phosphorus 2.8 2.1 L (2.5-4.9) mg/dl Magnesium 1.8 1.6 L (1.7-2.4) mg/dl Stl C. diff Tox B Gene Negative Cdiff Gene (Neg) Medications Administered Current Inpatient Medications Artificial Tears (Artificial Tears) 1 drops OP QAM [facility] Stop: 12/28/23 08:59 Last Admin: 11/29/23 08:52 Dose: 1 drops Atorvastatin Calcium (Atorvastatin 40 Mg Tab) 40 mg PO DAILY [facility] Stop: 12/28/23 08:59 Last Admin: 11/29/23 08:52 Dose: 40 mg Calcium Carbonate (Calcium Carbonate 500 Mg Chewable Tab) 500 mg PO Q6H PRN PRN Reason: Indigestion Stop: 12/27/23 06:41 Last Admin: 11/27/23 06:47 Dose: 500 mg Dextrose (Dextrose 50% 50 Ml Syringe) 25 - 50 ml IV UD PRN; Protocol PRN Reason: Hypoglycemia Protocol Stop: 12/23/23 18:25 Docusate Sodium (Docusate Sodium Syrup 100 Mg/10 Ml Udc) 50 mg PO DAILY [facility] Stop: 12/28/23 08:59 Last Admin: 11/28/23 10:56 Dose: Not Given Enoxaparin Sodium (Enoxaparin Inj 40 Mg/0.4 Ml Syr) 40 mg SQ QAM [facility] Stop: 12/24/23 08:59 Last Admin: 11/29/23 08:52 Dose: 40 mg Furosemide (Furosemide 40 Mg Tab) 40 mg PO BID17 [facility] Stop: 12/27/23 16:59 Last Admin: 11/27/23 17:10 Dose: 40 mg Gabapentin (Gabapentin 100 Mg Cap) 200 mg PO HS [facility] Stop: 12/27/23 20:59 Last Admin: 11/29/23 20:07 Dose: 200 mg Gabapentin (Gabapentin 100 Mg Cap) 100 mg PO DAILY [facility] Stop: 12/28/23 08:59 Last Admin: 11/29/23 08:51 Dose: 100 mg Glucagon (Glucagon For Inj 1 Mg Vial) 1 mg SQ UD PRN; Protocol PRN Reason: Hypoglycemia Protocol Stop: 12/23/23 18:25 Glucose (Glucose 10 Tab/Tube) 4 - 8 tab PO UD PRN; Protocol PRN Reason: Hypoglycemia Treatment Stop: 12/23/23 18:25 Glucose (Glucose 40% Gel 15 Gm Tube) 15 - 30 gm PO UD PRN; Protocol PRN Reason: Hypoglycemia Protocol Stop: 12/23/23 18:25 Famotidine (Pepcid 20mg Iv Push) 20 mg in 5 mls @ 2.5 mls/min IV Q12H [facility] Stop: 12/29/23 13:14 Last Admin: 11/30/23 00:46 Dose: 2.5 mls/min Potassium Phosphate 9 mmol/ (Sodium Chloride) 253 mls @ 169 mls/hr IV TODAY@0800 ONE Stop: 11/30/23 09:29 Ketorolac Tromethamine (Ketorolac 30 Mg/Ml Vial) 30 mg IV Q6H PRN PRN Reason: Pain Stop: 11/30/23 10:23 Last Admin: 11/26/23 19:46 Dose: 30 mg Magnesium Oxide (Magnesium Oxide 400 Mg Tab) 400 mg PO BID [facility] Stop: 12/27/23 20:59 Last Admin: 11/29/23 20:07 Dose: 400 mg Metoprolol Succinate (Metoprolol Succ 50mg Ext Rel Tab) 50 mg PO BID [facility] Stop: 12/27/23 20:59 Last Admin: 11/29/23 20:07 Dose: 50 mg Miscellaneous (Carbohydrates For Hypoglycemia ) 15 - 30 gm PO UD PRN PRN Reason: Hypoglycemia Protocol Stop: 12/23/23 18:25 Morphine Sulfate (Morphine Sulfate 4 Mg/Ml 1 Ml Carp\\Vial) 4 mg IV Q3H PRN PRN Reason: Pain (6,7,8,9,10) Stop: 12/07/23 18:25 Last Admin: 11/25/23 13:17 Dose: 4 mg Morphine Sulfate (Morphine Sulfate 2 Mg/Ml Carp) 2 mg IV Q3H PRN PRN Reason: Pain (1,2,3,4,5) & Pre PT Stop: 12/07/23 18:25 Last Admin: 11/26/23 23:33 Dose: 2 mg Multivitamins/Minerals (Cerovite Adv Formula Tab) 1 tab PO QAM [facility] Stop: 12/28/23 08:59 Last Admin: 11/29/23 08:52 Dose: 1 tab Ondansetron HCl (Ondansetron Inj 2 Mg/Ml 2 Ml Vial) 4 mg IV Q6H PRN PRN Reason: Nausea Stop: 12/23/23 18:25 Last Admin: 11/26/23 23:35 Dose: 4 mg Oxycodone/Acetaminophen (Oxycodone/Acetaminophen 5mg/325mg Tab) 1 tab PO Q4H PRN PRN Reason: Moderate Pain (Scale 4, 5, 6) Stop: 12/11/23 08:07 Last Admin: 11/28/23 09:49 Dose: 1 tab Oxycodone/Acetaminophen (Oxycodone/Acetaminophen 5mg/325mg Tab) 2 tab PO Q4H PRN PRN Reason: Severe Pain (Scale 7, 8, 9,10) Stop: 12/11/23 08:07 Potassium Chloride (Potassium Chloride Crtab 20 Meq Tabcr) 40 meq PO TID [facility] Stop: 12/30/23 08:59 Potassium Phosphate (Potassium Phos 3 Mmol/1 Ml Infusion) 9 mmol IV NOW STA Stop: 11/30/23 07:34 Vitamin D (Cholecalciferol 25 Mcg (1000 Units) Tab) 25 mcg PO DAILY [facility] Stop: 12/28/23 08:59 Last Admin: 11/29/23 08:52 Dose: 25 mcg (5) HTN (hypertension) Hypertension type: essential hypertension Qualified Code(s): I10 - Essential (primary) hypertension
[2023-11-30] MEDS: POTASSIUM CHLORIDE CRTAB 20 MEQ TABCR PO SCH (08:40)
[2023-11-30] MEDS: POTASSIUM PHOSPHATE 9 MMOL in SODIUM CHLORIDE 0.9% 250 ML IV ONE (08:40)
--- NOTE | 2023-11-30 12:54 | Surgery Progress Note ---
Date of Service November 30, 2023 Assessment & Plan (1) SBO (small bowel obstruction): (2) Incarcerated hernia: Plan POD#7 s/p exploratory laparotomy, small bowel resection, hernia repair +return of bowel function - no postop pain - c.diff negative Continue low fiber diet. He is progressing from surgery standpoint, main concern at this time is his mobility and ability to work with PT/OT. Okay from surgical standpoint for discharge to rehab per PT/OT recommendations will remove rusty drain likely today DVT prophylaxis with SCD boots and Lovenox Admission and Anticipated Discharge Date Admission Date: November 23, 2023 Subjective feeling good, no abdominal pain bowel movements this morning seems to be less watery no n,v tolerated diet anxious about drain Physical Exam Constitutional: WD/WN, vitals as above + obese, cooperative and comfortable; no acute distress and not ill appearing Gastrointestinal (Abdomen): Inspection/Auscultation: abdomen normal to inspection, + abdominal surgical incision (c/d/i with da) and + abdominal surgical drain present (minimal serosanguineous); abdomen not distended Percussion/Palpation: abdomen soft; abdomen nontender, no guarding and abdomen not rigid Psychiatric: Orientation: alert and oriented x 3 Results & Data Vital Signs (Past 12 Hours) Vital Signs Temp Pulse Resp BP Pulse Ox O2 Del Method 11/30/23 07:40 Room Air 11/30/23 07:15 36.3 C L 72 16 147/73 H 94 Room Air Laboratory Results 11/30/23 11/29/23 Range/Units 05:45 15:17 Sodium 136 (136-145) mmol/L Potassium 3.2 L (3.5-5.1) mmol/L Chloride 108 H (98-107) mmol/L Carbon Dioxide 22 (21-32) mmol/L Anion Gap 6 (3-11) BUN 6 (6-23) mg/dl Creatinine 0.53 L (0.6-1.4) mg/dl Est Cr Clr Drug Dosing 123.7 ml/min Est GFR ( Amer) 112.6 ml/min Est GFR (Non-Af Amer) 97.2 ml/min BUN/Creatinine Ratio 11.3 (10-20) Glucose 93 (70-99(Fasting)) mg/dl Calcium 8.4 L (8.6-10.3) mg/dl Phosphorus 2.8 (2.5-4.9) mg/dl Magnesium 1.8 (1.7-2.4) mg/dl Stl C. diff Tox B Gene Negative Cdiff Gene (Neg)
[2023-11-30] MEDS: POTASSIUM CHLORIDE 20 MEQ/15 ML UDC PO SCH (21:03)
[2023-12-01] MEDS: LOPERAMIDE HCL 2 MG CAP PO STA (04:20)
--- NOTE | 2023-12-01 05:14 | Surgery Progress Note ---
Date of Service December 01, 2023 Assessment & Plan (1) SBO (small bowel obstruction): Plan: Patient is status post exploratory laparotomy with small bowel resection on 11/23/2023 (postop day #8) Continue analgesics as needed Continue antiemetics as needed Continue diet as tolerated Check a.m. labs when available Due to liquid stools patient has had a C. difficile sent which was noted to be negative on 11/29/2023; if liquid stools persist consideration can be given to repeating an additional stool study for C. difficile Patient's primary surgical team felt he was suitable for discharge from surgery perspective and is currently awaiting rehab placement Lovenox is in place for DVT prevention Admission and Anticipated Discharge Date Admission Date: November 23, 2023 Supervising Physician Co-Signing Physician Notes I have seen and examined the patient. I agree with the above assessment. The patient is is without complaints and has bowel function. Specifically denies abdominal pain, nausea or vomiting. Abdominal incision is intact with da, clean/dry. There is no abdominal distention and the incision appears without evidence for infection. Labs were drawn this a.m. with a slight out of range WBC, and significant based on the clinical picture and exam. Patient afebrile without concerning signs or symptoms. Chemistry is stable compared to previous lab draw. He is awaiting rehab placement. We will follow-up in the a.m. Subjective Patient is resting comfortably in bed. He notes his pain is well-controlled. He is tolerating a diet. He denies any fevers, shakes, or chills. He denies any shortness of breath. I discussed with nursing staff and patient had multiple liquid bowel movements over the past shift. Physical Exam Gastrointestinal (Abdomen): Abdomen is soft and nondistended. There is minimal pain with palpation. Surgical incision is clean, dry, and intact. Results & Data Vital Signs (Past 12 Hours) Vital Signs Temp Pulse Resp BP Pulse Ox O2 Del Method 11/30/23 20:45 Room Air 11/30/23 20:42 36.8 C 75 20 132/69 96 Room Air PG Care Time/CCT Total # of Minutes Spent Total Time Spent with Patient: Total time spent is greater than 50% in coordination of care (as documented) at patient's floor/unit and/or counseling patient: Coding Level of Care Code 20890 Post Operative Follow-Up Diagnoses SBO (small bowel obstruction) K56.605
[2023-12-01 05:55] LABS: Hematocrit (blood only) 33.5 % (42.0-52.0); Hemoglobin 11.1 g/dl (14.0-18.0); Mean Corpuscular Hemoglobin 31.2 pg (25.0-34.0); Mean Corpuscular Hgb Conc 33.1 g/dL (32.0-36.0); Mean Corpuscular Volume 94.1 fL (80.0-100.0); Mean Platelet Volume 10.2 fL (9.4-12.4); Platelet Count 267 K/uL (130-400); RDW Coefficient of Variation 13.7 % (11.5-14.5); RDW Standard Deviation 46.8 fL (36.4-46.3); Red Blood Count 3.56 M/uL (4.70-6.10); White Blood Count 10.91 K/ul (4.8-10.8)
[2023-12-01 06:15] LABS: BUN Creatinine Ratio 9.3 (10-20); Calcium 8.5 mg/dl (8.6-10.3); Creatinine Clr Calc Pharmacy 121.4 ml/min; Est GFR (African American) 111.7 ml/min; Est GFR (Non-African American) 96.4 ml/min; Magnesium 1.7 mg/dl (1.7-2.4); Phosphorus 2.3 mg/dl (2.5-4.9); Potassium 4.2 mmol/L (3.5-5.1)
--- NOTE | 2023-12-01 07:58 | Hospitalist Progress Note ---
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 SBO (small bowel obstruction) Incarcerated ventral hernia In ER T: 36.6 C, P: 89, R: 18, BP 133/59, 97% on room air WBC elevated at 14K on admission -> now normalized Blood Cx x [address] abd/pelvis concerning for SBO with incarcerated hernia General Surgery consulted, appreciate recs -s/p bowel resection and hernia repair on 11/22 with bowel resection of Meckel's diverticulum and ischemic portion of bowel -Activity of OOB with assistance. Nursing with difficulty getting pt up and into the chair. -PT/OT -> plan for rehab Pain Control, antiemetics Advance diet per surgery recs - advanced to low fiber Acute Blood loss anemia Hgb dropped from 14.4 to ~11 post op Continue to monitor with AM hgb Hgb has been stable Electrolyte Abnormalities Hypokalemia- K of 3.3 on admission, replete and monitor Hyponatremia-Hx of SIADH. Sodium of 135 on admission. currently wnl. Continue to monitor Hyperglycemia Prediabetes Glucose levels elevated A1c: 5.3 on 08/31/2023 Hold home metformin NovoLog sliding scale correction only for now Current Hgb A1c 5.3% Elevated liver enzymes T bili and alk phos levels elevated on admission Currently wnl - resolved Ketonuria Dehydration UA with noted ketones Suggestive of dehydration, likely in acute SBO/incarcerated hernia noted above Received IVF Cr wnl Continue to trend Cr with AM labs Cardiomegaly Known Hx for pt Cardiomegaly noted on abd/pelvis CT Hs-troponin wnl EKG noting sinus rhythm with frequent atrial ectopy. Echo -LV systolic function abnormal EF 60 to 65%. RV systolic function is normal. Moderate valvular aortic stenosis. Aortic valve peak velocity of 3.2 m/s mean gradient of 20 mmHg. There is no pericardial effusion. Prostatomegaly Chronic bladder outlet obstruction Possible underlying mucosal lesion CT abd/pelvis noting "Marked prostatomegaly with evidence of chronic bladder outlet obstruction. There is asymmetric bladder wall thickening seen anteriorly on the left. Although this may be related to chronic outlet obstruction, an underlying mucosal lesion is not excluded. Follow up with urology is recommended for further assessment." UA unremarkable Urology follow up outpatient HTN Currently wnl Continue home PO metoprolol succinate Continue to monitor, resume home meds as soon as able Dyslipidemia resumed atorvastatin PAF (paroxysmal atrial fibrillation) Not on anticoagulation continue home PO metoprolol succinate Monitor on telemetry Leg edema History of chronic BLE edema On Lasix Currently appears euvolemic Lasix resumed on 11/26, pt previously on fluids while npo Holding Lasix moving forward, resume as able Diet: low fiber diet per Gen Surg DVT Prophylaxis: SCDs and Lovenox per Surgery Full Code as per discussion with patient Dispo: PT/OT -> plan for rehab Admission and Anticipated Discharge Date Admission Date: November 23, 2023 Subjective Pt seen in follow up of SBO, s/p ex-lap, incarcerated ventral hernia Currently laying in bed in [facility] Reports no significant abdominal pain, has loose stools. c. diff negative, will repeat the test No fever, chills, chest pain, or shortness of breath Needs PT/OT -> plan [facility] on Sunday Per surgery - diet advanced to low fiber Hypokalemia - now much improved Review of Systems Review of Systems: All systems reviewed & are unremarkable except as noted in Subjective Physical Exam Physical Exam: General: obese, elderly M in NAD HEENT: NC/AT Chest: Nontender to palpation. CV: RRR, + murmur Resp: Breath sounds clear bilaterally, no increased effort of breathing. Abdomen: Soft, mildly tender to palp., + bowel sounds, dressings in place Extremities: minimal edema in lower extremities b/l, moves extremities Neuro: awake, alert, oriented, speech fluent, answers appropriately, moves extremities Skin: warm, dry Results & Data Results & Data Vital Signs (Past 12 Hours) Vital Signs Temp Pulse Resp BP Pulse Ox O2 Del Method 12/01/23 07:26 36.9 C 74 16 121/67 96 Room Air 11/30/23 20:45 Room Air 11/30/23 20:42 36.8 C 75 20 132/69 96 Room Air Laboratory Results 12/01/23 Range/Units 05:37 WBC 10.91 H (4.8-10.8) K/ul RBC 3.56 L (4.70-6.10) M/uL Hgb 11.1 L (14.0-18.0) g/dl Hct 33.5 L (42.0-52.0) % MCV 94.1 (80.0-100.0) fL MCH 31.2 (25.0-34.0) pg MCHC 33.1 (32.0-36.0) g/dL RDW Std Deviation 46.8 H (36.4-46.3) fL RDW Coeff of Steven 13.7 (11.5-14.5) % Plt Count 267 (130-400) K/uL MPV 10.2 (9.4-12.4) fL Sodium 136 (136-145) mmol/L Potassium 4.2 D (3.5-5.1) mmol/L Chloride 108 H (98-107) mmol/L Carbon Dioxide 23 (21-32) mmol/L Anion Gap 5 (3-11) BUN 5 L (6-23) mg/dl Creatinine 0.54 L (0.6-1.4) mg/dl Est Cr Clr Drug Dosing 121.4 ml/min Est GFR ( Amer) 111.7 ml/min Est GFR (Non-Af Amer) 96.4 ml/min BUN/Creatinine Ratio 9.3 L (10-20) Glucose 95 (70-99(Fasting)) mg/dl Calcium 8.5 L (8.6-10.3) mg/dl Phosphorus 2.3 L (2.5-4.9) mg/dl Magnesium 1.7 (1.7-2.4) mg/dl Medications Administered Current Inpatient Medications Artificial Tears (Artificial Tears) 1 drops OP QAM [facility] Stop: 12/28/23 08:59 Last Admin: 11/30/23 08:41 Dose: 1 drops Atorvastatin Calcium (Atorvastatin 40 Mg Tab) 40 mg PO DAILY [facility] Stop: 12/28/23 08:59 Last Admin: 11/30/23 08:40 Dose: 40 mg Calcium Carbonate (Calcium Carbonate 500 Mg Chewable Tab) 500 mg PO Q6H PRN PRN Reason: Indigestion Stop: 12/27/23 06:41 Last Admin: 11/27/23 06:47 Dose: 500 mg Dextrose (Dextrose 50% 50 Ml Syringe) 25 - 50 ml IV UD PRN; Protocol PRN Reason: Hypoglycemia Protocol Stop: 12/23/23 18:25 Docusate Sodium (Docusate Sodium Syrup 100 Mg/10 Ml Udc) 50 mg PO DAILY [facility] Stop: 12/28/23 08:59 Last Admin: 11/28/23 10:56 Dose: Not Given Enoxaparin Sodium (Enoxaparin Inj 40 Mg/0.4 Ml Syr) 40 mg SQ QAM [facility] Stop: 12/24/23 08:59 Last Admin: 11/30/23 08:40 Dose: 40 mg Furosemide (Furosemide 40 Mg Tab) 40 mg PO [id number] [facility] Stop: 12/27/23 16:59 Last Admin: 11/27/23 17:10 Dose: 40 mg Gabapentin (Gabapentin 100 Mg Cap) 200 mg PO HS [facility] Stop: 12/27/23 20:59 Last Admin: 11/30/23 20:44 Dose: 200 mg Gabapentin (Gabapentin 100 Mg Cap) 100 mg PO DAILY [facility] Stop: 12/28/23 08:59 Last Admin: 11/30/23 08:40 Dose: 100 mg Glucagon (Glucagon For Inj 1 Mg Vial) 1 mg SQ UD PRN; Protocol PRN Reason: Hypoglycemia Protocol Stop: 12/23/23 18:25 Glucose (Glucose 10 Tab/Tube) 4 - 8 tab PO UD PRN; Protocol PRN Reason: Hypoglycemia Treatment Stop: 12/23/23 18:25 Glucose (Glucose 40% Gel 15 Gm Tube) 15 - 30 gm PO UD PRN; Protocol PRN Reason: Hypoglycemia Protocol Stop: 12/23/23 18:25 Famotidine (Pepcid 20mg Iv Push) 20 mg in 5 mls @ 2.5 mls/min IV Q12H [facility] Stop: 12/29/23 13:14 Last Admin: 12/01/23 00:27 Dose: 2.5 mls/min Magnesium Sulfate/Dextrose (Magnesium Sulfate / D5w) 1 gm in 100 mls @ 50 mls/hr IV ONE ONE Stop: 12/01/23 09:54 Metoprolol Succinate (Metoprolol Succ 50mg Ext Rel Tab) 50 mg PO BID [facility] Stop: 12/27/23 20:59 Last Admin: 11/30/23 20:44 Dose: 50 mg Miscellaneous (Carbohydrates For Hypoglycemia ) 15 - 30 gm PO UD PRN PRN Reason: Hypoglycemia Protocol Stop: 12/23/23 18:25 Morphine Sulfate (Morphine Sulfate 4 Mg/Ml 1 Ml Carp\\Vial) 4 mg IV Q3H PRN PRN Reason: Pain (6,7,8,9,10) Stop: 12/07/23 18:25 Last Admin: 11/25/23 13:17 Dose: 4 mg Morphine Sulfate (Morphine Sulfate 2 Mg/Ml Carp) 2 mg IV Q3H PRN PRN Reason: Pain (1,2,3,4,5) & Pre PT Stop: 12/07/23 18:25 Last Admin: 11/26/23 23:33 Dose: 2 mg Multivitamins/Minerals (Cerovite Adv Formula Tab) 1 tab PO QAM [facility] Stop: 12/28/23 08:59 Last Admin: 11/30/23 08:40 Dose: 1 tab Ondansetron HCl (Ondansetron Inj 2 Mg/Ml 2 Ml Vial) 4 mg IV Q6H PRN PRN Reason: Nausea Stop: 12/23/23 18:25 Last Admin: 11/26/23 23:35 Dose: 4 mg Oxycodone/Acetaminophen (Oxycodone/Acetaminophen 5mg/325mg Tab) 1 tab PO Q4H PRN PRN Reason: Moderate Pain (Scale 4, 5, 6) Stop: 12/11/23 08:07 Last Admin: 11/28/23 09:49 Dose: 1 tab Oxycodone/Acetaminophen (Oxycodone/Acetaminophen 5mg/325mg Tab) 2 tab PO Q4H PRN PRN Reason: Severe Pain (Scale 7, 8, 9,10) Stop: 12/11/23 08:07 Potassium Chloride (Potassium Chloride 20 Meq/15 Ml Udc) 40 meq PO TID [facility] Stop: 12/30/23 20:59 Last Admin: 11/30/23 21:03 Dose: 40 meq Vitamin D (Cholecalciferol 25 Mcg (1000 Units) Tab) 25 mcg PO DAILY [facility] Stop: 12/28/23 08:59 Last Admin: 11/30/23 08:41 Dose: 25 mcg (5) HTN (hypertension) Hypertension type: essential hypertension Qualified Code(s): I10 - Essential (primary) hypertension
[2023-12-01] MEDS: MAGNESIUM SULFATE / D5W 1 GM/100 ML BAG IV ONE (08:38)
--- NOTE | 2023-12-02 05:31 | Surgery Progress Note ---
Date of Service December 02, 2023 Assessment & Plan (1) SBO (small bowel obstruction): Plan: Patient is status post exploratory laparotomy with small bowel resection on 11/23/2023 (postop day #9) Continue analgesics as needed Continue antiemetics as needed Continue diet as tolerated Due to liquid stools patient has had a C. difficile sent which was noted to be negative on 11/29/2023 Patient is currently awaiting rehab placement Lovenox is in place for DVT prevention Admission and Anticipated Discharge Date Admission Date: November 23, 2023 Supervising Physician Co-Signing Physician Notes I have seen and examined the patient. I agree with the above assessment. The patient is is without complaints and has bowel function. Specifically denies abdominal pain, nausea or vomiting. Abdominal incision is intact with da, clean/dry. There is no abdominal distention and the incision appears without evidence for infection. He is awaiting rehab placement, staple removal will be planned with his primary surgical team. His primary surgical team will follow-up in the a.m. Subjective Patient is resting comfortably in bed. He denies any abdominal pain. He is tolerating solid diet. He does note some loose bowel movements. He offers no additional complaints. Physical Exam Gastrointestinal (Abdomen): Abdomen is soft and nondistended. There is minimal to no pain with palpation at the time of my exam. Results & Data Vital Signs (Past 12 Hours) Vital Signs Temp Pulse Resp BP O2 Del Method 12/01/23 20:02 Room Air 12/01/23 20:01 36.7 C 76 17 126/74 Room Air PG Care Time/CCT Total # of Minutes Spent Total Time Spent with Patient: Total time spent is greater than 50% in coordination of care (as documented) at patient's floor/unit and/or counseling patient: Coding Level of Care Code 61122 Post Operative Follow-Up Diagnoses SBO (small bowel obstruction) K56.609
[2023-12-02 06:11] LABS: Hematocrit (blood only) 33.1 % (42.0-52.0); Hemoglobin 11.1 g/dl (14.0-18.0); Mean Corpuscular Hemoglobin 31.3 pg (25.0-34.0); Mean Corpuscular Hgb Conc 33.5 g/dL (32.0-36.0); Mean Corpuscular Volume 93.2 fL (80.0-100.0); Mean Platelet Volume 10.5 fL (9.4-12.4); Platelet Count 302 K/uL (130-400); RDW Coefficient of Variation 13.7 % (11.5-14.5); RDW Standard Deviation 46.7 fL (36.4-46.3); Red Blood Count 3.55 M/uL (4.70-6.10); White Blood Count 10.91 K/ul (4.8-10.8)
[2023-12-02 06:40] LABS: BUN Creatinine Ratio 7.7 (10-20); Calcium 8.7 mg/dl (8.6-10.3); Creatinine Clr Calc Pharmacy 100.9 ml/min; Est GFR (African American) 103.5 ml/min; Est GFR (Non-African American) 89.3 ml/min; Magnesium 1.8 mg/dl (1.7-2.4); Potassium 3.7 mmol/L (3.5-5.1)
--- NOTE | 2023-12-02 09:23 | Hospitalist Progress Note ---
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 SBO (small bowel obstruction) Incarcerated ventral hernia In ER T: 36.6 C, P: 89, R: 18, BP 133/59, 97% on room air WBC elevated at 14K on admission -> now normalized Blood Cx x [address] abd/pelvis concerning for SBO with incarcerated hernia General Surgery consulted, appreciate recs -s/p bowel resection and hernia repair on 11/22 with bowel resection of Meckel's diverticulum and ischemic portion of bowel -Activity of OOB with assistance. Nursing with difficulty getting pt up and into the chair. -PT/OT -> plan for rehab Pain Control, antiemetics Advance diet per surgery recs - advanced to low fiber Acute Blood loss anemia Hgb dropped from 14.4 to ~11 post op Continue to monitor with AM hgb Hgb has been stable Electrolyte Abnormalities Hypokalemia- K of 3.3 on admission, replete and monitor Hyponatremia-Hx of SIADH. Sodium of 135 on admission. currently wnl. Continue to monitor Hyperglycemia Prediabetes Glucose levels elevated A1c: 5.3 on 08/31/2023 Hold home metformin NovoLog sliding scale correction only for now Current Hgb A1c 5.3% Elevated liver enzymes T bili and alk phos levels elevated on admission Currently wnl - resolved Ketonuria Dehydration UA with noted ketones Suggestive of dehydration, likely in acute SBO/incarcerated hernia noted above Received IVF Cr wnl Continue to trend Cr with AM labs Cardiomegaly Known Hx for pt Cardiomegaly noted on abd/pelvis CT Hs-troponin wnl EKG noting sinus rhythm with frequent atrial ectopy. Echo -LV systolic function abnormal EF 60 to 65%. RV systolic function is normal. Moderate valvular aortic stenosis. Aortic valve peak velocity of 3.2 m/s mean gradient of 20 mmHg. There is no pericardial effusion. Prostatomegaly Chronic bladder outlet obstruction Possible underlying mucosal lesion CT abd/pelvis noting "Marked prostatomegaly with evidence of chronic bladder outlet obstruction. There is asymmetric bladder wall thickening seen anteriorly on the left. Although this may be related to chronic outlet obstruction, an underlying mucosal lesion is not excluded. Follow up with urology is recommended for further assessment." UA unremarkable Urology follow up outpatient HTN Currently wnl Continue home PO metoprolol succinate Continue to monitor, resume home meds as soon as able Dyslipidemia resumed atorvastatin PAF (paroxysmal atrial fibrillation) Not on anticoagulation continue home PO metoprolol succinate Monitor on telemetry Leg edema History of chronic BLE edema On Lasix Currently appears euvolemic Lasix resumed on 11/26, pt previously on fluids while npo Holding Lasix moving forward, resume as able Diet: low fiber diet per Gen Surg DVT Prophylaxis: SCDs and Lovenox per Surgery Full Code as per discussion with patient Dispo: PT/OT -> plan for rehab Admission and Anticipated Discharge Date Admission Date: November 23, 2023 Subjective Pt seen in follow up of SBO, s/p ex-lap, incarcerated ventral hernia Currently laying in bed in [facility] Reports no significant abdominal pain, had loose stools. c. diff negative, repeated the test as he cont. to have frequent loose stools but now resolved and repeat sample was not done No fever, chills, chest pain, or shortness of breath Needs PT/OT -> plan [facility] Sunday Per surgery - diet advanced to low fiber Hypokalemia - now much improved Review of Systems Review of Systems: All systems reviewed & are unremarkable except as noted in Subjective Physical Exam Physical Exam: General: obese, elderly M in NAD HEENT: NC/AT Chest: Nontender to palpation. CV: RRR, + murmur Resp: Breath sounds clear bilaterally, no increased effort of breathing. Abdomen: Soft, mildly tender to palp., + bowel sounds, dressings in place Extremities: minimal edema in lower extremities b/l, moves extremities Neuro: awake, alert, oriented, speech fluent, answers appropriately, moves extremities Skin: warm, dry Results & Data Results & Data Vital Signs (Past 12 Hours) Vital Signs Temp Pulse Resp BP Pulse Ox O2 Del Method 12/02/23 07:52 36.7 C 75 16 116/63 94 Room Air Laboratory Results 12/02/23 Range/Units 05:40 WBC 10.91 H (4.8-10.8) K/ul RBC 3.55 L (4.70-6.10) M/uL Hgb 11.1 L (14.0-18.0) g/dl Hct 33.1 L (42.0-52.0) % MCV 93.2 (80.0-100.0) fL MCH 31.3 (25.0-34.0) pg MCHC 33.5 (32.0-36.0) g/dL RDW Std Deviation 46.7 H (36.4-46.3) fL RDW Coeff of Steven 13.7 (11.5-14.5) % Plt Count 302 (130-400) K/uL MPV 10.5 (9.4-12.4) fL Sodium 134 L (136-145) mmol/L Potassium 3.7 (3.5-5.1) mmol/L Chloride 104 (98-107) mmol/L Carbon Dioxide 25 (21-32) mmol/L Anion Gap 5 (3-11) BUN 5 L (6-23) mg/dl Creatinine 0.65 (0.6-1.4) mg/dl Est Cr Clr Drug Dosing 100.9 ml/min Est GFR ( Amer) 103.5 ml/min Est GFR (Non-Af Amer) 89.3 ml/min BUN/Creatinine Ratio 7.7 L (10-20) Glucose 97 (70-99(Fasting)) mg/dl Calcium 8.7 (8.6-10.3) mg/dl Phosphorus 3.0 (2.5-4.9) mg/dl Magnesium 1.8 (1.7-2.4) mg/dl Medications Administered Current Inpatient Medications Artificial Tears (Artificial Tears) 1 drops OP QAM [facility] Stop: 12/28/23 08:59 Last Admin: 12/02/23 08:28 Dose: 1 drops Atorvastatin Calcium (Atorvastatin 40 Mg Tab) 40 mg PO DAILY [facility] Stop: 12/28/23 08:59 Last Admin: 12/02/23 08:27 Dose: 40 mg Calcium Carbonate (Calcium Carbonate 500 Mg Chewable Tab) 500 mg PO Q6H PRN PRN Reason: Indigestion Stop: 12/27/23 06:41 Last Admin: 11/27/23 06:47 Dose: 500 mg Dextrose (Dextrose 50% 50 Ml Syringe) 25 - 50 ml IV UD PRN; Protocol PRN Reason: Hypoglycemia Protocol Stop: 12/23/23 18:25 Docusate Sodium (Docusate Sodium Syrup 100 Mg/10 Ml Udc) 50 mg PO DAILY [facility] Stop: 12/28/23 08:59 Last Admin: 11/28/23 10:56 Dose: Not Given Enoxaparin Sodium (Enoxaparin Inj 40 Mg/0.4 Ml Syr) 40 mg SQ QAM [facility] Stop: 12/24/23 08:59 Last Admin: 12/02/23 08:28 Dose: 40 mg Furosemide (Furosemide 40 Mg Tab) 40 mg PO [id number] [facility] Stop: 12/27/23 16:59 Last Admin: 11/27/23 17:10 Dose: 40 mg Gabapentin (Gabapentin 100 Mg Cap) 200 mg PO HS [facility] Stop: 12/27/23 20:59 Last Admin: 12/01/23 20:02 Dose: 200 mg Gabapentin (Gabapentin 100 Mg Cap) 100 mg PO DAILY [facility] Stop: 12/28/23 08:59 Last Admin: 12/02/23 08:27 Dose: 100 mg Glucagon (Glucagon For Inj 1 Mg Vial) 1 mg SQ UD PRN; Protocol PRN Reason: Hypoglycemia Protocol Stop: 12/23/23 18:25 Glucose (Glucose 10 Tab/Tube) 4 - 8 tab PO UD PRN; Protocol PRN Reason: Hypoglycemia Treatment Stop: 12/23/23 18:25 Glucose (Glucose 40% Gel 15 Gm Tube) 15 - 30 gm PO UD PRN; Protocol PRN Reason: Hypoglycemia Protocol Stop: 12/23/23 18:25 Famotidine (Pepcid 20mg Iv Push) 20 mg in 5 mls @ 2.5 mls/min IV Q12H [facility] Stop: 12/29/23 13:14 Last Admin: 12/02/23 00:42 Dose: 2.5 mls/min Metoprolol Succinate (Metoprolol Succ 50mg Ext Rel Tab) 50 mg PO BID [facility] Stop: 12/27/23 20:59 Last Admin: 12/02/23 08:27 Dose: 50 mg Miscellaneous (Carbohydrates For Hypoglycemia ) 15 - 30 gm PO UD PRN PRN Reason: Hypoglycemia Protocol Stop: 12/23/23 18:25 Morphine Sulfate (Morphine Sulfate 4 Mg/Ml 1 Ml Carp\\Vial) 4 mg IV Q3H PRN PRN Reason: Pain (6,7,8,9,10) Stop: 12/07/23 18:25 Last Admin: 11/25/23 13:17 Dose: 4 mg Morphine Sulfate (Morphine Sulfate 2 Mg/Ml Carp) 2 mg IV Q3H PRN PRN Reason: Pain (1,2,3,4,5) & Pre PT Stop: 12/07/23 18:25 Last Admin: 11/26/23 23:33 Dose: 2 mg Multivitamins/Minerals (Cerovite Adv Formula Tab) 1 tab PO QAM [facility] Stop: 12/28/23 08:59 Last Admin: 12/02/23 08:27 Dose: 1 tab Ondansetron HCl (Ondansetron Inj 2 Mg/Ml 2 Ml Vial) 4 mg IV Q6H PRN PRN Reason: Nausea Stop: 12/23/23 18:25 Last Admin: 11/26/23 23:35 Dose: 4 mg Oxycodone/Acetaminophen (Oxycodone/Acetaminophen 5mg/325mg Tab) 1 tab PO Q4H PRN PRN Reason: Moderate Pain (Scale 4, 5, 6) Stop: 12/11/23 08:07 Last Admin: 11/28/23 09:49 Dose: 1 tab Oxycodone/Acetaminophen (Oxycodone/Acetaminophen 5mg/325mg Tab) 2 tab PO Q4H PRN PRN Reason: Severe Pain (Scale 7, 8, 9,10) Stop: 12/11/23 08:07 Potassium Chloride (Potassium Chloride 20 Meq/15 Ml Udc) 40 meq PO TID [facility] Stop: 12/30/23 20:59 Last Admin: 11/30/23 21:03 Dose: 40 meq Vitamin D (Cholecalciferol 25 Mcg (1000 Units) Tab) 25 mcg PO DAILY [facility] Stop: 12/28/23 08:59 Last Admin: 12/02/23 08:27 Dose: 25 mcg (5) HTN (hypertension) Hypertension type: essential hypertension Qualified Code(s): I10 - Essential (primary) hypertension
[2023-12-02] MEDS: ACETAMINOPHEN 325 MG TAB PO PRN (16:13)
[2023-12-03 06:21] LABS: Hematocrit (blood only) 34.5 % (42.0-52.0); Hemoglobin 11.3 g/dl (14.0-18.0); Mean Corpuscular Hemoglobin 31.2 pg (25.0-34.0); Mean Corpuscular Hgb Conc 32.8 g/dL (32.0-36.0); Mean Corpuscular Volume 95.3 fL (80.0-100.0); Mean Platelet Volume 10.5 fL (9.4-12.4); Platelet Count 302 K/uL (130-400); RDW Coefficient of Variation 13.6 % (11.5-14.5); RDW Standard Deviation 48.1 fL (36.4-46.3); Red Blood Count 3.62 M/uL (4.70-6.10); White Blood Count 12.47 K/ul (4.8-10.8)
[2023-12-03 06:48] LABS: BUN Creatinine Ratio 11.7 (10-20); Calcium 8.6 mg/dl (8.6-10.3); Creatinine Clr Calc Pharmacy 109.3 ml/min; Est GFR (Non-African American) 92.3 ml/min; Magnesium 1.7 mg/dl (1.7-2.4); Potassium 3.4 mmol/L (3.5-5.1)
[2023-12-03] MEDS: POTASSIUM CHLORIDE CRTAB 20 MEQ TABCR PO STA (09:14)
[2023-12-03] MEDS: MAGNESIUM SULFATE / D5W 1 GM/100 ML BAG IV ONE (09:16)
--- NOTE | 2023-12-03 11:14 | Discharge Summary ---
Discharge Summary Date of Service December 03, 2023 Notes For Next Care Provider Please obtain a CBC, BMP and magnesium level in 3 days. Patients lasix has been on hold throughout hospital stay. It is being resumed at discharge. Please monitor renal function and potassium levels. Medication Changes From Visit Stop Docusate Continue all other home medications Admission HPI Per Admitting Provider Patient is 82 year old male with PMH HTN, dyslipidemia, paroxysmal atrial fibrillation not on anticoagulation, prediabetes, history of SIADH, former alcohol use presented to ER with complaint of abdominal pain x 1 day. History obtained from patient, patient's , inpatient and outpatient chart review. Reports mid abdominal pain over site of hernia x 1 day. States history chronic ventral abdominal hernia however noted became larger yesterday and states is not soft like it used to be. Today firm and hasn't been able to self reduce it. Last BM yesterday. Limited to no flatus today per patient. Also c/o nausea and vomiting since yesterday. Denies any known fever or chills. States hasn't had ETOH since 08/2023. Currently residing in personal fdc at [facility]. Denies hematemesis, melena, hematochezia, SLADE, dizziness, syncope, vision changes, neck pain, CP, SOB, palpitations, cough, rhinorrhea, increased weakness, increased extremity edema, rashes, urinary symptoms. In ER CT abd/pelvis with small bowel obstruction secondary to incarcerated small bowel loops within a large complex subumbilical hernia. Patient taken to OR for urgent surgery. Admission Exam Per Admitting Provider General: no acute distress, overweight elderly male Head: normocephalic, atraumatic Eyes: conjunctiva non-injected, anicteric ENT: normal inspection external ears, nose, mucous membranes moist Neck: supple, trachea midline Lungs: clear, no respiratory distress, no wheezing/rhonchi/rales CV: RRR, + murmur, 1+ pretibial edema Abd: protuberant, hypoactive BS, +large ventral hernia is tender to palpation and nonreducible, otherwise abdomen is non-tender Ext: no cyanosis, no erythema, no calf tenderness Neuro: A&O x 3, no focal deficits noted, normal affect Skin: warm, dry Principal Dx & Hospital Course #1 = Principal Diagnosis (1) SBO (small bowel obstruction): (2) Incarcerated ventral hernia: (3) Acute hypokalemia: (4) Abnormal computed tomography of abdomen and pelvis: (5) HTN (hypertension): (6) Dyslipidemia: (7) Prediabetes: (8) PAF (paroxysmal atrial fibrillation): (9) Leg edema: (10) Hyponatremia: (11) History of SIADH: Plan Patient is an 82 year old male with PMHx significant for HTN, dyslipidemia, paroxysmal atrial fibrillation not on anticoagulation, prediabetes, history of SIADH, former alcohol use presenting with complaint of abdominal pain x 1 day. 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 Nursing with difficulty getting pt up and into the chair. -PT/OT -> plan for rehab Low fiber diet x 2 weeks will need surgical follow upon discharge Acute Blood loss anemia in setting of expected blood loss from surgery and dilution Hgb dropped from 14.4 to ~11 post op Continue to monitor with AM hgb Hgb has been stable Electrolyte Abnormalities Hypokalemia- K of 3.3 on admission, repleted Hyponatremia-Hx of SIADH. Sodium of 135 on admission. currently wnl. Continue to monitor Hyperglycemia Prediabetes Glucose levels elevated A1c: 5.3 on 11/24 resume home metformin; however would recommend discussion with PCP if able to be discontinued to reduce pill burden given age Elevated liver enzymes T bili and alk phos levels elevated on admission Currently wnl - resolved Ketonuria Dehydration resolved Cardiomegaly Known Hx for pt Cardiomegaly noted on abd/pelvis CT Hs-troponin wnl EKG noting sinus rhythm with frequent atrial ectopy. Echo -LV systolic function abnormal EF 60 to 65%. RV systolic function is normal. Moderate valvular aortic stenosis. Aortic valve peak velocity of 3.2 m/s mean gradient of 20 mmHg. There is no pericardial effusion Prostatomegaly Chronic bladder outlet obstruction Possible underlying mucosal lesion CT abd/pelvis noting "Marked prostatomegaly with evidence of chronic bladder outlet obstruction. There is asymmetric bladder wall thickening seen anteriorly on the left. Although this may be related to chronic outlet obstruction, an underlying mucosal lesion is not excluded. Follow up with urology is recommended for further assessment." UA unremarkable Urology follow up outpatient HTN Currently wnl Continue home PO metoprolol succinate Dyslipidemia resumed atorvastatin PAF (paroxysmal atrial fibrillation) Not on anticoagulation continue home PO metoprolol succinate Monitor on telemetry Leg edema History of chronic BLE edema On Lasix Currently appears euvolemic Diet: low fiber diet per Gen Surg DVT Prophylaxis: Pt was receiving lovenox while hospitalized, would recommend to continue until patient consistently ambulating Full Code as per discussion with patient Dispo: D/C to [facility] today for rehab Discharge Exam Gen: WD/WN, elderly, M, NAD, A&O x3 HEENT: Normocephalic, atraumatic, conjunctivae moist, sclerae anicteric, mucous membranes dry. Lung: Clear to Auscultation bilaterally, no wheezes/rales/rhonchi Heart: Regular rate, regular rhythm, +KATIE, rubs, or gallops Abdomen: Soft, NT, ND +BS x 4 Extremities: No edema Skin: Warm, no rash, negative turgor. Updated Medication List Medication Instructions Recorded Confirmed Type atorvastatin 40 mg tablet (Lipitor) 40 mg PO DAILY 10/08/18 11/23/23 History cyanocobalamin (vitamin B-12) 1,000 mcg PO DAILY 10/08/18 11/23/23 History 1,000 mcg tablet (Vitamin B-12) propylene glycol 0.6 % eye drops 1 drp OPB QAM 10/08/18 11/23/23 History (Systane Balance) vit A 300 mcg-C 200 mg-E 27 1 tab PO QAM 10/08/18 11/23/23 History mg-lutein 2 mg and minerals tablet (Ocuvite with Lutein) metformin 500 mg 24 hr 500 mg PO PM 10/11/18 11/23/23 History tablet,extended release (gastric retention) cholecalciferol (vitamin D3) 25 25 mcg PO DAILY 03/02/23 11/23/23 History mcg (1,000 unit) capsule (Vitamin D3) gabapentin 100 mg capsule 100 mg PO DAILY 03/02/23 11/23/23 History magnesium oxide 400 mg (241.3 mg 400 mg PO BID #60 tabs 09/14/23 11/23/23 Rx magnesium) tablet metoprolol succinate 50 mg 50 mg PO BID #60 tabs 09/14/23 11/23/23 Rx tablet,extended release 24 hr potassium chloride 20 mEq 20 meq PO DAILY #30 tabs 09/14/23 11/23/23 Rx tablet,extended release docusate sodium 50 mg capsule 50 mg PO DAILY 11/23/23 11/23/23 History furosemide 40 mg tablet 40 mg PO BID 11/23/23 11/23/23 History gabapentin 100 mg capsule 200 mg PO HS 11/23/23 11/23/23 History Hospital Stay Data Consultations 11/23/23 12:58 Consult General Surgery Stat 11/23/23 13:19 ED Decision to Admit Stat 11/23/23 18:26 Consult General Surgery Routine Procedures Performed Operation Date: 11/23/23 09:55 Actual Procedures p Exploratory Laparotomy, small Bowel Resection, Hernia Repair(Not Applicable) - Domenic Rubalcava MD Diagnostic Imagining Performed Abdomen/Pelvis CT 11/23/23 11:23 CT SCAN OF THE ABDOMEN AND PELVIS WITH IV CONTRAST CLINICAL HISTORY: Vomiting. COMPARISON STUDY: No priors. TECHNIQUE: Following the IV administration of 93 cc of Optiray 320, CT scan of the abdomen and pelvis is performed from the lung bases to the proximal femora. Images are reviewed in the axial, sagittal, and coronal planes. IV contrast was administered without complication. A dose lowering technique was utilized adhering to the principles of ALARA. CT DOSE: 1337.02 mGy.cm FINDINGS: Lung bases: The heart is mildly enlarged and without pericardial effusion. The coronary arteries and aortic valve leaflets are densely calcified. The lung bases are clear noting bibasilar scarring/atelectasis. There is a small hiatal hernia. Liver: The contrast-enhanced liver is normal in size, contour, and attenuation. There is no intrahepatic biliary ductal dilatation. The hepatic veins and portal veins are patent. Gallbladder: Unremarkable. Spleen: Normal in size and attenuation. A 14 mm splenic hypodensity seen on image #87 is indeterminate and statistically of doubtful significance. 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 Pancreas: Moderately atrophic and grossly unremarkable. 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 The left adrenal gland is normal in appearance. Kidneys: The contrast enhanced kidneys demonstrate cortical atrophy and are without hydronephrosis. The kidneys enhance symmetrically. Scattered subcentimeter cortical hypodensities likely represent cysts but are too small for definitive characterization. Abdominal vasculature: The abdominal aorta is normal in course and caliber noting advanced atherosclerotic calcification. Bowel: There are small bowel loops contained within a large fat-containing subumbilical hernia. The small bowel loops above the hernia are distended and fluid-filled, measuring up to 4 cm diameter. The small bowel exiting exiting the hernia the distal small bowel is decompressed. This is consistent with a site of small bowel obstruction, and the transition point is seen on axial image #212. There is no pneumatosis intestinalis or portal venous gas. No focally thick- walled bowel loops are identified. There is advanced colonic diverticulosis without CT evidence of acute diverticulitis. The appendix is not identified and reported surgically absent. Peritoneum: There is a small volume of pelvic ascites. No intraperitoneal free air is identified. There is a large complex fat-containing supraumbilical hernia which contains bowel and trace fluid. This is seen on axial image #207. There is also a fat-containing umbilical hernia. There is an indeterminant low- attenuation structure anterior to the right kidney seen on image #140. This measures 2.6 x 1.8 cm, measures water density, and may represent a lymphangioma. Lymphadenopathy: None. Pelvic viscera: The prostate gland is markedly enlarged and heterogeneous. The bladder wall is thickened/trabeculated indicating chronic outlet obstruction. Bladder wall thickening is asymmetrically greatest anteriorly on the left. This is best seen on image #297 and measures up to 1.0 cm in thickness. There are bilateral fat containing inguinal hernias, left larger than right. The left groin hernia contains trace fluid. Skeletal structures: The skeletal structures are osteopenic. There is advanced lumbosacral spondylosis. No lytic or blastic lesions are seen. IMPRESSION: 1. Small bowel obstruction secondary to incarcerated small bowel loops within a large complex subumbilical hernia. 2. No thick-walled bowel loops are identified. There is no pneumatosis intestinalis, portal venous gas, or intraperitoneal free air. 3. Advanced colonic diverticulosis without CT evidence of acute diverticulitis. 4. Marked prostatomegaly with evidence of chronic bladder outlet obstruction. There is asymmetric bladder wall thickening seen anteriorly on the left. Although this may be related to chronic outlet obstruction, an underlying mucosal lesion is not excluded. Follow up with urology is recommended for further assessment. 5. Large bilateral inguinal hernias. 6. Mild cardiomegaly. 7. Additional findings as above. ACT 112: Positive. There are findings on this exam that require communication between the performing entity and the patient following Patient Test Result Information Act ([place] Act 112) guidelines. Electronically signed by: Dar Torres M.D. 11/23/2023 12:08 PM Pending Results Patient Have Any Pending Studies at Discharge: No Discharge Instructions Given to Patient (Per Discharging Provider) MEDICATION CHANGES: Stop Docusate Sodium Continue all other medications as prescribed. SUMMARY OF TEST RESULTS: You were admitted to hospital secondary to small bowel obstruction and incarcerated ventral hernia. You underwent surgery by Dr. Rubalcava, including a bowel resection and hernia repair on 11/22. You tolerated the procedure well. Your diet has been advanced and you are tolerating a low fiber diet at discharge. You are also moving your bowels. Your potassium has been low throughout your hospital stay and this has been supplemented. You are being discharged to rehab prior to returning to your assisted living facility. PENDING TEST RESULTS: none RECOMMENDATIONS FOR FOLLOW-UP: Please follow-up with general surgery upon discharge as scheduled. Continue low fiber diet. Please follow-up with your primary care provider upon discharge from rehab. Continue all other medications as prescribed. Please repeat a BMP in 3 days to monitor for low potassium and assess kidney function with resuming of Lasix. Please check a magnesium level in 3 days. Recommend daily weights and strict intake and output. You currently are on the medication called metformin. Your A1c during her hospital stay was 5.3. I feel that your metformin can be discontinued given age and this would help reduce pill burden. I would recommend discussing this with your family doctor upon discharge from rehab. Please follow up with Urology as an outpatient to address bladder wall thickening that was found on CT scan. OTHER INSTRUCTIONS: Seek medical attention if you have: * temperature above 101 * chest pain or trouble breathing * abdominal pain, nausea, vomiting * diarrhea, dark stools or bloody stools * any unanswered questions or concerns Call 911 if symptoms are severe. Please take good care of yourself. It has been a pleasure taking care of you. Please take care of yourself. If you have any questions regarding your recent hospitalization please contact [facility] and request Bryon Gupta @ [phone]. Total Time Total Time Spent Total Time Spent (In Minutes): 45 minutes Supervising Physician Co-Signing Physician Notes Pt seen and examined by me, care coordinated with Cleveland De La Garza PA-C, pls refer to her note above for further detail. Pt is s/p surgery for incarcerated ventral hernia. He has recovered well, he is eating and is having bowel movements. Overall, feeling well and planning to be discharged. He is awake alert , oriented, answering appropriately, lungs are CTAB, heart sounds regular. Abdomen is soft and nontender. Pt is not very mobile and requires care and assistance. Recommend to monitor potassium level. MD Leonid
--- NOTE | 2023-12-03 12:55 | Surgery Progress Note ---
Date of Service December 03, 2023 Assessment & Plan (1) SBO (small bowel obstruction): (2) Incarcerated hernia: Plan POD#10 s/p exploratory laparotomy, small bowel resection, hernia repair +return of bowel function - no postop pain - c.diff negative Continue low fiber diet. He is progressing from surgery standpoint, main concern at this time is his mobility and ability to work with PT/OT. Okay from surgical standpoint for discharge to rehab per PT/OT recommendations remove da today DVT prophylaxis with SCD boots and Lovenox Admission and Anticipated Discharge Date Admission Date: November 23, 2023 Subjective doing well; no nausea/vomiting; no fevers/chills Physical Exam Physical Exam: AFVSS NAD, A&O x 3 Abdomen: Soft, mild TTP Incision C/D/I HOLLIE with minimal serosanguineous output Binder in place Results & Data Vital Signs (Past 12 Hours) Vital Signs Temp Pulse Resp BP Pulse Ox O2 Del Method 12/03/23 09:15 Room Air 12/03/23 07:54 36.6 C 64 16 116/63 96 Room Air
== END 2023-12-03 13:39 | DRG 329 ==
LOC: ED 10:14 → OR 13:29 → 2S 13:37 → SUATTDRO 13:37 → OR 13:44 → 3N 11-29 14:28

== ENCOUNTER 2024-07-24 14:54 | Inpatient (IN) ==
--- NOTE | 2024-07-24 15:22 | Emergency Department Note ---
Impression & Plan Ulcer of right foot, Cellulitis of foot, right ED Provider Note Provider: Vaughn Baker MD CHIEF COMPLAINT: Right foot infection HISTORY OF PRESENT ILLNESS: Patient is a 83-year-old gentleman past medical history of hypertension, spinal stenosis, paroxysmal atrial fibrillation on anticoagulants presenting here today via ambulance for the wound center. Patient states that approximately 3 weeks ago he was here and noticed significant swelling of the lower extremities. Had workup and was started on additional Lasix for diuresis and his legs have stopped with swelling. Time there is very small wound by his right first metatarsal. 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 Denies significant trauma. Again leg swelling has gone down with the diuresis however with his doctor and was on some Keflex. Wounds have expanded significantly both of the first metatarsal as well as developing near the medial right heel. Redness throughout here. Again patient without pain due to his neuropathy. No fever chills reported. Finally got into wound care today and referred here for further evaluation given concerns for a deeper infection. Not currently on antibiotics. PAST MEDICAL HISTORY: As noted above MEDICATIONS: Reviewed home medication use not anticoagulants SOCIAL HISTORY: , currently reside at [facility] PHYSICAL EXAM: GENERAL: alert and oriented in no acute distress on stretcher Head: normocephalic and atraumatic EYES: No injection, discharge or icterus. NECK: Trachea midline. ENT: Mucous membranes pink and moist. LUNGS: Airway patent. No retractions. Breath sounds HEART: Regular rate and rhythm. No chest wall tenderness ABDOMEN: Soft and non-tender, without guarding or rebound. SKIN: Acyanotic, warm, dry, without rashes EXTREMITIES: Without swelling, tenderness or deformity except for the right lower extremity which has 2+ edema below the mid calf. Erythema over the dorsum of the foot to the heel and a large approximately 4 cm wound to the medial first metatarsal as well as an approximately 4 cm wound to the medial right heel. No crepitus. Surrounding erythema with some black eschar in the middle without significant discharge. NEUROLOGICAL: No aphasia. No facial droop or slurred speech. Bilateral numbness but the lower feet has been an ongoing issue. EK bpm sinus rhythm first-degree heart block. Right bundle branch block without acute ST segment elevation with some nonspecific T wave changes. QTc 44. CONTINUOUS CARDIAC MONITORING: was ordered and showed a heart rate of 60s to 70s bpm in first-degree heart block Patient's laboratory studies and imaging reviewed. Differential includes Cellulitis, abscess, MRSA infection, DVT, necrotizing fasciitis, dermatitis, drug eruption, allergic reaction, as well as other pathologies. IMPRESSION/MEDICAL DECISION MAKING: Reviewed wound care note from today as well as prior ER visit and venous ultrasound. No evidence of DVT on recent ultrasound. Do agree with wound care this has concerns for deepening infection. X-ray without findings of osteomyelitis noted. Will obtain blood work and get an ultrasound to look for arterial flow here. Will start on broad-spectrum antibiotics. Does not appear unstable or significantly septic at this point. Nothing really to culture on the surface. Mild leukocytosis of 11. ESR and CRP are both elevated procalcitonin not severely elevated. Doubt sepsis. Will cover with Zosyn and daptomycin for MRSA coverage and anaerobic coverage. Will likely need further imaging of the foot MRI versus CT. discussed with the hospitalist team for further care here. Arterial ultrasound does return with some sluggish flow but no definite occlusion identified. DIAGNOSIS: Right lower extremity ulcer and cellulitis DISPOSITION: Hospitalist will evaluate Patient was agreeable with this plan. Past Med/Surg History Problem List (Updated 07/24/24 @ 14:25 by DEDRICK Cheema) Abnormal ankle brachial index (MONA) (Acute) Cellulitis of right foot (Acute) Open wound of right foot (Acute) History of SIADH Hyponatremia Elevated troponin (Acute) COVID-19 (Acute) Weakness (Acute) PAF (paroxysmal atrial fibrillation) Alcohol use (Chronic) History of tonsillectomy and adenoidectomy (Chronic) History of appendectomy (Chronic) Lumbar spinal stenosis (Chronic) Dyslipidemia (Chronic) Prediabetes (Chronic) HTN (hypertension) (Chronic) Medical History Abnormal computed tomography of abdomen and pelvis Acute hypokalemia Vomiting Leukocytosis SBO (small bowel obstruction) Incarcerated hernia Incarcerated ventral hernia Leg edema Symptomatic anemia Acute GI bleeding Umbilical hernia Hx of spinal stenosis Family History Mother CHF (congestive heart failure) Social History (Updated 07/24/24 @ 13:45 by Elise Alejandra RN) Smoking Status: Former smoker Second Hand Exposure: No; Do You Dip or Chew Tobacco: No; Hx Alcohol Use: No Hx Substance Use: No Preferred Language: Serbian Communication Ability: Effective 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 Beliefs That Will Affect Care: None marital status: Current Living Situation: Personal Care Facility Current Living Situation Comment: [facility] current occupational status: retired Feels Safe at Home: Yes Physical Activity Frequency: Does not Exercise Assistive Devices: Denture - Upper, Glasses, Scooter/Electric Scooter and Wheelchair Allergies Allergies Allergy/AdvReac Type Severity Reaction Status Date / Time No Known Allergies Allergy Verified 07/24/24 13:14 Home Meds Home Medications Medication Instructions Recorded Confirmed vit A 300 mcg-C 200 mg-E 27 1 tab PO QAM 10/08/18 07/24/24 mg-lutein 2 mg and minerals tablet (Ocuvite with Lutein) cholecalciferol (vitamin D3) 25 25 mcg PO DAILY 03/02/23 07/24/24 mcg (1,000 unit) capsule (Vitamin D3) gabapentin 100 mg capsule 100 mg PO DAILY 03/02/23 07/24/24 gabapentin 100 mg capsule 200 mg PO HS 11/23/23 07/24/24 B-complex with vitamin C 1 tab PO DAILY 07/24/24 07/24/24 acetaminophen 650 mg 650 mg PO Q12H 07/24/24 07/24/24 tablet,extended release atorvastatin 40 mg tablet 40 mg PO DAILY 07/24/24 07/24/24 docusate sodium 50 mg capsule 50 mg PO DAILY 07/24/24 07/24/24 furosemide 40 mg tablet 40 mg PO AMHS 07/24/24 07/24/24 magnesium oxide 400 mg (241.3 mg 400 mg PO DAILY 07/24/24 07/24/24 magnesium) tablet metoprolol succinate 50 mg 50 mg PO AMHS 07/24/24 07/24/24 tablet,extended release 24 hr polyethylene glycol 3350 17 gram 17 g PO DAILY 07/24/24 07/24/24 oral powder packet (Miralax) propylene glycol 0.6 % eye drops 1 drp OPB TID 07/24/24 07/24/24 (Systane Balance) Results & Data (ED) Vital Signs Vital Signs - 24 hr 07/24/24 14:55 07/24/24 17:51 Temperature 36.6 C Temperature Source Oral Pulse Rate 74 Pulse Rate [Apical] 76 Respiratory Rate 18 20 Respiratory Effort / Characteristics Non-Labored Spontaneous Non-Labored Spontaneous Respiratory Depth Normal Normal Respiratory Pattern Regular Regular Blood Pressure 132/50 L Blood Pressure [Right Arm] 139/78 Blood Pressure Mean 77 Blood Pressure Mean [Right Arm] 98 Pulse Oximetry 97 96 Oxygen Delivery Method Room Air Room Air Sepsis Recent Fever Within 48 Hours No Sepsis New/Unexplained Change in Mental Status N/A Sepsis Action Taken by Nursing No Action Required Laboratory Data 07/24/24 15:24 07/24/24 15:24 Lab Results 07/24/24 Range/Units 15:24 WBC 11.63 H (4.8-10.8) K/ul RBC 4.47 L (4.70-6.10) M/uL Hgb 13.8 L (14.0-18.0) g/dl Hct 40.2 L (42.0-52.0) % MCV 89.9 (80.0-100.0) fL MCH 30.9 (25.0-34.0) pg MCHC 34.3 (32.0-36.0) g/dL RDW Std Deviation 43.7 (36.4-46.3) fL RDW Coeff of Steven 13.2 (11.5-14.5) % Plt Count 313 (130-400) K/uL MPV 10.2 (9.4-12.4) fL Immature Gran % (Auto) 0.4 % Neut % (Auto) 69.8 % Lymph % (Auto) 18.4 % [place] % (Auto) 7.8 % Eos % (Auto) 3.1 % Baso % (Auto) 0.5 % Neut # (Auto) 8.11 H (1.40-6.50) K/uL Lymph # (Auto) 2.14 (1.20-3.40) K/uL [place] # (Auto) 0.91 H (0.11-0.59) K/uL Eos # (Auto) 0.36 (0.00-0.50) K/uL Baso # (Auto) 0.06 (0.00-0.20) K/uL Immature Gran # (Auto) 0.05 (0.01-0.20) K/uL ESR 70 H (0-20) mm/hr Sodium 142 (136-145) mmol/L Potassium 3.7 (3.5-5.1) mmol/L Chloride 103 (98-107) mmol/L Carbon Dioxide 27 (21-32) mmol/L Anion Gap 12 H (3-11) BUN 14 (6-23) mg/dl Creatinine 0.70 (0.6-1.4) mg/dl Est Cr Clr Drug Dosing 91.3 ml/min eGFR 90.30 BUN/Creatinine Ratio 20.0 (10-20) Glucose 103 H (70-99(Fasting)) mg/dl Lactate 1.9 (0.4-2.0) mmol/L Calcium 9.9 (8.6-10.3) mg/dl Magnesium 1.9 (1.7-2.4) mg/dl Troponin I High Sens 10.5 (0-20) pg/ml C-Reactive Protein 5.73 H (0-0.5) mg/dl Procalcitonin < 0.02 (0-0.5) ng/ml Administered Medications Discontinued Medications Piperacillin Sod/Tazobactam Sod (Zosyn) 4.5 gm in 100 mls @ 200 mls/hr IV NOW ONE; Protocol Stop: 07/24/24 15:42 Last Infusion: 07/24/24 17:50 Dose: Infused Documented By: Infusion: 07/24/24 17:27 Dose: 200 mls/hr Documented By: Infusion: 07/24/24 16:50 Dose: 0 mls/hr Documented By: Admin: 07/24/24 16:47 Dose: 200 mls/hr Documented By: BMK Imaging Data Radiologist's Impression: Foot X-Ray 07/24/24 15:12 XR foot RT min 3V routine HISTORY: 83 years-old Male wounds infection COMPARISON: None TECHNIQUE: 3 views of the right foot FINDINGS: Arterial calcifications. Pronounced diffuse soft tissue swelling. Multifocal osteoarthritis, moderate within the interphalangeal and first metatarsophalangeal joints. No acute fracture, dislocation or definite osseous erosion identified by radiography. IMPRESSION: Soft tissue swelling without acute osseous abnormality identified. ACT 112: Negative or not required by law. The above report was generated using voice recognition software. It may contain grammatical, syntax or spelling errors. Electronically signed by: Jero Hemphill M.D. 07/24/2024 3:52 PM Duplex Scan Lower Extremity Artery 07/24/24 15:13 EXAM: US Duplex Right Lower Extremity Arteries INDICATION: History Reason For Study TECHNIQUE: Real-time duplex ultrasound scan of the right lower extremity arteries integrating B-mode two-dimensional vascular structure, Doppler spectral analysis and color flow Doppler imaging. COMPARISON: No relevant prior studies available. FINDINGS: Right common femoral artery: Peak systolic velocity 56 cm/s. No occlusion or significant stenosis on color flow and spectral Doppler imaging. Monophasic waveform. Right superficial femoral artery: Peak systolic velocity 58 cm/s. No occlusion or significant stenosis on color flow and spectral Doppler imaging. Monophasic waveform. Right popliteal artery: Peak systolic velocity 87 cm/s. No occlusion or significant stenosis on color flow and spectral Doppler imaging. Monophasic waveform. Right calf/foot arteries: Soft tissue edema limits assessment. Flow in the anterior tibial artery is 109 cm/s.. No occlusion or significant stenosis on color flow and spectral Doppler imaging. Monophasic waveform. Soft tissues: Subcutaneous soft tissue swelling noted. No organized collection identified IMPRESSION: There is relatively sluggish flow from the groin to the knee without segmental or focal stenotic lesion identified. Popliteal and calf arterial flow elevated to up to 109 cm/s likely reflects generalized less than 50% narrowing. Again, no segmental or defined stenotic area is identified sonographically. ACT 112: Negative or not required by law. Electronically signed by Nubia Blue 07-24-2024 4:52 PM Discharge Plan Visit Data Chief Complaint: Swelling/Edema to Extremity Stated Complaint: CELLULITIS TO RIGHT LEG ED Provider: Vaughn Baker Discharge Problem: Ulcer of right foot, Cellulitis of foot, right Patient Disposition: Being Evaluated by Hospitalist Discharge Instructions Interventions: ED Discharge Assessment Last Done: 07/24/24 18:03 Forms Stand Alone Forms: [facility] Prescriptions Prescriptions: No Action acetaminophen 650 mg tablet extended release 650 mg PO Q12H Rx Instructions: Daily at 0800 and 1400 magnesium oxide 400 mg (241.3 mg magnesium) tablet 400 mg PO DAILY B-complex with vitamin C Tablet 1 tab PO DAILY Ocuvite with Lutein 1,000 unit-200 mg-60 unit-2 mg Tablet 1 tab PO QAM Systane Balance 0.6 % drops 1 drp OPB TID Rx Instructions: one drop both eyes 3 times a day cholecalciferol (vitamin D3) [Vitamin D3] 25 mcg (1,000 unit) Capsule 25 mcg PO DAILY gabapentin 100 mg capsule 100 mg PO DAILY gabapentin 100 mg capsule 200 mg PO HS atorvastatin 40 mg tablet 40 mg PO DAILY furosemide 40 mg tablet 40 mg PO AMHS metoprolol succinate 50 mg tablet extended release 24 hr 50 mg PO AMHS polyethylene glycol 3350 [Miralax] 17 gram Powder In Packet 17 g PO DAILY docusate sodium 50 mg Capsule 50 mg PO DAILY Referrals Referrals: Jerry Medrano MD [Primary Care Provider] -
[2024-07-24 15:48] LABS: Basophils # (auto) 0.06 K/uL (0.00-0.20); Basophils % (auto) 0.5 %; Eosinophils # (auto) 0.36 K/uL (0.00-0.50); Eosinophils % (auto) 3.1 %; Hematocrit (blood only) 40.2 % (42.0-52.0); Hemoglobin 13.8 g/dl (14.0-18.0); Immature Granulocytes # (auto) 0.05 K/uL (0.01-0.20); Immature Granulocytes % (auto) 0.4 %; Lymphocytes # (auto) 2.14 K/uL (1.20-3.40); Lymphocytes % (auto) 18.4 %; Mean Corpuscular Hemoglobin 30.9 pg (25.0-34.0); Mean Corpuscular Hgb Conc 34.3 g/dL (32.0-36.0); Mean Corpuscular Volume 89.9 fL (80.0-100.0); Mean Platelet Volume 10.2 fL (9.4-12.4); Monocytes # (auto) 0.91 K/uL (0.11-0.59); Monocytes % (auto) 7.8 %; Neutrophils # (auto) 8.11 K/uL (1.40-6.50); Neutrophils % (auto) 69.8 %; Platelet Count 313 K/uL (130-400); RDW Coefficient of Variation 13.2 % (11.5-14.5); RDW Standard Deviation 43.7 fL (36.4-46.3); Red Blood Count 4.47 M/uL (4.70-6.10); White Blood Count 11.63 K/ul (4.8-10.8)
--- NOTE | 2024-07-24 15:55 | XRay Report ---
XR foot RT min 3V routine HISTORY: 83 years-old Male wounds infection COMPARISON: None TECHNIQUE: 3 views of the right foot FINDINGS: Arterial calcifications. Pronounced diffuse soft tissue swelling. Multifocal osteoarthritis, moderate within the interphalangeal and first metatarsophalangeal joints. No acute fracture, dislocation or d efinite osseous erosion identified by radiography. IMPRESSION: Soft tissue swelling without acute osseous abnormality identified. ACT 112: Negative or not required by law. The above report was generated using voice recognition software. It may contain grammatical, syntax o r spelling errors. Electronically signed by: Jero Hemphill M.D. 07/24/2024 3:52 PM
[2024-07-24 16:06] LABS: C Reactive Protein 5.73 mg/dl (0-0.5); Calcium 9.9 mg/dl (8.6-10.3); Creatinine Clr Calc Pharmacy 91.3 ml/min; Magnesium 1.9 mg/dl (1.7-2.4); Potassium 3.7 mmol/L (3.5-5.1)
[2024-07-24 16:12] LABS: Troponin I High Sensitivity 10.5 pg/ml (0-20)
--- NOTE | 2024-07-24 16:18 | History & Physical Report ---
Date of Service July 24, 2024 Assessment & Plan (1) Open wound of right foot: (2) Cellulitis of right foot: (3) PAF (paroxysmal atrial fibrillation): (4) HTN (hypertension): (5) Dyslipidemia: (6) Lumbar spinal stenosis: (7) History of SIADH: Plan Open foot wound, right foot Cellulitis right foot Elevated CRP -Admit to [facility] - Failed outaptient abx Keflex x 10d course. Worsening erythema, wounds, and now with cellulitis moving up the leg. -Consult podiatry for debridement and wound consult - pt is following with outpatient wound clinic -Follow blood cultures for cellulitis, may continue IV daptomycin and Zosyn IV -CXR foot is negative for osteomyelitis -Check ABIs -PT/OT eval, reportedly is nonambulatory and in wheelchair primarily from [facility] Paroxysmal A-fib HTN HLD -Rate controlled on metoprolol, NOT on anticoagulation Lumbar spinal stenosis -Pain control History of SIADH Hyponatremia -History of such, currently sodium is well-controlled - Pt is on lasix daily, can continue. K+ stable, follow with am labs but he is not on oral supplementation any more. May continue mag-ox. Constipation - Continue bowel regimen. DVT ppx: teds, scds Lines: PIV x 1 FEN/GI: Allow HH diet, NPO at midnight in case needs for surgical debridement CODE: DNR/DNI Dispo: From home, likely to remain in the hospital x 1-2 days A total of 75 minutes were spent with greater than 50% of that time face to face with the patient, personally reviewing all current laboratories, imaging studies, past medication reconciliation, outpatient chart review, and discussion with specialists to collaborate care for the patient with attending. Please see attending documentation for corrections and/or additions. History of Present Illness Chief Complaint: Right foot wound Primary Care Provider: Jerry Medrano MD This is a 83-year-old male with PMHx of paroxysmal atrial fibrillation, HTN, HLD, history of alcohol use, hyponatremia, SIADH, prostatitis, B12 deficiency and lumbar spinal stenosis who presents from [facility] for R great toe wound and heel wound which developed around the end of June. He was dealing with edema in lower extremities at that time which is now resolved, but states that the wound has worsened despite treatment with a course of Kelfex recently, finished a 10 day course on 07/22/24. Pt presents here from the wound clinic for further evaluation and after being there was sent to the ER due to concern for bone involvement. He has no history of diabetes. Pt has not walked in about 2-3 years. His , Xiomy, is a retired nurse and present at bedside to support the history. Blood cultures x 2 have been obtained. Starting IV ceftriaxone at bedside. Pt states that he took all of his morning medications today. Allergies Allergy/AdvReac Type Severity Reaction Status Date / Time No Known Allergies Allergy Verified 07/24/24 13:14 Home Medications Medication Instructions Recorded Confirmed Type vit A 300 mcg-C 200 mg-E 27 1 tab PO QAM 10/08/18 07/24/24 History mg-lutein 2 mg and minerals tablet (Ocuvite with Lutein) cholecalciferol (vitamin D3) 25 25 mcg PO DAILY 03/02/23 07/24/24 History mcg (1,000 unit) capsule (Vitamin D3) gabapentin 100 mg capsule 100 mg PO DAILY 03/02/23 07/24/24 History gabapentin 100 mg capsule 200 mg PO HS 11/23/23 07/24/24 History B-complex with vitamin C 1 tab PO DAILY 07/24/24 07/24/24 History acetaminophen 650 mg 650 mg PO Q12H 07/24/24 07/24/24 History tablet,extended release atorvastatin 40 mg tablet 40 mg PO DAILY 07/24/24 07/24/24 History docusate sodium 50 mg capsule 50 mg PO DAILY 07/24/24 07/24/24 History furosemide 40 mg tablet 40 mg PO AMHS 07/24/24 07/24/24 History magnesium oxide 400 mg (241.3 mg 400 mg PO DAILY 07/24/24 07/24/24 History magnesium) tablet metoprolol succinate 50 mg 50 mg PO AMHS 07/24/24 07/24/24 History tablet,extended release 24 hr polyethylene glycol 3350 17 gram 17 g PO DAILY 07/24/24 07/24/24 History oral powder packet (Miralax) propylene glycol 0.6 % eye drops 1 drp OPB TID 07/24/24 07/24/24 History (Systane Balance) Past Med/Surg History Problem List (Updated 07/24/24 @ 14:25 by DEDRICK Cheema) Abnormal ankle brachial index (MONA) (Acute) Cellulitis of right foot (Acute) Open wound of right foot (Acute) History of SIADH Hyponatremia Elevated troponin (Acute) COVID-19 (Acute) Weakness (Acute) PAF (paroxysmal atrial fibrillation) Alcohol use (Chronic) History of tonsillectomy and adenoidectomy (Chronic) History of appendectomy (Chronic) Lumbar spinal stenosis (Chronic) Dyslipidemia (Chronic) Prediabetes (Chronic) HTN (hypertension) (Chronic) Medical History Abnormal computed tomography of abdomen and pelvis Acute hypokalemia Vomiting Leukocytosis SBO (small bowel obstruction) Incarcerated hernia Incarcerated ventral hernia Leg edema Symptomatic anemia Acute GI bleeding Umbilical hernia Hx of spinal stenosis Family History Mother CHF (congestive heart failure) Social History (Updated 07/24/24 @ 13:45 by Elise Alejandra RN) Smoking Status: Former smoker Second Hand Exposure: No; Do You Dip or Chew Tobacco: No; Hx Alcohol Use: No Hx Substance Use: No Preferred Language: South Sudanese Communication Ability: Effective 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 current occupational status: retired Feels Safe at Home: Yes Physical Activity Frequency: Does not Exercise Assistive Devices: Denture - Upper, Glasses, Scooter/Electric Scooter and Wheelchair Review of Systems Review of Systems: Constitutional: No fever, sweats or chills Eyes: No diplopia, no worsening or blurred vision ENT: normal hearing, no trouble swallowing Respiratory: No cough, sputum, dyspnea at rest or on exertion Cardiovascular: No chest pain, tightness or palpitations Abdomen: No pain, nausea, vomiting, diarrhea or constipation Musculoskeletal: No joint pain, calf pain, swelling Neurologic: No weakness, + peripheral foot neuropathy, numbness/tingling, does not ambulate. Wheelchair bound. Psychiatric: No anxiety or depression Skin: No rash or itch Physical Exam Physical Exam: General: awake, alert, no apparent distress, elderly male Head: Normocephalic, atraumatic ENT: PERRL, EOMI, no pharyngeal exudate, mucous membranes moist Chest: Clear to auscultation, on room air, no adventitious breath sounds Cardiac: Regular rate and rhythm, no murmur, no JVD, normal peripheral pulses, good capillary refill Abdominal: NABS x 4 quadrants, soft, nondistended, nontender to palpation, no rebound or guarding Extremities: RLE with erythema and warmth over the foot and extending up past the ankle (outlined with marker), + dark eschar over the great toe metatarsal aspect about 4cm in diameter, medial heel ulceration also with blackened eschar about the same size. No purulence. Normal inspection, no peripheral edema or erythema, calfs nontender to palpation Psych: Normal mood and affect Neuro: AAO x 3, strength intact bilaterally and rated 5/5 in upper extremities, cannot lift lower extremities while seated. , no motor deficits, speech is clear, no peripheral sensory deficits Results & Data Results & Data Vital Signs (Past 12 Hours) Vital Signs Temp Pulse Resp BP Pulse Ox O2 Del Method 07/24/24 14:55 36.6 C 74 18 132/50 L 97 Room Air Laboratory Results 07/24/24 15:24 Aerobic Blood Culture - Pending Blood Anaerobic Blood Culture - Pending 07/24/24 15:24 WBC 11.63 H RBC 4.47 L Hgb 13.8 L Hct 40.2 L MCV 89.9 MCH 30.9 MCHC 34.3 RDW Std Deviation 43.7 RDW Coeff of Steven 13.2 Plt Count 313 MPV 10.2 Immature Gran % (Auto) 0.4 Neut % (Auto) 69.8 Lymph % (Auto) 18.4 [place] % (Auto) 7.8 Eos % (Auto) 3.1 Baso % (Auto) 0.5 Neut # (Auto) 8.11 H Lymph # (Auto) 2.14 [place] # (Auto) 0.91 H Eos # (Auto) 0.36 Baso # (Auto) 0.06 Immature Gran # (Auto) 0.05 ESR 70 H Sodium 142 Potassium 3.7 Chloride 103 Carbon Dioxide 27 Anion Gap 12 H BUN 14 Creatinine 0.70 Est Cr Clr Drug Dosing 91.3 eGFR 90.30 BUN/Creatinine Ratio 20.0 Glucose 103 H Lactate 1.9 Calcium 9.9 Magnesium 1.9 Troponin I High Sens 10.5 C-Reactive Protein 5.73 H Procalcitonin < 0.02 Diagnostic Findings Foot X-Ray 07/24/24 15:12 XR foot RT min 3V routine HISTORY: 83 years-old Male wounds infection COMPARISON: None TECHNIQUE: 3 views of the right foot FINDINGS: Arterial calcifications. Pronounced diffuse soft tissue swelling. Multifocal osteoarthritis, moderate within the interphalangeal and first metatarsophalangeal joints. No acute fracture, dislocation or definite osseous erosion identified by radiography. IMPRESSION: Soft tissue swelling without acute osseous abnormality identified. ACT 112: Negative or not required by law. The above report was generated using voice recognition software. It may contain grammatical, syntax or spelling errors. Electronically signed by: Jero Hemphill M.D. 07/24/2024 3:52 PM Code Status & VTE Plan Code Status DNR/DNI - discussed with the pt and at bedside Supervising Physician Co-Signing Physician Notes 07/24/2024 Patient was seen and examined in emergency room in presence of the He has been complaining of swelling of the legs more on the right than the left and also Open wound involving the right foot This has been going on for about a month and the condition has gotten worse for the last day or 2 Denies any fever and no chills does not have any significant pain On examination Lying in bed without any apparent distress Hemodynamically stable Chestdecreased breath sound bilateral HeartS1-S2, regular Abdomenbenign Extremities bilateral leg swelling more on the right than the left with 2 open wounds involving the medial wall of the right foot and also the medial heel of the right foot with adjoining inflammation CNSalert, awake and oriented x 3. Moves all extremities but he has been almost bedbound His admission labs, imaging studies reviewed Right leg open wounds with cellulitis associated with swelling of the legs Started with intravenous daptomycin and Zosyn also will get MRI to rule out any osteomyelitis Will get wound care consult and also ID evaluation Reviewed with assessment and plan as outlined above by Ryanne Ray PA-C and take the full responsibility of the care Dr Josue Scanlon (1) Open wound of right foot Encounter type: initial encounter Qualified Code(s): S91.301A - Unspecified open wound, right foot, initial encounter (4) HTN (hypertension) Hypertension type: essential hypertension Qualified Code(s): I10 - Essential (primary) hypertension (6) Lumbar spinal stenosis Neurogenic claudication status: unspecified Qualified Code(s): M48.061 - Spinal stenosis, lumbar region without neurogenic claudication
[2024-07-24] MEDS: PIPERACILLIN/TAZOBACTAM 4.5 GM/100 ML BAG IV ONE (16:47)
--- NOTE | 2024-07-24 16:53 | Ultrasound Report ---
EXAM: US Duplex Right Lower Extremity Arteries INDICATION: History Reason For Study TECHNIQUE: Real-time duplex ultrasound scan of the right lower extremity arteries integrating B-mode two-dimensional vascular structure, Doppler spectral analysis and color flow Doppler imaging. COMPARISON: No relevant prior studies available. FINDINGS: Right common femoral artery: Peak systolic velocity 56 cm/s. No occlusion or significant stenosis on color flow and spectral Doppler imaging. Monophasic waveform. Right superficial femoral artery: Peak systolic velocity 58 cm/s. No occlusion or significant stenosis on color flow and spectral Doppler imaging. Monophasic waveform. Right popliteal artery: Peak systolic velocity 87 cm/s. No occlusion or significant stenosis on color flow and spectral Doppler imaging. Monophasic waveform. Right calf/foot arteries: Soft tissue edema limits assessment. Flow in the anterior tibial artery is 109 cm/s.. No occlusion or significant stenosis on color flow and spectral Doppler imaging. Monophasic waveform. Soft tissues: Subcutaneous soft tissue swelling noted. No organized collection identified IMPRESSION: There is relatively sluggish flow from the groin to the knee without segmental or focal stenotic lesion identified. Popliteal and calf arterial flow elevated to up to 109 cm/s likely reflects generalized less than 50% narrowing. Again, no segmental or defined stenotic area is identified sonographically. ACT 112: Negative or not required by law. Electronically signed by Nubia Blue 07-24-2024 4:52 PM
[2024-07-24] MEDS ORDERED: ONDANSETRON INJ 2 MG/ML 2 ML VIAL IV PRN (18:31)
[2024-07-24] MEDS: DAPTOmycin 500 MG in SYRINGE 0 ML IV SCH (20:03)
[2024-07-24] MEDS: ARTIFICIAL TEARS OP SCH (20:04)
[2024-07-24] MEDS: FUROSEMIDE 40 MG TAB PO SCH (20:05)
[2024-07-24] MEDS: GABAPENTIN 100 MG CAP PO SCH (20:05)
[2024-07-24] MEDS: METOPROLOL SUCC 50MG EXT REL TAB PO SCH (20:06)
[2024-07-24] MEDS: ACETAMINOPHEN 325 MG TAB PO PRN (20:12)
[2024-07-25 07:04] LABS: Hemoglobin 11.9 g/dl (14.0-18.0); Mean Corpuscular Hemoglobin 30.9 pg (25.0-34.0); Mean Corpuscular Volume 90.9 fL (80.0-100.0); Mean Platelet Volume 10.6 fL (9.4-12.4); Platelet Count 275 K/uL (130-400); RDW Coefficient of Variation 12.9 % (11.5-14.5); RDW Standard Deviation 42.5 fL (36.4-46.3); Red Blood Count 3.85 M/uL (4.70-6.10); White Blood Count 10.14 K/ul (4.8-10.8)
[2024-07-25 07:22] LABS: BUN Creatinine Ratio 19.7 (10-20); Creatinine Clr Calc Pharmacy 96.8 ml/min; Potassium 3.3 mmol/L (3.5-5.1)
[2024-07-25 08:13] LABS: Estimated Average Glucose 114 mg/dl; Hemoglobin A1C 5.6 % (4.5-5.6)
[2024-07-25] MEDS ORDERED: ATORVASTATIN 40 MG TAB PO SCH (09:00)
[2024-07-25] MEDS: ACETAMINOPHEN 325 MG TAB PO SCH (09:13)
[2024-07-25] MEDS: CHOLECALCIFEROL 25 MCG (1000 UNITS) TAB PO SCH (09:14)
[2024-07-25] MEDS: VITAMIN B COMPLEX TAB PO SCH (09:14)
[2024-07-25] MEDS: GABAPENTIN 100 MG CAP PO SCH (09:14)
[2024-07-25] MEDS: CEROVITE ADV FORMULA TAB PO SCH (09:14)
[2024-07-25] MEDS: MAGNESIUM OXIDE 400 MG TAB PO SCH (09:14)
[2024-07-25] MEDS: POLYETHYLENE (MIRALAX) 17 GM PACK PO SCH (09:18)
[2024-07-25] MEDS: DOCUSATE SODIUM 100 MG CAP PO SCH (09:18)
--- NOTE | 2024-07-25 12:54 | Podiatry Consultation ---
Date of Consultation July 25, 2024 Assessment & Plan (1) Abnormal ankle brachial index (MONA): (2) Cellulitis of right foot: (3) Open wound of right foot: Encounter type: initial encounter Qualified Code(s): S91.301A - Unspecified open wound, right foot, initial encounter Plan The patient was examined and evaluated. We discussed that this ulceration is likely due to his body habitus and his position with his first metatarsal bearing too much weight on his mattress. He insists that he is capable of rolling over, though on clinical exam he has mostly contracted and its position. We discussed that even if he can move he is not moving adequately to offload the pressuure to the first metatarsal, with even a plantar medial calcaneal deep tissue injury suspected at this time. There is no open wound or just some erythema consistent with the pressure and his positioning. We discussed that given his age and vascular state, he would benefit more from a enzymatic debridement rather than a sharp debridement at this time. He should continue antibiotics, likely for 2 weeks of oral antibiotics upon discharge. His living facility should be able to handle Santyl and dry sterile dressings upon discharge, otherwise he may require home health or assistance from his . Finally, he would benefit significantly from offloading boots. In order for inflatable prevalent boots was sent in, however, the facility currently only has waffle heel suspension boots. These will be adequate for the short term, though he should work on obtaining a better long-term offloading solution. No further intervention is planned at this time. We are happy to follow up with him on an outpatient basis in our office where we would should be able to transport him as well. Thank you for the consult, will look forward to helping out long-term with Mr. Green. History of Present Illness Reason for Consultation: Right foot ulceration Attending Physician: Carolina Toure MD History of Present Illness Patient seen at bedside. This is a pleasant, talkative patient who presents from his living facility in [place] with worsening right foot wound and swelling/infection. He regularly is seen by a digital account manager at his facility who noted this lesion to the right foot at his last visit several weeks ago, though it was only minor. Now, he has noticed enlarging black spot on the inside of the foot. He has some positional contractures or preferences because of pain associated with his spinal stenosis. He also states that he cannot see this part of his foot because of his posture. 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 He does also admit that after being in the hospital for 2-3 days, he is no longer sure what day it is and has noticed increased agitation overall. Finally, with the use of antibiotics, he has felt better in the last day or so. Allergies Allergy/AdvReac Type Severity Reaction Status Date / Time No Known Allergies Allergy Verified 07/24/24 13:14 Home Medications Medication Instructions Recorded Confirmed Type vit A 300 mcg-C 200 mg-E 27 1 tab PO QAM 10/08/18 07/24/24 History mg-lutein 2 mg and minerals tablet (Ocuvite with Lutein) cholecalciferol (vitamin D3) 25 25 mcg PO DAILY 03/02/23 07/24/24 History mcg (1,000 unit) capsule (Vitamin D3) gabapentin 100 mg capsule 100 mg PO DAILY 03/02/23 07/24/24 History gabapentin 100 mg capsule 200 mg PO HS 11/23/23 07/24/24 History B-complex with vitamin C 1 tab PO DAILY 07/24/24 07/24/24 History acetaminophen 650 mg 650 mg PO Q12H 07/24/24 07/24/24 History tablet,extended release atorvastatin 40 mg tablet 40 mg PO DAILY 07/24/24 07/24/24 History docusate sodium 50 mg capsule 50 mg PO DAILY 07/24/24 07/24/24 History furosemide 40 mg tablet 40 mg PO AMHS 07/24/24 07/24/24 History magnesium oxide 400 mg (241.3 mg 400 mg PO DAILY 07/24/24 07/24/24 History magnesium) tablet metoprolol succinate 50 mg 50 mg PO AMHS 07/24/24 07/24/24 History tablet,extended release 24 hr polyethylene glycol 3350 17 gram 17 g PO DAILY 07/24/24 07/24/24 History oral powder packet (Miralax) propylene glycol 0.6 % eye drops 1 drp OPB TID 07/24/24 07/24/24 History (Systane Balance) Patient History Medical History Abnormal computed tomography of abdomen and pelvis Acute hypokalemia Vomiting Leukocytosis SBO (small bowel obstruction) Incarcerated hernia Incarcerated ventral hernia Leg edema Symptomatic anemia Acute GI bleeding Umbilical hernia Hx of spinal stenosis Family History Mother CHF (congestive heart failure) Social History Smoking Status: Former smoker Tobacco Type: Cigarettes Second Hand Exposure: No; Do You Dip or Chew Tobacco: No; Tobacco Cessation Education Requested by Patient: No Hx Alcohol Use: Yes Alcohol type: beer Alcohol Intake Frequency Comment: 6-7 beers/day Hx Substance Use: No Preferred Language: Greek Communication Ability: Effective Ccna Required: No Beliefs That Will Affect Care: None marital status: Current Living Situation: Long-Term Current Living Situation Comment: [facility] current occupational status: retired Other Information That Helps Us Care for You: No Feels Safe at Home: Yes Safety Concerns: Feels Safe At This Time Physical Activity Frequency: Does not Exercise Assistive Devices: Walker Review of Systems Review of Systems: All systems reviewed & are unremarkable except as noted in HPI & below Constitutional: + malaise and + weakness; no fever, no c hills and no fatigue Eyes: no problem reported Ear, Nose, Mouth, Throat: no problem reported Respiratory: no problem reported Cardiovascular: + edema; no problem reported Gastrointestinal: no nausea, no vomiting and no problem reported Musculoskeletal: + radicular pain and + loss of height; n o problem reported Integumentary: + non-healing lesions, + skin ulcer, + w ounds and + erythema Neurologic: + loss of sensation, + numbness and + pa resthesia; no generalized weakness Psychiatric: no problem reported Physical Exam Physical Exam: Lower extremity focused exam: DP/PT pulses nonpalpable. CFT brisk to the digits. Large 3 cm eschar is noted to the medial aspect of the first metatarsal phalangeal joint. There is a small area of non-blanchable erythema to the plantar medial calcaneus. Both of these are in a weightbearing position due to his contracture at the hip and knees in his bed. He is able to move slightly, however, he does appear to have some soft tissue contracture leading to this positioning. There is pain on palpation of the eschar and pain on attempted range of motion of the first metatarsal phalangeal joint. There is crepitus on range of motion, though to the joint not to the soft tissue. There is erythema within a prior drawnout proximal margin for cellulitis. There is also edema bilaterally, though this is likely chronic in nature. Protective sensation is present though light touch sensation is diminished. Muscle strength is decreased bilaterally and atrophy is noted to the lower extremity. Constitutional: WD/WN, vitals as above + ill appearing and + obese Eyes: PERRL, conjunctivae normal, anicteric sclerae ENMT: external ear and nose normal, oropharynx normal Neck: trachea midline, no thyromegaly normal visual inspection Respiratory: normal respiratory effort; no respiratory distress Cardiovascular: Rate/Rhythm: regular rate and regular rhythm Chest (Breasts): Chest: normal inspection of chest Gastrointestinal (Abdomen): Inspection/Auscultation: abdomen normal to inspection Percussion/Palpation: + abdomen tender and abdomen soft Musculoskeletal: no cyanosis or clubbing, extremities motor strength 5/5 Head/Neck/Chest: normocephalic and head atraumatic Extremities: extremities normal to inspection Neurologic: awake; no focal motor deficits Psychiatric: A+Ox3, euthymic affect Results & Data Vital Signs (Past 12 Hours) Vital Signs Temp Pulse Resp BP Pulse Ox O2 Del Method 07/25/24 07:56 36.9 C 70 16 106/60 97 Room Air Diagnostic Findings Radiographs reveal no evidence of bone erosion/osteomyelitis. There is proliferation and exostosis formation around the 1st MTPJ consistent with hallux rigidus and increased pressure under the ulceration. Further, there is diffuse calcification noted to the pedal arteries
[2024-07-25] MEDS: COLLAGENASE OINT 30 GM TUBE EXT SCH (13:59)
--- NOTE | 2024-07-25 14:58 | Electrocardiogram Report ---
Test Reason : Blood Pressure : */* mmHG Vent. Rate : 66 BPM Atrial Rate : 66 BPM P-R Int : 234 ms QRS Dur : 136 ms QT Int : 462 ms P-R-T Axes : 60 22 10 degrees QTcB Int : 484 ms Poor data quality, interpretation may be adversely affected Sinus rhythm with 1st degree A-V block Right bundle branch block Abnormal ECG When compared with ECG of 03-Jul-2024 15:26, No significant change was found Confirmed by Walter Fuller ([id number]) on 07/25/2024 2:57:29 PM Referred By: Confirmed By: Walter Fuller
[2024-07-25] MEDS: POTASSIUM CHLORIDE CRTAB 20 MEQ TABCR PO SCH (15:45)
--- NOTE | 2024-07-25 16:43 | Hospitalist Progress Note ---
Date of Service July 25, 2024 Assessment & Plan (1) Open wound of right foot: (2) Cellulitis of right foot: (3) PAF (paroxysmal atrial fibrillation): (4) HTN (hypertension): (5) Dyslipidemia: (6) Lumbar spinal stenosis: (7) History of SIADH: Plan Mr. Green is a 83-year-old male with PMHx of paroxysmal atrial fibrillation, HTN, HLD, history of alcohol use, hyponatremia, SIADH, prostatitis, B12 deficiency and lumbar spinal stenosis who presents from [facility] for R great toe wound and heel wound which developed around the end of June. Patient with pedal edema. Reports concern the wound has worsened despite treatment with a course of Kelfex recently, finished a 10 day course on 07/22/24. Patient sent here from the wound clinic for further evaluation and after being there was sent to the ER due to concern for bone involvement. Patient is wheelchair bound. #Open foot wound, right foot #Cellulitis right foot - Failed outaptient abx Keflex x 10d course. Worsening erythema, wounds, and now with cellulitis moving up the leg. -Consult podiatry for debridement and wound consult - pt is following with outpatient wound clinic -Follow blood cultures for cellulitis, may continue IV daptomycin and Zosyn IV -CXR foot is negative for osteomyelitis -Podiatry evaluated patient -seemingly no plans for surgical evaluation -santyl and wound care pending -prevalon off loading boots -PT/OT eval, reportedly is nonambulatory and in wheelchair primarily from [facility] continue dapto, d/c zosyn, monitor improvement in am . #Paroxysmal A-fib #HTN #HLD -Rate controlled on metoprolol, NOT on anticoagulation continue to hold statin while on dapto #Lumbar spinal stenosis #Ambulatory dysfunction wheelchair bound 2/2 stenosis -Pain control prn continue gabapentin # SIADH -History of such, currently sodium is well-controlled on lasix continue lasix 3Constipation - Continue bowel regimen. DVT ppx: teds, scds Lines: PIV x 1 FEN/GI: Allow HH diet CODE: DNR/DNI Dispo: From home, likely to remain in the hospital x 1-2 days Admission and Anticipated Discharge Date Admission Date: July 24, 2024 Subjective NAEO reports feeling frustrated in hospital given his need to ask "so many questions" denies any pain, just discomfort due to positioning--which was resolved with aiding patient to get situated Denies fevers, chills or other acute concerns Physical Exam Constitutional: WD/WN, vitals as above Respiratory: normal respiratory effort, lungs clear to auscultation Cardiovascular: RRR, no murmur Musculoskeletal: pedal edema BLE, R>L, slight erythema of RLE Results & Data Results & Data Vital Signs (Past 12 Hours) Vital Signs Temp Pulse Resp BP Pulse Ox O2 Del Method 07/25/24 15:15 36.8 C 70 18 131/75 91 Room Air 07/25/24 07:56 36.9 C 70 16 106/60 97 Room Air Laboratory Results Short CBC 07/25/24 Range/Units 06:12 WBC 10.14 (4.8-10.8) K/ul Hgb 11.9 L (14.0-18.0) g/dl Hct 35.0 L (42.0-52.0) % Plt Count 275 (130-400) K/uL BMP 07/25/24 06:12 Sodium 139 Potassium 3.3 L Chloride 102 Carbon Dioxide 29 BUN 13 Creatinine 0.66 Glucose 99 Calcium 9.0 Medications Administered Home Medications Medication Instructions Recorded Confirmed Last Taken vit A 300 mcg-C 200 mg-E 27 1 tab PO QAM 10/08/18 07/24/24 08/29/23 mg-lutein 2 mg and minerals tablet (Ocuvite with Lutein) cholecalciferol (vitamin D3) 25 25 mcg PO DAILY 03/02/23 07/24/24 11/23/23 mcg (1,000 unit) capsule (Vitamin D3) gabapentin 100 mg capsule 100 mg PO DAILY 03/02/23 07/24/24 11/23/23 gabapentin 100 mg capsule 200 mg PO HS 11/23/23 07/24/24 Unknown B-complex with vitamin C 1 tab PO DAILY 07/24/24 07/24/24 Unknown acetaminophen 650 mg 650 mg PO Q12H 07/24/24 07/24/24 Unknown tablet,extended release atorvastatin 40 mg tablet 40 mg PO DAILY 07/24/24 07/24/24 Unknown docusate sodium 50 mg capsule 50 mg PO DAILY 07/24/24 07/24/24 Unknown furosemide 40 mg tablet 40 mg PO AMHS 07/24/24 07/24/24 Unknown magnesium oxide 400 mg (241.3 mg 400 mg PO DAILY 07/24/24 07/24/24 Unknown magnesium) tablet metoprolol succinate 50 mg 50 mg PO AMHS 07/24/24 07/24/24 Unknown tablet,extended release 24 hr polyethylene glycol 3350 17 gram 17 g PO DAILY 07/24/24 07/24/24 Unknown oral powder packet (Miralax) propylene glycol 0.6 % eye drops 1 drp OPB TID 07/24/24 07/24/24 Unknown (Systane Balance) Active Medications Generic Name Dose Route Start Last Admin Trade Name Freq PRN Reason Stop Dose Admin Acetaminophen 650 mg 07/24/24 18:31 07/24/24 20:12 Acetaminophen 325 Mg Tab PO 08/23/24 18:30 650 mg Q4H PRN Administration Moderate Pain (Scale 4, 5, 6) Acetaminophen 650 mg 07/25/24 08:00 07/25/24 15:29 Acetaminophen 325 Mg Tab PO 08/24/24 07:59 650 mg DAILY@0800,1400 HUMBLE Administration Artificial Tears 1 drops 07/24/24 21:00 07/25/24 15:30 Artificial Tears OP 08/23/24 20:59 1 drops TID HUMBLE Administration Collagenase 1 appln 07/25/24 13:00 07/25/24 13:59 Collagenase Oint 30 Gm Tube EXT 08/24/24 12:59 1 appln DAILY HUMBLE Administration Docusate Sodium 100 mg 07/25/24 09:00 07/25/24 11:30 Docusate Sodium 100 Mg Cap PO 08/24/24 08:59 Not Given DAILY HUMBLE Furosemide 40 mg 07/24/24 18:45 07/25/24 09:14 Furosemide 40 Mg Tab PO 08/23/24 18:44 40 mg BID17 HUMBLE Administration Gabapentin 100 mg 07/25/24 09:00 07/25/24 09:14 Gabapentin 100 Mg Cap PO 08/24/24 08:59 100 mg DAILY HUMBLE Administration Gabapentin 200 mg 07/24/24 21:00 07/24/24 20:05 Gabapentin 100 Mg Cap PO 08/23/24 20:59 200 mg HS HUMBLE Administration Daptomycin 500 mg/ Syringe 10 mls @ 5 mls/min 07/24/24 16:30 07/24/24 20:03 IV 07/26/24 16:29 5 mls/min Q24H HUMBLE Administration Protocol Magnesium Oxide 400 mg 07/25/24 09:00 07/25/24 09:14 Magnesium Oxide 400 Mg Tab PO 08/24/24 08:59 400 mg DAILY HUMBLE Administration Metoprolol Succinate 50 mg 07/24/24 21:00 07/25/24 09:14 Metoprolol Succ 50mg Ext Rel Tab PO 08/23/24 20:59 50 mg BID HUMBLE Administration Multivitamins/Minerals 1 tab 07/25/24 09:00 07/25/24 09:14 Cerovite Adv Formula Tab PO 08/24/24 08:59 1 tab QAM HUMBLE Administration Polyethylene Glycol 17 gm 07/25/24 09:00 07/25/24 11:30 Polyethylene (Miralax) 17 Gm Pack PO 08/24/24 08:59 Not Given DAILY HUMBLE Potassium Chloride 40 meq 07/25/24 15:00 07/25/24 15:45 Potassium Chloride Crtab 20 Meq Tabcr PO 07/26/24 09:01 40 meq BID HUMBLE Administration Vitamin B Complex 1 tab 07/25/24 09:00 07/25/24 09:14 Vitamin B Complex Tab PO 08/24/24 08:59 1 tab DAILY HUMBLE Administration Vitamin D 25 mcg 07/25/24 09:00 07/25/24 09:14 Cholecalciferol 25 Mcg (1000 Units) Tab PO 08/24/24 08:59 25 mcg DAILY HUMBLE Administration (1) Open wound of right foot Encounter type: initial encounter Qualified Code(s): S91.301A - Unspecified open wound, right foot, initial encounter (4) HTN (hypertension) Hypertension type: essential hypertension Qualified Code(s): I10 - Essential (primary) hypertension (6) Lumbar spinal stenosis Neurogenic claudication status: unspecified Qualified Code(s): M48.061 - S myra stenosis, lumbar region without neurogenic claudication
--- OUTSIDE RECORDS SUMMARY | 2024-07-25 20:32 | External Medical Summary | Summary of Care ---
Author Name Unknown Organization [facility] Address [address] [place] [address] Phone [phone] Care Team Providers Care Material Planning Analyst Name Role Phone Mitchell ROMAN MD, Jerry Cerda Primary Care Provider [phone] Reason for Visit * Reason Onset Date Comments Test Results 07/17/2024 Encounter Details Date Type Department Care Team (Late st Contact Info) Description 07/17/2024 Telephone Family Practice [facility] [address] [facility] [place] [address] Jerry Medrano III, MD [address] [place] [address] Test Results Allergies No known active allergiesdocumented as of this encounter (statuses as of 07/22/2024) Medications Propylene Glycol 0.6 % Ophthalmic Solution Instill 1 Drop into both eyes in the morning. Active Docusate Sodium 50 MG Oral Capsule Take by mouth 2 times a day. Active Potassium Chloride ER 20 MEQ Oral Tablet Extended Release Take 1 Tablet by mouth in the morning. 30 Tablet 5 11/13/19 24 Active Additional Information Patient not taking.Reported on 12/19/2023 Magnesium Oxide 400 MG Oral Tablet Take 1 Tablet by mouth in the morning and 1 Tablet before bedtime. 60 Tablet 5 11/13/19 24 Active Additional Information Patient not taking.Reported on 12/19/2023 Ocuvite-Lutein Oral Tablet Take 1 Tablet by mouth in the morning. 90 Tablet 3 12/03/19 24 Active Vitamin D-3 25 MCG (1000 UT) Oral Capsule Take 1 Capsule by mouth in the morning. 90 Capsule 3 12/03/19 24 Active Potassium Chloride Nallely ER 10 MEQ Oral Tablet Extended Release Take 1 Tablet by mouth in the morning and 1 Tablet before bedtime. 180 Tablet 3 12/19/19 24 Active Atorvastatin Calcium 40 MG Oral Tablet (Lipitor)Indica tions:Dyslipide mak, goal to be determined TAKE 1 TABLET BY MOUTH EVERY DAY 90 Tablet 1 02/20/20 24 Active Metoprolol Succinate ER 50 MG Oral Tablet Extended Release 24 Hour (Toprol XL)Indications: HTN, goal below 150/90 Take 1 Tablet by mouth in the morning and 1 Tablet before bedtime. 180 Tablet 1 04/17/20 24 Active Ketoconazole 2 % External CreamIndication s:Seborrheic dermatitis Apply topically to affected area 2 times a day. 60 g 05/28/20 24 Active Cyanocobalamin 1000 MCG Oral Tablet ([facility] Vitamin B-12) Take 1 Tablet by mouth in the morning. 100 Tablet 3 05/28/20 24 Active Acetaminophen ER 650 MG Oral Tablet Extended Release (Tylenol 8 Hour Arthritis Pain) 2 tabs daily am 100 Tablet 3 05/28/20 24 Active Acetaminophen ER 650 MG Oral Tablet Extended Release (Tylenol 8 Hour Arthritis Pain) 1 tab in am 1 tab at 2 pm regularly may have 1 at bedtime if needed 100 Tablet 3 05/28/20 24 Active Gabapentin 100 MG Oral Capsule (Neurontin)Cristel cations:Spinal stenosis of lumbar region, unspecified whether neurogenic claudication present Takes by mouth twice daily - 100 mg in AM and 200 mg at bedtime 270 Capsule 06/20/20 24 Active Furosemide 40 MG Oral Tablet (Lasix) Take 1 Tablet by mouth in the morning and 1 Tablet before bedtime. 60 Tablet 5 07/21/20 24 Active Furosemide 40 MG Oral Tablet (Lasix)Indicati ons:Hyponatremi a TAKE 1 TABLET BY MOUTH IN MORNING 90 Tablet 05/20/20 24 2023 Discontinued Cephalexin 500 MG Oral Capsule (Keflex) Take 1 Capsule by mouth in the morning and 1 Capsule at noon and 1 Capsule before bedtime. Do all this for 10 days. 30 Capsule 07/08/20 24 2023 Discontinued Furosemide 40 MG Oral Tablet (Lasix) Take 1 Tablet by mouth in the morning and 1 Tablet before bedtime. 2023 Discontinued(R efill) documented as of this encounter (statuses as of 07/22/2024) Active Problems Problem Noted Date Diagnosed Date B12 deficiency 02/05/2024 Hyponatremia 09/20/2023 SIADH (syndrome of inappropriate ADH production) 09/20/2023 Alcohol use 09/20/2023 Esophageal obstruction 09/15/2019 PAF (paroxysmal atrial fibrillation) 08/14/2019 Dyslipidemia 07/17/2018 Lumbar spinal stenosis 09/01/2013 HTN, goal below 140/90 documented as of this encounter (statuses as of 07/22/2024) Resolved Problems Problem Noted Date Diagnosed Date [...] weight or BMI > 40) 02/15/2010 01/30/2017 Overview (11/22/2015): Per Obesity Protocol, #19 ICD-10 update of inactive term ADVANCE DIRECTIVE INFORMATION 01/06/2005 07/07/2024 Overview (01/06/2005): No, Advance Directive brochure offered , patient declined. Chronic prostatitis 07/25/20 14 Umbilical hernia 07/17/2018 SPRAIN LUMBOSACRAL 4 documented as of this encounter (statuses as of 07/22/2024) Immunizations Name Administration Dates Next Due COVID-19 mRNA, LNP-s, No Pre serve, 2-Dose Series (Huan Xiong) 11/03/2020,10/13/2020 Influenza, Whole Virus 07/04/1999,1997,06/03/1997,06/03 PPD 03/21/2023 Pneumococcal Conjugate Vacc, 13 Valent (Prevnar) 01/27/2015 Pneumococcal Polysaccharide PPV23 (Pneumovax) 02/09/2017,07/21/2003 Seasonal Influenza Vac., MDV , IM, 0.5 mL (Fluzone) 05/20/2014,05/17/2013,05/23/2012,06/06,06/07/2010,09/10/2009,06/23/2008 ,06/04/2007,07/04/2006,06/17/2005,07/04 Seasonal Influenza, High Dos e, Trivalent, PF, IM (Fluzone HD) 05/28/2024 Seasonal Influenza, PF, 6 M & above, IM , (FluLaval or Fluzone) 05/18/2020,06/03/2018,05/24/2017 Seasonal Influenza, Quadriva lent Hd (Fluzone Hd) 07/18/2023,07/01/2021 Seasonal Influenza, Quadriva lent, No Preserve, IM 05/30/2016,07/22/2015 Seasonal Influenza, Trivalen t, Adjuvanted, 65+ YRS, PF, (Fluad) 06/27/2019 TD - Tetanus/Diptheria (ADULT) 2007 TDAP [...] Recorded Sex Assigned at Not on file Legal Sex Male 6:10 AM EST Gender Identity Not on file Sexual Orientation Not on file documented as of this encounter Miscellaneous Notes * Telephone Encounter - Jerry Medrano III, MD - 07/22/2024 8:45 AM EST Call please needs CBC * Telephone Encounter - Landy Angelo LPN - 07/21/2024 1:28 PM EST Order faxed confirmation received * Telephone Encounter - Bran Roca MD - 07/21/2024 12:55 PM EST Signed and given to Landy * Addendum Note - Bran Roca MD - 07/21/2024 12:23 PM ESTAddended by: BRAN ROCA on: 07/21/2024 12:23 PM Modules accepted: Orders * Telephone Encounter - Ashley De Leon CMA - 07/18/2024 4:14 PM EST Contacted [facility], they just need order faxed from us to continue the lasix bid with provider's signature. * Telephone Encounter - Bran Roca MD - 07/18/2024 2:47 PM EST Patient needs to continue on Lasix 40mg BID. I updated his medication list. Can someone contact [facility] and see what they need from us? * Telephone Encounter - Alisha Strong LPN - 07/18/2024 1:46 PM EST Patients is calling. Patient was to take lasix 40 mg twice a day for 10 days. That time is up.Now [facility] needs another order. Patient's edema has improved some. believes he still needs to take the lasix twice a day, but she can't give [facility] the order. is asking that we call [facility] and give them an order for twice a day lasix. Please advise. * Telephone Encounter - Angie Antunez PHARM Tech - 07/18/2024 1:20 PM EST [facility] nurse calling to follow up on advice regarding pt's lasix. Current dose is furosemide 40mg and they had an order for 10 days. Pt's states she was giving him twice a day. To continue medication for pt they need a new medicine order and current dose pcp wants him on faxed to [phone]. Please advise. Thank you, Angie Antunez [facility] Post Office Manager [facility] 07/18/2024, 1:21 PM * Telephone Encounter - Juan José Fonseca LPN - 07/18/2024 10:35 AM EST Patient Karely aware and verbalized understanding. Patient denies any blood in stool or dark in color or other blood loss. Patient was seen in [facility] on 07/03 due to swelling and they increased Lasix 40 mg to BID for 10 days (order was suppose to be completed on 06/12). He had ED F/U on on 07/15 Dr. Roca due to BLE swelling and in her OV notes it states to continue Lasix 40 MG daily, but states she has been giving him 40 MG BID since appt. He still has BLE swelling, but improving slowly. Patient Refuses to wear tahir hose due to causes increase pain. They are trying to keep his legs elevated. Has wound care appt 07/24 asking if she should continue Lasix 40 MG Daily or BID? GFR >90 Please advice. * Telephone Encounter - Marissa Alva LPN - 07/17/2024 1:55 PM EST Left message for patient to return call. Please transfer patient to phone nurse to review message from Dr. Medrano below. I have also sent him a Swing[employer]ot message. * Telephone Encounter - Jerry Medrano III, MD - 07/17/2024 12:44 PM EST Call him please studies now show iron-deficiency needs CBC has a been any change in color of his bowel movements any bleeding any melena? documented in this encounter Plan of Treatment Upcoming Encounters Date Type Department Care Team (Late st Contact Info) Description 01/02/2025 11:40 AM EDT Office Visit Family Practice [facility] [place] [address] [place] [address] Jerry Medrano III, MD [address] [facility] [place] [address] Scheduled Procedures Name Priority Associated Diagnoses Date/Ti me COLONOSCOPY FLEXIBLE PROXIMAL DIAGNOSTIC Recall History of colon polyps Health Maintenance Due Date Last Done Comments Adult Wellness Visit 2004 DTap/Tdap Vaccines (2 - Td or Tdap) 10/11/2022 10/11/2012, 10/11/2012, 2007 Depression Screening 12/29/2022 12/29/2021 COVID-19 Vaccine ( season) 2024 11/03/2020, 11/03/2020, 10/13/2020, Additional history exists Albumin/Creatinine Ratio 07/03/2025 07/03/2022 Pneumococcal Vaccine: 65+ Years Completed 02/09/2017, 01/27/2015, 07/21/2003 Colonoscopy Discontinued 07/22/2019, 07/04, 10/10/2018 Zoster Vaccines Completed 10/25/2021, 10/2018, 07/09/2018, Additional history exists Influenza Vaccine (FLU shot) Completed 05/28/2024, 07/18/2023, 07/01/2021, Additional history exists HPV (Gardasil) Vaccine Aged Out No lo nger eligible based on patient's age to complete this topic Hepatitis B Vaccine Aged Out No longe r eligible based on patient's age to complete this topic MENINGOCOCCAL (MENACTRA/MENVEO) Aged Out No longer eligible based on patient's age to complete this topic documented as of this encounter Medical Devices Not on filedocumented as of this encounter Visit Diagnoses Diagnosis Hyponatremia Hyposmolality and/or hyponatremia documented in this encounter Care Teams Material Planning Analyst Relationship Specialty Start Date End Date Jerry Medrano III, MD [address] [facility] [place] [address] PCP - General Family Medicine 10/21/18 documented as of this encounter
--- OUTSIDE RECORDS SUMMARY | 2024-07-25 20:32 | External Medical Summary | Summary of Care ---
Author Name Unknown Organization [facility] Address [address] [place] [address] Phone [phone] Care Team Providers Care Cordage Sales Representative Name Role Phone Mitchell ROMAN MD, Jerry Cerda Primary Care Provider [phone] Encounter Details Date Type Department Care Team (Late st Contact Info) Description 07/23/2024 Orders Only Family Practice [facility] [address] [facility] [address] Jerry Medrano III, MD [address] [facility] [place] [address] Allergies No known active allergiesdocumented as of this encounter (statuses as of 07/23/2024) Medications Propylene Glycol 0.6 % Ophthalmic Solution Instill 1 Drop into both eyes in the morning. Active Docusate Sodium 50 MG Oral Capsule Take by mouth 2 times a day. Active Potassium Chloride ER 20 MEQ Oral Tablet Extended Release Take 1 Tablet by mouth in the morning. 30 Tablet 5 4 Active Additional Information Patient not taking.Reported on 12/19/2023 Magnesium Oxide 400 MG Oral Tablet Take 1 Tablet by mouth in the morning and 1 Tablet before bedtime. 60 Tablet 5 4 Active Additional Information Patient not taking.Reported on 12/19/2023 Ocuvite-Lutein Oral Tablet Take 1 Tablet by mouth in the morning. 90 Tablet 3 4 Active Vitamin D-3 25 MCG (1000 UT) Oral Capsule Take 1 Capsule by mouth in the morning. 90 Capsule 3 4 Active Potassium Chloride Nallely ER 10 MEQ Oral Tablet Extended Release Take 1 Tablet by mouth in the morning and 1 Tablet before bedtime. 180 Tablet 3 4 Active Atorvastatin Calcium 40 MG Oral Tablet (Lipitor)Indicat ions:Dyslipidemi a, goal to be determined TAKE 1 TABLET BY MOUTH EVERY DAY 90 Tablet 1 4 Active Metoprolol Succinate ER 50 MG Oral Tablet Extended Release 24 Hour (Toprol XL)Indications:H TN, goal below 150/90 Take 1 Tablet by mouth in the morning and 1 Tablet before bedtime. 180 Tablet 1 4 Active Ketoconazole 2 % External CreamIndications :Seborrheic dermatitis Apply topically to affected area 2 times a day. 60 g 4 Active Cyanocobalamin 1000 MCG Oral Tablet ([facility] Vitamin B-12) Take 1 Tablet by mouth in the morning. 100 Tablet 3 4 Active Acetaminophen ER 650 MG Oral Tablet Extended Release (Tylenol 8 Hour Arthritis Pain) 2 tabs daily am 100 Tablet 3 4 Active Acetaminophen ER 650 MG Oral Tablet Extended Release (Tylenol 8 Hour Arthritis Pain) 1 tab in am 1 tab at 2 pm regularly may have 1 at bedtime if needed 100 Tablet 3 4 Active Gabapentin 100 MG Oral Capsule (Neurontin)Indic ations:Spinal stenosis of lumbar region, unspecified whether neurogenic claudication present Takes by mouth twice daily - 100 mg in AM and 200 mg at bedtime 270 Capsule 4 Active Furosemide 40 MG Oral Tablet (Lasix) Take 1 Tablet by mouth in the morning and 1 Tablet before bedtime. 60 Tablet 5 4 Active documented as of this encounter (statuses as of 07/23/2024) Active Problems Problem Noted Date Diagnosed Date B12 deficiency 02/05/2024 Hyponatremia 09/20/2023 SIADH (syndrome of inappropriate ADH production) 09/20/2023 Alcohol use 09/20/2023 Esophageal obstruction 09/15/2019 PAF (paroxysmal atrial fibrillation) 08/14/2019 Dyslipidemia 07/17/2018 Lumbar spinal stenosis 09/01/2013 HTN, goal below 140/90 documented as of this encounter (statuses as of 07/23/2024) Resolved Problems Problem Noted Date Diagnosed Date [...] as of this encounter (statuses as of 07/23/2024) Immunizations Name Administration Dates Next Due COVID-19 mRNA, LNP-s, No Pre serve, 2-Dose Series (Pfizer) 11/03/2020,10/13/2020 PPD 03/21/2023 Pneumococcal Conjugate Vacc, 13 Valent (Prevnar) 01/27/2015 Pneumococcal Polysaccharide PPV23 (Pneumovax) 02/09/2017 Seasonal Influenza Vac., MDV , IM, 0.5 mL (Fluzone) 05/20/2014,05/17/2013,05/23/2012,06/06,06/07/2010,09/10/2009,06/23/2008 ,06/04/2007,07/04/2006 Seasonal Influenza, High Dos e, Trivalent, PF, [...] 11:40 AM EDT Office Visit [facility] Practice [facility] [address] [place] [address] [address] Jerry Medrano III, MD [address] [place] [address] Scheduled Procedures Name Priority Associated Diagnoses Date/Ti me COLONOSCOPY FLEXIBLE PROXIMAL DIAGNOSTIC Recall History of colon polyps Health Maintenance Due Date Last Done Comments Adult Wellness Visit 2004 DTap/Tdap Vaccines (2 - Td or Tdap) 10/11/2022 10/11/2012, 10/11/2012, 2007 Depression Screening 12/29/2022 12/29/2021 COVID-19 Vaccine ( - season) 2024 11/03/2020, 11/03/2020, 10/13/2020, Additional history exists Albumin/Creatinine Ratio 07/03/2025 07/03/2022 Pneumococcal Vaccine: 65+ Years Completed 02/09/2017, 01/27/2015, 07/21/2003 Colonoscopy Discontinued 07/22/2019, 07/04, 10/10/2018 Zoster Vaccines Completed 10/25/2021, 04/0 10/2018, 07/09/2018, [...] Procedure Name Priority Date/Time Associated Diagnosis Comments CBC Routine 07/22/2024 documented in this encounter Results * (ABNORMAL) CBC (07/22/2024) HGB 12.5(A) 14.0 - 18.0 G/DL OUTSIDE LAB (SEE SCANNED REPORT) Blood Venous blood specimen / Unknown 07/22/2024 us Jerry Medrano III, MD LAB BLOOD ORDERABLES Final Result OUTSIDE LAB (SEE SCANNED REPORT) documented in this encounter Care Teams Cordage Sales Representative Relationship Specialty Start Date End Date Jerry Medrano III, MD [address] [place] [address] PCP - General Family Medicine 10/21/18 documented as of this encounter
[2024-07-26 06:27] LABS: Hematocrit (blood only) 36.9 % (42.0-52.0); Hemoglobin 12.6 g/dl (14.0-18.0); Mean Corpuscular Hemoglobin 30.8 pg (25.0-34.0); Mean Corpuscular Hgb Conc 34.1 g/dL (32.0-36.0); Mean Corpuscular Volume 90.2 fL (80.0-100.0); Mean Platelet Volume 10.2 fL (9.4-12.4); Platelet Count 292 K/uL (130-400); RDW Coefficient of Variation 13.3 % (11.5-14.5); Red Blood Count 4.09 M/uL (4.70-6.10); White Blood Count 11.11 K/ul (4.8-10.8)
[2024-07-26 06:42] LABS: BUN Creatinine Ratio 19.2 (10-20); Calcium 9.2 mg/dl (8.6-10.3); Creatinine Clr Calc Pharmacy 87.5 ml/min; Potassium 3.6 mmol/L (3.5-5.1)
[2024-07-26] MEDS: CEFEPIME 2000MG 2,000 MG/20 ML SYR IV SCH (08:40)
--- NOTE | 2024-07-26 14:57 | Hospitalist Progress Note ---
Date of Service July 26, 2024 Assessment & Plan (1) Open wound of right foot: (2) Cellulitis of right foot: (3) PAF (paroxysmal atrial fibrillation): (4) HTN (hypertension): (5) Dyslipidemia: (6) Lumbar spinal stenosis: (7) History of SIADH: Plan Mr. Green is a 83-year-old male with PMHx of paroxysmal atrial fibrillation, HTN, HLD, history of alcohol use, hyponatremia, SIADH, prostatitis, B12 deficiency and lumbar spinal stenosis who presents from [facility] for R great toe wound and heel wound which developed around the end of June. Patient with pedal edema and erythema, improved from day prior. Patient sent here from the wound clinic for further evaluation and after being there was sent to the ER due to concern for bone involvement. Patient is wheelchair bound. #Open foot wound, right foot #Cellulitis right foot - Failed outpatient abx Keflex x 10d course. Worsening erythema, wounds, and now with cellulitis moving up the leg. -Consult podiatry for debridement and wound consult - pt is following with outpatient wound clinic -Follow blood cultures for cellulitis, may continue IV daptomycin and Zosyn IV -CXR foot is negative for osteomyelitis -Podiatry evaluated patient -seemingly no plans for surgical evaluation -santyl and wound care ongoing, will need for wound care assistance -prevalon off loading boots -PT/OT jerald, reportedly is nonambulatory and in wheelchair primarily from [facility] continue broad abx, will likely plan for po with doxy/augmentin upon d/c since failure with keflex #Paroxysmal A-fib #HTN #HLD -Rate controlled on metoprolol, NOT on anticoagulation continue to hold statin while on dapto #Lumbar spinal stenosis #Ambulatory dysfunction wheelchair bound 2/2 stenosis -Pain control prn continue gabapentin # SIADH -History of such, currently sodium is well-controlled on lasix continue lasix 3Constipation - Continue bowel regimen. DVT ppx: teds, scds Lines: PIV x 1 FEN/GI: Allow HH diet CODE: DNR/DNI Dispo: From home, likely to remain in the hospital x 1-2 days Spent 55 minutes at bedside in total in morning and afternoon with at bedside answering questions and reassuring patient about plan I spent a total of 75 minutes coordinating, documenting, and providing care for this patient excluding time spent in the performance of separately billed services. Admission and Anticipated Discharge Date Admission Date: July 24, 2024 Subjective NAEO doing much better this am and afternoon, pleased with reduction in BLE swelling, however, suspected to be related mostly impart to laying in bed/elevated Denies any pain outside of chronic discomfort with shifting and adjusments Physical Exam Constitutional: WD/WN, vitals as above Respiratory: normal respiratory effort, lungs clear to auscultation Cardiovascular: RRR Skin: BLE pedal edema, improved from day prior. RLE erythema of foot improved notably Results & Data Results & Data Vital Signs (Past 12 Hours) Vital Signs Temp Pulse Resp BP Pulse Ox O2 Del Method 07/26/24 14:05 36.9 C 76 17 124/72 93 Room Air 07/26/24 09:26 36.5 C 82 17 109/62 92 Room Air Laboratory Results Short CBC 07/26/24 Range/Units 05:38 WBC 11.11 H (4.8-10.8) K/ul Hgb 12.6 L (14.0-18.0) g/dl Hct 36.9 L (42.0-52.0) % Plt Count 292 (130-400) K/uL BMP 07/26/24 05:38 Sodium 138 Potassium 3.6 Chloride 103 Carbon Dioxide 27 BUN 14 Creatinine 0.73 Glucose 97 Calcium 9.2 Medications Administered Home Medications Medication Instructions Recorded Confirmed Last Taken vit A 300 mcg-C 200 mg-E 27 1 tab PO QAM 10/08/18 07/24/24 08/29/23 mg-lutein 2 mg and minerals tablet (Ocuvite with Lutein) cholecalciferol (vitamin D3) 25 25 mcg PO DAILY 03/02/23 07/24/24 11/23/23 mcg (1,000 unit) capsule (Vitamin D3) gabapentin 100 mg capsule 100 mg PO DAILY 03/02/23 07/24/24 11/23/23 gabapentin 100 mg capsule 200 mg PO HS 11/23/23 07/24/24 Unknown B-complex with vitamin C 1 tab PO DAILY 07/24/24 07/24/24 Unknown acetaminophen 650 mg 650 mg PO Q12H 07/24/24 07/24/24 Unknown tablet,extended release atorvastatin 40 mg tablet 40 mg PO DAILY 07/24/24 07/24/24 Unknown docusate sodium 50 mg capsule 50 mg PO DAILY 07/24/24 07/24/24 Unknown furosemide 40 mg tablet 40 mg PO AMHS 07/24/24 07/24/24 Unknown magnesium oxide 400 mg (241.3 mg 400 mg PO DAILY 07/24/24 07/24/24 Unknown magnesium) tablet metoprolol succinate 50 mg 50 mg PO AMHS 07/24/24 07/24/24 Unknown tablet,extended release 24 hr polyethylene glycol 3350 17 gram 17 g PO DAILY 07/24/24 07/24/24 Unknown oral powder packet (Miralax) propylene glycol 0.6 % eye drops 1 drp OPB TID 07/24/24 07/24/24 Unknown (Systane Balance) Active Medications Generic Name Dose Route Start Last Admin Trade Name Freq PRN Reason Stop Dose Admin Acetaminophen 650 mg 07/24/24 18:31 07/25/24 19:49 Acetaminophen 325 Mg Tab PO 08/23/24 18:30 650 mg Q4H PRN Administration Moderate Pain (Scale 4, 5, 6) Acetaminophen 650 mg 07/25/24 08:00 07/26/24 14:15 Acetaminophen 325 Mg Tab PO 08/24/24 07:59 650 mg DAILY@0800,1400 HUMBLE Administration Artificial Tears 1 drops 07/24/24 21:00 07/26/24 14:15 Artificial Tears OP 08/23/24 20:59 1 drops TID HUMBLE Administration Collagenase 1 appln 07/25/24 13:00 07/26/24 10:15 Collagenase Oint 30 Gm Tube EXT 08/24/24 12:59 1 appln DAILY HUMBLE Administration Docusate Sodium 100 mg 07/25/24 09:00 07/26/24 08:41 Docusate Sodium 100 Mg Cap PO 08/24/24 08:59 100 mg DAILY HUMBLE Administration Furosemide 40 mg 07/24/24 18:45 07/26/24 08:42 Furosemide 40 Mg Tab PO 08/23/24 18:44 40 mg [id number] HUMBLE Administration Gabapentin 100 mg 07/25/24 09:00 07/26/24 08:41 Gabapentin 100 Mg Cap PO 08/24/24 08:59 100 mg DAILY HUMBLE Administration Gabapentin 200 mg 07/24/24 21:00 07/25/24 19:48 Gabapentin 100 Mg Cap PO 12/21/24 20:59 200 mg HS HUMBLE Administration Daptomycin 500 mg/ Syringe 10 mls @ 5 mls/min 07/24/24 16:30 07/25/24 16:55 IV 07/26/24 16:29 5 mls/min Q24H HUMBLE Administration Protocol Cefepime HCl 2,000 mg in 20 mls @ 5 mls/min 07/26/24 08:00 07/26/24 08:40 Maxipime 2000mg IV 08/02/24 07:59 5 mls/min Q12H HUMBLE Administration Protocol Magnesium Oxide 400 mg 07/25/24 09:00 07/26/24 08:42 Magnesium Oxide 400 Mg Tab PO 08/24/24 08:59 400 mg DAILY HUMBLE Administration Metoprolol Succinate 50 mg 07/24/24 21:00 07/26/24 08:42 Metoprolol Succ 50mg Ext Rel Tab PO 08/23/24 20:59 50 mg BID HUMBLE Administration Multivitamins/Minerals 1 tab 07/25/24 09:00 07/26/24 08:41 Cerovite Adv Formula Tab PO 08/24/24 08:59 1 tab QAM HUMBLE Administration Polyethylene Glycol 17 gm 07/25/24 09:00 07/26/24 08:42 Polyethylene (Miralax) 17 Gm Pack PO 08/24/24 08:59 Not Given DAILY HUMBLE Vitamin B Complex 1 tab 07/25/24 09:00 07/26/24 08:41 Vitamin B Complex Tab PO 08/24/24 08:59 1 tab DAILY HUMBLE Administration Vitamin D 25 mcg 07/25/24 09:00 07/26/24 08:41 Cholecalciferol 25 Mcg (1000 Units) Tab PO 08/24/24 08:59 25 mcg DAILY HUMBLE Administration (1) Open wound of right foot Encounter type: initial encounter Qualified Code(s): S91.301A - Unspecified open wound, right foot, initial encounter (4) HTN (hypertension) Hypertension type: essential hypertension Qualified Code(s): I10 - Essential (primary) hypertension (6) Lumbar spinal stenosis Neurogenic claudication status: unspecified Qualified Code(s): M48.061 - Spinal stenosis, lumbar region without neurogenic claudication
[2024-07-27 07:12] LABS: Hematocrit (blood only) 37.3 % (42.0-52.0); Hemoglobin 12.5 g/dl (14.0-18.0); Mean Corpuscular Hemoglobin 30.7 pg (25.0-34.0); Mean Corpuscular Hgb Conc 33.5 g/dL (32.0-36.0); Mean Corpuscular Volume 91.6 fL (80.0-100.0); Mean Platelet Volume 10.6 fL (9.4-12.4); Platelet Count 287 K/uL (130-400); RDW Coefficient of Variation 13.3 % (11.5-14.5); RDW Standard Deviation 44.9 fL (36.4-46.3); Red Blood Count 4.07 M/uL (4.70-6.10); White Blood Count 10.57 K/ul (4.8-10.8)
[2024-07-27 07:36] LABS: BUN Creatinine Ratio 19.4 (10-20); Calcium 9.2 mg/dl (8.6-10.3); Creatinine Clr Calc Pharmacy 88.7 ml/min; Potassium 3.6 mmol/L (3.5-5.1)
--- NOTE | 2024-07-27 14:18 | Hospitalist Progress Note ---
Date of Service July 27, 2024 Assessment & Plan (1) Open wound of right foot: (2) Cellulitis of right foot: (3) PAF (paroxysmal atrial fibrillation): (4) HTN (hypertension): (5) Dyslipidemia: (6) Lumbar spinal stenosis: (7) History of SIADH: Plan Mr. Green is a 83-year-old male with PMHx of paroxysmal atrial fibrillation, HTN, HLD, history of alcohol use, hyponatremia, SIADH, prostatitis, B12 deficiency and lumbar spinal stenosis who presents from [facility] for R great toe wound and heel wound which developed around the end of June. = Patient sent here from the wound clinic for further evaluation and after being there was sent to the ER due to concern for bone involvement. Patient is wheelchair bound. Patient with notable improvement in swelling and erythema of RLE. likley discharge to home with oral course of abx with HH for aid in wound care. #Open foot wound, right foot #Cellulitis right foot - Failed outpatient abx Keflex x 10d course. Worsening erythema, wounds, and now with cellulitis moving up the leg. -Consult podiatry for debridement and wound consult - pt is following with outpatient wound clinic -Follow blood cultures for cellulitis, may continue IV daptomycin and Zosyn IV -CXR foot is negative for osteomyelitis -Podiatry evaluated patient -seemingly no plans for surgical evaluation -santyl and wound care ongoing, will need for wound care assistance -prevalon off loading boots -PT/OT jerald, reportedly is nonambulatory and in wheelchair primarily from [facility] continue broad abx, will likely plan for po with doxy/augmentin upon d/c since failure with keflex #Paroxysmal A-fib #HTN #HLD -Rate controlled on metoprolol, NOT on anticoagulation continue to hold statin while on dapto #Lumbar spinal stenosis #Ambulatory dysfunction wheelchair bound 2/2 stenosis -Pain control prn continue gabapentin trial myoflex for muscle aches # SIADH -History of such, currently sodium is well-controlled on lasix continue lasix #Constipation - Continue bowel regimen. DVT ppx: teds, scds Lines: PIV x 1 FEN/GI: Allow HH diet CODE: DNR/DNI Dispo: From home, likely to remain in the hospital x 1-2 days Admission and Anticipated Discharge Date Admission Date: July 24, 2024 Subjective NAEO Reports some mild cramping in legs, but otherwise feels good Denies fevers chills or other acute concerns Physical Exam Constitutional: WD/WN, vitals as above Respiratory: normal respiratory effort, lungs clear to auscultation Cardiovascular: RRR Skin: noted improvement in erythema and swelling of RLE Results & Data Results & Data Vital Signs (Past 12 Hours) Vital Signs Temp Pulse Resp BP Pulse Ox O2 Del Method 07/27/24 13:32 36.5 C 68 18 111/70 94 Room Air 07/27/24 09:13 94 Room Air 07/27/24 07:58 36.3 C L 70 17 126/69 91 Room Air Laboratory Results Short CBC 07/27/24 Range/Units 06:03 WBC 10.57 (4.8-10.8) K/ul Hgb 12.5 L (14.0-18.0) g/dl Hct 37.3 L (42.0-52.0) % Plt Count 287 (130-400) K/uL BMP 07/27/24 06:03 Sodium 140 Potassium 3.6 Chloride 104 Carbon Dioxide 28 BUN 14 Creatinine 0.72 Glucose 104 H Calcium 9.2 Medications Administered Home Medications Medication Instructions Recorded Confirmed Last Taken vit A 300 mcg-C 200 mg-E 27 1 tab PO QAM 10/08/18 07/24/24 08/29/23 mg-lutein 2 mg and minerals tablet (Ocuvite with Lutein) cholecalciferol (vitamin D3) 25 25 mcg PO DAILY 03/02/23 07/24/24 11/23/23 mcg (1,000 unit) capsule (Vitamin D3) gabapentin 100 mg capsule 100 mg PO DAILY 03/02/23 07/24/24 11/23/23 gabapentin 100 mg capsule 200 mg PO HS 11/23/23 07/24/24 Unknown B-complex with vitamin C 1 tab PO DAILY 07/24/24 07/24/24 Unknown acetaminophen 650 mg 650 mg PO Q12H 07/24/24 07/24/24 Unknown tablet,extended release atorvastatin 40 mg tablet 40 mg PO DAILY 07/24/24 07/24/24 Unknown docusate sodium 50 mg capsule 50 mg PO DAILY 07/24/24 07/24/24 Unknown furosemide 40 mg tablet 40 mg PO AMHS 07/24/24 07/24/24 Unknown magnesium oxide 400 mg (241.3 mg 400 mg PO DAILY 07/24/24 07/24/24 Unknown magnesium) tablet metoprolol succinate 50 mg 50 mg PO AMHS 07/24/24 07/24/24 Unknown tablet,extended release 24 hr polyethylene glycol 3350 17 gram 17 g PO DAILY 07/24/24 07/24/24 Unknown oral powder packet (Miralax) propylene glycol 0.6 % eye drops 1 drp OPB TID 07/24/24 07/24/24 Unknown (Systane Balance) Active Medications Generic Name Dose Route Start Last Admin Trade Name Freq PRN Reason Stop Dose Admin Acetaminophen 650 mg 07/24/24 18:31 07/27/24 06:38 Acetaminophen 325 Mg Tab PO 08/23/24 18:30 650 mg Q4H PRN Administration Moderate Pain (Scale 4, 5, 6) Acetaminophen 650 mg 07/25/24 08:00 07/27/24 09:38 Acetaminophen 325 Mg Tab PO 08/24/24 07:59 650 mg DAILY@0800,1400 HUMBLE Administration Artificial Tears 1 drops 07/24/24 21:00 07/27/24 09:43 Artificial Tears OP 08/23/24 20:59 1 drops TID HUMBLE Administration Collagenase 1 appln 07/25/24 13:00 07/27/24 06:44 Collagenase Oint 30 Gm Tube EXT 08/24/24 12:59 1 appln DAILY HUMBLE Administration Docusate Sodium 100 mg 07/25/24 09:00 07/27/24 09:39 Docusate Sodium 100 Mg Cap PO 08/24/24 08:59 100 mg DAILY HUMBLE Administration Furosemide 40 mg 07/24/24 18:45 07/27/24 09:40 Furosemide 40 Mg Tab PO 08/23/24 18:44 40 mg [id number] HUMBLE Administration Gabapentin 100 mg 07/25/24 09:00 07/27/24 09:40 Gabapentin 100 Mg Cap PO 08/24/24 08:59 100 mg DAILY HUMBLE Administration Gabapentin 200 mg 07/24/24 21:00 07/26/24 20:45 Gabapentin 100 Mg Cap PO 08/23/24 20:59 200 mg HS HUMBLE Administration Cefepime HCl 2,000 mg in 20 mls @ 5 mls/min 07/26/24 08:00 07/27/24 09:39 Maxipime 2000mg IV 08/02/24 07:59 5 mls/min Q12H HUMBLE Administration Protocol Magnesium Oxide 400 mg 07/25/24 09:00 07/27/24 09:40 Magnesium Oxide 400 Mg Tab PO 08/24/24 08:59 400 mg DAILY HUMBLE Administration Metoprolol Succinate 50 mg 07/24/24 21:00 07/27/24 09:40 Metoprolol Succ 50mg Ext Rel Tab PO 08/23/24 20:59 50 mg BID HUMBLE Administration Multivitamins/Minerals 1 tab 07/25/24 09:00 07/27/24 09:40 Cerovite Adv Formula Tab PO 08/24/24 08:59 1 tab QAM HUMBLE Administration Polyethylene Glycol 17 gm 07/25/24 09:00 07/27/24 09:40 Polyethylene (Miralax) 17 Gm Pack PO 08/24/24 08:59 17 gm DAILY HUMBLE Administration Vitamin B Complex 1 tab 07/25/24 09:00 07/27/24 09:40 Vitamin B Complex Tab PO 08/24/24 08:59 1 tab DAILY HUMBLE Administration Vitamin D 25 mcg 07/25/24 09:00 07/27/24 09:40 Cholecalciferol 25 Mcg (1000 Units) Tab PO 08/24/24 08:59 25 mcg DAILY HUMBLE Administration (1) Open wound of right foot Encounter type: initial encounter Qualified Code(s): S91.301A - Unspecified open wound, right foot, initial encounter (4) HTN (hypertension) Hypertension type: essential hypertension Qualified Code(s): I10 - Essential (primary) hypertension (6) Lumbar spinal stenosis Neurogenic claudication status: unspecified Qualified Code(s): M48.061 - Spinal stenosis, lumbar region without neurogenic claudication
[2024-07-27] MEDS: TROLAMINE SALICYLATE 10% CRM 255 APPLN/85 GM TUBE EXT SCH (15:54)
[2024-07-27 19:59] VITALS: TEMP 98.1
[2024-07-28 07:36] VITALS: BP 132/66; PULSE 60; RESP 16; O2SAT 95
--- NOTE | 2024-07-28 10:18 | Discharge Summary ---
Discharge Summary Date of Service July 28, 2024 Principal Dx & Hospital Course #1 = Principal Diagnosis (1) Open wound of right foot: (2) Cellulitis of right foot: (3) PAF (paroxysmal atrial fibrillation): (4) HTN (hypertension): (5) Dyslipidemia: (6) Lumbar spinal stenosis: (7) History of SIADH: Plan Mr. Green is a 83-year-old male with PMHx of paroxysmal atrial fibrillation, HTN, HLD, history of alcohol use, hyponatremia, SIADH, prostatitis, B12 deficiency and lumbar spinal stenosis who presents from [facility] for R great toe wound and heel wound which developed around the end of June. = Patient sent here from the wound clinic for further evaluation and after being there was sent to the ER due to concern for bone involvement. Patient is wheelchair bound. Patient with notable improvement in swelling and erythema of RLE. Patient mostly immobile and tends to lay on left side, where foot is impacted due to poor circulation and persistent pressure on affected extremity. Podiatry evaluated patient and notes that there no likelihood patient would tolerate a surgical debridement given impaired blood flow. Wound on heel increased given ongoing pressure in that area. Recommendation continues to be santyl and daily dressings. Patient to discharge on 11 more days of PO abx. Wound care appointment on Sunday. #Open foot wound, right foot #PVD #Cellulitis right foot - Failed outpatient abx Keflex x 10d course. Worsening erythema, wounds, and now with cellulitis moving up the leg. -Consult podiatry for debridement and wound consult - pt is following with outpatient wound clinic -Follow blood cultures for cellulitis, may continue IV daptomycin and Zosyn IV -CXR foot is negative for osteomyelitis -Podiatry evaluated patient -seemingly no plans for surgical evaluation -santyl and wound care ongoing, will need for wound care assistance -prevalon off loading boots -PT/OT eval, reportedly is nonambulatory and in wheelchair primarily from [facility]--patient to return to [facility] with HHPT/OT -Discharged with 11 more days doxycycline bid and augmentin bid #Paroxysmal A-fib #HTN #HLD -Rate controlled on metoprolol, NOT on anticoagulation continue to hold statin while on dapto #Lumbar spinal stenosis #Ambulatory dysfunction wheelchair bound 2/2 stenosis -Pain control prn continue gabapentin trial myoflex for muscle aches # SIADH -History of such, currently sodium is well-controlled on lasix continue lasix #Constipation - Continue bowel regimen. Notes For Next Care Provider Medication Changes From Visit Augmentin BID DoxyBID Admission HPI Per Admitting Provider This is a 83-year-old male with PMHx of paroxysmal atrial fibrillation, HTN, HLD, history of alcohol use, hyponatremia, SIADH, prostatitis, B12 deficiency and lumbar spinal stenosis who presents from [facility] for R great toe wound and heel wound which developed around the end of June. He was dealing with edema in lower extremities at that time which is now resolved, but states that the wound has worsened despite treatment with a course of Kelfex recently, finished a 10 day course on 07/22/24. Pt presents here from the wound clinic for further evaluation and after being there was sent to the ER due to concern for bone involvement. He has no history of diabetes. Pt has not walked in about 2-3 years. His , Xiomy, is a retired nurse and present at bedside to support the history. Blood cultures x 2 have been obtained. Starting IV ceftriaxone at bedside. Pt states that he took all of his morning medications today. Admission Exam Per Admitting Provider General: awake, alert, no apparent distress, elderly male Head: Normocephalic, atraumatic ENT: PERRL, EOMI, no pharyngeal exudate, mucous membranes moist Chest: Clear to auscultation, on room air, no adventitious breath sounds Cardiac: Regular rate and rhythm, no murmur, no JVD, normal peripheral pulses, good capillary refill Abdominal: NABS x 4 quadrants, soft, nondistended, nontender to palpation, no rebound or guarding Extremities: RLE with erythema and warmth over the foot and extending up past the ankle (outlined with marker), + dark eschar over the great toe metatarsal aspect about 4cm in diameter, medial heel ulceration also with blackened eschar about the same size. No purulence. Normal inspection, no peripheral edema or erythema, calfs nontender to palpation Psych: Normal mood and affect Neuro: AAO x 3, strength intact bilaterally and rated 5/5 in upper extremities, cannot lift lower extremities while seated. , no motor deficits, speech is clear, no peripheral sensory deficits Discharge Exam Constitutional WD/WN, vitals as above Respiratory normal respiratory effort, lungs clear to auscultation Skin two areas of black eschar in great hallux and medial heel, edema and erythema of RLE resolved Neurologic strength 4/5 BUE, 2-3/5 in BLE Updated Medication List Medication Instructions Recorded Confirmed Type vit A 300 mcg-C 200 mg-E 27 1 tab PO QAM 10/08/18 07/24/24 History mg-lutein 2 mg and minerals tablet (Ocuvite with Lutein) cholecalciferol (vitamin D3) 25 25 mcg PO DAILY 03/02/23 07/24/24 History mcg (1,000 unit) capsule (Vitamin D3) gabapentin 100 mg capsule 100 mg PO DAILY 03/02/23 07/24/24 History gabapentin 100 mg capsule 200 mg PO HS 11/23/23 07/24/24 History B-complex with vitamin C 1 tab PO DAILY 07/24/24 07/24/24 History acetaminophen 650 mg 650 mg PO Q12H 07/24/24 07/24/24 History tablet,extended release atorvastatin 40 mg tablet 40 mg PO DAILY 07/24/24 07/24/24 History docusate sodium 50 mg capsule 50 mg PO DAILY 07/24/24 07/24/24 History furosemide 40 mg tablet 40 mg PO AMHS 07/24/24 07/24/24 History magnesium oxide 400 mg (241.3 mg 400 mg PO DAILY 07/24/24 07/24/24 History magnesium) tablet metoprolol succinate 50 mg 50 mg PO AMHS 07/24/24 07/24/24 History tablet,extended release 24 hr polyethylene glycol 3350 17 gram 17 g PO DAILY 07/24/24 07/24/24 History oral powder packet (Miralax) propylene glycol 0.6 % eye drops 1 drp OPB TID 07/24/24 07/24/24 History (Systane Balance) amoxicillin 875 mg-potassium 1 tab PO BIDM 11 days #22 tabs 07/28/24 Rx clavulanate 125 mg tablet collagenase clostridium histo. 250 1 applic EXT DAILY #30 grams 07/28/24 Rx unit/gram topical ointment (Santyl) doxycycline hyclate 100 mg capsule 100 mg PO BID 11 days #22 caps 07/28/24 Rx lactobacillus combination no.4 3 3,000 mmu cells PO DAILY #30 caps 07/28/24 Rx billion cell capsule (Probiotic) trolamine salicylate 10 % topical 1 applic EXT Q8H 30 days #35.4 07/28/24 Rx cream (Myoflex) grams Hospital Stay Data Consultations 07/24/24 16:10 ED Decision to Admit Stat 07/24/24 16:35 Consult Podiatry Routine Diagnostic Imagining Performed 07/24/24 15:13 US arterial duplex LE RT Stat Pending Results Patient Have Any Pending Studies at Discharge: No Discharge Instructions Given to Patient (Per Discharging Provider) You were admitted due to right foot infection and ulceration that is likely due to the positioning of your foot bearing too much weight on your mattress. You were seen by the [employer] Operator who felt that you would benefit more from a enzymatic debridement rather than surgical debridement at this time due to your blood flow. You will continue antibiotics for a total of 2 weeks upon discharge. Your next dose will be this evening. It is recommended you take a probiotic for gut health, or eat a yogurt that has "live cultures" daily. You will continue Santyl and dry sterile dressings daily. Home health will aid in this. Please continue using the offloading boots. Please continue myoflex to thighs for additional pain control every 8 hours as needed. Total Time Total Time Spent Total Time Spent (In Minutes): 45
[2024-07-28] MEDS: AMOXICILLIN/CLAVULANATE 875 MG TAB PO SCH (16:27)
[2024-07-28] MEDS ORDERED: DOXYCYCLINE HYCLATE 100 MG CAP PO SCH (21:00)
== END 2024-07-28 16:44 | disposition home health service (06) | DRG 603 ==
LOC: ED 14:54 → SUATTDRO 16:35 → 3W 16:35

== ENCOUNTER 2024-09-21 09:44 | Inpatient (IN) ==
--- OUTSIDE RECORDS SUMMARY | 2024-09-21 09:52 | External Medical Summary | Summary of Care ---
Author Name Unknown Organization [facility] Address [address] [place] [address] Phone [phone] Care Team Providers Care Quality Control Systems Manager Name Role Phone Mitchell ROMAN MD, Jerry Cerda Primary Care Provider [phone] Reason for Visit * Reason Onset Date Comments Encounter Created in Error 09/02/2024 Encounter Details Date Type Department Care Team (Late st Contact Info) Description 09/02/2024 Telephone Family Practice [facility] [address] [facility] [place] [address] Jerry Medrano III, MD [address] [place] [address] Encounter Created in Error Allergies No known active allergiesdocumented as of this encounter (statuses as of 09/02/2024) Medications Propylene Glycol 0.6 % Ophthalmic Solution [...] before bedtime. 180 Tablet 3 4 Active Metoprolol Succinate ER 50 MG [...] mg at bedtime 270 Capsule 4 Active Santyl 250 UNIT/GM External Ointment Apply 1 Each topically to affected area in the morning. 4 Active Trolamine Salicylate 10 % External Cream (Arthricream) Apply 1 Application topically to affected area in the morning and 1 Application at noon and 1 Application before bedtime. Apply to leg. Active Probiotic Daily Oral Capsule Take 1 Capsule by mouth in the morning. Active Atorvastatin Calcium 40 MG Oral Tablet (Lipitor)Indicat ions:Dyslipidemi a, goal to be determined TAKE 1 TABLET BY MOUTH EVERY DAY 90 Tablet 4 Active Furosemide 40 MG Oral Tablet (Lasix) Take 1 Tablet by mouth in the morning and 1 Tablet before bedtime. 180 Tablet 3 4 Active documented as of this encounter (statuses as of 09/02/2024) Active Problems Problem Noted Date Diagnosed Date B12 deficiency 02/05/2024 Hyponatremia 09/20/2023 SIADH (syndrome of inappropriate ADH production) 09/20/2023 Alcohol use 09/20/2023 Esophageal obstruction 09/15/2019 PAF (paroxysmal atrial fibrillation) 08/14/2019 Dyslipidemia 07/17/2018 Lumbar spinal stenosis 09/01/2013 HTN, goal below 140/90 documented as of this encounter (statuses as of 09/02/2024) Resolved Problems Problem Noted Date Diagnosed Date [...] as of this encounter (statuses as of 09/02/2024) Immunizations Name Administration Dates Next Due COVID-19 [...] encounter Miscellaneous Notes * Telephone Encounter - Harjit Cantu CPhT - 09/02/2024 9:58 AM EST error documented in this encounter Plan of Treatment Upcoming Encounters Date Type Department Care Team (Late st Contact Info) Description 01/02/2025 11:40 AM EDT Office Visit Family Practice [place] [facility] [place] [address] [facility] [place] [address] [place], [place] [address] [facility] [place] [address] Scheduled Procedures Name Priority Associated Diagnoses Date/Ti me COLONOSCOPY FLEXIBLE PROXIMAL DIAGNOSTIC Recall History of colon polyps Health Maintenance Due Date Last Done Comments Adult Wellness Visit 2004 DTap/Tdap Vaccines (2 - Td or Tdap) 10/11/2022 10/11/2012, 10/11/2012, 2007 Depression Screening 12/29/2022 12/29/2021 COVID-19 Vaccine ( season) 2024 11/03/2020, 11/03/2020, 10/13/2020, Additional history exists Albumin/Creatinine Ratio 07/03/2025 07/03/2022 Pneumococcal Vaccine: 50+ Years Completed 02/09/2017, 01/27/2015, 07/21/2003 Colonoscopy Discontinued [...] filedocumented as of this encounter Care Teams Quality Control Systems Manager Relationship Specialty Start Date End Date Jerry Medrano III, MD [address] [place] [address] PCP - General Family Medicine 10/21/18 documented as of this encounter
--- OUTSIDE RECORDS SUMMARY | 2024-09-21 09:52 | External Medical Summary | Summary of Care ---
Author Name Unknown Organization [facility] Address [address] [place] [address] Phone [phone] Care Team Providers Care Revolving Field Assembler Name Role Phone Mitchell ROMAN MD, Jerry Cerda Primary Care Provider [phone] Reason for Visit * Reason Onset Date Comments Fax 09/08/2024 Encounter Details Date Type Department Care Team (Late st Contact Info) Description 09/08/2024 Telephone Family Practice [facility] [address] [place] [address] Jerry Medrano III, MD [address] [place] [address] Fax Allergies No known active allergiesdocumented as of this encounter (statuses as of 09/08/2024) Medications Propylene Glycol 0.6 % Ophthalmic Solution [...] as of this encounter (statuses as of 09/08/2024) Active Problems Problem Noted Date Diagnosed Date B12 deficiency 02/05/2024 Hyponatremia 09/20/2023 SIADH (syndrome of inappropriate ADH production) 09/20/2023 Alcohol use 09/20/2023 Esophageal obstruction 09/15/2019 PAF (paroxysmal atrial fibrillation) 08/14/2019 Dyslipidemia 07/17/2018 Lumbar spinal stenosis 09/01/2013 HTN, goal below 140/90 documented as of this encounter (statuses as of 09/08/2024) Resolved Problems Problem Noted Date Diagnosed Date [...] as of this encounter (statuses as of 09/08/2024) Immunizations Name Administration Dates Next Due COVID-19 [...] encounter Miscellaneous Notes * Telephone Encounter - Jessica Miller OSA - 09/08/2024 3:26 PM EST This was faxed to the number provided. * Telephone Encounter - Jessica Miller OSA - 09/08/2024 3:15 PM EST Caller requesting the following information to be faxed: Name/Company of caller: [employer] Information requested to be faxed: immunization records Fax number: [phone] Attention to Name/Company: Staff Any additional information?: HENNY documented in this encounter Plan of Treatment Upcoming Encounters Date Type Department Care Team (Late st Contact Info) Description 01/02/2025 11:40 AM EDT Office Visit Family Practice [facility] [address] [place] [address] Jerry Medrano III, MD [address] [place] [address] Scheduled Procedures Name Priority Associated Diagnoses Date/Ti [...] filedocumented as of this encounter Care Teams Revolving Field Assembler Relationship Specialty Start Date End Date Jerry Medrano III, MD [address] [place] [address] PCP - General Family Medicine 10/21/18 documented as of this encounter
[2024-09-21 10:59] LABS: Basophils # (auto) 0.04 K/uL (0.00-0.20); Basophils % (auto) 0.4 %; Eosinophils # (auto) 0.36 K/uL (0.00-0.50); Eosinophils % (auto) 3.3 %; Hematocrit (blood only) 39.7 % (42.0-52.0); Hemoglobin 13.3 g/dl (14.0-18.0); Immature Granulocytes # (auto) 0.03 K/uL (0.01-0.20); Immature Granulocytes % (auto) 0.3 %; Lymphocytes # (auto) 1.84 K/uL (1.20-3.40); Lymphocytes % (auto) 16.9 %; Mean Corpuscular Hemoglobin 30.4 pg (25.0-34.0); Mean Corpuscular Hgb Conc 33.5 g/dL (32.0-36.0); Mean Corpuscular Volume 90.6 fL (80.0-100.0); Mean Platelet Volume 10.7 fL (9.4-12.4); Monocytes # (auto) 0.89 K/uL (0.11-0.59); Monocytes % (auto) 8.2 %; Neutrophils # (auto) 7.71 K/uL (1.40-6.50); Neutrophils % (auto) 70.9 %; Platelet Count 222 K/uL (130-400); RDW Coefficient of Variation 14.5 % (11.5-14.5); RDW Standard Deviation 48.1 fL (36.4-46.3); Red Blood Count 4.38 M/uL (4.70-6.10); White Blood Count 10.87 K/ul (4.8-10.8)
[2024-09-21 11:16] LABS: BUN Creatinine Ratio 22.9 (10-20); Calcium 9.7 mg/dl (8.6-10.3); Creatinine Clr Calc Pharmacy 92.5 ml/min; Potassium 3.6 mmol/L (3.5-5.1)
--- NOTE | 2024-09-21 11:37 | XRay Report ---
EXAM:Radiographs of the Right Foot 2 Views INDICATION: Heel ulcer. TECHNIQUE: Frontal and lateral views of the right foot. COMPARISON: No relevant prior studies available. FINDINGS: Bones/joints: The bones are demineralized. There are age-indeterminate nondisplaced fractures base of the second, third and fifth proximal phalanges. There is relative lucency of the head of the distal fifth metatarsal. On the lateral view there may be a focal erosion of the fifth proximal phalanx. There is marked hypertrophic change of the distal first metatarsal. There is diffuse joint space narrowing most notably involving the first metatarsophalangeal joint. Soft tissues: Severe soft tissue swelling noted most prominent dorsally. No soft tissue gas collection or radiopaque foreign body noted. There is dense vascular calcification. IMPRESSION: 1. I cannot exclude osteomyelitis about the fifth metatarsal phalangeal joint. Consider MRI. 2. Intact calcaneus. 3. Severe cellulitis atherosclerosis. ACT 112: Negative or not required by law. Electronically signed by Nubia Blue 09-21-2024 11:36 AM
--- NOTE | 2024-09-21 13:10 | CT Scan Report ---
EXAM: CT Right Lower Extremity Without Intravenous Contrast Foot INDICATION: Evaluate for osteomyelitis. TECHNIQUE: Axial computed tomography images of the right foot without intravenous contrast. Sagittal and coronal reformatted images were created and reviewed. This CT exam was performed using one or more of the following dose reduction techniques: automated exposure control, adjustment of the mA and/or kV according to patient size, and/or use of iterative reconstruction technique. COMPARISON: Plain radiographs the same day. FINDINGS: Bones/joints: There is heterogeneous density, hypertrophy and cortical surface irregularity few areas of well-defined cortical loss of the distal first metatarsal and base of the first proximal phalanx. There is no aggressive periosteal reaction. The bones are generally demineralized. There is a focal segment of cortical loss plantar aspect of the head of the second, third and fifth metatarsals. There is marked subchondral cystic change of the lateral aspect of the talus. There is mild subchondral cystic change of the anterior tibial articular surface and narrowing of the tibiotalar joint. Well-corticated ossicles typical of old fractures noted adjacent to the tip of the medial and lateral malleoli. No acute fracture. Soft tissues: There is severe subcutaneous edema most notable dorsum of the foot. There is no soft tissue gas. No organized collection noted. No radiopaque foreign body. Vasculature: Dense atherosclerosis noted diffusely. IMPRESSION: 1. There is heterogeneous density with hypertrophic change and some segments of cortical loss involving the distal first metatarsal and base of the first proximal phalanx. Acute on chronic osteomyelitis considered and could be further assessed with MRI or nuclear medicine scan as warranted. 2. There are foci of cortical loss involving the second, third and fifth metatarsals also concerning for osteomyelitis. 3. Severe cellulitis. There is no organized collection identified. 4. Degenerative changes of the tibiotalar joint. ACT 112: Negative or not required by law. Electronically signed by Nubia Blue 09-21-2024 13:10 PM
[2024-09-21 13:15] LABS: C Reactive Protein 1.12 mg/dl (0-0.5)
--- NOTE | 2024-09-21 13:44 | Emergency Department Note ---
Impression & Plan Osteomyelitis ED Provider Note NAME: KELLEN MIMS AGE: 83 SEX: Male INFORMANT: Patient ED PROVIDER(S): Jerry Rucker MD CHIEF COMPLAINT: Right foot wound PLAN: Disposition: Admitted Outpatient prescription management: none Referral: None MEDICAL DECISION MAKING: Patient presented because of a right foot wound. There is some mild surrounding erythema. I did swab the wound. Patient does have a mild leukocytosis. Chemistry panel unremarkable. X-ray imaging was concerning for possible osteomyelitis and a CT scan was performed. Cellulitis and osteomyelitis findings are present. Patient does have an elevated CRP and ESR. Patient does have a leukocytosis. Blood cultures were added. Patient was given IV Zosyn and daptomycin. I did explain the situation to the patient. He was amenable to inpatient treatment. Consultation was made with the [facility] hospitalist service. Patient was evaluated in the ER and admitted for further management. Care/management discussed with: corporate training manager, hospitalist Level of care consideration(s): After review of the information above and other included data, I feel the patient requires escalation of care to admission Triage Nursing notes: reviewed and agree them. Vital Signs: reviewed and remarkable for no significant abnormalities Additional History obtained from: none Chronic Medical/Social Conditions affecting care: Spinal stenosis chronic right foot wounds Prior/ Outside/ External records reviewed: Wound care visit from 09/11/2024 reviewed. Imaging used to compare to today. There is more erythema noted today. Differential Diagnosis: Foreign body, fracture, dislocation, joint compromise, infection, soft tissue injury, tendon injury, vascular compromise, compartment syndrome, as well as other pathologies. Diagnostics, independently interpreted by me: ECG: none Cardiac Monitoring: Cardiac monitoring ordered by me: The patient was placed on continuous cardiac monitoring and observed. It revealed a normal sinus rhythm at 60 beats per minute without ectopy or evidence of dysrhythmia. Medical decision rules: none Imaging studies: X-ray imaging of the right foot is concerning for osteomyelitis of the first MTP. CT imaging of the right foot reveals findings concerning for cellulitis and osteomyelitis. I refer you to the EMR for further details. HPI: 83 year old Male arrives for evaluation of right foot wound. Patient notes a persistent right foot wound over the first MTP but also has a small wound over the heel. He has been followed by the wound center. The patient is getting Betadine and Aquacel dressings daily. His wound care nurse was concerned today that the wound seemed more red and the patient was sent to the ER. He notes having no sensation in the foot from chronic spinal stenosis. Patient is also not ambulate because of send spinal stenosis and muscular weakness. There has been no changes there. He does note some mild foot swelling on both sides but again that is chronic. No reported fevers. Patient notes no drainage. Pt denies headache, fevers, chills, visual changes, neck pain, chest pain, breathing difficulties, nausea, vomiting, abdominal pain, or other complaints. PAST MEDICAL HISTORY: See Below, spinal stenosis, hypertension PAST SURGICAL HISTORY: See Below, SOCIAL HISTORY: See Below, retired. Lives in a nursing facility HOME MEDICATIONS: See Below ALLERGIES: See Below VITALS: See Below PHYSICAL EXAMINATION: GENERAL: Awake, alert, well-appearing, in no distress HENT: Normocephalic, atraumatic. Oropharynx unremarkable. EYES: Normal conjunctiva. Sclera non-icteric. NECK: Inspection normal. Non-tender. Supple. No nuchal rigidity. FROM. No masses. RESPIRATORY: Clear to auscultation. No wheezes. No rales. Normal respiratory effort. CARDIAC: Normal rate. Normal rhythm. No murmurs. No rubs. Extremities warm and well perfused. Pulses equal. No JVD. GI: Soft, non-distended. No tenderness to palpation. No rebound or guarding. No masses. RECTAL: Deferred. MUSCULOSKELETAL: Atraumatic. Chest examination reveals no tenderness. The back is symmetrical on inspection without obvious abnormality. There is no CVA tenderness to palpation. No joint edema. LOWER EXTREMITIES: Calves are equal size bilaterally and non-tender. 2-3+ bilateral edema. On the right foot there are 2 ulcers on the medial aspect of the first MTP and heel. There is surrounding erythema of the first MTP ulcer. No drainage. Black eschar noted Which patient states is chronic. NEURO: Normal sensorium. No sensory or motor deficits noted. SKIN: No rash or jaundice noted. PROCEDURES: none CRITICAL CARE: none OBSERVATION NOTE: none Past Med/Surg History Problem List Osteomyelitis (Acute) Open wound of right foot (Acute) History of SIADH Hyponatremia Elevated troponin (Acute) COVID-19 (Acute) Weakness (Acute) PAF (paroxysmal atrial fibrillation) Alcohol use (Chronic) History of tonsillectomy and adenoidectomy (Chronic) History of appendectomy (Chronic) Lumbar spinal stenosis (Chronic) Dyslipidemia (Chronic) Prediabetes (Chronic) HTN (hypertension) (Chronic) Medical History Abnormal ankle brachial index (MONA) Abnormal computed tomography of abdomen and pelvis Acute hypokalemia Vomiting Leukocytosis SBO (small bowel obstruction) Incarcerated hernia Incarcerated ventral hernia Leg edema Symptomatic anemia Acute GI bleeding Umbilical hernia Hx of spinal stenosis Family History Mother CHF (congestive heart failure) Social History Smoking Status: Never smoker Tobacco Type: Cigarettes Second Hand Exposure: No; Do You Dip or Chew Tobacco: No; Hx Alcohol Use: Yes Alcohol type: beer Alcohol Intake Frequency Comment: 6-7 beers/day Hx Substance Use: No Preferred Language: Turkish Communication Ability: Effective Mechanism Inspector Required: No Beliefs That Will Affect Care: None marital status: Current Living Situation: [facility] Current Living Situation Comment: [employer] current occupational status: retired Feels Safe at Home: Yes Physical Activity Frequency: Does not Exercise Assistive Devices: Walker Allergies Allergies Allergy/AdvReac Type Severity Reaction Status Date / Time No Known Allergies Allergy Verified 09/11/24 13:05 Home Meds Home Medications Medication Instructions Recorded Confirmed vit A 300 mcg-C 200 mg-E 27 1 tab PO QAM 10/08/18 09/21/24 mg-lutein 2 mg and minerals tablet (Ocuvite with Lutein) cholecalciferol (vitamin D3) 25 25 mcg PO DAILY 03/02/23 09/21/24 mcg (1,000 unit) capsule (Vitamin D3) gabapentin 100 mg capsule 100 mg PO DAILY 03/02/23 09/21/24 gabapentin 100 mg capsule 200 mg PO HS 11/23/23 09/21/24 B-complex with vitamin C 1 tab PO DAILY 07/24/24 09/21/24 acetaminophen 650 mg 650 mg PO BID 07/24/24 09/21/24 tablet,extended release atorvastatin 40 mg tablet 40 mg PO DAILY 07/24/24 09/21/24 docusate sodium 50 mg capsule 100 mg PO DAILY PRN Constipation 07/24/24 09/21/24 furosemide 40 mg tablet 40 mg PO AMHS 07/24/24 09/21/24 metoprolol succinate 50 mg 50 mg PO AMHS 07/24/24 09/21/24 tablet,extended release 24 hr polyethylene glycol 3350 17 gram 17 g PO DAILY PRN Constipation 07/24/24 09/21/24 oral powder packet (Miralax) propylene glycol 0.6 % eye drops 1 drp OPB BID 07/24/24 09/21/24 (Systane Balance) magnesium oxide 400 mg (241.3 mg 400 mg PO DAILY 08/13/24 09/21/24 magnesium) tablet Blue Emu Arthritic Joint Ointment 1 applic topical UD 09/21/24 09/21/24 acetaminophen 650 mg tablet 650 mg PO DAILY PRN Pain 09/21/24 09/21/24 potassium chloride 10 mEq 10 meq PO BID 09/21/24 09/21/24 tablet,extended release (Klor-Con) Results & Data (ED) Vital Signs Vital Signs - 24 hr 09/21/24 09:44 09/21/24 10:06 09/21/24 10:30 Temperature 36.5 C Temperature Source Oral Pulse Rate 68 68 64 Pulse Rate from SpO2 Sensor 60 Respiratory Rate 20 31 H 25 H Respiratory Effort / Characteristics Non-Labored Respiratory Depth Normal Respiratory Pattern Regular Blood Pressure 165/72 H 160/85 H 146/70 H Blood Pressure Mean 103 110 95 Pulse Oximetry 95 96 Oxygen Delivery Method Room Air Sepsis Recent Fever Within 48 Hours No Sepsis New/Unexplained Change in Mental Status N/A Sepsis Action Taken by Nursing No Action Required 09/21/24 11:09 09/21/24 11:33 09/21/24 12:03 Temperature Temperature Source Pulse Rate 65 62 64 Pulse Rate from SpO2 Sensor 64 62 Respiratory Rate 24 18 14 Respiratory Effort / Characteristics Respiratory Depth Respiratory Pattern Blood Pressure 175/103 H 160/91 H Blood Pressure Mean 127 114 Pulse Oximetry 99 98 Oxygen Delivery Method Sepsis Recent Fever Within 48 Hours Sepsis New/Unexplained Change in Mental Status Sepsis Action Taken by Nursing 09/21/24 12:16 09/21/24 13:06 Temperature Temperature Source Pulse Rate 61 56 L Pulse Rate from SpO2 Sensor Respiratory Rate 14 Respiratory Effort / Characteristics Respiratory Depth Respiratory Pattern Blood Pressure 157/83 H Blood Pressure Mean 107 Pulse Oximetry Oxygen Delivery Method Sepsis Recent Fever Within 48 Hours Sepsis New/Unexplained Change in Mental Status Sepsis Action Taken by Nursing Laboratory Data 09/21/24 10:42 09/21/24 10:42 Lab Results 09/21/24 09/21/24 Range/Units 10:42 13:45 WBC 10.87 H (4.8-10.8) K/ul RBC 4.38 L (4.70-6.10) M/uL Hgb 13.3 L (14.0-18.0) g/dl Hct 39.7 L (42.0-52.0) % MCV 90.6 (80.0-100.0) fL MCH 30.4 (25.0-34.0) pg MCHC 33.5 (32.0-36.0) g/dL RDW Std Deviation 48.1 H (36.4-46.3) fL RDW Coeff of Steven 14.5 (11.5-14.5) % Plt Count 222 (130-400) K/uL MPV 10.7 (9.4-12.4) fL Immature Gran % (Auto) 0.3 % Neut % (Auto) 70.9 % Lymph % (Auto) 16.9 % Frederick % (Auto) 8.2 % Eos % (Auto) 3.3 % Baso % (Auto) 0.4 % Neut # (Auto) 7.71 H (1.40-6.50) K/uL Lymph # (Auto) 1.84 (1.20-3.40) K/uL Frederick # (Auto) 0.89 H (0.11-0.59) K/uL Eos # (Auto) 0.36 (0.00-0.50) K/uL Baso # (Auto) 0.04 (0.00-0.20) K/uL Immature Gran # (Auto) 0.03 (0.01-0.20) K/uL ESR 59 H (0-20) mm/hr Sodium 135 L (136-145) mmol/L Potassium 3.6 (3.5-5.1) mmol/L Chloride 101 (98-107) mmol/L Carbon Dioxide 28 (21-32) mmol/L Anion Gap 6 (3-11) BUN 16 (6-23) mg/dl Creatinine 0.70 (0.6-1.4) mg/dl Est Cr Clr Drug Dosing 92.5 ml/min eGFR 90.30 BUN/Creatinine Ratio 22.9 H (10-20) Glucose 110 H (70-99(Fasting)) mg/dl Calcium 9.7 (8.6-10.3) mg/dl C-Reactive Protein 1.12 H (0-0.5) mg/dl SARS-CoV-2, RNA, NAAT NEGATIVE (NEGATIVE) Imaging Data Radiologist's Impression: Foot X-Ray 09/21/24 10:25 EXAM:Radiographs of the Right Foot 2 Views INDICATION: Heel ulcer. TECHNIQUE: Frontal and lateral views of the right foot. COMPARISON: No relevant prior studies available. FINDINGS: Bones/joints: The bones are demineralized. There are age-indeterminate nondisplaced fractures base of the second, third and fifth proximal phalanges. There is relative lucency of the head of the distal fifth metatarsal. On the lateral view there may be a focal erosion of the fifth proximal phalanx. There is marked hypertrophic change of the distal first metatarsal. There is diffuse joint space narrowing most notably involving the first metatarsophalangeal joint. Soft tissues: Severe soft tissue swelling noted most prominent dorsally. No soft tissue gas collection or radiopaque foreign body noted. There is dense vascular calcification. IMPRESSION: 1. I cannot exclude osteomyelitis about the fifth metatarsal phalangeal joint. Consider MRI. 2. Intact calcaneus. 3. Severe cellulitis atherosclerosis. ACT 112: Negative or not required by law. Electronically signed by Nubia Blue 09-21-2024 11:[address] 09/21/24 11:22 EXAM: CT Right Lower Extremity Without Intravenous Contrast Foot INDICATION: Evaluate for osteomyelitis. TECHNIQUE: Axial computed tomography images of the right foot without intravenous contrast. Sagittal and coronal reformatted images were created and reviewed. This CT exam was performed using one or more of the following dose reduction techniques: automated exposure control, adjustment of the mA and/or kV according to patient size, and/or use of iterative reconstruction technique. COMPARISON: Plain radiographs the same day. FINDINGS: Bones/joints: There is heterogeneous density, hypertrophy and cortical surface irregularity few areas of well-defined cortical loss of the distal first metatarsal and base of the first proximal phalanx. There is no aggressive periosteal reaction. The bones are generally demineralized. There is a focal segment of cortical loss plantar aspect of the head of the second, third and fifth metatarsals. There is marked subchondral cystic change of the lateral aspect of the talus. There is mild subchondral cystic change of the anterior tibial articular surface and narrowing of the tibiotalar joint. Well-corticated ossicles typical of old fractures noted adjacent to the tip of the medial and lateral malleoli. No acute fracture. Soft tissues: There is severe subcutaneous edema most notable dorsum of the foot. There is no soft tissue gas. No organized collection noted. No radiopaque foreign body. Vasculature: Dense atherosclerosis noted diffusely. IMPRESSION: 1. There is heterogeneous density with hypertrophic change and some segments of cortical loss involving the distal first metatarsal and base of the first proximal phalanx. Acute on chronic osteomyelitis considered and could be further assessed with MRI or nuclear medicine scan as warranted. 2. There are foci of cortical loss involving the second, third and fifth metatarsals also concerning for osteomyelitis. 3. Severe cellulitis. There is no organized collection identified. 4. Degenerative changes of the tibiotalar joint. ACT 112: Negative or not required by law. Electronically signed by Nubia Blue 09-21-2024 13:10 PM Discharge Plan Visit Data Chief Complaint: Wound Stated Complaint: R FOOT SORES ED Provider: Jerry Rucker Discharge Problem: Osteomyelitis Forms Stand Alone Forms: [facility] Prescriptions Prescriptions: No Action acetaminophen 650 mg tablet extended release 650 mg PO BID Rx Instructions: 0800, 1300 B-complex with vitamin C Tablet 1 tab PO DAILY magnesium oxide 400 mg (241.3 mg magnesium) tablet 400 mg PO DAILY Ocuvite with Lutein 1,000 unit-200 mg-60 unit-2 mg Tablet 1 tab PO QAM Systane Balance 0.6 % drops 1 drp OPB BID cholecalciferol (vitamin D3) [Vitamin D3] 25 mcg (1,000 unit) Capsule 25 mcg PO DAILY gabapentin 100 mg capsule 100 mg PO DAILY gabapentin 100 mg capsule 200 mg PO HS atorvastatin 40 mg tablet 40 mg PO DAILY furosemide 40 mg tablet 40 mg PO AMHS Rx Instructions: 0800, 1300 metoprolol succinate 50 mg tablet extended release 24 hr 50 mg PO AMHS polyethylene glycol 3350 [Miralax] 17 gram Powder In Packet 17 g PO DAILY PRN (Reason: Constipation) docusate sodium 50 mg Capsule 100 mg PO DAILY PRN (Reason: Constipation) potassium chloride [Klor-Con 10] 10 mEq Tablet Extended Release 10 meq PO BID acetaminophen 650 mg Tablet 650 mg PO DAILY PRN (Reason: Pain) Blue Emu Arthritic Joint Ointment 1 applic topical UD Rx Instructions: apply to upper legs for pain Referrals Referrals: Olegario Bautista [Primary Care Provider] -
--- NOTE | 2024-09-21 14:10 | History & Physical Report ---
Date of Service September 21, 2024 Assessment & Plan (1) Osteomyelitis: (2) Cellulitis of right foot: Plan: Pt w/ hx of chronic foot wound Follows w/ wound care center - last seen 09/11/2023 at that time Topical Xylocaine applied to the wounds and recommended to Continue to paint areas of eschar with Betadine daily and dress open areas with Aquacel Ag. Encouraged offloading with Prevalon boots. Now presents from [facility] as wound seems worsening ESR, CRP elevated CT foot 1. There is heterogeneous density with hypertrophic change and some segments of cortical loss involving the distal first metatarsal and base of the first proximal phalanx. Acute on chronic osteomyelitis considered and could be further assessed with MRI or nuclear medicine scan as warranted. 2. There are foci of cortical loss involving the second, third and fifth metatarsals also concerning for osteomyelitis. 3. Severe cellulitis. There is no organized collection identified. 4. Degenerative changes of the tibiotalar joint. Blood cultx, wound cultx obtained in ED - follow Started on zosyn and dapto, will cont. Wound care consult Podiatry consult (pt seen by Dr. Trimble when admitted here in July) hx of pAfib - cont. metoprolol, not on AC HLD - hold statin while on dapto hx of SIADH - monitor sodium level - current na 135 Lumbar spinal stenosis - pain control, cont. gabapentin History of Present Illness Chief Complaint: foot wound Primary Care Provider: Olegario [facility] 83 yo M w/ hx of paroxysmal atrial fibrillation, HTN, HLD, history of alcohol use, hyponatremia, SIADH, prostatitis, B12 deficiency and lumbar spinal stenosis who presents from [facility] with a foot wound. Pt is following wound care center for his foot wound, last time seen September 11, 2023 - at that time Topical Xylocaine applied to the wounds and recommended to continue to paint areas of eschar with Betadine daily and dress open areas with Aquacel Ag. Encouraged offloading with Prevalon boots. Now pt presents from [facility] as wound seems worsening. In the ED, ESR, CRP elevated. Mild leukocytosis. Foot XR obtained and concerning for possible osteomyelitis. CT foot was therefore obtained and noted 1. There is heterogeneous density with hypertrophic change and some segments of cortical loss involving the distal first metatarsal and base of the first proximal phalanx. Acute on chronic osteomyelitis considered and could be further assessed with MRI or nuclear medicine scan as warranted. 2. There are foci of cortical loss involving the second, third and fifth metatarsals also concerning for osteomyelitis. Blood cultures, and wound cultx obtained in ED. Pt was started on zosyn and daptomycin. Currently pt is laying in bed in NAD, denies any fever, chills, chest pain, shortness of breath. denies abd. pain, n/v. Pt's son is also present at the bedside, provides hx and updated. Allergies Allergy/AdvReac Type Severity Reaction Status Date / Time No Known Allergies Allergy Verified 09/11/24 13:05 Home Medications Medication Instructions Recorded Confirmed Type vit A 300 mcg-C 200 mg-E 27 1 tab PO QAM 10/08/18 09/21/24 History mg-lutein 2 mg and minerals tablet (Ocuvite with Lutein) cholecalciferol (vitamin D3) 25 25 mcg PO DAILY 03/02/23 09/21/24 History mcg (1,000 unit) capsule (Vitamin D3) gabapentin 100 mg capsule 100 mg PO DAILY 03/02/23 09/21/24 History gabapentin 100 mg capsule 200 mg PO HS 11/23/23 09/21/24 History B-complex with vitamin C 1 tab PO DAILY 07/24/24 09/21/24 History acetaminophen 650 mg 650 mg PO BID 07/24/24 09/21/24 History tablet,extended release atorvastatin 40 mg tablet 40 mg PO DAILY 07/24/24 09/21/24 History docusate sodium 50 mg capsule 100 mg PO DAILY PRN Constipation 07/24/24 09/21/24 History furosemide 40 mg tablet 40 mg PO AMHS 07/24/24 09/21/24 History metoprolol succinate 50 mg 50 mg PO AMHS 07/24/24 09/21/24 History tablet,extended release 24 hr polyethylene glycol 3350 17 gram 17 g PO DAILY PRN Constipation 07/24/24 09/21/24 History oral powder packet (Miralax) propylene glycol 0.6 % eye drops 1 drp OPB BID 07/24/24 09/21/24 History (Systane Balance) magnesium oxide 400 mg (241.3 mg 400 mg PO DAILY 08/13/24 09/21/24 History magnesium) tablet Blue Emu Arthritic Joint Ointment 1 applic topical UD 09/21/24 09/21/24 History acetaminophen 650 mg tablet 650 mg PO DAILY PRN Pain 09/21/24 09/21/24 History potassium chloride 10 mEq 10 meq PO BID 09/21/24 09/21/24 History tablet,extended release (Klor-Con) Past Med/Surg History Problem List Osteomyelitis (Acute) Open wound of right foot (Acute) History of SIADH Hyponatremia Elevated troponin (Acute) COVID-19 (Acute) Weakness (Acute) PAF (paroxysmal atrial fibrillation) Alcohol use (Chronic) History of tonsillectomy and adenoidectomy (Chronic) History of appendectomy (Chronic) Lumbar spinal stenosis (Chronic) Dyslipidemia (Chronic) Prediabetes (Chronic) HTN (hypertension) (Chronic) Medical History Abnormal ankle brachial index (MONA) Abnormal computed tomography of abdomen and pelvis Acute hypokalemia Vomiting Leukocytosis SBO (small bowel obstruction) Incarcerated hernia Incarcerated ventral hernia Leg edema Symptomatic anemia Acute GI bleeding Umbilical hernia Hx of spinal stenosis Family History Mother CHF (congestive heart failure) Social History Smoking Status: Never smoker Tobacco Type: Cigarettes Second Hand Exposure: No; Do You Dip or Chew Tobacco: No; Hx Alcohol Use: Yes Alcohol type: beer Alcohol Intake Frequency Comment: 6-7 beers/day Hx Substance Use: No Preferred Language: Sinhala Communication Ability: Effective 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: No Beliefs That Will Affect Care: None marital status: Current Living Situation: Longterm Current Living Situation Comment: [employer] current occupational status: retired Feels Safe at Home: Yes Physical Activity Frequency: Does not Exercise Assistive Devices: Walker Review of Systems Review of Systems: All systems reviewed & are unremarkable except as noted in Subjective Physical Exam Constitutional: WD/WN, vitals as above Eyes: PERRL, conjunctivae normal, anicteric sclerae ENMT: external ear and nose normal, oropharynx normal Neck: normal visual inspection Respiratory: normal respiratory effort, lungs clear to auscultation Cardiovascular: Rate/Rhythm: regular rate and regular rhythm Chest (Breasts): Chest: normal inspection of chest Gastrointestinal (Abdomen): normal bowel sounds, soft, nontender, no hepatosplenomegaly Musculoskeletal: no cyanosis or clubbing, extremities motor strength 5/5 (LE edema b/l. R foot erythema at hallux, wound at hallux and heel, no drain) Skin: no rashes, warm and dry (R foot as above) Neurologic: PERRL, EOMI, accommodation nl, no face palsy, no dysarthria Psychiatric: A+Ox3, euthymic affect Results & Data Results & Data Vital Signs (Past 12 Hours) Vital Signs Temp Pulse Resp BP Pulse Ox O2 Del Method 09/21/24 13:06 56 L 14 157/83 H 09/21/24 12:16 61 09/21/24 12:03 64 14 98 09/21/24 11:33 62 18 160/91 H 09/21/24 11:09 65 24 175/103 H 99 09/21/24 10:30 64 25 H 146/70 H 09/21/24 10:06 68 31 H 160/85 H 96 09/21/24 09:44 36.5 C 68 20 165/72 H 95 Room Air Laboratory Results 09/21/24 09/21/24 Range/Units 13:45 10:42 WBC 10.87 H (4.8-10.8) K/ul RBC 4.38 L (4.70-6.10) M/uL Hgb 13.3 L (14.0-18.0) g/dl Hct 39.7 L (42.0-52.0) % MCV 90.6 (80.0-100.0) fL MCH 30.4 (25.0-34.0) pg MCHC 33.5 (32.0-36.0) g/dL RDW Std Deviation 48.1 H (36.4-46.3) fL RDW Coeff of Steven 14.5 (11.5-14.5) % Plt Count 222 (130-400) K/uL MPV 10.7 (9.4-12.4) fL Immature Gran % (Auto) 0.3 % Neut % (Auto) 70.9 % Lymph % (Auto) 16.9 % [place] % (Auto) 8.2 % Eos % (Auto) 3.3 % Baso % (Auto) 0.4 % Neut # (Auto) 7.71 H (1.40-6.50) K/uL Lymph # (Auto) 1.84 (1.20-3.40) K/uL [place] # (Auto) 0.89 H (0.11-0.59) K/uL Eos # (Auto) 0.36 (0.00-0.50) K/uL Baso # (Auto) 0.04 (0.00-0.20) K/uL Immature Gran # (Auto) 0.03 (0.01-0.20) K/uL ESR 59 H (0-20) mm/hr Sodium 135 L (136-145) mmol/L Potassium 3.6 (3.5-5.1) mmol/L Chloride 101 (98-107) mmol/L Carbon Dioxide 28 (21-32) mmol/L Anion Gap 6 (3-11) BUN 16 (6-23) mg/dl Creatinine 0.70 (0.6-1.4) mg/dl Est Cr Clr Drug Dosing 92.5 ml/min eGFR 90.30 BUN/Creatinine Ratio 22.9 H (10-20) Glucose 110 H (70-99(Fasting)) mg/dl Calcium 9.7 (8.6-10.3) mg/dl C-Reactive Protein 1.12 H (0-0.5) mg/dl SARS-CoV-2, RNA, NAAT Pending Diagnostic Findings Foot XR FINDINGS: Bones/joints: The bones are demineralized. There are age-indeterminate nondisplaced fractures base of the second, third and fifth proximal phalanges. There is relative lucency of the head of the distal fifth metatarsal. On the lateral view there may be a focal erosion of the fifth proximal phalanx. There is marked hypertrophic change of the distal first metatarsal. There is diffuse joint space narrowing most notably involving the first metatarsophalangeal joint. Soft tissues: Severe soft tissue swelling noted most prominent dorsally. No soft tissue gas collection or radiopaque foreign body noted. There is dense vascular calcification. IMPRESSION: 1. I cannot exclude osteomyelitis about the fifth metatarsal phalangeal joint. Consider MRI. 2. Intact calcaneus. 3. Severe cellulitis atherosclerosis. Foot CT FINDINGS: Bones/joints: There is heterogeneous density, hypertrophy and cortical surface irregularity few areas of well-defined cortical loss of the distal first metatarsal and base of the first proximal phalanx. There is no aggressive periosteal reaction. The bones are generally demineralized. There is a focal segment of cortical loss plantar aspect of the head of the second, third and fifth metatarsals. There is marked subchondral cystic change of the lateral aspect of the talus. There is mild subchondral cystic change of the anterior tibial articular surface and narrowing of the tibiotalar joint. Well-corticated ossicles typical of old fractures noted adjacent to the tip of the medial and lateral malleoli. No acute fracture. Soft tissues: There is severe subcutaneous edema most notable dorsum of the foot. There is no soft tissue gas. No organized collection noted. No radiopaque foreign body. Vasculature: Dense atherosclerosis noted diffusely. IMPRESSION: 1. There is heterogeneous density with hypertrophic change and some segments of cortical loss involving the distal first metatarsal and base of the first proximal phalanx. Acute on chronic osteomyelitis considered and could be further assessed with MRI or nuclear medicine scan as warranted. 2. There are foci of cortical loss involving the second, third and fifth metatarsals also concerning for osteomyelitis. 3. Severe cellulitis. There is no organized collection identified. 4. Degenerative changes of the tibiotalar joint.
[2024-09-21] MEDS: DAPTOmycin 500 MG in SYRINGE 0 ML IV STA (14:40)
[2024-09-21] MEDS: PIPERACILLIN/TAZOBACTAM 4.5 GM/100 ML BAG IV ONE (14:45)
[2024-09-21] MEDS ORDERED: DOCUSATE SODIUM 100 MG CAP PO PRN (15:53)
[2024-09-21] MEDS: POTASSIUM CHLORIDE CRTAB 20 MEQ TABCR PO ONE (15:55)
[2024-09-21] MEDS: PIPERACILLIN/TAZOBACTAM 4.5 GM/100 ML BAG IV SCH (20:58)
[2024-09-21] MEDS: GABAPENTIN 100 MG CAP PO SCH (20:58)
[2024-09-21] MEDS: METOPROLOL SUCC 50MG EXT REL TAB PO SCH (20:58)
[2024-09-22] MEDS: CHOLECALCIFEROL 25 MCG (1000 UNITS) TAB PO SCH (07:46)
[2024-09-22] MEDS: GABAPENTIN 100 MG CAP PO SCH (07:46)
[2024-09-22] MEDS: VITAMIN B COMPLEX TAB PO SCH (07:46)
[2024-09-22] MEDS ORDERED: Nursing to Pharmacy Communication SCH (08:00)
[2024-09-22 08:06] LABS: Basophils # (auto) 0.05 K/uL (0.00-0.20); Basophils % (auto) 0.6 %; Eosinophils # (auto) 0.39 K/uL (0.00-0.50); Eosinophils % (auto) 4.7 %; Hematocrit (blood only) 37.7 % (42.0-52.0); Hemoglobin 12.5 g/dl (14.0-18.0); Immature Granulocytes # (auto) 0.02 K/uL (0.01-0.20); Immature Granulocytes % (auto) 0.2 %; Lymphocytes % (auto) 20.5 %; Mean Corpuscular Hemoglobin 30.6 pg (25.0-34.0); Mean Corpuscular Hgb Conc 33.2 g/dL (32.0-36.0); Mean Corpuscular Volume 92.2 fL (80.0-100.0); Mean Platelet Volume 10.8 fL (9.4-12.4); Monocytes # (auto) 0.69 K/uL (0.11-0.59); Monocytes % (auto) 8.3 %; Neutrophils # (auto) 5.43 K/uL (1.40-6.50); Neutrophils % (auto) 65.7 %; Platelet Count 193 K/uL (130-400); RDW Coefficient of Variation 14.8 % (11.5-14.5); Red Blood Count 4.09 M/uL (4.70-6.10); White Blood Count 8.28 K/ul (4.8-10.8)
[2024-09-22 08:25] LABS: BUN Creatinine Ratio 17.3 (10-20); C Reactive Protein 1.35 mg/dl (0-0.5); Calcium 9.4 mg/dl (8.6-10.3); Creatinine Clr Calc Pharmacy 78.7 ml/min; Magnesium 1.9 mg/dl (1.7-2.4); Phosphorus 3.6 mg/dl (2.5-4.9)
[2024-09-22] MEDS: GADOBUTROL 65ML VIAL IV ONE (10:07)
--- NOTE | 2024-09-22 10:40 | Magnetic Resonance Report ---
MRI OF THE RIGHT FOOT WITH AND WITHOUT CONTRAST CLINICAL HISTORY: concern for osteomyelitis, surgical planning COMPARISON STUDY: Right foot radiographs and CT of the right foot September 21, 2024. TECHNIQUE: Utilizing a 1.5 Belen magnet and dedicated coil, multiplanar, multiecho imaging of the rig ht forefoot was performed pre and postcontrast administration. Intravenous injection of 10 cc of Gada vist was uneventful. FINDINGS: A wound along the medial aspect of the right first metatarsal head is present. There is mod erate marrow edema and enhancement within the right first metatarsal head. Marrow signal on the T1-we ighted sequence is mildly diminished. There is underlying bony erosion of the lateral cortex of the r ight first metatarsal. The findings are consistent with acute osteomyelitis. No associated fluid luis daniel ection is identified to suggest an abscess. There is associated cellulitis. 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 No additional sites of marrow edema within the right forefoot are present. Tarsometatarsal joints are intact. There is extensive dorsal forefoot and midfoot edema. A wound of the medial right heel is partially imaged on this examination. No marrow e sav[place] is identified within visualized portions of the right calcaneus however the calcaneus is only pa rtially imaged on this examination. IMPRESSION: 1. Findings consistent with acute osteomyelitis of the right first metatarsal head. Overlying wound w ith associated cellulitis. No abscess. 2. Partially imaged medial right heel wound. No evidence for acute osteomyelitis within the right jose caneus although calcaneus only partially imaged on this exam. 3. Extensive dorsal edema of the right foot. ACT 112: Negative or not required by law. Electronically signed by: Alexandr Watson M.D. 09/22/2024 10:37 AM
--- NOTE | 2024-09-22 11:18 | Hospitalist Progress Note ---
Date of Service September 22, 2024 Assessment & Plan (1) Osteomyelitis: Plan: -CT and xray in ED revealed cocnern for osteomyelitis and cellulitis -patient hemodynamically stable with mild leukocytosis -on exam purulent drainage and smell noted, elevated ESR/CRP -does see wound care outpatient, treated with betadine and acquacell, offloading with prevalon boots Plan: -MRI right foot ordered to confirm osteomyelitis and for possible surgical staging -podiatry consult, appreciate recs -blood and wound cultures ordered -continue zosyn/dapto, deescalate based on culture data (2) Cellulitis of right foot: Plan: -see above, overlying cellulitis noted on CT and MRI imaging Plan: -zosyn/dapto ordered (3) Open wound of right foot: Plan: -wound care consult, appreciate recs (4) PAF (paroxysmal atrial fibrillation): Plan: -cont. metoprolol, not on AC Plan: -discuss anticoagulation outpatient with PCP (5) Prediabetes: Plan: -could be contributing factor to wounds (6) HTN (hypertension): Plan: -hold home BP meds while on dapto (7) Hyponatremia: Plan: -chronic, hx of SIADH (8) Lumbar spinal stenosis: Plan: - pain control, cont. gabapentin Plan Feeding/fluids: regular Analgesia: gabapentin, tylenol Sedation: na Thromboprophylaxis: start lovenox Head up position: na Ulcer prophylaxis: na Glycemic control: na Spontaneous breathing trial: na Bowel care: start miralax prn Indwelling catheter removal: na Deescalation of antibiotics: based on culture data Admission and Anticipated Discharge Date Admission Date: September 21, 2024 Subjective 83-year-old male with history of osteomyelitis, paroxysmal atrial fib rillation, history of SIADH, hypertension, hyperlipidemia, prediabetes who presented with right foot pain and drainage. CT scan and x-ray in ED concerning for osteomyelitis, admitted to medicine. Patient is doing well today. He states that he is having a little bit of pain in his right foot but it is quite bearable. He states he does not want to lose his foot and wants to try to treat things with antibiotics if possible. When told the imaging results shows significant amount of osteomyelitis and edema concerning for severe infection, he was overwhelmed. Review of Systems Review of Systems: CONSTITUTIONAL: Patient denies fevers, chills, sweats and weight changes. EYES: Patient denies any visual symptoms. EARS, NOSE, AND THROAT: No difficulties with hearing. No symptoms of rhinitis or sore throat. CARDIOVASCULAR: Patient denies chest pains, palpitations, orthopnea and paroxysmal nocturnal dyspnea. RESPIRATORY: No dyspnea on exertion, no wheezing or cough. GI: No nausea, vomiting, diarrhea, constipation, abdominal pain, hematochezia or melena. : No urinary hesitancy or dribbling. No nocturia or urinary frequency. No abnormal urethral discharge. MUSCULOSKELETAL: right foot drainage and pain NEUROLOGIC: No chronic headaches, no seizures. Patient denies numbness, tingling or weakness. PSYCHIATRIC: Patient denies problems with mood disturbance. No problems with anxiety. ENDOCRINE: No excessive urination or excessive thirst. DERMATOLOGIC: Patient denies any rashes or skin changes. Physical Exam Physical Exam: Gen: A&O 3 NAD HEENT: NCAT, EOMI, not icteric. External ears normal. No rhinorrhea. Moist mucous membranes. Neck: Supple, full range of motion, no observable masses, No meningeal sign. Lungs: No Respiratory distress. CV: RRR, no edema. Abdomen: Soft, nondistended, No rebound tenderness. MSK: right foot with heel and 1st digit purulence and smell Skin: No rashes, petechiae, lesions. Normal color per patient. Neuro: Normal Gait, Grossly intact. Psych: Appropriate for situation. Results & Data Results & Data Vital Signs (Past 12 Hours) Vital Signs Temp Pulse Pulse Resp BP Pulse Ox O2 Del Method 09/22/24 08:09 36.8 C 63 18 123/75 96 Room Air 09/22/24 05:54 59 L 09/22/24 04:00 36.6 C 60 18 110/67 99 Room Air Laboratory Results Laboratory Results WBC 8.28 K/ul (4.8-10.8) 09/22/24 07:15 RBC 4.09 M/uL (4.70-6.10) L 09/22/24 07:15 Hgb 12.5 g/dl (14.0-18.0) L 09/22/24 07:15 Hct 37.7 % (42.0-52.0) L 09/22/24 07:15 MCV 92.2 fL (80.0-100.0) 09/22/24 07:15 MCH 30.6 pg (25.0-34.0) 09/22/24 07:15 MCHC 33.2 g/dL (32.0-36.0) 09/22/24 07:15 RDW Std Deviation 50.0 fL (36.4-46.3) H 09/22/24 07:15 RDW Coeff of Steven 14.8 % (11.5-14.5) H 09/22/24 07:15 Plt Count 193 K/uL (130-400) 09/22/24 07:15 MPV 10.8 fL (9.4-12.4) 09/22/24 07:15 Immature Gran % (Auto) 0.2 % 09/22/24 07:15 Neut % (Auto) 65.7 % 09/22/24 07:15 Lymph % (Auto) 20.5 % 09/22/24 07:15 Morris % (Auto) 8.3 % 09/22/24 07:15 Eos % (Auto) 4.7 % 09/22/24 07:15 Baso % (Auto) 0.6 % 09/22/24 07:15 Neut # (Auto) 5.43 K/uL (1.40-6.50) 09/22/24 07:15 Lymph # (Auto) 1.70 K/uL (1.20-3.40) 09/22/24 07:15 Morris # (Auto) 0.69 K/uL (0.11-0.59) H 09/22/24 07:15 Eos # (Auto) 0.39 K/uL (0.00-0.50) 09/22/24 07:15 Baso # (Auto) 0.05 K/uL (0.00-0.20) 09/22/24 07:15 Immature Gran # (Auto) 0.02 K/uL (0.01-0.20) 09/22/24 07:15 ESR 45 mm/hr (0-20) H 09/22/24 07:15 Sodium 138 mmol/L (136-145) 09/22/24 07:15 Potassium 4.0 mmol/L (3.5-5.1) 09/22/24 07:15 Chloride 104 mmol/L (98-107) 09/22/24 07:15 Carbon Dioxide 30 mmol/L (21-32) 09/22/24 07:15 Anion Gap 4 (3-11) 09/22/24 07:15 BUN 14 mg/dl (6-23) 09/22/24 07:15 Creatinine 0.81 mg/dl (0.6-1.4) 09/22/24 07:15 Est Cr Clr Drug Dosing 78.7 ml/min 09/22/24 07:15 eGFR 86.40 09/22/24 07:15 BUN/Creatinine Ratio 17.3 (10-20) 09/22/24 07:15 Glucose 93 mg/dl (70-99(Fasting)) 09/22/24 07:15 Calcium 9.4 mg/dl (8.6-10.3) 09/22/24 07:15 Phosphorus 3.6 mg/dl (2.5-4.9) 09/22/24 07:15 Magnesium 1.9 mg/dl (1.7-2.4) 09/22/24 07:15 C-Reactive Protein 1.35 mg/dl (0-0.5) H 09/22/24 07:15 Nasal Screen MRSA (PCR) Negative (Negative) 09/21/24 19:40 SARS-CoV-2, RNA, NAAT NEGATIVE (NEGATIVE) 09/21/24 13:45 Impressions Foot X-Ray 09/21/24 10:25 EXAM:Radiographs of the Right Foot 2 Views INDICATION: Heel ulcer. TECHNIQUE: Frontal and lateral views of the right foot. COMPARISON: No relevant prior studies available. FINDINGS: Bones/joints: The bones are demineralized. There are age-indeterminate nondisplaced fractures base of the second, third and fifth proximal phalanges. There is relative lucency of the head of the distal fifth metatarsal. On the lateral view there may be a focal erosion of the fifth proximal phalanx. There is marked hypertrophic change of the distal first metatarsal. There is diffuse joint space narrowing most notably involving the first metatarsophalangeal joint. Soft tissues: Severe soft tissue swelling noted most prominent dorsally. No soft tissue gas collection or radiopaque foreign body noted. There is dense vascular calcification. IMPRESSION: 1. I cannot exclude osteomyelitis about the fifth metatarsal phalangeal joint. Consider MRI. 2. Intact calcaneus. 3. Severe cellulitis atherosclerosis. ACT 112: Negative or not required by law. Electronically signed by Nubia Blue 09-21-2024 11:[address] 09/21/24 11:22 EXAM: CT Right Lower Extremity Without Intravenous Contrast Foot INDICATION: Evaluate for osteomyelitis. TECHNIQUE: Axial computed tomography images of the right foot without intravenous contrast. Sagittal and coronal reformatted images were created and reviewed. This CT exam was performed using one or more of the following dose reduction techniques: automated exposure control, adjustment of the mA and/or kV according to patient size, and/or use of iterative reconstruction technique. COMPARISON: Plain radiographs the same day. FINDINGS: Bones/joints: There is heterogeneous density, hypertrophy and cortical surface irregularity few areas of well-defined cortical loss of the distal first metatarsal and base of the first proximal phalanx. There is no aggressive periosteal reaction. The bones are generally demineralized. There is a focal segment of cortical loss plantar aspect of the head of the second, third and fifth metatarsals. There is marked subchondral cystic change of the lateral aspect of the talus. There is mild subchondral cystic change of the anterior tibial articular surface and narrowing of the tibiotalar joint. Well-corticated ossicles typical of old fractures noted adjacent to the tip of the medial and lateral malleoli. No acute fracture. Soft tissues: There is severe subcutaneous edema most notable dorsum of the foot. There is no soft tissue gas. No organized collection noted. No radiopaque foreign body. Vasculature: Dense atherosclerosis noted diffusely. IMPRESSION: 1. There is heterogeneous density with hypertrophic change and some segments of cortical loss involving the distal first metatarsal and base of the first proximal phalanx. Acute on chronic osteomyelitis considered and could be further assessed with MRI or nuclear medicine scan as warranted. 2. There are foci of cortical loss involving the second, third and fifth metatarsals also concerning for osteomyelitis. 3. Severe cellulitis. There is no organized collection identified. 4. Degenerative changes of the tibiotalar joint. ACT 112: Negative or not required by law. Electronically signed by Nubia Blue 09-21-2024 13:10 PM Foot MRI 09/22/24 07:30 MRI OF THE RIGHT FOOT WITH AND WITHOUT CONTRAST CLINICAL HISTORY: concern for osteomyelitis, surgical planning COMPARISON STUDY: Right foot radiographs and CT of the right foot September 21, 2024. TECHNIQUE: Utilizing a 1.5 Belen magnet and dedicated coil, multiplanar, multiecho imaging of the right forefoot was performed pre and postcontrast administration. Intravenous injection of 10 cc of Gadavist was uneventful. FINDINGS: A wound along the medial aspect of the right first metatarsal head is present. There is moderate marrow edema and enhancement within the right first metatarsal head. Marrow signal on the T1-weighted sequence is mildly diminished. There is underlying bony erosion of the lateral cortex of the right first metatarsal. The findings are consistent with acute osteomyelitis. No associated fluid collection is identified to suggest an abscess. There is associated cellulitis. 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 No additional sites of marrow edema within the right forefoot are present. Tarsometatarsal joints are intact. There is extensive dorsal forefoot and midfoot edema. A wound of the medial right heel is partially imaged on this examination. No marrow edema is identified within visualized portions of the right calcaneus however the calcaneus is only partially imaged on this examination. IMPRESSION: 1. Findings consistent with acute osteomyelitis of the right first metatarsal head. Overlying wound with associated cellulitis. No abscess. 2. Partially imaged medial right heel wound. No evidence for acute osteomyelitis within the right calcaneus although calcaneus only partially imaged on this exam. 3. Extensive dorsal edema of the right foot. ACT 112: Negative or not required by law. Electronically signed by: Alexandr Watson M.D. 09/22/2024 10:37 AM (1) Osteomyelitis Laterality: right Osteomyelitis location: foot Osteomyelitis type: acute hematogenous Qualified Code(s): M86.071 - Acute hematogenous osteomyelitis, right ankle and foot (3) Open wound of right foot Encounter type: initial encounter Qualified Code(s): S91.301A - Unspecified open wound, right foot, initial encounter (6) HTN (hypertension) Hypertension type: essential hypertension Qualified Code(s): I10 - Essential (primary) hypertension (8) Lumbar spinal stenosis Neurogenic claudication status: unspecified Qualified Code(s): M48.061 - Spinal stenosis, lumbar region without neurogenic claudication
[2024-09-22] MEDS: DAPTOmycin 500 MG in SYRINGE 0 ML IV SCH (15:22)
--- NOTE | 2024-09-22 15:25 | Podiatry Consultation ---
Date of Consultation September 22, 2024 Assessment & Plan (1) Osteomyelitis: Laterality: right Osteomyelitis location: foot Osteomyelitis type: acute hematogenous Qualified Code(s): M86.071 - Acute hematogenous osteomyelitis, right ankle and foot (2) Cellulitis of right foot: (3) Open wound of right foot: Encounter type: initial encounter Qualified Code(s): S91.301A - Unspecified open wound, right foot, initial encounter (4) Other specified peripheral vascular diseases: Plan patient was examined and evaluated. We discussed at length the etiology and treatment of his right foot ulcerations. We discussed extensively that while we saw him in July and had optimism for improvement of the wound, given his relative acute nature at the time, with the failure of the wound to heal at this point, it does need to be treated more aggressively. We discussed that the 2 treatment options for this are resection of the infected nonviable bone, which would necessitate a first ray resection, versus 2 months of IV. Both of these hinge on having adequate vascular inflow. He has seen Dr. Tripp here in the past for this who had similar concerns with his blood flow, namely that if these wounds fail to heal he may need more aggressive treatment. It would be beneficial to reconsult if possible. For now, in order for Santyl was placed to be utilized daily with wound care/dressing changes. This can help debride the slough overlying the medial first metatarsal phalangeal joint and heel ulcerations, though the underlying tissue also would benefit from sharp debridement if his vascular status can tolerate this. We can take him to the operating room on if the patient opts for this more aggressive surgical resection. Patient understands and will consider his options. Further, I will work on reaching out to his to discuss these options in more depth. History of Present Illness Reason for Consultation: Right foot ulcerations/osteomyelitis Attending Physician: Kevon Tena MD History of Present Illness patient seen at bedside. He states that he has been sent to the hospital for treatment of these right foot wounds by his living facility and nursing staff there. He has been in wound care for treatment of these wounds since his hospitalization in July. He states everybody has suggested the wounds have been improving until recently when he has noticed some transient swelling and increased drainage to the wounds. 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 Further, we have seen him at his prior admission, though did not follow up with him afterwards as he was followinng up with the wound care team. Now, he denies any specific signs or symptoms of systemic infection. He is concerned that all imaging so far has revealed bone infection. He is unsure how aggressive he wants to treat this presumed bone infection and is interested in his options. He states he is very involved in his care and would like to be kept in the loop of all of his medical options/opinions. Allergies Allergy/AdvReac Type Severity Reaction Status Date / Time No Known Allergies Allergy Verified 09/11/24 13:05 Home Medications Medication Instructions Recorded Confirmed Type vit A 300 mcg-C 200 mg-E 27 1 tab PO QAM 10/08/18 09/21/24 History mg-lutein 2 mg and minerals tablet (Ocuvite with Lutein) cholecalciferol (vitamin D3) 25 25 mcg PO DAILY 03/02/23 09/21/24 History mcg (1,000 unit) capsule (Vitamin D3) gabapentin 100 mg capsule 100 mg PO DAILY 03/02/23 09/21/24 History gabapentin 100 mg capsule 200 mg PO HS 11/23/23 09/21/24 History B-complex with vitamin C 1 tab PO DAILY 07/24/24 09/21/24 History acetaminophen 650 mg 650 mg PO BID 07/24/24 09/21/24 History tablet,extended release atorvastatin 40 mg tablet 40 mg PO DAILY 07/24/24 09/21/24 History docusate sodium 50 mg capsule 100 mg PO DAILY PRN Constipation 07/24/24 09/21/24 History furosemide 40 mg tablet 40 mg PO AMHS 07/24/24 09/21/24 History metoprolol succinate 50 mg 50 mg PO AMHS 07/24/24 09/21/24 History tablet,extended release 24 hr polyethylene glycol 3350 17 gram 17 g PO DAILY PRN Constipation 07/24/24 09/21/24 History oral powder packet (Miralax) propylene glycol 0.6 % eye drops 1 drp OPB BID 07/24/24 09/21/24 History (Systane Balance) magnesium oxide 400 mg (241.3 mg 400 mg PO DAILY 08/13/24 09/21/24 History magnesium) tablet Blue Emu Arthritic Joint Ointment 1 applic topical UD 09/21/24 09/21/24 History acetaminophen 650 mg tablet 650 mg PO DAILY PRN Pain 09/21/24 09/21/24 History potassium chloride 10 mEq 10 meq PO BID 09/21/24 09/21/24 History tablet,extended release (Klor-Con) Patient History Medical History Abnormal ankle brachial index (MONA) Abnormal computed tomography of abdomen and pelvis Acute hypokalemia Vomiting Leukocytosis SBO (small bowel obstruction) Incarcerated hernia Incarcerated ventral hernia Leg edema Symptomatic anemia Acute GI bleeding Umbilical hernia Hx of spinal stenosis Family History Mother CHF (congestive heart failure) Social History Smoking Status: Former smoker Tobacco Type: Cigarettes Second Hand Exposure: No; Do You Dip or Chew Tobacco: No; Hx Alcohol Use: Yes Alcohol type: beer Alcohol Intake Frequency Comment: 6-7 beers/day Hx Substance Use: No Preferred Language: [place]an Communication Ability: Effective 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 Beliefs That Will Affect Care: None marital status: Current Living Situation: Personal Care Facility Current Living Situation Comment: [facility] current occupational status: retired Other Information That Helps Us Care for You: No Feels Safe at Home: Yes Safety Concerns: Feels Safe At This Time Physical Activity Frequency: Does not Exercise Assistive Devices: Walker Review of Systems Review of Systems: All systems reviewed & are unremarkable except as noted in HPI & below Constitutional: + malaise and + weakness; no fever, no c hills and no fatigue Eyes: no problem reported Ear, Nose, Mouth, Throat: no problem reported Respiratory: no problem reported Cardiovascular: + edema; no problem reported Gastrointestinal: no nausea, no vomiting and no problem reported Musculoskeletal: + radicular pain and + loss of height; n o problem reported Integumentary: + non-healing lesions, + skin ulcer, + w ounds and + erythema Neurologic: + loss of sensation, + numbness and + pa resthesia; no generalized weakness Psychiatric: no problem reported Physical Exam Physical Exam: Lower extremity focused exam: DP/PT pulses nonpalpable. CFT brisk to the digits. ulceration is maintained to the medial first metatarsal phalangeal joint, consistent with prior examination in July. Now, this wound measures 4 x 4 cm with a large central black eschar. The nature of this eschar is uncertain on clinical exam, with potential for necrotic tissue, including necrotic bone or muscle, or overlying scab and eschar formation. Upon review of the MRI, this does appear to be consistent with extensive necrosis of the metatarsal head itself which is directly visualized on MR imaging. This is further confirmed on CT imaging performed at this hospitalization. The dressing did have significant serous drainage noted as well. The medial heel ulceration is now open as well, measuring 3 x 4 cm with a necrotic central aspect noted as well. This does not probe to bone and imaging does not suggest underlying osteomyelitis as well. Still, this is dry with only scant serous drainage and no bleeding on palpation or clinical exam. His remained nonpalpable. Advanced trophic changes are noted to the lower extremity. CFT is brisk to the digits overall. Constitutional: WD/WN, vitals as above + ill appearing and + obese Eyes: PERRL, conjunctivae normal, anicteric sclerae ENMT: external ear and nose normal, oropharynx normal Neck: trachea midline, no thyromegaly normal visual inspection Respiratory: normal respiratory effort; no respiratory distress Cardiovascular: Rate/Rhythm: regular rate and regular rhythm Chest (Breasts): Chest: normal inspection of chest Gastrointestinal (Abdomen): Inspection/Auscultation: abdomen normal to inspection Percussion/Palpation: + abdomen tender and abdomen soft Musculoskeletal: no cyanosis or clubbing, extremities motor strength 5/5 Head/Neck/Chest: normocephalic and head atraumatic Extremities: extremities normal to inspection Neurologic: awake; no focal motor deficits Psychiatric: A+Ox3, euthymic affect Results & Data Vital Signs (Past 12 Hours) Vital Signs Temp Pulse Pulse Resp BP Pulse Ox O2 Del Method 09/22/24 13:56 68 09/22/24 12:31 Room Air 09/22/24 11:31 36.6 C 81 20 112/72 92 Room Air 09/22/24 08:09 36.8 C 63 18 123/75 96 Room Air 09/22/24 05:54 59 L 09/22/24 04:00 36.6 C 60 18 110/67 99 Room Air
[2024-09-22] MEDS: POLYETHYLENE (MIRALAX) 17 GM PACK PO PRN (18:44)
--- NOTE | 2024-09-23 08:15 | Vascular Medicine Consultation ---
Date of Consultation September 23, 2024 Assessment & Plan (1) Osteomyelitis: 2. Suspected PAD 3. AF not on anticoagulation 4. Lumbar stenosis with ambulator dysfunction, treatment 5. Lower extremity edema on maintenance diuretic Patient previously seen in the setting of pressure right lower extremity ulcers involving right medial first metatarsal head and right heel. Wound had been making some slow progress but now some deterioration and evidence of osteomyelitis involving first metatarsal head. Again with diminished pedal pulses on exam today. Previous imaging suggestive of possible inflow disease with monophasic waveforms throughout right right lower extremity arterial system. TBI normal but PVR severely reduced on right. Dr. Trimble is considering possible surgical resection later this week. Prior to surgery recommend proceeding with right lower extremity angiogram to assess adequacy of arterial blood supply to heal current or future surgical wound. Will plan to perform procedure via right radial/ulnar artery tomorrow. Please keep n.p.o. past midnight. History of Present Illness Attending Physician: Kevon Tena MD History of Present Illness Mr. Green is a very pleasant 83-year-old man seen today in hospital for lower extremity ulceration in the setting of suspected PAD. Previously seen with his Xiomy (retired wound nurse) at wound clinic 08/13/2024. Patient currently resides in assisted living at [facility]. Prior medical history remarkable for prediabetes, PAF (not on anticoagulation) hypertension, dyslipidemia, lumbar spinal stenosis and chronic lower extremity edema on Lasix. He is essentially wheelchair dependent secondary to ambulatory dysfunction from spinal stenosis. No prior vascular history. Wounds initially noted by tower foreman in June when he was seen at [facility] for nail care. Initially with wound over right first metatarsal head (his states was the size of a pencil eraser). Wounds quickly progressed and now with large superficial ulcer over right heel as well. Treated at wound care center starting 07/24/2024. Was referred to ED due to concern for cellulitis. Seen by podiatry (Dr. Trimble) and nonoperative management recommended. Foot x-ray without evidence of osteomyelitis. Treated with broad- spectrum antibiotics. Wound seemed to be making progress up until recently and was referred by SNF back to ED 09/21/2024 due to concern for worsening wound appearance. Imaging consistent with acute osteomyelitis of right first metatarsal head. Now on broad-spectrum IV antibiotics (Zosyn, daptomycin). Currently patient comfortable. Denies any pain. No fevers or chills. Recent vascular testing: Arterial duplex 07/2024: Monophasic waveforms throughout right lower extremity, diminished peroneal and delayed upstroke in DPA. Allergies Allergy/AdvReac Type Severity Reaction Status Date / Time No Known Allergies Allergy Verified 09/11/24 13:05 Home Medications Medication Instructions Recorded Confirmed Type vit A 300 mcg-C 200 mg-E 27 1 tab PO QAM 10/08/18 09/21/24 History mg-lutein 2 mg and minerals tablet (Ocuvite with Lutein) cholecalciferol (vitamin D3) 25 25 mcg PO DAILY 03/02/23 09/21/24 History mcg (1,000 unit) capsule (Vitamin D3) gabapentin 100 mg capsule 100 mg PO DAILY 03/02/23 09/21/24 History gabapentin 100 mg capsule 200 mg PO HS 11/23/23 09/21/24 History B-complex with vitamin C 1 tab PO DAILY 07/24/24 09/21/24 History acetaminophen 650 mg 650 mg PO BID 07/24/24 09/21/24 History tablet,extended release atorvastatin 40 mg tablet 40 mg PO DAILY 07/24/24 09/21/24 History docusate sodium 50 mg capsule 100 mg PO DAILY PRN Constipation 07/24/24 09/21/24 History furosemide 40 mg tablet 40 mg PO AMHS 07/24/24 09/21/24 History metoprolol succinate 50 mg 50 mg PO AMHS 07/24/24 09/21/24 History tablet,extended release 24 hr polyethylene glycol 3350 17 gram 17 g PO DAILY PRN Constipation 07/24/24 09/21/24 History oral powder packet (Miralax) propylene glycol 0.6 % eye drops 1 drp OPB BID 07/24/24 09/21/24 History (Systane Balance) magnesium oxide 400 mg (241.3 mg 400 mg PO DAILY 08/13/24 09/21/24 History magnesium) tablet Blue Emu Arthritic Joint Ointment 1 applic topical UD 09/21/24 09/21/24 History acetaminophen 650 mg tablet 650 mg PO DAILY PRN Pain 09/21/24 09/21/24 History potassium chloride 10 mEq 10 meq PO BID 09/21/24 09/21/24 History tablet,extended release (Klor-Con) Patient History Medical History Abnormal ankle brachial index (MONA) Abnormal computed tomography of abdomen and pelvis Acute hypokalemia Vomiting Leukocytosis SBO (small bowel obstruction) Incarcerated hernia Incarcerated ventral hernia Leg edema Symptomatic anemia Acute GI bleeding Umbilical hernia Hx of spinal stenosis Family History Mother CHF (congestive heart failure) Social History Smoking Status: Former smoker Tobacco Type: Cigarettes Second Hand Exposure: No; Do You Dip or Chew Tobacco: No; Hx Alcohol Use: Yes Alcohol type: beer Alcohol Intake Frequency Comment: 6-7 beers/day Hx Substance Use: No Preferred Language: Egyptian Communication Ability: Effective Retail Field Merchandiser Required: No Beliefs That Will Affect Care: Restorationist marital status: Current Living Situation: Personal Care Facility Current Living Situation Comment: [facility] current occupational status: retired Other Information That Helps Us Care for You: No Feels Safe at Home: Yes Safety Concerns: Feels Safe At This Time Physical Activity Frequency: Does not Exercise Assistive Devices: Walker Review of Systems Review of Systems: All systems reviewed & are unremarkable except as noted in HPI & below Physical Exam Physical Exam: General: Comfortable, no acute distress Eyes: Sclerae anicteric Lungs: Clear to auscultation bilaterally Cardiac: Distant heart sounds, regular, 2 out of 6 systolic ejection murmur Abdomen: Soft, nontender Neuro: Nonfocal Psych: Alert orient x3, normal affect and mood Extremities/Vascular: -- Diminished radial pulses -- Nonpalpable popliteal pulses -- Diminished DP/PT pulses bilaterally. Sluggish capillary refill bilaterally -- Trace to 1+ pedal edema -- Ulcers, dressed, no surrounding eryth rajesh. Images reviewed. Results & Data Vital Signs (Past 12 Hours) Vital Signs Temp Pulse Pulse Pulse Resp BP Pulse Ox 09/23/24 07:32 97.9 F 71 14 118/77 96 09/23/24 07:19 64 09/23/24 03:53 97.9 F 71 18 120/74 95 09/23/24 00:00 97.9 F 62 18 109/61 97 09/22/24 22:20 64 O2 Del Method 09/23/24 07:32 Room Air 09/23/24 07:19 09/23/24 03:53 Room Air 09/23/24 00:00 Room Air 09/22/24 22:20 PG Care Time/CCT Total # of Minutes Spent Total Time Spent with Patient: Total time spent is greater than 50% in coordination of care (as documented) at patient's floor/unit and/or counseling patient: Coding Level of Care Code 14142 INT INP/OBS CARE 2/55MIN Diagnoses Acute hematogenous osteomyelitis of right foot M86.071 Laterality: right Osteomyelitis location: foot Osteomyelitis type: acute hematogenous (1) Osteomyelitis Laterality: right Osteomyelitis location: foot Osteomyelitis type: acute hematogenous Qualified Code(s): M86.071 - Acute hematogenous osteomyelitis, right ankle and foot
[2024-09-23] MEDS: ENOXAPARIN INJ 40 MG/0.4 ML SYR SQ SCH (09:02)
--- NOTE | 2024-09-23 11:55 | Hospitalist Progress Note ---
Date of Service September 23, 2024 Assessment & Plan (1) Osteomyelitis: Plan: -CT and xray in ED revealed cocnern for osteomyelitis and cellulitis -patient hemodynamically stable with mild leukocytosis -on exam purulent drainage and smell noted, elevated ESR/CRP -does see wound care outpatient, treated with betadine and acquacell, offloading with prevalon boots -needs surgical debridement if able, will need angiogram to determine blood flow and healing potential Plan: -plan for angiogram tentatively tomorrow with interventional cardiology, appreciate assistance -podiatry consult, appreciate recs -blood and wound cultures ordered -continue zosyn/dapto, deescalate based on culture data -ID consult once culture data avaliable, 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 metoprolol, not on AC Plan: -discuss anticoagulation outpatient with PCP (5) Prediabetes: Plan: -could be contributing factor to wounds (6) HTN (hypertension): Plan: -hold home BP meds while on dapto (7) Hyponatremia: Plan: -chronic, hx of SIADH (8) Lumbar spinal stenosis: Plan: - pain control, cont. gabapentin Plan Feeding/fluids: regular Analgesia: gabapentin, tylenol Sedation: na Thromboprophylaxis: lovenox Head up position: na Ulcer prophylaxis: na Glycemic control: na Spontaneous breathing trial: na Bowel care: miralax prn Indwelling catheter removal: na Deescalation of antibiotics: based on culture data Admission and Anticipated Discharge Date Admission Date: September 21, 2024 Subjective Patient seen and examined at bedside. Patient is doing well today. Patient pleased with the care he is getting here. Looking forward to angiogram and X- Prep's. Review of Systems Review of Systems: CONSTITUTIONAL: Patient denies fevers, chills, sweats and weight changes. EYES: Patient denies any visual symptoms. EARS, NOSE, AND THROAT: No difficulties with hearing. No symptoms of rhinitis or sore throat. CARDIOVASCULAR: Patient denies chest pains, palpitations, orthopnea and paroxysmal nocturnal dyspnea. RESPIRATORY: No dyspnea on exertion, no wheezing or cough. GI: No nausea, vomiting, diarrhea, constipation, abdominal pain, hematochezia or melena. : No urinary hesitancy or dribbling. No nocturia or urinary frequency. No abnormal urethral discharge. MUSCULOSKELETAL: right foot drainage and pain, improved from yesterday NEUROLOGIC: No chronic headaches, no seizures. Patient denies numbness, tingling or weakness. PSYCHIATRIC: Patient denies problems with mood disturbance. No problems with anxiety. ENDOCRINE: No excessive urination or excessive thirst. DERMATOLOGIC: Patient denies any rashes or skin changes. Physical Exam Physical Exam: Gen: A&O 3 NAD HEENT: NCAT, EOMI, not icteric. External ears normal. No rhinorrhea. Moist mucous membranes. Neck: Supple, full range of motion, no observable masses, No meningeal sign. Lungs: No Respiratory distress. CV: RRR, no edema. Abdomen: Soft, nondistended, No rebound tenderness. MSK: right foot with heel and 1st digit purulence and smell Skin: No rashes, petechiae, lesions. Normal color per patient. Neuro: Normal Gait, Grossly intact. Psych: Appropriate for situation. Results & Data Results & Data Vital Signs (Past 12 Hours) Vital Signs Temp Pulse Pulse Pulse Resp BP Pulse Ox 09/23/24 10:34 36.6 C 76 14 110/62 95 09/23/24 07:32 36.6 C 71 14 118/77 96 09/23/24 07:19 64 09/23/24 03:53 36.6 C 71 18 120/74 95 09/23/24 00:00 36.6 C 62 18 109/61 97 O2 Del Method 09/23/24 10:34 Room Air 09/23/24 07:32 Room Air 09/23/24 07:19 09/23/24 03:53 Room Air 09/23/24 00:00 Room Air Laboratory Results Laboratory Results WBC 8.28 K/ul (4.8-10.8) 09/22/24 07:15 RBC 4.09 M/uL (4.70-6.10) L 09/22/24 07:15 Hgb 12.5 g/dl (14.0-18.0) L 09/22/24 07:15 Hct 37.7 % (42.0-52.0) L 09/22/24 07:15 MCV 92.2 fL (80.0-100.0) 09/22/24 07:15 MCH 30.6 pg (25.0-34.0) 09/22/24 07:15 MCHC 33.2 g/dL (32.0-36.0) 09/22/24 07:15 RDW Std Deviation 50.0 fL (36.4-46.3) H 09/22/24 07:15 RDW Coeff of Steven 14.8 % (11.5-14.5) H 09/22/24 07:15 Plt Count 193 K/uL (130-400) 09/22/24 07:15 MPV 10.8 fL (9.4-12.4) 09/22/24 07:15 Immature Gran % (Auto) 0.2 % 09/22/24 07:15 Neut % (Auto) 65.7 % 09/22/24 07:15 Lymph % (Auto) 20.5 % 09/22/24 07:15 Glenn % (Auto) 8.3 % 09/22/24 07:15 Eos % (Auto) 4.7 % 09/22/24 07:15 Baso % (Auto) 0.6 % 09/22/24 07:15 Neut # (Auto) 5.43 K/uL (1.40-6.50) 09/22/24 07:15 Lymph # (Auto) 1.70 K/uL (1.20-3.40) 09/22/24 07:15 Glenn # (Auto) 0.69 K/uL (0.11-0.59) H 09/22/24 07:15 Eos # (Auto) 0.39 K/uL (0.00-0.50) 09/22/24 07:15 Baso # (Auto) 0.05 K/uL (0.00-0.20) 09/22/24 07:15 Immature Gran # (Auto) 0.02 K/uL (0.01-0.20) 09/22/24 07:15 ESR 45 mm/hr (0-20) H 09/22/24 07:15 Sodium 138 mmol/L (136-145) 09/22/24 07:15 Potassium 4.0 mmol/L (3.5-5.1) 09/22/24 07:15 Chloride 104 mmol/L (98-107) 09/22/24 07:15 Carbon Dioxide 30 mmol/L (21-32) 09/22/24 07:15 Anion Gap 4 (3-11) 09/22/24 07:15 BUN 14 mg/dl (6-23) 09/22/24 07:15 Creatinine 0.81 mg/dl (0.6-1.4) 09/22/24 07:15 Est Cr Clr Drug Dosing 78.7 ml/min 09/22/24 07:15 eGFR 86.40 09/22/24 07:15 BUN/Creatinine Ratio 17.3 (10-20) 09/22/24 07:15 Glucose 93 mg/dl (70-99(Fasting)) 09/22/24 07:15 Calcium 9.4 mg/dl (8.6-10.3) 09/22/24 07:15 Phosphorus 3.6 mg/dl (2.5-4.9) 09/22/24 07:15 Magnesium 1.9 mg/dl (1.7-2.4) 09/22/24 07:15 C-Reactive Protein 1.35 mg/dl (0-0.5) H 09/22/24 07:15 Nasal Screen MRSA (PCR) Negative (Negative) 09/21/24 19:40 SARS-CoV-2, RNA, NAAT NEGATIVE (NEGATIVE) 09/21/24 13:45 Impressions Foot X-Ray 09/21/24 10:25 EXAM:Radiographs of the Right Foot 2 Views INDICATION: Heel ulcer. TECHNIQUE: Frontal and lateral views of the right foot. COMPARISON: No relevant prior studies available. FINDINGS: Bones/joints: The bones are demineralized. There are age-indeterminate nondisplaced fractures base of the second, third and fifth proximal phalanges. There is relative lucency of the head of the distal fifth metatarsal. On the lateral view there may be a focal erosion of the fifth proximal phalanx. There is marked hypertrophic change of the distal first metatarsal. There is diffuse joint space narrowing most notably involving the first metatarsophalangeal joint. Soft tissues: Severe soft tissue swelling noted most prominent dorsally. No soft tissue gas collection or radiopaque foreign body noted. There is dense vascular calcification. IMPRESSION: 1. I cannot exclude osteomyelitis about the fifth metatarsal phalangeal joint. Consider MRI. 2. Intact calcaneus. 3. Severe cellulitis atherosclerosis. ACT 112: Negative or not required by law. Electronically signed by Nubia Blue 09-21-2024 11:[address] 09/21/24 11:22 EXAM: CT Right Lower Extremity Without Intravenous Contrast Foot INDICATION: Evaluate for osteomyelitis. TECHNIQUE: Axial computed tomography images of the right foot without intravenous contrast. Sagittal and coronal reformatted images were created and reviewed. This CT exam was performed using one or more of the following dose reduction techniques: automated exposure control, adjustment of the mA and/or kV according to patient size, and/or use of iterative reconstruction technique. COMPARISON: Plain radiographs the same day. FINDINGS: Bones/joints: There is heterogeneous density, hypertrophy and cortical surface irregularity few areas of well-defined cortical loss of the distal first metatarsal and base of the first proximal phalanx. There is no aggressive periosteal reaction. The bones are generally demineralized. There is a focal segment of cortical loss plantar aspect of the head of the second, third and fifth metatarsals. There is marked subchondral cystic change of the lateral aspect of the talus. There is mild subchondral cystic change of the anterior tibial articular surface and narrowing of the tibiotalar joint. Well-corticated ossicles typical of old fractures noted adjacent to the tip of the medial and lateral malleoli. No acute fracture. Soft tissues: There is severe subcutaneous edema most notable dorsum of the foot. There is no soft tissue gas. No organized collection noted. No radiopaque foreign body. Vasculature: Dense atherosclerosis noted diffusely. IMPRESSION: 1. There is heterogeneous density with hypertrophic change and some segments of cortical loss involving the distal first metatarsal and base of the first proximal phalanx. Acute on chronic osteomyelitis considered and could be further assessed with MRI or nuclear medicine scan as warranted. 2. There are foci of cortical loss involving the second, third and fifth metatarsals also concerning for osteomyelitis. 3. Severe cellulitis. There is no organized collection identified. 4. Degenerative changes of the tibiotalar joint. ACT 112: Negative or not required by law. Electronically signed by Nubia Blue 09-21-2024 13:10 PM Foot MRI 09/22/24 07:30 MRI OF THE RIGHT FOOT WITH AND WITHOUT CONTRAST CLINICAL HISTORY: concern for osteomyelitis, surgical planning COMPARISON STUDY: Right foot radiographs and CT of the right foot September 21, 2024. TECHNIQUE: Utilizing a 1.5 Belen magnet and dedicated coil, multiplanar, multiecho imaging of the right forefoot was performed pre and postcontrast a dministration. Intravenous injection of 10 cc of Gadavist was uneventful. FINDINGS: A wound along the medial aspect of the right first metatarsal head is present. There is moderate marrow edema and enhancement within the right first metatarsal head. Marrow signal on the T1-weighted sequence is mildly diminished. There is underlying bony erosion of the lateral cortex of the right first metatarsal. The findings are consistent with acute osteomyelitis. No associated fluid collection is identified to suggest an abscess. There is associated cellulitis. 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 No additional sites of marrow edema within the right forefoot are present. Tarsometatarsal joints are intact. There is extensive dorsal forefoot and midfoot edema. A wound of the medial right heel is partially imaged on this examination. No marrow edema is identified within visualized portions of the right calcaneus however the calcaneus is only partially imaged on this examination. IMPRESSION: 1. Findings consistent with acute osteomyelitis of the right first metatarsal head. Overlying wound with associated cellulitis. No abscess. 2. Partially imaged medial right heel wound. No evidence for acute osteomyelitis within the right calcaneus although calcaneus only partially imaged on this exam. 3. Extensive dorsal edema of the right foot. ACT 112: Negative or not required by law. Electronically signed by: Alexandr Watson M.D. 09/22/2024 10:37 AM (1) Osteomyelitis Laterality: right Osteomyelitis location: foot Osteomyelitis type: acute hematogenous Qualified Code(s): M86.071 - Acute hematogenous osteomyelitis, right ankle and foot (3) Open wound of right foot Encounter type: initial encounter Qualified Code(s): S91.301A - Unspecified open wound, right foot, initial encounter (6) HTN (hypertension) Hypertension type: essential hypertension Qualified Code(s): I10 - Essential (primary) hypertension (8) Lumbar spinal stenosis Neurogenic claudication status: unspecified Qualified Code(s): M48.061 - Spinal stenosis, lumbar region without neurogenic claudication
--- NOTE | 2024-09-23 12:32 | Podiatry Progress Note ---
Date of Service September 23, 2024 Assessment & Plan (1) Osteomyelitis: (2) Cellulitis of right foot: (3) Open wound of right foot: (4) Other specified peripheral vascular diseases: Plan patient was examined and evaluated. - Discussed case with Dr. Tripp, who is in agreement with potential angiogram tomorrow. -Will schedule for first ray resection on , with ability to cancel if the angiogram suggests a higher level of arterial insufficiency. -Continue with Santyl until that time to help improve quality of both ulcerations. -Continue with IV antibiotics until surgery as well. -Patient and family are amenable to this and any changes to the plan will be discussed based on future findings. -Will follow. Admission and Anticipated Discharge Date Admission Date: September 21, 2024 Subjective Patient seen at bedside. Resting comfortably with his [id number] and . No new concerns. States he believes he is scheduled for an angiogram tomorrow. Review of Systems Constitutional: + malaise and + weakness; no fever, no c hills and no fatigue Eyes: no problem reported Ear, Nose, Mouth, Throat: no problem reported Respiratory: no problem reported Cardiovascular: + edema; no problem reported Gastrointestinal: no nausea, no vomiting and no problem reported Musculoskeletal: + radicular pain and + loss of height; n o problem reported Integumentary: + non-healing lesions, + skin ulcer, + w ounds and + erythema Neurologic: + loss of sensation, + numbness and + pa resthesia; no generalized weakness Psychiatric: no problem reported Physical Exam Physical Exam: Lower extremity focused exam: DP/PT pulses nonpalpable. CFT brisk to the digits. ulceration is maintained to the medial first metatarsal phalangeal joint, consistent with prior examination in July. Now, this wound measures 4 x 4 cm with a large central black eschar. The nature of this eschar is uncertain on clinical exam, with potential for necrotic tissue, including necrotic bone or muscle, or overlying scab and eschar formation. Eschar is softened compared to yesterday, consistent with local wound care since that time. Upon review of the MRI, this does appear to be consistent with extensive necrosis of the metatarsal head itself which is directly visualized on MR imaging. This is further confirmed on CT imaging performed at this hospitalization. The dressing did have significant serous drainage noted as well. The medial heel ulceration is now open as well, measuring 3 x 4 cm with a necrotic central aspect noted as well. This does not probe to bone and imaging does not suggest underlying osteomyelitis as well. Still, this is dry with only scant serous drainage and no bleeding on palpation or clinical exam. His remained nonpalpable. Advanced trophic changes are noted to the lower extremity. CFT is brisk to the digits overall. Constitutional: WD/WN, vitals as above + ill appearing and + obese Eyes: PERRL, conjunctivae normal, anicteric sclerae ENMT: external ear and nose normal, oropharynx normal Neck: trachea midline, no thyromegaly normal visual inspection Respiratory: normal respiratory effort; no respiratory distress Cardiovascular: Rate/Rhythm: regular rate and regular rhythm Chest (Breasts): Chest: normal inspection of chest Gastrointestinal (Abdomen): Inspection/Auscultation: abdomen normal to inspection Percussion/Palpation: + abdomen tender and abdomen soft Musculoskeletal: no cyanosis or clubbing, extremities motor strength 5/5 Head/Neck/Chest: normocephalic and head atraumatic Extremities: extremities normal to inspection Neurologic: awake; no focal motor deficits Psychiatric: A+Ox3, euthymic affect Results & Data Results & Data Vital Signs (Past 12 Hours) Vital Signs Temp Pulse Pulse Pulse Resp BP Pulse Ox 09/23/24 10:34 36.6 C 76 14 110/62 95 09/23/24 07:32 36.6 C 71 14 118/77 96 09/23/24 07:19 64 09/23/24 03:53 36.6 C 71 18 120/74 95 O2 Del Method 09/23/24 10:34 Room Air 09/23/24 07:32 Room Air 09/23/24 07:19 09/23/24 03:53 Room Air (1) Osteomyelitis Laterality: right Osteomyelitis location: foot Osteomyelitis type: acute hematogenous Qualified Code(s): M86.071 - Acute hematogenous osteomyelitis, right ankle and foot (3) Open wound of right foot Encounter type: initial encounter Qualified Code(s): S91.301A - Unspecified open wound, right foot, initial encounter
[2024-09-23] MEDS: COLLAGENASE OINT 30 GM TUBE EXT SCH (12:58)
[2024-09-23] MEDS: ACETAMINOPHEN 325 MG TAB PO PRN (13:49)
[2024-09-23 15:04] LABS: Hematocrit (blood only) 35.5 % (42.0-52.0); Mean Corpuscular Hemoglobin 30.6 pg (25.0-34.0); Mean Corpuscular Hgb Conc 33.8 g/dL (32.0-36.0); Mean Corpuscular Volume 90.6 fL (80.0-100.0); Mean Platelet Volume 10.6 fL (9.4-12.4); Platelet Count 195 K/uL (130-400); RDW Coefficient of Variation 14.6 % (11.5-14.5); RDW Standard Deviation 48.5 fL (36.4-46.3); Red Blood Count 3.92 M/uL (4.70-6.10); White Blood Count 8.41 K/ul (4.8-10.8)
[2024-09-23 15:16] LABS: BUN Creatinine Ratio 19.7 (10-20); Creatinine Clr Calc Pharmacy 89.9 ml/min; Potassium 3.5 mmol/L (3.5-5.1)
[2024-09-24 09:34] LABS: Hematocrit (blood only) 36.5 % (42.0-52.0); Hemoglobin 12.3 g/dl (14.0-18.0); Mean Corpuscular Hemoglobin 30.4 pg (25.0-34.0); Mean Corpuscular Hgb Conc 33.7 g/dL (32.0-36.0); Mean Corpuscular Volume 90.3 fL (80.0-100.0); Mean Platelet Volume 10.7 fL (9.4-12.4); Platelet Count 190 K/uL (130-400); RDW Coefficient of Variation 14.6 % (11.5-14.5); RDW Standard Deviation 48.1 fL (36.4-46.3); Red Blood Count 4.04 M/uL (4.70-6.10); White Blood Count 8.23 K/ul (4.8-10.8)
[2024-09-24 09:49] LABS: BUN Creatinine Ratio 17.1 (10-20); Calcium 9.4 mg/dl (8.6-10.3); Creatinine Clr Calc Pharmacy 91.7 ml/min; Potassium 3.6 mmol/L (3.5-5.1)
[2024-09-24 09:58] LABS: INR 1.1 (0.9-1.1); Partial Thromboplastin Ratio 1.1; Partial Thromboplastin Time 30 Seconds (21-31); Prothrombin Time 11.9 Seconds (9.0-12.0)
--- NOTE | 2024-09-24 12:18 | Pre Anesthesia Assessment ---
Date of Service September 24, 2024 Pre Sedation Assessment Vital Signs Temp Pulse Pulse Resp BP Pulse Ox O2 Del Method 09/24/24 11:15 97.5 F L 56 L 19 126/64 98 Room Air 09/24/24 09:20 Room Air 09/24/24 08:19 98.1 F 66 18 120/59 L 96 Room Air 09/24/24 07:13 52 L 09/24/24 03:56 97.9 F 63 18 118/66 94 Room Air 09/23/24 22:16 97.5 F L 61 18 120/58 L 97 Room Air 09/23/24 22:09 61 09/23/24 20:55 98.1 F 73 16 114/67 94 Room Air 09/23/24 15:33 99.1 F 91 H 18 129/76 94 Room Air 09/23/24 13:30 70 Cardiovascular + regular rate Respiratory + respiratory effort normal Pre-Sedation Airway Assessment Smoking Status: Former smoker Hx Sleep Apnea: No Hx Difficult Intubation: No Short, Thick Neck: Yes Thyromental Distance: > or= 3.5 Finger Breadths Oral Cavity: + Dentures and + WNL Mallampati Class: III ASA: ASA3 NPO Status Date of Last Intake of Fluids: 09/24/24 Time of Last Intake of Fluids: 05:00 Date of Last Intake of Solid Food: 09/23/24 Time of Last Intake of Solid Foods: 21:00 Procedure Planning Contraindications for Sedation: none Current Medications Reviewed: Yes Notes The planned sedation has been discussed with the patient. Informed Consent was obtained. I have identified the patient, determined the appropriateness of sedation and have assessed the patient immediately prior to the procedure. All medicine(s) and interventions are by my order.
[2024-09-24] MEDS: LIDOCAINE 1% LOCAL 20 ML VIAL ONE (13:08)
[2024-09-24] MEDS: niCARdipine 2,000 MCG/20 ML SYR ONE (13:08)
[2024-09-24] MEDS: NITROGLYCERIN/D5W 100MCG/ML 20ML SYR ONE (13:09)
[2024-09-24] MEDS: fentaNYL citrate PF 100 MCG/2 ML VIAL ONE ×2 (13:10→13:22)
[2024-09-24] MEDS: MIDAZOLAM HCL 1 MG/ML 2ML VIAL ONE ×2 (13:10→13:20)
[2024-09-24] MEDS: HEPARIN (PORCINE) 1000 UNIT/ML 10 ML (CATH LAB USE ONLY) ONE (13:18)
[2024-09-24] MEDS: OPTIRAY 350 ONE (13:21)
--- NOTE | 2024-09-24 13:33 | Post Anesthesia Assessment ---
Date of Service September 24, 2024 Post Sedation Assessment Vital Signs Temp Pulse Pulse Resp BP Pulse Ox O2 Del Method 09/24/24 11:15 97.5 F L 56 L 19 126/64 98 Room Air 09/24/24 09:20 Room Air 09/24/24 08:19 98.1 F 66 18 120/59 L 96 Room Air 09/24/24 07:13 52 L 09/24/24 03:56 97.9 F 63 18 118/66 94 Room Air 09/23/24 22:16 97.5 F L 61 18 120/58 L 97 Room Air 09/23/24 22:09 61 09/23/24 20:55 98.1 F 73 16 114/67 94 Room Air 09/23/24 15:33 99.1 F 91 H 18 129/76 94 Room Air Recovery Score Activity: Moves 4 extremities Respiration: Deep Breath/Cough Circulation: +/-20% PreAnes Value Consciousness: Fully Awake Oxygen Saturation: O2 needed for >90% Discharge Sedation Level of Care: Fast Track Phase II Post Sedation Plan On clinical assessment, the patient appears to have tolerated the sedation without complications. Patient is recovering as anticipated. Patient will continue to be monitored by nursing and may be discharged when sed ation discharge criteria are met per below protocol. Upon Completions of procedure up to 15 minutes continue every 5 minute vital signs and the P.A.R. score; then discharge to a Phase I or Fast Track to Phase II per the following guidelines: * Discharge Patient to appropriate Phase II area if PAR is 8 or greater or return to pre- procedure baseline. The post - procedure orders will be as directed. * If PAR score is less than 8 or not return to pre-procedure baseline then patient will follow Phase I monitoring till PAR is reached for Phase II. The Phase I may be done in procedure room or may call to secure a Phase I area. * If naloxone or flumazenil are used for reversal, hold in Phase I for continued monitoring from when last reversal dose was given for a minimum of 60 minutes or longer pending the nurse and/or physician discretion of patient condition before discharge to Phase II. Please call the Sedation Physician to re-evaluate and complete post-note for discharge to Phase II area. Do NOT discharge from procedure sedation or Phase 1 until post- sedation evaluation note is complete by procedure /sedation MD Sedation Discharge Instructions to be given to the patient at discharge to home.
--- NOTE | 2024-09-24 13:38 | Post Operative Brief Note ---
PG Immediate Post Op with CF Date of Surgery September 24, 2024 Pre & Post Diagnosis Peripheral arterial disease I identified the patient and participated in the time-out.: Yes Procedure RLE Angiogram Surgeon Raj Tripp MD [employer] Professional Coleen Galvez Estimated Blood Loss 30 Findings See Below RT radial artery access under ultrasound guidance RLE Findings: 80-90% ostial RT JAMISON EIA, GIS COORDINATOR, SFA widely patent 40-50% mid popliteal 3 vessel distal runoff - RAMON, BATCH ROLLER OPERATOR patent into the foot. DPA extends to forefoot. Direct inline flow to wound bed. Feel blood supply should be adequate for wound healing and intervention to iliac unlikely to improve chances at wound salvage. From a vascular standpoint OK to move forward with surgical resection of osteomyelitis. Anesthesia Type RN Sedation Complications none Disposition Accompanied Patient To Recovery: Yes
--- NOTE | 2024-09-24 16:55 | Hospitalist Progress Note ---
Date of Service September 24, 2024 Assessment & Plan (1) Cellulitis of right foot: Plan 83-year-old male with PMH of paroxysmal A-fib, HTN, HLD, alcohol use, hyponatremia, SIADH, prostatitis, B12 deficiency and lumbar spinal stenosis presented from [facility] with a foot wound that is worsening. He is being managed for the following: Right foot osteomyelitis MRI right foot with acute osteomyelitis of the right first metatarsal head, overlying wound with associated cellulitis. No abscess. Status post RLE angiogram 09/24, okay to move forward with surgical resection of osteomyelitis from vascular standpoint. Podiatry on board, n.p.o. midnight. Continue with daptomycin 09/22 and Zosyn 09/21. ID consult. 09/24 CPK 192. Hold home statin while on dapto. 09/21 foot culture reviewed, follow-up admitting blood culture. Wound care. Elevate legs. Other chronic medical conditions: Continue with/resume home meds as and when able. PAF: Continue metoprolol, not on AC. Discuss anticoagulation outpatient with PCP. Hypertension: Continue with home medications. Hyponatremia, SIADH: Monitor sodium level as needed. Lumbar spinal stenosis: Pain control, continue gabapentin. DVT prophylaxis: Enoxaparin Full code Admission and Anticipated Discharge Date Admission Date: September 21, 2024 Subjective Patient was seen and examined at bedside. Patient was lying in bed, on room air, NAD, resting comfortably. Patient reports no RLE pain, reports feeling better. Patient denies fever/sore throat/cough/chest pain. Patient's and [id number] at bedside were also updated on plan of care. Physical Exam Physical Exam: Gen: A&O 3 NAD HEENT: NCAT, EOMI, not icteric. External ears normal. No rhinorrhea. Moist mucous membranes. Neck: Supple, full range of motion, no observable masses, No meningeal sign. Lungs: No Respiratory distress. CV: RRR, no edema. Abdomen: Soft, nondistended, No rebound tenderness. MSK: right foot with heel and 1st digit purulence and smell Skin: No rashes, petechiae, lesions. Normal color per patient. Neuro: Normal Gait, Grossly intact. Psych: Appropriate for situation. Results & Data Results & Data Vital Signs (Past 12 Hours) Vital Signs Temp Pulse Pulse Resp BP Pulse Ox O2 Del Method 09/24/24 16:15 55 L 16 174/79 H 99 Room Air 09/24/24 15:00 36.4 C L 52 L 18 141/81 H 96 Room Air 09/24/24 14:15 51 L 19 145/69 H 93 Room Air 09/24/24 14:00 61 19 138/60 93 Room Air 09/24/24 13:45 56 L 19 128/55 L 93 Room Air 09/24/24 13:34 56 L 19 132/67 94 Room Air 09/24/24 11:15 36.4 C L 56 L 19 126/64 98 Room Air 09/24/24 09:20 Room Air 09/24/24 08:19 36.7 C 66 18 120/59 L 96 Room Air 09/24/24 07:13 52 L
[2024-09-24] MEDS: FUROSEMIDE 40 MG TAB PO SCH (21:33)
--- NOTE | 2024-09-24 22:22 | Endovascular Procedure Note ---
PG Endovascular Procedure Rpt Pre & Post Diagnosis Peripheral artery disease I identified the patient and participated in the time-out.: Yes Procedure Moderate sedation Ultrasound-guided vascular access Abdominal aorta angiogram Third order selective right lower extremity angiography Surgeon Raj Tripp MD Senior It Architect Coleen Galvez Estimated Blood Loss 30 Findings See Below Abdominal aorta--calcified, no significant aneurysmal or stenotic disease Right lower extremity-- -Common iliac80 to 90% focal ostial stenosis with calcified nodule (pullback gradient 40 mmHg). -External iliaclarge-caliber, calcified, widely patent -Internal iliacpatent -LDR NURSE, profunda widely patent -SFAcalcified, 30% mid, distal disease -Poplitealcalcified nodules and proximal to mid segment with 40-50% stenosis -ATAcalcified, widely patent into the foot -PTAcalcified, widely patent into the foot -Peronealcalcified, diffuse proximal to mid disease and tapers prior to echo. -DPA small caliber, calcified, extends to forefoot and metatarsal wound base, medial/lateral plantar arteries diffusely diseased proximally and tapered to midfoot Left lower extremity-- -Common iliaclarge caliber, calcified, widely patent -External iliaclarge caliber, calcified, widely patent Anesthesia Type RN Sedation Radiation Exposure (mGv) Radiation (mGy): 493 Contrast Contrast: 90 Complications none Disposition Accompanied Patient To Recovery: Yes Disposition: Tutorial Laboratory Supervisor Holding Description of Procedure Initial attempt made at right ulnar access point unable to pass wire. Right radial artery access obtained under ultrasound guidance with placement of long (20 cm) 6 Fr sheath Pigtail navigated to abdominal aorta over right advantage wire. Abdominal aortogram via pigtail. Proximal selective angiography right lower extremity with MPA placed to right JAMISON More distal angiography performed with 150 cm seeker 0.35 support catheter placed to right SFA Post angiography catheter removed and TR band placed. Contrast used: 90 Moderate sedation: [id number] Access closure: TR band Summary: 1. Right lower extremity --80-90% calcified nodule at right common iliac ostium. Remainder of iliacs, femoral arteries widely patent. 40% calcified nodular proximal popliteal. Brisk three-vessel infrapopliteal runoff. DPA patent and extends to forefoot/first metatarsal wound bed. Recommendations: Patient has focal right JAMISON stenosis but brisk flow without obstructive disease throughout the remainder of right lower extremity arterial system including direct inline flow to wound bed via patent DPA. Feel arterial blood supply should be adequate for wound healing (recent toe pressure 88 mmHg). Stenting of right JAMISON stenosis elevated risk and unlikely to impact wound healing or limb salvage. Recommend conservative management of PAD at this time. From a vascular standpoint feel can proceed with planned surgical resection of osteomyelitis. Continued ASCVD risk factor modification I attest to the content of the Intraoperative Record and any orders documented therein. Any exceptions are noted below. Vascular Charges Angiography/Venography Procedure 1: Angiography/Venography charges: [id number] Initial 3rd order or selective abd, pelvic, or LE branch Procedure 2: Angiography/Venography charges: [id number] Aortography, abd + b/l iliofem LE, catheter, radiological S&I Additional Services Procedure 1: Additional Services Charges: 44405 Ultrasound guidance - vascular access Procedure 2: Additional Services Charges: 68067 Moderate sedation initial 15 min Procedure 3: Additional Services Charges: 55028 Moderate sedation, each additional 15 min
--- NOTE | 2024-09-24 22:32 | Vascular Medicine ProgressNote ---
Date of Service September 24, 2024 Assessment & Plan (1) Osteomyelitis: Plan: 2. PADfocal right JAMISON stenosis. Widely patent remainder of right lower extremity. Toe pressure 88 mmHg 3. AF not on anticoagulation 4. Lumbar stenosis with ambulator dysfunction, treatment 5. Lower extremity edema on maintenance diuretic Reviewed findings of angiogram with patient and family. Has focal right JAMISON stenosis but remainder arterial system widely patent including three-vessel distal runoff and direct inline flow to forefoot/first metatarsal wound bed via DPA. Feel arterial blood supply should be adequate for wound healing. Recommend noninvasive management of PAD. If deemed appropriate by podiatry feel can proceed from a vascular standpoint with surgical debridement of osteomyelitis Plan on continued ASCVD secondary prevention. Continue current statin. Would add aspirin 81 mg daily. Long-term okay with additional compressive therapy for right lower extremity edema Admission and Anticipated Discharge Date Admission Date: September 21, 2024 Subjective Seen with family post procedure today. Feeling well. No pain at right radial artery access site. No pain in right foot. Review of Systems Review of Systems: All systems reviewed & are unremarkable except as noted in HPI & below Physical Exam Physical Exam: General: Comfortable, no acute distress Eyes: Sclerae anicteric Lungs: Clear to auscultation bilaterally Cardiac: Distant heart sounds, regular, 2 out of 6 systolic ejection murmur Abdomen: Soft, nontender Neuro: Nonfocal Psych: Alert orient x3, normal affect and mood Extremities/Vascular: -- TR band of the right radial artery -- Diminished DP/PT pulses bilaterally. -- Trace to 1+ pedal edema -- Ulcers, dressed, no surrounding eryth rajesh. Images reviewed. Results & Data Vital Signs (Past 12 Hours) Vital Signs Temp Pulse Resp BP Pulse Ox Pulse Ox O2 Del Method 09/24/24 19:35 98.1 F 79 22 129/76 96 Room Air 09/24/24 19:12 Room Air 09/24/24 16:15 55 L 16 174/79 H 99 Room Air 09/24/24 15:00 94 09/24/24 15:00 97.5 F L 52 L 18 141/81 H 96 Room Air 09/24/24 14:15 51 L 19 145/69 H 93 Room Air 09/24/24 14:00 61 19 138/60 93 Room Air 09/24/24 13:45 56 L 19 128/55 L 93 Room Air 09/24/24 13:34 56 L 19 132/67 94 Room Air 09/24/24 11:15 97.5 F L 56 L 19 126/64 98 Room Air O2 Del Method 09/24/24 19:35 09/24/24 19:12 09/24/24 16:15 09/24/24 15:00 Room Air 09/24/24 15:00 09/24/24 14:15 09/24/24 14:00 09/24/24 13:45 09/24/24 13:34 09/24/24 11:15 PG Care Time/CCT Total # of Minutes Spent Total Time Spent with Patient: Total time spent is greater than 50% in coordination of care (as documented) at patient's floor/unit and/or counseling patient: Coding Level of Care Code 72581 SUB INP/OBS CARE 3/50MIN Diagnoses Acute hematogenous osteomyelitis of right foot M86.071 Laterality: right Osteomyelitis location: foot Osteomyelitis type: acute hematogenous (1) Osteomyelitis Laterality: right Osteomyelitis location: foot Osteomyelitis type: acute hematogenous Qualified Code(s): M86.071 - Acute hematogenous osteomyelitis, right ankle and foot
[2024-09-25 08:28] LABS: Hematocrit (blood only) 35.5 % (42.0-52.0); Hemoglobin 12.1 g/dl (14.0-18.0); Mean Corpuscular Hemoglobin 31.4 pg (25.0-34.0); Mean Corpuscular Hgb Conc 34.1 g/dL (32.0-36.0); Mean Corpuscular Volume 92.2 fL (80.0-100.0); Platelet Count 201 K/uL (130-400); RDW Coefficient of Variation 14.6 % (11.5-14.5); RDW Standard Deviation 49.2 fL (36.4-46.3); Red Blood Count 3.85 M/uL (4.70-6.10); White Blood Count 9.15 K/ul (4.8-10.8)
[2024-09-25 08:53] LABS: BUN Creatinine Ratio 16.5 (10-20); Calcium 9.3 mg/dl (8.6-10.3); Creatinine Clr Calc Pharmacy 81.3 ml/min; Magnesium 1.8 mg/dl (1.7-2.4); Phosphorus 3.1 mg/dl (2.5-4.9); Potassium 3.3 mmol/L (3.5-5.1)
[2024-09-25] MEDS: ADVANCED PROBIOTIC 625 MG CAPSULE PO SCH (09:15)
[2024-09-25] MEDS: MAGNESIUM OXIDE 400 MG TAB PO SCH (09:15)
--- NOTE | 2024-09-25 10:05 | Anesthesiology Consultation ---
Date of Service September 25, 2024 Assessment & Plan Chart Review Chart Review: Acceptable Risk for Surgery and Patient NOT seen in Pre Admission Testing History Surgery Operation Date: 09/24/24 12:00 Proposed Procedures p Angiogram Extremity Bilateral - Raj Tripp MD Operation Date: 09/25/24 13:55 Proposed Procedures p Right First Ray Resection - Vaughn Trimble DPM Height/Weight Height: 5 ft 10 in Weight: 100.7 kg Allergies Allergy/AdvReac Type Severity Reaction Status Date / Time No Known Allergies Allergy Verified 09/24/24 11:19 Medications Home Medications Medication Instructions Recorded Confirmed Last Taken vit A 300 mcg-C 200 mg-E 27 1 tab PO QAM 10/08/18 09/21/24 08/29/23 mg-lutein 2 mg and minerals tablet (Ocuvite with Lutein) cholecalciferol (vitamin D3) 25 25 mcg PO DAILY 03/02/23 09/21/24 11/23/23 mcg (1,000 unit) capsule (Vitamin D3) gabapentin 100 mg capsule 100 mg PO DAILY 03/02/23 09/21/24 11/23/23 gabapentin 100 mg capsule 200 mg PO HS 11/23/23 09/21/24 Unknown B-complex with vitamin C 1 tab PO DAILY 07/24/24 09/21/24 Unknown acetaminophen 650 mg 650 mg PO BID 07/24/24 09/21/24 Unknown tablet,extended release atorvastatin 40 mg tablet 40 mg PO DAILY 07/24/24 09/21/24 Unknown docusate sodium 50 mg capsule 100 mg PO DAILY PRN Constipation 07/24/24 09/21/24 Unknown furosemide 40 mg tablet 40 mg PO AMHS 07/24/24 09/21/24 Unknown metoprolol succinate 50 mg 50 mg PO AMHS 07/24/24 09/21/24 Unknown tablet,extended release 24 hr polyethylene glycol 3350 17 gram 17 g PO DAILY PRN Constipation 07/24/24 09/21/24 Unknown oral powder packet (Miralax) propylene glycol 0.6 % eye drops 1 drp OPB BID 07/24/24 09/21/24 Unknown (Systane Balance) magnesium oxide 400 mg (241.3 mg 400 mg PO DAILY 08/13/24 09/21/24 Unknown magnesium) tablet Blue Emu Arthritic Joint Ointment 1 applic topical UD 09/21/24 09/21/24 Unknown acetaminophen 650 mg tablet 650 mg PO DAILY PRN Pain 09/21/24 09/21/24 Unknown potassium chloride 10 mEq 10 meq PO BID 09/21/24 09/21/24 Unknown tablet,extended release (Klor-Con) Active Medications Generic Name Dose Route Start Last Admin Trade Name Freq PRN Reason Stop Dose Admin Acetaminophen 650 mg 09/21/24 14:16 09/24/24 06:18 Acetaminophen 325 Mg Tab PO 10/21/24 14:15 650 mg Q4H PRN Administration Pain or Fever Collagenase 1 appln 09/23/24 12:15 09/25/24 09:16 Collagenase Oint 30 Gm Tube EXT 10/23/24 12:14 1 appln DAILY HUMBLE Administration Enoxaparin Sodium 40 mg 09/23/24 09:00 09/25/24 10:02 Enoxaparin Inj 40 Mg/0.4 Ml Syr SQ 10/23/24 08:59 Not Given QAM HUMBLE Furosemide 40 mg 09/24/24 21:00 09/25/24 09:15 Furosemide 40 Mg Tab PO 10/24/24 20:59 40 mg AMHS HUMBLE Administration Gabapentin 100 mg 09/22/24 09:00 09/25/24 09:51 Gabapentin 100 Mg Cap PO 10/22/24 08:59 100 mg DAILY HUMBLE Administration Gabapentin 200 mg 09/21/24 21:00 09/24/24 21:33 Gabapentin 100 Mg Cap PO 10/21/24 20:59 200 mg HS HUMBLE Administration Piperacillin Sod/Tazobactam Sod 4.5 gm in 100 mls @ 25 mls/hr 09/21/24 20:00 09/25/24 09:52 Zosyn IV 11/02/24 14:29 25 mls/hr Q8H HUMBLE Administration Protocol Daptomycin 500 mg/ Syringe 10 mls @ 5 mls/min 09/22/24 14:00 09/24/24 17:19 IV 11/03/24 13:59 5 mls/min Q24H HUMBLE Administration Protocol Lactobacillus Acidophilus 1,250 mg 09/25/24 09:00 09/25/24 09:15 Advanced Probiotic 625 Mg Capsule PO 10/25/24 08:59 1,250 mg DAILY HUMBLE Administration Magnesium Oxide 400 mg 09/25/24 09:00 09/25/24 09:15 Magnesium Oxide 400 Mg Tab PO 10/25/24 08:59 400 mg DAILY HUMBLE Administration Metoprolol Succinate 50 mg 09/21/24 21:00 09/24/24 21:33 Metoprolol Succ 50mg Ext Rel Tab PO 10/21/24 20:59 50 mg AMHS HUMBLE Administration Polyethylene Glycol 17 gm 09/22/24 11:31 09/23/24 16:58 Polyethylene (Miralax) 17 Gm Pack PO 10/22/24 11:30 17 gm DAILY PRN Administration Constipation Vitamin B Complex 1 tab 09/22/24 09:00 09/24/24 08:12 Vitamin B Complex Tab PO 10/22/24 08:59 1 tab DAILY HUMBLE Administration Vitamin D 25 mcg 09/22/24 09:00 09/24/24 08:12 Cholecalciferol 25 Mcg (1000 Units) Tab PO 10/22/24 08:59 25 mcg DAILY HUMBLE Administration Past Medical History Medical History Abnormal ankle brachial index (MONA) Abnormal computed tomography of abdomen and pelvis Acute hypokalemia Vomiting Leukocytosis SBO (small bowel obstruction) Incarcerated hernia Incarcerated ventral hernia Leg edema Symptomatic anemia Acute GI bleeding Umbilical hernia Hx of spinal stenosis Past Family History Family History Mother CHF (congestive heart failure) Social History Smoking Status: Former smoker Do You Dip or Chew Tobacco: No Hx Alcohol Use: Yes Alcohol type: beer alcohol intake frequency: a few times a week Hx Substance Use: No substance use type: does not use Physical Exam Vital Signs Last Vital Signs Temp 36.7 C 09/25/24 07:33 Pulse 55 L 09/25/24 07:33 Resp 18 09/25/24 07:33 BP 125/68 09/25/24 07:33 Pulse Ox 95 09/25/24 07:33 O2 Del Method Room Air 09/25/24 07:33 Testing Laboratory Results 09/25/24 07:55 09/25/24 07:55 PT 11.9 Seconds (9.0-12.0) 09/24/24 08:57 INR 1.1 (0.9-1.1) 09/24/24 08:57 APTT 30 Seconds (21-31) 09/24/24 08:57 Blood Type O Positive 09/23/24 20:37 09/21/24 10:40 Gram Stain - Final Foot Aerobic and Anaerobic Culture - Preliminary Staph aureus MRSA Coryne striatum/simulans grp 09/21/24 14:16 Aerobic Blood Culture - Preliminary Blood No growth in Aerobic bottle after 48 hours. Anaerobic Blood Culture - Preliminary No growth in Anaerobic bottle after 48 hours. 09/21/24 14:16 Aerobic Blood Culture - Preliminary Blood No growth in Aerobic bottle after 48 hours. Anaerobic Blood Culture - Final
--- NOTE | 2024-09-25 11:00 | Infectious Disease Consult ---
Date of Service September 25, 2024 Telehealth Information I performed this visit using a real-time telehealth connection between my location and the patients location ([facility]). After connecting through interactive tele-video, patient was identified by name and date of and/or wristband check.Patient (or authorized healthcare call center representative) was informed that this was a telemedicine visit and it was being conducted confidentially over secure lines. My office door was closed and no one else was present in the room with me.Patient (or authorized healthcare call center representative) provided consent to proceed with the visit, expressed an understanding of privacy and security of the telemedicine visit, and gave permission to have a hospital call center representative in the room in order to assist with the visit and to conduct portions of the visit, as needed. I informed the patient (or authorized healthcare call center representative) that I reviewed their record and presented the opportunity for them to ask any questions regarding the visit today. The patient agreed to participate. Assessment & Plan (1) Osteomyelitis: Plan: Cellulitis may be improving on current regimen. History and MR exam shows osteo myelitis of the MT head. This will likely need amputation and debridement to resolve. Superficial cultures show involvement by MRSA and this tends to correlate well with infection of the underlying bone. Plan OK to continue empiric pip-tazo and daptomycin for now (though this can be switched to vancomycin). I assume the underlying osteomyelitis is due to MRSA and given involvement of the MT bone, he will certainly need 6 weeks of IV abx therapy post-debridement. Await cultures from OR to help finalize abx plans. History of Present Illness History of Present Illness Mr. Green is an 83yo male who was admitted to [facility] on 09/21/24 with a foot wound and presumed underlying osteomyelitis. He believes the wound started in June of 2024. He was unaware of any trauma. He was seen in wound care clinic, but the wound recently worsened with swelling, erythema and ulceration. No fevers or pain despite this. He was admitted to [facility] and started on empiric pip-tazo and daptomycin. A superficial culture showed MRSA and he underwent an angiogram. Plans for surgical resection/debridement are noted for tomorrow morning. Allergies Allergy/AdvReac Type Severity Reaction Status Date / Time No Known Allergies Allergy Verified 09/24/24 11:19 Home Medications Medication Instructions Recorded Confirmed Type vit A 300 mcg-C 200 mg-E 27 1 tab PO QAM 10/08/18 09/21/24 History mg-lutein 2 mg and minerals tablet (Ocuvite with Lutein) cholecalciferol (vitamin D3) 25 25 mcg PO DAILY 03/02/23 09/21/24 History mcg (1,000 unit) capsule (Vitamin D3) gabapentin 100 mg capsule 100 mg PO DAILY 03/02/23 09/21/24 History gabapentin 100 mg capsule 200 mg PO HS 11/23/23 09/21/24 History B-complex with vitamin C 1 tab PO DAILY 07/24/24 09/21/24 History acetaminophen 650 mg 650 mg PO BID 07/24/24 09/21/24 History tablet,extended release atorvastatin 40 mg tablet 40 mg PO DAILY 07/24/24 09/21/24 History docusate sodium 50 mg capsule 100 mg PO DAILY PRN Constipation 07/24/24 09/21/24 History furosemide 40 mg tablet 40 mg PO AMHS 07/24/24 09/21/24 History metoprolol succinate 50 mg 50 mg PO AMHS 07/24/24 09/21/24 History tablet,extended release 24 hr polyethylene glycol 3350 17 gram 17 g PO DAILY PRN Constipation 07/24/24 09/21/24 History oral powder packet (Miralax) propylene glycol 0.6 % eye drops 1 drp OPB BID 07/24/24 09/21/24 History (Systane Balance) magnesium oxide 400 mg (241.3 mg 400 mg PO DAILY 08/13/24 09/21/24 History magnesium) tablet Blue Emu Arthritic Joint Ointment 1 applic topical UD 09/21/24 09/21/24 History acetaminophen 650 mg tablet 650 mg PO DAILY PRN Pain 09/21/24 09/21/24 History potassium chloride 10 mEq 10 meq PO BID 09/21/24 09/21/24 History tablet,extended release (Klor-Con) Patient History Medical History Abnormal ankle brachial index (MONA) Abnormal computed tomography of abdomen and pelvis Acute hypokalemia Vomiting Leukocytosis SBO (small bowel obstruction) Incarcerated hernia Incarcerated ventral hernia Leg edema Symptomatic anemia Acute GI bleeding Umbilical hernia Hx of spinal stenosis Family History Mother CHF (congestive heart failure) Social History Smoking Status: Former smoker Tobacco Type: Cigarettes Second Hand Exposure: No; Do You Dip or Chew Tobacco: No; Hx Alcohol Use: Yes Alcohol type: beer Alcohol Intake Frequency Comment: 6-7 beers/day Hx Substance Use: No Preferred Language: Macedonian Communication Ability: Effective Tooling Mechanic Required: No Beliefs That Will Affect Care: Anabaptist marital status: Current Living Situation: Personal Care Facility Current Living Situation Comment: [employer] current occupational status: retired Other Information That Helps Us Care for You: No Feels Safe at Home: Yes Safety Concerns: Feels Safe At This Time Physical Activity Frequency: Does not Exercise Assistive Devices: Walker Review of Systems Gen - No complaints of weakness, fatigue, fevers, or other constitutional complaints HEENT- No SLADE or sore throat Resp- No SOB or cough CV- No chest pain GI- no N/V or diarrhea - No dysuria MSK- Foot swelling and wound as per HPI Skin- No rash Neuro- No focal deficits Physical Exam Gen- NAD, cooperative with exam HEENT- NC AT Resp- Normal respiratory rate on room air MSK- foot wound, cellulitis Skin- No rash Neuro- Alert and oriented x 3 Results & Data Vital Signs (Past 12 Hours) Vital Signs Temp Pulse Pulse Resp BP Pulse Ox O2 Del Method 09/25/24 07:33 36.7 C 55 L 18 125/68 95 Room Air 09/25/24 07:33 52 L 09/25/24 02:36 36.6 C 93 H 21 114/59 L 96 Room Air 09/25/24 00:00 73 Laboratory Results WBC 10.87 -> 9.15 Hgb 12.1 Platelets 201 Na 137 Creatinine 0.7 BUN 12 CK 192 Diagnostic Findings Microbiology: Culture from 09/21/24 showed MRSA Blood cultures 09/21/24 negative to date IMaging: MRI of foot reviewed: 1st MT head osteomyelitis. No abscess. (1) Osteomyelitis Laterality: right Osteomyelitis location: foot Osteomyelitis type: acute hematogenous Qualified Code(s): M86.071 - Acute hematogenous osteomyelitis, right ankle and foot
[2024-09-25] MEDS ORDERED: Nursing to Pharmacy Communication SCH (13:00)
[2024-09-25] MEDS: LACTATED RINGER'S 1,000 ML IV SCH (13:17)
[2024-09-25] MEDS ORDERED: ePHEDrine sulfate 50 MG/ML AMP IV PRN (13:40)
[2024-09-25] MEDS ORDERED: fentaNYL citrate PF 100 MCG/2 ML VIAL IV PRN (13:40)
[2024-09-25] MEDS ORDERED: ONDANSETRON INJ 2 MG/ML 2 ML VIAL IV PRN (13:40)
[2024-09-25] MEDS ORDERED: ATROPINE SULFATE 0.1 MG/ML 10ML SYR IV PRN (13:40)
--- NOTE | 2024-09-25 13:43 | History & Physical Bridge Note ---
Date of Service September 25, 2024 History & Physical Bridge Note I have examined the patient, reviewed the History & Physical and in the interval since the performance of the History & Physical I have noted the following changes of clinical significance: no changes noted. Plan for right first ray resection and heel ulcer debridement. All questions obtained. Discussed with patient and . Consent obtained.
[2024-09-25] MEDS ORDERED: PROPOFOL IV EMULSION 10 MG/ML 20 ML VIAL IV ONE ×3 (13:58→14:41)
[2024-09-25] MEDS ORDERED: LIDOCAINE 2% 2 ML VIAL/AMP(20MG/ML) INFIL ONE (13:58)
[2024-09-25] MEDS ORDERED: KETAMINE HCL 10MG/ML SYR ONE (14:22)
[2024-09-25] MEDS ORDERED: ONDANSETRON INJ 2 MG/ML 2 ML VIAL ONE (14:23)
[2024-09-25] MEDS: BUPIVACAINE 0.5 % 5 MG/1 ML MPF 30ML VIAL ONE (14:50)
--- NOTE | 2024-09-25 14:54 | Post Operative Brief Note ---
Immediate Post Op Note Date of Surgery September 25, 2024 Pre & Post Diagnosis Operation Date: 09/25/24 13:55 Pre-Op Diagnosis: Osteomyelitis Cellulitis of right foot Open wound of right foot Other specified peripheral vascular diseases Post-Op Diagnosis: Osteomyelitis Cellulitis of right foot Open wound of right foot Other specified peripheral vascular diseases I identified the patient and participated in the time-out.: Yes Procedure Operation Date: 09/25/24 13:55 Actual Procedures p Right First Ray Resection, right heel excisional wound debridement(Right) - Vaughn Trimble DPM Surgeon Vaughn Trimble DPM Ux Developer Designer Coleen Galvez Estimated Blood Loss 10 Findings Consistent with Post-Op Diagnosis Specimens Right first ray Right first metatarsal proximal margin Right first metatarsal bone culture Anesthesia Type RN Sedation Complications none Disposition Accompanied Patient To Recovery: Yes Disposition: Recovery Room
--- NOTE | 2024-09-25 16:45 | Hospitalist Progress Note ---
Date of Service September 25, 2024 Assessment & Plan (1) Cellulitis of right foot: Plan 83-year-old male with PMH of paroxysmal A-fib, HTN, HLD, alcohol use, hyponatremia, SIADH, prostatitis, B12 deficiency and lumbar spinal stenosis presented from [facility] with a foot wound that is worsening. He is being managed for the following: Right foot osteomyelitis MRI right foot with acute osteomyelitis of the right first metatarsal head, overlying wound with associated cellulitis. No abscess. Status post RLE angiogram 09/24, okay to move forward with surgical resection of osteomyelitis from vascular standpoint. Podiatry on board, Right First Ray Resection, right heel excisional wound debridement(Right) on 09/25. Continue with daptomycin 09/22 and Zosyn 09/21. ID evaled 09/25, await operative cultures. 09/24 CPK 192. Hold home statin while on dapto. 09/21 foot culture reviewed, follow-up admitting blood culture. Wound care. Elevate legs. Other chronic medical conditions: Continue with/resume home meds as and when able. PAF: Continue metoprolol, not on AC. Discuss anticoagulation outpatient with PCP. Hypertension: Continue with home medications. Hyponatremia, SIADH: Monitor sodium level as needed. Lumbar spinal stenosis: Pain control, continue gabapentin. DVT prophylaxis: Enoxaparin Full code pt/ot , likely will need rehab. Admission and Anticipated Discharge Date Admission Date: September 21, 2024 Subjective Patient was seen and examined at bedside. Patient was lying in bed, on room air, NAD, resting comfortably. Patient reports some RLE pain, reports feeling better. Patient denies fever/sore throat/cough/chest pain. Pt npo for procedure, resume diet once done. Physical Exam Physical Exam: Gen: A&O 3 NAD HEENT: NCAT, EOMI, not icteric. External ears normal. No rhinorrhea. Moist mucous membranes. Neck: Supple, full range of motion, no observable masses, No meningeal sign. Lungs: No Respiratory distress. CV: RRR, no edema. Abdomen: Soft, nondistended, No rebound tenderness. MSK: right foot with heel and 1st digit purulence and smell Skin: No rashes, petechiae, lesions. Normal color per patient. Neuro: Normal Gait, Grossly intact. Psych: Appropriate for situation. Results & Data Results & Data Vital Signs (Past 12 Hours) Vital Signs Temp Pulse Pulse Pulse Resp BP Pulse Ox 09/25/24 15:53 36.4 C L 87 18 106/70 96 09/25/24 15:40 89 20 121/70 96 09/25/24 15:30 36.4 C L 90 24 117/73 96 09/25/24 15:20 81 21 115/79 93 09/25/24 15:10 73 23 103/62 100 09/25/24 15:02 36.4 C L 58 L 24 139/60 98 09/25/24 14:58 58 L 09/25/24 13:09 36.5 C 58 L 20 135/87 98 09/25/24 11:00 36.9 C 64 16 115/67 98 09/25/24 07:33 36.7 C 55 L 18 125/68 95 09/25/24 07:33 52 L O2 Del Method O2 Flow Rate 09/25/24 15:53 Room Air 09/25/24 15:40 Room Air 0 09/25/24 15:30 Room Air 0 09/25/24 15:20 Room Air 0 09/25/24 15:10 Oxymask 8 09/25/24 15:02 Oxymask 8 09/25/24 14:58 09/25/24 13:09 Room Air 09/25/24 11:00 Room Air 09/25/24 07:33 Room Air 09/25/24 07:33
--- NOTE | 2024-09-25 16:53 | Anesthesiology Progress Note ---
Date of Service September 25, 2024 Anesthesia Post Procedure Vital Signs Vital Signs: Temp Pulse Pulse Pulse Resp BP Pulse Ox 09/25/24 15:53 36.4 C L 87 18 106/70 96 09/25/24 15:40 89 20 121/70 96 09/25/24 15:30 36.4 C L 90 24 117/73 96 09/25/24 15:20 81 21 115/79 93 09/25/24 15:10 73 23 103/62 100 09/25/24 15:02 36.4 C L 58 L 24 139/60 98 09/25/24 14:58 58 L 09/25/24 13:09 36.5 C 58 L 20 135/87 98 09/25/24 11:00 36.9 C 64 16 115/67 98 09/25/24 07:33 36.7 C 55 L 18 125/68 95 09/25/24 07:33 52 L 09/25/24 02:36 36.6 C 93 H 21 114/59 L 96 09/25/24 00:00 73 09/24/24 22:27 36.6 C 70 21 123/90 97 09/24/24 19:35 36.7 C 79 22 129/76 96 09/24/24 19:12 O2 Del Method O2 Flow Rate 09/25/24 15:53 Room Air 09/25/24 15:40 Room Air 0 09/25/24 15:30 Room Air 0 09/25/24 15:20 Room Air 0 09/25/24 15:10 Oxymask 8 09/25/24 15:02 Oxymask 8 09/25/24 14:58 09/25/24 13:09 Room Air 09/25/24 11:00 Room Air 09/25/24 07:33 Room Air 09/25/24 07:33 09/25/24 02:36 Room Air 09/25/24 00:00 09/24/24 22:27 Room Air 09/24/24 19:35 Room Air 09/24/24 19:12 Room Air Pain Intensity Right Foot: Pain Intensity: 3 Transfer of Care Handoff Completed per policy Notes Mental Status: alert / awake / arousable Patient Amnestic to Procedure: Yes Nausea / Vomiting: adequately controlled Pain: adequately controlled Airway Patency, RR, SpO2: stable & adequate BP & HR: stable & adequate Hydration State: stable & adequate Anesthetic Complications: no major complications apparent
[2024-09-25] MEDS: POTASSIUM CHLORIDE CRTAB 20 MEQ TABCR PO STA (17:42)
[2024-09-25] MEDS: DOCUSATE SODIUM/SENNA 50/8.6MG TAB PO SCH (20:36)
[2024-09-25] MEDS: LACTULOSE SYRUP 30 GM/45 ML UDP PO STA (21:04)
[2024-09-26] MEDS ORDERED: VANCOMYCIN CONSULT ACTIVE PRN (08:25)
[2024-09-26 08:30] LABS: Hematocrit (blood only) 37.5 % (42.0-52.0); Hemoglobin 12.7 g/dl (14.0-18.0); Mean Corpuscular Hemoglobin 30.7 pg (25.0-34.0); Mean Corpuscular Hgb Conc 33.9 g/dL (32.0-36.0); Mean Corpuscular Volume 90.6 fL (80.0-100.0); Mean Platelet Volume 10.8 fL (9.4-12.4); Platelet Count 223 K/uL (130-400); RDW Coefficient of Variation 14.6 % (11.5-14.5); RDW Standard Deviation 48.2 fL (36.4-46.3); Red Blood Count 4.14 M/uL (4.70-6.10); White Blood Count 11.19 K/ul (4.8-10.8)
[2024-09-26 08:47] LABS: BUN Creatinine Ratio 12.6 (10-20); Calcium 9.5 mg/dl (8.6-10.3); Creatinine Clr Calc Pharmacy 71.8 ml/min; Magnesium 1.8 mg/dl (1.7-2.4); Potassium 3.4 mmol/L (3.5-5.1)
[2024-09-26] MEDS: VANCOMYCIN HCL 1,000 MG/270 ML BAG IV SCH (12:09)
--- NOTE | 2024-09-26 15:02 | Pharmacy Report ---
Pharmacy PK ABX Note - Date of Service September 26, 2024 - Assessment and Plan Assessment 83 year old M admitted on 09/21 with a foot wound discovered to be osteomyelitis. He initially was started on empiric Zosyn and daptomycin. Today, the daptomycin was changed to vancomycin per ID recommendations. Right first ray resection and right heel wound debridement were done and sample for culture on 09/25 (will need 6 weeks iv antibiotics post-debridement per ID). * Pertinent microbiologic data includes: * Foot culture from 09/21 grew MRSA (vanco KYLE=1) and Coryne striatum/simulans group. * Blood culture from 09/21 negative to date x 2 * Right great mccollum culture from 09/25 is growing S. aureus on the preliminary report. Day # 1 of vancomycin therapy. Plan Vancomycin * Maintenance dose: 1000 mg IV every 12 hours * Regimen is predicted to achieve target AUC/KYLE of 400-600 mg/L.hr * Random level ordered for: 09/28/24 with morning labs Pharmacy will continue to follow and will adjust dose/frequency as necessary. Thank you. Pharmacy has transitioned to AUC monitoring for vancomycin. AUC/KYLE is the preferred PK/PD target and is associated with decreased risk of nephrotoxicity compared to traditional trough targets.
--- NOTE | 2024-09-26 15:54 | Hospitalist Progress Note ---
Date of Service September 26, 2024 Assessment & Plan (1) Cellulitis of right foot: Plan 83-year-old male with PMH of paroxysmal A-fib, HTN, HLD, alcohol use, hyponatremia, SIADH, prostatitis, B12 deficiency and lumbar spinal stenosis presented from [facility] with a foot wound that is worsening. He is being managed for the following: Right foot osteomyelitis MRI right foot with acute osteomyelitis of the right first metatarsal head, overlying wound with associated cellulitis. No abscess. Status post RLE angiogram 09/24, okay to move forward with surgical resection of osteomyelitis from vascular standpoint. Podiatry on board, Right First Ray Resection, right heel excisional wound debridement(Right) on 09/25. Continue with daptomycin 09/22 and Zosyn 09/21. ID evaled 09/25, dapto changed to vanco, await operative cultures. 09/24 CPK 192. since dapto stopped 09/25, repeat cpk and likely and can resume statin in next few days. 09/21 foot culture reviewed, follow-up admitting blood culture. follow up 09/25 operative culture and path results. d/w podiatry, operative margin should be well clear of OM, will await path results. f/u w/ OP wound care and podiatry on dc. Wound care. Elevate legs. Other chronic medical conditions: Continue with/resume home meds as and when able. PAF: Continue metoprolol, not on AC. Discuss anticoagulation outpatient with PCP. Hypertension: Continue with home medications. Hyponatremia, SIADH: Monitor sodium level as needed. Lumbar spinal stenosis: Pain control, continue gabapentin. DVT prophylaxis: Enoxaparin Full code pt/ot , likely will need rehab. Admission and Anticipated Discharge Date Admission Date: September 21, 2024 Subjective Patient was seen and examined at bedside. Patient was lying in bed, on room air, NAD, resting comfortably. Patient reports no RLE pain, reports feeling better. Patient denies fever/sore throat/cough/chest pain. Pt doesn't want dietary restriction and wants regular diet, hence diet liberalized. Physical Exam Physical Exam: Gen: A&O 3 NAD HEENT: NCAT, EOMI, not icteric. External ears normal. No rhinorrhea. Moist mucous membranes. Neck: Supple, full range of motion, no observable masses, No meningeal sign. Lungs: No Respiratory distress. CV: RRR, no edema. Abdomen: Soft, nondistended, No rebound tenderness. MSK: right foot with heel and 1st digit purulence and smell Skin: No rashes, petechiae, lesions. Normal color per patient. Neuro: Normal Gait, Grossly intact. Psych: Appropriate for situation. Results & Data Results & Data Vital Signs (Past 12 Hours) Vital Signs Temp Pulse Pulse Resp BP Pulse Ox O2 Del Method 09/26/24 15:47 36.7 C 83 19 123/76 97 Room Air 09/26/24 12:00 37.1 C 74 16 143/88 H 93 Room Air 09/26/24 08:14 36.7 C 92 H 19 117/74 92 Room Air 09/26/24 07:24 58 L
--- NOTE | 2024-09-26 23:27 | Podiatry Progress Note ---
Date of Service September 26, 2024 Assessment & Plan (1) Osteomyelitis: (2) Cellulitis of right foot: (3) Open wound of right foot: (4) Other specified peripheral vascular diseases: Plan patient was examined and evaluated. - Dressing left intact POD #1. - Can begin daily dressing changes on Sunday with xeroform to forefoot incision/sutures and Santyl to heel. - Can likely be discharged home on empiric oral antibiotics; clinically clear amputation site with source control expected. - Bone culture taken from most obvious infection site, will likely grow out bacteria, but proximal margin should be clear. -Will follow. Admission and Anticipated Discharge Date Admission Date: September 21, 2024 Subjective Pt seen at bedside POD #1. Denies any pain or concerns. Is feeling better. Does not want to see his foot in its current state yet. Denies new signs or symptoms of infection. Review of Systems Constitutional: + malaise and + weakness; no fever, no c hills and no fatigue Eyes: no problem reported Ear, Nose, Mouth, Throat: no problem reported Respiratory: no problem reported Cardiovascular: + edema; no problem reported Gastrointestinal: no nausea, no vomiting and no problem reported Musculoskeletal: + radicular pain and + loss of height; n o problem reported Integumentary: + non-healing lesions, + skin ulcer, + w ounds and + erythema Neurologic: + loss of sensation, + numbness and + pa resthesia; no generalized weakness Psychiatric: no problem reported Physical Exam Physical Exam: Lower extremity focused exam: DP/PT pulses nonpalpable. CFT brisk to the digits. ulceration is maintained to the medial first metatarsal phalangeal joint, consistent with prior examination in July. Now, this wound measures 4 x 4 cm with a large central black eschar. The nature of this eschar is uncertain on clinical exam, with potential for necrotic tissue, including necrotic bone or muscle, or overlying scab and eschar formation. Eschar is softened compared to yesterday, consistent with local wound care since that time. Upon review of the MRI, this does appear to be consistent with extensive necrosis of the metatarsal head itself which is directly visualized on MR imaging. This is further confirmed on CT imaging performed at this hospitalization. The dressing did have significant serous drainage noted as well. The medial heel ulceration is now open as well, measuring 3 x 4 cm with a necrotic central aspect noted as well. This does not probe to bone and imaging does not suggest underlying osteomyelitis as well. Still, this is dry with only scant serous drainage and no bleeding on palpation or clinical exam. His remained nonpalpable. Advanced trophic changes are noted to the lower extremity. CFT is brisk to the digits overall. Constitutional: WD/WN, vitals as above + ill appearing and + obese Eyes: PERRL, conjunctivae normal, anicteric sclerae ENMT: external ear and nose normal, oropharynx normal Neck: trachea midline, no thyromegaly normal visual inspection Respiratory: normal respiratory effort; no respiratory distress Cardiovascular: Rate/Rhythm: regular rate and regular rhythm Chest (Breasts): Chest: normal inspection of chest Gastrointestinal (Abdomen): Inspection/Auscultation: abdomen normal to inspection Percussion/Palpation: + abdomen tender and abdomen soft Musculoskeletal: no cyanosis or clubbing, extremities motor strength 5/5 Head/Neck/Chest: normocephalic and head atraumatic Extremities: extremities normal to inspection Neurologic: awake; no focal motor deficits Psychiatric: A+Ox3, euthymic affect Results & Data Results & Data Vital Signs (Past 12 Hours) Vital Signs Temp Pulse Pulse Resp BP BP Pulse Ox 09/26/24 22:30 36.7 C 78 18 100/61 95 09/26/24 19:22 37.2 C 72 18 126/68 94 09/26/24 16:08 75 09/26/24 15:47 36.7 C 83 19 123/76 97 09/26/24 12:00 37.1 C 74 16 143/88 H 93 O2 Del Method 09/26/24 22:30 Room Air 09/26/24 19:22 Room Air 09/26/24 16:08 09/26/24 15:47 Room Air 09/26/24 12:00 Room Air (1) Osteomyelitis Laterality: right Osteomyelitis location: foot Osteomyelitis type: acute hematogenous Qualified Code(s): M86.071 - Acute hematogenous osteomyelitis, right ankle and foot (3) Open wound of right foot Encounter type: initial encounter Qualified Code(s): S91.301A - Unspecified open wound, right foot, initial encounter
[2024-09-27 07:41] LABS: Hematocrit (blood only) 35.5 % (42.0-52.0); Hemoglobin 12.3 g/dl (14.0-18.0); Mean Corpuscular Hemoglobin 31.5 pg (25.0-34.0); Mean Corpuscular Hgb Conc 34.6 g/dL (32.0-36.0); Mean Corpuscular Volume 90.8 fL (80.0-100.0); Platelet Count 210 K/uL (130-400); RDW Coefficient of Variation 14.4 % (11.5-14.5); RDW Standard Deviation 48.1 fL (36.4-46.3); Red Blood Count 3.91 M/uL (4.70-6.10); White Blood Count 9.73 K/ul (4.8-10.8)
[2024-09-27 07:57] LABS: BUN Creatinine Ratio 11.8 (10-20); Calcium 9.2 mg/dl (8.6-10.3); Creatinine Clr Calc Pharmacy 82.9 ml/min; Magnesium 1.7 mg/dl (1.7-2.4)
[2024-09-27] MEDS: POTASSIUM CHLORIDE CRTAB 20 MEQ TABCR PO SCH (09:00)
--- NOTE | 2024-09-27 15:46 | Hospitalist Progress Note ---
Date of Service September 27, 2024 Assessment & Plan (1) Cellulitis of right foot: Plan 83-year-old male with PMH of paroxysmal A-fib, HTN, HLD, alcohol use, hyponatremia, SIADH, prostatitis, B12 deficiency and lumbar spinal stenosis presented from [facility] with a foot wound that is worsening. He is being managed for the following: Right foot osteomyelitis MRI right foot with acute osteomyelitis of the right first metatarsal head, overlying wound with associated cellulitis. No abscess. Status post RLE angiogram 09/24, okay to move forward with surgical resection of osteomyelitis from vascular standpoint. Podiatry on board, Right First Ray Resection, right heel excisional wound debridement(Right) on 09/25. Continue with daptomycin 09/22 and Zosyn 09/21. ID evaled 09/25, dapto changed to vanco, await operative cultures. 09/24 CPK 192. since dapto stopped 09/25, repeat cpk on 09/27 is 151, resume statin 09/28. 09/21 foot culture reviewed, follow-up admitting blood culture. follow up 09/25 operative culture and path results. d/w podiatry 09/26, operative margin should be well clear of OM, will await path results. f/u w/ OP wound care and podiatry on dc. Wound care. Elevate legs. Other chronic medical conditions: Continue with/resume home meds as and when able. PAF: Continue metoprolol, not on AC. Discuss anticoagulation outpatient with PCP. Hypertension: Continue with home medications. Hyponatremia, SIADH: Monitor sodium level as needed. Lumbar spinal stenosis: Pain control, continue gabapentin. DVT prophylaxis: Enoxaparin Full code pt/ot , likely will need rehab. Admission and Anticipated Discharge Date Admission Date: September 21, 2024 Subjective Patient was seen and examined at bedside. Patient was lying in bed, on room air, NAD, resting comfortably. Patient reports no RLE pain, reports feeling better. Patient denies fever/sore throat/cough/chest pain. Pt reports eating ok. Physical Exam Physical Exam: Gen: A&O 3 NAD HEENT: NCAT, EOMI, not icteric. External ears normal. No rhinorrhea. Moist mucous membranes. Neck: Supple, full range of motion, no observable masses, No meningeal sign. Lungs: No Respiratory distress. CV: RRR, no edema. Abdomen: Soft, nondistended, No rebound tenderness. MSK: right foot dressing c/d/i. distal NV status wnl. Skin: No rashes, petechiae, lesions. Normal color per patient. Neuro: Normal Gait, Grossly intact. Psych: Appropriate for situation. Results & Data Results & Data Vital Signs (Past 12 Hours) Vital Signs Temp Pulse Pulse Resp BP Pulse Ox O2 Del Method 09/27/24 13:48 62 09/27/24 10:52 36.7 C 76 19 138/73 96 Room Air 09/27/24 07:58 36.7 C 75 16 91/61 L 97 Room Air 09/27/24 07:04 53 L
[2024-09-28 06:24] LABS: Creatinine Clr Calc Pharmacy 73.2 ml/min
[2024-09-28] MEDS: ATORVASTATIN 40 MG TAB PO SCH (08:35)
--- NOTE | 2024-09-28 09:39 | Podiatry Progress Note ---
Date of Service September 27, 2024 Assessment & Plan (1) Osteomyelitis: (2) Cellulitis of right foot: (3) Open wound of right foot: (4) Other specified peripheral vascular diseases: Plan patient was examined and evaluated. - Dressing removed, cleaned, redressed POD#2. Xeroform to forefoot, Santyl to heel ulcer. - Can begin daily dressing changes on Sunday with xeroform to forefoot incision/sutures and Santyl to heel. - Can likely be discharged home on empiric oral antibiotics; clinically clear amputation site with source control expected. - Bone culture taken from most obvious infection site, will likely grow out bacteria, but proximal margin should be clear. -Will follow. Admission and Anticipated Discharge Date Admission Date: September 21, 2024 Subjective Pt seen at bedside POD #2. Denies any pain. States he occasionally feels his amputated toe "wiggles". Has not been out of bed, has kept dressing clean/dry. Review of Systems Constitutional: + malaise and + weakness; no fever, no c hills and no fatigue Eyes: no problem reported Ear, Nose, Mouth, Throat: no problem reported Respiratory: no problem reported Cardiovascular: + edema; no problem reported Gastrointestinal: no nausea, no vomiting and no problem reported Musculoskeletal: + radicular pain and + loss of height; n o problem reported Integumentary: + non-healing lesions, + skin ulcer, + w ounds and + erythema Neurologic: + loss of sensation, + numbness and + pa resthesia; no generalized weakness Psychiatric: no problem reported Physical Exam Physical Exam: Lower extremity focused exam: DP/PT pulses nonpalpable. CFT brisk to the digits. Dressing removed. Surgical site clean, sutures intact. No bleeding/drainage noted. Medial heel ulceration is 30% fibrotic, 70% granular. Improved since prior to sharp debridement, no significant depth/probing. Still concerning given continued pressure from contracture. Constitutional: WD/WN, vitals as above + ill appearing and + obese Eyes: PERRL, conjunctivae normal, anicteric sclerae ENMT: external ear and nose normal, oropharynx normal Neck: trachea midline, no thyromegaly normal visual inspection Respiratory: normal respiratory effort; no respiratory distress Cardiovascular: Rate/Rhythm: regular rate and regular rhythm Chest (Breasts): Chest: normal inspection of chest Gastrointestinal (Abdomen): Inspection/Auscultation: abdomen normal to inspe ction Percussion/Palpation: + abdomen tender and abdomen soft Musculoskeletal: no cyanosis or clubbing, extremities motor strength 5/5 Head/Neck/Chest: normocephalic and head atraumatic Extremities: extremities normal to inspection Neurologic: awake; no focal motor deficits Psychiatric: A+Ox3, euthymic affect Results & Data Results & Data Vital Signs (Past 12 Hours) Vital Signs Temp Pulse Resp BP BP Pulse Ox O2 Del Method 09/28/24 07:37 37.0 C 60 18 135/65 98 Room Air 09/28/24 07:23 36.7 C 72 16 104/58 L 95 Room Air 09/28/24 02:37 36.7 C 62 18 120/66 93 Room Air 09/27/24 22:39 36.5 C 75 18 122/69 94 Room Air (1) Osteomyelitis Laterality: right Osteomyelitis location: foot Osteomyelitis type: acute hematogenous Qualified Code(s): M86.071 - Acute hematogenous osteomyelitis, right ankle and foot (3) Open wound of right foot Encounter type: initial encounter Qualified Code(s): S91.301A - Unspecified open wound, right foot, initial encounter
--- NOTE | 2024-09-28 09:56 | Pharmacy Report ---
Pharmacy PK ABX Note - Date of Service September 28, 2024 - Assessment and Plan Assessment * 83 year old M admitted on 09/21 with a foot wound discovered to be osteomyelitis. He initially was started on empiric Zosyn and daptomycin. On 09/26, the daptomycin was changed to vancomycin per ID recommendations. * Right first ray resection and right heel wound debridement were done and sample for culture on 09/25 (will need 6 weeks iv antibiotics post-debridement per ID). * Pertinent microbiologic data includes: * Foot culture from 09/21 grew MRSA (vanco KYLE=1) and Coryne striatum/simulans group. * Blood culture from 09/21 negative to date x 2 * Right great toe culture from 09/25 is growing MRSA Plan Vancomycin * Target AUC/KYLE of 400-600 mg/L.hr * Random level of 13.3 mcg/mL this AM associated with a therapeutic AUC of 533 mg/L.hr * Continue maintenance dose of 1000 mg IV every 12 hours * Repeat random level in 48-72 hours, or sooner if clinical condition changes Pharmacy will continue to follow and will adjust dose/frequency as necessary. Thank you. Pharmacy has transitioned to AUC monitoring for vancomycin. AUC/KYLE is the preferred PK/PD target and is associated with decreased risk of nephrotoxicity compared to traditional trough targets.
[2024-09-28 11:50] LABS: Calcium 9.4 mg/dl (8.6-10.3); Creatinine Clr Calc Pharmacy 76.8 ml/min
[2024-09-28] MEDS: POTASSIUM CHLORIDE CRTAB 20 MEQ TABCR PO SCH (13:18)
[2024-09-28] MEDS: MAGNESIUM SULFATE / D5W 1 GM/100 ML BAG IV SCH (13:18)
--- NOTE | 2024-09-28 16:07 | Hospitalist Progress Note ---
Date of Service September 28, 2024 Assessment & Plan (1) Cellulitis of right foot: Plan 83-year-old male with PMH of paroxysmal A-fib, HTN, HLD, alcohol use, hyponatremia, SIADH, prostatitis, B12 deficiency and lumbar spinal stenosis presented from [facility] with a foot wound that is worsening. He is being managed for the following: Right foot osteomyelitis MRI right foot with acute osteomyelitis of the right first metatarsal head, overlying wound with associated cellulitis. No abscess. Status post RLE angiogram 09/24, okay to move forward with surgical resection of osteomyelitis from vascular standpoint. Podiatry on board, Right First Ray Resection, right heel excisional wound debridement(Right) on 09/25. Continue with daptomycin 09/22 and Zosyn 09/21. ID evaled 09/25, dapto changed to vanco, await operative cultures. 09/24 CPK 192. since dapto stopped 09/25, repeat cpk on 09/27 is 151, resume statin 09/28. 09/21 foot culture reviewed, follow-up admitting blood culture. follow up 09/25 operative culture and path results. d/w podiatry 09/26, operative margin should be well clear of OM, will await path results. f/u w/ OP wound care and podiatry on dc. Wound care. Elevate legs. Once path report is out, will reach out to ID for final recs. Other chronic medical conditions: Continue with/resume home meds as and when able. PAF: Continue metoprolol, not on AC. Discuss anticoagulation outpatient with PCP. Hypertension: Continue with home medications. Hyponatremia, SIADH: Monitor sodium level as needed. Lumbar spinal stenosis: Pain control, continue gabapentin. DVT prophylaxis: Enoxaparin Full code pt/ot , likely will need rehab. Admission and Anticipated Discharge Date Admission Date: September 21, 2024 Subjective Patient was seen and examined at bedside. Patient was lying in bed, on room air, NAD, resting comfortably. Patient reports no RLE pain, reports feeling better. Patient denies fever/sore throat/cough/chest pain. Pt reports eating ok. Physical Exam Physical Exam: Gen: A&O 3 NAD HEENT: NCAT, EOMI, not icteric. External ears normal. No rhinorrhea. Moist mucous membranes. Neck: Supple, full range of motion, no observable masses, No meningeal sign. Lungs: No Respiratory distress. CV: RRR, no edema. Abdomen: Soft, nondistended, No rebound tenderness. MSK: right foot dressing c/d/i. distal NV status wnl. Skin: No rashes, petechiae, lesions. Normal color per patient. Neuro: Normal Gait, Grossly intact. Psych: Appropriate for situation. Results & Data Results & Data Vital Signs (Past 12 Hours) Vital Signs Temp Pulse Resp BP BP Pulse Ox O2 Del Method 09/28/24 15:48 36.6 C 66 20 128/68 96 Room Air 09/28/24 11:43 36.9 C 75 18 125/61 98 Room Air 09/28/24 07:37 37.0 C 60 18 135/65 98 Room Air 09/28/24 07:23 36.7 C 72 16 104/58 L 95 Room Air
[2024-09-29 08:19] LABS: BUN Creatinine Ratio 10.2 (10-20); Calcium 9.4 mg/dl (8.6-10.3); Potassium 3.4 mmol/L (3.5-5.1)
[2024-09-29] MEDS: FUROSEMIDE 40 MG TAB PO SCH (08:20)
[2024-09-29] MEDS: POTASSIUM CHLORIDE CRTAB 20 MEQ TABCR PO STA ×2 (09:56→15:59)
--- NOTE | 2024-09-29 15:51 | Hospitalist Progress Note ---
Date of Service September 29, 2024 Assessment & Plan (1) Cellulitis of right foot: Plan 83-year-old male with PMH of paroxysmal A-fib, HTN, HLD, alcohol use, hyponatremia, SIADH, prostatitis, B12 deficiency and lumbar spinal stenosis presented from [facility] with a foot wound that is worsening. He is being managed for the following: Right foot osteomyelitis MRI right foot with acute osteomyelitis of the right first metatarsal head, overlying wound with associated cellulitis. No abscess. Status post RLE angiogram 09/24, okay to move forward with surgical resection of osteomyelitis from vascular standpoint. Podiatry on board, Right First Ray Resection, right heel excisional wound debridement(Right) on 09/25. Continue with daptomycin 09/22 and Zosyn 09/21. ID evaled 09/25, dapto changed to vanco, await operative cultures. 09/24 CPK 192. since dapto stopped 09/25, repeat cpk on 09/27 is 151, resumed statin 09/28. 09/21 foot culture reviewed, follow-up admitting blood culture. follow up 09/25 operative culture and path results. d/w podiatry 09/26, operative margin should be well clear of OM. 09/25 operative path results reviewed (neg for OM on proximal margin), reached out to ID for further recs, await. Wound care. Elevate legs. Likely dc jd w/ ID recs. Await ID re-eval. Other chronic medical conditions: Continue with/resume home meds as and when able. PAF: Continue metoprolol, not on AC. Discuss anticoagulation outpatient with PCP. Hypertension: Continue with home medications. Hyponatremia, SIADH: Monitor sodium level as needed. Lumbar spinal stenosis: Pain control, continue gabapentin. DVT prophylaxis: Enoxaparin Full code pt/ot ,cm to assist w/ dc plan. Admission and Anticipated Discharge Date Admission Date: September 21, 2024 Subjective Patient was seen and examined at bedside. Patient was lying in bed, on room air, NAD, resting comfortably. Patient reports no RLE pain, reports feeling better. Patient denies fever/sore throat/cough/chest pain. Pt reports eating ok. Physical Exam Physical Exam: Gen: A&O 3 NAD HEENT: NCAT, EOMI, not icteric. External ears normal. No rhinorrhea. Moist mucous membranes. Neck: Supple, full range of motion, no observable masses, No meningeal sign. Lungs: No Respiratory distress. CV: RRR, no edema. Abdomen: Soft, nondistended, No rebound tenderness. MSK: right foot dressing c/d/i. distal NV status wnl. Skin: No rashes, petechiae, lesions. Normal color per patient. Neuro: Normal Gait, Grossly intact. Psych: Appropriate for situation. Results & Data Results & Data Vital Signs (Past 12 Hours) Vital Signs Temp Pulse Pulse Resp BP Pulse Ox O2 Del Method 09/29/24 15:00 09/29/24 13:50 68 09/29/24 10:50 36.6 C 85 19 133/72 97 Room Air 09/29/24 07: 36.9 C 75 18 133/72 98 Room Air 09/29/24 07:02 52 L O2 Del Method 09/29/24 15:00 Room Air 09/29/24 13:50 09/29/24 10:50 09/29/24 07:25 09/29/24 07:02
[2024-09-29 17:50] VITALS: RESP 18
[2024-09-30 05:57] LABS: BUN Creatinine Ratio 14.6 (10-20); Calcium 9.5 mg/dl (8.6-10.3); Creatinine Clr Calc Pharmacy 76.2 ml/min; Magnesium 1.9 mg/dl (1.7-2.4); Potassium 3.4 mmol/L (3.5-5.1)
[2024-09-30 08:07] VITALS: BP 151/79; TEMP 97.5; O2SAT 96
[2024-09-30] MEDS: POTASSIUM CHLORIDE CRTAB 20 MEQ TABCR PO STA (08:35)
[2024-09-30] MEDS: LINEZOLID 600 MG TAB PO SCH (09:03)
--- NOTE | 2024-09-30 11:49 | Discharge Summary ---
Date of Service September 30, 2024 Admission HPI Per Admitting Provider 83 yo M w/ hx of paroxysmal atrial fibrillation, HTN, HLD, history of alcohol use, hyponatremia, SIADH, prostatitis, B12 deficiency and lumbar spinal stenosis who presents from [facility] with a foot wound. Pt is following wound care center for his foot wound, last time seen September 11, 2023 - at that time Topical Xylocaine applied to the wounds and recommended to continue to paint areas of eschar with Betadine daily and dress open areas with Aquacel Ag. Encouraged offloading with Prevalon boots. Now pt presents from [facility] as wound seems worsening. In the ED, ESR, CRP elevated. Mild leukocytosis. Foot XR obtained and concerning for possible osteomyelitis. CT foot was therefore obtained and noted 1. There is heterogeneous density with hypertrophic change and some segments of cortical loss involving the distal first metatarsal and base of the first proximal phalanx. Acute on chronic osteomyelitis considered and could be further assessed with MRI or nuclear medicine scan as warranted. 2. There are foci of cortical loss involving the second, third and fifth metatarsals also concerning for osteomyelitis. Blood cultures, and wound cultx obtained in ED. Pt was started on zosyn and daptomycin. Currently pt is laying in bed in NAD, denies any fever, chills, chest pain, shortness of breath. denies abd. pain, n/v. Pt's son is also present at the bedside, provides hx and updated. Admission Exam Per Admitting Provider Constitutional: WD/WN, vitals as above Eyes: PERRL, conjunctivae normal, anicteric sclerae ENMT: external ear and nose normal, oropharynx normal Neck: normal visual inspection Respiratory: normal respiratory effort, lungs clear to auscultation Cardiovascular: Rate/Rhythm: regular rate and regular rhythm Chest (Breasts): Chest: normal inspection of chest Gastrointestinal (Abdomen): normal bowel sounds, soft, nontender, no hepatosplenomegaly Musculoskeletal: no cyanosis or clubbing, extremities motor strength 5/5 (LE edema b/l. R foot erythema at hallux, wound at hallux and heel, no drain) Skin: no rashes, warm and dry (R foot as above) Neurologic: PERRL, EOMI, accommodation nl, no face palsy, no dysarthria Psychiatric: A+Ox3, euthymic affect Principal Diagnosis Right foot osteomyelitis Discharge Exam Gen: A&O 3 NAD HEENT: NCAT, EOMI, not icteric. External ears normal. No rhinorrhea. Moist mucous membranes. Neck: Supple, full range of motion, no observable masses, No meningeal sign. Lungs: No Respiratory distress. CV: RRR, no edema. Abdomen: Soft, nondistended, No rebound tenderness. MSK: right foot dressing c/d/i. distal NV status wnl. Skin: No rashes, petechiae, lesions. Normal color per patient. Neuro: Normal Gait, Grossly intact. Psych: Appropriate for situation. Discharge Data Allergies Allergy/AdvReac Type Severity Reaction Status Date / Time No Known Allergies Allergy Verified 09/24/24 11:19 Consultations 09/21/24 14:12 ED Decision to Admit Stat 09/21/24 14:14 Consult Podiatry Routine 09/22/24 13:21 Consult Cardiology Routine 09/24/24 16:50 Consult Infectious Diseases Routine Procedures Performed Operation Date: 09/25/24 13:55 Actual Procedures p Right First Ray Resection, right heel excisional wound debridement(Right) - Vaughn Trimble DPM Ordered Studies 09/21/24 11:22 CT foot RT wo con Stat 09/22/24 07:30 MRI Foot [MR foot RT wo/w con] Urgent 09/24/24 06:34 CL Cath Imgs for PACS use only Routine Hospital Course (1) Cellulitis of right foot: Plan 83-year-old male with PMH of paroxysmal A-fib, HTN, HLD, alcohol use, hyponatremia, SIADH, prostatitis, B12 deficiency and lumbar spinal stenosis presented from [facility] with a foot wound that is worsening. He was managed for the following: Right foot osteomyelitis MRI right foot with acute osteomyelitis of the right first metatarsal head, overlying wound with associated cellulitis. No abscess. Status post RLE angiogram 09/24, okay to move forward with surgical resection of osteomyelitis from vascular standpoint. Podiatry on board, Right First Ray Resection, right heel excisional wound debridement(Right) on 09/25. Continue with daptomycin 09/22 and Zosyn 09/21. ID evaled 09/25, dapto changed to vanco, await operative cultures. D/w ID 09/29, atb changed to linezolid w/ total of 14 day therapy from 09/25 (operative date). c/w probiotic. 09/24 CPK 192. since dapto stopped 09/25, repeat cpk on 09/27 is 151, resumed statin 09/28. Wound care. Elevate legs. Other chronic medical conditions: Continue with/resume home meds as and when able. PAF: Continue metoprolol, not on AC. Discuss anticoagulation outpatient with PCP. Hypertension: Continue with home medications. Hyponatremia, SIADH: Monitor sodium level as needed. Lumbar spinal stenosis: Pain control, continue gabapentin. DVT prophylaxis: Enoxaparin Full code pt/ot ,cm to assist w/ dc plan. Patient is being discharged back to [facility] with following instructions at the point of discharge: Follow-up with your primary care physician within a week time and likely you will need labs CBC/CMP/magnesium/phosphorus. You will be discharged on linezolid for your right foot osteomyelitis to complete 14 days of treatment since your operation on 09/25/24. Elevate your legs while sleeping, elevate as much as possible during the day to help with wound healing. Follow-up with podiatry in 1 to 2 weeks time upon discharge. Establish and follow-up with wound care regularly for ongoing wound care need. Take your medications as prescribed. Please make sure that you are able to get your medications today by calling your pharmacy before you leave the hospital so that your treatment continuity is not broken. Home Health Attestation I certify that this patient is under my care and that I, or a physicians psych assistant working with me, had a face to-face encounter that meets the home health [id number] encounter requirements with this patient. The encounter with the patient was in whole, or in part, for the following med ical condition, which is the primary reason for home health care (list medical condition): I certify that, based on my findings, the following services are medically necessary home health services: My clinical findings support the need for the above services because: Further, I certify that my clinical findings support that this patient is homebound (i.e. absences from home require considerable and taxing effort and are for medical reasons or scientologist services or infrequently or of short duration when for other reasons) because: Certification for Home Health Services: Based on the above findings, I certify that this patient is confined to the home and needs intermittent mcc care, physical therapy and/or speech therapy or continues to need occupational therapy. The patient is under my care, and I have initiated the establishment of the plan of care. This patient will be followed by a physician who will periodically review the plan of care. Total Time Total Time Spent Total Time Spent (In Minutes): 35 Discharge Plan Discharge Items Patient Disposition: Personal Assisted Reason For Visit: OSTEO Discharge Diagnosis: Right foot osteomyelitis Activity: Resume your previous activity Non-emergency contact: Primary Care Provider Call non-emergency contact if: you have any medication questions Follow-up/Referrals: Jerry Medrano MD [Outside Practitioners] - (Date & Time 10/06/2024 2:00 PM Provider: Daisha Roca MD [facility] ) Olegario Bautista [Primary Care Provider] - Diet: Heart Healthy Addtl Attending Provider Instructions: Follow-up with your primary care physician within a week time and likely you will need labs CBC/CMP/magnesium/phosphorus. You will be discharged on linezolid for your right foot osteomyelitis to complete 14 days of treatment since your operation on 09/25/24. Elevate your legs while sleeping, elevate as much as possible during the day to help with wound healing. Follow-up with podiatry in 1 to 2 weeks time upon discharge. Establish and follow-up with wound care regularly for ongoing wound care need. Take your medications as prescribed. Please make sure that you are able to get your medications today by calling your pharmacy before you leave the hospital so that your treatment continuity is not broken. Pending Studies at Discharge: No Stand-Alone Forms: My [facility] [employer] - [employer], Smoking Cessation Skilled Items Patient informed of condition?: Yes DNR: No Discharge Level of Care: Other Communicable Disease: No Discharge Prognosis: Stable Lines: None Urinary Catheter: No Medications and DC Order Prescriptions: New linezolid 600 mg Tablet 600 mg PO BID 9 Days Qty: 18 0RF Advanced Probiotic 625 mg (10 billion cell) Capsule 1 cap PO DAILY 14 Days Qty: 14 0RF Continued acetaminophen 650 mg tablet extended release 650 mg PO BID Rx Instructions: 0800, 1300 B-complex with vitamin C Tablet 1 tab PO DAILY magnesium oxide 400 mg (241.3 mg magnesium) tablet 400 mg PO DAILY Ocuvite with Lutein 1,000 unit-200 mg-60 unit-2 mg Tablet 1 tab PO QAM Systane Balance 0.6 % drops 1 drp OPB BID cholecalciferol (vitamin D3) [Vitamin D3] 25 mcg (1,000 unit) Capsule 25 mcg PO DAILY gabapentin 100 mg capsule 100 mg PO DAILY gabapentin 100 mg capsule 200 mg PO HS atorvastatin 40 mg tablet 40 mg PO DAILY furosemide 40 mg tablet 40 mg PO [facility] Rx Instructions: 0800, 1300 metoprolol succinate 50 mg tablet extended release 24 hr 50 mg PO [facility]HS polyethylene glycol 3350 [Miralax] 17 gram Powder In Packet 17 g PO DAILY PRN (Reason: Constipation) docusate sodium 50 mg Capsule 100 mg PO DAILY PRN (Reason: Constipation) potassium chloride [Klor-Con 10] 10 mEq Tablet Extended Release 10 meq PO BID acetaminophen 650 mg Tablet 650 mg PO DAILY PRN (Reason: Pain) Blue Emu Arthritic Joint Ointment 1 applic topical UD Rx Instructions: apply to upper legs for pain Discharge Orders: Discharge Order (Routine); Ordered 09/30/24 Ordered By: Darek Hoffman Admission Data Admit Date/Time: 09/21/24 14:16 Attending Provider: Darek Hoffman Admit Provider: Hernandez Jaquez [facility] Other Providers: [facility]; Hernandez Jaquez; Vaughn Trimble; Raj Tripp; Guilherme Carlisle; Matthieu Ga; Dejuan Wang I.; Bobby De Leon II; Harriet Molina; Galdino Mata; Severino Crowell; Santos Carlson; Ronak Moncada; [facility]
[2024-09-30 13:17] VITALS: PULSE 67
--- NOTE | 2024-10-20 16:50 | Operative Report ---
Post Operative Report Pre & Post Diagnosis Operation Date: 09/25/24 13:55 Pre-Op Diagnosis: Osteomyelitis Cellulitis of right foot Open wound of right foot Other specified peripheral vascular diseases Post-Op Diagnosis: Osteomyelitis Cellulitis of right foot Open wound of right foot Other specified peripheral vascular diseases I identified the patient and participated in the time-out.: Yes Procedure Operation Date: 09/25/24 13:55 Actual Procedures p Right First Ray Resection, right heel excisional wound debridement(Right) - Vaughn Trimble DPM Surgeon Vaughn Trimble DPM Butt Welder Coleen Galvez Estimated Blood Loss 10 Findings Consistent with Post-Op Diagnosis Specimens Right first ray sent for pathology testing with proximal margin sent as well. Anesthesia Type MAC Complications none Disposition Accompanied Patient To Recovery: Yes Disposition: Recovery Room Description of Procedure patient was brought to the operating room and left on the inpatient hospital bed for the duration of the procedure. Following initiation of IV sedation, local analgesia was obtained utilizing 20 cc of half percent Marcaine in a local block fashion. No tourniquet was utilized during the duration of this procedure given his vascular compromise. The right lower extremity was scrubbed, prepped, and draped in the usual aseptic manner. Attention was directed to the right foot where 2 converging semielliptical incisions were made circumferentially around the ulceration to the right first metatarsal head. The incision was carried proximally along the first metatarsal medially and directed down to the level of the bone utilizing sharp dissection techniques. No significant bleeding was noted on surgical dissection. All soft tissue attachments were reflected from the metatarsal which was transected with a sagittal saw along the proximal third of the bone. The toe was disarticulated by dissecting soft tissue attachments of the metatarsal and this was passed off to the back table in one specimen. A agricultural sales representative sample was obtained and sent for proximal margin testing. No deep purulent drainage was noted though the head of the metatarsal was significantly necrotic. The surgical site was flushed with copious amounts of sterile saline and closure was performed utilizing 2-0 nylon and large retention sutures. The surgical site was packed with iodoform gauze as well. Surgical site was then dressed with Xeroform gauze, 4 x 4 gauze, Kerlix, and Tim wrap. The patient tolerated the procedure well and was transferred to the recovery room with vital signs stable and vest are status intact to the feet. Following postoperative monitoring, he will be given instructions and transferred back to the floor for further testing and evaluation with likely discharge in the next few days. I attest to the content of the Intraoperative Record and any orders documented therein. Any exceptions are noted below.
== END 2024-09-30 15:43 | disposition home or self-care (01) | DRG 475 ==
LOC: ED 09:44 → SUATTDRO 14:16 → EDINP 14:16 → 2N 15:06 → 2S 09-24 15:05
PROC: CLB.AEU (2024-09-24 12:00)